=== PATIENT | female | born 1945 | race Two or more races ===

== ENCOUNTER 2017-06-09 14:55 | Emergency (ER) | payer MEDICAID ==
[~2017-06-09] VITALS: Ht 157.5 cm; Wt 56.7 kg
[~2017-06-09 14:55] MED LIST: ACETAMINOPHEN-1 EAC1 ORAL; GLUCOPHAGE1000 MG ORAL; GLUCOTROL XL5 MG PO; LIPITOR10 MG ORAL; METFORMIN HCL500 M1 ORAL; NKM; NORCO 5-325 TA1 EACH ORAL; THIAMINE HCL100 MG ORAL; [UNRECOGNIZED DRUG - REMARK]; metformin PO
[2017-06-09 15:14] VITALS: BP 124/95
[2017-06-09] MEDS ORDERED: NITROFURANTOIN100 M2 ORAL (15:22)
[2017-06-09 15:27] VITALS: BP 124/95
--- NOTE | 2017-06-09 15:43 | Emergency Room Report ---
History of Present Illness General Chief Complaint: General Complaint Source: Patient Present Illness HPI 72-year-old male brought in with daughter and granddaughter because adult daycare states patient has rash underneath his left breast, and foul-smelling vaginal discharge. Per family, sits in wet diaper for extended period of time History of uterine prolapse as per EMR and known urinary incontinence Patient herself denies polyuria, dysuria or discharge she denies abdominal pain, nausea or vomiting history of diabetes, compliant with medication Allergies: Coded Allergies: NO KNOWN DRUG ALLERGIES (Verified Allergy, Unknown, 06/09/17) Patient History Past Medical History: DM Past Surgical History: none Pertinent Family History: none Now: No Immunizations: UTD Reviewed Nursing Documentation: PMH: Agreed, PSxH: Agreed Nursing Documentation-PMH Hx Cardiac Problems: No Hx Hypertension: Yes Hx Diabetes: Yes Hx Gastrointestinal Problems: No Review of Systems All Other Systems: negative except mentioned in HPI Physical Exam Vital Signs Date Time Temp Pulse Resp B/P (MAP) Pulse Ox O2 Delivery O2 Flow Rate FiO2 06/09/17 15:04 74 20 124/95 99 Room Air Sp02 EP Interpretation: reviewed, normal General Appearance: normal inspection, well appearing, no apparent distress, alert, GCS 15, non-toxic Head: normocephalic, atraumatic Eyes: bilateral eye PERRL, bilateral eye EOMI ENT: normal ENT inspection, hearing grossly normal, normal pharynx, no angioedema, normal voice, TMs + canals normal, uvula midline, moist mucus membranes Neck: normal inspection, full range of motion, supple, thyroid normal, no meningismus, no bony tend Respiratory: normal inspection, lungs clear, normal breath sounds, no rhonchi, no respiratory distress, no retraction, no accessory muscle use, no wheezing, speaking full sentences Cardiovascular #1: regular rate, rhythm, no edema, no JVD, normal capillary refill Gastrointestinal: normal inspection, normal bowel sounds, non tender, soft, no mass, no peritonitis, non-distended, no guarding, no hernia, no pulsatile mass Genitourinary: no CVA tenderness Musculoskeletal: normal inspection, back normal, normal range of motion, no calf tenderness, pelvis stable, Pa's Sign negative Neurologic: normal inspection, alert, oriented x3, responsive, manager visual III-XII nml as tested, motor strength/tone normal, cerebellar normal, normal gait, speech normal Psychiatric: normal inspection, judgement/insight normal, mood/affect normal, no suicidal/homicidal ideation, no delusions Skin: other - done with MARYANNE Trevino present. There is moist skin breakdown underneath lateral aspects of both large/drooped breasts. No erythema, warmth or signs of infection Lymphatic: normal inspection, no adenopathy Medical Decision Making Diagnostic Impression: Primary Impression: Skin breakdown Additional Impression: Incontinence Qualified Codes: R32 - Unspecified urinary incontinence ER Course patient with stable vitals, afebrile Given the history of incontinence and uterine prolapse and reported discharge, will treat empirically for UTI There is skin breakdown under both breasts, recommended [id number] baby powder, no sign of infection or cellulitis currently Advise close primary care followup Patient refused to provide urinary sample for UA ER course: Patient has remained stable during ED stay. Disposition: Patient is to be discharged to home. Prescriptions given are macrobid Patient is instructed to follow up with their primary care doctor within 5 days. Strict return precautions discussed with patient such as fever, chills, worsening/severe pain, nausea, vomiting, which may indicate severe illness. Patient verbalizes understanding and agrees with plan. Please note that this Emergency Department Report was dictated using Comic Replyverification clerk technology software, occasionally this can lead to erroneous entry secondary to interpretation by the dictation equipment Last Vital Signs Date Time Temp Pulse Resp B/P (MAP) Pulse Ox O2 Delivery O2 Flow Rate FiO2 06/09/17 15:27 74 20 124/95 99 Room Air Status: improved Disposition: HOME, SELF-CARE Condition: Improved Scripts Nitrofurantoin Monohyd/M-Cryst* (MACROBID 100 MG*) 100 Mg Capsule 100 MG ORAL EVERY 12 HOURS for 7 Days, #14 CAP Prov: JARVIS HARRINGTON M.D. 06/09/17 Referrals: [facility],REFERR[facility] (PCP) Patient Instructions: Urinary Tract Infection, [id number] Additional Instructions: take all antibiotics until finished. Apply [id number] baby powder underneath both breasts daily after showering to reduce moisture in area. Follow up with primary care doctor for neurology or psychiatry referral to evaluate possibility of dementia JARVIS HARRINGTON M.D. Jun 09, 2017 15:43
== END 2017-06-09 16:12 | disposition home or self-care (01) ==
LOC: EMR 15:20
DX: L98.9 Disorder of the skin and subcutaneous tissue, unspecified (principal); R32 Unspecified urinary incontinence; I10 Essential (primary) hypertension; E11.9 Type 2 diabetes mellitus without complications
CPT/HCPCS: 99283

== ENCOUNTER 2018-07-28 22:31 | Inpatient (IN) | payer MEDICAID ==
[~2018-07-28] VITALS: Ht 152.4 cm; Wt 67.1 kg
[~2018-07-28 22:31] MED LIST changes: +NITROFURANTOIN100 M2 ORAL
[2018-07-28 23:05] VITALS: BP 160/103
--- NOTE | 2018-07-28 23:05 | NUR ---
ED Nurse Note: Pt arrived ED from Home. C/o vaginal bleeding today. Pt is A/O X4. Vital signs stable at this time. Waitng for orders.
--- NOTE | 2018-07-28 23:20 | NUR ---
ED Nurse Note: Blood sample collected and sent to Lab.
--- NOTE | 2018-07-28 23:31 | NUR ---
ED Nurse Note: Pt was sent down for CT of abdomen.
[2018-07-28 23:33] LABS: EOSINOPHILS % (AUTO) 5.4 % (0.0-3.0); HEMATOCRIT 25.3 % (37.0-47.0); HEMOGLOBIN 8.6 G/DL (12.0-16.0); LYMPHOCYTES % (AUTO) 15.3 % (20.0-45.0); MEAN CORPUSCULAR VOLUME 88 FL (80-99); MONOCYTES % (AUTO) 5.3 % (1.0-10.0); NEUTROPHILS % (AUTO) 72.9 % (45.0-75.0); PLATELET COUNT 284 K/UL (150-450); RED BLOOD COUNT 2.87 M/UL (4.20-5.40); RED CELL DISTRIBUTION WIDTH 12.4 % (11.6-14.8)
[2018-07-28 23:40] LABS: ANION GAP 7 mmol/L (5-15); BLOOD UREA NITROGEN 34 mg/dL (7-18); CALCIUM 8.5 MG/DL (8.5-10.1); CARBON DIOXIDE 25 MMOL/L (21-32); CHLORIDE 101 MMOL/L (98-107); CREATININE 1.6 MG/DL (0.55-1.30); POTASSIUM 5.3 MMOL/L (3.5-5.1); SODIUM 133 MMOL/L (136-145)
[2018-07-28 23:45] LABS: ALANINE AMINOTRANSFERASE 11 U/L (12-78); ALBUMIN/GLOBULIN RATIO 0.7 (1.0-2.7); ALKALINE PHOSPHATASE 92 U/L (46-116); ASPARTATE AMINO TRANSFERASE 9 U/L (15-37); BILIRUBIN,TOTAL 0.2 MG/DL (0.2-1.0)
[2018-07-29 00:10] LABS: APPEARANCE,URINE CLOUDY; BILIRUBIN, URINE NEGATIVE (NEGATIVE); GLUCOSE, URINE (UA) 2+ (NEGATIVE); KETONES,URINE NEGATIVE (NEGATIVE); LEUKOCYTE ESTERASE ,URINE 3+ (NEGATIVE); NITRITE,URINE NEGATIVE (NEGATIVE); PH,URINE 6 (4.5-8.0); PROTEIN,URINE 3+ (NEGATIVE); UROBILINOGEN,URINE NORMAL MG/DL (0.0-1.0)
[2018-07-29 00:19] LABS: COLOR,URINE RED
[2018-07-29] MEDS ORDERED: ASPIRIN81 MG ORAL (02:12)
[2018-07-29] MEDS ORDERED: FLUOCINONIDE-E15 G1 TP (02:12)
[2018-07-29] MEDS ORDERED: CARVEDILOL3.125 MG ORAL (02:12)
[2018-07-29] MEDS ORDERED: GABAPENTIN300 MG ORAL (02:12)
[2018-07-29] MEDS ORDERED: ZANTAC150 MG ORAL (02:12)
[2018-07-29] MEDS ORDERED: METFORMIN HCL500 M1 ORAL (02:12)
[2018-07-29] MEDS ORDERED: LISINOPRIL2.5 MG ORAL (02:12)
[2018-07-29] MEDS ORDERED: IBUPROFEN600 MG ORAL (02:12)
[2018-07-29] MEDS ORDERED: PLAVIX75 MG ORAL (02:12)
[2018-07-29] MEDS ORDERED: Tylenol #3 tab (300mg/30mg) ORAL ONE (02:15)
--- NOTE | 2018-07-29 02:20 | Emergency Room Report ---
History of Present Illness General Chief Complaint: Vaginal Source: Patient, Family Member Present Illness [facility] This a 73-year-old female who has history of diabetes and high blood pressure. She presents with chief complaint of vaginal bleeding. Onset today. Bleeding is heavy like a normal menstrual period. Patient is complaining of cramping pain. No nausea no vomiting. According to family for last couple months she's been getting paler. No trauma. Questional weight loss. No nausea no vomiting. Pain is 7 out of 10. No radiation. She has a history of uterine prolapse. Did not require surgery. Allergies: Coded Allergies: NO KNOWN DRUG ALLERGIES (Verified Allergy, Unknown, 06/09/17) Patient History Past Medical History: see triage record, old chart reviewed, DM, HTN Past Surgical History: other Pertinent Family History: none Social History: Denies: smoking Last Menstrual Period: 3 decades ago Now: No Immunizations: other Reviewed Nursing Documentation: PMH: Agreed; PSxH: Agreed Nursing Documentation-PMH Hx Cardiac Problems: No Hx Hypertension: Yes Hx Diabetes: Yes Hx Gastrointestinal Problems: No Review of Systems Eye: Denies: eye pain, blurred vision ENT: Denies: ear pain, nose congestion, throat swelling Respiratory: Denies: cough, shortness of breath Cardiovascular: Denies: chest pain, palpitations Gastrointestinal: Denies: abdominal pain, diarrhea, nausea, vomiting Genitourinary: Reports: vag bleed/dc Musculoskeletal: Denies: back pain, joint pain Skin: Denies: rash Neurological: Denies: headache, numbness Endocrine: Denies: increased thirst, increased urine Hematologic/Lymphatic: Denies: easy bruising All Other Systems: negative except mentioned in HPI Physical Exam Vital Signs Date Time Temp Pulse Resp B/P (MAP) Pulse Ox O2 Delivery O2 Flow Rate FiO2 07/28/18 22:41 98.1 70 16 89/50 96 Room Air vitals with hypotension. Repeat blood pressure Normal Sp02 EP Interpretation: reviewed, normal General Appearance: well appearing, no apparent distress, alert Head: normocephalic, atraumatic Eyes: bilateral eye PERRL, bilateral eye EOMI, bilateral eye conjunctivae pale ENT: hearing grossly normal, normal pharynx Neck: full range of motion, supple, no meningismus Respiratory: chest non-tender, lungs clear, normal breath sounds Cardiovascular #1: regular rate, rhythm, no murmur Gastrointestinal: normal bowel sounds, non tender, no mass, no organomegaly, no bruit, non-distended Genitourinary: other - Blood clots in the vagina. Musculoskeletal: back normal, gait/station normal, normal range of motion Neurologic: alert, oriented x3 Psychiatric: mood/affect normal Skin: warm/dry Medical Decision Making Diagnostic Impression: Primary Impression: Uterine malignancy Qualified Codes: C55 - Malignant neoplasm of uterus, part unspecified Additional Impressions: Abnormal vaginal bleeding Anemia Qualified Codes: D64.9 - Anemia, unspecified UTI (urinary tract infection) Qualified Codes: N30.00 - Acute cystitis without hematuria Hyperglycemia due to type 2 diabetes mellitus Qualified Codes: E11.65 - Type 2 diabetes mellitus with hyperglycemia ER Course Patient presents with postmenopausal she no bleeding. This is very concerning for neoplastic process. CT scan showed suspicion for endometrial carcinoma. Pelvic ultrasound limited because of patient's lack of cooperation. She still has bleeding and is anemic. Her last hemoglobin was September 2015 and it was 12.1. This is a big drop. Will admit for further workup and CLERICAL AIDE TEACHER consult. I discussed the case with Dr. Mckeon who accepted patient for admission. Lab Results Impression labs with anemia CT/MRI/US Diagnostic Results CT/MRI/US Diagnostic Results #1: Imaging Test Ordered: CT abdomen and pelvis Impression Read by radiologist. Market abnormality of the uterus. Fundus of uterus demonstrate significant endometrial thickening measured greater than 18 mm. There is gas within the endometrium. Findings suspicious for endometrial carcinoma. CT/MRI/US Diagnostic Results #2: Imaging Test Ordered: Pelvic ultrasound Impression Read by radiologist. Limited study because patient had a hard time tolerating the examination. Markedly enlarged and heterogeneous endometrium. Last Vital Signs Date Time Temp Pulse Resp B/P (MAP) Pulse Ox O2 Delivery O2 Flow Rate FiO2 07/28/18 23:05 98.1 71 16 160/103 96 Room Air Status: improved Disposition: ADMITTED INPATIENT Condition: Serious Referrals: [facility],REFERRING (PCP) Gabino Hennessy MD Jul 29, 2018 02:20
[2018-07-29 02:30] VITALS: BP 126/44
--- NOTE | 2018-07-29 02:35 | NUR ---
TRANSFER TO FLOOR: Patient transferred to /S [facility] as ordered . Report given to Rosemary/MARYANNE, Meagan/Alyssa. Belongings sent with Pt and rechecked with RN.
[2018-07-29 04:00] VITALS: BP 115/43
--- NOTE | 2018-07-29 04:00 | NUR ---
NURSE NOTES: Called Dr Mckeon and left a message for admission orders. Waiting for response. Will try again
--- NOTE | 2018-07-29 05:30 | NUR ---
NURSE NOTES: Called Dr Mckeon and left a message for admission orders. Waiting for response. Will try again
--- NOTE | 2018-07-29 06:14 | NUR ---
NURSE NOTES: 3rd call placed to Dr. Mckeon for admission orders. Awaiting call back.
[2018-07-29] MEDS ORDERED: Morphine Sulfate 2mg/ml Inj(IV/IM USE ONLY) IVP PRN (07:00)
--- NOTE | 2018-07-29 07:43 | NUR ---
HAND-OFF: Report given to Linda MADDEN.
[2018-07-29 08:00] VITALS: BP 110/44
--- NOTE | 2018-07-29 08:17 | NUR ---
NURSE NOTES: Patient is alert to name and place. Patient is near nurse's station. Bed alarm, side rails are up x2. Patient is on room air. No reports of discomfort at the moment. Will continue to monitor.
[2018-07-29] MEDS ORDERED: metFORMIN 500mg tab ORAL SCH (09:00)
--- NOTE | 2018-07-29 09:21 | NUR ---
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
--- NOTE | 2018-07-29 09:27 | Diagnostic Imaging Report ---
Indication: Abdominal pain for 3 days Technique: Spiral acquisitions obtained through the abdomen and pelvis. No oral contrast utilized, per emergency room physician request No IV contrast utilized, per emergency room physician request.. Multiplanar reconstructions were generated. Total dose length product 856.14 mGycm. CTDIvol(s) 18.84 mGy. Dose reduction achieved using automated exposure control Comparison: 08/28/[address] Findings: There is a pessary in place in the vaginal vault. Scanner in marked improvement of previously demonstrated pelvic floor prolapse. An unusual structure is seen anterior to the pessary in the vaginal vault. The more inferior aspect of this within the vagina is very well-circumscribed, ovoid and cylindrical, possibly representing an artificial obstruction. However, posterior to this it is more ill-defined and is contiguous with endometrial and cervical thickening and unusual gas bubbles. Within the uterus, the endometrium is thickened. A small amount of gas is seen within the endometrium in the upper uterine fundus. The appendix is normal. There is colonic diverticulosis. No evidence of diverticulitis. No free or loculated intraperitoneal gas or fluid is evident. There is a tiny fat-containing central ventral hernia. No small bowel distention. There is a small sliding-type hiatal hernia. The remainder of the stomach is unremarkable. The duodenum is unremarkable. Lack of IV contrast limits assessment of solid organs. Gallstones are evident, also described previously. The liver is grossly unremarkable. No biliary ductal dilatation. Pancreas, spleen, adrenals are unremarkable. There is interim marked atrophy of the left kidney. There is mild to moderate left hydronephrosis, but no evidence of hydroureter. No evidence of downstream obstructive ureteral lesion. The right kidney, ureters, and bladder are unremarkable. The included lung bases are clear. The bones demonstrate degenerative spondylosis changes. Impression: Interim correction of previously demonstrated pelvic floor prolapse. Pessary in place. Unusual gas and solid structure in the posterior vagina anterior to the pessary. Well circumscribed cylindrical appearance to this inferiorly suggests this could be related to prior surgery. However, this is less well-defined posteriorly, and it is contiguous with thickening of the endometrium and gas within the endometrium. This raises concern for endometrial pathology such as endometritis and/or and endometrial neoplasm. Gynecological consultation is recommended. Interim marked atrophy of the left kidney. Mild hydronephrosis raises possibility of this could be due to obstruction at the ureteropelvic junction. However, the possibility of unilateral renal artery stenosis or occlusion should also be considered as etiology. No acute abdominal pathology Diverticulosis. No evidence of diverticulitis Cholelithiasis, also previously described Other findings as noted, including tiny fat-containing ventral hernia, small sliding-type hiatal hernia, degenerative spondylosis This agrees with the preliminary interpretation provided overnight by [facility] teleradiology service. The CT scanner at [facility] is accredited by the [employer] and the scans are performed using protocols designed to limit radiation exposure to as low as reasonably achievable to attain images of sufficient resolution adequate for diagnostic evaluation.
--- NOTE | 2018-07-29 11:25 | NUR ---
*-* INSURANCE *-* ALL CLINICALS, REVIEWS HAVE BEEN FAXED TO: MARSHALL RIBERA P:[phone] F:[phone] F: [phone]
--- NOTE | 2018-07-29 11:57 | Diagnostic Imaging Report ---
Indication: Pelvic pain and bleeding, postmenopausal patient, abnormal CT scan Technique: Transabdominal images. Limited endovaginal images, patient has limited ability to tolerate. Comparison: Reference made to CT scan performed 2 hours earlier Findings: Uterus measures 6.3 cm length by 4 cm AP. Endometrium is thickened, measuring up to 14 mm thick. Echogenic foci may reflect gas seen within the endometrium on recent CT. The cervical and vaginal abnormality demonstrated on prior CT is not clearly evident. Neither ovary could be demonstrated. Impression: Limited exam, as described Endometrial thickening, concerning for infection or neoplasm given findings on recent CT scan This agrees with the preliminary interpretation provided overnight by [facility] service.
[2018-07-29 12:00] VITALS: BP 140/55
--- NOTE | 2018-07-29 12:48 | Consultation ---
History of Present Illness General Date patient seen: Jul 29, 2018 Chief Complaint: Vaginal Present Illness HPI 73-year-old female with hx of DM, HTN, presented to ER with chief complaint of heavy vaginal bleeding for one day. Patient is complaining of cramping pain as well. No nausea no vomiting. According to family for last couple months she 's been getting paler. she was found anemic and admitted for further management. Allergies: Coded Allergies: NO KNOWN DRUG ALLERGIES (Verified Allergy, Unknown, 06/09/17) Medication History Scheduled Aspirin* (Aspirin*), 81 MG ORAL DAILY, (Reported) Atorvastatin Calcium* (Lipitor*), 10 MG ORAL BEDTIME Carvedilol* (Carvedilol*), 3.125 MG ORAL EVERY 12 HOURS, (Reported) Clopidogrel Bisulfate* (Plavix*), 75 MG ORAL DAILY, (Reported) Gabapentin* (Gabapentin*), 300 MG ORAL BEDTIME, (Reported) Glipizide* (Glucotrol Xl*), 1 TAB PO BID, (Reported) Lisinopril* (Lisinopril*), 2.5 MG ORAL DAILY, (Reported) Metformin Hcl (Glucophage), 1,000 MG ORAL DAILY, (Reported) Metformin Hcl* (Metformin Hcl*), 500 MG ORAL TWICE A DAY, (Reported) Metformin Hcl* (Metformin Hcl*), 500 MG ORAL TWICE A DAY, (Reported) Nitrofurantoin Monohyd/M-Cryst* (Macrobid 100 Mg*), 100 MG ORAL EVERY 12 HOURS No Known Medications* (NKM - No Known Medications*), 0 ., (Reported) Ranitidine Hcl* (Zantac*), 150 MG ORAL DAILY, (Reported) Thiamine Hcl (Vitamin B1*), 100 MG ORAL DAILY [metformin], 1 TAB PO BID, (Reported) Scheduled PRN Acetaminophen With Codeine (T#3) (Tylenol #3 Tab*), 1 TAB ORAL Q6H PRN for For Pain Hydrocodone Bit/Acetaminophen 5-325* (Fellows 5-325*), 1 TAB ORAL Q6H PRN for For Pain Ibuprofen* (Motrin*), 400 MG ORAL Q6H PRN for For Pain, (Reported) Miscellaneous Medications Fluocinonide/Emollient (Fluocinonide-E 0.05% Cream), 15 GM TP, (Reported) [unk HTN pill], (Reported) Patient History Healthcare decision maker Resuscitation status Full Code Advanced Directive on File No Past Medical/Surgical History Past Medical/Surgical History: (1) Hypertension, uncontrolled (2) Diabetes mellitus (3) Alcohol dependence (4) Incontinence Review of Systems All Other Systems: negative except mentioned in HPI Physical Exam General Appearance: WD/WN, no apparent distress Lines, tubes and drains: peripheral HEENT: normocephalic, atraumatic Neck: non-tender, normal alignment Respiratory/Chest: chest wall non-tender, lungs clear Cardiovascular/Chest: normal peripheral pulses, normal rate Abdomen: normal bowel sounds, non tender Genitourinary/Rectal: normal genital exam Extremities: normal range of motion Last 24 Hour Vital Signs Date Time Temp Pulse Resp B/P (MAP) Pulse Ox O2 Delivery O2 Flow Rate FiO2 07/29/18 12:00 99.0 74 16 140/55 (83) 95 07/29/18 08:42 68 110/44 07/29/18 08:00 97.5 68 16 110/44 (66) 96 07/29/18 08:00 Room Air 07/29/18 04:00 97.3 63 18 115/43 (67) 97 07/29/18 02:55 98.1 07/29/18 02:35 98.1 72 16 125/87 97 Room Air 07/29/18 02:30 97.2 64 18 126/44 (71) 100 07/29/18 02:30 Room Air 07/28/18 23:05 98.1 71 16 160/103 96 Room Air 07/28/18 22:41 98.1 70 16 89/50 96 Room Air Intake and Output 07/28/18 07/29/18 19:00 07:00 Intake Total 1100 ml Balance 1100 ml Intake IV Total 1100 ml # Voids 1 Laboratory Tests Test 07/28/18 23:08 07/28/18 23:55 White Blood Count 15.0 K/UL (4.8-10.8) H Red Blood Count 2.87 M/UL (4.20-5.40) L Hemoglobin 8.6 G/DL (12.0-16.0) L Hematocrit 25.3 % (37.0-47.0) L Mean Corpuscular Volume 88 FL (80-99) Mean Corpuscular Hemoglobin 30.1 PG (27.0-31.0) Mean Corpuscular Hemoglobin Concent 34.1 G/DL (32.0-36.0) Red Cell Distribution Width 12.4 % (11.6-14.8) Platelet Count 284 K/UL (150-450) Mean Platelet Volume 6.6 FL (6.5-10.1) Neutrophils (%) (Auto) 72.9 % (45.0-75.0) Lymphocytes (%) (Auto) 15.3 % (20.0-45.0) L Monocytes (%) (Auto) 5.3 % (1.0-10.0) Eosinophils (%) (Auto) 5.4 % (0.0-3.0) H Basophils (%) (Auto) 1.0 % (0.0-2.0) Sodium Level 133 MMOL/L (136-145) L Potassium Level 5.3 MMOL/L (3.5-5.1) H Chloride Level 101 MMOL/L (98-107) Carbon Dioxide Level 25 MMOL/L (21-32) Anion Gap 7 mmol/L (5-15) Blood Urea Nitrogen 34 mg/dL (7-18) H Creatinine 1.6 MG/DL (0.55-1.30) H Estimat Glomerular Filtration Rate mL/min (>60) Glucose Level 320 MG/DL (74-106) H Calcium Level 8.5 MG/DL (8.5-10.1) Total Bilirubin 0.2 MG/DL (0.2-1.0) Aspartate Amino Transf (AST/SGOT) 9 U/L (15-37) L Alanine Aminotransferase (ALT/SGPT) 11 U/L (12-78) L Alkaline Phosphatase 92 U/L (46-116) Total Protein 7.4 G/DL (6.4-8.2) Albumin 3.0 G/DL (3.4-5.0) L Globulin 4.4 g/dL Albumin/Globulin Ratio 0.7 (1.0-2.7) L Lipase 296 U/L (73-393) Urine Color Red Urine Appearance Cloudy Urine pH 6 (4.5-8.0) Urine Specific [place] 1.010 (1.005-1.035) Urine Protein 3+ (NEGATIVE) H Urine Glucose (UA) 2+ (NEGATIVE) H Urine Ketones Negative (NEGATIVE) Urine Blood 5+ (NEGATIVE) H Urine Nitrite Negative (NEGATIVE) Urine Bilirubin Negative (NEGATIVE) Urine Urobilinogen Normal MG/DL (0.0-1.0) Urine Leukocyte Esterase 3+ (NEGATIVE) H Urine RBC Tntc /HPF (0 - 2) H Urine WBC 5-10 /HPF (0 - 2) H Urine Squamous Epithelial Cells Few /LPF (NONE/OCC) Urine Bacteria Few /HPF (NONE) Height (Feet): 5 Height (Inches): 0.00 Weight (Pounds): 148 Medications Current Medications Medications (Trade) Dose Ordered Sig/Kannan Route PRN Reason Start Time Stop Time Status Last Admin Dose Admin Acetaminophen (Tylenol) 650 mg Q6H PRN ORAL Mild Pain/Temp > 100.5 07/29/18 07:00 08/28/18 06:59 Acetaminophen/ Hydrocodone Bitart (Fellows 5/325) 1 tab Q6H PRN ORAL Moderate Pain (Pain Scale 4-6) 07/29/18 07:00 08/05/18 06:59 Carvedilol (Coreg) 3.125 mg EVERY 12 HOURS ORAL 07/29/18 09:00 08/28/18 08:59 Dextrose (Dextrose 50%) 25 ml Q30M PRN IV Hypoglycemia 07/29/18 07:00 08/28/18 06:59 Dextrose (Dextrose 50%) 50 ml Q30M PRN IV Hypoglycemia 07/29/18 07:00 08/28/18 06:59 Famotidine (Pepcid) 20 mg DAILY ORAL 07/29/18 09:00 08/28/18 08:59 07/29/18 08:42 Fluocinonide (Lidex) 1 applic DAILY TOPIC 07/29/18 10:00 08/28/18 09:59 Gabapentin (Neurontin) 300 mg BEDTIME ORAL 07/29/18 21:00 08/28/18 20:59 Insulin Aspart (NovoLOG) BEFORE MEALS AND HS SUBQ 07/29/18 11:30 08/28/18 11:29 Morphine Sulfate (Morphine Sulfate) 2 mg Q4H PRN IVP Severe Pain (Pain Scale 7-10) 07/29/18 07:00 08/05/18 06:59 Ondansetron HCl (Zofran) 4 mg Q4H PRN IVP Nausea & Vomiting 07/29/18 07:00 08/28/18 06:59 Sodium Chloride 1,000 ml @ 75 mls/hr [id number] IV 07/29/18 07:30 08/28/18 07:29 07/29/18 08:42 Assessment/Plan Problem List: (1) Uterine malignancy ICD Codes: C55 - Malignant neoplasm of uterus, part unspecified SNOMED: 722509808 Qualifiers: Qualified Codes: C55 - Malignant neoplasm of uterus, part unspecified (2) Anemia ICD Codes: D64.9 - Anemia, unspecified SNOMED: 678783670 Qualifiers: Qualified Codes: D64.9 - Anemia, unspecified (3) UTI (urinary tract infection) ICD Codes: N39.0 - Urinary tract infection, site not specified SNOMED: 33501176, 51076135 Qualifiers: Qualified Codes: N30.00 - Acute cystitis without hematuria (4) Abnormal vaginal bleeding ICD Codes: N93.9 - Abnormal uterine and vaginal bleeding, unspecified SNOMED: 738047222 (5) Diabetes mellitus ICD Codes: E11.9 - Type 2 diabetes mellitus without complications SNOMED: 98936107 (6) Incontinence ICD Codes: R32 - Unspecified urinary incontinence SNOMED: 44849907 Assessment/Plan tumor markers [facility] and oncology evaluation prn prbc sliding scale diabetic diet symptomatic treatment. Oscar Quezada MD Jul 29, 2018 12:48
[2018-07-29] MEDS: Fluocinonide 15gm Cream TOPIC SCH (13:03)
[2018-07-29] MEDS: NovoLOG Insulin Flexpen SUBQ SCH ×3 (13:43→21:50)
[2018-07-29 15:14] LABS: CREATINE KINASE 43 U/L (26-308)
--- NOTE | 2018-07-29 15:20 | NUR ---
NURSE NOTES: Responded to Bed Alarm and discovered that patient pulled out 2nd IV today, and was attempting to get dressed, putting her shoes on. Stated in Burkinan that she wanted to go home. Reoriented by Primary RN Maggie in Burkinan. Bed in low position, and I am remaining at bedside with patient, as she continues to try to get out of bed, and is unsteady on feet. New IV started in RFA and wrapped with gauze. Called daughter Manisha and she spoke to patient, explaining that she plans to come to the hospital in approximately 2 hours. Assisted to Bedside Commode and Urine specimen obtained and sent to lab per Md order
[2018-07-29] MEDS: Piperacillin/Tazobactam 3.375 GM in NS 110 ML IVPB SCH ×2 (15:27→23:10)
[2018-07-29 16:00] VITALS: BP 133/68
[2018-07-29] MEDS ORDERED: NovoLOG Insulin Flexpen SUBQ SCH (16:30)
[2018-07-29 16:34] LABS: APPEARANCE,URINE SLIGHTLY CLOUDY; BILIRUBIN, URINE NEGATIVE (NEGATIVE); GLUCOSE, URINE (UA) NEGATIVE (NEGATIVE); KETONES,URINE NEGATIVE (NEGATIVE); LEUKOCYTE ESTERASE ,URINE 3+ (NEGATIVE); NITRITE,URINE NEGATIVE (NEGATIVE); PH,URINE 7 (4.5-8.0); PROTEIN,URINE 3+ (NEGATIVE); UROBILINOGEN,URINE NORMAL MG/DL (0.0-1.0)
[2018-07-29 16:36] LABS: COLOR,URINE RED
[2018-07-29] MEDS: LORazepam Inj 2mg/ml 1ml IV PRN ×2 (17:30→22:50)
--- NOTE | 2018-07-29 19:25 | NUR ---
NURSE NOTES: Patient observed pulling out IV x4. Patient restless and attempting to get out of bed. Patient is unsteady. Patient is non-compliant. Bilateral soft wrist restraints applied. Will continue to monitor.
--- NOTE | 2018-07-29 19:26 | NUR ---
HAND-OFF: Report given to MARYANNE Allan.
--- NOTE | 2018-07-29 19:27 | History & Physical ---
History and Physical History & Physicial Dictated for Int Med-Dr Mckeon no. [id number] Rhys Yousif MD Jul 29, 2018 19:27
--- NOTE | 2018-07-29 22:02 | History and Physical Report ---
DATE OF ADMISSION: 07/29/2018 CHIEF COMPLAINT: The patient is a 73-year-old female, presents with a chief complaint of vaginal bleeding. HISTORY OF PRESENT ILLNESS: Began one day prior to admission. The patient began to experience vaginal bleeding. The patient states it was like her normal period; however, she has been postmenopausal for several years. The patient complains of cramping with the bleeding. The patient presented to [facility]. The patient is admitted with post menopausal vaginal bleeding to rule out acute uterine carcinoma. REVIEW OF SYSTEMS: CONSTITUTIONAL: The patient denies weight loss or weight gain. The patient denies fevers or chills. HEENT: The patient denies ear or throat pain. The patient denies headache. CARDIOVASCULAR: The patient denies palpitations or chest pain. CHEST: The patient denies wheeze or shortness of breath. ABDOMEN: The patient denies nausea, vomiting, diarrhea, or constipation. GENITOURINARY: The patient complains of vaginal bleeding as above. The patient denies dysuria or increased frequency of urination. NEUROMUSCULAR: The patient denies seizures or generalized weakness. PAST MEDICAL HISTORY: Significant for: 1. Type 2 diabetes. 2. Hypercholesterolemia. PAST SURGICAL HISTORY: The patient denies. CURRENT MEDICATIONS: 1. Aspirin 81 mg one tablet p.o. daily. 2. Lipitor 10 mg p.o. daily. 3. Carvedilol 3.125 mg p.o. twice daily. 4. Plavix 75 mg p.o. daily. 5. Gabapentin 300 mg p.o. at nightly. 6. Glipizide 5 mg p.o. twice daily. 7. Lisinopril 2.5 mg p.o. daily. 8. Metformin 1000 mg p.o. twice daily. 9. Zantac 150 mg p.o. daily. ALLERGIES: No known drug allergies. SOCIAL HISTORY: The patient is single and lives alone. The patient denies tobacco or alcohol use. PHYSICAL EXAMINATION: VITAL SIGNS: Temperature 97.3, respirations 18, pulse 63, and blood pressure 115/43. GENERAL: The patient is a well-developed and well-nourished female, in no apparent distress. HEENT: Eyes - pupils are equal and responsive to light and accommodation. Extraocular movements are intact. NECK: Supple without lymphadenopathy. CHEST: Lungs are clear to auscultation bilaterally without wheezes or rales. CARDIOVASCULAR: Regular rhythm and rate. S1 and S2 are normal without murmurs, rubs, or gallops. ABDOMEN: Soft, nontender, and nondistended. Positive bowel sounds. No evidence of hepatosplenomegaly. Currently, no rebound or guarding noted. EXTREMITIES: Negative for clubbing, cyanosis, or edema. RECTAL/GENITAL: Refused. NEUROLOGIC: Cranial nerves II through XII are grossly intact without focal deficits. Motor strength is 5/5 bilaterally. Deep tendon reflexes are 2+ plantar. LABORATORY STUDIES: WBC 15.0, hemoglobin 8.6, hematocrit 25.3, and platelets 284,000. Sodium 133, potassium 5.3, chloride 101, CO2 25, BUN 34, creatinine 1.6, and glucose 320. A CT scan of the abdomen and pelvis revealed thickening of the uterine endometrium. A transvaginal pelvic ultrasound revealed endometrial thickening. ASSESSMENT: This is a 73-year-old female. 1. Postmenopausal vaginal bleeding. 2. Probable endometrial cancer versus endometrial hyperplasia. 3. Pelvic pain. 4. Diabetes type 2. 5. Hypercholesterolemia. TREATMENT: 1. Postmenopausal vaginal bleeding/endometrial hyperplasia. A CUSTOMER SERVICE DRIVER consultation has been obtained with . We will follow recommendations of CUSTOMER SERVICE DRIVER. The patient will require an endometrial biopsy during this hospitalization. An Oncology consultation with Dr. Cruzito Willson. 2. Diabetes type 2. Regular insulin sliding scale has been instituted. 3. Hypercholesterolemia. Continue Lipitor as above. 4. Hypertension. Continue Coreg as above. Rhys Yousif M.D. DR: LIZZY JOB#: [id number] CC:
--- NOTE | 2018-07-29 23:59 | Consultation ---
History of Present Illness General Chief Complaint: Vaginal Present Illness Allergies: Coded Allergies: NO KNOWN DRUG ALLERGIES (Verified Allergy, Unknown, 06/09/17) Medication History Scheduled Aspirin* (Aspirin*), 81 MG ORAL DAILY, (Reported) Carvedilol* (Carvedilol*), 3.125 MG ORAL EVERY 12 HOURS, (Reported) Clopidogrel Bisulfate* (Plavix*), 75 MG ORAL DAILY, (Reported) Gabapentin* (Gabapentin*), 300 MG ORAL BEDTIME, (Reported) Lisinopril* (Lisinopril*), 2.5 MG ORAL DAILY, (Reported) Metformin Hcl* (Metformin Hcl*), 500 MG ORAL TWICE A DAY, (Reported) Ranitidine Hcl* (Zantac*), 150 MG ORAL DAILY, (Reported) Scheduled PRN Ibuprofen* (Motrin*), 400 MG ORAL Q6H PRN for For Pain, (Reported) Miscellaneous Medications Fluocinonide/Emollient (Fluocinonide-E 0.05% Cream), 15 GM TP, (Reported) Discontinued Medications Acetaminophen With Codeine (T#3) (Tylenol #3 Tab*), 1 TAB ORAL Q6H PRN for For Pain Discontinued Reason: Pt stopped taking med Atorvastatin Calcium* (Lipitor*), 10 MG ORAL BEDTIME Discontinued Reason: Pt stopped taking med Glipizide* (Glucotrol Xl*), 1 TAB PO BID, (Reported) Discontinued Reason: Pt stopped taking med Hydrocodone Bit/Acetaminophen 5-325* ([place] 5-325*), 1 TAB ORAL Q6H PRN for For Pain Discontinued Reason: Pt stopped taking med Metformin Hcl (Glucophage), 1,000 MG ORAL DAILY, (Reported) Discontinued Reason: Pt stopped taking med Nitrofurantoin Monohyd/M-Cryst* (Macrobid 100 Mg*), 100 MG ORAL EVERY 12 HOURS Discontinued Reason: Pt stopped taking med No Known Medications* (NKM - No Known Medications*), 0 ., (Reported) Discontinued Reason: Pt stopped taking med Thiamine Hcl (Vitamin B1*), 100 MG ORAL DAILY Discontinued Reason: Pt stopped taking med [metformin], 1 TAB PO BID, (Reported) Discontinued Reason: Pt stopped taking med [unk HTN pill], (Reported) Discontinued Reason: Pt stopped taking med Patient History Healthcare decision maker Resuscitation status Full Code Advanced Directive on File No Physical Exam Last 24 Hour Vital Signs Date Time Temp Pulse Resp B/P (MAP) Pulse Ox O2 Delivery O2 Flow Rate FiO2 07/29/18 21:45 83 124/52 07/29/18 16:00 98.3 81 16 133/68 (89) 96 07/29/18 12:00 99.0 74 16 140/55 (83) 95 07/29/18 08:42 68 110/44 07/29/18 08:00 97.5 68 16 110/44 (66) 96 07/29/18 08:00 Room Air 07/29/18 04:00 97.3 63 18 115/43 (67) 97 07/29/18 02:55 98.1 07/29/18 02:35 98.1 72 16 125/87 97 Room Air 07/29/18 02:30 97.2 64 18 126/44 (71) 100 07/29/18 02:30 Room Air Intake and Output 07/28/18 07/29/18 18:59 06:59 Intake Total 1100 ml Balance 1100 ml Intake IV Total 1100 ml # Voids 1 Laboratory Tests Test 07/28/18 23:55 07/29/18 14:40 07/29/18 15:35 Urine Color Red Red Urine Appearance Cloudy Slightly cloudy Urine pH 6 (4.5-8.0) 7 (4.5-8.0) Urine Specific [place] 1.010 (1.005-1.035) 1.005 (1.005-1.035) Urine Protein 3+ (NEGATIVE) H 3+ (NEGATIVE) H Urine Glucose (UA) 2+ (NEGATIVE) H Negative (NEGATIVE) Urine Ketones Negative (NEGATIVE) Negative (NEGATIVE) Urine Blood 5+ (NEGATIVE) H 5+ (NEGATIVE) H Urine Nitrite Negative (NEGATIVE) Negative (NEGATIVE) Urine Bilirubin Negative (NEGATIVE) Negative (NEGATIVE) Urine Urobilinogen Normal MG/DL (0.0-1.0) Normal MG/DL (0.0-1.0) Urine Leukocyte Esterase 3+ (NEGATIVE) H 3+ (NEGATIVE) H Urine RBC Tntc /HPF (0 - 2) H Tntc /HPF (0 - 2) H Urine WBC 5-10 /HPF (0 - 2) H Tntc /HPF (0 - 2) H Urine Squamous Epithelial Cells Few /LPF (NONE/OCC) Few /LPF (NONE/OCC) Urine Bacteria Few /HPF (NONE) Many /HPF (NONE) H Uric Acid 4.7 MG/DL (2.6-7.2) Total Creatine Kinase 43 U/L (26-308) Urine Eosinophils None seen (NONE SEEN) Urine Random Sodium 27 mmol/L (20-110) Urine Potassium Timed 32 mmol/L (12-62) Height (Feet): 5 Height (Inches): 0.00 Weight (Pounds): 148 Medications Current Medications Medications (Trade) Dose Ordered Sig/Kannan Route PRN Reason Start Time Stop Time Status Last Admin Dose Admin Acetaminophen (Tylenol) 650 mg Q6H PRN ORAL Mild Pain/Temp > 100.5 07/29/18 07:00 08/28/18 06:59 Acetaminophen/ Hydrocodone Bitart ([place] 5/325) 1 tab Q6H PRN ORAL Moderate Pain (Pain Scale 4-6) 07/29/18 07:00 08/05/18 06:59 Carvedilol (Coreg) 3.125 mg EVERY 12 HOURS ORAL 07/29/18 09:00 08/28/18 08:59 07/29/18 21:45 Dextrose (Dextrose 50%) 25 ml Q30M PRN IV Hypoglycemia 07/29/18 07:00 08/28/18 06:59 Dextrose (Dextrose 50%) 50 ml Q30M PRN IV Hypoglycemia 07/29/18 07:00 08/28/18 06:59 Famotidine (Pepcid) 20 mg DAILY ORAL 07/29/18 09:00 08/28/18 08:59 07/29/18 08:42 Fluocinonide (Lidex) 1 applic DAILY TOPIC 07/29/18 10:00 08/28/18 09:59 07/29/18 13:03 Gabapentin (Neurontin) 300 mg BEDTIME ORAL 07/29/18 21:00 08/28/18 20:59 07/29/18 21:45 Insulin Aspart (NovoLOG) BEFORE MEALS AND HS SUBQ 07/29/18 11:30 08/28/18 11:29 07/29/18 21:50 Lorazepam (Ativan 2mg/ml 1ml) 0.5 mg Q4H PRN IV For Anxiety 07/29/18 17:15 08/05/18 17:14 07/29/18 22:50 Morphine Sulfate (Morphine Sulfate) 2 mg Q4H PRN IVP Severe Pain (Pain Scale 7-10) 07/29/18 07:00 08/05/18 06:59 Ondansetron HCl (Zofran) 4 mg Q4H PRN IVP Nausea & Vomiting 07/29/18 07:00 08/28/18 06:59 Piperacillin Sod/ Tazobactam Sod 3.375 gm/Sodium Chloride 110 ml @ 27.5 mls/hr Q12HR IVPB 07/29/18 14:00 08/05/18 13:59 07/29/18 23:10 Sodium Chloride 1,000 ml @ 150 mls/hr Q6H40M IV 07/29/18 13:00 08/28/18 12:59 07/29/18 19:40 Assessment/Plan Assessment/Plan Hematology/Oncology Consultation Requesting MD: Ari Mckeon Date of Service: 07/29/18 Reason for consultation: Leukocytosis, Anemia and possible uterine carcinoma. HISTORY OF PRESENT ILLNESS: This is a 73 years old female. The patient began to experience vaginal bleeding. The patient states it was like her normal period; however, she has been postmenopausal for several years. The patient complains of cramping with the bleeding. The patient presented to [facility]. The patient is admitted with post menopausal vaginal bleeding to rule out acute uterine carcinoma. Hematology/Oncology was consulted for Leukocytosis, Anemia and possible uterine carcinoma. REVIEW OF SYSTEMS: CONSTITUTIONAL: The patient denies weight loss or weight gain. The patient denies fevers or chills. HEENT: The patient denies ear or throat pain. The patient denies headache. CARDIOVASCULAR: The patient denies palpitations or chest pain. CHEST: The patient denies wheeze or shortness of breath. ABDOMEN: The patient denies nausea, vomiting, diarrhea, or constipation. GENITOURINARY: The patient complains of vaginal bleeding as above. The patient denies dysuria or increased frequency of urination. NEUROMUSCULAR: The patient denies seizures or generalized weakness. PAST MEDICAL HISTORY: Type 2 diabetes, Hypercholesterolemia. PAST SURGICAL HISTORY: The patient denies. CURRENT MEDICATIONS: 1. Aspirin 81 mg one tablet p.o. daily. 2. Lipitor 10 mg p.o. daily. 3. Carvedilol 3.125 mg p.o. twice daily. 4. Plavix 75 mg p.o. daily. 5. Gabapentin 300 mg p.o. at nightly. 6. Glipizide 5 mg p.o. twice daily. 7. Lisinopril 2.5 mg p.o. daily. 8. Metformin 1000 mg p.o. twice daily. 9. Zantac 150 mg p.o. daily. ALLERGIES: No known drug allergies. SOCIAL HISTORY: The patient is single and lives alone. The patient denies tobacco or alcohol use. PHYSICAL EXAMINATION: VITAL SIGNS: Temperature 97.3, respirations 18, pulse 63, and blood pressure 115/43. GENERAL: The patient is a well-developed and well-nourished female, in no apparent distress. HEENT: Eyes - pupils are equal and responsive to light and accommodation. Extraocular movements are intact. NECK: Supple without lymphadenopathy. CHEST: Lungs are clear to auscultation bilaterally without wheezes or rales. CARDIOVASCULAR: Regular rhythm and rate. S1 and S2 are normal without murmurs , rubs, or gallops. ABDOMEN: Soft, nontender, and nondistended. Positive bowel sounds. No evidence of hepatosplenomegaly. Currently, no rebound or guarding noted. EXTREMITIES: Negative for clubbing, cyanosis, or edema. RECTAL/GENITAL: Refused. NEUROLOGIC: Cranial nerves II through XII are grossly intact without focal deficits. Motor strength is 5/5 bilaterally. Deep tendon reflexes are 2+ plantar. LABORATORY STUDIES: WBC 15.0, hemoglobin 8.6, hematocrit 25.3, and platelets 284,000 ASSESSMENT: # Endometrial thickening, concerning for infection or neoplasm given findings on recent CT scan, with Postmenopausal vaginal bleeding/endometrial hyperplasia, A SOLUTION PROFESSIONAL consultation has been obtained --> appreciate FIRE PROTECTION ENGINEER recs ==> need tissue pathology --> imaging has been reviewed # Anemia of chronic disease (or of iron deficiency) due to underlying chronic medical issues, multifactorial --> Anemia workup has been ordered --> No evidence of hemolysis is noted, peripheral smear has been reviewed. --> Hgb goal >7. Transfuse prn. --> Epogen or iron at this time is not particularly indicated --> Medications have been reviewed # Leukocytosis/Elevated white blood cell count, unspecified likely related to underlying stress reaction, smoking, or underlying infection (especially if bandemia is noted) --> have reviewed peripheral smear and bandemia/neutrophilia noted --> continue antibiotics if they have been started by ID team --> monitor for resolution # Pelvic pain. # Diabetes type 2, regular insulin sliding scale has been instituted. # Hypercholesterolemia, Continue Lipitor as above The timing of this note does not necessarily reflect the time of the patient was seen. Greatly appreciate consultation! Cruzito Willson MD Jul 29, 2018 23:59
[2018-07-30] VITALS: BP 109/54
--- NOTE | 2018-07-30 01:46 | Consultation ---
DATE OF CONSULTATION: 07/29/2018 CONSULTING PHYSICIAN: Adeline Rocha M.D. REASON FOR CONSULTATION: Skin check and also pressure ulcer prevention. HISTORY OF PRESENT ILLNESS: This is a 73-year-old woman with history of diabetes and high blood pressure who was admitted for vaginal bleeding. PAST MEDICAL HISTORY: Diabetes, hypertension. MEDICATIONS: Gabapentin, NovoLog, fluocinonide, Coreg, metformin, levofloxacin, Zofran, Tylenol, and Pepcid. REVIEW OF SYSTEMS: Obtained through EMR and also speaking with the patient.CONSTITUTIONAL: The patient denies any recent weight loss or weight gain. HEENT: The patient has no ear or throat pain, or headache. CARDIOVASCULAR: The patient denies any chest pain. CHEST: The patient denies any shortness of breath. ABDOMEN: The patient denies any abdominal pain. GENITOURINARY: The patient reports vaginal bleeding. PHYSICAL EXAMINATION: VITAL SIGNS: The patient is afebrile with stable vitals. GENERAL: She is alert, in no acute distress. EYES: Bilateral extraocular movements intact. MUSCULOSKELETAL: The patient has normal strength and normal range of motion. SKIN: The patient has very thin skin, also very dry skin. She has full sensation in her hands and her feet. For her nails, she has thickened toenails and thickened fingernails and her fingers were also extremely long. ASSESSMENT: This is a 73-year-old woman with diabetes who is admitted for vaginal bleeding. RECOMMENDATIONS: 1. When I saw the patient, her blood sugar levels were quite high. Recommend diabetic control. 2. The patient does have very thin skin. I recommend protective sleeves to prevent her from having any injuries or abrasions on her forearms especially since she is diabetic. If also she stays in the hospital for an extended period of time, consider Podiatry consult for foot care and also recommend weekly skin checks. Adeline Rocha M.D. DR: KAROL JOB#: [id number] CC: OLIVER
[2018-07-30 04:00] VITALS: BP 116/54
[2018-07-30] MEDS: NovoLOG Insulin Flexpen SUBQ SCH ×4 (06:05→20:32)
--- NOTE | 2018-07-30 06:07 | NUR ---
Nurse's notes: blood glucose levels noted; insulin coverage per SS given. Restraints discontinued as patient became more restless; is ambulatory; medicated for agitation as ordered; able to sleep thereafter; kept clean and dry.
[2018-07-30 06:44] LABS: HEMATOCRIT 21.4 % (37.0-47.0); HEMOGLOBIN 7.1 G/DL (12.0-16.0); MEAN CORPUSCULAR VOLUME 88 FL (80-99); PLATELET COUNT 230 K/UL (150-450); RED BLOOD COUNT 2.42 M/UL (4.20-5.40); RED CELL DISTRIBUTION WIDTH 13.2 % (11.6-14.8); WHITE BLOOD COUNT 6.7 K/UL (4.8-10.8)
[2018-07-30 06:47] LABS: ANION GAP 9 mmol/L (5-15); BLOOD UREA NITROGEN 25 mg/dL (7-18); CALCIUM 8.2 MG/DL (8.5-10.1); CARBON DIOXIDE 23 MMOL/L (21-32); CHLORIDE 107 MMOL/L (98-107); CREATININE 1.4 MG/DL (0.55-1.30); PHOSPHORUS 4.1 MG/DL (2.5-4.9); POTASSIUM 4.1 MMOL/L (3.5-5.1); SODIUM 139 MMOL/L (136-145)
[2018-07-30 07:26] LABS: LACTATE DEHYDROGENASE 150 U/L (81-234)
--- NOTE | 2018-07-30 07:44 | NUR ---
NURSE NOTES: Patient confused, restless; on room air, no sign of distress and shortness of breath; IV LFA fluid running; restrained removed by the PM nurseSanjana; patine refused SCD; Bed at lowest position, side rails up, breaks engaged, bed alarm on; will monitor blood sugar as scheduled; call light within reach, will keep monitoring.
[2018-07-30 07:51] LABS: % IRON SATURATION 15 % (15-50); IRON 39 ug/dL (50-175); TOTAL IRON BINDING CAPACITY 259 ug/dL (250-450)
[2018-07-30 08:00] VITALS: BP 118/52
[2018-07-30] MEDS: Fluocinonide 15gm Cream TOPIC SCH (09:42)
[2018-07-30] MEDS: Piperacillin/Tazobactam 3.375 GM in NS 110 ML IVPB SCH ×2 (09:58→20:33)
--- NOTE | 2018-07-30 10:17 | NUR ---
NURSE NOTES: Patient's Hgb 7.1, Hct 21.4. MD Mckeon notified. Waiting for order.
--- NOTE | 2018-07-30 10:20 | NUR ---
NURSE NOTES: Patient's Hgb 7.1, Hct 21.4. MD Miller notified. Waiting for order
[2018-07-30 12:00] VITALS: BP 107/59
[2018-07-30 16:00] VITALS: BP 131/69
--- NOTE | 2018-07-30 16:53 | NUR ---
CASE MANAGEMENT: REVIEW SI: ANEMIA . VAGINAL BLEEDING . UTERINE TUMOR . R/O ACUTE UTERINE CARCINOMA . T 98.8 HR 76 RR 18 BP 107/59 SAT 96% ROOM AIR H/H 7.1/21.4 BUN 25 CR 1.4 TUMOR MARKERS PENDING IS: ZOSYN IV Q12HR MORPHINE IV Q4HR PRN MED/SURG STATUS DCP: PATIENT IS FROM HOME PLAN: LUNG GUN OPERATOR AND ONCOLOGY EVALUATION
--- NOTE | 2018-07-30 17:45 | Internal Med Progress Note ---
Subjective Physician Name Rhys Yousif Attending Physician Ari Mckeon MD Current Medications Medications (Trade) Dose Ordered Sig/Kannan Route PRN Reason Start Time Stop Time Status Last Admin Dose Admin Acetaminophen (Tylenol) 650 mg Q6H PRN ORAL Mild Pain/Temp > 100.5 07/29/18 07:00 08/28/18 06:59 Acetaminophen/ Hydrocodone Bitart ([place] 5/325) 1 tab Q6H PRN ORAL Moderate Pain (Pain Scale 4-6) 07/29/18 07:00 08/05/18 06:59 Carvedilol (Coreg) 3.125 mg EVERY 12 HOURS ORAL 07/29/18 09:00 08/28/18 08:59 07/30/18 09:41 Dextrose (Dextrose 50%) 25 ml Q30M PRN IV Hypoglycemia 07/29/18 07:00 08/28/18 06:59 Dextrose (Dextrose 50%) 50 ml Q30M PRN IV Hypoglycemia 07/29/18 07:00 08/28/18 06:59 Famotidine (Pepcid) 20 mg DAILY ORAL 07/29/18 09:00 08/28/18 08:59 07/30/18 09:42 Fluocinonide (Lidex) 1 applic DAILY TOPIC 07/29/18 10:00 08/28/18 09:59 07/30/18 09:42 Gabapentin (Neurontin) 300 mg BEDTIME ORAL 07/29/18 21:00 08/28/18 20:59 07/29/18 21:45 Insulin Aspart (NovoLOG) BEFORE MEALS AND HS SUBQ 07/29/18 11:30 08/28/18 11:29 07/30/18 17:27 Lorazepam (Ativan 2mg/ml 1ml) 0.5 mg Q4H PRN IV For Anxiety 07/29/18 17:15 08/05/18 17:14 07/29/18 22:50 Morphine Sulfate (Morphine Sulfate) 2 mg Q4H PRN IVP Severe Pain (Pain Scale 7-10) 07/29/18 07:00 08/05/18 06:59 Ondansetron HCl (Zofran) 4 mg Q4H PRN IVP Nausea & Vomiting 07/29/18 07:00 08/28/18 06:59 Piperacillin Sod/ Tazobactam Sod 3.375 gm/Sodium Chloride 110 ml @ 27.5 mls/hr Q12HR IVPB 07/29/18 14:00 08/05/18 13:59 07/30/18 09:58 Sodium Chloride 1,000 ml @ 150 mls/hr Q6H40M IV 07/29/18 13:00 08/28/18 12:59 07/30/18 15:12 Allergies: Coded Allergies: NO KNOWN DRUG ALLERGIES (Verified Allergy, Unknown, 06/09/17) Objective Last Vital Signs Date Time Temp Pulse Resp B/P (MAP) Pulse Ox O2 Delivery O2 Flow Rate FiO2 07/30/18 16:00 98.8 76 18 131/69 (89) 96 07/30/18 09:00 Room Air Laboratory Tests Test 07/30/18 05:40 White Blood Count 6.7 K/UL (4.8-10.8) # Red Blood Count 2.42 M/UL (4.20-5.40) L Hemoglobin 7.1 G/DL (12.0-16.0) L Hematocrit 21.4 % (37.0-47.0) L Mean Corpuscular Volume 88 FL (80-99) Mean Corpuscular Hemoglobin 29.3 PG (27.0-31.0) Mean Corpuscular Hemoglobin Concent 33.1 G/DL (32.0-36.0) Red Cell Distribution Width 13.2 % (11.6-14.8) Platelet Count 230 K/UL (150-450) Mean Platelet Volume 7.1 FL (6.5-10.1) Neutrophils (%) (Auto) % (45.0-75.0) Lymphocytes (%) (Auto) % (20.0-45.0) Monocytes (%) (Auto) % (1.0-10.0) Eosinophils (%) (Auto) % (0.0-3.0) Basophils (%) (Auto) % (0.0-2.0) Differential Total Cells Counted 100 Neutrophils % (Manual) 59 % (45-75) Lymphocytes % (Manual) 35 % (20-45) Monocytes % (Manual) 3 % (1-10) Eosinophils % (Manual) 2 % (0-3) Basophils % (Manual) 1 % (0-2) Band Neutrophils 0 % (0-8) Platelet Estimate Adequate Platelet Morphology Normal Red Blood Cell Morphology Normal Erythrocyte Sedimentation Rate 68 MM/HR (0-30) H Reticulocyte Count 0.4 % (0.0-2.0) Prothrombin Time 10.7 SEC (9.30-11.50) Prothromb Time International Ratio 1.0 (0.9-1.1) Activated Partial Thromboplast Time 23 SEC (23-33) Sodium Level 139 MMOL/L (136-145) Potassium Level 4.1 MMOL/L (3.5-5.1) Chloride Level 107 MMOL/L (98-107) Carbon Dioxide Level 23 MMOL/L (21-32) Anion Gap 9 mmol/L (5-15) Blood Urea Nitrogen 25 mg/dL (7-18) H Creatinine 1.4 MG/DL (0.55-1.30) H Estimat Glomerular Filtration Rate mL/min (>60) Glucose Level 159 MG/DL (74-106) #H Calcium Level 8.2 MG/DL (8.5-10.1) L Phosphorus Level 4.1 MG/DL (2.5-4.9) Magnesium Level 2.1 MG/DL (1.8-2.4) Iron Level 39 ug/dL (50-175) L Total Iron Binding Capacity 259 ug/dL (250-450) Percent Iron Saturation 15 % (15-50) Unsaturated Iron Binding 220 ug/dL (112-346) Lactate Dehydrogenase 150 U/L (81-234) C-Reactive Protein, Quantitative 1.1 mg/dL (0.00-0.90) H Carcinoembryonic Antigen Pending Vitamin B12 Level 723 PG/ML (193-986) Folate 27.3 NG/ML (8.6-58.9) Microbiology Date/Time Source Procedure Growth Status 07/29/18 15:35 Urine,Clean Catch Urine Culture - Preliminary NO GROWTH Resulted Intake and Output 07/29/18 07/30/18 19:00 07:00 Intake Total 2050.0 ml Balance 2050.0 ml Intake Oral 240 ml IV Total 1810.0 ml # Voids 1 Objective PHYSICAL EXAMINATION: GENERAL: The patient is a well-developed and well-nourished female, in no apparent distress. HEENT: Eyes - pupils are equal and responsive to light and accommodation. Extraocular movements are intact. NECK: Supple without lymphadenopathy. CHEST: Lungs are clear to auscultation bilaterally without wheezes or rales. CARDIOVASCULAR: Regular rhythm and rate. S1 and S2 are normal without murmurs, rubs, or gallops. ABDOMEN: Soft, nontender, and nondistended. Positive bowel sounds. No evidence of hepatosplenomegaly. Currently, no rebound or guarding noted. EXTREMITIES: Negative for clubbing, cyanosis, or edema. RECTAL/GENITAL: Refused. NEUROLOGIC: Cranial nerves II through XII are grossly intact without focal deficits. Motor strength is 5/5 bilaterally. Deep tendon reflexes are 2+ Assessment/Plan Assessment/Plan ASSESSMENT: This is a 73-year-old female. 1. Postmenopausal vaginal bleeding. 2. Probable endometrial cancer versus endometrial hyperplasia. 3. Pelvic pain. 4. Diabetes type 2. 5. Hypercholesterolemia. TREATMENT: 1. Postmenopausal vaginal bleeding/endometrial hyperplasia. A JUMPBASTING FACING BASTER consultation has been obtained with Dr. Torrez. We will follow recommendations of JUMPBASTING FACING BASTER. The patient will require an endometrial biopsy during this hospitalization. An Oncology consultation with Dr. Cruzito Willson. 2. Diabetes type 2. Regular insulin sliding scale has been instituted. 3. Hypercholesterolemia. Continue Lipitor as above. 4. Hypertension. Continue Coreg as above. Rhys Yousif MD Jul 30, 2018 17:45
--- NOTE | 2018-07-30 19:40 | NUR ---
HAND-OFF: Report given to MARYANNE Acosta.
--- NOTE | 2018-07-30 19:56 | NUR ---
NURSE'S NOTES: good amount of bloody vaginal discharge noted during urination. will continue to monitor closely.
[2018-07-30 20:05] VITALS: BP 110/64
[2018-07-30] MEDS ORDERED: Tubing IV Secondary IV ONE (20:08)
[2018-07-30] MEDS: LORazepam Inj 2mg/ml 1ml IV PRN (23:09)
[2018-07-31] VITALS: BP 142/62
[2018-07-31 04:00] VITALS: BP 125/64
[2018-07-31] MEDS: NovoLOG Insulin Flexpen SUBQ SCH ×4 (06:31→21:51)
--- NOTE | 2018-07-31 06:39 | NUR ---
Nurse's notes: no significant changes noted as of this time except for 2 more episodes of bloody vaginal discharge during urination; remains alert and oriented with periods of confusion and forgetfulness; VSS
--- NOTE | 2018-07-31 07:30 | NUR ---
NURSE NOTES: Received patient in bed, resting and alert to name. Patient denies pain. No signs of respiratory distress, patient in room air. IV fluids running. IV patent. Bed in lowest position, bed alarm on and call light within reach. Will continue to monitor.
[2018-07-31 08:00] VITALS: BP 136/64
[2018-07-31] MEDS: Piperacillin/Tazobactam 3.375 GM in NS 110 ML IVPB SCH (08:28)
[2018-07-31] MEDS: Fluocinonide 15gm Cream TOPIC SCH (08:33)
[2018-07-31 10:29] LABS: ANION GAP 12 mmol/L (5-15); BLOOD UREA NITROGEN 24 mg/dL (7-18); CALCIUM 7.8 MG/DL (8.5-10.1); CARBON DIOXIDE 19 MMOL/L (21-32); CHLORIDE 108 MMOL/L (98-107); CREATININE 1.3 MG/DL (0.55-1.30); HEMATOCRIT 21.2 % (37.0-47.0); MEAN CORPUSCULAR VOLUME 90 FL (80-99); PLATELET COUNT 227 K/UL (150-450); POTASSIUM 4.1 MMOL/L (3.5-5.1); RED BLOOD COUNT 2.36 M/UL (4.20-5.40); RED CELL DISTRIBUTION WIDTH 13.2 % (11.6-14.8); SODIUM 139 MMOL/L (136-145); WHITE BLOOD COUNT 6.6 K/UL (4.8-10.8)
[2018-07-31 10:31] LABS: HEMOGLOBIN 6.8 G/DL (12.0-16.0)
[2018-07-31 12:00] VITALS: BP 122/65
[2018-07-31] MEDS: LORazepam Inj 2mg/ml 1ml IV PRN ×2 (13:21→23:01)
--- NOTE | 2018-07-31 15:29 | Internal Med Progress Note ---
Subjective Date of Service: Jul 31, 2018 Physician Name Rhys Yousif Attending Physician Ari Mckeon MD Current Medications Medications (Trade) Dose Ordered Sig/Kannan Route PRN Reason Start Time Stop Time Status Last Admin Dose Admin Acetaminophen (Tylenol) 650 mg Q6H PRN ORAL Mild Pain/Temp > 100.5 07/29/18 07:00 08/28/18 06:59 Acetaminophen/ Hydrocodone Bitart ([place] 5/325) 1 tab Q6H PRN ORAL Moderate Pain (Pain Scale 4-6) 07/29/18 07:00 08/05/18 06:59 Carvedilol (Coreg) 3.125 mg EVERY 12 HOURS ORAL 07/29/18 09:00 08/28/18 08:59 07/31/18 08:31 Dextrose (Dextrose 50%) 25 ml Q30M PRN IV Hypoglycemia 07/29/18 07:00 08/28/18 06:59 Dextrose (Dextrose 50%) 50 ml Q30M PRN IV Hypoglycemia 07/29/18 07:00 08/28/18 06:59 Famotidine (Pepcid) 20 mg DAILY ORAL 07/29/18 09:00 08/28/18 08:59 07/31/18 08:30 Fluocinonide (Lidex) 1 applic DAILY TOPIC 07/29/18 10:00 08/28/18 09:59 07/31/18 08:33 Gabapentin (Neurontin) 300 mg BEDTIME ORAL 07/29/18 21:00 08/28/18 20:59 07/30/18 20:34 Insulin Aspart (NovoLOG) BEFORE MEALS AND HS SUBQ 07/29/18 11:30 08/28/18 11:29 07/31/18 11:55 Lorazepam (Ativan 2mg/ml 1ml) 0.5 mg Q4H PRN IV For Anxiety 07/29/18 17:15 08/05/18 17:14 07/31/18 13:21 Morphine Sulfate (Morphine Sulfate) 2 mg Q4H PRN IVP Severe Pain (Pain Scale 7-10) 07/29/18 07:00 08/05/18 06:59 Ondansetron HCl (Zofran) 4 mg Q4H PRN IVP Nausea & Vomiting 07/29/18 07:00 08/28/18 06:59 Piperacillin Sod/ Tazobactam Sod 3.375 gm/Sodium Chloride 110 ml @ 27.5 mls/hr Q8H IVPB 07/31/18 17:00 08/07/18 16:59 Sodium Chloride 1,000 ml @ 150 mls/hr Q6H40M IV 07/29/18 13:00 08/28/18 12:59 07/31/18 11:55 Allergies: Coded Allergies: NO KNOWN DRUG ALLERGIES (Verified Allergy, Unknown, 06/09/17) ROS Limited/Unobtainable: No Constitutional: Reports: no symptoms HEENT: Reports: no symptoms Cardiovascular: Reports: no symptoms Respiratory: Reports: no symptoms Gastrointestinal/Abdominal: Reports: no symptoms Genitourinary: Reports: other - vaginal bleeding Neurologic/Psychiatric: Reports: no symptoms Subjective 73 YO F admitted with post menopausal vaginal bleeding. Now severe anemia. Cover for Int Med-Dr Mckeon. Await ROCK WOOL INSULATOR consult. Objective Last Vital Signs Date Time Temp Pulse Resp B/P (MAP) Pulse Ox O2 Delivery O2 Flow Rate FiO2 07/31/18 12:00 97.9 71 20 122/65 (84) 95 07/31/18 09:00 Room Air Laboratory Tests Test 07/31/18 07:45 White Blood Count 6.6 K/UL (4.8-10.8) Red Blood Count 2.36 M/UL (4.20-5.40) L Hemoglobin 6.8 G/DL (12.0-16.0) *L Hematocrit 21.2 % (37.0-47.0) L Mean Corpuscular Volume 90 FL (80-99) Mean Corpuscular Hemoglobin 29.0 PG (27.0-31.0) Mean Corpuscular Hemoglobin Concent 32.2 G/DL (32.0-36.0) Red Cell Distribution Width 13.2 % (11.6-14.8) Platelet Count 227 K/UL (150-450) Mean Platelet Volume 6.7 FL (6.5-10.1) Neutrophils (%) (Auto) % (45.0-75.0) Lymphocytes (%) (Auto) % (20.0-45.0) Monocytes (%) (Auto) % (1.0-10.0) Eosinophils (%) (Auto) % (0.0-3.0) Basophils (%) (Auto) % (0.0-2.0) Differential Total Cells Counted 100 Neutrophils % (Manual) 48 % (45-75) Lymphocytes % (Manual) 36 % (20-45) Monocytes % (Manual) 11 % (1-10) H Eosinophils % (Manual) 5 % (0-3) H Basophils % (Manual) 0 % (0-2) Band Neutrophils 0 % (0-8) Platelet Estimate Adequate Platelet Morphology Normal Hypochromasia 1+ Sodium Level 139 MMOL/L (136-145) Potassium Level 4.1 MMOL/L (3.5-5.1) Chloride Level 108 MMOL/L (98-107) H Carbon Dioxide Level 19 MMOL/L (21-32) L Anion Gap 12 mmol/L (5-15) Blood Urea Nitrogen 24 mg/dL (7-18) H Creatinine 1.3 MG/DL (0.55-1.30) Estimat Glomerular Filtration Rate mL/min (>60) Glucose Level 182 MG/DL (74-106) H Calcium Level 7.8 MG/DL (8.5-10.1) L Ferritin 13 NG/ML (8-388) Microbiology Date/Time Source Procedure Growth Status 07/29/18 15:35 Urine,Clean Catch Urine Culture - Preliminary Mixed Gram Positive Organism Resulted Intake and Output 07/30/18 07/31/18 19:00 07:00 Intake Total 1600 ml 2270.0 ml Balance 1600 ml 2270.0 ml Intake Oral 840 ml IV Total 1050 ml 1430.0 ml Other 550 ml # Voids 3 Objective PHYSICAL EXAMINATION: GENERAL: The patient is a well-developed and well-nourished female, in no apparent distress. HEENT: Eyes - pupils are equal and responsive to light and accommodation. Extraocular movements are intact. NECK: Supple without lymphadenopathy. CHEST: Lungs are clear to auscultation bilaterally without wheezes or rales. CARDIOVASCULAR: Regular rhythm and rate. S1 and S2 are normal without murmurs, rubs, or gallops. ABDOMEN: Soft, nontender, and nondistended. Positive bowel sounds. No evidence of hepatosplenomegaly. Currently, no rebound or guarding noted. EXTREMITIES: Negative for clubbing, cyanosis, or edema. RECTAL/GENITAL: Refused. NEUROLOGIC: Cranial nerves II through XII are grossly intact without focal deficits. Motor strength is 5/5 bilaterally. Deep tendon reflexes are 2+ Assessment/Plan Assessment/Plan ASSESSMENT: This is a 73-year-old female. 1. Postmenopausal vaginal bleeding. 2. Probable endometrial cancer versus endometrial hyperplasia. 3. Pelvic pain. 4. Diabetes type 2. 5. Hypercholesterolemia. 6. Severe anemia-blood loss 7. Agitation TREATMENT: 1. Postmenopausal vaginal bleeding/endometrial hyperplasia. A ROCK WOOL INSULATOR consultation has been obtained with Dr. Torrez. We will follow recommendations of ROCK WOOL INSULATOR. The patient will require an endometrial biopsy during this hospitalization. An Oncology consultation with Dr. Cruzito Willson. 2. Diabetes type 2. Regular insulin sliding scale has been instituted. 3. Hypercholesterolemia. Continue Lipitor as above. 4. Hypertension. Continue Coreg as above. 5. Transfuse 1 unit PRBC per heme/onc-Dr Willson 6. Ativan PRN; await psych consult Rhys Yousif MD Jul 31, 2018 15:29
--- NOTE | 2018-07-31 15:30 | NUR ---
NURSE NOTES: Noted small lice bug on patients arm, checked head and noted multiple active lice. Patient placed in precautions, called primary MD for orders. Patient refusing to take cap off, refusing to sit back in bed and sitting in chair. Patient confused, hard to redirect. Will continue to monitor.
[2018-07-31 16:00] VITALS: BP 140/70
[2018-07-31] MEDS ORDERED: Lice Treatment Shampoo 4oz Bottle TOPIC SCH (16:00)
--- NOTE | 2018-07-31 16:30 | NUR ---
NURSE NOTES: Received lice treatment shampoo from pharmacy; gathered supplies to wash hair but patient is refusing at this time, stating to do later. Family at bedside and asked if treatment can be put on later. Attempting to wash hair prior to beginning blood transfusion. Patient requesting blood transfusion to be done first. Prioritizing blood transfusion at this time. Will attempt to wash hair later or endorse procedure.
--- NOTE | 2018-07-31 16:46 | NUR ---
ASSEMBLER WIRE MESH GATEVERSE WRITER SI: ANEMIA . VAGINAL BLEEDING . UTERINE TUMOR . R/O ACUTE UTERINE CARCINOMA . VS: BP 140/70, P 57, T 97.0, RR 16, SpO2 97 RBC 2.36, Hgb 6.8, Hct 21.2 IS:ZYPREXA PIPERACILLIN GABAPENTIN LORAZEPAM NOVOLOG LIDEX COREG NORCO MED/SURG STATUS
[2018-07-31] MEDS: Zoysn 3.37gm in NS 100ML IVPB SCH (17:00)
--- NOTE | 2018-07-31 17:06 | NUR ---
NURSE NOTES: IV abx Zosyn held; blood transfusion began at 1700 and patient refusing new IV access for abx. Attempted to start line but patient refused. MD made aware. Patient received morning dose of Zosyn before being discontinued to change to q8hr.
--- NOTE | 2018-07-31 19:30 | NUR ---
HAND-OFF: Report given to MARYANNE Berrios. Endorsed lice treatment to be given at later time. Blood transfusion complete.
--- NOTE | 2018-07-31 20:00 | NUR ---
NURSE NOTES: Received patient awake sitting in chair, family at the bedside.
--- NOTE | 2018-07-31 22:00 | NUR ---
NURSE NOTES: Addendum: 07/31/18 at 2343 by Agustina Wagoner RN Patient combative, pacing back and forth in room and nurse's station, throwing belongings on the ground, pulled IV out. Called Dr Mckeon for restraint order, order given and carried out. IV reinserted, wrapped in kerlix. Will monitor closely.
[2018-07-31] MEDS: HYDROcodone/Acetamin 5/325 tab ORAL PRN (22:24)
--- NOTE | 2018-07-31 23:11 | General Progress Note ---
Assessment/Plan Assessment/Plan ASSESSMENT: # Endometrial thickening, concerning for infection or neoplasm given findings on recent CT scan, with Postmenopausal vaginal bleeding/endometrial hyperplasia, A ASSEMBLER BILLIARD TABLE consultation has been obtained --> appreciate LOCAL DRIVER recs --> need tissue pathology --> imaging has been reviewed # Anemia of iron deficiency --> Anemia workup has been reviewed, Ferritin 13 --> No evidence of hemolysis is noted, peripheral smear has been reviewed. --> Hgb goal >7. Transfuse prn. --> Medications have been reviewed --> HGB trend: 8--> 7->6.8--> # Leukocytosis/Elevated white blood cell count, unspecified likely related to underlying stress reaction, smoking, or underlying infection (especially if bandemia is noted) --> have reviewed peripheral smear and bandemia/neutrophilia noted --> continue antibiotics if they have been started by ID team --> monitor for resolution # Pelvic pain. # Diabetes type 2, regular insulin sliding scale has been instituted. # Hypercholesterolemia, Continue Lipitor as above The timing of this note does not necessarily reflect the time of the patient was seen. Greatly appreciate consultation! Subjective Constitutional: Denies: no symptoms, chills, diaphoresis, fever, malaise, weakness, other HEENT: Denies: no symptoms, eye pain, blurred vision, tearing, double vision, ear pain, ear discharge, nose pain, nose congestion, throat pain, throat swelling, mouth pain, mouth swelling, other Cardiovascular: Denies: no symptoms, chest pain, edema, irregular heart rate, lightheadedness, palpitations, syncope, other Respiratory: Denies: no symptoms, cough, orthopnea, shortness of breath, SOB with excertion, SOB at rest, sputum, stridor, wheezing, other Gastrointestinal/Abdominal: Denies: no symptoms, abdomen distended, abdominal pain, black stools, tarry stools, blood in stool, constipated, diarrhea, difficulty swallowing, nausea, poor appetite, poor fluid intake, rectal bleeding , vomiting, other Genitourinary: Denies: no symptoms, burning, discharge, frequency, flank pain, hematuria, incontinence, pain, urgency, other Neurologic/Psychiatric: Denies: no symptoms, anxiety, depressed, emotional problems, headache, numbness, paresthesia, pre-existing deficit, seizure, tingling, tremors, weakness, other Hematologic/Lymphatic: Denies: no symptoms, anemia, easy bleeding, easy bruising, other Allergies: Coded Allergies: NO KNOWN DRUG ALLERGIES (Verified Allergy, Unknown, 06/09/17) Subjective 07/31: Seen by bedside, hgb 6.8, will receive prbc, Awaiting ASSEMBLER BILLIARD TABLE consult. Objective Last 24 Hour Vital Signs Date Time Temp Pulse Resp B/P (MAP) Pulse Ox O2 Delivery O2 Flow Rate FiO2 07/31/18 21:18 70 140/70 07/31/18 16:00 97.7 70 18 140/70 (93) 94 07/31/18 12:00 97.9 71 20 122/65 (84) 95 07/31/18 09:00 Room Air 07/31/18 08:31 74 134/64 07/31/18 08:00 98.8 74 22 136/64 (88) 100 07/31/18 04:00 98.3 80 20 125/64 (84) 99 07/31/18 00:00 97.9 74 18 142/62 (88) 97 Intake and Output 07/30/18 07/31/18 19:00 07:00 Intake Total 1600 ml 2270.0 ml Balance 1600 ml 2270.0 ml Intake Oral 840 ml IV Total 1050 ml 1430.0 ml Other 550 ml # Voids 3 Laboratory Tests 07/31/18 07:45: White Blood Count 6.6, Red Blood Count 2.36L, Hemoglobin 6.8*L, Hematocrit 21.2L , Mean Corpuscular Volume 90, Mean Corpuscular Hemoglobin 29.0, Mean Corpuscular Hemoglobin Concent 32.2, Red Cell Distribution Width 13.2, Platelet Count 227, Mean Platelet Volume 6.7, Neutrophils (%) (Auto) , Lymphocytes (%) ( Auto) , Monocytes (%) (Auto) , Eosinophils (%) (Auto) , Basophils (%) (Auto) , Differential Total Cells Counted 100, Neutrophils % (Manual) 48, Lymphocytes % ( Manual) 36, Monocytes % (Manual) 11H, Eosinophils % (Manual) 5H, Basophils % ( Manual) 0, Band Neutrophils 0, Platelet Estimate Adequate, Platelet Morphology Normal, Hypochromasia 1+, Sodium Level 139, Potassium Level 4.1, Chloride Level 108H, Carbon Dioxide Level 19L, Anion Gap 12, Blood Urea Nitrogen 24H, Creatinine 1.3, Estimat Glomerular Filtration Rate , Glucose Level 182H, Calcium Level 7.8L, Ferritin 13 Height (Feet): 5 Height (Inches): 0.00 Weight (Pounds): 148 Objective PHYSICAL EXAMINATION: VITAL SIGNS: Reviewed GENERAL: The patient is a well-developed and well-nourished female, in no apparent distress. HEENT: Eyes - pupils are equal and responsive to light and accommodation. Extraocular movements are intact. NECK: Supple without lymphadenopathy. CHEST: Lungs are clear to auscultation bilaterally without wheezes or rales. CARDIOVASCULAR: Regular rhythm and rate. S1 and S2 are normal without murmurs , rubs, or gallops. ABDOMEN: Soft, nontender, and nondistended. Positive bowel sounds. No evidence of hepatosplenomegaly. Currently, no rebound or guarding noted. EXTREMITIES: Negative for clubbing, cyanosis, or edema. NEUROLOGIC: Cranial nerves II through XII are grossly intact without focal deficits. Motor strength is 5/5 bilaterally. Deep tendon reflexes are 2+ plantar. Cruzito Willson MD Jul 31, 2018 23:11
--- NOTE | 2018-07-31 23:49 | Consultation ---
History of Present Illness General Chief Complaint: Vaginal Present Illness HPI 73-year-old female, presents with a chief complaint of vaginal bleeding. the pt is very disheveled and is confused. the pt is agitated and unable to provide hx the pt is attempting to pull out the iv access the pt is yelling. Allergies: Coded Allergies: NO KNOWN DRUG ALLERGIES (Verified Allergy, Unknown, 06/09/17) Medication History Scheduled Aspirin* (Aspirin*), 81 MG ORAL DAILY, (Reported) Carvedilol* (Carvedilol*), 3.125 MG ORAL EVERY 12 HOURS, (Reported) Clopidogrel Bisulfate* (Plavix*), 75 MG ORAL DAILY, (Reported) Gabapentin* (Gabapentin*), 300 MG ORAL BEDTIME, (Reported) Lisinopril* (Lisinopril*), 2.5 MG ORAL DAILY, (Reported) Metformin Hcl* (Metformin Hcl*), 500 MG ORAL TWICE A DAY, (Reported) Ranitidine Hcl* (Zantac*), 150 MG ORAL DAILY, (Reported) Scheduled PRN Ibuprofen* (Motrin*), 400 MG ORAL Q6H PRN for For Pain, (Reported) Miscellaneous Medications Fluocinonide/Emollient (Fluocinonide-E 0.05% Cream), 15 GM TP, (Reported) Discontinued Medications Acetaminophen With Codeine (T#3) (Tylenol #3 Tab*), 1 TAB ORAL Q6H PRN for For Pain Discontinued Reason: Pt stopped taking med Atorvastatin Calcium* (Lipitor*), 10 MG ORAL BEDTIME Discontinued Reason: Pt stopped taking med Glipizide* (Glucotrol Xl*), 1 TAB PO BID, (Reported) Discontinued Reason: Pt stopped taking med Hydrocodone Bit/Acetaminophen 5-325* ([place] 5-325*), 1 TAB ORAL Q6H PRN for For Pain Discontinued Reason: Pt stopped taking med Metformin Hcl (Glucophage), 1,000 MG ORAL DAILY, (Reported) Discontinued Reason: Pt stopped taking med Nitrofurantoin Monohyd/M-Cryst* (Macrobid 100 Mg*), 100 MG ORAL EVERY 12 HOURS Discontinued Reason: Pt stopped taking med No Known Medications* (NKM - No Known Medications*), 0 ., (Reported) Discontinued Reason: Pt stopped taking med Thiamine Hcl (Vitamin B1*), 100 MG ORAL DAILY Discontinued Reason: Pt stopped taking med [metformin], 1 TAB PO BID, (Reported) Discontinued Reason: Pt stopped taking med [unk HTN pill], (Reported) Discontinued Reason: Pt stopped taking med Patient History Limited by: medical condition History Provided By: Patient, Medical Record, PMD Healthcare decision maker Resuscitation status Full Code Advanced Directive on File No Past Medical/Surgical History Past Medical/Surgical History: (1) Acute metabolic encephalopathy (2) Diabetes mellitus (3) Hypertension, uncontrolled (4) Hypercholesterolemia (5) Alcohol dependence (6) Incontinence (7) Abnormal vaginal bleeding (8) Hyperglycemia due to type 2 diabetes mellitus (9) UTI (urinary tract infection) (10) Anemia (11) Uterine malignancy Review of Systems Psychiatric: Reports: prior hx, anxiety, depressed feelings, emotional problems , hallucinations Physical Exam General Appearance: alert, confused, agitated Last 24 Hour Vital Signs Date Time Temp Pulse Resp B/P (MAP) Pulse Ox O2 Delivery O2 Flow Rate FiO2 07/31/18 21:18 70 140/70 07/31/18 21:00 Room Air 07/31/18 16:00 97.7 70 18 140/70 (93) 94 07/31/18 12:00 97.9 71 20 122/65 (84) 95 07/31/18 09:00 Room Air 07/31/18 08:31 74 134/64 07/31/18 08:00 98.8 74 22 136/64 (88) 100 07/31/18 04:00 98.3 80 20 125/64 (84) 99 07/31/18 00:00 97.9 74 18 142/62 (88) 97 Intake and Output 07/30/18 07/31/18 19:00 07:00 Intake Total 1600 ml 2270.0 ml Balance 1600 ml 2270.0 ml Intake Oral 840 ml IV Total 1050 ml 1430.0 ml Other 550 ml # Voids 3 Laboratory Tests Test 07/31/18 07:45 White Blood Count 6.6 K/UL (4.8-10.8) Red Blood Count 2.36 M/UL (4.20-5.40) L Hemoglobin 6.8 G/DL (12.0-16.0) *L Hematocrit 21.2 % (37.0-47.0) L Mean Corpuscular Volume 90 FL (80-99) Mean Corpuscular Hemoglobin 29.0 PG (27.0-31.0) Mean Corpuscular Hemoglobin Concent 32.2 G/DL (32.0-36.0) Red Cell Distribution Width 13.2 % (11.6-14.8) Platelet Count 227 K/UL (150-450) Mean Platelet Volume 6.7 FL (6.5-10.1) Neutrophils (%) (Auto) % (45.0-75.0) Lymphocytes (%) (Auto) % (20.0-45.0) Monocytes (%) (Auto) % (1.0-10.0) Eosinophils (%) (Auto) % (0.0-3.0) Basophils (%) (Auto) % (0.0-2.0) Differential Total Cells Counted 100 Neutrophils % (Manual) 48 % (45-75) Lymphocytes % (Manual) 36 % (20-45) Monocytes % (Manual) 11 % (1-10) H Eosinophils % (Manual) 5 % (0-3) H Basophils % (Manual) 0 % (0-2) Band Neutrophils 0 % (0-8) Platelet Estimate Adequate Platelet Morphology Normal Hypochromasia 1+ Sodium Level 139 MMOL/L (136-145) Potassium Level 4.1 MMOL/L (3.5-5.1) Chloride Level 108 MMOL/L (98-107) H Carbon Dioxide Level 19 MMOL/L (21-32) L Anion Gap 12 mmol/L (5-15) Blood Urea Nitrogen 24 mg/dL (7-18) H Creatinine 1.3 MG/DL (0.55-1.30) Estimat Glomerular Filtration Rate mL/min (>60) Glucose Level 182 MG/DL (74-106) H Calcium Level 7.8 MG/DL (8.5-10.1) L Ferritin 13 NG/ML (8-388) Height (Feet): 5 Height (Inches): 0.00 Weight (Pounds): 148 Medications Current Medications Medications (Trade) Dose Ordered Sig/Kannan Route PRN Reason Start Time Stop Time Status Last Admin Dose Admin Acetaminophen (Tylenol) 650 mg Q6H PRN ORAL Mild Pain/Temp > 100.5 07/29/18 07:00 08/28/18 06:59 Acetaminophen/ Hydrocodone Bitart ([place] 5/325) 1 tab Q6H PRN ORAL Moderate Pain (Pain Scale 4-6) 07/29/18 07:00 08/05/18 06:59 07/31/18 22:24 Carvedilol (Coreg) 3.125 mg EVERY 12 HOURS ORAL 07/29/18 09:00 08/28/18 08:59 07/31/18 21:18 Dextrose (Dextrose 50%) 25 ml Q30M PRN IV Hypoglycemia 07/29/18 07:00 08/28/18 06:59 Dextrose (Dextrose 50%) 50 ml Q30M PRN IV Hypoglycemia 07/29/18 07:00 08/28/18 06:59 Famotidine (Pepcid) 20 mg DAILY ORAL 07/29/18 09:00 08/28/18 08:59 07/31/18 08:30 Fluocinonide (Lidex) 1 applic DAILY TOPIC 07/29/18 10:00 08/28/18 09:59 07/31/18 08:33 Gabapentin (Neurontin) 300 mg BEDTIME ORAL 07/29/18 21:00 08/28/18 20:59 07/31/18 21:18 Insulin Aspart (NovoLOG) BEFORE MEALS AND HS SUBQ 07/29/18 11:30 08/28/18 11:29 07/31/18 21:51 Lorazepam (Ativan 2mg/ml 1ml) 0.5 mg Q4H PRN IV For Anxiety 07/29/18 17:15 08/05/18 17:14 07/31/18 23:01 Morphine Sulfate (Morphine Sulfate) 2 mg Q4H PRN IVP Severe Pain (Pain Scale 7-10) 07/29/18 07:00 08/05/18 06:59 Ondansetron HCl (Zofran) 4 mg Q4H PRN IVP Nausea & Vomiting 07/29/18 07:00 08/28/18 06:59 Piperacillin Sod/ Tazobactam Sod 3.375 gm/Sodium Chloride 110 ml @ 27.5 mls/hr Q8H IVPB 07/31/18 17:00 08/07/18 16:59 Sodium Chloride 1,000 ml @ 150 mls/hr Q6H40M IV 07/29/18 13:00 08/28/18 12:59 07/31/18 11:55 Tip Frazier MD Jul 31, 2018 23:49
[2018-08-01] VITALS: BP 127/76
[2018-08-01] MEDS: Zoysn 3.37gm in NS 100ML IVPB SCH ×3 (00:33→17:45)
[2018-08-01 04:00] VITALS: BP 127/76
[2018-08-01] MEDS: NovoLOG Insulin Flexpen SUBQ SCH ×4 (05:34→20:45)
--- NOTE | 2018-08-01 06:15 | NUR ---
DENITA COYLE SAID PATIENT HAS SOME KIND OF CATHETER TO DRAIN FLUID, ENDORSED TO NURSE WHO WILL PASS THIS ON TO ICU
--- NOTE | 2018-08-01 07:11 | NUR ---
HAND-OFF: Report given to MARYANNE Rucker. Addendum: 08/01/18 at 0714 by Agustina Wagoner RN Hand off given to MARYANNE Angelo (not [place]).
[2018-08-01 07:13] LABS: BASOPHILS % (AUTO) 0.6 % (0.0-2.0); EOSINOPHILS % (AUTO) 9.5 % (0.0-3.0); HEMATOCRIT 23.8 % (37.0-47.0); LYMPHOCYTES % (AUTO) 35.1 % (20.0-45.0); MEAN CORPUSCULAR VOLUME 87 FL (80-99); MONOCYTES % (AUTO) 8.1 % (1.0-10.0); NEUTROPHILS % (AUTO) 46.8 % (45.0-75.0); PLATELET COUNT 214 K/UL (150-450); RED BLOOD COUNT 2.72 M/UL (4.20-5.40); RED CELL DISTRIBUTION WIDTH 13.2 % (11.6-14.8); WHITE BLOOD COUNT 5.7 K/UL (4.8-10.8)
[2018-08-01 07:32] LABS: ANION GAP 8 mmol/L (5-15); BLOOD UREA NITROGEN 17 mg/dL (7-18); CALCIUM 8.2 MG/DL (8.5-10.1); CARBON DIOXIDE 23 MMOL/L (21-32); CHLORIDE 108 MMOL/L (98-107); CREATININE 1.2 MG/DL (0.55-1.30); SODIUM 139 MMOL/L (136-145)
[2018-08-01 08:00] VITALS: BP 133/78
[2018-08-01] MEDS: Fluocinonide 15gm Cream TOPIC SCH (11:03)
[2018-08-01 12:00] VITALS: BP 149/69
--- NOTE | 2018-08-01 12:12 | General Progress Note ---
Assessment/Plan Problem List: (1) Acute metabolic encephalopathy ICD Codes: G93.41 - Metabolic encephalopathy SNOMED: 71201111, 632206265 (2) Alcohol dependence ICD Codes: F10.20 - Alcohol dependence, uncomplicated SNOMED: 02496600, 944701105 Assessment/Plan Zyprexa 5mg po tid Ativan prn cont restraints Subjective Neurologic/Psychiatric: Reports: anxiety, depressed Allergies: Coded Allergies: NO KNOWN DRUG ALLERGIES (Verified Allergy, Unknown, 06/09/17) Objective Last 24 Hour Vital Signs Date Time Temp Pulse Resp B/P (MAP) Pulse Ox O2 Delivery O2 Flow Rate FiO2 08/01/18 11:03 57 127/76 08/01/18 09:00 Room Air 08/01/18 08:00 97.6 63 17 133/78 (96) 97 08/01/18 04:00 97.0 57 16 127/76 (93) 97 08/01/18 00:00 97.0 57 16 127/76 (93) 97 07/31/18 21:18 70 140/70 07/31/18 21:00 Room Air 07/31/18 16:00 97.7 70 18 140/70 (93) 94 Intake and Output 07/31/18 08/01/18 19:00 07:00 Intake Total 800 ml 250 ml Balance 800 ml 250 ml Intake Oral 500 ml 250 ml IV Total 300 ml # Voids 4 2 # Bowel Movements 1 Laboratory Tests 08/01/18 04:00: Stool Occult Blood Negative 08/01/18 04:50: White Blood Count 5.7, Red Blood Count 2.72L, Hemoglobin 8.0L, Hematocrit 23.8L , Mean Corpuscular Volume 87, Mean Corpuscular Hemoglobin 29.5, Mean Corpuscular Hemoglobin Concent 33.8, Red Cell Distribution Width 13.2, Platelet Count 214, Mean Platelet Volume 6.7, Neutrophils (%) (Auto) 46.8, Lymphocytes (% ) (Auto) 35.1, Monocytes (%) (Auto) 8.1, Eosinophils (%) (Auto) 9.5H, Basophils (%) (Auto) 0.6, Sodium Level 139, Potassium Level 4.0, Chloride Level 108H, Carbon Dioxide Level 23, Anion Gap 8, Blood Urea Nitrogen 17, Creatinine 1.2, Estimat Glomerular Filtration Rate , Glucose Level 97, Calcium Level 8.2L Height (Feet): 5 Height (Inches): 0.00 Weight (Pounds): 148 General Appearance: alert, confused, agitated Neurologic: disoriented Tip Frazier MD Aug 01, 2018 12:12
[2018-08-01] MEDS: OLANZapine 2.5mg tab ORAL SCH ×2 (12:45→17:23)
--- NOTE | 2018-08-01 14:46 | Consultation ---
Consult Note Consult Note GYNECOLOGY CONSULT NOTE CC: Postmenopausal bleeding HPI: Patient is a 73yo with multiple medical comorbidities who was admitted for anemia likely secondary to heavy vaginal bleeding. The patient and her family are poor historians. She reports that her bleeding began over a week ago. It has been heavy, however she has no bleeding today. She denies any pelvic pain. She states that she had a previous episode of vaginal bleeding 4y ago. She had a pessary placed at that time by her Client Associate in [facility]. She has not followed up with her ANALYSIS DIRECTOR doctor since. PMH: 1. DM 2. HTN 3. Hx of UT November 2016 PSH: 1. x 1 2. Cardiac catheterization at time of UT Meds: 1. Clopidogrel 75mg 2. Lisinopril 2.5mg 3. Gabapentin 300mg 4. Ranitidine 150mg 5. Metformin 500mg 6. ASA 81mg 7. Carvedilol 3.125mg Allergies: NKDA OBHx: - x 5, C/S x 1 GYNHx: LMP 10-15y ago, although had bleeding 3-4y ago. Last Pap unknown. Hx of pelvic organ prolapse, pessary in place per imaging SocHx: Lives with daughter. Smokes and drinks. FamHx: Denies hx of cancers or CVA. Vitals: Tlast 97.9, BP 149/69, P 65, RR 18, O2 98% RA Exam: GEN: NAD HEENT: Head lice noted on exam, OP clear, poor dentition Neck: No gross thyromegaly CV: Reg rate Pulm: No increased work of breathing but breathing is wheezy Abd: Soft, NTND Pelvic: Internal exam deferred. No blood at perineum Ext: No calf TTP Labs: Labs Test 07/29/18 15:35 07/30/18 05:40 07/31/18 07:45 08/01/18 04:00 Urine Color Red Urine Appearance Slightly cloudy Urine pH 7 (4.5-8.0) Urine Specific [place] 1.005 (1.005-1.035) Urine Protein 3+ (NEGATIVE) Urine Glucose (UA) Negative (NEGATIVE) Urine Ketones Negative (NEGATIVE) Urine Blood 5+ (NEGATIVE) Urine Nitrite Negative (NEGATIVE) Urine Bilirubin Negative (NEGATIVE) Urine Urobilinogen Normal MG/DL (0.0-1.0) Urine Leukocyte Esterase 3+ (NEGATIVE) Urine RBC Tntc /HPF (0 - 2) Urine WBC Tntc /HPF (0 - 2) Urine Squamous Epithelial Cells Few /LPF (NONE/OCC) Urine Bacteria Many /HPF (NONE) Urine Eosinophils None seen (NONE SEEN) Urine Random Sodium 27 mmol/L (20-110) Urine Potassium Timed 32 mmol/L (12-62) White Blood Count 6.7 K/UL (4.8-10.8) 6.6 K/UL (4.8-10.8) Red Blood Count 2.42 M/UL (4.20-5.40) 2.36 M/UL (4.20-5.40) Hemoglobin 7.1 G/DL (12.0-16.0) 6.8 G/DL (12.0-16.0) Hematocrit 21.4 % (37.0-47.0) 21.2 % (37.0-47.0) Mean Corpuscular Volume 88 FL (80-99) 90 FL (80-99) Mean Corpuscular Hemoglobin 29.3 PG (27.0-31.0) 29.0 PG (27.0-31.0) Mean Corpuscular Hemoglobin Concent 33.1 G/DL (32.0-36.0) 32.2 G/DL (32.0-36.0) Red Cell Distribution Width 13.2 % (11.6-14.8) 13.2 % (11.6-14.8) Platelet Count 230 K/UL (150-450) 227 K/UL (150-450) Mean Platelet Volume 7.1 FL (6.5-10.1) 6.7 FL (6.5-10.1) Neutrophils (%) (Auto) % (45.0-75.0) % (45.0-75.0) Lymphocytes (%) (Auto) % (20.0-45.0) % (20.0-45.0) Monocytes (%) (Auto) % (1.0-10.0) % (1.0-10.0) Eosinophils (%) (Auto) % (0.0-3.0) % (0.0-3.0) Basophils (%) (Auto) % (0.0-2.0) % (0.0-2.0) Differential Total Cells Counted 100 100 Neutrophils % (Manual) 59 % (45-75) 48 % (45-75) Lymphocytes % (Manual) 35 % (20-45) 36 % (20-45) Monocytes % (Manual) 3 % (1-10) 11 % (1-10) Eosinophils % (Manual) 2 % (0-3) 5 % (0-3) Basophils % (Manual) 1 % (0-2) 0 % (0-2) Band Neutrophils 0 % (0-8) 0 % (0-8) Other Cell Type Pathologist comment Platelet Estimate Adequate Adequate Platelet Morphology Normal Normal Red Blood Cell Morphology Normal Erythrocyte Sedimentation Rate 68 MM/HR (0-30) Reticulocyte Count 0.4 % (0.0-2.0) Prothrombin Time 10.7 SEC (9.30-11.50) Prothromb Time International Ratio 1.0 (0.9-1.1) Activated Partial Thromboplast Time 23 SEC (23-33) Sodium Level 139 MMOL/L (136-145) 139 MMOL/L (136-145) Potassium Level 4.1 MMOL/L (3.5-5.1) 4.1 MMOL/L (3.5-5.1) Chloride Level 107 MMOL/L (98-107) 108 MMOL/L (98-107) Carbon Dioxide Level 23 MMOL/L (21-32) 19 MMOL/L (21-32) Anion Gap 9 mmol/L (5-15) 12 mmol/L (5-15) Blood Urea Nitrogen 25 mg/dL (7-18) 24 mg/dL (7-18) Creatinine 1.4 MG/DL (0.55-1.30) 1.3 MG/DL (0.55-1.30) Estimat Glomerular Filtration Rate mL/min (>60) mL/min (>60) Glucose Level 159 MG/DL (74-106) 182 MG/DL (74-106) Calcium Level 8.2 MG/DL (8.5-10.1) 7.8 MG/DL (8.5-10.1) Phosphorus Level 4.1 MG/DL (2.5-4.9) Magnesium Level 2.1 MG/DL (1.8-2.4) Iron Level 39 ug/dL (50-175) Total Iron Binding Capacity 259 ug/dL (250-450) Percent Iron Saturation 15 % (15-50) Unsaturated Iron Binding 220 ug/dL (112-346) Lactate Dehydrogenase 150 U/L (81-234) C-Reactive Protein, Quantitative 1.1 mg/dL (0.00-0.90) Vitamin B12 Level 723 PG/ML (193-986) Folate 27.3 NG/ML (8.6-58.9) Hypochromasia 1+ Ferritin 13 NG/ML (8-388) Stool Occult Blood Negative (NEGATIVE) Test 08/01/18 04:50 White Blood Count 5.7 K/UL (4.8-10.8) Red Blood Count 2.72 M/UL (4.20-5.40) Hemoglobin 8.0 G/DL (12.0-16.0) Hematocrit 23.8 % (37.0-47.0) Mean Corpuscular Volume 87 FL (80-99) Mean Corpuscular Hemoglobin 29.5 PG (27.0-31.0) Mean Corpuscular Hemoglobin Concent 33.8 G/DL (32.0-36.0) Red Cell Distribution Width 13.2 % (11.6-14.8) Platelet Count 214 K/UL (150-450) Mean Platelet Volume 6.7 FL (6.5-10.1) Neutrophils (%) (Auto) 46.8 % (45.0-75.0) Lymphocytes (%) (Auto) 35.1 % (20.0-45.0) Monocytes (%) (Auto) 8.1 % (1.0-10.0) Eosinophils (%) (Auto) 9.5 % (0.0-3.0) Basophils (%) (Auto) 0.6 % (0.0-2.0) Sodium Level 139 MMOL/L (136-145) Potassium Level 4.0 MMOL/L (3.5-5.1) Chloride Level 108 MMOL/L (98-107) Carbon Dioxide Level 23 MMOL/L (21-32) Anion Gap 8 mmol/L (5-15) Blood Urea Nitrogen 17 mg/dL (7-18) Creatinine 1.2 MG/DL (0.55-1.30) Estimat Glomerular Filtration Rate mL/min (>60) Glucose Level 97 MG/DL (74-106) Calcium Level 8.2 MG/DL (8.5-10.1) Imaging: Pelvic US (07/29/18): Findings: Uterus measures 6.3 cm length by 4 cm AP. Endometrium is thickened, measuring up to 14 mm thick. Echogenic foci may reflect gas seen within the endometrium on recent CT. The cervical and vaginal abnormality demonstrated on prior CT is not clearly evident. Neither ovary could be demonstrated. Impression: Limited exam, as described - Endometrial thickening, concerning for infection or neoplasm given findings on recent CT scan - This agrees with the preliminary interpretation provided overnight by [facility] teleradiology service. CT A/P (07/29/18): Findings: There is a pessary in place in the vaginal vault. Scanner in marked improvement of previously demonstrated pelvic floor prolapse. An unusual structure is seen anterior to the pessary in the vaginal vault. The more inferior aspect of this within the vagina is very well-circumscribed, ovoid and cylindrical, possibly representing an artificial obstruction. However, posterior to this it is more ill-defined and is contiguous with endometrial and cervical thickening and unusual gas bubbles. Within the uterus, the endometrium is thickened. A small amount of gas is seen within the endometrium in the upper uterine fundus. The appendix is normal. There is colonic diverticulosis. No evidence of diverticulitis. No free or loculated intraperitoneal gas or fluid is evident. There is a tiny fat-containing central ventral hernia. No small bowel distention. There is a small sliding-type hiatal hernia. The remainder of the stomach is unremarkable. The duodenum is unremarkable. Lack of IV contrast limits assessment of solid organs. Gallstones are evident, also described previously. The liver is grossly unremarkable. No biliary ductal dilatation. Pancreas, spleen, adrenals are unremarkable. There is interim marked atrophy of the left kidney. There is mild to moderate left hydronephrosis , but no evidence of hydroureter. No evidence of downstream obstructive ureteral lesion. The right kidney, ureters, and bladder are unremarkable. The included lung bases are clear. The bones demonstrate degenerative spondylosis changes. Impression: Interim correction of previously demonstrated pelvic floor prolapse. Pessary in place. Unusual gas and solid structure in the posterior vagina anterior to the pessary. Well circumscribed cylindrical appearance to this inferiorly suggests this could be related to prior surgery. However, this is less well- defined posteriorly, and it is contiguous with thickening of the endometrium and gas within the endometrium. This raises concern for endometrial pathology such as endometritis and/or and endometrial neoplasm. Gynecological consultation is recommended. Interim marked atrophy of the left kidney. Mild hydronephrosis raises possibility of this could be due to obstruction at the ureteropelvic junction. However, the possibility of unilateral renal artery stenosis or occlusion should also be considered as etiology. No acute abdominal pathology Diverticulosis. No evidence of diverticulitis Cholelithiasis, also previously described Assessment/Plan 73yo with postmenopausal bleeding and multiple medical comorbidities - Patient will require endometrial sampling and pessary must be removed and cleaned - Consider additional transfusion given Hgb 8.0 and patient appears to still have some light bleeding with voids - Recommend hysteroscopy, dilation, and curettage under anesthesia given her age and the presence of a pessary for the last 4 years - Need to evaluate vaginal vault under anesthesia given possible erosion - Given her age, patient will likely need dilation (either mechanical or chemical) thus is not a good candidate for bedside EMB - Require medical and cardiology clearance and once cleared patient can be scheduled for surgery - If unable to obtain clearance during this admission, patient has been instructed to follow up with her ANALYSIS DIRECTOR in [facility] (the one who placed her pessary , or another who can accommodate her quickly) for urgent visit and endometrial sampling Thank you for this interesting consult. Signed: MD Pastor Sanchez Carla M.D. Aug 01, 2018 14:46
[2018-08-01 16:00] VITALS: BP 138/72
--- NOTE | 2018-08-01 16:05 | Pulmonology Progress Note ---
Assessment/Plan Problems: (1) Uterine malignancy (2) Anemia (3) UTI (urinary tract infection) (4) Abnormal vaginal bleeding (5) Diabetes mellitus (6) Incontinence Assessment/Plan all reviewed prbc again, Hem is 8 MASK INSPECTOR reviewed sliding scale echo and CXR ordered Cardiology consult requested Subjective ROS Limited/Unobtainable: No Constitutional: Reports: no symptoms HEENT: Repors: no symptoms Allergies: Coded Allergies: NO KNOWN DRUG ALLERGIES (Verified Allergy, Unknown, 06/09/17) Objective Last 24 Hour Vital Signs Date Time Temp Pulse Resp B/P (MAP) Pulse Ox O2 Delivery O2 Flow Rate FiO2 08/01/18 12:00 97.9 65 18 149/69 (95) 98 08/01/18 11:03 57 127/76 08/01/18 09:00 Room Air 08/01/18 08:00 97.6 63 17 133/78 (96) 97 08/01/18 04:00 97.0 57 16 127/76 (93) 97 08/01/18 00:00 97.0 57 16 127/76 (93) 97 07/31/18 21:18 70 140/70 07/31/18 21:00 Room Air Intake and Output 07/31/18 08/01/18 19:00 07:00 Intake Total 800 ml 250 ml Balance 800 ml 250 ml Intake Oral 500 ml 250 ml IV Total 300 ml # Voids 4 2 # Bowel Movements 1 Objective General Appearance: WD/WN HEENT: normocephalic, atraumatic Respiratory/Chest: chest wall non-tender, lungs clear Cardiovascular: normal peripheral pulses, normal rate Abdomen: normal bowel sounds, soft, non tender Extremities: no cyanosis Skin: no ulcers Laboratory Tests 08/01/18 04:00: Stool Occult Blood Negative 08/01/18 04:50: White Blood Count 5.7, Red Blood Count 2.72L, Hemoglobin 8.0L, Hematocrit 23.8L , Mean Corpuscular Volume 87, Mean Corpuscular Hemoglobin 29.5, Mean Corpuscular Hemoglobin Concent 33.8, Red Cell Distribution Width 13.2, Platelet Count 214, Mean Platelet Volume 6.7, Neutrophils (%) (Auto) 46.8, Lymphocytes (% ) (Auto) 35.1, Monocytes (%) (Auto) 8.1, Eosinophils (%) (Auto) 9.5H, Basophils (%) (Auto) 0.6, Sodium Level 139, Potassium Level 4.0, Chloride Level 108H, Carbon Dioxide Level 23, Anion Gap 8, Blood Urea Nitrogen 17, Creatinine 1.2, Estimat Glomerular Filtration Rate , Glucose Level 97, Calcium Level 8.2L Current Medications Medications (Trade) Dose Ordered Sig/Kannan Route PRN Reason Start Time Stop Time Status Last Admin Dose Admin Acetaminophen (Tylenol) 650 mg Q6H PRN ORAL Mild Pain/Temp > 100.5 07/29/18 07:00 08/28/18 06:59 Acetaminophen/ Hydrocodone Bitart (Gustine 5/325) 1 tab Q6H PRN ORAL Moderate Pain (Pain Scale 4-6) 07/29/18 07:00 08/05/18 06:59 07/31/18 22:24 Carvedilol (Coreg) 3.125 mg EVERY 12 HOURS ORAL 07/29/18 09:00 08/28/18 08:59 08/01/18 11:03 Dextrose (Dextrose 50%) 25 ml Q30M PRN IV Hypoglycemia 07/29/18 07:00 08/28/18 06:59 Dextrose (Dextrose 50%) 50 ml Q30M PRN IV Hypoglycemia 07/29/18 07:00 08/28/18 06:59 Famotidine (Pepcid) 20 mg DAILY ORAL 07/29/18 09:00 08/28/18 08:59 08/01/18 10:33 Fluocinonide (Lidex) 1 applic DAILY TOPIC 07/29/18 10:00 08/28/18 09:59 08/01/18 11:03 Gabapentin (Neurontin) 300 mg BEDTIME ORAL 07/29/18 21:00 08/28/18 20:59 07/31/18 21:18 Insulin Aspart (NovoLOG) BEFORE MEALS AND HS SUBQ 07/29/18 11:30 08/28/18 11:29 08/01/18 12:47 Lorazepam (Ativan) 2 mg Q6H PRN ORAL For Anxiety 08/01/18 12:15 08/08/18 12:14 Morphine Sulfate (Morphine Sulfate) 2 mg Q4H PRN IVP Severe Pain (Pain Scale 7-10) 07/29/18 07:00 08/05/18 06:59 Olanzapine (ZyPREXA) 2.5 mg TID ORAL 08/01/18 13:00 08/31/18 12:59 08/01/18 12:45 Ondansetron HCl (Zofran) 4 mg Q4H PRN IVP Nausea & Vomiting 07/29/18 07:00 08/28/18 06:59 Piperacillin Sod/ Tazobactam Sod 3.375 gm/Sodium Chloride 110 ml @ 27.5 mls/hr Q8H IVPB 07/31/18 17:00 08/07/18 16:59 08/01/18 10:33 Sodium Chloride 1,000 ml @ 150 mls/hr Q6H40M IV 07/29/18 13:00 08/28/18 12:59 07/31/18 11:55 Oscar Quezada MD Aug 01, 2018 16:05
--- NOTE | 2018-08-01 16:31 | NUR ---
*-* INSURANCE *-* UPDATED CLINICALS AND REVIEWS FAXED TO: MARSHALL RIBERA P:[phone] F:[phone] F: [phone]
--- NOTE | 2018-08-01 16:52 | NUR ---
LOFT WORKER HEADASSISTANT MANAGER QUALITY MANAGEMENT SI: ANEMIA . VAGINAL BLEEDING . UTERINE TUMOR . R/O ACUTE UTERINE CARCINOMA . VS: BP 149/69, P 57, T 97.0, RR 16, [id number] RBC 2.72, Hgb 8.0, Eos% 9.5, Chloride 108, Ca 8.2 STOOL OCCULT BLOOD NEGATIVE IS:PEPCID COREG LIDEX NOVOLOG NS IV x1L PYRETHRINS PIPERACILLIN ZYPREXA MED/SURG STATUS
[2018-08-01] MEDS: LORazepam 1mg tab ORAL PRN (17:23)
--- NOTE | 2018-08-01 17:55 | General Progress Note ---
Assessment/Plan Assessment/Plan ASSESSMENT: # Endometrial thickening, concerning for infection or neoplasm given findings on recent CT scan, with Postmenopausal vaginal bleeding/endometrial hyperplasia, A FIRMWARE TEST ENGINEER consultation has been obtained --> appreciate EMERGENCY ROOM SPECIALIST recs --> need tissue pathology --> imaging has been reviewed # Anemia of iron deficiency --> Anemia workup has been reviewed, Ferritin 13 --> No evidence of hemolysis is noted, peripheral smear has been reviewed. --> Hgb goal >7. Transfuse prn. --> Medications have been reviewed --> HGB trend: 8--> 7->6.8-->8 ==> started on iv iron 100mg iv daily x 5 days # Leukocytosis/Elevated white blood cell count, unspecified likely related to underlying stress reaction, smoking, or underlying infection (especially if bandemia is noted) --> have reviewed peripheral smear and bandemia/neutrophilia noted --> continue antibiotics if they have been started by ID team --> monitor for resolution # Pelvic pain. # Diabetes type 2, regular insulin sliding scale has been instituted. # Hypercholesterolemia, Continue Lipitor as above The timing of this note does not necessarily reflect the time of the patient was seen. Greatly appreciate consultation! Subjective Constitutional: Denies: no symptoms, chills, diaphoresis, fever, malaise, weakness, other HEENT: Denies: no symptoms, eye pain, blurred vision, tearing, double vision, ear pain, ear discharge, nose pain, nose congestion, throat pain, throat swelling, mouth pain, mouth swelling, other Cardiovascular: Denies: no symptoms, chest pain, edema, irregular heart rate, lightheadedness, palpitations, syncope, other Respiratory: Denies: no symptoms, cough, orthopnea, shortness of breath, SOB with excertion, SOB at rest, sputum, stridor, wheezing, other Gastrointestinal/Abdominal: Denies: no symptoms, abdomen distended, abdominal pain, black stools, tarry stools, blood in stool, constipated, diarrhea, difficulty swallowing, nausea, poor appetite, poor fluid intake, rectal bleeding , vomiting, other Genitourinary: Denies: no symptoms, burning, discharge, frequency, flank pain, hematuria, incontinence, pain, urgency, other Endocrine: Denies: no symptoms, excessive sweating, flushing, intolerance to cold, intolerance to heat, increased hunger, increased thirst, increased urine, unexplained weight gain, unexplained weight loss, other Hematologic/Lymphatic: Denies: no symptoms, anemia, easy bleeding, easy bruising, other Allergies: Coded Allergies: NO KNOWN DRUG ALLERGIES (Verified Allergy, Unknown, 06/09/17) Subjective 07/31: Seen by bedside, hgb 6.8, will receive prbc, Awaiting FIRMWARE TEST ENGINEER consult. 08/01: Pt is awake, comfortable, no events reported, hgb 8 Objective Last 24 Hour Vital Signs Date Time Temp Pulse Resp B/P (MAP) Pulse Ox O2 Delivery O2 Flow Rate FiO2 08/01/18 16:00 98.0 58 17 138/72 (94) 98 08/01/18 12:00 97.9 65 18 149/69 (95) 98 08/01/18 11:03 57 127/76 08/01/18 09:00 Room Air 08/01/18 08:00 97.6 63 17 133/78 (96) 97 08/01/18 04:00 97.0 57 16 127/76 (93) 97 08/01/18 00:00 97.0 57 16 127/76 (93) 97 07/31/18 21:18 70 140/70 07/31/18 21:00 Room Air Intake and Output 07/31/18 08/01/18 19:00 07:00 Intake Total 800 ml 250 ml Balance 800 ml 250 ml Intake Oral 500 ml 250 ml IV Total 300 ml # Voids 4 2 # Bowel Movements 1 Laboratory Tests 08/01/18 04:00: Stool Occult Blood Negative 08/01/18 04:50: White Blood Count 5.7, Red Blood Count 2.72L, Hemoglobin 8.0L, Hematocrit 23.8L , Mean Corpuscular Volume 87, Mean Corpuscular Hemoglobin 29.5, Mean Corpuscular Hemoglobin Concent 33.8, Red Cell Distribution Width 13.2, Platelet Count 214, Mean Platelet Volume 6.7, Neutrophils (%) (Auto) 46.8, Lymphocytes (% ) (Auto) 35.1, Monocytes (%) (Auto) 8.1, Eosinophils (%) (Auto) 9.5H, Basophils (%) (Auto) 0.6, Sodium Level 139, Potassium Level 4.0, Chloride Level 108H, Carbon Dioxide Level 23, Anion Gap 8, Blood Urea Nitrogen 17, Creatinine 1.2, Estimat Glomerular Filtration Rate , Glucose Level 97, Calcium Level 8.2L Height (Feet): 5 Height (Inches): 0.00 Weight (Pounds): 148 Objective PHYSICAL EXAMINATION: VITAL SIGNS: Reviewed GENERAL: The patient is a well-developed and well-nourished female, in no apparent distress. HEENT: Eyes - pupils are equal and responsive to light and accommodation. Extraocular movements are intact. NECK: Supple without lymphadenopathy. CHEST: Lungs are clear to auscultation bilaterally without wheezes or rales. CARDIOVASCULAR: Regular rhythm and rate. S1 and S2 are normal without murmurs , rubs, or gallops. ABDOMEN: Soft, nontender, and nondistended. Positive bowel sounds. No evidence of hepatosplenomegaly. Currently, no rebound or guarding noted. EXTREMITIES: Negative for clubbing, cyanosis, or edema. NEUROLOGIC: Cranial nerves II through XII are grossly intact without focal deficits. Motor strength is 5/5 bilaterally. Deep tendon reflexes are 2+ plantar. Cruzito Willson MD Aug 01, 2018 17:55
--- NOTE | 2018-08-01 19:27 | NUR ---
HAND-OFF: Report given to MARYANNE Rangel.
--- NOTE | 2018-08-01 19:27 | NUR ---
NURSE NOTES: Received patient on bed awake, restless, on bilateral soft wrist restraints due to pulling out IV line, no s/s of any distress, IV line patent and intact. Bed in low position and locked, Will continue to monitor.
--- NOTE | 2018-08-01 19:49 | Internal Med Progress Note ---
Subjective Date of Service: Aug 01, 2018 Physician Name Rhys Yousif Attending Physician Ari Mckeon MD Current Medications Medications (Trade) Dose Ordered Sig/Kannan Route PRN Reason Start Time Stop Time Status Last Admin Dose Admin Acetaminophen (Tylenol) 650 mg Q6H PRN ORAL Mild Pain/Temp > 100.5 07/29/18 07:00 08/28/18 06:59 Acetaminophen/ Hydrocodone Bitart ([place] 5/325) 1 tab Q6H PRN ORAL Moderate Pain (Pain Scale 4-6) 07/29/18 07:00 08/05/18 06:59 07/31/18 22:24 Carvedilol (Coreg) 3.125 mg EVERY 12 HOURS ORAL 07/29/18 09:00 08/28/18 08:59 08/01/18 11:03 Dextrose (Dextrose 50%) 25 ml Q30M PRN IV Hypoglycemia 07/29/18 07:00 08/28/18 06:59 Dextrose (Dextrose 50%) 50 ml Q30M PRN IV Hypoglycemia 07/29/18 07:00 08/28/18 06:59 Famotidine (Pepcid) 20 mg DAILY ORAL 07/29/18 09:00 08/28/18 08:59 08/01/18 10:33 Fluocinonide (Lidex) 1 applic DAILY TOPIC 07/29/18 10:00 08/28/18 09:59 08/01/18 11:03 Gabapentin (Neurontin) 300 mg BEDTIME ORAL 07/29/18 21:00 08/28/18 20:59 07/31/18 21:18 Insulin Aspart (NovoLOG) BEFORE MEALS AND HS SUBQ 07/29/18 11:30 08/28/18 11:29 08/01/18 17:46 Iron Sucrose 100 mg/Sodium Chloride 60 ml @ 240 mls/hr BEDTIME IV 08/01/18 21:00 08/05/18 21:14 Lorazepam (Ativan) 2 mg Q6H PRN ORAL For Anxiety 08/01/18 12:15 08/08/18 12:14 08/01/18 17:23 Morphine Sulfate (Morphine Sulfate) 2 mg Q4H PRN IVP Severe Pain (Pain Scale 7-10) 07/29/18 07:00 08/05/18 06:59 Olanzapine (ZyPREXA) 2.5 mg TID ORAL 08/01/18 13:00 08/31/18 12:59 08/01/18 17:23 Ondansetron HCl (Zofran) 4 mg Q4H PRN IVP Nausea & Vomiting 07/29/18 07:00 08/28/18 06:59 Piperacillin Sod/ Tazobactam Sod 3.375 gm/Sodium Chloride 110 ml @ 27.5 mls/hr Q8H IVPB 07/31/18 17:00 08/07/18 16:59 08/01/18 17:45 Sodium Chloride 1,000 ml @ 150 mls/hr Q6H40M IV 07/29/18 13:00 08/28/18 12:59 07/31/18 11:55 Allergies: Coded Allergies: NO KNOWN DRUG ALLERGIES (Verified Allergy, Unknown, 06/09/17) ROS Limited/Unobtainable: No Constitutional: Reports: no symptoms HEENT: Reports: no symptoms Cardiovascular: Reports: no symptoms Respiratory: Reports: no symptoms Gastrointestinal/Abdominal: Reports: no symptoms Genitourinary: Reports: no symptoms Neurologic/Psychiatric: Reports: no symptoms Subjective 73 YO F admitted with post menopausal vaginal bleeding. Now severe anemia. Cover for Int Med-Dr Mckeon. Await cardiology clearance for endometrial biopsy under anesthesia Objective Last Vital Signs Date Time Temp Pulse Resp B/P (MAP) Pulse Ox O2 Delivery O2 Flow Rate FiO2 08/01/18 16:00 98.0 58 17 138/72 (94) 98 08/01/18 09:00 Room Air Laboratory Tests Test 08/01/18 04:00 08/01/18 04:50 Stool Occult Blood Negative (NEGATIVE) White Blood Count 5.7 K/UL (4.8-10.8) Red Blood Count 2.72 M/UL (4.20-5.40) L Hemoglobin 8.0 G/DL (12.0-16.0) L Hematocrit 23.8 % (37.0-47.0) L Mean Corpuscular Volume 87 FL (80-99) Mean Corpuscular Hemoglobin 29.5 PG (27.0-31.0) Mean Corpuscular Hemoglobin Concent 33.8 G/DL (32.0-36.0) Red Cell Distribution Width 13.2 % (11.6-14.8) Platelet Count 214 K/UL (150-450) Mean Platelet Volume 6.7 FL (6.5-10.1) Neutrophils (%) (Auto) 46.8 % (45.0-75.0) Lymphocytes (%) (Auto) 35.1 % (20.0-45.0) Monocytes (%) (Auto) 8.1 % (1.0-10.0) Eosinophils (%) (Auto) 9.5 % (0.0-3.0) H Basophils (%) (Auto) 0.6 % (0.0-2.0) Sodium Level 139 MMOL/L (136-145) Potassium Level 4.0 MMOL/L (3.5-5.1) Chloride Level 108 MMOL/L (98-107) H Carbon Dioxide Level 23 MMOL/L (21-32) Anion Gap 8 mmol/L (5-15) Blood Urea Nitrogen 17 mg/dL (7-18) Creatinine 1.2 MG/DL (0.55-1.30) Estimat Glomerular Filtration Rate mL/min (>60) Glucose Level 97 MG/DL (74-106) Calcium Level 8.2 MG/DL (8.5-10.1) L Intake and Output 07/31/18 08/01/18 19:00 07:00 Intake Total 800 ml 250 ml Balance 800 ml 250 ml Intake Oral 500 ml 250 ml IV Total 300 ml # Voids 4 2 # Bowel Movements 1 Objective PHYSICAL EXAMINATION: GENERAL: The patient is a well-developed and well-nourished female, in no apparent distress. HEENT: Eyes - pupils are equal and responsive to light and accommodation. Extraocular movements are intact. NECK: Supple without lymphadenopathy. CHEST: Lungs are clear to auscultation bilaterally without wheezes or rales. CARDIOVASCULAR: Regular rhythm and rate. S1 and S2 are normal without murmurs, rubs, or gallops. ABDOMEN: Soft, nontender, and nondistended. Positive bowel sounds. No evidence of hepatosplenomegaly. Currently, no rebound or guarding noted. EXTREMITIES: Negative for clubbing, cyanosis, or edema. RECTAL/GENITAL: Refused. NEUROLOGIC: Cranial nerves II through XII are grossly intact without focal deficits. Motor strength is 5/5 bilaterally. Deep tendon reflexes are 2+ Assessment/Plan Assessment/Plan ASSESSMENT: This is a 73-year-old female. 1. Postmenopausal vaginal bleeding. 2. Probable endometrial cancer versus endometrial hyperplasia. 3. Pelvic pain. 4. Diabetes type 2. 5. Hypercholesterolemia. 6. Severe anemia-blood loss 7. Agitation TREATMENT: 1. Postmenopausal vaginal bleeding/endometrial hyperplasia. A LABORER TIN CAN consultation has been obtained with Dr. Torrez. We will follow recommendations of LABORER TIN CAN. The patient will require an endometrial biopsy under anesthesia during this hospitalization-see LABORER TIN CAN note. A cardiology cnsult has been obtained with Dr Shaw for clearance for surgery. An Oncology consultation with Dr. Cruzito Willson. 2. Diabetes type 2. Regular insulin sliding scale has been instituted. 3. Hypercholesterolemia. Continue Lipitor as above. 4. Hypertension. Continue Coreg as above. 5. Transfuse 1 unit PRBC per heme/onc-Dr Willson 6. Ativan PRN; await psych consult Rhys Yousif MD Aug 01, 2018 19:49
[2018-08-01 20:00] VITALS: BP 154/78
[2018-08-01] MEDS: Iron Sucrose 100 MG in NS 55 ML IV SCH (21:00)
--- NOTE | 2018-08-01 23:05 | NUR ---
NURSE NOTES: BT PRBC started, vs stable, no adverse reaction noted, will continue to monitor.
[2018-08-02] VITALS: BP 127/83
[2018-08-02] MEDS: LORazepam 1mg tab ORAL PRN ×2 (00:32→09:18)
[2018-08-02] MEDS: Zoysn 3.37gm in NS 100ML IVPB SCH ×3 (01:27→17:24)
--- NOTE | 2018-08-02 02:15 | NUR ---
NURSE NOTES: BT 1 prbc finished, no adverse reaction noted, vs stable, patient is sleeping, will continue to monitor.
[2018-08-02 04:00] VITALS: BP 150/80
[2018-08-02] MEDS: NovoLOG Insulin Flexpen SUBQ SCH ×4 (06:06→20:39)
[2018-08-02 07:19] LABS: ANION GAP 10 mmol/L (5-15); BASOPHILS % (AUTO) 0.7 % (0.0-2.0); BLOOD UREA NITROGEN 16 mg/dL (7-18); CALCIUM 8.5 MG/DL (8.5-10.1); CARBON DIOXIDE 23 MMOL/L (21-32); CHLORIDE 107 MMOL/L (98-107); CREATININE 1.1 MG/DL (0.55-1.30); EOSINOPHILS % (AUTO) 5.7 % (0.0-3.0); HEMATOCRIT 30.5 % (37.0-47.0); HEMOGLOBIN 10.1 G/DL (12.0-16.0); LYMPHOCYTES % (AUTO) 16.8 % (20.0-45.0); MEAN CORPUSCULAR VOLUME 89 FL (80-99); MONOCYTES % (AUTO) 7.5 % (1.0-10.0); NEUTROPHILS % (AUTO) 69.3 % (45.0-75.0); PLATELET COUNT 241 K/UL (150-450); POTASSIUM 3.8 MMOL/L (3.5-5.1); RED BLOOD COUNT 3.44 M/UL (4.20-5.40); RED CELL DISTRIBUTION WIDTH 13.3 % (11.6-14.8); SODIUM 140 MMOL/L (136-145); WHITE BLOOD COUNT 9.2 K/UL (4.8-10.8)
--- NOTE | 2018-08-02 07:26 | NUR ---
NURSE NOTES: Patient alert x1, Upper Sorbian speaking; on room air, no sign of shortness of breath, no distress; no sign of chest pain; restrain on both wrists; fall risk, bed alarm on, bed at lowest position, side rails up x2; Will check blood sugar as scheduled; call light within reach, will keep monitoring.
--- NOTE | 2018-08-02 07:27 | NUR ---
HAND-OFF: Report given to Tammie MADDEN.
[2018-08-02 08:00] VITALS: BP 134/85
[2018-08-02] MEDS: OLANZapine 2.5mg tab ORAL SCH ×3 (09:06→17:23)
[2018-08-02] MEDS: Fluocinonide 15gm Cream TOPIC SCH (09:07)
--- NOTE | 2018-08-02 10:18 | NUR ---
MARKET SPECIALISTOTM CONSULTANT SI:ANEMIA . VAGINAL BLEEDING . UTERINE TUMOR . R/O ACUTE UTERINE CARCINOMA VS: BP 150/80, P 67, T 97.9, RR 18, SpO2 98 RBC 3.44, Hgb 10.1, Hct 30.5, IS:COREG 3.125mg LIDEX NOVOLOG NS IV x1L PEPCID 20mg PIPERACILLIN 110ml ZYPREXA 2.5 mg GABAPENTIN 300mg MED/SURG STATUS
--- NOTE | 2018-08-02 10:44 | General Progress Note ---
Assessment/Plan Problem List: (1) Acute metabolic encephalopathy ICD Codes: G93.41 - Metabolic encephalopathy SNOMED: 59247268, [id number] (2) Alcohol dependence ICD Codes: F10.20 - Alcohol dependence, uncomplicated SNOMED: 02019709, [id number] Status: stable, progressing Assessment/Plan Zyprexa 5mg po tid Ativan prn cont restraints Subjective Neurologic/Psychiatric: Reports: anxiety, depressed, emotional problems Allergies: Coded Allergies: NO KNOWN DRUG ALLERGIES (Verified Allergy, Unknown, 06/09/17) Objective Last 24 Hour Vital Signs Date Time Temp Pulse Resp B/P (MAP) Pulse Ox O2 Delivery O2 Flow Rate FiO2 08/02/18 09:06 67 134/85 08/02/18 09:00 Room Air 08/02/18 08:00 97.9 67 18 134/85 (101) 99 08/02/18 04:00 97.7 82 18 150/80 (103) 98 08/02/18 00:00 97.8 89 18 127/83 (98) 96 08/01/18 21:00 Room Air 08/01/18 20:42 85 154/78 08/01/18 20:00 98.9 85 18 154/78 (103) 97 08/01/18 16:00 98.0 58 17 138/72 (94) 98 08/01/18 12:00 97.9 65 18 149/69 (95) 98 08/01/18 11:03 57 127/76 Intake and Output 08/01/18 08/02/18 18:59 06:59 Intake Total 620 ml 110.0 ml Balance 620 ml 110.0 ml Intake Oral 620 ml IV Total 110.0 ml # Voids 2 # Bowel Movements 1 1 Laboratory Tests 08/02/18 06:40: White Blood Count 9.2#, Red Blood Count 3.44L, Hemoglobin 10.1L, Hematocrit 30.5L, Mean Corpuscular Volume 89, Mean Corpuscular Hemoglobin 29.4, Mean Corpuscular Hemoglobin Concent 33.2, Red Cell Distribution Width 13.3, Platelet Count 241, Mean Platelet Volume 7.1, Neutrophils (%) (Auto) 69.3, Lymphocytes (% ) (Auto) 16.8L, Monocytes (%) (Auto) 7.5, Eosinophils (%) (Auto) 5.7H, Basophils (%) (Auto) 0.7, Sodium Level 140, Potassium Level 3.8, Chloride Level 107, Carbon Dioxide Level 23, Anion Gap 10, Blood Urea Nitrogen 16, Creatinine 1.1, Estimat Glomerular Filtration Rate , Glucose Level 103, Calcium Level 8.5 Height (Feet): 5 Height (Inches): 0.00 Weight (Pounds): 148 General Appearance: WD/WN, no apparent distress, alert Neurologic: oriented x 3, responsive, depressed affect Tip Frazier MD Aug 02, 2018 10:44
--- NOTE | 2018-08-02 11:06 | Cardiac Electrophysiology PN ---
Subjective Subjective [id number] Objective Last 24 Hour Vital Signs Date Time Temp Pulse Resp B/P (MAP) Pulse Ox O2 Delivery O2 Flow Rate FiO2 08/02/18 09:06 67 134/85 08/02/18 09:00 Room Air 08/02/18 08:00 97.9 67 18 134/85 (101) 99 08/02/18 04:00 97.7 82 18 150/80 (103) 98 08/02/18 00:00 97.8 89 18 127/83 (98) 96 08/01/18 21:00 Room Air 08/01/18 20:42 85 154/78 08/01/18 20:00 98.9 85 18 154/78 (103) 97 08/01/18 16:00 98.0 58 17 138/72 (94) 98 08/01/18 12:00 97.9 65 18 149/69 (95) 98 Intake and Output 08/01/18 08/02/18 18:59 06:59 Intake Total 620 ml 110.0 ml Balance 620 ml 110.0 ml Intake Oral 620 ml IV Total 110.0 ml # Voids 2 # Bowel Movements 1 1 Laboratory Tests Test 08/02/18 06:40 White Blood Count 9.2 K/UL (4.8-10.8) # Red Blood Count 3.44 M/UL (4.20-5.40) L Hemoglobin 10.1 G/DL (12.0-16.0) L Hematocrit 30.5 % (37.0-47.0) L Mean Corpuscular Volume 89 FL (80-99) Mean Corpuscular Hemoglobin 29.4 PG (27.0-31.0) Mean Corpuscular Hemoglobin Concent 33.2 G/DL (32.0-36.0) Red Cell Distribution Width 13.3 % (11.6-14.8) Platelet Count 241 K/UL (150-450) Mean Platelet Volume 7.1 FL (6.5-10.1) Neutrophils (%) (Auto) 69.3 % (45.0-75.0) Lymphocytes (%) (Auto) 16.8 % (20.0-45.0) L Monocytes (%) (Auto) 7.5 % (1.0-10.0) Eosinophils (%) (Auto) 5.7 % (0.0-3.0) H Basophils (%) (Auto) 0.7 % (0.0-2.0) Sodium Level 140 MMOL/L (136-145) Potassium Level 3.8 MMOL/L (3.5-5.1) Chloride Level 107 MMOL/L (98-107) Carbon Dioxide Level 23 MMOL/L (21-32) Anion Gap 10 mmol/L (5-15) Blood Urea Nitrogen 16 mg/dL (7-18) Creatinine 1.1 MG/DL (0.55-1.30) Estimat Glomerular Filtration Rate mL/min (>60) Glucose Level 103 MG/DL (74-106) Calcium Level 8.5 MG/DL (8.5-10.1) Abelardo Shaw MD Aug 02, 2018 11:06
--- NOTE | 2018-08-02 11:31 | Diagnostic Imaging Report ---
Indication: Cough Technique: One view of the chest Comparison: For 12/10/2012 Findings: There is mild central bronchial wall thickening, may indicate bronchitis changes. No definite acute infiltrates, effusions, or congestion. Normal heart size. Tortuous calcified aorta Impression: Possible mild bronchitis changes. No acute process otherwise
[2018-08-02 12:00] VITALS: BP 141/58
--- NOTE | 2018-08-02 14:28 | NUR ---
*-* INSURANCE *-* UPDATED REVIEWS FAXED TO: MARSHALL RIBERA P:[phone] F:[phone] F: [phone]
--- NOTE | 2018-08-02 15:40 | Pulmonology Progress Note ---
Assessment/Plan Problems: (1) Uterine malignancy (2) Anemia (3) UTI (urinary tract infection) (4) Abnormal vaginal bleeding (5) Diabetes mellitus (6) Incontinence Assessment/Plan all reviewed prbc again, Hem is 8 BEAM RACKER reviewed sliding scale echo and CXR ordered Cardiology consult requested Subjective ROS Limited/Unobtainable: No Allergies: Coded Allergies: NO KNOWN DRUG ALLERGIES (Verified Allergy, Unknown, 06/09/17) Objective Last 24 Hour Vital Signs Date Time Temp Pulse Resp B/P (MAP) Pulse Ox O2 Delivery O2 Flow Rate FiO2 08/02/18 12:00 97.5 73 18 141/58 (85) 99 08/02/18 09:06 67 134/85 08/02/18 09:00 Room Air 08/02/18 08:00 97.9 67 18 134/85 (101) 99 08/02/18 04:00 97.7 82 18 150/80 (103) 98 08/02/18 00:00 97.8 89 18 127/83 (98) 96 08/01/18 21:00 Room Air 08/01/18 20:42 85 154/78 08/01/18 20:00 98.9 85 18 154/78 (103) 97 08/01/18 16:00 98.0 58 17 138/72 (94) 98 Intake and Output 08/01/18 08/02/18 19:00 07:00 Intake Total 620 ml 260.0 ml Balance 620 ml 260.0 ml Intake Oral 620 ml IV Total 260.0 ml # Voids 2 # Bowel Movements 1 1 Objective General Appearance: WD/WN HEENT: normocephalic, atraumatic Respiratory/Chest: chest wall non-tender, lungs clear Cardiovascular: normal peripheral pulses, normal rate Abdomen: normal bowel sounds, soft, non tender Extremities: no cyanosis Skin: no ulcers Laboratory Tests 08/02/18 06:40: White Blood Count 9.2#, Red Blood Count 3.44L, Hemoglobin 10.1L, Hematocrit 30.5L, Mean Corpuscular Volume 89, Mean Corpuscular Hemoglobin 29.4, Mean Corpuscular Hemoglobin Concent 33.2, Red Cell Distribution Width 13.3, Platelet Count 241, Mean Platelet Volume 7.1, Neutrophils (%) (Auto) 69.3, Lymphocytes (% ) (Auto) 16.8L, Monocytes (%) (Auto) 7.5, Eosinophils (%) (Auto) 5.7H, Basophils (%) (Auto) 0.7, Sodium Level 140, Potassium Level 3.8, Chloride Level 107, Carbon Dioxide Level 23, Anion Gap 10, Blood Urea Nitrogen 16, Creatinine 1.1, Estimat Glomerular Filtration Rate , Glucose Level 103, Calcium Level 8.5 Current Medications Medications (Trade) Dose Ordered Sig/Kannan Route PRN Reason Start Time Stop Time Status Last Admin Dose Admin Acetaminophen (Tylenol) 650 mg Q6H PRN ORAL Mild Pain/Temp > 100.5 07/29/18 07:00 08/28/18 06:59 Acetaminophen/ Hydrocodone Bitart ([place] 5/325) 1 tab Q6H PRN ORAL Moderate Pain (Pain Scale 4-6) 07/29/18 07:00 08/05/18 06:59 07/31/18 22:24 Carvedilol (Coreg) 3.125 mg EVERY 12 HOURS ORAL 07/29/18 09:00 08/28/18 08:59 08/02/18 09:06 Dextrose (Dextrose 50%) 25 ml Q30M PRN IV Hypoglycemia 07/29/18 07:00 08/28/18 06:59 Dextrose (Dextrose 50%) 50 ml Q30M PRN IV Hypoglycemia 07/29/18 07:00 08/28/18 06:59 Famotidine (Pepcid) 20 mg DAILY ORAL 07/29/18 09:00 08/28/18 08:59 08/02/18 09:06 Fluocinonide (Lidex) 1 applic DAILY TOPIC 07/29/18 10:00 08/28/18 09:59 08/02/18 09:07 Gabapentin (Neurontin) 300 mg BEDTIME ORAL 07/29/18 21:00 08/28/18 20:59 08/01/18 20:42 Insulin Aspart (NovoLOG) BEFORE MEALS AND HS SUBQ 07/29/18 11:30 08/28/18 11:29 08/02/18 12:04 Iron Sucrose 100 mg/Sodium Chloride 60 ml @ 240 mls/hr BEDTIME IV 08/01/18 21:00 08/05/18 21:14 Lorazepam (Ativan) 2 mg Q6H PRN ORAL For Anxiety 08/01/18 12:15 08/08/18 12:14 08/02/18 09:18 Morphine Sulfate (Morphine Sulfate) 2 mg Q4H PRN IVP Severe Pain (Pain Scale 7-10) 07/29/18 07:00 08/05/18 06:59 Olanzapine (ZyPREXA) 2.5 mg TID ORAL 08/01/18 13:00 08/31/18 12:59 08/02/18 12:03 Ondansetron HCl (Zofran) 4 mg Q4H PRN IVP Nausea & Vomiting 07/29/18 07:00 08/28/18 06:59 Piperacillin Sod/ Tazobactam Sod 3.375 gm/Sodium Chloride 110 ml @ 27.5 mls/hr Q8H IVPB 07/31/18 17:00 08/07/18 16:59 08/02/18 09:07 Sodium Chloride 1,000 ml @ 150 mls/hr Q6H40M IV 07/29/18 13:00 08/28/18 12:59 08/02/18 09:11 Oscar Quezada MD Aug 02, 2018 15:40
[2018-08-02 16:00] VITALS: BP 129/80
--- NOTE | 2018-08-02 16:33 | Cardiology Report ---
APPROVED REPORT EXAM: Two-dimensional and M-mode echocardiogram with Doppler and color Doppler. INDICATION Pre-Op M-Mode DIMENSIONS IVSd0.9 (0.7-1.1cm)Left Atrium (MM)3.4 (1.6-4.0cm) LVDd4.2 (3.5-5.6cm)Aortic Root3.4 (2.0-3.7cm) PWd1.1 (0.7-1.1cm)Aortic Cusp Exc.1.9 (1.5-2.0cm) LVDs2.7 (2.5-4.0cm) PWs1.1 cm Technically difficult study due to pt's resistance. Normal left ventricular chamber size, systolic function and wall motion to extent visualized. Left ventricular ejection fraction estimated to be 65 %. Mild left ventricular hypertrophy by 2D. No evidence of pericardial effusion Mild right atrial enlargement. All other cardiac chamber sizes are within normal limits. Focal aortic valve sclerosis with adequate cusp excursion. Thickened mitral valve leaflets with normal excursion. Mitral annulus and aortic root calcification. Pulmonic valve not well visualized. Normal tricuspid valve structure. IVC measured at 2.0 cm with slight physiologic collapse A color flow and spectral Doppler study was performed and revealed: No aortic regurgitation. Mild mitral regurgitation. Mitral diastolic velocities suggest reduced left ventricular relaxation c/w mild LV diastolic dysfunction. Moderate tricuspid regurgitation. Tricuspid systolic velocities suggests peak right ventricular systolic pressure of 51 mmHg, consistent with moderate pulmonary hypertension.
--- NOTE | 2018-08-02 16:35 | Internal Med Progress Note ---
Subjective Date of Service: Aug 02, 2018 Physician Name Rhys Yousif Attending Physician Ari Mckeon MD Current Medications Medications (Trade) Dose Ordered Sig/Kannan Route PRN Reason Start Time Stop Time Status Last Admin Dose Admin Acetaminophen (Tylenol) 650 mg Q6H PRN ORAL Mild Pain/Temp > 100.5 07/29/18 07:00 08/28/18 06:59 Acetaminophen/ Hydrocodone Bitart ([place] 5/325) 1 tab Q6H PRN ORAL Moderate Pain (Pain Scale 4-6) 07/29/18 07:00 08/05/18 06:59 07/31/18 22:24 Carvedilol (Coreg) 3.125 mg EVERY 12 HOURS ORAL 07/29/18 09:00 08/28/18 08:59 08/02/18 09:06 Dextrose (Dextrose 50%) 25 ml Q30M PRN IV Hypoglycemia 07/29/18 07:00 08/28/18 06:59 Dextrose (Dextrose 50%) 50 ml Q30M PRN IV Hypoglycemia 07/29/18 07:00 08/28/18 06:59 Famotidine (Pepcid) 20 mg DAILY ORAL 07/29/18 09:00 08/28/18 08:59 08/02/18 09:06 Fluocinonide (Lidex) 1 applic DAILY TOPIC 07/29/18 10:00 08/28/18 09:59 08/02/18 09:07 Gabapentin (Neurontin) 300 mg BEDTIME ORAL 07/29/18 21:00 08/28/18 20:59 08/01/18 20:42 Insulin Aspart (NovoLOG) BEFORE MEALS AND HS SUBQ 07/29/18 11:30 08/28/18 11:29 08/02/18 12:04 Iron Sucrose 100 mg/Sodium Chloride 60 ml @ 240 mls/hr BEDTIME IV 08/01/18 21:00 08/05/18 21:14 Lorazepam (Ativan) 2 mg Q6H PRN ORAL For Anxiety 08/01/18 12:15 08/08/18 12:14 08/02/18 09:18 Morphine Sulfate (Morphine Sulfate) 2 mg Q4H PRN IVP Severe Pain (Pain Scale 7-10) 07/29/18 07:00 08/05/18 06:59 Olanzapine (ZyPREXA) 2.5 mg TID ORAL 08/01/18 13:00 08/31/18 12:59 08/02/18 12:03 Ondansetron HCl (Zofran) 4 mg Q4H PRN IVP Nausea & Vomiting 07/29/18 07:00 08/28/18 06:59 Piperacillin Sod/ Tazobactam Sod 3.375 gm/Sodium Chloride 110 ml @ 27.5 mls/hr Q8H IVPB 07/31/18 17:00 08/07/18 16:59 08/02/18 09:07 Sodium Chloride 1,000 ml @ 150 mls/hr Q6H40M IV 07/29/18 13:00 08/28/18 12:59 08/02/18 09:11 Allergies: Coded Allergies: NO KNOWN DRUG ALLERGIES (Verified Allergy, Unknown, 06/09/17) ROS Limited/Unobtainable: No Constitutional: Reports: no symptoms HEENT: Reports: no symptoms Cardiovascular: Reports: no symptoms Respiratory: Reports: no symptoms Gastrointestinal/Abdominal: Reports: no symptoms Genitourinary: Reports: other - vaginal bleeding Subjective 73 YO F admitted with post menopausal vaginal bleeding. Now severe anemia. Cover for Int Med-Dr Mckeon. Await cardiology clearance for endometrial biopsy under anesthesia Objective Last Vital Signs Date Time Temp Pulse Resp B/P (MAP) Pulse Ox O2 Delivery O2 Flow Rate FiO2 08/02/18 16:00 98.2 73 18 129/80 (96) 98 08/02/18 09:00 Room Air Laboratory Tests Test 08/02/18 06:40 White Blood Count 9.2 K/UL (4.8-10.8) # Red Blood Count 3.44 M/UL (4.20-5.40) L Hemoglobin 10.1 G/DL (12.0-16.0) L Hematocrit 30.5 % (37.0-47.0) L Mean Corpuscular Volume 89 FL (80-99) Mean Corpuscular Hemoglobin 29.4 PG (27.0-31.0) Mean Corpuscular Hemoglobin Concent 33.2 G/DL (32.0-36.0) Red Cell Distribution Width 13.3 % (11.6-14.8) Platelet Count 241 K/UL (150-450) Mean Platelet Volume 7.1 FL (6.5-10.1) Neutrophils (%) (Auto) 69.3 % (45.0-75.0) Lymphocytes (%) (Auto) 16.8 % (20.0-45.0) L Monocytes (%) (Auto) 7.5 % (1.0-10.0) Eosinophils (%) (Auto) 5.7 % (0.0-3.0) H Basophils (%) (Auto) 0.7 % (0.0-2.0) Sodium Level 140 MMOL/L (136-145) Potassium Level 3.8 MMOL/L (3.5-5.1) Chloride Level 107 MMOL/L (98-107) Carbon Dioxide Level 23 MMOL/L (21-32) Anion Gap 10 mmol/L (5-15) Blood Urea Nitrogen 16 mg/dL (7-18) Creatinine 1.1 MG/DL (0.55-1.30) Estimat Glomerular Filtration Rate mL/min (>60) Glucose Level 103 MG/DL (74-106) Calcium Level 8.5 MG/DL (8.5-10.1) Intake and Output 08/01/18 08/02/18 19:00 07:00 Intake Total 620 ml 260.0 ml Balance 620 ml 260.0 ml Intake Oral 620 ml IV Total 260.0 ml # Voids 2 # Bowel Movements 1 1 Objective PHYSICAL EXAMINATION: GENERAL: The patient is a well-developed and well-nourished female, in no apparent distress. HEENT: Eyes - pupils are equal and responsive to light and accommodation. Extraocular movements are intact. NECK: Supple without lymphadenopathy. CHEST: Lungs are clear to auscultation bilaterally without wheezes or rales. CARDIOVASCULAR: Regular rhythm and rate. S1 and S2 are normal without murmurs, rubs, or gallops. ABDOMEN: Soft, nontender, and nondistended. Positive bowel sounds. No evidence of hepatosplenomegaly. Currently, no rebound or guarding noted. EXTREMITIES: Negative for clubbing, cyanosis, or edema. RECTAL/GENITAL: Refused. NEUROLOGIC: Cranial nerves II through XII are grossly intact without focal deficits. Motor strength is 5/5 bilaterally. Deep tendon reflexes are 2+ Assessment/Plan Assessment/Plan ASSESSMENT: This is a 73-year-old female. 1. Postmenopausal vaginal bleeding. 2. Probable endometrial cancer versus endometrial hyperplasia. 3. Pelvic pain. 4. Diabetes type 2. 5. Hypercholesterolemia. 6. Severe anemia-blood loss 7. Agitation TREATMENT: 1. Postmenopausal vaginal bleeding/endometrial hyperplasia. A ANIMAL CARE WORKER consultation has been obtained with Dr. Torrez. We will follow recommendations of ANIMAL CARE WORKER. The patient will require an endometrial biopsy under anesthesia during this hospitalization-see ANIMAL CARE WORKER note. A cardiology consult has been obtained with Dr Shaw for clearance for surgery. An Oncology consultation with Dr. Cruzito Willson. 2. Diabetes type 2. Regular insulin sliding scale has been instituted. 3. Hypercholesterolemia. Continue Lipitor as above. 4. Hypertension. Continue Coreg as above. 5. Transfuse 1 unit PRBC per heme/onc-Dr Willson 6. Ativan PRN; see psych consult 7. await cardiology clearance for surgery Rhys Yousif MD Aug 02, 2018 16:35
--- NOTE | 2018-08-02 16:39 | General Progress Note ---
Assessment/Plan Assessment/Plan ASSESSMENT: # Endometrial thickening, concerning for infection or neoplasm given findings on recent CT scan, with Postmenopausal vaginal bleeding/endometrial hyperplasia, A MANAGER CONTRACTING consultation has been obtained --> appreciate CAREER COUNSELOR recs --> need tissue pathology --> imaging has been reviewed # Anemia of iron deficiency --> Anemia workup has been reviewed, Ferritin 13 --> No evidence of hemolysis is noted, peripheral smear has been reviewed. --> Hgb goal >7. Transfuse prn. --> Medications have been reviewed --> HGB trend: 8--> 7->6.8-->8-->10 ==> started on iv iron 100mg iv daily x 5 days # Leukocytosis/Elevated white blood cell count, unspecified likely related to underlying stress reaction, smoking, or underlying infection (especially if bandemia is noted) --> have reviewed peripheral smear and bandemia/neutrophilia noted --> continue antibiotics if they have been started by ID team --> monitor for resolution # Pelvic pain. # Diabetes type 2, regular insulin sliding scale has been instituted. # Hypercholesterolemia, Continue Lipitor as above The timing of this note does not necessarily reflect the time of the patient was seen. Greatly appreciate consultation! Subjective Constitutional: Denies: no symptoms, chills, diaphoresis, fever, malaise, weakness, other HEENT: Denies: no symptoms, eye pain, blurred vision, tearing, double vision, ear pain, ear discharge, nose pain, nose congestion, throat pain, throat swelling, mouth pain, mouth swelling, other Cardiovascular: Denies: no symptoms, chest pain, edema, irregular heart rate, lightheadedness, palpitations, syncope, other Respiratory: Denies: no symptoms, cough, orthopnea, shortness of breath, SOB with excertion, SOB at rest, sputum, stridor, wheezing, other Gastrointestinal/Abdominal: Denies: no symptoms, abdomen distended, abdominal pain, black stools, tarry stools, blood in stool, constipated, diarrhea, difficulty swallowing, nausea, poor appetite, poor fluid intake, rectal bleeding , vomiting, other Genitourinary: Denies: no symptoms, burning, discharge, frequency, flank pain, hematuria, incontinence, pain, urgency, other Neurologic/Psychiatric: Denies: no symptoms, anxiety, depressed, emotional problems, headache, numbness, paresthesia, pre-existing deficit, seizure, tingling, tremors, weakness, other Endocrine: Denies: no symptoms, excessive sweating, flushing, intolerance to cold, intolerance to heat, increased hunger, increased thirst, increased urine, unexplained weight gain, unexplained weight loss, other Hematologic/Lymphatic: Denies: no symptoms, anemia, easy bleeding, easy bruising, other Allergies: Coded Allergies: NO KNOWN DRUG ALLERGIES (Verified Allergy, Unknown, 06/09/17) Subjective 07/31: Seen by bedside, hgb 6.8, will receive prbc, Awaiting MANAGER CONTRACTING consult. 08/01: Pt is awake, comfortable, no events reported, hgb 8 08/02: awake, comfortable, no acute distress reported. Objective Last 24 Hour Vital Signs Date Time Temp Pulse Resp B/P (MAP) Pulse Ox O2 Delivery O2 Flow Rate FiO2 08/02/18 16:00 98.2 73 18 129/80 (96) 98 08/02/18 12:00 97.5 73 18 141/58 (85) 99 08/02/18 09:06 67 134/85 08/02/18 09:00 Room Air 08/02/18 08:00 97.9 67 18 134/85 (101) 99 08/02/18 04:00 97.7 82 18 150/80 (103) 98 08/02/18 00:00 97.8 89 18 127/83 (98) 96 08/01/18 21:00 Room Air 08/01/18 20:42 85 154/78 08/01/18 20:00 98.9 85 18 154/78 (103) 97 Intake and Output 08/01/18 08/02/18 19:00 07:00 Intake Total 620 ml 260.0 ml Balance 620 ml 260.0 ml Intake Oral 620 ml IV Total 260.0 ml # Voids 2 # Bowel Movements 1 1 Laboratory Tests 08/02/18 06:40: White Blood Count 9.2#, Red Blood Count 3.44L, Hemoglobin 10.1L, Hematocrit 30.5L, Mean Corpuscular Volume 89, Mean Corpuscular Hemoglobin 29.4, Mean Corpuscular Hemoglobin Concent 33.2, Red Cell Distribution Width 13.3, Platelet Count 241, Mean Platelet Volume 7.1, Neutrophils (%) (Auto) 69.3, Lymphocytes (% ) (Auto) 16.8L, Monocytes (%) (Auto) 7.5, Eosinophils (%) (Auto) 5.7H, Basophils (%) (Auto) 0.7, Sodium Level 140, Potassium Level 3.8, Chloride Level 107, Carbon Dioxide Level 23, Anion Gap 10, Blood Urea Nitrogen 16, Creatinine 1.1, Estimat Glomerular Filtration Rate , Glucose Level 103, Calcium Level 8.5 Height (Feet): 5 Height (Inches): 0.00 Weight (Pounds): 148 Objective PHYSICAL EXAMINATION: VITAL SIGNS: Reviewed GENERAL: The patient is a well-developed and well-nourished female, in no apparent distress. HEENT: Eyes - pupils are equal and responsive to light and accommodation. Extraocular movements are intact. NECK: Supple without lymphadenopathy. CHEST: Lungs are clear to auscultation bilaterally without wheezes or rales. CARDIOVASCULAR: Regular rhythm and rate. S1 and S2 are normal without murmurs , rubs, or gallops. ABDOMEN: Soft, nontender, and nondistended. Positive bowel sounds. No evidence of hepatosplenomegaly. Currently, no rebound or guarding noted. EXTREMITIES: Negative for clubbing, cyanosis, or edema. NEUROLOGIC: Cranial nerves II through XII are grossly intact without focal deficits. Motor strength is 5/5 bilaterally. Deep tendon reflexes are 2+ plantar. Cruzito Willson MD Aug 02, 2018 16:39
--- NOTE | 2018-08-02 18:10 | NUR ---
NURSE NOTES: Patient has heal lice, I communicated MD Yousif, order received.
--- NOTE | 2018-08-02 19:23 | NUR ---
NURSE NOTES: Received patient on bed sleeping, no s/s of any distress, on bilateral soft wrist restraints, no edema noted on the site. IV line intact, antibiotic running. Grand daughter at bedside. Bed in low position and locked, will continue to monitor.
--- NOTE | 2018-08-02 19:23 | NUR ---
HAND-OFF: Report given to MARYANNE Saenz.
[2018-08-02] MEDS ORDERED: Lice Treatment Shampoo 4oz Bottle TOPIC ONE (19:30)
[2018-08-02 20:00] VITALS: BP 164/81
[2018-08-02] MEDS: Iron Sucrose 100 MG in NS 55 ML IV SCH (21:00)
[2018-08-03] VITALS: BP 135/61
[2018-08-03] MEDS: Zoysn 3.37gm in NS 100ML IVPB SCH ×3 (00:37→17:07)
[2018-08-03 04:00] VITALS: BP 123/54
[2018-08-03] MEDS: NovoLOG Insulin Flexpen SUBQ SCH ×4 (06:23→21:32)
--- NOTE | 2018-08-03 07:16 | NUR ---
NURSE NOTES: Patient asleep, no sign of distress and shortness of breath; on room air; bed at lowest position, side rails up x2, breaks engaged; restrain on both wrists; patient received lice treatment, will keep monitoring; will check blood sugar as scheduled. Call light within reach; will keep monitoring.
--- NOTE | 2018-08-03 07:16 | NUR ---
HAND-OFF: Report given to Tammie MADDEN.
[2018-08-03 08:21] LABS: BASOPHILS % (AUTO) 0.7 % (0.0-2.0); EOSINOPHILS % (AUTO) 7.5 % (0.0-3.0); HEMATOCRIT 33.5 % (37.0-47.0); LYMPHOCYTES % (AUTO) 24.1 % (20.0-45.0); MEAN CORPUSCULAR VOLUME 89 FL (80-99); NEUTROPHILS % (AUTO) 58.7 % (45.0-75.0); PLATELET COUNT 269 K/UL (150-450); RED BLOOD COUNT 3.75 M/UL (4.20-5.40); RED CELL DISTRIBUTION WIDTH 13.5 % (11.6-14.8); WHITE BLOOD COUNT 6.4 K/UL (4.8-10.8)
[2018-08-03 08:22] VITALS: BP 129/53
[2018-08-03] MEDS: OLANZapine 2.5mg tab ORAL SCH ×3 (08:52→17:06)
[2018-08-03] MEDS: Fluocinonide 15gm Cream TOPIC SCH (08:53)
[2018-08-03 09:04] LABS: ALANINE AMINOTRANSFERASE 12 U/L (12-78); ALBUMIN 2.8 G/DL (3.4-5.0); ALBUMIN/GLOBULIN RATIO 0.6 (1.0-2.7); ALKALINE PHOSPHATASE 77 U/L (46-116); ANION GAP 11 mmol/L (5-15); ASPARTATE AMINO TRANSFERASE 19 U/L (15-37); BILIRUBIN,TOTAL 0.5 MG/DL (0.2-1.0); BLOOD UREA NITROGEN 10 mg/dL (7-18); CALCIUM 8.7 MG/DL (8.5-10.1); CARBON DIOXIDE 19 MMOL/L (21-32); CHLORIDE 109 MMOL/L (98-107); CREATININE 1.1 MG/DL (0.55-1.30); PHOSPHORUS 3.7 MG/DL (2.5-4.9); SODIUM 139 MMOL/L (136-145)
--- NOTE | 2018-08-03 11:00 | General Progress Note ---
Assessment/Plan Problem List: (1) Acute metabolic encephalopathy ICD Codes: G93.41 - Metabolic encephalopathy SNOMED: 15387951, 087746420 (2) Alcohol dependence ICD Codes: F10.20 - Alcohol dependence, uncomplicated SNOMED: 67184115, [id number] Status: stable Assessment/Plan Zyprexa 5mg po tid Ativan prn cont restraints Subjective Neurologic/Psychiatric: Reports: anxiety, depressed Allergies: Coded Allergies: NO KNOWN DRUG ALLERGIES (Verified Allergy, Unknown, 06/09/17) Subjective the pt cont to have episodes of agitation Objective Last 24 Hour Vital Signs Date Time Temp Pulse Resp B/P (MAP) Pulse Ox O2 Delivery O2 Flow Rate FiO2 08/03/18 09:00 Room Air 08/03/18 08:53 66 129/53 08/03/18 08:22 97.6 66 19 129/53 (78) 97 08/03/18 04:00 98.0 59 18 123/54 (77) 94 08/03/18 00:00 99.1 73 18 135/61 (85) 99 08/02/18 21:00 Room Air 08/02/18 20:46 83 164/86 08/02/18 20:00 98.5 85 18 164/81 (108) 98 08/02/18 16:00 98.2 73 18 129/80 (96) 98 08/02/18 12:00 97.5 73 18 141/58 (85) 99 Intake and Output 08/02/18 08/03/18 18:59 06:59 Intake Total 1870 ml 470.0 ml Balance 1870 ml 470.0 ml Intake Oral 820 ml IV Total 1050 ml 470.0 ml # Voids 10 10 # Bowel Movements 3 3 Laboratory Tests 08/03/18 05:44: White Blood Count 6.4, Red Blood Count 3.75L, Hemoglobin 11.0L, Hematocrit 33.5L , Mean Corpuscular Volume 89, Mean Corpuscular Hemoglobin 29.2, Mean Corpuscular Hemoglobin Concent 32.7, Red Cell Distribution Width 13.5, Platelet Count 269, Mean Platelet Volume 6.4L, Neutrophils (%) (Auto) 58.7, Lymphocytes ( %) (Auto) 24.1, Monocytes (%) (Auto) 9.0, Eosinophils (%) (Auto) 7.5H, Basophils (%) (Auto) 0.7, Prothrombin Time 10.7, Prothromb Time International Ratio 1.0, Activated Partial Thromboplast Time 29, Sodium Level 139, Potassium Level 4.0, Chloride Level 109H, Carbon Dioxide Level 19L, Anion Gap 11, Blood Urea Nitrogen 10, Creatinine 1.1, Estimat Glomerular Filtration Rate , Glucose Level 88, Calcium Level 8.7, Phosphorus Level 3.7, Magnesium Level 1.9, Total Bilirubin 0.5, Aspartate Amino Transf (AST/SGOT) 19, Alanine Aminotransferase ( ALT/SGPT) 12, Alkaline Phosphatase 77, Total Protein 7.3, Albumin 2.8L, Globulin 4.5, Albumin/Globulin Ratio 0.6L Height (Feet): 5 Height (Inches): 0.00 Weight (Pounds): 151 General Appearance: no apparent distress, alert Neurologic: disoriented, depressed affect Tip Frazier MD Aug 03, 2018 11:00
[2018-08-03 12:00] VITALS: BP 144/77
--- NOTE | 2018-08-03 12:25 | Internal Med Progress Note ---
Subjective Date of Service: Aug 03, 2018 Physician Name Rhys Yousif Attending Physician Ari Mckeon MD Current Medications Medications (Trade) Dose Ordered Sig/Kannan Route PRN Reason Start Time Stop Time Status Last Admin Dose Admin Acetaminophen (Tylenol) 650 mg Q6H PRN ORAL Mild Pain/Temp > 100.5 07/29/18 07:00 08/28/18 06:59 Acetaminophen/ Hydrocodone Bitart ([place] 5/325) 1 tab Q6H PRN ORAL Moderate Pain (Pain Scale 4-6) 07/29/18 07:00 08/05/18 06:59 07/31/18 22:24 Carvedilol (Coreg) 3.125 mg EVERY 12 HOURS ORAL 07/29/18 09:00 08/28/18 08:59 08/03/18 08:53 Dextrose (Dextrose 50%) 25 ml Q30M PRN IV Hypoglycemia 07/29/18 07:00 08/28/18 06:59 Dextrose (Dextrose 50%) 50 ml Q30M PRN IV Hypoglycemia 07/29/18 07:00 08/28/18 06:59 Famotidine (Pepcid) 20 mg DAILY ORAL 07/29/18 09:00 08/28/18 08:59 08/03/18 08:53 Fluocinonide (Lidex) 1 applic DAILY TOPIC 07/29/18 10:00 08/28/18 09:59 08/03/18 08:53 Gabapentin (Neurontin) 300 mg BEDTIME ORAL 07/29/18 21:00 08/28/18 20:59 08/02/18 20:38 Insulin Aspart (NovoLOG) BEFORE MEALS AND HS SUBQ 07/29/18 11:30 08/28/18 11:29 08/03/18 12:12 Iron Sucrose 100 mg/Sodium Chloride 60 ml @ 240 mls/hr BEDTIME IV 08/01/18 21:00 08/05/18 21:14 08/02/18 21:00 Lorazepam (Ativan) 2 mg Q6H PRN ORAL For Anxiety 08/01/18 12:15 08/08/18 12:14 08/02/18 09:18 Morphine Sulfate (Morphine Sulfate) 2 mg Q4H PRN IVP Severe Pain (Pain Scale 7-10) 07/29/18 07:00 08/05/18 06:59 Olanzapine (ZyPREXA) 2.5 mg TID ORAL 08/01/18 13:00 08/31/18 12:59 08/03/18 12:09 Ondansetron HCl (Zofran) 4 mg Q4H PRN IVP Nausea & Vomiting 07/29/18 07:00 08/28/18 06:59 Piperacillin Sod/ Tazobactam Sod 3.375 gm/Sodium Chloride 110 ml @ 27.5 mls/hr Q8H IVPB 07/31/18 17:00 08/07/18 16:59 08/03/18 08:53 Sodium Chloride 1,000 ml @ 150 mls/hr Q6H40M IV 07/29/18 13:00 08/28/18 12:59 08/03/18 12:09 Allergies: Coded Allergies: NO KNOWN DRUG ALLERGIES (Verified Allergy, Unknown, 06/09/17) ROS Limited/Unobtainable: No Constitutional: Reports: no symptoms HEENT: Reports: no symptoms Cardiovascular: Reports: no symptoms Respiratory: Reports: no symptoms Gastrointestinal/Abdominal: Reports: no symptoms Genitourinary: Reports: no symptoms Neurologic/Psychiatric: Reports: no symptoms Subjective 73 YO F admitted with post menopausal vaginal bleeding. Now severe anemia. Cover for Int Med-Dr Mckeon. Await cardiology clearance for endometrial biopsy under anesthesia Objective Last Vital Signs Date Time Temp Pulse Resp B/P (MAP) Pulse Ox O2 Delivery O2 Flow Rate FiO2 08/03/18 09:00 Room Air 08/03/18 08:53 66 129/53 08/03/18 08:22 97.6 19 97 Laboratory Tests Test 08/03/18 05:44 White Blood Count 6.4 K/UL (4.8-10.8) Red Blood Count 3.75 M/UL (4.20-5.40) L Hemoglobin 11.0 G/DL (12.0-16.0) L Hematocrit 33.5 % (37.0-47.0) L Mean Corpuscular Volume 89 FL (80-99) Mean Corpuscular Hemoglobin 29.2 PG (27.0-31.0) Mean Corpuscular Hemoglobin Concent 32.7 G/DL (32.0-36.0) Red Cell Distribution Width 13.5 % (11.6-14.8) Platelet Count 269 K/UL (150-450) Mean Platelet Volume 6.4 FL (6.5-10.1) L Neutrophils (%) (Auto) 58.7 % (45.0-75.0) Lymphocytes (%) (Auto) 24.1 % (20.0-45.0) Monocytes (%) (Auto) 9.0 % (1.0-10.0) Eosinophils (%) (Auto) 7.5 % (0.0-3.0) H Basophils (%) (Auto) 0.7 % (0.0-2.0) Prothrombin Time 10.7 SEC (9.30-11.50) Prothromb Time International Ratio 1.0 (0.9-1.1) Activated Partial Thromboplast Time 29 SEC (23-33) Sodium Level 139 MMOL/L (136-145) Potassium Level 4.0 MMOL/L (3.5-5.1) Chloride Level 109 MMOL/L (98-107) H Carbon Dioxide Level 19 MMOL/L (21-32) L Anion Gap 11 mmol/L (5-15) Blood Urea Nitrogen 10 mg/dL (7-18) Creatinine 1.1 MG/DL (0.55-1.30) Estimat Glomerular Filtration Rate mL/min (>60) Glucose Level 88 MG/DL (74-106) Calcium Level 8.7 MG/DL (8.5-10.1) Phosphorus Level 3.7 MG/DL (2.5-4.9) Magnesium Level 1.9 MG/DL (1.8-2.4) Total Bilirubin 0.5 MG/DL (0.2-1.0) Aspartate Amino Transf (AST/SGOT) 19 U/L (15-37) Alanine Aminotransferase (ALT/SGPT) 12 U/L (12-78) Alkaline Phosphatase 77 U/L (46-116) Total Protein 7.3 G/DL (6.4-8.2) Albumin 2.8 G/DL (3.4-5.0) L Globulin 4.5 g/dL Albumin/Globulin Ratio 0.6 (1.0-2.7) L Intake and Output 08/02/18 08/03/18 19:00 07:00 Intake Total 1720 ml 470.0 ml Balance 1720 ml 470.0 ml Intake Oral 820 ml IV Total 900 ml 470.0 ml # Voids 10 10 # Bowel Movements 3 3 Objective PHYSICAL EXAMINATION: GENERAL: The patient is a well-developed and well-nourished female, in no apparent distress. HEENT: Eyes - pupils are equal and responsive to light and accommodation. Extraocular movements are intact. NECK: Supple without lymphadenopathy. CHEST: Lungs are clear to auscultation bilaterally without wheezes or rales. CARDIOVASCULAR: Regular rhythm and rate. S1 and S2 are normal without murmurs, rubs, or gallops. ABDOMEN: Soft, nontender, and nondistended. Positive bowel sounds. No evidence of hepatosplenomegaly. Currently, no rebound or guarding noted. EXTREMITIES: Negative for clubbing, cyanosis, or edema. RECTAL/GENITAL: Refused. NEUROLOGIC: Cranial nerves II through XII are grossly intact without focal deficits. Motor strength is 5/5 bilaterally. Deep tendon reflexes are 2+ Assessment/Plan Assessment/Plan ASSESSMENT: This is a 73-year-old female. 1. Postmenopausal vaginal bleeding. 2. Probable endometrial cancer versus endometrial hyperplasia. 3. Pelvic pain. 4. Diabetes type 2. 5. Hypercholesterolemia. 6. Severe anemia-blood loss 7. Agitation TREATMENT: 1. Postmenopausal vaginal bleeding/endometrial hyperplasia. A CRTS consultation has been obtained with Dr. Torrez. We will follow recommendations of CRTS. The patient will require an endometrial biopsy under anesthesia during this hospitalization-see CRTS note. A cardiology consult has been obtained with Dr Shaw for clearance for surgery. An Oncology consultation with Dr. Cruzito Willson. 2. Diabetes type 2. Regular insulin sliding scale has been instituted. 3. Hypercholesterolemia. Continue Lipitor as above. 4. Hypertension. Continue Coreg as above. 5. S/P Transfusion 2 unit PRBC per heme/onc-Dr Willson 6. Ativan PRN; see psych consult 7. await cardiology clearance for surgery Rhys Yousif MD Aug 03, 2018 12:25
--- NOTE | 2018-08-03 12:54 | Pulmonology Progress Note ---
Assessment/Plan Problems: (1) Uterine malignancy (2) Anemia (3) UTI (urinary tract infection) (4) Abnormal vaginal bleeding (5) Diabetes mellitus (6) Incontinence Assessment/Plan all reviewed prbc again, Hem is 8 SILVER BUFFER reviewed sliding scale echo and CXR reviewed Cardiology consult requested Subjective ROS Limited/Unobtainable: No Constitutional: Reports: no symptoms HEENT: Repors: no symptoms Respiratory: Reports: no symptoms Allergies: Coded Allergies: NO KNOWN DRUG ALLERGIES (Verified Allergy, Unknown, 06/09/17) Objective Last 24 Hour Vital Signs Date Time Temp Pulse Resp B/P (MAP) Pulse Ox O2 Delivery O2 Flow Rate FiO2 08/03/18 12:00 97.3 71 20 144/77 (99) 98 08/03/18 09:00 Room Air 08/03/18 08:53 66 129/53 08/03/18 08:22 97.6 66 19 129/53 (78) 97 08/03/18 04:00 98.0 59 18 123/54 (77) 94 08/03/18 00:00 99.1 73 18 135/61 (85) 99 08/02/18 21:00 Room Air 08/02/18 20:46 83 164/86 08/02/18 20:00 98.5 85 18 164/81 (108) 98 08/02/18 16:00 98.2 73 18 129/80 (96) 98 Intake and Output 08/02/18 08/03/18 19:00 07:00 Intake Total 1720 ml 470.0 ml Balance 1720 ml 470.0 ml Intake Oral 820 ml IV Total 900 ml 470.0 ml # Voids 10 10 # Bowel Movements 3 3 Objective General Appearance: WD/WN HEENT: normocephalic, atraumatic Respiratory/Chest: chest wall non-tender, lungs clear Cardiovascular: normal peripheral pulses, normal rate Abdomen: normal bowel sounds, soft, non tender Extremities: no cyanosis Skin: no ulcers Laboratory Tests 08/03/18 05:44: White Blood Count 6.4, Red Blood Count 3.75L, Hemoglobin 11.0L, Hematocrit 33.5L , Mean Corpuscular Volume 89, Mean Corpuscular Hemoglobin 29.2, Mean Corpuscular Hemoglobin Concent 32.7, Red Cell Distribution Width 13.5, Platelet Count 269, Mean Platelet Volume 6.4L, Neutrophils (%) (Auto) 58.7, Lymphocytes ( %) (Auto) 24.1, Monocytes (%) (Auto) 9.0, Eosinophils (%) (Auto) 7.5H, Basophils (%) (Auto) 0.7, Prothrombin Time 10.7, Prothromb Time International Ratio 1.0, Activated Partial Thromboplast Time 29, Sodium Level 139, Potassium Level 4.0, Chloride Level 109H, Carbon Dioxide Level 19L, Anion Gap 11, Blood Urea Nitrogen 10, Creatinine 1.1, Estimat Glomerular Filtration Rate , Glucose Level 88, Calcium Level 8.7, Phosphorus Level 3.7, Magnesium Level 1.9, Total Bilirubin 0.5, Aspartate Amino Transf (AST/SGOT) 19, Alanine Aminotransferase ( ALT/SGPT) 12, Alkaline Phosphatase 77, Total Protein 7.3, Albumin 2.8L, Globulin 4.5, Albumin/Globulin Ratio 0.6L Current Medications Medications (Trade) Dose Ordered Sig/Kannan Route PRN Reason Start Time Stop Time Status Last Admin Dose Admin Acetaminophen (Tylenol) 650 mg Q6H PRN ORAL Mild Pain/Temp > 100.5 07/29/18 07:00 08/28/18 06:59 Acetaminophen/ Hydrocodone Bitart ([place] 5/325) 1 tab Q6H PRN ORAL Moderate Pain (Pain Scale 4-6) 07/29/18 07:00 08/05/18 06:59 07/31/18 22:24 Carvedilol (Coreg) 3.125 mg EVERY 12 HOURS ORAL 07/29/18 09:00 08/28/18 08:59 08/03/18 08:53 Dextrose (Dextrose 50%) 25 ml Q30M PRN IV Hypoglycemia 07/29/18 07:00 08/28/18 06:59 Dextrose (Dextrose 50%) 50 ml Q30M PRN IV Hypoglycemia 07/29/18 07:00 08/28/18 06:59 Famotidine (Pepcid) 20 mg DAILY ORAL 07/29/18 09:00 08/28/18 08:59 08/03/18 08:53 Fluocinonide (Lidex) 1 applic DAILY TOPIC 07/29/18 10:00 08/28/18 09:59 08/03/18 08:53 Gabapentin (Neurontin) 300 mg BEDTIME ORAL 07/29/18 21:00 08/28/18 20:59 08/02/18 20:38 Insulin Aspart (NovoLOG) BEFORE MEALS AND HS SUBQ 07/29/18 11:30 08/28/18 11:29 08/03/18 12:12 Iron Sucrose 100 mg/Sodium Chloride 60 ml @ 240 mls/hr BEDTIME IV 08/01/18 21:00 08/05/18 21:14 08/02/18 21:00 Lorazepam (Ativan) 2 mg Q6H PRN ORAL For Anxiety 08/01/18 12:15 08/08/18 12:14 08/02/18 09:18 Morphine Sulfate (Morphine Sulfate) 2 mg Q4H PRN IVP Severe Pain (Pain Scale 7-10) 07/29/18 07:00 08/05/18 06:59 Olanzapine (ZyPREXA) 2.5 mg TID ORAL 08/01/18 13:00 08/31/18 12:59 08/03/18 12:09 Ondansetron HCl (Zofran) 4 mg Q4H PRN IVP Nausea & Vomiting 07/29/18 07:00 08/28/18 06:59 Piperacillin Sod/ Tazobactam Sod 3.375 gm/Sodium Chloride 110 ml @ 27.5 mls/hr Q8H IVPB 07/31/18 17:00 08/07/18 16:59 08/03/18 08:53 Sodium Chloride 1,000 ml @ 150 mls/hr Q6H40M IV 07/29/18 13:00 08/28/18 12:59 08/03/18 12:09 Oscar Quezada MD Aug 03, 2018 12:54
[2018-08-03] MEDS: LORazepam 1mg tab ORAL PRN (13:30)
--- NOTE | 2018-08-03 14:35 | NUR ---
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 VAGINAL BLEEDING . UTERINE TUMOR . R/O ACUTE UTERINE CARCINOMA VS: BP 144/77, P 59, T 97.3, RR 18, SpO2 94 RBC 3.75, Hgb 11.0, Hct 33.5, CO2 19, Chloride 109, Albumin 2.8 IS: COREG 3.125mg LIDEX NOVOLOG NS IV x1L PEPCID 20mg PIPERACILLIN 110ml ZYPREXA 2.5 mg GABAPENTIN 300mg ATIVAN 2mg MED/SURG STATUS
[2018-08-03 16:00] VITALS: BP 139/80
--- NOTE | 2018-08-03 16:03 | General Progress Note ---
Assessment/Plan Assessment/Plan ASSESSMENT: # Endometrial thickening, concerning for infection or neoplasm given findings on recent CT scan, with Postmenopausal vaginal bleeding/endometrial hyperplasia, A WOODS SUPERINTENDENT consultation has been obtained --> appreciate AIRPLANE RIGGER recs --> need tissue pathology --> imaging has been reviewed # Anemia of iron deficiency --> Anemia workup has been reviewed, Ferritin 13 --> No evidence of hemolysis is noted, peripheral smear has been reviewed. --> Hgb goal >7. Transfuse prn. --> Medications have been reviewed --> HGB trend: 8--> 7->6.8-->8-->10->11 ==> started on iv iron 100mg iv daily x 5 days # Leukocytosis/Elevated white blood cell count, unspecified likely related to underlying stress reaction, smoking, or underlying infection (especially if bandemia is noted) --> have reviewed peripheral smear and bandemia/neutrophilia noted --> continue antibiotics if they have been started by ID team --> monitor for resolution # Pelvic pain. # Diabetes type 2, regular insulin sliding scale has been instituted. # Hypercholesterolemia, Continue Lipitor as above The timing of this note does not necessarily reflect the time of the patient was seen. Greatly appreciate consultation! Subjective Constitutional: Denies: no symptoms, chills, diaphoresis, fever, malaise, weakness, other HEENT: Denies: no symptoms, eye pain, blurred vision, tearing, double vision, ear pain, ear discharge, nose pain, nose congestion, throat pain, throat swelling, mouth pain, mouth swelling, other Cardiovascular: Denies: no symptoms, chest pain, edema, irregular heart rate, lightheadedness, palpitations, syncope, other Gastrointestinal/Abdominal: Denies: no symptoms, abdomen distended, abdominal pain, black stools, tarry stools, blood in stool, constipated, diarrhea, difficulty swallowing, nausea, poor appetite, poor fluid intake, rectal bleeding , vomiting, other Genitourinary: Denies: no symptoms, burning, discharge, frequency, flank pain, hematuria, incontinence, pain, urgency, other Neurologic/Psychiatric: Denies: no symptoms, anxiety, depressed, emotional problems, headache, numbness, paresthesia, pre-existing deficit, seizure, tingling, tremors, weakness, other Endocrine: Denies: no symptoms, excessive sweating, flushing, intolerance to cold, intolerance to heat, increased hunger, increased thirst, increased urine, unexplained weight gain, unexplained weight loss, other Allergies: Coded Allergies: NO KNOWN DRUG ALLERGIES (Verified Allergy, Unknown, 06/09/17) Subjective 07/31: Seen by bedside, hgb 6.8, will receive prbc, Awaiting WOODS SUPERINTENDENT consult. 08/01: Pt is awake, comfortable, no events reported, hgb 8 08/02: awake, comfortable, no acute distress reported. 08/03: seen resting in bed, echo and CXR reviewed, no events Objective Last 24 Hour Vital Signs Date Time Temp Pulse Resp B/P (MAP) Pulse Ox O2 Delivery O2 Flow Rate FiO2 08/03/18 12:00 97.3 71 20 144/77 (99) 98 08/03/18 09:00 Room Air 08/03/18 08:53 66 129/53 08/03/18 08:22 97.6 66 19 129/53 (78) 97 08/03/18 04:00 98.0 59 18 123/54 (77) 94 08/03/18 00:00 99.1 73 18 135/61 (85) 99 08/02/18 21:00 Room Air 08/02/18 20:46 83 164/86 08/02/18 20:00 98.5 85 18 164/81 (108) 98 Intake and Output 08/02/18 08/03/18 18:59 06:59 Intake Total 1870 ml 470.0 ml Balance 1870 ml 470.0 ml Intake Oral 820 ml IV Total 1050 ml 470.0 ml # Voids 10 10 # Bowel Movements 3 3 Laboratory Tests 08/03/18 05:44: White Blood Count 6.4, Red Blood Count 3.75L, Hemoglobin 11.0L, Hematocrit 33.5L , Mean Corpuscular Volume 89, Mean Corpuscular Hemoglobin 29.2, Mean Corpuscular Hemoglobin Concent 32.7, Red Cell Distribution Width 13.5, Platelet Count 269, Mean Platelet Volume 6.4L, Neutrophils (%) (Auto) 58.7, Lymphocytes ( %) (Auto) 24.1, Monocytes (%) (Auto) 9.0, Eosinophils (%) (Auto) 7.5H, Basophils (%) (Auto) 0.7, Prothrombin Time 10.7, Prothromb Time International Ratio 1.0, Activated Partial Thromboplast Time 29, Sodium Level 139, Potassium Level 4.0, Chloride Level 109H, Carbon Dioxide Level 19L, Anion Gap 11, Blood Urea Nitrogen 10, Creatinine 1.1, Estimat Glomerular Filtration Rate , Glucose Level 88, Calcium Level 8.7, Phosphorus Level 3.7, Magnesium Level 1.9, Total Bilirubin 0.5, Aspartate Amino Transf (AST/SGOT) 19, Alanine Aminotransferase ( ALT/SGPT) 12, Alkaline Phosphatase 77, Total Protein 7.3, Albumin 2.8L, Globulin 4.5, Albumin/Globulin Ratio 0.6L Height (Feet): 5 Height (Inches): 0.00 Weight (Pounds): 151 Objective PHYSICAL EXAMINATION: VITAL SIGNS: Reviewed GENERAL: The patient is a well-developed and well-nourished female, in no apparent distress. HEENT: Eyes - pupils are equal and responsive to light and accommodation. Extraocular movements are intact. NECK: Supple without lymphadenopathy. CHEST: Lungs are clear to auscultation bilaterally without wheezes or rales. CARDIOVASCULAR: Regular rhythm and rate. S1 and S2 are normal without murmurs , rubs, or gallops. ABDOMEN: Soft, nontender, and nondistended. Positive bowel sounds. No evidence of hepatosplenomegaly. Currently, no rebound or guarding noted. EXTREMITIES: Negative for clubbing, cyanosis, or edema. NEUROLOGIC: Cranial nerves II through XII are grossly intact without focal deficits. Motor strength is 5/5 bilaterally. Deep tendon reflexes are 2+ plantar. Cruzito Willson MD Aug 03, 2018 16:03
--- NOTE | 2018-08-03 16:06 | General Progress Note ---
Assessment/Plan Assessment/Plan ASSESSMENT: # Endometrial thickening, concerning for infection or neoplasm given findings on recent CT scan, with Postmenopausal vaginal bleeding/endometrial hyperplasia, A CDL TRUCK DRIVER consultation has been obtained --> appreciate PROFESSOR OF LITERATURE recs --> need tissue pathology --> imaging has been reviewed # Anemia of iron deficiency --> Anemia workup has been reviewed, Ferritin 13 --> No evidence of hemolysis is noted, peripheral smear has been reviewed. --> Hgb goal >7. Transfuse prn. --> Medications have been reviewed --> HGB trend: 8--> 7->6.8-->8-->10->11 ==> started on iv iron 100mg iv daily x 5 days # Leukocytosis/Elevated white blood cell count, unspecified likely related to underlying stress reaction, smoking, or underlying infection (especially if bandemia is noted) --> have reviewed peripheral smear and bandemia/neutrophilia noted --> continue antibiotics if they have been started by ID team --> monitor for resolution # Pelvic pain. # Diabetes type 2, regular insulin sliding scale has been instituted. # Hypercholesterolemia, Continue Lipitor as above The timing of this note does not necessarily reflect the time of the patient was seen. Greatly appreciate consultation! Subjective Allergies: Coded Allergies: NO KNOWN DRUG ALLERGIES (Verified Allergy, Unknown, 06/09/17) Subjective 07/31: Seen by bedside, hgb 6.8, will receive prbc, Awaiting CDL TRUCK DRIVER consult. 08/01: Pt is awake, comfortable, no events reported, hgb 8 08/02: awake, comfortable, no acute distress reported. 08/03: seen resting in bed, echo and CXR reviewed, no events, Await cardiology clearance for endometrial biopsy under anesthesia Objective Last 24 Hour Vital Signs Date Time Temp Pulse Resp B/P (MAP) Pulse Ox O2 Delivery O2 Flow Rate FiO2 08/03/18 12:00 97.3 71 20 144/77 (99) 98 08/03/18 09:00 Room Air 08/03/18 08:53 66 129/53 08/03/18 08:22 97.6 66 19 129/53 (78) 97 08/03/18 04:00 98.0 59 18 123/54 (77) 94 08/03/18 00:00 99.1 73 18 135/61 (85) 99 08/02/18 21:00 Room Air 08/02/18 20:46 83 164/86 08/02/18 20:00 98.5 85 18 164/81 (108) 98 Intake and Output 08/02/18 08/03/18 18:59 06:59 Intake Total 1870 ml 470.0 ml Balance 1870 ml 470.0 ml Intake Oral 820 ml IV Total 1050 ml 470.0 ml # Voids 10 10 # Bowel Movements 3 3 Laboratory Tests 08/03/18 05:44: White Blood Count 6.4, Red Blood Count 3.75L, Hemoglobin 11.0L, Hematocrit 33.5L , Mean Corpuscular Volume 89, Mean Corpuscular Hemoglobin 29.2, Mean Corpuscular Hemoglobin Concent 32.7, Red Cell Distribution Width 13.5, Platelet Count 269, Mean Platelet Volume 6.4L, Neutrophils (%) (Auto) 58.7, Lymphocytes ( %) (Auto) 24.1, Monocytes (%) (Auto) 9.0, Eosinophils (%) (Auto) 7.5H, Basophils (%) (Auto) 0.7, Prothrombin Time 10.7, Prothromb Time International Ratio 1.0, Activated Partial Thromboplast Time 29, Sodium Level 139, Potassium Level 4.0, Chloride Level 109H, Carbon Dioxide Level 19L, Anion Gap 11, Blood Urea Nitrogen 10, Creatinine 1.1, Estimat Glomerular Filtration Rate , Glucose Level 88, Calcium Level 8.7, Phosphorus Level 3.7, Magnesium Level 1.9, Total Bilirubin 0.5, Aspartate Amino Transf (AST/SGOT) 19, Alanine Aminotransferase ( ALT/SGPT) 12, Alkaline Phosphatase 77, Total Protein 7.3, Albumin 2.8L, Globulin 4.5, Albumin/Globulin Ratio 0.6L Height (Feet): 5 Height (Inches): 0.00 Weight (Pounds): 151 Objective PHYSICAL EXAMINATION: VITAL SIGNS: Reviewed GENERAL: The patient is a well-developed and well-nourished female, in no apparent distress. HEENT: Eyes - pupils are equal and responsive to light and accommodation. Extraocular movements are intact. NECK: Supple without lymphadenopathy. CHEST: Lungs are clear to auscultation bilaterally without wheezes or rales. CARDIOVASCULAR: Regular rhythm and rate. S1 and S2 are normal without murmurs , rubs, or gallops. ABDOMEN: Soft, nontender, and nondistended. Positive bowel sounds. No evidence of hepatosplenomegaly. Currently, no rebound or guarding noted. EXTREMITIES: Negative for clubbing, cyanosis, or edema. NEUROLOGIC: Cranial nerves II through XII are grossly intact without focal deficits. Motor strength is 5/5 bilaterally. Deep tendon reflexes are 2+ plantar. Cruzito Willson MD Aug 03, 2018 16:06
--- NOTE | 2018-08-03 16:56 | Cardiology Progress Note ---
Assessment/Plan Status: stable Assessment/Plan Echo reviewed, normal LV function, diastolic dysfunction and pulmonary hypertension Begin diuresis to lower filling pressures hypertension continue coreg Hyperlipidemia continue atorvastatin outpatient stress test given cardiac risk factors Subjective Cardiovascular: Reports: no symptoms Respiratory: Reports: no symptoms Gastrointestinal/Abdominal: Reports: no symptoms Genitourinary: Reports: no symptoms Subjective Coverage for [place] Objective Last 24 Hour Vital Signs Date Time Temp Pulse Resp B/P (MAP) Pulse Ox O2 Delivery O2 Flow Rate FiO2 08/03/18 16:00 97.8 76 19 139/80 (99) 98 08/03/18 12:00 97.3 71 20 144/77 (99) 98 08/03/18 09:00 Room Air 08/03/18 08:53 66 129/53 08/03/18 08:22 97.6 66 19 129/53 (78) 97 08/03/18 04:00 98.0 59 18 123/54 (77) 94 08/03/18 00:00 99.1 73 18 135/61 (85) 99 08/02/18 21:00 Room Air 08/02/18 20:46 83 164/86 08/02/18 20:00 98.5 85 18 164/81 (108) 98 General Appearance: no apparent distress, alert, mild distress EENT: PERRL/EOMI, normal ENT inspection, TMs normal Neck: non-tender, normal alignment, supple, normal inspection, no JVD Rhythm: NSR Cardiovascular: normal peripheral pulses, normal rate, regular rhythm Respiratory/Chest: chest wall non-tender, lungs clear, normal breath sounds Abdomen: normal bowel sounds, non tender, soft Extremities: normal range of motion, non-tender, normal inspection Neurologic: rodding anode worker II-XII grossly normal, no motor/sensory deficits Intake and Output 08/02/18 08/03/18 18:59 06:59 Intake Total 1870 ml 470.0 ml Balance 1870 ml 470.0 ml Intake Oral 820 ml IV Total 1050 ml 470.0 ml # Voids 10 10 # Bowel Movements 3 3 Laboratory Tests Test 08/03/18 05:44 White Blood Count 6.4 K/UL (4.8-10.8) Red Blood Count 3.75 M/UL (4.20-5.40) L Hemoglobin 11.0 G/DL (12.0-16.0) L Hematocrit 33.5 % (37.0-47.0) L Mean Corpuscular Volume 89 FL (80-99) Mean Corpuscular Hemoglobin 29.2 PG (27.0-31.0) Mean Corpuscular Hemoglobin Concent 32.7 G/DL (32.0-36.0) Red Cell Distribution Width 13.5 % (11.6-14.8) Platelet Count 269 K/UL (150-450) Mean Platelet Volume 6.4 FL (6.5-10.1) L Neutrophils (%) (Auto) 58.7 % (45.0-75.0) Lymphocytes (%) (Auto) 24.1 % (20.0-45.0) Monocytes (%) (Auto) 9.0 % (1.0-10.0) Eosinophils (%) (Auto) 7.5 % (0.0-3.0) H Basophils (%) (Auto) 0.7 % (0.0-2.0) Prothrombin Time 10.7 SEC (9.30-11.50) Prothromb Time International Ratio 1.0 (0.9-1.1) Activated Partial Thromboplast Time 29 SEC (23-33) Sodium Level 139 MMOL/L (136-145) Potassium Level 4.0 MMOL/L (3.5-5.1) Chloride Level 109 MMOL/L (98-107) H Carbon Dioxide Level 19 MMOL/L (21-32) L Anion Gap 11 mmol/L (5-15) Blood Urea Nitrogen 10 mg/dL (7-18) Creatinine 1.1 MG/DL (0.55-1.30) Estimat Glomerular Filtration Rate mL/min (>60) Glucose Level 88 MG/DL (74-106) Calcium Level 8.7 MG/DL (8.5-10.1) Phosphorus Level 3.7 MG/DL (2.5-4.9) Magnesium Level 1.9 MG/DL (1.8-2.4) Total Bilirubin 0.5 MG/DL (0.2-1.0) Aspartate Amino Transf (AST/SGOT) 19 U/L (15-37) Alanine Aminotransferase (ALT/SGPT) 12 U/L (12-78) Alkaline Phosphatase 77 U/L (46-116) Total Protein 7.3 G/DL (6.4-8.2) Albumin 2.8 G/DL (3.4-5.0) L Globulin 4.5 g/dL Albumin/Globulin Ratio 0.6 (1.0-2.7) L Ethan Snell MD Aug 03, 2018 16:56
--- NOTE | 2018-08-03 19:40 | NUR ---
NURSE NOTES: Received report from MARYANNE Guzman. Patient sleeping. Bilateral soft wrist restraints on. IV intact, patent, and infusing IV fluids. Bed in lowest position with call light in reach. Will continue with plan of care.
--- NOTE | 2018-08-03 19:43 | NUR ---
HAND-OFF: Report given to MARYANNE [place].
[2018-08-03 20:00] VITALS: BP 140/65
[2018-08-03] MEDS ORDERED: Lice Treatment Shampoo 4oz Bottle TOPIC ONE (21:00)
[2018-08-03] MEDS: Iron Sucrose 100 MG in NS 55 ML IV SCH (21:32)
--- NOTE | 2018-08-03 22:00 | NUR ---
NURSE NOTES: Patient still being impulsive and attempting to pull out IV and get out of bed. Restraints have been prolonged. 72 hour intervention has been done, charge nurse aware.
[2018-08-04] VITALS: BP 149/78
[2018-08-04] MEDS: Zoysn 3.37gm in NS 100ML IVPB SCH ×3 (01:00→17:15)
[2018-08-04] MEDS: HYDROcodone/Acetamin 5/325 tab ORAL PRN (01:18)
[2018-08-04 04:00] VITALS: BP 146/69
[2018-08-04] MEDS: NovoLOG Insulin Flexpen SUBQ SCH ×4 (06:23→21:43)
[2018-08-04 06:59] LABS: BASOPHILS % (AUTO) 0.6 % (0.0-2.0); EOSINOPHILS % (AUTO) 4.9 % (0.0-3.0); HEMATOCRIT 31.1 % (37.0-47.0); HEMOGLOBIN 10.4 G/DL (12.0-16.0); LYMPHOCYTES % (AUTO) 21.6 % (20.0-45.0); MEAN CORPUSCULAR VOLUME 88 FL (80-99); MONOCYTES % (AUTO) 8.9 % (1.0-10.0); PLATELET COUNT 277 K/UL (150-450); RED BLOOD COUNT 3.51 M/UL (4.20-5.40); RED CELL DISTRIBUTION WIDTH 13.1 % (11.6-14.8); WHITE BLOOD COUNT 8.2 K/UL (4.8-10.8)
[2018-08-04 07:20] LABS: ANION GAP 8 mmol/L (5-15); BLOOD UREA NITROGEN 9 mg/dL (7-18); CALCIUM 8.5 MG/DL (8.5-10.1); CARBON DIOXIDE 22 MMOL/L (21-32); CHLORIDE 110 MMOL/L (98-107); POTASSIUM 3.9 MMOL/L (3.5-5.1); SODIUM 140 MMOL/L (136-145)
--- NOTE | 2018-08-04 07:29 | NUR ---
HAND-OFF: Report given to MARYANNE March.
--- NOTE | 2018-08-04 07:45 | NUR ---
NURSE NOTES: received report from MARYANNE Kay. patient in bed. alert, verbally responsive. no respiratory distress noted. no c/o pain at this time. contact isolation d/t lice. bed in the lowest position. alarm on. soft restraint on both arm. will continue to monitor,.
[2018-08-04 08:00] VITALS: BP 116/83
[2018-08-04] MEDS: OLANZapine 2.5mg tab ORAL SCH ×3 (09:17→17:17)
[2018-08-04] MEDS: Fluocinonide 15gm Cream TOPIC SCH (09:19)
[2018-08-04] MEDS: LORazepam 1mg tab ORAL PRN (10:40)
[2018-08-04 12:00] VITALS: BP 119/79
--- NOTE | 2018-08-04 12:59 | Pulmonology Progress Note ---
Assessment/Plan Problems: (1) Uterine malignancy (2) Anemia (3) UTI (urinary tract infection) (4) Abnormal vaginal bleeding (5) Diabetes mellitus (6) Incontinence Assessment/Plan all reviewed prbc again, Hem is 8 METAL PICKLING EQUIPMENT OPERATOR reviewed sliding scale echo and CXR reviewed Cardiology consult requested,pending clearance for surgery Subjective ROS Limited/Unobtainable: No Constitutional: Reports: no symptoms HEENT: Repors: no symptoms Respiratory: Reports: no symptoms Allergies: Coded Allergies: NO KNOWN DRUG ALLERGIES (Verified Allergy, Unknown, 06/09/17) Objective Last 24 Hour Vital Signs Date Time Temp Pulse Resp B/P (MAP) Pulse Ox O2 Delivery O2 Flow Rate FiO2 08/04/18 09:17 81 116/83 08/04/18 09:00 Room Air 08/04/18 08:00 98.2 81 20 116/83 (94) 99 08/04/18 04:00 97.6 78 20 146/69 (94) 97 08/04/18 00:00 96.8 78 20 149/78 (101) 93 08/03/18 21:31 64 140/65 08/03/18 21:00 Room Air 08/03/18 20:00 98.4 64 24 140/65 (90) 95 08/03/18 16:00 97.8 76 19 139/80 (99) 98 Intake and Output 08/03/18 08/04/18 19:00 07:00 Intake Total 1857.5 ml 387.5 ml Balance 1857.5 ml 387.5 ml Intake Oral 820 ml IV Total 1037.5 ml 387.5 ml # Voids 6 2 # Bowel Movements 1 Objective General Appearance: WD/WN HEENT: normocephalic, atraumatic Respiratory/Chest: chest wall non-tender, lungs clear Cardiovascular: normal peripheral pulses, normal rate Abdomen: normal bowel sounds, soft, non tender Extremities: no cyanosis Skin: no ulcers Laboratory Tests 08/04/18 06:15: White Blood Count 8.2, Red Blood Count 3.51L, Hemoglobin 10.4L, Hematocrit 31.1L , Mean Corpuscular Volume 88, Mean Corpuscular Hemoglobin 29.5, Mean Corpuscular Hemoglobin Concent 33.3, Red Cell Distribution Width 13.1, Platelet Count 277, Mean Platelet Volume 6.5, Neutrophils (%) (Auto) 64.0, Lymphocytes (% ) (Auto) 21.6, Monocytes (%) (Auto) 8.9, Eosinophils (%) (Auto) 4.9H, Basophils (%) (Auto) 0.6, Sodium Level 140, Potassium Level 3.9, Chloride Level 110H, Carbon Dioxide Level 22, Anion Gap 8, Blood Urea Nitrogen 9, Creatinine 1.0, Estimat Glomerular Filtration Rate , Glucose Level 123H, Calcium Level 8.5 Current Medications Medications (Trade) Dose Ordered Sig/Kannan Route PRN Reason Start Time Stop Time Status Last Admin Dose Admin Acetaminophen (Tylenol) 650 mg Q6H PRN ORAL Mild Pain/Temp > 100.5 07/29/18 07:00 08/28/18 06:59 Acetaminophen/ Hydrocodone Bitart ([place] 5/325) 1 tab Q6H PRN ORAL Moderate Pain (Pain Scale 4-6) 07/29/18 07:00 08/05/18 06:59 08/04/18 01:18 Carvedilol (Coreg) 3.125 mg EVERY 12 HOURS ORAL 07/29/18 09:00 08/28/18 08:59 08/04/18 09:17 Dextrose (Dextrose 50%) 25 ml Q30M PRN IV Hypoglycemia 07/29/18 07:00 08/28/18 06:59 Dextrose (Dextrose 50%) 50 ml Q30M PRN IV Hypoglycemia 07/29/18 07:00 08/28/18 06:59 Famotidine (Pepcid) 20 mg DAILY ORAL 07/29/18 09:00 08/28/18 08:59 08/04/18 09:17 Fluocinonide (Lidex) 1 applic DAILY TOPIC 07/29/18 10:00 08/28/18 09:59 08/04/18 09:19 Gabapentin (Neurontin) 300 mg BEDTIME ORAL 07/29/18 21:00 08/28/18 20:59 08/03/18 21:32 Insulin Aspart (NovoLOG) BEFORE MEALS AND HS SUBQ 07/29/18 11:30 08/28/18 11:29 08/04/18 06:23 Iron Sucrose 100 mg/Sodium Chloride 60 ml @ 240 mls/hr BEDTIME IV 08/01/18 21:00 08/05/18 21:14 08/03/18 21:32 Lorazepam (Ativan) 2 mg Q6H PRN ORAL For Anxiety 08/01/18 12:15 08/08/18 12:14 08/04/18 10:40 Morphine Sulfate (Morphine Sulfate) 2 mg Q4H PRN IVP Severe Pain (Pain Scale 7-10) 07/29/18 07:00 08/05/18 06:59 Olanzapine (ZyPREXA) 2.5 mg TID ORAL 08/01/18 13:00 08/31/18 12:59 08/04/18 09:17 Ondansetron HCl (Zofran) 4 mg Q4H PRN IVP Nausea & Vomiting 07/29/18 07:00 08/28/18 06:59 Piperacillin Sod/ Tazobactam Sod 3.375 gm/Sodium Chloride 110 ml @ 27.5 mls/hr Q8H IVPB 07/31/18 17:00 08/07/18 16:59 08/04/18 09:17 Sodium Chloride 1,000 ml @ 150 mls/hr Q6H40M IV 07/29/18 13:00 08/28/18 12:59 08/04/18 09:17 Oscar Quezada MD Aug 04, 2018 12:59
--- NOTE | 2018-08-04 13:06 | NUR ---
*-* INSURANCE *-* UPDATED REVIEWS FAXED TO: MARSHALL RIBERA P:[phone] F:[phone] F: [phone]
--- NOTE | 2018-08-04 13:13 | Consultation ---
DATE OF CONSULTATION: 08/02/2018 CARDIOLOGY CONSULTATION CONSULTING PHYSICIAN: Abelardo Shaw M.D. REFERRING PHYSICIAN: Ari Mckeon M.D. REASON FOR CONSULTATION: Preoperative evaluation. HISTORY OF PRESENT ILLNESS: The patient is a 73-year-old lady with history of diabetes and hyperlipidemia, who was brought to the hospital for vaginal bleeding. The patient was evaluated by the Gynecology for postmenopausal vaginal bleeding to rule out acute uterine carcinoma. The patient is scheduled for her SHOP DIRECTOR procedure and a Cardiology consultation was obtained. The patient has myocardial infarction or coronary artery disease. REVIEW OF SYSTEMS: Review of systems was negative other than what was mentioned in the history of present illness. PAST MEDICAL HISTORY: 1. Hyperlipidemia. 2. Diabetes. MEDICATION: Include aspirin, Lipitor, Coreg, Plavix, glipizide, lisinopril, metformin, and gabapentin. ALLERGIES: No known drug allergies. SOCIAL HISTORY: She is single, lives alone. Does not smoke or drink alcohol. PHYSICAL EXAMINATION: VITAL SIGNS: Blood pressure is 134/85, pulse 67, respirations 18, and she is afebrile. HEAD AND NECK: No JVD. LUNGS: Clear. CARDIOVASCULAR: Regular S1 and S2 with no gallop or murmur. ABDOMEN: Soft. EXTREMITIES: No pitting edema. SKIN: The patient has history of scabies. LABORATORY AND DIAGNOSTIC DATA: Her labs show white count 9.2, her hemoglobin was 6.8 that improved to 10.1 after transfusion, and platelet count of 241,000. Sodium 140, potassium 3.8, BUN of 16, and creatinine 1.1. INR is 1. Urinalysis shows too numerous to count, 5+ blood. ASSESSMENT AND PLAN: 1. Hypertension. Blood pressure is stable, on Coreg 3.125 mg b.i.d. We will get an echocardiogram to evaluate for ejection fraction and wall motion abnormality. 2. Hyperlipidemia. The patient was prior to admission. We will hold up at this time. 3. Vaginal bleeding. SHOP DIRECTOR, and may need biopsy. Echocardiogram is pending as well as EKG for preoperative clearance. 4. Psychosis, on Zyprexa. Further evaluation by . 5. Alcohol dependence. 6. Lice infestation. Thank you very much, Dr. Mckeon, for allowing me to participate in the care of this patient. Please do not hesitate to contact me for any questions regarding my evaluation. Abelardo Shaw M.D. DR: MARIJA JOB#: [id number] CC:
--- NOTE | 2018-08-04 14:30 | NUR ---
NURSE NOTES: called Dr. Shaw regarding patient pre operative clearance for OBGY biopsy. said he will come to the hospital to see the patient and decide.
--- NOTE | 2018-08-04 15:29 | NUR ---
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 VAGINAL BLEEDING . UTERINE TUMOR . R/O ACUTE UTERINE CARCINOMA VS: BP 149/78, P 54, T 96.8, RR 20, SpO2 93 RBC 3.51, Hgb 10.4, Hct 31.1, Chloride 110, Glucose 123 IS:ZYPREXA 2.5mg PIPERACILLIN SOD. 110ml IVPB NS x1L IV LIDEX CARVEDILOL 3.125mg PEPCID 20mg NORCO 5/325 MED/SURG STATUS
[2018-08-04 16:00] VITALS: BP 118/70
--- NOTE | 2018-08-04 17:58 | Cardiac Electrophysiology PN ---
Assessment/Plan Assessment/Plan 1. Hypertension. Blood pressure is stable, on Coreg 3.125 mg b.i.d. Echocardiogram EF 65% 2. Hyperlipidemia. 3. Vaginal bleeding. may need biopsy. NSR. NL EF. No prior GA or CHF. OK to proceed with surgery at moderate risk 4. Psychosis, on Zyprexa. 5. Alcohol dependence. 6. Lice infestation. Subjective Subjective Comfortable in NAD. No CP or SOB Objective Last 24 Hour Vital Signs Date Time Temp Pulse Resp B/P (MAP) Pulse Ox O2 Delivery O2 Flow Rate FiO2 08/04/18 16:00 97.1 80 20 118/70 (86) 97 08/04/18 12:00 98.4 54 20 119/79 (92) 96 08/04/18 09:17 81 116/83 08/04/18 09:00 Room Air 08/04/18 08:00 98.2 81 20 116/83 (94) 99 08/04/18 04:00 97.6 78 20 146/69 (94) 97 08/04/18 00:00 96.8 78 20 149/78 (101) 93 08/03/18 21:31 64 140/65 08/03/18 21:00 Room Air 08/03/18 20:00 98.4 64 24 140/65 (90) 95 Intake and Output 08/03/18 08/04/18 18:59 06:59 Intake Total 1857.5 ml 387.5 ml Balance 1857.5 ml 387.5 ml Intake Oral 820 ml IV Total 1037.5 ml 387.5 ml # Voids 6 2 # Bowel Movements 1 Laboratory Tests Test 08/04/18 06:15 White Blood Count 8.2 K/UL (4.8-10.8) Red Blood Count 3.51 M/UL (4.20-5.40) L Hemoglobin 10.4 G/DL (12.0-16.0) L Hematocrit 31.1 % (37.0-47.0) L Mean Corpuscular Volume 88 FL (80-99) Mean Corpuscular Hemoglobin 29.5 PG (27.0-31.0) Mean Corpuscular Hemoglobin Concent 33.3 G/DL (32.0-36.0) Red Cell Distribution Width 13.1 % (11.6-14.8) Platelet Count 277 K/UL (150-450) Mean Platelet Volume 6.5 FL (6.5-10.1) Neutrophils (%) (Auto) 64.0 % (45.0-75.0) Lymphocytes (%) (Auto) 21.6 % (20.0-45.0) Monocytes (%) (Auto) 8.9 % (1.0-10.0) Eosinophils (%) (Auto) 4.9 % (0.0-3.0) H Basophils (%) (Auto) 0.6 % (0.0-2.0) Sodium Level 140 MMOL/L (136-145) Potassium Level 3.9 MMOL/L (3.5-5.1) Chloride Level 110 MMOL/L (98-107) H Carbon Dioxide Level 22 MMOL/L (21-32) Anion Gap 8 mmol/L (5-15) Blood Urea Nitrogen 9 mg/dL (7-18) Creatinine 1.0 MG/DL (0.55-1.30) Estimat Glomerular Filtration Rate mL/min (>60) Glucose Level 123 MG/DL (74-106) H Calcium Level 8.5 MG/DL (8.5-10.1) Objective HEAD AND NECK: No JVD. LUNGS: Clear. CARDIOVASCULAR: Regular S1 and S2 with no gallop or murmur. ABDOMEN: Soft. EXTREMITIES: No pitting edema. SKIN: The patient has history of scabies. Abelardo Shaw MD Aug 04, 2018 17:58
--- NOTE | 2018-08-04 18:13 | NUR ---
CHARGE NURSE NOTES: LEFT MESSAGE WITH DR. MARTI OFFICE RELAYING CLEARANCE FROM CARDIO Addendum: 08/04/18 at 1842 by ARMANDO GALAN RN DR. MARTI CALLED BACK, PER , WILL CHECK WITH OR FOR SCHEDULE EARLY IN AM
--- NOTE | 2018-08-04 18:56 | NUR ---
HAND-OFF: Report given to MARYANNE Kay.
--- NOTE | 2018-08-04 18:56 | Internal Med Progress Note ---
Subjective Date of Service: Aug 04, 2018 Physician Name Rhys Yousif Attending Physician Ari Mckeon MD Current Medications Medications (Trade) Dose Ordered Sig/Kannan Route PRN Reason Start Time Stop Time Status Last Admin Dose Admin Acetaminophen (Tylenol) 650 mg Q6H PRN ORAL Mild Pain/Temp > 100.5 07/29/18 07:00 08/28/18 06:59 Acetaminophen/ Hydrocodone Bitart ([place] 5/325) 1 tab Q6H PRN ORAL Moderate Pain (Pain Scale 4-6) 07/29/18 07:00 08/05/18 06:59 08/04/18 01:18 Carvedilol (Coreg) 3.125 mg EVERY 12 HOURS ORAL 07/29/18 09:00 08/28/18 08:59 08/04/18 09:17 Dextrose (Dextrose 50%) 25 ml Q30M PRN IV Hypoglycemia 07/29/18 07:00 08/28/18 06:59 Dextrose (Dextrose 50%) 50 ml Q30M PRN IV Hypoglycemia 07/29/18 07:00 08/28/18 06:59 Famotidine (Pepcid) 20 mg DAILY ORAL 07/29/18 09:00 08/28/18 08:59 08/04/18 09:17 Fluocinonide (Lidex) 1 applic DAILY TOPIC 07/29/18 10:00 08/28/18 09:59 08/04/18 09:19 Gabapentin (Neurontin) 300 mg BEDTIME ORAL 07/29/18 21:00 08/28/18 20:59 08/03/18 21:32 Insulin Aspart (NovoLOG) BEFORE MEALS AND HS SUBQ 07/29/18 11:30 08/28/18 11:29 08/04/18 17:14 Iron Sucrose 100 mg/Sodium Chloride 60 ml @ 240 mls/hr BEDTIME IV 08/01/18 21:00 08/05/18 21:14 08/03/18 21:32 Lorazepam (Ativan) 2 mg Q6H PRN ORAL For Anxiety 08/01/18 12:15 08/08/18 12:14 08/04/18 10:40 Morphine Sulfate (Morphine Sulfate) 2 mg Q4H PRN IVP Severe Pain (Pain Scale 7-10) 07/29/18 07:00 08/05/18 06:59 Olanzapine (ZyPREXA) 2.5 mg TID ORAL 08/01/18 13:00 08/31/18 12:59 08/04/18 17:17 Ondansetron HCl (Zofran) 4 mg Q4H PRN IVP Nausea & Vomiting 07/29/18 07:00 08/28/18 06:59 Piperacillin Sod/ Tazobactam Sod 3.375 gm/Sodium Chloride 110 ml @ 27.5 mls/hr Q8H IVPB 07/31/18 17:00 08/07/18 16:59 08/04/18 17:15 Sodium Chloride 1,000 ml @ 150 mls/hr Q6H40M IV 07/29/18 13:00 08/28/18 12:59 08/04/18 15:40 Allergies: Coded Allergies: NO KNOWN DRUG ALLERGIES (Verified Allergy, Unknown, 06/09/17) ROS Limited/Unobtainable: No Constitutional: Reports: no symptoms HEENT: Reports: no symptoms Cardiovascular: Reports: no symptoms Respiratory: Reports: no symptoms Gastrointestinal/Abdominal: Reports: no symptoms Genitourinary: Reports: no symptoms Neurologic/Psychiatric: Reports: no symptoms Subjective 73 YO F admitted with post menopausal vaginal bleeding. Now severe anemia. Cover for Int Med-Dr Mckeon. Await endometrial biopsy under anesthesia Objective Last Vital Signs Date Time Temp Pulse Resp B/P (MAP) Pulse Ox O2 Delivery O2 Flow Rate FiO2 08/04/18 16:00 97.1 80 20 118/70 (86) 97 08/04/18 09:00 Room Air Laboratory Tests Test 08/04/18 06:15 White Blood Count 8.2 K/UL (4.8-10.8) Red Blood Count 3.51 M/UL (4.20-5.40) L Hemoglobin 10.4 G/DL (12.0-16.0) L Hematocrit 31.1 % (37.0-47.0) L Mean Corpuscular Volume 88 FL (80-99) Mean Corpuscular Hemoglobin 29.5 PG (27.0-31.0) Mean Corpuscular Hemoglobin Concent 33.3 G/DL (32.0-36.0) Red Cell Distribution Width 13.1 % (11.6-14.8) Platelet Count 277 K/UL (150-450) Mean Platelet Volume 6.5 FL (6.5-10.1) Neutrophils (%) (Auto) 64.0 % (45.0-75.0) Lymphocytes (%) (Auto) 21.6 % (20.0-45.0) Monocytes (%) (Auto) 8.9 % (1.0-10.0) Eosinophils (%) (Auto) 4.9 % (0.0-3.0) H Basophils (%) (Auto) 0.6 % (0.0-2.0) Sodium Level 140 MMOL/L (136-145) Potassium Level 3.9 MMOL/L (3.5-5.1) Chloride Level 110 MMOL/L (98-107) H Carbon Dioxide Level 22 MMOL/L (21-32) Anion Gap 8 mmol/L (5-15) Blood Urea Nitrogen 9 mg/dL (7-18) Creatinine 1.0 MG/DL (0.55-1.30) Estimat Glomerular Filtration Rate mL/min (>60) Glucose Level 123 MG/DL (74-106) H Calcium Level 8.5 MG/DL (8.5-10.1) Intake and Output 08/03/18 08/04/18 18:59 06:59 Intake Total 1857.5 ml 387.5 ml Balance 1857.5 ml 387.5 ml Intake Oral 820 ml IV Total 1037.5 ml 387.5 ml # Voids 6 2 # Bowel Movements 1 Objective PHYSICAL EXAMINATION: GENERAL: The patient is a well-developed and well-nourished female, in no apparent distress. HEENT: Eyes - pupils are equal and responsive to light and accommodation. Extraocular movements are intact. NECK: Supple without lymphadenopathy. CHEST: Lungs are clear to auscultation bilaterally without wheezes or rales. CARDIOVASCULAR: Regular rhythm and rate. S1 and S2 are normal without murmurs, rubs, or gallops. ABDOMEN: Soft, nontender, and nondistended. Positive bowel sounds. No evidence of hepatosplenomegaly. Currently, no rebound or guarding noted. EXTREMITIES: Negative for clubbing, cyanosis, or edema. RECTAL/GENITAL: Refused. NEUROLOGIC: Cranial nerves II through XII are grossly intact without focal deficits. Motor strength is 5/5 bilaterally. Deep tendon reflexes are 2+ Assessment/Plan Assessment/Plan ASSESSMENT: This is a 73-year-old female. 1. Postmenopausal vaginal bleeding. 2. Probable endometrial cancer versus endometrial hyperplasia. 3. Pelvic pain. 4. Diabetes type 2. 5. Hypercholesterolemia. 6. Severe anemia-blood loss 7. Agitation TREATMENT: 1. Postmenopausal vaginal bleeding/endometrial hyperplasia. A VISION MIXER consultation has been obtained with Dr. Torrez. We will follow recommendations of VISION MIXER. The patient will require an endometrial biopsy under anesthesia during this hospitalization-see VISION MIXER note. A cardiology consult has been obtained with Dr Shaw for clearance for surgery. An Oncology consultation with Dr. Cruzito Willson. 2. Diabetes type 2. Regular insulin sliding scale has been instituted. 3. Hypercholesterolemia. Continue Lipitor as above. 4. Hypertension. Continue Coreg as above. 5. S/P Transfusion 2 unit PRBC per heme/onc-Dr Willson 6. Ativan PRN; see psych consult 7. See cardiology clearance for surgery-ok to proceed with endometrial biopsy under anesthesia Rhys Yousif MD Aug 04, 2018 18:56
--- NOTE | 2018-08-04 19:03 | NUR ---
NURSE NOTES: Received report form MARYANNE March. Patient on room air. no signs of distress or labored breathing. IV intact, patent, and infusing IV fluids. Soft wrist restraints on bilateral. bed in lowest position with call light in reach. Will continue to monitor.
[2018-08-04 20:00] VITALS: BP 170/92
--- NOTE | 2018-08-04 20:58 | General Progress Note ---
Assessment/Plan Assessment/Plan ASSESSMENT: # Endometrial thickening, concerning for infection or neoplasm given findings on recent CT scan, with Postmenopausal vaginal bleeding/endometrial hyperplasia, A FOUNDRY WORKER consultation has been obtained --> appreciate GLASS DECORATOR recs --> need tissue pathology --> imaging has been reviewed # Anemia of iron deficiency --> Anemia workup has been reviewed, Ferritin 13 --> No evidence of hemolysis is noted, peripheral smear has been reviewed. --> Hgb goal >7. Transfuse prn. --> Medications have been reviewed --> HGB trend: 8--> 7->6.8-->8-->10->11 ==> started on iv iron 100mg iv daily x 5 days # Leukocytosis/Elevated white blood cell count, unspecified likely related to underlying stress reaction, smoking, or underlying infection (especially if bandemia is noted) --> have reviewed peripheral smear and bandemia/neutrophilia noted --> continue antibiotics if they have been started by ID team --> monitor for resolution # Pelvic pain. # Diabetes type 2, regular insulin sliding scale has been instituted. # Hypercholesterolemia, Continue Lipitor as above The timing of this note does not necessarily reflect the time of the patient was seen. Greatly appreciate consultation! Subjective Constitutional: Denies: no symptoms, chills, diaphoresis, fever, malaise, weakness, other HEENT: Denies: no symptoms, eye pain, blurred vision, tearing, double vision, ear pain, ear discharge, nose pain, nose congestion, throat pain, throat swelling, mouth pain, mouth swelling, other Cardiovascular: Denies: no symptoms, chest pain, edema, irregular heart rate, lightheadedness, palpitations, syncope, other Respiratory: Denies: no symptoms, cough, orthopnea, shortness of breath, SOB with excertion, SOB at rest, sputum, stridor, wheezing, other Gastrointestinal/Abdominal: Denies: no symptoms, abdomen distended, abdominal pain, black stools, tarry stools, blood in stool, constipated, diarrhea, difficulty swallowing, nausea, poor appetite, poor fluid intake, rectal bleeding , vomiting, other Genitourinary: Denies: no symptoms, burning, discharge, frequency, flank pain, hematuria, incontinence, pain, urgency, other Endocrine: Denies: no symptoms, excessive sweating, flushing, intolerance to cold, intolerance to heat, increased hunger, increased thirst, increased urine, unexplained weight gain, unexplained weight loss, other Allergies: Coded Allergies: NO KNOWN DRUG ALLERGIES (Verified Allergy, Unknown, 06/09/17) Subjective 07/31: Seen by bedside, hgb 6.8, will receive prbc, Awaiting FOUNDRY WORKER consult. 08/01: Pt is awake, comfortable, no events reported, hgb 8 08/02: awake, comfortable, no acute distress reported. 08/03: seen resting in bed, echo and CXR reviewed, no events, Await cardiology clearance for endometrial biopsy under anesthesia 08/04: Pt is resting in bed, cardiology consult done today, pending biopsy, no events Objective Last 24 Hour Vital Signs Date Time Temp Pulse Resp B/P (MAP) Pulse Ox O2 Delivery O2 Flow Rate FiO2 08/04/18 16:00 97.1 80 20 118/70 (86) 97 08/04/18 12:00 98.4 54 20 119/79 (92) 96 08/04/18 09:17 81 116/83 08/04/18 09:00 Room Air 08/04/18 08:00 98.2 81 20 116/83 (94) 99 08/04/18 04:00 97.6 78 20 146/69 (94) 97 08/04/18 00:00 96.8 78 20 149/78 (101) 93 08/03/18 21:31 64 140/65 08/03/18 21:00 Room Air Intake and Output 08/03/18 08/04/18 18:59 06:59 Intake Total 1857.5 ml 387.5 ml Balance 1857.5 ml 387.5 ml Intake Oral 820 ml IV Total 1037.5 ml 387.5 ml # Voids 6 2 # Bowel Movements 1 Laboratory Tests 08/04/18 06:15: White Blood Count 8.2, Red Blood Count 3.51L, Hemoglobin 10.4L, Hematocrit 31.1L , Mean Corpuscular Volume 88, Mean Corpuscular Hemoglobin 29.5, Mean Corpuscular Hemoglobin Concent 33.3, Red Cell Distribution Width 13.1, Platelet Count 277, Mean Platelet Volume 6.5, Neutrophils (%) (Auto) 64.0, Lymphocytes (% ) (Auto) 21.6, Monocytes (%) (Auto) 8.9, Eosinophils (%) (Auto) 4.9H, Basophils (%) (Auto) 0.6, Sodium Level 140, Potassium Level 3.9, Chloride Level 110H, Carbon Dioxide Level 22, Anion Gap 8, Blood Urea Nitrogen 9, Creatinine 1.0, Estimat Glomerular Filtration Rate , Glucose Level 123H, Calcium Level 8.5 Height (Feet): 5 Height (Inches): 0.00 Weight (Pounds): 151 Objective PHYSICAL EXAMINATION: VITAL SIGNS: Reviewed GENERAL: The patient is a well-developed and well-nourished female, in no apparent distress. HEENT: Eyes - pupils are equal and responsive to light and accommodation. Extraocular movements are intact. NECK: Supple without lymphadenopathy. CHEST: Lungs are clear to auscultation bilaterally without wheezes or rales. CARDIOVASCULAR: Regular rhythm and rate. S1 and S2 are normal without murmurs , rubs, or gallops. ABDOMEN: Soft, nontender, and nondistended. Positive bowel sounds. No evidence of hepatosplenomegaly. Currently, no rebound or guarding noted. EXTREMITIES: Negative for clubbing, cyanosis, or edema. NEUROLOGIC: Cranial nerves II through XII are grossly intact without focal deficits. Motor strength is 5/5 bilaterally. Deep tendon reflexes are 2+ plantar. Cruzito Willson MD Aug 04, 2018 20:58
[2018-08-04] MEDS: Iron Sucrose 100 MG in NS 55 ML IV SCH (21:41)
[2018-08-05] VITALS: BP 174/88
[2018-08-05] MEDS: Zoysn 3.37gm in NS 100ML IVPB SCH ×3 (01:09→16:35)
[2018-08-05] MEDS: LORazepam 1mg tab ORAL PRN ×2 (01:17→08:49)
[2018-08-05 04:00] VITALS: BP 160/75
[2018-08-05] MEDS: NovoLOG Insulin Flexpen SUBQ SCH ×4 (05:33→22:18)
[2018-08-05 07:17] LABS: EOSINOPHILS % (AUTO) 3.4 % (0.0-3.0); HEMATOCRIT 28.5 % (37.0-47.0); HEMOGLOBIN 9.6 G/DL (12.0-16.0); LYMPHOCYTES % (AUTO) 17.2 % (20.0-45.0); MEAN CORPUSCULAR VOLUME 87 FL (80-99); MONOCYTES % (AUTO) 9.7 % (1.0-10.0); NEUTROPHILS % (AUTO) 68.7 % (45.0-75.0); PLATELET COUNT 264 K/UL (150-450); RED BLOOD COUNT 3.26 M/UL (4.20-5.40); RED CELL DISTRIBUTION WIDTH 13.3 % (11.6-14.8); WHITE BLOOD COUNT 9.5 K/UL (4.8-10.8)
[2018-08-05 07:22] LABS: ANION GAP 7 mmol/L (5-15); BLOOD UREA NITROGEN 9 mg/dL (7-18); CALCIUM 8.6 MG/DL (8.5-10.1); CARBON DIOXIDE 23 MMOL/L (21-32); CHLORIDE 109 MMOL/L (98-107); CREATININE 1.1 MG/DL (0.55-1.30); POTASSIUM 4.3 MMOL/L (3.5-5.1); SODIUM 139 MMOL/L (136-145)
[2018-08-05 08:00] VITALS: BP 172/94
--- NOTE | 2018-08-05 08:06 | NUR ---
NURSE NOTES: Patient received in stable condition, breathing unlabored on room air. No signs of respiratory distress or pain observed. IV site patent and intact on right hand. Fluids running at 150cc/hr. Bed locked in low position, call light placed within reach. Will continue to monitor.
[2018-08-05] MEDS: OLANZapine 2.5mg tab ORAL SCH ×3 (08:45→16:35)
[2018-08-05] MEDS: Fluocinonide 15gm Cream TOPIC SCH (08:49)
--- NOTE | 2018-08-05 10:16 | NUR ---
UNIT TRUST MANAGERGRAINER MACHINE SI:ANEMIA . VAGINAL BLEEDING . UTERINE TUMOR . R/O ACUTE UTERINE CARCINOMA VS: BP 170/92, P 102, T 98.0, RR 18, SpO2 95 Chloride 109, RBC 3.26, Hgb 9.6, Hct 28.5, Eos% 3.4 IS:NS IV x1L PEPCID 20mg COREG 3.125mg LIDEX PIPERACILLIN SOD/ TAZOBACTAM SOD. 110 ml IVPB ATIVAN 2mg ZYPREXA 2.5mg MED/SURG STATUS
[2018-08-05] MEDS ORDERED: Enalaprilat 2.5mg/2ml Inj IV PRN (10:45)
--- NOTE | 2018-08-05 11:03 | NUR ---
RD ASSESSMENT & RECOMMENDATIONS SEE CARE ACTIVITY FOR COMPLETE ASSESSMENT DAILY ESTIMATED NEEDS: Needs based on DM 51kg adj 25-30 kcals/kg 6354-3787 total kcals 1-1.5 g protein/kg 51-77 g total protein 25-30 mL/kg 1143-5660 total fluid mLs NUTRITION DIAGNOSIS: Altered nutrition related lab values r/t diabetes as evidenced by elev BG, elev POC, Uglu 2+ on adm. PO DIET RECOMMENDATIONS: CCHO LOW + Snacks in b/w meals ADDITIONAL RECOMMENDATIONS: 1) Obtain a calibrated bed scale wt as able 2) With h/o ETOH use, rec Thiamine/ folate/ MVI 3) Provide pt w/ Glucerna 1 tetra [place] daily w/ variable po intake
--- NOTE | 2018-08-05 11:21 | Cardiac Electrophysiology PN ---
Assessment/Plan Assessment/Plan 1. Hypertension. Blood pressure is stable, on Coreg 3.125 mg b.i.d. Echo EF 65% 2. Hyperlipidemia. 3. Vaginal bleeding. may need biopsy. NSR. NL EF. No prior CO or CHF. OK to proceed with surgery at moderate risk Scheduled for surgery on Wednesday 4. Psychosis, on Zyprexa. 5. Alcohol dependence. 6. Lice infestation. Subjective Subjective Comfortable in NAD. No CP or SOB. Confused in restraints. Objective Last 24 Hour Vital Signs Date Time Temp Pulse Resp B/P (MAP) Pulse Ox O2 Delivery O2 Flow Rate FiO2 08/05/18 09:00 Room Air 08/05/18 08:44 79 160/75 08/05/18 08:00 98.0 88 20 172/94 (120) 96 08/05/18 04:00 98.0 79 18 160/75 (103) 08/05/18 00:00 98.9 92 18 174/88 (116) 96 08/04/18 21:40 102 170/92 08/04/18 21:00 Room Air 08/04/18 20:00 98.9 102 18 170/92 (118) 95 08/04/18 16:00 97.1 80 20 118/70 (86) 97 08/04/18 12:00 98.4 54 20 119/79 (92) 96 Intake and Output 08/04/18 08/05/18 19:00 07:00 Intake Total 950.0 ml 210 ml Balance 950.0 ml 210 ml Intake Oral 240 ml IV Total 710.0 ml 210 ml # Voids 6 # Bowel Movements 3 Laboratory Tests Test 08/05/18 06:15 White Blood Count 9.5 K/UL (4.8-10.8) Red Blood Count 3.26 M/UL (4.20-5.40) L Hemoglobin 9.6 G/DL (12.0-16.0) L Hematocrit 28.5 % (37.0-47.0) L Mean Corpuscular Volume 87 FL (80-99) Mean Corpuscular Hemoglobin 29.4 PG (27.0-31.0) Mean Corpuscular Hemoglobin Concent 33.6 G/DL (32.0-36.0) Red Cell Distribution Width 13.3 % (11.6-14.8) Platelet Count 264 K/UL (150-450) Mean Platelet Volume 6.5 FL (6.5-10.1) Neutrophils (%) (Auto) 68.7 % (45.0-75.0) Lymphocytes (%) (Auto) 17.2 % (20.0-45.0) L Monocytes (%) (Auto) 9.7 % (1.0-10.0) Eosinophils (%) (Auto) 3.4 % (0.0-3.0) H Basophils (%) (Auto) 1.0 % (0.0-2.0) Sodium Level 139 MMOL/L (136-145) Potassium Level 4.3 MMOL/L (3.5-5.1) Chloride Level 109 MMOL/L (98-107) H Carbon Dioxide Level 23 MMOL/L (21-32) Anion Gap 7 mmol/L (5-15) Blood Urea Nitrogen 9 mg/dL (7-18) Creatinine 1.1 MG/DL (0.55-1.30) Estimat Glomerular Filtration Rate mL/min (>60) Glucose Level 89 MG/DL (74-106) Calcium Level 8.6 MG/DL (8.5-10.1) Objective HEAD AND NECK: No JVD. LUNGS: Clear. CARDIOVASCULAR: Regular S1 and S2 with no gallop or murmur. ABDOMEN: Soft. EXTREMITIES: No pitting edema. SKIN: The patient has history of scabies. Abelardo Shaw MD Aug 05, 2018 11:21
--- NOTE | 2018-08-05 11:32 | General Progress Note ---
Assessment/Plan Problem List: (1) Acute metabolic encephalopathy ICD Codes: G93.41 - Metabolic encephalopathy SNOMED: 43637986, 445788151 (2) Alcohol dependence ICD Codes: F10.20 - Alcohol dependence, uncomplicated SNOMED: 68527170, 460531898 Assessment/Plan Zyprexa 5mg po tid Ativan prn cont restraints Subjective Date patient seen: Aug 04, 2018 Neurologic/Psychiatric: Reports: anxiety, depressed, emotional problems Allergies: Coded Allergies: NO KNOWN DRUG ALLERGIES (Verified Allergy, Unknown, 06/09/17) Subjective the pt cont to have episodes of agitation Objective Last 24 Hour Vital Signs Date Time Temp Pulse Resp B/P (MAP) Pulse Ox O2 Delivery O2 Flow Rate FiO2 08/05/18 09:00 Room Air 08/05/18 08:44 79 160/75 08/05/18 08:00 98.0 88 20 172/94 (120) 96 08/05/18 04:00 98.0 79 18 160/75 (103) 08/05/18 00:00 98.9 92 18 174/88 (116) 96 08/04/18 21:40 102 170/92 08/04/18 21:00 Room Air 08/04/18 20:00 98.9 102 18 170/92 (118) 95 08/04/18 16:00 97.1 80 20 118/70 (86) 97 08/04/18 12:00 98.4 54 20 119/79 (92) 96 Intake and Output 08/04/18 08/05/18 19:00 07:00 Intake Total 950.0 ml 210 ml Balance 950.0 ml 210 ml Intake Oral 240 ml IV Total 710.0 ml 210 ml # Voids 6 # Bowel Movements 3 Laboratory Tests 08/05/18 06:15: White Blood Count 9.5, Red Blood Count 3.26L, Hemoglobin 9.6L, Hematocrit 28.5L , Mean Corpuscular Volume 87, Mean Corpuscular Hemoglobin 29.4, Mean Corpuscular Hemoglobin Concent 33.6, Red Cell Distribution Width 13.3, Platelet Count 264, Mean Platelet Volume 6.5, Neutrophils (%) (Auto) 68.7, Lymphocytes (% ) (Auto) 17.2L, Monocytes (%) (Auto) 9.7, Eosinophils (%) (Auto) 3.4H, Basophils (%) (Auto) 1.0, Sodium Level 139, Potassium Level 4.3, Chloride Level 109H, Carbon Dioxide Level 23, Anion Gap 7, Blood Urea Nitrogen 9, Creatinine 1.1, Estimat Glomerular Filtration Rate , Glucose Level 89, Calcium Level 8.6 Height (Feet): 5 Height (Inches): 0.00 Weight (Pounds): 151 Tip Frazier MD Aug 05, 2018 11:32
--- NOTE | 2018-08-05 11:34 | General Progress Note ---
Assessment/Plan Problem List: (1) Acute metabolic encephalopathy ICD Codes: G93.41 - Metabolic encephalopathy SNOMED: 76882525, 501704294 (2) Alcohol dependence ICD Codes: F10.20 - Alcohol dependence, uncomplicated SNOMED: 80610831, 365906848 Assessment/Plan Zyprexa 5mg po tid Ativan prn cont restraints Subjective Date patient seen: Aug 05, 2018 Neurologic/Psychiatric: Reports: anxiety, depressed, emotional problems Allergies: Coded Allergies: NO KNOWN DRUG ALLERGIES (Verified Allergy, Unknown, 06/09/17) Subjective the pt cont to have episodes of agitation confused and in restraints Objective Last 24 Hour Vital Signs Date Time Temp Pulse Resp B/P (MAP) Pulse Ox O2 Delivery O2 Flow Rate FiO2 08/05/18 09:00 Room Air 08/05/18 08:44 79 160/75 08/05/18 08:00 98.0 88 20 172/94 (120) 96 08/05/18 04:00 98.0 79 18 160/75 (103) 08/05/18 00:00 98.9 92 18 174/88 (116) 96 08/04/18 21:40 102 170/92 08/04/18 21:00 Room Air 08/04/18 20:00 98.9 102 18 170/92 (118) 95 08/04/18 16:00 97.1 80 20 118/70 (86) 97 08/04/18 12:00 98.4 54 20 119/79 (92) 96 Intake and Output 08/04/18 08/05/18 19:00 07:00 Intake Total 950.0 ml 210 ml Balance 950.0 ml 210 ml Intake Oral 240 ml IV Total 710.0 ml 210 ml # Voids 6 # Bowel Movements 3 Laboratory Tests 08/05/18 06:15: White Blood Count 9.5, Red Blood Count 3.26L, Hemoglobin 9.6L, Hematocrit 28.5L , Mean Corpuscular Volume 87, Mean Corpuscular Hemoglobin 29.4, Mean Corpuscular Hemoglobin Concent 33.6, Red Cell Distribution Width 13.3, Platelet Count 264, Mean Platelet Volume 6.5, Neutrophils (%) (Auto) 68.7, Lymphocytes (% ) (Auto) 17.2L, Monocytes (%) (Auto) 9.7, Eosinophils (%) (Auto) 3.4H, Basophils (%) (Auto) 1.0, Sodium Level 139, Potassium Level 4.3, Chloride Level 109H, Carbon Dioxide Level 23, Anion Gap 7, Blood Urea Nitrogen 9, Creatinine 1.1, Estimat Glomerular Filtration Rate , Glucose Level 89, Calcium Level 8.6 Height (Feet): 5 Height (Inches): 0.00 Weight (Pounds): 151 Tip Frazier MD Aug 05, 2018 11:33
[2018-08-05 12:00] VITALS: BP 166/81
--- NOTE | 2018-08-05 15:03 | Pulmonology Progress Note ---
Assessment/Plan Problems: (1) Uterine malignancy (2) Anemia (3) UTI (urinary tract infection) (4) Abnormal vaginal bleeding (5) Diabetes mellitus (6) Incontinence Assessment/Plan all reviewed prbc again, Hem is 8 [employer] AND [employer] CONSULTANT reviewed sliding scale echo and CXR reviewed Cardiology consult requested,pending clearance for surgery Subjective ROS Limited/Unobtainable: No Constitutional: Reports: no symptoms HEENT: Repors: no symptoms Allergies: Coded Allergies: NO KNOWN DRUG ALLERGIES (Verified Allergy, Unknown, 06/09/17) Objective Last 24 Hour Vital Signs Date Time Temp Pulse Resp B/P (MAP) Pulse Ox O2 Delivery O2 Flow Rate FiO2 08/05/18 12:00 98.4 77 20 166/81 (109) 95 08/05/18 09:00 Room Air 08/05/18 08:44 79 160/75 08/05/18 08:00 98.0 88 20 172/94 (120) 96 08/05/18 04:00 98.0 79 18 160/75 (103) 08/05/18 00:00 98.9 92 18 174/88 (116) 96 08/04/18 21:40 102 170/92 08/04/18 21:00 Room Air 08/04/18 20:00 98.9 102 18 170/92 (118) 95 08/04/18 16:00 97.1 80 20 118/70 (86) 97 Intake and Output 08/04/18 08/05/18 19:00 07:00 Intake Total 950.0 ml 210 ml Balance 950.0 ml 210 ml Intake Oral 240 ml IV Total 710.0 ml 210 ml # Voids 6 # Bowel Movements 3 Objective General Appearance: WD/WN HEENT: normocephalic, atraumatic Respiratory/Chest: chest wall non-tender, lungs clear Cardiovascular: normal peripheral pulses, normal rate Abdomen: normal bowel sounds, soft, non tender Extremities: no cyanosis Skin: no ulcers Laboratory Tests 08/05/18 06:15: White Blood Count 9.5, Red Blood Count 3.26L, Hemoglobin 9.6L, Hematocrit 28.5L , Mean Corpuscular Volume 87, Mean Corpuscular Hemoglobin 29.4, Mean Corpuscular Hemoglobin Concent 33.6, Red Cell Distribution Width 13.3, Platelet Count 264, Mean Platelet Volume 6.5, Neutrophils (%) (Auto) 68.7, Lymphocytes (% ) (Auto) 17.2L, Monocytes (%) (Auto) 9.7, Eosinophils (%) (Auto) 3.4H, Basophils (%) (Auto) 1.0, Sodium Level 139, Potassium Level 4.3, Chloride Level 109H, Carbon Dioxide Level 23, Anion Gap 7, Blood Urea Nitrogen 9, Creatinine 1.1, Estimat Glomerular Filtration Rate , Glucose Level 89, Calcium Level 8.6 Current Medications Medications (Trade) Dose Ordered Sig/Kannan Route PRN Reason Start Time Stop Time Status Last Admin Dose Admin Acetaminophen (Tylenol) 650 mg Q6H PRN ORAL Mild Pain/Temp > 100.5 07/29/18 07:00 08/28/18 06:59 Carvedilol (Coreg) 3.125 mg EVERY 12 HOURS ORAL 07/29/18 09:00 08/28/18 08:59 08/05/18 08:44 Clonidine HCl (Catapres Tab) 0.1 mg Q2HR PRN ORAL For High Blood Pressure >170 08/05/18 10:45 09/04/18 10:44 Dextrose (Dextrose 50%) 25 ml Q30M PRN IV Hypoglycemia 07/29/18 07:00 08/28/18 06:59 Dextrose (Dextrose 50%) 50 ml Q30M PRN IV Hypoglycemia 07/29/18 07:00 08/28/18 06:59 Enalaprilat (Vasotec) 1.25 mg Q3HR PRN IV For High Blood Pressure >170 08/05/18 10:45 09/04/18 10:44 Famotidine (Pepcid) 20 mg DAILY ORAL 07/29/18 09:00 08/28/18 08:59 08/05/18 08:44 Fluocinonide (Lidex) 1 applic DAILY TOPIC 07/29/18 10:00 08/28/18 09:59 08/05/18 08:49 Gabapentin (Neurontin) 300 mg BEDTIME ORAL 07/29/18 21:00 08/28/18 20:59 08/04/18 21:40 Insulin Aspart (NovoLOG) BEFORE MEALS AND HS SUBQ 07/29/18 11:30 08/28/18 11:29 08/04/18 21:43 Iron Sucrose 100 mg/Sodium Chloride 60 ml @ 240 mls/hr BEDTIME IV 08/01/18 21:00 08/05/18 21:14 08/04/18 21:41 Lorazepam (Ativan) 2 mg Q6H PRN ORAL For Anxiety 08/01/18 12:15 08/08/18 12:14 08/05/18 08:49 Olanzapine (ZyPREXA) 2.5 mg TID ORAL 08/01/18 13:00 08/31/18 12:59 08/05/18 08:45 Ondansetron HCl (Zofran) 4 mg Q4H PRN IVP Nausea & Vomiting 07/29/18 07:00 08/28/18 06:59 Piperacillin Sod/ Tazobactam Sod 3.375 gm/Sodium Chloride 110 ml @ 27.5 mls/hr Q8H IVPB 07/31/18 17:00 08/07/18 16:59 08/05/18 08:44 Sodium Chloride 1,000 ml @ 150 mls/hr Q6H40M IV 07/29/18 13:00 08/28/18 12:59 08/05/18 05:28 Oscar Quezada MD Aug 05, 2018 15:03
[2018-08-05 16:00] VITALS: BP 172/87
--- NOTE | 2018-08-05 16:57 | General Progress Note ---
Progress Note Progress Note GYNECOLOGY PROGRESS NOTE Patient in bed. No family currently at bedside. I called the patient's daughter to discuss the patient's care plan. Discussed at length the R/B/A of surgery. I discussed the procedure in detail. I discussed that her mom is a moderate risk patient and that surgery/anesthesia carries the risk of . I made sure she understood her options, including expectant management (given the patient's age and her quality of life), inpatient surgical management with hysteroscopy, dilation and curettage, and pessary removal and replacement, as well as her option for outpatient management with endometrial biopsy in-office. The patient' s daughter desires to move forward with surgery understanding the risks including . Vitals reviewed today, BPs elevated. Patient afebrile. Pulse wnl. O2 sats 95% Exam: deferred ASSESSMENT/PLAN: 73yo here for postmenopausal bleeding with thickened endometrial stripe on US and pessary in place - Scheduled for surgery at 9am on Wednesday - R/B/A discussed at length, the patient's family agrees with the surgical plan and will provide consent - Planned procedure: Hysteroscopy, dilation and curettage, removal and replacement of pessary - Patient has undergone testing and cardiology has cleared her with moderate risk - Consents in chart awaiting signature by daughter of patient Call me with any questions or concerns regarding the above. Signed: MD Pastor Sanchez Carla M.D. Aug 05, 2018 16:57
--- NOTE | 2018-08-05 18:29 | Internal Med Progress Note ---
Subjective Physician Name Ari Mckeon Attending Physician Ari Mckeon MD Current Medications Medications (Trade) Dose Ordered Sig/Kannan Route PRN Reason Start Time Stop Time Status Last Admin Dose Admin Acetaminophen (Tylenol) 650 mg Q6H PRN ORAL Mild Pain/Temp > 100.5 07/29/18 07:00 08/28/18 06:59 Carvedilol (Coreg) 3.125 mg EVERY 12 HOURS ORAL 07/29/18 09:00 08/28/18 08:59 08/05/18 08:44 Clonidine HCl (Catapres Tab) 0.1 mg Q2HR PRN ORAL For High Blood Pressure >170 08/05/18 10:45 09/04/18 10:44 08/05/18 16:35 Dextrose (Dextrose 50%) 25 ml Q30M PRN IV Hypoglycemia 07/29/18 07:00 08/28/18 06:59 Dextrose (Dextrose 50%) 50 ml Q30M PRN IV Hypoglycemia 07/29/18 07:00 08/28/18 06:59 Enalaprilat (Vasotec) 1.25 mg Q3HR PRN IV For High Blood Pressure >170 08/05/18 10:45 09/04/18 10:44 Famotidine (Pepcid) 20 mg DAILY ORAL 07/29/18 09:00 08/28/18 08:59 08/05/18 08:44 Fluocinonide (Lidex) 1 applic DAILY TOPIC 07/29/18 10:00 08/28/18 09:59 08/05/18 08:49 Gabapentin (Neurontin) 300 mg BEDTIME ORAL 07/29/18 21:00 08/28/18 20:59 08/04/18 21:40 Insulin Aspart (NovoLOG) BEFORE MEALS AND HS SUBQ 07/29/18 11:30 08/28/18 11:29 08/04/18 21:43 Iron Sucrose 100 mg/Sodium Chloride 60 ml @ 240 mls/hr BEDTIME IV 08/01/18 21:00 08/05/18 21:14 08/04/18 21:41 Lorazepam (Ativan) 2 mg Q6H PRN ORAL For Anxiety 08/01/18 12:15 08/08/18 12:14 08/05/18 08:49 Olanzapine (ZyPREXA) 2.5 mg TID ORAL 08/01/18 13:00 08/31/18 12:59 08/05/18 16:35 Ondansetron HCl (Zofran) 4 mg Q4H PRN IVP Nausea & Vomiting 07/29/18 07:00 08/28/18 06:59 Piperacillin Sod/ Tazobactam Sod 3.375 gm/Sodium Chloride 110 ml @ 27.5 mls/hr Q8H IVPB 07/31/18 17:00 08/07/18 16:59 08/05/18 16:35 Sodium Chloride 1,000 ml @ 150 mls/hr Q6H40M IV 07/29/18 13:00 08/28/18 12:59 08/05/18 05:28 Allergies: Coded Allergies: NO KNOWN DRUG ALLERGIES (Verified Allergy, Unknown, 06/09/17) Subjective awake, responsive, agitated, daughter at bedside. Objective Last Vital Signs Date Time Temp Pulse Resp B/P (MAP) Pulse Ox O2 Delivery O2 Flow Rate FiO2 08/05/18 16:35 172/87 08/05/18 16:00 98.3 82 18 95 08/05/18 09:00 Room Air Laboratory Tests Test 08/05/18 06:15 White Blood Count 9.5 K/UL (4.8-10.8) Red Blood Count 3.26 M/UL (4.20-5.40) L Hemoglobin 9.6 G/DL (12.0-16.0) L Hematocrit 28.5 % (37.0-47.0) L Mean Corpuscular Volume 87 FL (80-99) Mean Corpuscular Hemoglobin 29.4 PG (27.0-31.0) Mean Corpuscular Hemoglobin Concent 33.6 G/DL (32.0-36.0) Red Cell Distribution Width 13.3 % (11.6-14.8) Platelet Count 264 K/UL (150-450) Mean Platelet Volume 6.5 FL (6.5-10.1) Neutrophils (%) (Auto) 68.7 % (45.0-75.0) Lymphocytes (%) (Auto) 17.2 % (20.0-45.0) L Monocytes (%) (Auto) 9.7 % (1.0-10.0) Eosinophils (%) (Auto) 3.4 % (0.0-3.0) H Basophils (%) (Auto) 1.0 % (0.0-2.0) Sodium Level 139 MMOL/L (136-145) Potassium Level 4.3 MMOL/L (3.5-5.1) Chloride Level 109 MMOL/L (98-107) H Carbon Dioxide Level 23 MMOL/L (21-32) Anion Gap 7 mmol/L (5-15) Blood Urea Nitrogen 9 mg/dL (7-18) Creatinine 1.1 MG/DL (0.55-1.30) Estimat Glomerular Filtration Rate mL/min (>60) Glucose Level 89 MG/DL (74-106) Calcium Level 8.6 MG/DL (8.5-10.1) Intake and Output 08/04/18 08/05/18 18:59 06:59 Intake Total 950.0 ml 210 ml Balance 950.0 ml 210 ml Intake Oral 240 ml IV Total 710.0 ml 210 ml # Voids 6 # Bowel Movements 3 Objective General: No acute distress, awake and agitated HEENT: NCAT, sclera anicteric, PERRL, EOMI. Neck: Supple, no significant jugular venous distention, Lungs: Good inspiratory effort, decrease air at bases, no Wheeze or Rales. Heart: Regular rate and rhythm, normal S1/S2, no murmur. Abdomen: soft, nontender, nondistended. Normoactive bowel sounds. Extremities: No Cyanosis , clubbing or edema. Neuro: A&O x 3, Able to move all extremities Skin: warm, no rashes or lesions Psych: Normal mood and affect Assessment/Plan Assessment/Plan ASSESSMENT: This is a 73-year-old female. 1. Postmenopausal vaginal bleeding. 2. Probable endometrial cancer versus endometrial hyperplasia. 3. Pelvic pain. 4. Diabetes type 2. 5. Hypercholesterolemia. 6. Severe anemia-blood loss 7. Agitation TREATMENT: 1. Postmenopausal vaginal bleeding/endometrial hyperplasia. A MOTOR VEHICLES SUPERVISOR consultation has been obtained with Dr. Torrez. We will follow recommendations of MOTOR VEHICLES SUPERVISOR. The patient will require an endometrial biopsy under anesthesia during this hospitalization-see MOTOR VEHICLES SUPERVISOR note. A cardiology consult has been obtained with Dr Shaw for clearance for surgery. An Oncology consultation with Dr. Cruzito Willson. 2. Diabetes type 2. Regular insulin sliding scale has been instituted. 3. Hypercholesterolemia. Continue Lipitor. 4. Hypertension. Continue Coreg. 5. S/P Transfusion 2 unit PRBC per heme/onc-Dr Willson 6. Ativan PRN; see psych consult 7. See cardiology clearance for surgery-ok to proceed with endometrial biopsy under anesthesia Discuss with daughter at bedside Surgery schedule for Wednesday. Ari Mckeon MD Aug 05, 2018 18:29
[2018-08-05 20:00] VITALS: BP 148/69
--- NOTE | 2018-08-05 20:00 | NUR ---
NURSE NOTES: Patient in bed, asleep. Family (Her daughter) is at bedside. Patient noted with bilateral soft wrist restraints. Kept clean and comfortable. Bed in low position, locked. Provided safe environment. Call light is at bedside. Skin is intact, warm and dry to touch. IV site is noted, patent and asymptomatic. Will continue to monitor pt and her plan of care.
--- NOTE | 2018-08-05 20:03 | NUR ---
NURSE NOTES: Patient in bed, asleep. Family is at bedside. Patient noted with bilateral soft wrist restraints. Kept clean and comfortable. Bed in low and locked position. Provided safe environment. Call light is at bedside. Skin is intact, warm and dry to touch. IV site is noted, iv fluid is infusing as ordered. Will continue plan of care.
[2018-08-05] MEDS: Iron Sucrose 100 MG in NS 55 ML IV SCH (22:03)
--- NOTE | 2018-08-05 23:09 | General Progress Note ---
Assessment/Plan Assessment/Plan ASSESSMENT: # Endometrial thickening, concerning for infection or neoplasm given findings on recent CT scan, with Postmenopausal vaginal bleeding/endometrial hyperplasia, A ADVERTISING STATISTICAL CLERK consultation has been obtained --> appreciate WORKERS COMPENSATION CLAIMS ANALYST recs --> need tissue pathology --> imaging has been reviewed # Anemia of iron deficiency --> Anemia workup has been reviewed, Ferritin 13 --> No evidence of hemolysis is noted, peripheral smear has been reviewed. --> Hgb goal >7. Transfuse prn. --> Medications have been reviewed --> HGB trend: 8--> 7->6.8-->8-->10->11 ==> started on iv iron 100mg iv daily x 5 days # Leukocytosis/Elevated white blood cell count, unspecified likely related to underlying stress reaction, smoking, or underlying infection (especially if bandemia is noted) --> have reviewed peripheral smear and bandemia/neutrophilia noted --> continue antibiotics if they have been started by ID team --> monitor for resolution # Pelvic pain. # Diabetes type 2, regular insulin sliding scale has been instituted. # Hypercholesterolemia, Continue Lipitor as above The timing of this note does not necessarily reflect the time of the patient was seen. Greatly appreciate consultation! Subjective Allergies: Coded Allergies: NO KNOWN DRUG ALLERGIES (Verified Allergy, Unknown, 06/09/17) Subjective 07/31: Seen by bedside, hgb 6.8, will receive prbc, Awaiting ADVERTISING STATISTICAL CLERK consult. 08/01: Pt is awake, comfortable, no events reported, hgb 8 08/02: awake, comfortable, no acute distress reported. 08/03: seen resting in bed, echo and CXR reviewed, no events, Await cardiology clearance for endometrial biopsy under anesthesia 08/04: Pt is resting in bed, cardiology consult done today, pending biopsy, no events 08/05: comfortable, no events Objective Last 24 Hour Vital Signs Date Time Temp Pulse Resp B/P (MAP) Pulse Ox O2 Delivery O2 Flow Rate FiO2 08/05/18 22:04 81 148/69 08/05/18 21:00 Room Air 08/05/18 20:00 99.9 81 18 148/69 (95) 95 08/05/18 16:35 172/87 08/05/18 16:00 98.3 82 18 172/87 (115) 95 08/05/18 12:00 98.4 77 20 166/81 (109) 95 08/05/18 09:00 Room Air 08/05/18 08:44 79 160/75 08/05/18 08:00 98.0 88 20 172/94 (120) 96 08/05/18 04:00 98.0 79 18 160/75 (103) 08/05/18 00:00 98.9 92 18 174/88 (116) 96 Intake and Output 08/04/18 08/05/18 18:59 06:59 Intake Total 950.0 ml 210 ml Balance 950.0 ml 210 ml Intake Oral 240 ml IV Total 710.0 ml 210 ml # Voids 6 # Bowel Movements 3 Laboratory Tests 08/05/18 06:15: White Blood Count 9.5, Red Blood Count 3.26L, Hemoglobin 9.6L, Hematocrit 28.5L , Mean Corpuscular Volume 87, Mean Corpuscular Hemoglobin 29.4, Mean Corpuscular Hemoglobin Concent 33.6, Red Cell Distribution Width 13.3, Platelet Count 264, Mean Platelet Volume 6.5, Neutrophils (%) (Auto) 68.7, Lymphocytes (% ) (Auto) 17.2L, Monocytes (%) (Auto) 9.7, Eosinophils (%) (Auto) 3.4H, Basophils (%) (Auto) 1.0, Sodium Level 139, Potassium Level 4.3, Chloride Level 109H, Carbon Dioxide Level 23, Anion Gap 7, Blood Urea Nitrogen 9, Creatinine 1.1, Estimat Glomerular Filtration Rate , Glucose Level 89, Calcium Level 8.6 Height (Feet): 5 Height (Inches): 0.00 Weight (Pounds): 151 Objective PHYSICAL EXAMINATION: VITAL SIGNS: Reviewed GENERAL: The patient is a well-developed and well-nourished female, in no apparent distress. HEENT: Eyes - pupils are equal and responsive to light and accommodation. Extraocular movements are intact. NECK: Supple without lymphadenopathy. CHEST: Lungs are clear to auscultation bilaterally without wheezes or rales. CARDIOVASCULAR: Regular rhythm and rate. S1 and S2 are normal without murmurs , rubs, or gallops. ABDOMEN: Soft, nontender, and nondistended. Positive bowel sounds. No evidence of hepatosplenomegaly. Currently, no rebound or guarding noted. EXTREMITIES: Negative for clubbing, cyanosis, or edema. NEUROLOGIC: Cranial nerves II through XII are grossly intact without focal deficits. Motor strength is 5/5 bilaterally. Deep tendon reflexes are 2+ plantar. Cruzito Willson MD Aug 05, 2018 23:09
[2018-08-06] VITALS: BP 102/54
[2018-08-06] MEDS: Zoysn 3.37gm in NS 100ML IVPB SCH ×3 (00:48→19:08)
[2018-08-06 04:00] VITALS: BP 129/63
[2018-08-06] MEDS: NovoLOG Insulin Flexpen SUBQ SCH ×4 (05:41→21:17)
--- NOTE | 2018-08-06 07:21 | NUR ---
HAND-OFF: Report given to Marcy Rucker.
--- NOTE | 2018-08-06 07:41 | NUR ---
NURSE NOTES: received patient lying in bed, in room air, asleep, in NAD. Receives Right hand IV access, being infused IVF, no infiltration noted. Patient on bilateral soft wrist restraints, skin intact under restraints. Bed locked at the lowest position possible, bed alarm on, call light within easy reach, siderails upx3 for safety. Will continue to monitor patient and follow up with the plan of care.
[2018-08-06 08:00] VITALS: BP 132/53
[2018-08-06] MEDS: Fluocinonide 15gm Cream TOPIC SCH (09:04)
[2018-08-06] MEDS: OLANZapine 2.5mg tab ORAL SCH ×3 (09:05→17:12)
[2018-08-06 12:00] VITALS: BP 144/73
--- NOTE | 2018-08-06 15:51 | Internal Med Progress Note ---
Subjective Physician Name Ari Mckeon Attending Physician Ari Mckeon MD Current Medications Medications (Trade) Dose Ordered Sig/Kannan Route PRN Reason Start Time Stop Time Status Last Admin Dose Admin Acetaminophen (Tylenol) 650 mg Q6H PRN ORAL Mild Pain/Temp > 100.5 07/29/18 07:00 08/28/18 06:59 08/06/18 09:09 Carvedilol (Coreg) 3.125 mg EVERY 12 HOURS ORAL 07/29/18 09:00 08/28/18 08:59 08/06/18 09:04 Clonidine HCl (Catapres Tab) 0.1 mg Q2HR PRN ORAL For High Blood Pressure >170 08/05/18 10:45 09/04/18 10:44 08/05/18 16:35 Dextrose (Dextrose 50%) 25 ml Q30M PRN IV Hypoglycemia 07/29/18 07:00 08/28/18 06:59 Dextrose (Dextrose 50%) 50 ml Q30M PRN IV Hypoglycemia 07/29/18 07:00 08/28/18 06:59 Enalaprilat (Vasotec) 1.25 mg Q3HR PRN IV For High Blood Pressure >170 08/05/18 10:45 09/04/18 10:44 Famotidine (Pepcid) 20 mg DAILY ORAL 07/29/18 09:00 08/28/18 08:59 08/06/18 09:04 Fluocinonide (Lidex) 1 applic DAILY TOPIC 07/29/18 10:00 08/28/18 09:59 08/06/18 09:04 Gabapentin (Neurontin) 300 mg BEDTIME ORAL 07/29/18 21:00 08/28/18 20:59 08/05/18 22:04 Insulin Aspart (NovoLOG) BEFORE MEALS AND HS SUBQ 07/29/18 11:30 08/28/18 11:29 08/06/18 14:45 Lorazepam (Ativan) 2 mg Q6H PRN ORAL For Anxiety 08/01/18 12:15 08/08/18 12:14 08/05/18 08:49 Olanzapine (ZyPREXA) 2.5 mg TID ORAL 08/01/18 13:00 08/31/18 12:59 08/06/18 14:43 Ondansetron HCl (Zofran) 4 mg Q4H PRN IVP Nausea & Vomiting 07/29/18 07:00 08/28/18 06:59 Piperacillin Sod/ Tazobactam Sod 3.375 gm/Sodium Chloride 110 ml @ 27.5 mls/hr Q8H IVPB 07/31/18 17:00 08/07/18 16:59 08/06/18 09:03 Sodium Chloride 1,000 ml @ 150 mls/hr Q6H40M IV 07/29/18 13:00 08/28/18 12:59 08/06/18 14:43 Allergies: Coded Allergies: NO KNOWN DRUG ALLERGIES (Verified Allergy, Unknown, 06/09/17) Subjective awake, responsive, talking, less agitated. Objective Last Vital Signs Date Time Temp Pulse Resp B/P (MAP) Pulse Ox O2 Delivery O2 Flow Rate FiO2 08/06/18 12:00 97.2 75 18 144/73 (96) 95 08/06/18 09:00 Room Air Intake and Output 08/05/18 08/06/18 19:00 07:00 Intake Total 360 ml 600 ml Balance 360 ml 600 ml Intake Oral 360 ml IV Total 600 ml # Voids 3 2 Objective General: No acute distress, awake and less agitated HEENT: NCAT, sclera anicteric, PERRL, EOMI. Neck: Supple, no significant jugular venous distention, Lungs: Fair inspiratory effort, decrease air at bases, no Wheeze or Rales. Heart: Regular rate and rhythm, normal S1/S2, no murmur. Abdomen: soft, nontender, nondistended. Normoactive bowel sounds. Extremities: No Cyanosis , clubbing or edema. Neuro: A&O x 3, Able to move all extremities Skin: warm, no rashes or lesions Psych: Normal mood and affect Assessment/Plan Assessment/Plan ASSESSMENT: This is a 73-year-old female. 1. Postmenopausal vaginal bleeding. 2. Probable endometrial cancer versus endometrial hyperplasia. 3. Pelvic pain. 4. Diabetes type 2. 5. Hypercholesterolemia. 6. Severe anemia due to acute blood loss 7. Agitation TREATMENT: 1. Postmenopausal vaginal bleeding/endometrial hyperplasia. A BUSINESS CONTROLLER consultation has been obtained with Dr. Torrez. We will follow recommendations of BUSINESS CONTROLLER. The patient will require an endometrial biopsy under anesthesia during this hospitalization-see BUSINESS CONTROLLER note. A cardiology consult has been obtained with Dr Shaw for clearance for surgery. An Oncology consultation with Dr. Cruzito Willson. 2. Diabetes type 2. Regular insulin sliding scale has been instituted. 3. Hypercholesterolemia. Continue Lipitor. 4. Hypertension. Continue Coreg. 5. S/P Transfusion 2 unit PRBC 6. Ativan PRN; see psych consult 7. See cardiology clearance for surgery-ok to proceed with endometrial biopsy under anesthesia Surgery schedule for Wednesday. Ari Mckeon MD Aug 06, 2018 15:51
[2018-08-06] MEDS ORDERED: NS 275ml ONE (15:52)
[2018-08-06 16:00] VITALS: BP 147/78
--- NOTE | 2018-08-06 16:27 | Cardiac Electrophysiology PN ---
Assessment/Plan Assessment/Plan 1. Hypertension. On Coreg 3.125 mg b.i.d. Echo EF 65% 2. Hyperlipidemia. 3. Vaginal bleeding. NSR. NL EF. No prior CO or CHF. OK to proceed with surgery at moderate risk Ok to proceed with OPTICAL WORKER surgery on Wednesday 4. Psychosis, on Zyprexa. 5. Alcohol dependence. 6. Lice infestation. DW Dr Mckeon Subjective Subjective Comfortable in NAD. No CP or SOB. Sitter at bedside Objective Last 24 Hour Vital Signs Date Time Temp Pulse Resp B/P (MAP) Pulse Ox O2 Delivery O2 Flow Rate FiO2 08/06/18 12:00 97.2 75 18 144/73 (96) 95 08/06/18 09:39 98.4 08/06/18 09:04 85 132/53 08/06/18 09:00 Room Air 08/06/18 08:00 98.4 85 20 132/53 (79) 94 08/06/18 04:00 98.4 75 18 129/63 (85) 95 08/06/18 00:00 97.2 72 18 102/54 (70) 96 08/05/18 22:04 81 148/69 08/05/18 21:00 Room Air 08/05/18 20:00 99.9 81 18 148/69 (95) 95 08/05/18 16:35 172/87 Intake and Output 08/05/18 08/06/18 19:00 07:00 Intake Total 360 ml 600 ml Balance 360 ml 600 ml Intake Oral 360 ml IV Total 600 ml # Voids 3 2 Objective HEAD AND NECK: No JVD. LUNGS: Clear. CARDIOVASCULAR: Regular S1 and S2 with no gallop or murmur. ABDOMEN: Soft. EXTREMITIES: No pitting edema. SKIN: The patient has history of scabies. Abelardo Shaw MD Aug 06, 2018 16:27
--- NOTE | 2018-08-06 16:38 | Pulmonology Progress Note ---
Assessment/Plan Problems: (1) Uterine malignancy (2) Anemia (3) UTI (urinary tract infection) (4) Abnormal vaginal bleeding (5) Diabetes mellitus (6) Incontinence Assessment/Plan all reviewed prbc again, Hem is 8 SNATH HANDLE ASSEMBLER reviewed sliding scale echo and CXR reviewed Cardiology consult requested,pending clearance for surgery Subjective Constitutional: Reports: no symptoms HEENT: Repors: no symptoms Allergies: Coded Allergies: NO KNOWN DRUG ALLERGIES (Verified Allergy, Unknown, 06/09/17) Objective Last 24 Hour Vital Signs Date Time Temp Pulse Resp B/P (MAP) Pulse Ox O2 Delivery O2 Flow Rate FiO2 08/06/18 12:00 97.2 75 18 144/73 (96) 95 08/06/18 09:39 98.4 08/06/18 09:04 85 132/53 08/06/18 09:00 Room Air 08/06/18 08:00 98.4 85 20 132/53 (79) 94 08/06/18 04:00 98.4 75 18 129/63 (85) 95 08/06/18 00:00 97.2 72 18 102/54 (70) 96 08/05/18 22:04 81 148/69 08/05/18 21:00 Room Air 08/05/18 20:00 99.9 81 18 148/69 (95) 95 Intake and Output 08/05/18 08/06/18 19:00 07:00 Intake Total 360 ml 600 ml Balance 360 ml 600 ml Intake Oral 360 ml IV Total 600 ml # Voids 3 2 Objective General Appearance: WD/WN HEENT: normocephalic, atraumatic Respiratory/Chest: chest wall non-tender, lungs clear Cardiovascular: normal peripheral pulses, normal rate Abdomen: normal bowel sounds, soft, non tender Extremities: no cyanosis Skin: no ulcers Current Medications Medications (Trade) Dose Ordered Sig/Kannan Route PRN Reason Start Time Stop Time Status Last Admin Dose Admin Acetaminophen (Tylenol) 650 mg Q6H PRN ORAL Mild Pain/Temp > 100.5 07/29/18 07:00 08/28/18 06:59 08/06/18 09:09 Carvedilol (Coreg) 3.125 mg EVERY 12 HOURS ORAL 07/29/18 09:00 08/28/18 08:59 08/06/18 09:04 Clonidine HCl (Catapres Tab) 0.1 mg Q2HR PRN ORAL For High Blood Pressure >170 08/05/18 10:45 09/04/18 10:44 08/05/18 16:35 Dextrose (Dextrose 50%) 25 ml Q30M PRN IV Hypoglycemia 07/29/18 07:00 08/28/18 06:59 Dextrose (Dextrose 50%) 50 ml Q30M PRN IV Hypoglycemia 07/29/18 07:00 08/28/18 06:59 Enalaprilat (Vasotec) 1.25 mg Q3HR PRN IV For High Blood Pressure >170 08/05/18 10:45 09/04/18 10:44 Famotidine (Pepcid) 20 mg DAILY ORAL 07/29/18 09:00 08/28/18 08:59 08/06/18 09:04 Fluocinonide (Lidex) 1 applic DAILY TOPIC 07/29/18 10:00 08/28/18 09:59 08/06/18 09:04 Gabapentin (Neurontin) 300 mg BEDTIME ORAL 07/29/18 21:00 08/28/18 20:59 08/05/18 22:04 Insulin Aspart (NovoLOG) BEFORE MEALS AND HS SUBQ 07/29/18 11:30 08/28/18 11:29 08/06/18 14:45 Lorazepam (Ativan) 2 mg Q6H PRN ORAL For Anxiety 08/01/18 12:15 08/08/18 12:14 08/05/18 08:49 Olanzapine (ZyPREXA) 2.5 mg TID ORAL 08/01/18 13:00 08/31/18 12:59 08/06/18 14:43 Ondansetron HCl (Zofran) 4 mg Q4H PRN IVP Nausea & Vomiting 07/29/18 07:00 08/28/18 06:59 Piperacillin Sod/ Tazobactam Sod 3.375 gm/Sodium Chloride 110 ml @ 27.5 mls/hr Q8H IVPB 07/31/18 17:00 08/07/18 16:59 08/06/18 09:03 Sodium Chloride 1,000 ml @ 150 mls/hr Q6H40M IV 07/29/18 13:00 08/28/18 12:59 08/06/18 14:43 Oscar Quezada MD Aug 06, 2018 16:38
--- NOTE | 2018-08-06 16:39 | NUR ---
MACHINE ASSEMBLERLICENSED STAFF MFT SI:ANEMIA . VAGINAL BLEEDING . UTERINE TUMOR . R/O ACUTE UTERINE CARCINOMA VS: BP 166/84, P 85, T 97.2, RR 16, SpO2 95 IS: ZYPREXA 2.5mg ATIVAN 2mg PIPERACILLIN 110ml IVPB GABAPENTIN 300mg COREG 3.125mg FAMOTIDINE 20mg MED/SURG STATUS
[2018-08-06] MEDS: LORazepam 1mg tab ORAL PRN (17:14)
[2018-08-06 20:00] VITALS: BP 166/84
--- NOTE | 2018-08-06 20:01 | NUR ---
HAND-OFF: Report given to MARYANNE Yoo.
--- NOTE | 2018-08-06 20:10 | NUR ---
Received patient in bed. On RA, no SOB, no acute distress. On Pilo. soft restraints on B wrists. No circulation issue or pain noted. Pt still agitated, cont to try to get out of bed. IV on R hand occluded. Bed in lowest position, locked ,alarms on. Call light in reach. Will insert new IV soon.
[2018-08-07] VITALS (8 sets, daily range): BP systolic 119–187; BP diastolic 61–106
[2018-08-07] MEDS: Zoysn 3.37gm in NS 100ML IVPB SCH ×2 (00:03→09:48)
[2018-08-07] MEDS: LORazepam 1mg tab ORAL PRN ×2 (00:13→19:59)
[2018-08-07] MEDS: NovoLOG Insulin Flexpen SUBQ SCH ×4 (05:53→20:04)
--- NOTE | 2018-08-07 07:11 | NUR ---
HAND-OFF: Report given to Alka MADDEN.
--- NOTE | 2018-08-07 07:39 | NUR ---
NURSE NOTES: received patient lying on bed, awake, no agitation noted, in NAD. Receives IVF through RFA IV access, no sign of infiltration noted. Patient on bilateral soft wrist restraints, skin intact under restraints. Bed locked at the lowest position possible, bed alarm on, call light within easy reach, siderails upx3 for safety. Will continue to monitor patient and follow up with the plan of care.
[2018-08-07] MEDS: OLANZapine 2.5mg tab ORAL SCH ×3 (09:42→19:20)
[2018-08-07] MEDS: Fluocinonide 15gm Cream TOPIC SCH (09:44)
--- NOTE | 2018-08-07 14:52 | Internal Med Progress Note ---
Subjective Physician Name Ari Mckeon Attending Physician Ari Mckeon MD Current Medications Medications (Trade) Dose Ordered Sig/Kannan Route PRN Reason Start Time Stop Time Status Last Admin Dose Admin Acetaminophen (Tylenol) 650 mg Q6H PRN ORAL Mild Pain/Temp > 100.5 07/29/18 07:00 08/28/18 06:59 08/06/18 09:09 Carvedilol (Coreg) 3.125 mg EVERY 12 HOURS ORAL 07/29/18 09:00 08/28/18 08:59 08/07/18 09:42 Clonidine HCl (Catapres Tab) 0.1 mg Q2HR PRN ORAL For High Blood Pressure >170 08/05/18 10:45 09/04/18 10:44 08/07/18 00:03 Dextrose (Dextrose 50%) 25 ml Q30M PRN IV Hypoglycemia 07/29/18 07:00 08/28/18 06:59 Dextrose (Dextrose 50%) 50 ml Q30M PRN IV Hypoglycemia 07/29/18 07:00 08/28/18 06:59 Enalaprilat (Vasotec) 1.25 mg Q3HR PRN IV For High Blood Pressure >170 08/05/18 10:45 09/04/18 10:44 Famotidine (Pepcid) 20 mg DAILY ORAL 07/29/18 09:00 08/28/18 08:59 08/07/18 09:44 Fluocinonide (Lidex) 1 applic DAILY TOPIC 07/29/18 10:00 08/28/18 09:59 08/07/18 09:44 Gabapentin (Neurontin) 300 mg BEDTIME ORAL 07/29/18 21:00 08/28/18 20:59 08/06/18 21:25 Insulin Aspart (NovoLOG) BEFORE MEALS AND HS SUBQ 07/29/18 11:30 08/28/18 11:29 08/07/18 05:53 Lorazepam (Ativan) 2 mg Q6H PRN ORAL For Anxiety 08/01/18 12:15 08/08/18 12:14 08/07/18 00:13 Olanzapine (ZyPREXA) 2.5 mg TID ORAL 08/01/18 13:00 08/31/18 12:59 08/07/18 13:59 Ondansetron HCl (Zofran) 4 mg Q4H PRN IVP Nausea & Vomiting 07/29/18 07:00 08/28/18 06:59 Piperacillin Sod/ Tazobactam Sod 3.375 gm/Sodium Chloride 110 ml @ 27.5 mls/hr Q8H IVPB 07/31/18 17:00 08/07/18 16:59 08/07/18 09:48 Sodium Chloride 1,000 ml @ 150 mls/hr Q6H40M IV 07/29/18 13:00 08/28/18 12:59 08/06/18 22:00 Allergies: Coded Allergies: NO KNOWN DRUG ALLERGIES (Verified Allergy, Unknown, 06/09/17) Subjective awake, alert, responsive, talking, less agitated. Objective Last Vital Signs Date Time Temp Pulse Resp B/P (MAP) Pulse Ox O2 Delivery O2 Flow Rate FiO2 08/07/18 12:00 97.3 67 20 159/74 (102) 99 08/07/18 09:00 Room Air Intake and Output 08/06/18 08/07/18 19:00 07:00 Intake Total 875.0 ml 970.0 ml Balance 875.0 ml 970.0 ml Intake Oral 240 ml 260 ml IV Total 635.0 ml 710.0 ml # Voids 4 3 Objective General: No acute distress, awake and less agitated HEENT: NCAT, sclera anicteric, PERRL, EOMI. Neck: Supple, no significant jugular venous distention, Lungs: Fair inspiratory effort, decrease air at bases, no Wheeze or Rales. Heart: Regular rate and rhythm, normal S1/S2, no murmur. Abdomen: soft, nontender, nondistended. Normoactive bowel sounds. Extremities: No Cyanosis , clubbing or edema. Neuro: A&O x 3, Able to move all extremities Skin: warm, no rashes or lesions Psych: Normal mood and affect Assessment/Plan Assessment/Plan ASSESSMENT: This is a 73-year-old female. 1. Postmenopausal vaginal bleeding. 2. Probable endometrial cancer versus endometrial hyperplasia. 3. Pelvic pain. 4. Diabetes type 2. 5. Hypercholesterolemia. 6. Severe anemia due to acute blood loss 7. Agitation TREATMENT: 1. Postmenopausal vaginal bleeding/endometrial hyperplasia. A APPRAISER consultation has been obtained with Dr. Torrez. We will follow recommendations of APPRAISER. The patient will require an endometrial biopsy under anesthesia during this hospitalization-see APPRAISER note. A cardiology consult has been obtained with Dr Shaw for clearance for surgery. An Oncology consultation with Dr. Cruzito Willson. 2. Diabetes type 2. Regular insulin sliding scale has been instituted. 3. Hypercholesterolemia. Continue Lipitor. 4. Hypertension. Continue Coreg. 5. S/P Transfusion 2 unit PRBC 6. Ativan PRN; see psych consult 7. See cardiology clearance for surgery-ok to proceed with endometrial biopsy under anesthesia Surgery schedule for Wednesday. Ari Mckeon MD Aug 07, 2018 14:52
--- NOTE | 2018-08-07 16:55 | NUR ---
CRAY[employer] T[employer]ER [employer]ERRYBOAT IS:ANEMIA . VAGINAL BLEEDING . UTERINE TUMOR . R/O ACUTE UTERINE CARCINOMA VS: BP 151/92, P 90, T 97.7, RR 18, SpO2 93 IS: ZYPREXA 2.5mg ATIVAN 2mg PIPERACILLIN 110ml IVPB GABAPENTIN 300mg COREG 3.125mg FAMOTIDINE 20mg LORAZEPAM 2mg LIDEX MED/SURG STATUS
--- NOTE | 2018-08-07 17:00 | Pulmonology Progress Note ---
Assessment/Plan Problems: (1) Uterine malignancy (2) Anemia (3) UTI (urinary tract infection) (4) Abnormal vaginal bleeding (5) Diabetes mellitus (6) Incontinence Assessment/Plan curved plastic cap with smooth surface, endometrium is benign all reviewed prbc again, Hem is 8 LINING PARTS SEWER reviewed sliding scale echo and CXR reviewed Cardiology consult requested,pending clearance for surgery Subjective Constitutional: Reports: no symptoms HEENT: Repors: no symptoms Respiratory: Reports: no symptoms Allergies: Coded Allergies: NO KNOWN DRUG ALLERGIES (Verified Allergy, Unknown, 06/09/17) Objective Last 24 Hour Vital Signs Date Time Temp Pulse Resp B/P (MAP) Pulse Ox O2 Delivery O2 Flow Rate FiO2 08/07/18 16:00 97.0 84 20 119/77 (91) 97 08/07/18 12:00 97.3 67 20 159/74 (102) 99 08/07/18 09:42 67 138/72 08/07/18 09:00 Room Air 08/07/18 08:00 97.2 67 20 138/72 (94) 99 08/07/18 04:00 98.1 72 16 146/75 (98) 97 08/07/18 00:50 79 17 137/61 (86) 93 08/07/18 00:03 187/95 08/07/18 00:00 98.5 87 17 187/95 (125) 92 08/06/18 21:25 79 166/84 08/06/18 21:00 Room Air 08/06/18 20:00 98.0 79 16 166/84 (111) 95 Intake and Output 08/06/18 08/07/18 19:00 07:00 Intake Total 875.0 ml 1120.0 ml Balance 875.0 ml 1120.0 ml Intake Oral 240 ml 260 ml IV Total 635.0 ml 860.0 ml # Voids 4 3 Objective General Appearance: WD/WN HEENT: normocephalic, atraumatic Respiratory/Chest: chest wall non-tender, lungs clear Cardiovascular: normal peripheral pulses, normal rate Abdomen: normal bowel sounds, soft, non tender Extremities: no cyanosis Skin: no ulcers Current Medications Medications (Trade) Dose Ordered Sig/Kannan Route PRN Reason Start Time Stop Time Status Last Admin Dose Admin Acetaminophen (Tylenol) 650 mg Q6H PRN ORAL Mild Pain/Temp > 100.5 07/29/18 07:00 08/28/18 06:59 08/06/18 09:09 Carvedilol (Coreg) 3.125 mg EVERY 12 HOURS ORAL 07/29/18 09:00 08/28/18 08:59 08/07/18 09:42 Clonidine HCl (Catapres Tab) 0.1 mg Q2HR PRN ORAL For High Blood Pressure >170 08/05/18 10:45 09/04/18 10:44 08/07/18 00:03 Dextrose (Dextrose 50%) 25 ml Q30M PRN IV Hypoglycemia 07/29/18 07:00 08/28/18 06:59 Dextrose (Dextrose 50%) 50 ml Q30M PRN IV Hypoglycemia 07/29/18 07:00 08/28/18 06:59 Enalaprilat (Vasotec) 1.25 mg Q3HR PRN IV For High Blood Pressure >170 08/05/18 10:45 09/04/18 10:44 Famotidine (Pepcid) 20 mg DAILY ORAL 07/29/18 09:00 08/28/18 08:59 08/07/18 09:44 Fluocinonide (Lidex) 1 applic DAILY TOPIC 07/29/18 10:00 08/28/18 09:59 08/07/18 09:44 Gabapentin (Neurontin) 300 mg BEDTIME ORAL 07/29/18 21:00 08/28/18 20:59 08/06/18 21:25 Insulin Aspart (NovoLOG) BEFORE MEALS AND HS SUBQ 07/29/18 11:30 08/28/18 11:29 08/07/18 05:53 Lorazepam (Ativan) 2 mg Q6H PRN ORAL For Anxiety 08/01/18 12:15 08/08/18 12:14 08/07/18 00:13 Olanzapine (ZyPREXA) 2.5 mg TID ORAL 08/01/18 13:00 08/31/18 12:59 08/07/18 13:59 Ondansetron HCl (Zofran) 4 mg Q4H PRN IVP Nausea & Vomiting 07/29/18 07:00 08/28/18 06:59 Sodium Chloride 1,000 ml @ 150 mls/hr Q6H40M IV 3/8/19 13:00 08/28/18 12:59 08/07/18 16:40 Oscar Quezada MD Aug 07, 2018 17:00
--- NOTE | 2018-08-07 19:55 | NUR ---
HAND-OFF: Report given to MARYANNE Yoo.
--- NOTE | 2018-08-07 22:48 | General Progress Note ---
Assessment/Plan Problem List: (1) Acute metabolic encephalopathy ICD Codes: G93.41 - Metabolic encephalopathy SNOMED: 94220843, 862361312 (2) Alcohol dependence ICD Codes: F10.20 - Alcohol dependence, uncomplicated SNOMED: 23095816, 414754241 Status: stable Assessment/Plan Zyprexa 5mg po tid Ativan prn cont restraints Subjective Neurologic/Psychiatric: Reports: anxiety, depressed, emotional problems Allergies: Coded Allergies: NO KNOWN DRUG ALLERGIES (Verified Allergy, Unknown, 06/09/17) Subjective the pt cont to have episodes of agitation confused Objective Last 24 Hour Vital Signs Date Time Temp Pulse Resp B/P (MAP) Pulse Ox O2 Delivery O2 Flow Rate FiO2 08/07/18 21:00 Room Air 08/07/18 20:30 90 145/97 (113) 08/07/18 20:12 90 145/107 08/07/18 20:00 97.9 93 20 182/106 (131) 95 08/07/18 19:45 182/106 08/07/18 16:00 97.0 84 20 119/77 (91) 97 08/07/18 12:00 97.3 67 20 159/74 (102) 99 08/07/18 09:42 67 138/72 08/07/18 09:00 Room Air 08/07/18 08:00 97.2 67 20 138/72 (94) 99 08/07/18 04:00 98.1 72 16 146/75 (98) 97 08/07/18 00:50 79 17 137/61 (86) 93 08/07/18 00:03 187/95 08/07/18 00:00 98.5 87 17 187/95 (125) 92 Intake and Output 08/06/18 08/07/18 19:00 07:00 Intake Total 875.0 ml 1120.0 ml Balance 875.0 ml 1120.0 ml Intake Oral 240 ml 260 ml IV Total 635.0 ml 860.0 ml # Voids 4 3 Height (Feet): 5 Height (Inches): 0.00 Weight (Pounds): 151 General Appearance: alert, confused, agitated Tip Frazier MD Aug 07, 2018 22:48
--- NOTE | 2018-08-07 22:55 | General Progress Note ---
Assessment/Plan Assessment/Plan ASSESSMENT: # Endometrial thickening, concerning for infection or neoplasm given findings on recent CT scan, with Postmenopausal vaginal bleeding/endometrial hyperplasia, A CR[employer] RIGGER consultation has been obtained --> appreciate [employer] recs --> need tissue pathology --> imaging has been reviewed # Anemia of iron deficiency --> Anemia workup has been reviewed, Ferritin 13 --> No evidence of hemolysis is noted, peripheral smear has been reviewed. --> Hgb goal >7. Transfuse prn. --> Medications have been reviewed --> HGB trend: 8--> 7->6.8-->8-->10->11 ==> started on iv iron 100mg iv daily x 5 days # Leukocytosis/Elevated white blood cell count, unspecified likely related to underlying stress reaction, smoking, or underlying infection (especially if bandemia is noted) --> have reviewed peripheral smear and bandemia/neutrophilia noted --> continue antibiotics if they have been started by ID team --> monitor for resolution # Pelvic pain. # Diabetes type 2, regular insulin sliding scale has been instituted. # Hypercholesterolemia, Continue Lipitor as above The timing of this note does not necessarily reflect the time of the patient was seen. Greatly appreciate consultation! Subjective Allergies: Coded Allergies: NO KNOWN DRUG ALLERGIES (Verified Allergy, Unknown, 06/09/17) Subjective 07/31: Seen by bedside, hgb 6.8, will receive prbc, Awaiting CRANE RIGGER consult. 08/01: Pt is awake, comfortable, no events reported, hgb 8 08/02: awake, comfortable, no acute distress reported. 08/03: seen resting in bed, echo and CXR reviewed, no events, Await cardiology clearance for endometrial biopsy under anesthesia 08/04: Pt is resting in bed, cardiology consult done today, pending biopsy, no events 08/05: comfortable, no events 08/07: seen by bedside,confused no acute distress Objective Last 24 Hour Vital Signs Date Time Temp Pulse Resp B/P (MAP) Pulse Ox O2 Delivery O2 Flow Rate FiO2 08/07/18 21:00 Room Air 08/07/18 20:30 90 145/97 (113) 08/07/18 20:12 90 145/107 08/07/18 20:00 97.9 93 20 182/106 (131) 95 08/07/18 19:45 182/106 08/07/18 16:00 97.0 84 20 119/77 (91) 97 08/07/18 12:00 97.3 67 20 159/74 (102) 99 08/07/18 09:42 67 138/72 08/07/18 09:00 Room Air 08/07/18 08:00 97.2 67 20 138/72 (94) 99 08/07/18 04:00 98.1 72 16 146/75 (98) 97 08/07/18 00:50 79 17 137/61 (86) 93 08/07/18 00:03 187/95 08/07/18 00:00 98.5 87 17 187/95 (125) 92 Intake and Output 08/06/18 08/07/18 19:00 07:00 Intake Total 875.0 ml 1120.0 ml Balance 875.0 ml 1120.0 ml Intake Oral 240 ml 260 ml IV Total 635.0 ml 860.0 ml # Voids 4 3 Height (Feet): 5 Height (Inches): 0.00 Weight (Pounds): 151 Objective PHYSICAL EXAMINATION: VITAL SIGNS: Reviewed GENERAL: The patient is a well-developed and well-nourished female, in no apparent distress. HEENT: Eyes - pupils are equal and responsive to light and accommodation. Extraocular movements are intact. NECK: Supple without lymphadenopathy. CHEST: Lungs are clear to auscultation bilaterally without wheezes or rales. CARDIOVASCULAR: Regular rhythm and rate. S1 and S2 are normal without murmurs , rubs, or gallops. ABDOMEN: Soft, nontender, and nondistended. Positive bowel sounds. No evidence of hepatosplenomegaly. Currently, no rebound or guarding noted. EXTREMITIES: Negative for clubbing, cyanosis, or edema. NEUROLOGIC: Cranial nerves II through XII are grossly intact without focal deficits. Motor strength is 5/5 bilaterally. Deep tendon reflexes are 2+ plantar. Cruzito Willson MD Aug 07, 2018 22:55
[2018-08-08] VITALS (13 sets, daily range): BP systolic 126–159; BP diastolic 56–95
[2018-08-08] MEDS: LORazepam 1mg tab ORAL PRN (02:18)
[2018-08-08] MEDS: NovoLOG Insulin Flexpen SUBQ SCH ×4 (05:15→21:00)
--- NOTE | 2018-08-08 06:30 | NUR ---
NURSE NOTES: Patient noted with low O2sat at 89% RA, coughing. Called RT performed deep suctioning, small to mod secretion noted. Lung sound clear. 4L O2 given via N/C, 96% O2sat noted. Tapered down slowly to RA, current O2sat at 92% RA, in stable condition. Will cont monitoring.
[2018-08-08] MEDS ORDERED: NS Irrig 1000ml ONE (07:00)
[2018-08-08] MEDS ORDERED: D5NS 1000ml IV ONE (07:00)
[2018-08-08] MEDS ORDERED: Sterile Water Irrig 1000ml IRRIG ONE (07:00)
--- NOTE | 2018-08-08 07:21 | NUR ---
HAND-OFF: Report given to Alka MADDEN.
--- NOTE | 2018-08-08 07:32 | NUR ---
NURSE NOTES: received patient lying in bed, asleep, in NAD. Receives IVF through RFA IV access, no sign of infiltration noted. Patient on bilateral soft wrist restraints, skin intact under restraints. Patient is NPO since midnight for procedure. Bed locked at the lowest position possible, bed alarm on, call light within easy reach, siderails upx3 for safety. Will continue to monitor patient and follow up with the plan of care.
[2018-08-08] MEDS ORDERED: Lidocaine 1% MPF 10mg/ml 5ml ONE (08:33)
[2018-08-08] MEDS ORDERED: Midazolam 2mg/2ml Inj ONE (08:37)
[2018-08-08] MEDS ORDERED: cefOXitin 1gm Inj ONE (08:42)
--- NOTE | 2018-08-08 09:03 | Pre-Procedure Note/Attestation ---
Pre-Procedure Note/Attestation Complete Prior to Procedure Planned Procedure: not applicable Procedure Narrative: Hysteroscopy, dilation and curettage, removal and replacement of pessary Indications for Procedure Pre-Operative Diagnosis: Postmenopausal bleeding, anemia Attestation I attest that I discussed the nature of the procedure; its benefits; risks and complications; and alternatives (and the risks and benefits of such alternatives ), prior to the procedure, with the patient (or the patient's legal credit resolution representative). I attest that, if there was a reasonable possibility of needing a blood transfusion, the patient (or the patient's legal credit resolution representative) was given the [facility] standardized written summary, pursuant to the [place] Blood Safety Act ([place] Health and Safety Code # 1645, as amended). I attest that I re-evaluated the patient just prior to the surgery and that there has been no change in the patient's H&P, except as documented below: None Amie Baumann M.D. Aug 08, 2018 09:03
[2018-08-08] MEDS ORDERED: NS Irrig 1000ml IRRIG ONE (09:16)
[2018-08-08] MEDS ORDERED: Silver Nitrate Stick TOPIC ONE (09:48)
--- NOTE | 2018-08-08 09:50 | Anethesia Preoperative Eval ---
Anesthesia Pre-op PMH/ROS General Date of Evaluation: Aug 08, 2018 Time of Evaluation: 09:10 Anesthesiologist: Catrachita ASA Score: ASA 3 Mallampati Score Class I : Soft palate, uvula, fauces, pillars visible Class II: Soft palate, uvula, fauces visible Class III: Soft palate, base of uvula visible Class IV: Only hard plate visible Mallampati Classification: Class III Surgeon: Rachelle Diagnosis: Postmenopausal bleeding Surgical Procedure: D&C Hysteroscopy Anesthesia History: none Family History: no anesthesia problems Allergies: Coded Allergies: NO KNOWN DRUG ALLERGIES (Verified Allergy, Unknown, 06/09/17) Medications: see eMAR Patient NPO?: Yes NPO Date: Aug 08, 2018 NPO Time: 0000 Past Medical History Cardiovascular: Reports: HTN, CAD; Denies: MD, valve dz, arrhythmia, other Pulmonary: Denies: asthma, COPD, STEPAN, other Gastrointestinal/Genitourinary: Reports: GERD, CRI; Denies: ESRD, other Neurologic/Psychiatric: Reports: dementia; Denies: CVA, depression/anxiety, TIA, other Endocrine: Reports: DM; Denies: hypothyroidism, steroids, other HEENT: Denies: cataract (L), cataract (R), glaucoma, [place]EN (L), NEWHALEN (R), other Hematology/Immune: Reports: anemia; Denies: DVT, bleeding disorder, other Musculoskeletal/Integumentary: Reports: DJD; Denies: OA, RA, DDD, edema, other PMH Narrative: as above PSxH Narrative: See H&P Anesthesia Pre-op Phys. Exam Physician Exam Last Vital Signs Date Time Temp Pulse Resp B/P (MAP) Pulse Ox O2 Delivery O2 Flow Rate FiO2 08/08/18 08:06 80 126/77 08/08/18 08:00 98.1 18 96 08/07/18 21:00 Room Air Constitutional: NAD Neurologic: CN 2-12 intact Cardiovascular: RRR, no M/R/G Respiratory: CTA Gastrointestinal: S/NT/ND Airway Exam Mallampati Score: Class III MO: limited Neck: stiff ROM: limited Teeth: missing Dentures: no upper, no lower Anesthesia Pre-op A/P Labs see emily Studies Pre-op Studies: EKG - R, echo - EF 60% Risk Assessment & Plan Assessment: ASA 3 Plan: GA with LMA Status Change Before Surgery: No Pre-Antibiotics Drug: Cefoxitin 1gr Given Within 1 Hr of Incision: Yes Time Given: 09:42 Darren Domínguez MD Aug 08, 2018 09:50
[2018-08-08] MEDS ORDERED: Ferric Subsulfate (Monsel's Soln) 30ml TOPIC ONE (10:00)
[2018-08-08] MEDS ORDERED: fentaNYL 100 mcg/2 mL IV PRN (10:00)
--- NOTE | 2018-08-08 10:14 | Brief Operative Note ---
Immediate Post Operative Note Operative Note Chief Complaint: Postmeopausal bleeding, anemia Pre-op Diagnosis: Postmenopausal bleeding, anemia Procedure: Hysterosopy, dilation and curettage, removal of pessary, removal of foreign body Post-op Diagnosis: Retained foreign object Post-op Diagnosis: same as pre-op plus - Retained foreign body Surgeon: Amie Baumann MD Anesthesiologist: Dr. Olvera Anesthesia: general Specimen: yes - Endometrial curettings, Foreign body Complications: none Condition: stable Fluids: 200cc Estimated Blood Loss: minimal Implant(s) used?: No Amie Baumann M.D. Aug 08, 2018 10:14
--- NOTE | 2018-08-08 10:15 | Operative Note - PDOC ---
Operative Note Operative Note Date of Operation/Procedure: Aug 08, 2018 Chief Complaint: Postmeopausal bleeding, anemia Pre-op Diagnosis: Postmenopausal bleeding, anemia Procedure: Hysterosopy, dilation and curettage, removal of pessary, removal of foreign body Post-op Diagnosis: Retained foreign body, ulcerated and friable cervix Post-op Diagnosis: same as pre-op plus - Retained foreign body Surgeon: Amie Baumann MD Anesthesiologist: Dr. Olvera Anesthesia: general Specimen: yes - Endometrial curettings, Foreign body Complications: none Condition: stable Fluids: 200cc Estimated Blood Loss: minimal Implant(s) used?: No Description of Procedure The R/B/A of the procedure were discussed with the patient's family and informed consent was obtained. The patient was taken to the operating room with IV in place. The patient was placed in dorsal supine position with SCD stockings in place. General anesthesia was administered without difficulty. The patient was then placed in dorsal lithotomy position. The patient was prepped and draped in the usual sterile fashion. The bladder was drained with in/out catheterization. A time out was called to verify patient and procedure. Pelvic exam was performed and the patient's ring pessary with support was removed. Purulent bloody discharge was noted. The pessary was cleaned in a diluted betadine solution. A bivalve speculum was inserted and a dark red mass was noted in the vagina. The speculum was removed and manual exam was performed which revealed a foreign object. The cap of a deodorant was removed from the patient's vagina. Bloody discharge was noted. The speculum was reinserted and the cervix was notably friable. The anterior lip of the cervix was grasped with a single-toothed tenaculum. The cervical os was identified and dilated to accommodate the hysteroscope. Hysteroscope was introduced and the uterine cavity was visualized. No gross abnormalities were noted. Bilateral cornua were visualized. The hysteroscope was withdrawn and fractional curettage was performed. Curettings were sent to pathology. The tenaculum was removed and the cervix was assessed for hemostasis. Silver nitrate and pressure were used to obtain excellent hemostasis. All instruments were removed from the vagina. All sponge and instrument counts were correct x 3. The patient was awakened without complication and taken to the recovery area in stable condition. The patient's family was updated on her condition. The patient will be transferred back to her room for discharge planning. Amie Baumann M.D. Aug 08, 2018 10:15
--- NOTE | 2018-08-08 10:40 | Immediate Post-Op Evaluation ---
Immediate Post-Op Evalulation Immediate Post-Op Evalulation Procedure: D&C Hysteroscopy, Removal of pessary and vaginal foreing body Date of Evaluation: Aug 08, 2018 Time of Evaluation: 10:39 IV Fluids: 300 Blood Products: none Estimated Blood Loss: min Urinary Output: 120 Blood Pressure Systolic: 156 Blood Pressure Diastolic: 62 Pulse Rate: 68 Respiratory Rate: 20 O2 Sat by Pulse Oximetry: 99 Temperature (Fahrenheit): 97.6 Pain Score (1-10): 1 Nausea: No Vomiting: No Complications none Patient Status: reacts, patent, none Hydration Status: adequate Darren Domínguez MD Aug 08, 2018 10:40
--- NOTE | 2018-08-08 13:33 | Cardiac Electrophysiology PN ---
Assessment/Plan Assessment/Plan 1. Hypertension. On Coreg 3.125 mg b.i.d. Echo EF 65% 2. Hyperlipidemia. 3. Vaginal bleeding. NSR. NL EF. No prior IL or CHF. OK to proceed with surgery at moderate risk Had [employer] WORKER surgery today 4. Psychosis, on Zyprexa. 5. Alcohol dependence. 6. Lice infestation. DW Dr Mckeon Subjective Subjective Comfortable in NAD. No CP or SOB off tele.Had [employer] WORKER surgery today Objective Last 24 Hour Vital Signs Date Time Temp Pulse Resp B/P (MAP) Pulse Ox O2 Delivery O2 Flow Rate FiO2 08/08/18 11:16 97.4 65 19 142/59 100 Nasal Cannula 3 08/08/18 11:10 66 25 143/61 100 Nasal Cannula 3 08/08/18 11:00 66 22 142/56 100 Nasal Cannula 3 08/08/18 10:55 65 23 142/56 100 Simple Mask 6 08/08/18 10:40 65 16 159/66 100 Simple Mask 6 08/08/18 10:40 68 20 99 08/08/18 10:35 64 19 156/65 100 Simple Mask 6 08/08/18 10:30 66 18 133/66 100 Simple Mask 6 08/08/18 10:24 97.2 65 14 139/62 100 Simple Mask 6 08/08/18 09:00 Room Air 08/08/18 08:06 80 126/77 08/08/18 08:00 98.1 80 18 126/77 (93) 96 08/08/18 04:00 98.1 80 18 151/92 (111) 100 08/08/18 00:00 97.7 77 18 141/80 (100) 93 08/07/18 21:00 Room Air 08/07/18 20:30 90 145/97 (113) 08/07/18 20:12 90 145/107 08/07/18 20:00 97.9 93 20 182/106 (131) 95 08/07/18 19:45 182/106 08/07/18 16:00 97.0 84 20 119/77 (91) 97 Intake and Output 08/07/18 08/08/18 19:00 07:00 Intake Total 990.0 ml 1700 ml Balance 990.0 ml 1700 ml Intake Oral 480 ml 200 ml IV Total 510.0 ml 1500 ml # Voids 4 3 Objective HEAD AND NECK: No JVD. LUNGS: Clear. CARDIOVASCULAR: Regular S1 and S2 with no gallop or murmur. ABDOMEN: Soft. EXTREMITIES: No pitting edema. SKIN: The patient has history of scabies. Abelardo Shaw MD Aug 08, 2018 13:33
[2018-08-08] MEDS: Fluocinonide 15gm Cream TOPIC SCH (15:09)
--- NOTE | 2018-08-08 17:01 | NUR ---
MASONRY INSTALLERFAGOTER SI:ANEMIA . VAGINAL BLEEDING . UTERINE TUMOR . R/O ACUTE UTERINE CARCINOMA VS: BP 156/65, P 65, T 97.2, RR 14, SpO2 100 S.MASK IS: ZYPREXA 2.5mg ATIVAN 2mg PIPERACILLIN 110ml IVPB GABAPENTIN 300mg COREG 3.125mg FAMOTIDINE 20mg LIDEX 1 APPLICATION MED/SURG STATUS
--- NOTE | 2018-08-08 17:39 | Internal Med Progress Note ---
Subjective Physician Name Ari Mckeon Attending Physician Ari Mckeon MD Current Medications Medications (Trade) Dose Ordered Sig/Kannan Route PRN Reason Start Time Stop Time Status Last Admin Dose Admin Acetaminophen (Tylenol) 650 mg Q6H PRN ORAL Mild Pain/Temp > 100.5 07/29/18 07:00 08/28/18 06:59 08/06/18 09:09 Carvedilol (Coreg) 3.125 mg EVERY 12 HOURS ORAL 07/29/18 09:00 08/28/18 08:59 08/08/18 08:06 Clonidine HCl (Catapres Tab) 0.1 mg Q2HR PRN ORAL For High Blood Pressure >170 08/05/18 10:45 09/04/18 10:44 08/07/18 19:45 Dextrose (Dextrose 50%) 25 ml Q30M PRN IV Hypoglycemia 07/29/18 07:00 08/28/18 06:59 Dextrose (Dextrose 50%) 50 ml Q30M PRN IV Hypoglycemia 07/29/18 07:00 08/28/18 06:59 Enalaprilat (Vasotec) 1.25 mg Q3HR PRN IV For High Blood Pressure >170 08/05/18 10:45 09/04/18 10:44 Famotidine (Pepcid) 20 mg DAILY ORAL 07/29/18 09:00 08/28/18 08:59 08/07/18 09:44 Fluocinonide (Lidex) 1 applic DAILY TOPIC 07/29/18 10:00 08/28/18 09:59 08/08/18 15:09 Gabapentin (Neurontin) 300 mg BEDTIME ORAL 07/29/18 21:00 08/28/18 20:59 08/07/18 20:13 Insulin Aspart (NovoLOG) BEFORE MEALS AND HS SUBQ 07/29/18 11:30 08/28/18 11:29 08/07/18 19:21 Olanzapine (ZyPREXA) 2.5 mg BID ORAL 08/08/18 18:00 09/07/18 17:59 Ondansetron HCl (Zofran) 4 mg Q4H PRN IVP Nausea & Vomiting 07/29/18 07:00 08/28/18 06:59 Sodium Chloride 1,000 ml @ 150 mls/hr Q6H40M IV 07/29/18 13:00 4/7/19 12:59 08/08/18 15:10 Allergies: Coded Allergies: NO KNOWN DRUG ALLERGIES (Verified Allergy, Unknown, 06/09/17) Subjective awake, alert, responsive, talking, daughter at the bedside. S/P Hysterosopy, dilation and curettage, removal of pessary, removal of foreign body Post-op Diagnosis: Retained foreign body, ulcerated and friable cervix Objective Last Vital Signs Date Time Temp Pulse Resp B/P (MAP) Pulse Ox O2 Delivery O2 Flow Rate FiO2 08/08/18 15:51 97.9 73 18 150/70 (96) 98 08/08/18 11:16 Nasal Cannula 3 Intake and Output 08/07/18 08/08/18 19:00 07:00 Intake Total 990.0 ml 1700 ml Balance 990.0 ml 1700 ml Intake Oral 480 ml 200 ml IV Total 510.0 ml 1500 ml # Voids 4 3 Objective General: No acute distress, awake and less agitated HEENT: NCAT, sclera anicteric, PERRL, EOMI. Neck: Supple, no significant jugular venous distention, Lungs: Fair inspiratory effort, decrease air at bases, no Wheeze or Rales. Heart: Regular rate and rhythm, normal S1/S2, no murmur. Abdomen: soft, nontender, nondistended. Normoactive bowel sounds. Extremities: No Cyanosis , clubbing or edema. Neuro: A&O x 3, Able to move all extremities Skin: warm, no rashes or lesions Psych: Normal mood and affect Assessment/Plan Assessment/Plan ASSESSMENT: This is a 73-year-old female. # Postmenopausal vaginal bleeding S/P Hysteroscopy, dilation and curettage, removal of pessary, removal of foreign body (08/08/2018)--> Bleeding most likely due to retained foreign body, ulcerated and friable cervix. # Pelvic pain. # Diabetes type 2. # Hypercholesterolemia. # Severe anemia due to acute blood loss # Agitation TREATMENT: 1. Postmenopausal vaginal bleeding/endometrial hyperplasia. A SUPERINTENDENT REFUSE DISPOSAL consultation has been obtained with Dr. Torrez. 2. Diabetes type 2. Regular insulin sliding scale has been instituted. 3. Hypercholesterolemia. Continue Lipitor. 4. Hypertension. Continue Coreg. 5. S/P Transfusion 2 unit PRBC [place] planning home for Ari Carrasquillo MD Aug 08, 2018 17:39
--- NOTE | 2018-08-08 18:01 | General Progress Note ---
Assessment/Plan Assessment/Plan ASSESSMENT: # Endometrial thickening, concerning for infection or neoplasm given findings on recent CT scan, with Postmenopausal vaginal bleeding/endometrial hyperplasia, A HEEL GUMMER consultation has been obtained --> D&C Hysteroscopy, Removal of pessary and vaginal foreing body on 08/[address] jiménez --> imaging has been reviewed --> final report of above to follow # Anemia of iron deficiency --> Anemia workup has been reviewed, Ferritin 13 --> No evidence of hemolysis is noted, peripheral smear has been reviewed. --> Hgb goal >7. Transfuse prn. --> Medications have been reviewed --> HGB trend: 8--> 7->6.8-->8-->10-->11 ==> started on iv iron 100mg iv daily x 5 days # Leukocytosis/Elevated white blood cell count, unspecified likely related to underlying stress reaction, smoking, or underlying infection --> have reviewed peripheral smear and bandemia/neutrophilia noted --> continue antibiotics if they have been started by ID team --> monitor for resolution # Pelvic pain. # Diabetes type 2, regular insulin sliding scale has been instituted. # Hypercholesterolemia, Continue Lipitor as above The timing of this note does not necessarily reflect the time of the patient was seen. Greatly appreciate consultation! Subjective Constitutional: Denies: no symptoms, chills, diaphoresis, fever, malaise, weakness, other Respiratory: Denies: no symptoms, cough, orthopnea, shortness of breath, SOB with excertion, SOB at rest, sputum, stridor, wheezing, other Genitourinary: Denies: no symptoms, burning, discharge, frequency, flank pain, hematuria, incontinence, pain, urgency, other Neurologic/Psychiatric: Denies: no symptoms, anxiety, depressed, emotional problems, headache, numbness, paresthesia, pre-existing deficit, seizure, tingling, tremors, weakness, other Endocrine: Denies: no symptoms, excessive sweating, flushing, intolerance to cold, intolerance to heat, increased hunger, increased thirst, increased urine, unexplained weight gain, unexplained weight loss, other Hematologic/Lymphatic: Denies: no symptoms, anemia, easy bleeding, easy bruising, other Allergies: Coded Allergies: NO KNOWN DRUG ALLERGIES (Verified Allergy, Unknown, 06/09/17) Subjective 07/31: Seen by bedside, hgb 6.8, will receive prbc, Awaiting HEEL GUMMER consult. 08/01: Pt is awake, comfortable, no events reported, hgb 8 08/02: awake, comfortable, no acute distress reported. 08/03: seen resting in bed, echo and CXR reviewed, no events, Await cardiology clearance for endometrial biopsy under anesthesia 08/04: Pt is resting in bed, cardiology consult done today, pending biopsy, no events 08/05: comfortable, no events 08/07: seen by bedside,confused no acute distress 08/08: surgery today by Dr. Jiménez, D&C Hysteroscopy, Removal of pessary and vaginal foreing body Objective Last 24 Hour Vital Signs Date Time Temp Pulse Resp B/P (MAP) Pulse Ox O2 Delivery O2 Flow Rate FiO2 08/08/18 15:51 97.9 73 18 150/70 (96) 98 08/08/18 11:16 97.4 65 19 142/59 100 Nasal Cannula 3 08/08/18 11:10 66 25 143/61 100 Nasal Cannula 3 08/08/18 11:00 66 22 142/56 100 Nasal Cannula 3 08/08/18 10:55 65 23 142/56 100 Simple Mask 6 08/08/18 10:40 65 16 159/66 100 Simple Mask 6 08/08/18 10:40 68 20 99 08/08/18 10:35 64 19 156/65 100 Simple Mask 6 08/08/18 10:30 66 18 133/66 100 Simple Mask 6 08/08/18 10:24 97.2 65 14 139/62 100 Simple Mask 6 08/08/18 09:00 Room Air 08/08/18 08:06 80 126/77 08/08/18 08:00 98.1 80 18 126/77 (93) 96 08/08/18 04:00 98.1 80 18 151/92 (111) 100 08/08/18 00:00 97.7 77 18 141/80 (100) 93 08/07/18 21:00 Room Air 08/07/18 20:30 90 145/97 (113) 08/07/18 20:12 90 145/107 08/07/18 20:00 97.9 93 20 182/106 (131) 95 08/07/18 19:45 182/106 Intake and Output 08/07/18 08/08/18 19:00 07:00 Intake Total 990.0 ml 1700 ml Balance 990.0 ml 1700 ml Intake Oral 480 ml 200 ml IV Total 510.0 ml 1500 ml # Voids 4 3 Height (Feet): 5 Height (Inches): 0.00 Weight (Pounds): 148 Objective PHYSICAL EXAMINATION: VITAL SIGNS: Reviewed GENERAL: The patient is a well-developed and well-nourished female HEENT: Eyes - pupils are equal and responsive to light and accommodation NECK: Supple without lymphadenopathy. CHEST: Lungs are clear to auscultation bilaterally without wheezes or rales. CARDIOVASCULAR: Regular rhythm and rate. S1 and S2 are normal without murmurs , rubs, or gallops. ABDOMEN: Soft, nontender, and nondistended. Positive bowel sounds. No evidence of hepatosplenomegaly EXTREMITIES: Negative for clubbing, cyanosis, or edema. NEUROLOGIC: Cranial nerves II through XII are grossly intact without focal deficits.reflexes are 2+ plantar. Cruzito Willson MD Aug 08, 2018 18:01
[2018-08-08] MEDS: OLANZapine 2.5mg tab ORAL SCH (18:03)
--- NOTE | 2018-08-08 19:30 | NUR ---
HAND-OFF: Report given to MARYANNE Gomez.
--- NOTE | 2018-08-08 22:03 | General Progress Note ---
Assessment/Plan Problem List: (1) Acute metabolic encephalopathy ICD Codes: G93.41 - Metabolic encephalopathy SNOMED: 39282061, 181592884 (2) Alcohol dependence ICD Codes: F10.20 - Alcohol dependence, uncomplicated SNOMED: 25643753, 485608506 Status: stable Assessment/Plan Zyprexa 5mg po tid Ativan prn cont restraints Subjective Neurologic/Psychiatric: Reports: anxiety, depressed, emotional problems Allergies: Coded Allergies: NO KNOWN DRUG ALLERGIES (Verified Allergy, Unknown, 06/09/17) Subjective the pt cont to have episodes of agitation confused spoke with grand daughter Objective Last 24 Hour Vital Signs Date Time Temp Pulse Resp B/P (MAP) Pulse Ox O2 Delivery O2 Flow Rate FiO2 08/08/18 21:22 84 130/95 08/08/18 20:00 98.4 84 19 130/95 (107) 94 08/08/18 15:51 97.9 73 18 150/70 (96) 98 08/08/18 11:16 97.4 65 19 142/59 100 Nasal Cannula 3 08/08/18 11:10 66 25 143/61 100 Nasal Cannula 3 08/08/18 11:00 66 22 142/56 100 Nasal Cannula 3 08/08/18 10:55 65 23 142/56 100 Simple Mask 6 08/08/18 10:40 65 16 159/66 100 Simple Mask 6 08/08/18 10:40 68 20 99 08/08/18 10:35 64 19 156/65 100 Simple Mask 6 08/08/18 10:30 66 18 133/66 100 Simple Mask 6 08/08/18 10:24 97.2 65 14 139/62 100 Simple Mask 6 08/08/18 09:00 Room Air 08/08/18 08:06 80 126/77 08/08/18 08:00 98.1 80 18 126/77 (93) 96 08/08/18 04:00 98.1 80 18 151/92 (111) 100 08/08/18 00:00 97.7 77 18 141/80 (100) 93 Intake and Output 08/07/18 08/08/18 19:00 07:00 Intake Total 990.0 ml 1800 ml Balance 990.0 ml 1800 ml Intake Oral 480 ml 200 ml IV Total 510.0 ml 1600 ml # Voids 4 3 Height (Feet): 5 Height (Inches): 0.00 Weight (Pounds): 148 General Appearance: WD/WN, no apparent distress, alert, confused Tip Frazier MD Aug 08, 2018 22:03
--- NOTE | 2018-08-08 22:16 | NUR ---
NURSE NOTES: Patient in bed, awake, confused. Unable to make needs known. Kept clean and comfortable. Provided safe environment. Bed in low and locked position. Iv site is noted, iv fluid is infusing as ordered. Patient is on bilateral wrist restraints, patient confused and history of pulling devices. Skin is warm and dry to touch. Abdomen is soft and non distended. NO s/s of pain or discomfort noted. Respiration is even and unlabored. Call light is at bedside. Will continue plan of care.
[2018-08-09] VITALS: BP 134/90
[2018-08-09 04:00] VITALS: BP 144/88
[2018-08-09] MEDS: NovoLOG Insulin Flexpen SUBQ SCH ×3 (05:35→16:30)
[2018-08-09] MEDS ORDERED: Sterile Water Irrig 1000ml IRRIG ONE (07:08)
[2018-08-09] MEDS ORDERED: D5NS 1000ml IV ONE (07:08)
[2018-08-09] MEDS ORDERED: NS Irrig 1000ml ONE (07:08)
--- NOTE | 2018-08-09 07:15 | NUR ---
HAND-OFF: Report given to MARYANNE Bray.
--- NOTE | 2018-08-09 07:47 | NUR ---
NURSE NOTES: patient is alert to name,respirations unlabored,IV fluids infusing as ordered,breakfast at bed side will assist patient,call light within reach,bed alarm is on.
[2018-08-09 08:08] VITALS: BP 134/97
[2018-08-09] MEDS: OLANZapine 2.5mg tab ORAL SCH (08:44)
[2018-08-09] MEDS: Fluocinonide 15gm Cream TOPIC SCH (08:52)
--- NOTE | 2018-08-09 09:00 | NUR ---
NURSE NOTES: Patient incontinent of urine and stool,skin care given redness/rash to buttocks noted,cream applied,turned and position.
--- NOTE | 2018-08-09 10:44 | NUR ---
ENTRY LEVEL ADMINISTRATIVE ASSISTANTMANAGER GENERAL SI:ANEMIA . VAGINAL BLEEDING . UTERINE TUMOR . R/O ACUTE UTERINE CARCINOMA VS: BP 156/75, P 82, T 97.7, RR 24, SpO2 94 Room Air IS: ZYPREXA 2.5mg NOVOLOG SUBQ NS x1L IV GABAPENTIN 300mg COREG 3.125mg FAMOTIDINE 20mg LIDEX 1 APPLICATION MED/SURG STATUS
[2018-08-09] MEDS ORDERED: OLANZAPINE2.5 MG ORAL (11:57)
--- NOTE | 2018-08-09 12:04 | 48 Hour Post Anesthesia Eval ---
Post Anesthesia Evaluation Procedure: D&C Hysteroscopy, Removal of pessary and vaginal foreing body Date of Evaluation: Aug 09, 2018 Time of Evaluation: 12:02 Blood Pressure Systolic: 156 0: 75 Pulse Rate: 79 Respiratory Rate: 24 Temperature (Fahrenheit): 97.7 O2 Sat by Pulse Oximetry: 96 Airway: patent Nausea: No Vomiting: No Pain Intensity: 2 Hydration Status: adequate Cardiopulmonary Status: Stable Mental Status/LOC: patient returned to baseline Follow-up Care/Observations: 0 Post-Anesthesia Complications: 0 Follow-up care needed: N/A Nathanael Carbajal MD Aug 09, 2018 12:03
[2018-08-09 12:11] VITALS: BP 152/89
--- NOTE | 2018-08-09 15:03 | NUR ---
*-* INSURANCE *-* ALL CLINICALS AND REVIEWS [facility]ED [facility]: [facility] FX: [phone] FX: [phone]
--- NOTE | 2018-08-09 15:40 | NUR ---
NURSE NOTES: Patient family will pick patient up at 1600 today for discharge to home.
--- NOTE | 2018-08-09 15:54 | Cardiac Electrophysiology PN ---
Assessment/Plan Assessment/Plan 1. Hypertension. On Coreg 3.125 mg b.i.d. Echo EF 65% 2. Hyperlipidemia. 3. Vaginal bleeding. NSR. NL EF. No prior NC Had foreign body yesterday 4. Psychosis, on Zyprexa. 5. Alcohol dependence. 6. Lice infestation. DARRYL MADDEN DC today Subjective Subjective Comfortable in NAD. Confused. Objective Last 24 Hour Vital Signs Date Time Temp Pulse Resp B/P (MAP) Pulse Ox O2 Delivery O2 Flow Rate FiO2 08/09/18 12:11 97.7 78 18 152/89 (110) 08/09/18 12:03 79 24 96 08/09/18 08:43 79 156/75 08/09/18 08:08 97.7 82 24 134/97 (109) 96 08/09/18 04:00 98.4 82 19 144/88 (106) 95 08/09/18 00:00 98.2 80 18 134/90 (105) 94 08/08/18 21:22 84 130/95 08/08/18 20:00 98.4 84 19 130/95 (107) 94 Intake and Output 08/08/18 08/09/18 19:00 07:00 Intake Total 1090 ml 900 ml Output Total 50 ml Balance 1040 ml 900 ml Intake Oral 240 ml IV Total 850 ml 900 ml Output Estimated Blood Loss 50 ml # Voids 4 Objective HEAD AND NECK: No JVD. LUNGS: Clear. CARDIOVASCULAR: Regular S1 and S2 with no gallop or murmur. ABDOMEN: Soft. EXTREMITIES: No pitting edema. SKIN: The patient has history of scabies. Abelardo Shaw MD Aug 09, 2018 15:54
--- NOTE | 2018-08-09 15:56 | General Progress Note ---
Assessment/Plan Assessment/Plan ASSESSMENT: # Endometrial thickening, concerning for infection or neoplasm given findings on recent CT scan, with Postmenopausal vaginal bleeding/endometrial hyperplasia, A FAMILY SOCIOLOGIST consultation has been obtained --> D&C Hysteroscopy, Removal of pessary and vaginal foreing body on 08/[address] jiménez --> imaging has been reviewed --> final report of above to follow # Anemia of iron deficiency --> Anemia workup has been reviewed, Ferritin 13 --> No evidence of hemolysis is noted, peripheral smear has been reviewed. --> Hgb goal >7. Transfuse prn. --> Medications have been reviewed --> HGB trend: 8--> 7->6.8-->8-->10-->11 ==> started on iv iron 100mg iv daily x 5 days # Leukocytosis/Elevated white blood cell count, unspecified likely related to underlying stress reaction, smoking, or underlying infection --> have reviewed peripheral smear and bandemia/neutrophilia noted --> continue antibiotics if they have been started by ID team --> monitor for resolution # Pelvic pain. # Diabetes type 2, regular insulin sliding scale has been instituted. # Hypercholesterolemia, Continue Lipitor as above The timing of this note does not necessarily reflect the time of the patient was seen. Greatly appreciate consultation! Subjective Allergies: Coded Allergies: NO KNOWN DRUG ALLERGIES (Verified Allergy, Unknown, 06/09/17) Subjective 07/31: Seen by bedside, hgb 6.8, will receive prbc, Awaiting FAMILY SOCIOLOGIST consult. 08/01: Pt is awake, comfortable, no events reported, hgb 8 08/02: awake, comfortable, no acute distress reported. 08/03: seen resting in bed, echo and CXR reviewed, no events, Await cardiology clearance for endometrial biopsy under anesthesia 08/04: Pt is resting in bed, cardiology consult done today, pending biopsy, no events 08/05: comfortable, no events 08/07: seen by bedside,confused no acute distress 08/08: surgery today by Dr. Jiménez, D&C Hysteroscopy, Removal of pessary and vaginal foreing body 08/09: Pt is seen by bedside, confused, no events Objective Last 24 Hour Vital Signs Date Time Temp Pulse Resp B/P (MAP) Pulse Ox O2 Delivery O2 Flow Rate FiO2 08/09/18 12:11 97.7 78 18 152/89 (110) 08/09/18 12:03 79 24 96 08/09/18 08:43 79 156/75 08/09/18 08:08 97.7 82 24 134/97 (109) 96 08/09/18 04:00 98.4 82 19 144/88 (106) 95 08/09/18 00:00 98.2 80 18 134/90 (105) 94 08/08/18 21:22 84 130/95 08/08/18 20:00 98.4 84 19 130/95 (107) 94 Intake and Output 08/08/18 08/09/18 19:00 07:00 Intake Total 1090 ml 900 ml Output Total 50 ml Balance 1040 ml 900 ml Intake Oral 240 ml IV Total 850 ml 900 ml Output Estimated Blood Loss 50 ml # Voids 4 Height (Feet): 5 Height (Inches): 0.00 Weight (Pounds): 148 Objective PHYSICAL EXAMINATION: VITAL SIGNS: Reviewed GENERAL: The patient is a well-developed and well-nourished female HEENT: Eyes - pupils are equal and responsive to light and accommodation NECK: Supple without lymphadenopathy. CHEST: Lungs are clear to auscultation bilaterally without wheezes or rales. CARDIOVASCULAR: Regular rhythm and rate. S1 and S2 are normal without murmurs , rubs, or gallops. ABDOMEN: Soft, nontender, and nondistended. Positive bowel sounds. No evidence of hepatosplenomegaly EXTREMITIES: Negative for clubbing, cyanosis, or edema. NEUROLOGIC: Cranial nerves II through XII are grossly intact without focal deficits.reflexes are 2+ plantar. Cruzito Willson MD Aug 09, 2018 15:56
[2018-08-09 16:00] VITALS: BP 153/96
--- NOTE | 2018-08-09 16:02 | General Progress Note ---
Assessment/Plan Problem List: (1) Acute metabolic encephalopathy ICD Codes: G93.41 - Metabolic encephalopathy SNOMED: 97270290, 512731878 (2) Alcohol dependence ICD Codes: F10.20 - Alcohol dependence, uncomplicated SNOMED: 79242295, 050491692 Assessment/Plan Zyprexa 5mg po tid Ativan prn cont restraints script in the chart Subjective Neurologic/Psychiatric: Reports: anxiety, depressed, emotional problems Allergies: Coded Allergies: NO KNOWN DRUG ALLERGIES (Verified Allergy, Unknown, 06/09/17) Subjective the pt cont to have episodes of agitation confused spoke with grand daughter and would like to cont zyprexa at home the pt was admitted with lice and in poor condition Objective Last 24 Hour Vital Signs Date Time Temp Pulse Resp B/P (MAP) Pulse Ox O2 Delivery O2 Flow Rate FiO2 08/09/18 12:11 97.7 78 18 152/89 (110) 08/09/18 12:03 79 24 96 08/09/18 08:43 79 156/75 08/09/18 08:08 97.7 82 24 134/97 (109) 96 08/09/18 04:00 98.4 82 19 144/88 (106) 95 08/09/18 00:00 98.2 80 18 134/90 (105) 94 08/08/18 21:22 84 130/95 08/08/18 20:00 98.4 84 19 130/95 (107) 94 Intake and Output 08/08/18 08/09/18 19:00 07:00 Intake Total 1090 ml 900 ml Output Total 50 ml Balance 1040 ml 900 ml Intake Oral 240 ml IV Total 850 ml 900 ml Output Estimated Blood Loss 50 ml # Voids 4 Height (Feet): 5 Height (Inches): 0.00 Weight (Pounds): 148 General Appearance: alert, confused, agitated Tip Frazier MD Aug 09, 2018 16:02
--- NOTE | 2018-08-09 16:23 | NUR ---
CHARGE NURSE NOTES: SPOKE WITH [employer]AN[employer]. PER TIFF, WILL REPORT/CONTACT APS ABOUT LICE.
--- NOTE | 2018-08-09 16:44 | NUR ---
P.T NOTE: P.T EVALUATION COMPLETED. PATIENT IS ALREADY AT BASELINE FUNCTION THEREFORE NOT A CANDIDATE FOR SKILLED P.T SERVICES. THANK YOU FOR THIS REFERRAL. Addendum: 08/09/18 at 1647 by JACQUI PFEIFFER PT NOTE CORRECTION: PLEASE DISREGARD THE ABOVE P.T NOTE: WRONG ENTRY !
--- NOTE | 2018-08-09 16:51 | NUR ---
Social Service Note APS report filed [phone] file #[phone].
--- NOTE | 2018-08-09 17:38 | NUR ---
NURSE NOTES: Discharge with discharge instructions given to lashae,MS Hart,Skin care given patient cream applied to buttocks,no open wounds noted on buttocks.IV removed and ID hospital band removed,family has personal belongings.Patient accompany down to private vehicle. Addendum: 08/09/18 at 2033 by RUTHANN BLACKWELL RN RN patient discharge at 1829
--- NOTE | 2018-08-09 18:41 | NUR ---
NURSE NOTES: DR notified of patient rash/redness to buttocks,skin is blanchable ,no new orders given per MD.
--- NOTE | 2018-08-09 19:00 | NUR ---
NURSE NOTES: Patient incontinent of urine,no blood in urine or vaginal bleeding was noted.
--- NOTE | 2018-08-09 23:30 | Internal Med Progress Note ---
Subjective Physician Name Ari Mckeon Attending Physician Ari Mckeon MD Allergies: Coded Allergies: NO KNOWN DRUG ALLERGIES (Verified Allergy, Unknown, 06/09/17) Subjective awake, alert, responsive, talking. Objective Last Vital Signs Date Time Temp Pulse Resp B/P (MAP) Pulse Ox O2 Delivery O2 Flow Rate FiO2 08/09/18 16:00 98.2 82 22 153/96 (115) 95 08/08/18 11:16 Nasal Cannula 3 Intake and Output 08/08/18 08/09/18 19:00 07:00 Intake Total 1090 ml 900 ml Output Total 50 ml Balance 1040 ml 900 ml Intake Oral 240 ml IV Total 850 ml 900 ml Output Estimated Blood Loss 50 ml # Voids 4 Objective General: No acute distress, awake and less agitated HEENT: NCAT, sclera anicteric, PERRL, EOMI. Neck: Supple, no significant jugular venous distention, Lungs: Fair inspiratory effort, decrease air at bases, no Wheeze or Rales. Heart: Regular rate and rhythm, normal S1/S2, no murmur. Abdomen: soft, nontender, nondistended. Normoactive bowel sounds. Extremities: No Cyanosis , clubbing or edema. Neuro: A&O x 3, Able to move all extremities Skin: warm, no rashes or lesions Psych: Normal mood and affect Assessment/Plan Assessment/Plan ASSESSMENT: This is a 73-year-old female. # Postmenopausal vaginal bleeding S/P Hysteroscopy, dilation and curettage, removal of pessary, removal of foreign body (08/08/2018)--> Bleeding most likely due to retained foreign body, ulcerated and friable cervix. # Pelvic pain. # Diabetes type 2. # Hypercholesterolemia. # Severe anemia due to acute blood loss # Agitation TREATMENT: 1. Postmenopausal vaginal bleeding/endometrial hyperplasia. A MACHINE SETTER SHEET METAL consultation has been obtained with Dr. Torrez. 2. Diabetes type 2. Regular insulin sliding scale has been instituted. 3. Hypercholesterolemia. Continue Lipitor. 4. Hypertension. Continue Coreg. 5. S/P Transfusion 2 unit PRBC DC planning home today. Ari Mckeon MD Aug 09, 2018 23:30
--- NOTE | 2018-08-11 11:28 | Discharge Summary ---
Discharge Summary Discharge Summary _ DATE OF ADMISSION: 07/29/2018 DATE OF DISCHARGE: 08/09/2018 DISCHARGED BY: Dr. Mckeon REASON FOR ADMISSION: 73 years old female with past medical history of hypertension, diabetes mellitus , presented with a chief complaint of vaginal bleeding for 1 day. Bleeding was described as heavy . Patient was complaining of cramping abdominal pain. Pain reported 7 out of 10 on a scale 1-10 , without radiation. No associated nausea or vomiting. According to the family member for the last few months , patient was getting paler. No trauma. Questionable weight loss. Patient had a history of uterine prolapse and had pessary in [facility] for 4 years. Upon evaluation vital signs revealed low blood pressure 89/50. Laboratory workup revealed leukocytosis WBC 15, hemoglobin 8.6, hematocrit 25.3. Stable coagulation profile. Sodium 133, potassium 5.3. BUN 34, creatinine 1.6. Glucose 320. AST 9, ALT 11. Albumin 3.0. Urinalysis revealed +3 protein, hematuria ,+3 leukocyte esterase , few bacteria. CT of the abdomen and pelvis demonstrated interim correction of previously demonstrated pelvic floor prolapse. Pessary in place. Findings were with concern for endometrial pathology such as endometritis and / or endometrial neoplasm. Marked atrophy of the left kidney. Mild hydronephrosis. No acute abdominal pathology. Diverticulosis without evidence of diverticulitis. Cholelithiasis. Patient subsequently was admitted for further management. CONSULTANTS: electronic warfare technical Dr. Suarez pulmonary Dr. Quezada per diem rn/oncologist Dr. Willson psychiatrist FILM READER Dr. aBumann plastic surgeon Dr. Lloyd HOSPITAL COURSE: Patient admitted to medical surgical floor. Patient started on IV fluids. INTERACTIVE MEDIA DIRECTOR and oncology evaluation requested. Supportive care provided. Pain management was addressed. Patient initially started on empiric antibiotics for UTI, , but urine culture revealed mixed urogenital contaminants. Antibiotics stopped. GI prophylaxis provided. Transvaginal abdominal ultrasound revealed endometrial thickening, concerning for infection versus neoplasm, given recent CT scan findings. FILM READER seen and evaluated patient, and closely reviewed all images. FILM READER specialist recommended hysteroscopy, dilatation and curettage under anesthesia, given her age and presence of pessary for the last 4 years. Patient will require evaluation of vaginal vault under anesthesia, given possible erosion. Cardiology seen and evaluated patient. Blood pressure was managed with beta-radha and remained stable. Statin was continued. Echocardiogram revealed preserved ejection fraction 65% with mild left ventricular hypertrophy. No evidence of wall motion abnormality. No pericardial effusion. Right ventricular systolic pressure of 51, consistent with a moderate pulmonary hypertension. Recyclable Products Sorter cleared patient for surgery. Patient subsequently undergone on 08/08 hysteroscopy, dilatation and curettage , removal of pessary, removal of foreign body. During the surgery noted retained foreign body, which likely caused acute bleeding. Foreign body was removed and revealed curved plastic cap with smooth surface. Noted ulcerated and friable cervix. Pathology of endometrium revealed benign inactive endometrium with chronic and focal acute inflammation. Solar Sales Assessor/oncologist followed. Anemia workup revealed evidence of anemia of iron deficiency. Hemoglobin and hematocrit were closely monitored with goal to keep hemoglobin above 7. Patient was transfused with 2 units of packed red blood cells. Patient was provided with IV Venofer. Prior to discharge hemoglobin 9.6, hematocrit 28.5. Stool for occult blood was negative. CEA was within normal limits. Renal parameters and electrolytes were closely monitored. Nephrotoxins were avoided. Electrolytes corrected as needed. With IV fluids creatinine from 1.6 down to 1.1 , BUN from 24 down to 9. Patient was recommended to avoid nephrotoxic medications , specifically nonsteroidal anti-inflammatory drugs. Oral hydration encouraged. Blood sugar was managed with sliding scale of insulin. Patient undergone treatment for lice infestation. Plastic surgeon seen the patient for skin check and pressure ulcer prevention. Plastic surgery provided recommendation to prevent skin breakdown , which were implemented in plan of care. Psychiatrist seen and evaluated patient. Psychiatric medication regimen was optimized. Psychiatrist diagnosed patient with alcohol dependency and acute metabolic encephalopathy. Patient was consulted on abstinence from alcohol. Reality orientation and supportive therapy provided. Patient clinically stabilized and was ready for discharge home. FINAL DIAGNOSES: Abnormal vaginal bleeding/ Postmenopausal bleeding - likely secondary to retained foreign body Endometrial thickening Pessary in place Status post hysteroscopy, dilatation and curettage, removal of pessary, removal of foreign body. Severe anemia due to acute blood loss , requiring blood transfusion Anemia of iron deficiency Pelvic pain-resolved Acute kidney injury - resolved Diabetes mellitus type 2 Hypercholesterolemia Hypertension Alcohol dependence Acute metabolic encephalopathy Lice infestation DISCHARGE MEDICATIONS: See Medication Reconciliation list. DISCHARGE INSTRUCTIONS: Patient was discharged home . Follow up with primary care provider in one week. I have been assigned to dictate discharge summary for this account. I was not involved in the patient's management. Maddy Molina NP Aug 11, 2018 11:28
--- NOTE | 2018-08-12 09:42 | NUR ---
*-* INSURANCE *-* DISCHARGE SUMMARY [facility] BE[facility] FX: [phone] R[place] FX: [phone]
== END 2018-08-09 18:50 | disposition home or self-care (01) | DRG 517 ==
LOC: EMR 22:56 → 4E 07-29 01:33 → EDBEDREQ 07-29 01:57 → 4E 07-29 03:37
PROC: 0UP Female Reproductive System, Removal (ICD-10-PCS; principal; 2018-08-08 09:00)
PROC: 0UDB8ZX Extraction of Endometrium, Via Natural or Artificial Opening Endoscopic, Diagnostic (ICD-10-PCS; principal; 2018-08-08 09:00)
PROC: 0UCG7ZZ Extirpation of Matter from Vagina, Via Natural or Artificial Opening (ICD-10-PCS; principal; 2018-08-08 09:00)
DX: T19.2XXA Foreign body in vulva and vagina, initial encounter (principal); N17.9 Acute kidney failure, unspecified; E11.65 Type 2 diabetes mellitus with hyperglycemia; F03.91 Unspecified dementia, unspecified severity, with behavioral disturbance; G93.41 Metabolic encephalopathy; D62 Acute posthemorrhagic anemia; X58.XXXA Exposure to other specified factors, initial encounter; Y92.9 Unspecified place or not applicable; E78.00 Pure hypercholesterolemia, unspecified; N81.4 Uterovaginal prolapse, unspecified; N93.8 Other specified abnormal uterine and vaginal bleeding; R32 Unspecified urinary incontinence; N39.0 Urinary tract infection, site not specified; B85.2 Pediculosis, unspecified; F10.20 Alcohol dependence, uncomplicated
CPT/HCPCS: 36415; 71045; 74176; 76830; 76856; 80048; 80053; 81001; 81003; 82270; 82378; 82550; 82607; 82728; 82746; 82962; 83540; 83550; 83615; 83690; 83735; 84100; 84133; 84300; 84550; 85007; 85025; 85044; 85060; 85610; 85651; 85730; 86140; 86850; 86900; 86901; 86920; 87086; 89050; 93005; 93306; 94003; 94150; 96361; 96365; 99285; J1815; J2250

== ENCOUNTER 2018-11-12 17:08 | Inpatient (IN) | payer MEDICAID ==
[~2018-11-12] VITALS: Ht 162.6 cm; Wt 67.7 kg
[~2018-11-12 17:08] MED LIST changes: +ASPIRIN81 MG ORAL; +CARVEDILOL3.125 MG ORAL; +FLUOCINONIDE-E15 G1 TP; +GABAPENTIN300 MG ORAL; +IBUPROFEN600 MG ORAL; +LISINOPRIL2.5 MG ORAL; +OLANZAPINE2.5 MG ORAL; +PLAVIX75 MG ORAL; +ZANTAC150 MG ORAL
--- NOTE | 2018-11-12 17:15 | NUR ---
ED Nurse Note: Patient brought in to ER by ambulance from home due to general weakness. patient aao x4 and ambulatory with assist. skin clean and intact but rash and redness noted on sacral area. pt had large and soft BM and was cleaned by nurse. calm and cooperative. pt is in gown and on personnel monitor. no cardiac or pulmonary distress noted at this time.
--- NOTE | 2018-11-12 17:16 | Emergency Room Report ---
History of Present Illness General Chief Complaint: Generalized Weakness Source: Patient Present Illness HPI Patient is a 73-year-old female brought in by EMS after increased generalized weakness. Patient had been having generalized body aches. Patient states that she had been having some pain to her upper back. She reports having moderate pain to multiple locations. She states that she had not been vomiting or having any diarrhea. She denies any fever. Allergies: Coded Allergies: NO KNOWN DRUG ALLERGIES (Verified Allergy, Unknown, 06/09/17) Patient History Past Medical History: see triage record Now: No Reviewed Nursing Documentation: PMH: Agreed; PSxH: Agreed Nursing Documentation-PMH Past Medical History: No History, Except For Hx Cardiac Problems: Yes Hx Hypertension: Yes Hx Diabetes: Yes Hx Cancer: No Hx Gastrointestinal Problems: Yes Hx Neurological Problems: Yes Hx Memory Loss: Yes Hx Concentration Difficulty: Yes Hx Dizziness: Yes Hx Weakness: Yes Hx Fatigue: Yes Review of Systems All Other Systems: negative except mentioned in HPI Physical Exam Vital Signs Date Time Temp Pulse Resp B/P (MAP) Pulse Ox O2 Delivery O2 Flow Rate FiO2 11/12/18 16:59 98.6 114 20 147/85 (105) 97 Room Air Sp02 EP Interpretation: reviewed, normal General Appearance: normal inspection, well appearing, no apparent distress, alert, GCS 15 Head: atraumatic ENT: normal ENT inspection, hearing grossly normal, normal voice Neck: normal inspection, full range of motion, supple, no bony tend Respiratory: normal inspection, lungs clear, normal breath sounds, no respiratory distress, no retraction, no wheezing Cardiovascular #1: regular rate, rhythm, no edema Gastrointestinal: normal inspection, soft, no guarding, no pulsatile mass, hernia - ventral reducible Genitourinary: no CVA tenderness Musculoskeletal: normal inspection, back normal, normal range of motion Neurologic: normal inspection, alert, oriented x3, responsive, rda III-XII nml as tested, speech normal Psychiatric: normal inspection, judgement/insight normal, mood/affect normal Skin: normal inspection, normal color, no rash Medical Decision Making Diagnostic Impression: Primary Impression: Partial small bowel obstruction Additional Impressions: Umbilical hernia Hydronephrosis Urinary tract infection ER Course Patient presented for increased generalized weakness and Vomiting. Differential diagnosis include was not limited to sepsis, bowel obstruction, ischemic bowel, alcohol intoxication, urinary tract infection among others. Because of complexity of patient's case laboratory testing and imaging studies were ordered. Patient given IV fluids as well as IV Rocephin after urinalysis showed some evidence of urinary infection. CT imaging of the abdomen pelvis read by radiology showed moderate to severe left hydronephrosis demonstrating increased interval change in dilation since previous CT from 3 months ago. There is a small periumbilical hernia which contains a loop of small bowel with mild distention proximal to the hernia L1 compression fracture is unchanged. Mass lobulation of the lower uterine segment which may represent a uterine fibroid. Gallstones are also seen. Patient was discussed with Dr. Mckeon for inpatient management due to prior admission. Patient was additionally discussed with Dr. Bermudez for urology consult. Dr. Hare was contacted for surgical consult. Labs Test 11/12/18 17:35 11/12/18 18:00 White Blood Count 9.1 K/UL (4.8-10.8) Red Blood Count 3.35 M/UL (4.20-5.40) Hemoglobin 10.1 G/DL (12.0-16.0) Hematocrit 28.5 % (37.0-47.0) Mean Corpuscular Volume 85 FL (80-99) Mean Corpuscular Hemoglobin 30.0 PG (27.0-31.0) Mean Corpuscular Hemoglobin Concent 35.3 G/DL (32.0-36.0) Red Cell Distribution Width 12.1 % (11.6-14.8) Platelet Count 161 K/UL (150-450) Mean Platelet Volume 6.1 FL (6.5-10.1) Neutrophils (%) (Auto) % (45.0-75.0) Lymphocytes (%) (Auto) % (20.0-45.0) Monocytes (%) (Auto) % (1.0-10.0) Eosinophils (%) (Auto) % (0.0-3.0) Basophils (%) (Auto) % (0.0-2.0) Differential Total Cells Counted 100 Neutrophils % (Manual) 79 % (45-75) Lymphocytes % (Manual) 8 % (20-45) Monocytes % (Manual) 4 % (1-10) Eosinophils % (Manual) 0 % (0-3) Basophils % (Manual) 0 % (0-2) Band Neutrophils 9 % (0-8) Platelet Estimate Adequate Platelet Morphology Normal Red Blood Cell Morphology Normal Sodium Level 139 MMOL/L (136-145) Potassium Level 3.8 MMOL/L (3.5-5.1) Chloride Level 105 MMOL/L (98-107) Carbon Dioxide Level 21 MMOL/L (21-32) Anion Gap 13 mmol/L (5-15) Blood Urea Nitrogen 28 mg/dL (7-18) Creatinine 1.1 MG/DL (0.55-1.30) Estimat Glomerular Filtration Rate mL/min (>60) Glucose Level 198 MG/DL (74-106) Lactic Acid Level 1.90 mmol/L (0.4-2.0) Calcium Level 8.4 MG/DL (8.5-10.1) Phosphorus Level 2.5 MG/DL (2.5-4.9) Magnesium Level 1.7 MG/DL (1.8-2.4) Total Bilirubin 0.4 MG/DL (0.2-1.0) Aspartate Amino Transf (AST/SGOT) 17 U/L (15-37) Alanine Aminotransferase (ALT/SGPT) 14 U/L (12-78) Alkaline Phosphatase 122 U/L (46-116) Total Creatine Kinase 48 U/L (26-308) Creatine Kinase MB 1.0 NG/ML (0.0-3.6) Creatine Kinase MB Relative Index 2.0 Troponin I 0.002 ng/mL (0.000-0.056) Total Protein 7.1 G/DL (6.4-8.2) Albumin 3.2 G/DL (3.4-5.0) Globulin 3.9 g/dL Albumin/Globulin Ratio 0.8 (1.0-2.7) Serum Alcohol < 3 mg/dL Urine Color Yellow Urine Appearance Cloudy Urine pH 5 (4.5-8.0) Urine Specific [place] 1.010 (1.005-1.035) Urine Protein 3+ (NEGATIVE) Urine Glucose (UA) Negative (NEGATIVE) Urine Ketones Negative (NEGATIVE) Urine Blood 4+ (NEGATIVE) Urine Nitrite Negative (NEGATIVE) Urine Bilirubin Negative (NEGATIVE) Urine Urobilinogen 1 MG/DL (0.0-1.0) Urine Leukocyte Esterase 3+ (NEGATIVE) Urine RBC 5-10 /HPF (0 - 2) Urine WBC 5-10 /HPF (0 - 2) Urine Squamous Epithelial Cells Occasional /LPF Urine Bacteria Many /HPF (NONE) Last Vital Signs Date Time Temp Pulse Resp B/P (MAP) Pulse Ox O2 Delivery O2 Flow Rate FiO2 11/12/18 16:59 98.6 114 20 147/85 (105) 97 Room Air Status: improved Disposition: ADMITTED INPATIENT Condition: Serious Angel Rivers MD Nov 12, 2018 17:16
[2018-11-12 17:20] VITALS: BP 136/77
[2018-11-12 17:51] LABS: HEMATOCRIT 28.5 % (37.0-47.0); HEMOGLOBIN 10.1 G/DL (12.0-16.0); MEAN CORPUSCULAR VOLUME 85 FL (80-99); PLATELET COUNT 161 K/UL (150-450); RED BLOOD COUNT 3.35 M/UL (4.20-5.40); RED CELL DISTRIBUTION WIDTH 12.1 % (11.6-14.8); WHITE BLOOD COUNT 9.1 K/UL (4.8-10.8)
[2018-11-12 18:02] LABS: ANION GAP 13 mmol/L (5-15); BLOOD UREA NITROGEN 28 mg/dL (7-18); CALCIUM 8.4 MG/DL (8.5-10.1); CARBON DIOXIDE 21 MMOL/L (21-32); CHLORIDE 105 MMOL/L (98-107); CREATININE 1.1 MG/DL (0.55-1.30); POTASSIUM 3.8 MMOL/L (3.5-5.1); SODIUM 139 MMOL/L (136-145)
[2018-11-12 18:15] LABS: ALANINE AMINOTRANSFERASE 14 U/L (12-78); ALBUMIN 3.2 G/DL (3.4-5.0); ALBUMIN/GLOBULIN RATIO 0.8 (1.0-2.7); ALKALINE PHOSPHATASE 122 U/L (46-116); ASPARTATE AMINO TRANSFERASE 17 U/L (15-37); BILIRUBIN,TOTAL 0.4 MG/DL (0.2-1.0); CREATINE KINASE 48 U/L (26-308); PHOSPHORUS 2.5 MG/DL (2.5-4.9)
--- NOTE | 2018-11-12 18:17 | Diagnostic Imaging Report ---
EXAM: XR Chest, 1 View CLINICAL HISTORY: SOB TECHNIQUE: Frontal view of the chest. COMPARISON: Chest x-ray 08/01/2018 FINDINGS: Lungs: Lungs are clear Pleural space: No evidence of pleural effusion or pneumothorax. Heart: Heart size is within normal limits. Mediastinum: Mediastinal structures are unremarkable. Bones/joints: Imaged bony thorax is unremarkable. Vasculature: Thoracic aorta is mildly elongated, unchanged IMPRESSION: No evidence of acute cardiopulmonary disease.
[2018-11-12] MEDS ORDERED: NAPROXEN250 M1 PO (18:24)
[2018-11-12] MEDS ORDERED: LIPITOR80 MG ORAL (18:24)
[2018-11-12 19:00] LABS: APPEARANCE,URINE CLOUDY; BILIRUBIN, URINE NEGATIVE (NEGATIVE); GLUCOSE, URINE (UA) NEGATIVE (NEGATIVE); KETONES,URINE NEGATIVE (NEGATIVE); LEUKOCYTE ESTERASE ,URINE 3+ (NEGATIVE); NITRITE,URINE NEGATIVE (NEGATIVE); PH,URINE 5 (4.5-8.0); PROTEIN,URINE 3+ (NEGATIVE); UROBILINOGEN,URINE 1 MG/DL (0.0-1.0)
[2018-11-12] MEDS ORDERED: Isovue-300 100ml vial INJ PRN (19:00)
--- NOTE | 2018-11-12 19:00 | NUR ---
HAND-OFF: Report given to MARYANNE Mendiola. no orders to carry at this moment.
[2018-11-12 19:01] LABS: COLOR,URINE YELLOW
[2018-11-12 19:39] VITALS: BP 132/80
--- NOTE | 2018-11-12 20:19 | Diagnostic Imaging Report ---
EXAM: CT Abdomen and Pelvis With Intravenous Contrast CLINICAL HISTORY: PAIN TECHNIQUE: Axial computed tomography images of the abdomen and pelvis with intravenous contrast. CTDI is 16.3 mGy and DLP is 781 mGy-cm. One or more of the following dose reduction techniques were used: automated exposure control, adjustment of the mA and/or kV according to patient size, use of iterative reconstruction technique. COMPARISON: CT abdomen-pelvis 07/28/2018 FINDINGS: Lung bases: Imaged lung bases are clear. Mediastinum: Small hiatal hernia. ABDOMEN: Liver: Liver is unremarkable. Gallbladder and bile ducts: Cholelithiasis with small gallstones as Magdalena described. No evidence of biliary dilatation. Pancreas: Pancreas is unremarkable. Spleen: Spleen is unremarkable. Adrenals: No adrenal masses. Kidneys and ureters: Right kidney is unremarkable. Atrophic left kidney with mildly decreased left nephrogram. Moderate to severe left hydronephrosis demonstrating interval increase in degree of dilatation since 07/28/2018. No obstructing calculus identified. Left ureter is not dilated. Stomach and bowel: Small periumbilical hernia which now contains a loop of small bowel. Mild distention of small bowel proximal to hernia suggesting early or partial small bowel obstruction. No evidence of pneumoperitoneum. PELVIS: Appendix: No findings to suggest acute appendicitis. Bladder: Urinary bladder is unremarkable. No bladder calculi. Reproductive: Lobulation along posterior aspect of the lower uterine segment raising possibility of uterine fibroid, although this extends to region of cervix and cervical mass/neoplasm cannot be excluded. ABDOMEN and PELVIS: Intraperitoneal space: No evidence of pneumoperitoneum. Bones/joints: Moderate L1 vertebral compression fracture which is chronic and unchanged. Advanced degenerative changes throughout the lumbar spine. Soft tissues: See above. Vasculature: No abdominal aortic aneurysm. Moderate calcific atherosclerotic disease. Lymph nodes: No evidence of lymphadenopathy. IMPRESSION: Small periumbilical hernia which now contains loop of small bowel with findings suggesting early or partial small bowel obstruction. Atrophic left kidney with mildly diminished nephrogram. Moderate to severe left hydronephrosis demonstrating interval progression since 07/28/2018. Findings suggest obstruction at level of ureteropelvic junction. No obstructing calculus identified. Masslike lobulation along lower uterine segment which may reflect uterine fibroid, but cannot exclude possibility of cervical mass/neoplasm. Clinical correlation with gynecologic examination is suggested. Follow- up pelvic ultrasound may be considered. Cholelithiasis. <MYCVCSECTION> [employer] 11/12/18 20:30 Verify Receipt Verified receipt with Dr. Rivers on 11/12 20:29 (-07:00)
[2018-11-12] MEDS ORDERED: cefTRIAXone 1 GM in NS 55 ML IVPB ONE (20:30)
--- NOTE | 2018-11-12 21:00 | NUR ---
ED Nurse Note: Pt resting in bed, eating a sandwhich, with daughter at bedside, rocephin running per order. Will continue to monitor
--- NOTE | 2018-11-12 21:30 | NUR ---
TRANSFER TO FLOOR: Patient transferred to as ordered, per Dr. Mckeon. Report given to MARYANNE Pérez. Belongings and medications given to . Family and or S/O informed of transfer.
[2018-11-12 22:00] VITALS: BP 109/54
--- NOTE | 2018-11-12 22:00 | NUR ---
NURSE NOTES: Pt brought up on earl from ER. Got report from Marlena MADDEN. Pt in stable condition. Denies any pain. No s/s of distress or discomfort noted. Pt states that she is here because she felt weak all of a sudden. The pts daughter says that it is not her mother's normal to be like this and she was walking around the house fine yesterday. VSS BP:109/54 HR:80 T:97.5 R18 O2:97% on room air. Pt resting in bed comfortably. Rash/redness noted on sacral area; pictures taken in ER. Pt resting in bed comfortably. Bed in low and locked position, call light within reach, bedside table within reach. Continue to monitor. Orders placed by Dr. Quezada
[2018-11-12] MEDS ORDERED: Albuterol/Ipratropium 3ml neb HHN PRN (22:30)
[2018-11-12] MEDS ORDERED: Morphine Sulfate 2mg/ml Inj(IV/IM USE ONLY) IVP PRN (22:30)
[2018-11-12] MEDS ORDERED: Miralax 17gm pkt ORAL PRN (22:30)
[2018-11-12] MEDS ORDERED: Nitroglycerin Subl 0.4mg tab SL PRN (22:30)
[2018-11-12] MEDS ORDERED: Vancomycin 1 GM in D5W 275 ML IVPB SCH (23:00)
[2018-11-13] VITALS (7 sets, daily range): BP systolic 110–135; BP diastolic 52–86
[2018-11-13] MEDS: NovoLOG Insulin Flexpen SUBQ SCH ×4 (06:30→21:00)
--- NOTE | 2018-11-13 07:00 | NUR ---
HAND-OFF: Report given to Anna RN. Endorsed plan of care.
[2018-11-13 07:25] LABS: BASOPHILS % (AUTO) 0.6 % (0.0-2.0); EOSINOPHILS % (AUTO) 0.9 % (0.0-3.0); HEMATOCRIT 28.7 % (37.0-47.0); HEMOGLOBIN 9.9 G/DL (12.0-16.0); LYMPHOCYTES % (AUTO) 22.4 % (20.0-45.0); MEAN CORPUSCULAR VOLUME 88 FL (80-99); MONOCYTES % (AUTO) 11.6 % (1.0-10.0); NEUTROPHILS % (AUTO) 64.5 % (45.0-75.0); PLATELET COUNT 189 K/UL (150-450); RED BLOOD COUNT 3.25 M/UL (4.20-5.40); RED CELL DISTRIBUTION WIDTH 12.4 % (11.6-14.8); WHITE BLOOD COUNT 9.4 K/UL (4.8-10.8)
[2018-11-13 07:38] LABS: ALANINE AMINOTRANSFERASE 19 U/L (12-78); ALBUMIN/GLOBULIN RATIO 0.8 (1.0-2.7); ALKALINE PHOSPHATASE 110 U/L (46-116); ANION GAP 10 mmol/L (5-15); ASPARTATE AMINO TRANSFERASE 18 U/L (15-37); BILIRUBIN,TOTAL 0.2 MG/DL (0.2-1.0); BLOOD UREA NITROGEN 24 mg/dL (7-18); CALCIUM 8.4 MG/DL (8.5-10.1); CARBON DIOXIDE 24 MMOL/L (21-32); CHLORIDE 107 MMOL/L (98-107); POTASSIUM 3.9 MMOL/L (3.5-5.1); SODIUM 140 MMOL/L (136-145)
--- NOTE | 2018-11-13 07:54 | NUR ---
NURSE NOTES: Received report from Kendall/RN. Patient is awake, eating breakfast. No signs of acute distress/SOB noted; denies pain at this time. Checked IV site; patent, No bleeding or infiltration noted. Belonging easily assessable. Bed in lowest position and locked. Call light within reach. Will continue plan of care.
--- NOTE | 2018-11-13 08:57 | Consultation ---
History of Present Illness General Date patient seen: Nov 13, 2018 Chief Complaint: Generalized Weakness Reason for Consultation: UTI Present Illness HPI Ms. Arias is a 73 yo female with PMHx of HTN and DM who presented to the ED on 11/12/18 with one day of weakness. She reports generalized body aches as well. In the ED she was afebrile and had no leukocytosis. UA was positive and she is now growing GNR in her urine. She denies dysuria and hematuria and syas that she feel stonger. A CT scan of the abd showed early or partal SBO along with periumbilical hernia. The patient how ever has been tolerating PO diet. ID was consulted for UTI PMHx/PSHx HTN DM SocHx No current E/T/D FamHx Not Contributory Allergies: Coded Allergies: NO KNOWN DRUG ALLERGIES (Verified Allergy, Unknown, 06/09/17) Medication History Scheduled Aspirin* (Aspirin*), 81 MG ORAL DAILY, (Reported) Atorvastatin (Lipitor), 80 MG ORAL BEDTIME, (Reported) Carvedilol* (Carvedilol*), 3.125 MG ORAL EVERY 12 HOURS, (Reported) Clopidogrel Bisulfate* (Plavix*), 75 MG ORAL DAILY, (Reported) Gabapentin* (Gabapentin*), 300 MG ORAL BEDTIME, (Reported) Lisinopril* (Lisinopril*), 2.5 MG ORAL DAILY, (Reported) Metformin Hcl* (Metformin Hcl*), 500 MG ORAL TWICE A DAY, (Reported) Naproxen (Naproxen), 500 MG PO TWICE A DAY, (Reported) Olanzapine (Olanzapine), 2.5 MG ORAL BID Ranitidine Hcl* (Zantac*), 150 MG ORAL TWICE A DAY, (Reported) Scheduled PRN Ibuprofen* (Motrin*), 400 MG ORAL Q6H PRN for For Pain, (Reported) Miscellaneous Medications Fluocinonide/Emollient (Fluocinonide-E 0.05% Cream), 15 GM TP, (Reported) Patient History Healthcare decision maker N Resuscitation status Advanced Directive on File Review of Systems ROS Narrative 12 point ROS negative except as noted in the HPI Physical Exam Last 24 Hour Vital Signs Date Time Temp Pulse Resp B/P (MAP) Pulse Ox O2 Delivery O2 Flow Rate FiO2 11/13/18 08:00 98.2 66 18 127/63 (84) 99 11/13/18 04:05 62 11/13/18 03:54 98.3 66 18 119/71 (87) 98 11/13/18 00:18 Room Air 11/13/18 00:07 69 11/13/18 00:05 97.5 71 18 123/58 (79) 97 11/12/18 23:00 80 109/54 11/12/18 22:30 Room Air 11/12/18 22:00 97.5 81 18 109/54 (72) 97 11/12/18 22:00 86 11/12/18 21:50 97.8 68 18 142/82 96 Room Air 11/12/18 19:39 98.4 82 16 132/80 97 Room Air 11/12/18 17:20 98.6 85 20 136/77 96 Room Air 11/12/18 17:20 85 17 Room Air 11/12/18 16:59 98.6 114 20 147/85 (105) 97 Room Air Intake and Output 11/12/18 11/13/18 19:00 07:00 Intake Total 0 ml Balance 0 ml Intake Oral 0 ml # Voids 2 # Bowel Movements 2 Laboratory Tests Test 11/12/18 17:35 11/12/18 18:00 11/13/18 06:05 White Blood Count 9.1 K/UL (4.8-10.8) 9.4 K/UL (4.8-10.8) Red Blood Count 3.35 M/UL (4.20-5.40) L 3.25 M/UL (4.20-5.40) L Hemoglobin 10.1 G/DL (12.0-16.0) L 9.9 G/DL (12.0-16.0) L Hematocrit 28.5 % (37.0-47.0) L 28.7 % (37.0-47.0) L Mean Corpuscular Volume 85 FL (80-99) 88 FL (80-99) Mean Corpuscular Hemoglobin 30.0 PG (27.0-31.0) 30.5 PG (27.0-31.0) Mean Corpuscular Hemoglobin Concent 35.3 G/DL (32.0-36.0) 34.5 G/DL (32.0-36.0) Red Cell Distribution Width 12.1 % (11.6-14.8) 12.4 % (11.6-14.8) Platelet Count 161 K/UL (150-450) 189 K/UL (150-450) Mean Platelet Volume 6.1 FL (6.5-10.1) L 7.5 FL (6.5-10.1) Neutrophils (%) (Auto) % (45.0-75.0) 64.5 % (45.0-75.0) Lymphocytes (%) (Auto) % (20.0-45.0) 22.4 % (20.0-45.0) Monocytes (%) (Auto) % (1.0-10.0) 11.6 % (1.0-10.0) H Eosinophils (%) (Auto) % (0.0-3.0) 0.9 % (0.0-3.0) Basophils (%) (Auto) % (0.0-2.0) 0.6 % (0.0-2.0) Differential Total Cells Counted 100 Neutrophils % (Manual) 79 % (45-75) H Lymphocytes % (Manual) 8 % (20-45) L Monocytes % (Manual) 4 % (1-10) Eosinophils % (Manual) 0 % (0-3) Basophils % (Manual) 0 % (0-2) Band Neutrophils 9 % (0-8) H Platelet Estimate Adequate Platelet Morphology Normal Red Blood Cell Morphology Normal Sodium Level 139 MMOL/L (136-145) 140 MMOL/L (136-145) Potassium Level 3.8 MMOL/L (3.5-5.1) 3.9 MMOL/L (3.5-5.1) Chloride Level 105 MMOL/L (98-107) 107 MMOL/L (98-107) Carbon Dioxide Level 21 MMOL/L (21-32) 24 MMOL/L (21-32) Anion Gap 13 mmol/L (5-15) 10 mmol/L (5-15) Blood Urea Nitrogen 28 mg/dL (7-18) H 24 mg/dL (7-18) H Creatinine 1.1 MG/DL (0.55-1.30) 1.0 MG/DL (0.55-1.30) Estimat Glomerular Filtration Rate mL/min (>60) mL/min (>60) Glucose Level 198 MG/DL (74-106) H 125 MG/DL (74-106) H Lactic Acid Level 1.90 mmol/L (0.4-2.0) Calcium Level 8.4 MG/DL (8.5-10.1) L 8.4 MG/DL (8.5-10.1) L Phosphorus Level 2.5 MG/DL (2.5-4.9) Magnesium Level 1.7 MG/DL (1.8-2.4) L Total Bilirubin 0.4 MG/DL (0.2-1.0) 0.2 MG/DL (0.2-1.0) Aspartate Amino Transf (AST/SGOT) 17 U/L (15-37) 18 U/L (15-37) Alanine Aminotransferase (ALT/SGPT) 14 U/L (12-78) 19 U/L (12-78) Alkaline Phosphatase 122 U/L (46-116) H 110 U/L (46-116) Total Creatine Kinase 48 U/L (26-308) Creatine Kinase MB 1.0 NG/ML (0.0-3.6) Creatine Kinase MB Relative Index 2.0 Troponin I 0.002 ng/mL (0.000-0.056) Total Protein 7.1 G/DL (6.4-8.2) 6.8 G/DL (6.4-8.2) Albumin 3.2 G/DL (3.4-5.0) L 3.0 G/DL (3.4-5.0) L Globulin 3.9 g/dL 3.8 g/dL Albumin/Globulin Ratio 0.8 (1.0-2.7) L 0.8 (1.0-2.7) L Serum Alcohol < 3 mg/dL Urine Color Yellow Urine Appearance Cloudy Urine pH 5 (4.5-8.0) Urine Specific [place] 1.010 (1.005-1.035) Urine Protein 3+ (NEGATIVE) H Urine Glucose (UA) Negative (NEGATIVE) Urine Ketones Negative (NEGATIVE) Urine Blood 4+ (NEGATIVE) H Urine Nitrite Negative (NEGATIVE) Urine Bilirubin Negative (NEGATIVE) Urine Urobilinogen 1 MG/DL (0.0-1.0) H Urine Leukocyte Esterase 3+ (NEGATIVE) H Urine RBC 5-10 /HPF (0 - 2) H Urine WBC 5-10 /HPF (0 - 2) H Urine Squamous Epithelial Cells Occasional /LPF Urine Bacteria Many /HPF (NONE) H Microbiology Date/Time Source Procedure Growth Status 11/12/18 18:00 Urine,Clean Catch Urine Culture - Preliminary Gram Negative Vik Resulted Height (Feet): 5 Height (Inches): 4.00 Weight (Pounds): 160 Medications Current Medications Medications (Trade) Dose Ordered Sig/Kannan Route PRN Reason Start Time Stop Time Status Last Admin Dose Admin Acetaminophen (Tylenol) 650 mg Q4H PRN ORAL fever 11/12/18 22:30 12/12/18 22:29 Albuterol/ Ipratropium (Albuterol/ Ipratropium) 3 ml EVERY 4 HOURS PRN HHN Shortness of Breath 11/12/18 22:30 11/17/18 22:29 Carvedilol (Coreg) 3.125 mg EVERY 12 HOURS ORAL 11/12/18 23:00 12/12/18 22:59 Cefepime HCl 2 gm/ Dextrose 110 ml @ 220 mls/hr Q24H IV 11/13/18 09:00 11/20/18 08:59 Clopidogrel Bisulfate (Plavix) 75 mg DAILY ORAL 11/13/18 09:00 12/13/18 08:59 Dextrose (Dextrose 50%) STAT PRN IV Hypoglycemia 11/12/18 22:30 12/12/18 22:29 Gabapentin (Neurontin) 300 mg BEDTIME ORAL 11/12/18 23:00 12/12/18 22:59 Heparin Sodium (Porcine) (Heparin 5000 units/ml) 5,000 units EVERY 12 HOURS SUBQ 11/13/18 09:00 12/13/18 08:59 Insulin Aspart (NovoLOG) BEFORE MEALS AND HS SUBQ 11/13/18 06:30 12/13/18 06:29 Iopamidol (Isovue-300 100ml) 100 ml NOW PRN INJ Radiology Procedure 11/12/18 19:00 Morphine Sulfate (Morphine Sulfate) 2 mg Q4H PRN IVP Moderate Pain (Pain Scale 4-6) 11/12/18 22:30 11/19/18 22:29 Nitroglycerin (Ntg) 0.4 mg Q5M PRN SL Prn Chest Pain 11/12/18 22:30 12/12/18 22:29 Olanzapine (ZyPREXA) 2.5 mg BID ORAL 11/13/18 09:00 12/13/18 08:59 Ondansetron HCl (Zofran) 4 mg Q6H PRN IVP Nausea & Vomiting 11/12/18 22:30 12/12/18 22:29 Polyethylene Glycol (Miralax) 17 gm DAILYPRN PRN ORAL Constipation 11/12/18 22:30 12/12/18 22:29 Temazepam (Restoril) 15 mg HSPRN PRN ORAL Insomnia 11/12/18 22:30 11/19/18 22:29 Vancomycin HCl (Vanco rx to dose) 1 ea DAILY PRN MISC PER RX PROTOCOL 11/13/18 07:30 12/13/18 07:29 Vancomycin HCl 1 gm/Dextrose 275 ml @ 183.3 mls/ hr Q24H IVPB 11/12/18 23:00 11/17/18 22:59 Objective Narrative Gen: NAD HEENT: NCAT, MMM, EOMI, PERRL, No Oral lesion, no scleral icterus NECK: full range of motion, supple, no meningismus, No LAD, No JVD LUNGS: CTAB, No W/C, No Accessory muscle use CARDS: RRR, S1, S2, No M/R/G, ABD: Soft, NT, ND, No R/G, + BS, No HSM, No Masses : Deferred Ext: C/C/E, Pulses 2+ B/L (DP, Rad): NEURO: A/O x 4, Strength and Sensation Grossly intact PSYCH: Normal mood and affect SKIN: Warm/dry, No rashes Assessment/Plan Assessment/Plan: 73 yo female with PMHx of HTN and DM who presented ot the ED on 11/12/18 with one day of weakness. UTI UCx 11/12/18- Pend No Fever No leukcoytosis Periumbilical hernia A CT scan (11/12/18) of the abd showed early or partal SBO along with periumbilical hernia. The patient how ever has been tolerating PO diet. HTN DM PLAN: - Contiue Cefepime #1 - 11/13/18 SP Flagyl #1 - f/u urine Cx - Monitor CBC and Temps Thank you for this consult. We will continue to follow the patient during this hospitalization. Ethan Bell MD Nov 13, 2018 08:57
[2018-11-13] MEDS ORDERED: Heparin 5000 units/ml inj SUBQ SCH (09:00)
[2018-11-13] MEDS ORDERED: Vancomycin 1 GM in D5W 275 ML IVPB SCH (09:00)
[2018-11-13] MEDS ORDERED: OLANZapine 2.5mg tab ORAL SCH (09:00)
[2018-11-13] MEDS ORDERED: Cefepime HCl 2 GM in D5W 110 ML IV SCH (09:00)
--- NOTE | 2018-11-13 12:26 | NUR ---
CASE MANAGEMENT: INITIAL REVIEW 73 YO F KYLE FROM HOME CC: GEN WEAKNESS PMHx: HTN. DM. SI:GEN WEAKNESS. POSSIBLE SEPSIS. T 98.6 HR 114 RR 20 B/P 147/85 SATS 97% ON RA BUN 28 GLU 198 MG 1.7 ALP 122 IS:NS BOLUS X1 PATIENT ADMITTED TO TELE 11/12/2018 @ 2002 DCP: PATIENT TO BE DISCHARGED TO HOME ONCE MEDICALLY CLEARED. PLAN OF CARE: IV ANTIBX (FLAGYL AND CEFEPIME) Addendum: 11/13/18 at 1234 by Mirtha Johnson 11/13/2018 SI:GEN WEAKNESS. POSSIBLE SEPSIS. T 98.2 HR 66 RR 18 B/P 127/63 SATS 99% ON RA BUN 24 GLU 125 CA 8.4 IS:COREG PO Q12H GABAPENTIN PO QHS ZYPREXA PO BID PLAVIX PO QD INSULIN ASPART SUBQ AC/HS CEFEPIME IV Q24H VANCO IV Q24H TELE STATUS DCP: PATIENT TO BE DISCHARGED TO HOME ONCE MEDICALLY CLEARED. PLAN OF CARE: IV ANTIBX (FLAGYL AND CEFEPIME) Addendum: 11/13/18 at 1856 by Mirtha Johnson CM INTERJUMA HANSEN
--- NOTE | 2018-11-13 13:12 | Consultation ---
History of Present Illness General Date patient seen: Nov 13, 2018 Reason for Hospitalization: Generalized Weakness Present Illness HPI This is a very pleasant 73-year-old female with history of diabetes and hypertension who presented to the emergency department at [facility] complaining of generalized body aches weakness. Patient was feeling unwell but denied any pain. No nausea vomiting fever chills. Was admitted for further evaluation, work-up, care and management. Labs without leukocytosis, patient afebrile, UTI identified. CT abdomen pelvis performed in the emergency department to evaluate patient's overall generalized discomfort and weakness and identified a periumbilical ventral hernia with bowel contents and question of potential bowel obstruction. Surgery called to evaluate. Patient seen, patient evaluated, chart reviewed. Patient currently denies any nausea vomiting. States that she is able to eat without difficulty. Denies any abdominal pain. Cannot recall her last flatus but states last bowel movement was yesterday. Has not had a bowel movement today. Allergies: Coded Allergies: NO KNOWN DRUG ALLERGIES (Verified Allergy, Unknown, 06/09/17) Medication History Scheduled Aspirin* (Aspirin*), 81 MG ORAL DAILY, (Reported) Atorvastatin (Lipitor), 80 MG ORAL BEDTIME, (Reported) Carvedilol* (Carvedilol*), 3.125 MG ORAL EVERY 12 HOURS, (Reported) Clopidogrel Bisulfate* (Plavix*), 75 MG ORAL DAILY, (Reported) Gabapentin* (Gabapentin*), 300 MG ORAL BEDTIME, (Reported) Lisinopril* (Lisinopril*), 2.5 MG ORAL DAILY, (Reported) Metformin Hcl* (Metformin Hcl*), 500 MG ORAL TWICE A DAY, (Reported) Naproxen (Naproxen), 500 MG PO TWICE A DAY, (Reported) Olanzapine (Olanzapine), 2.5 MG ORAL BID Ranitidine Hcl* (Zantac*), 150 MG ORAL TWICE A DAY, (Reported) Scheduled PRN Ibuprofen* (Motrin*), 400 MG ORAL Q6H PRN for For Pain, (Reported) Miscellaneous Medications Fluocinonide/Emollient (Fluocinonide-E 0.05% Cream), 15 GM TP, (Reported) Patient History History Provided By: Patient, Medical Record, PMD Healthcare decision maker N Resuscitation status Advanced Directive on File Past Medical/Surgical History Past Medical/Surgical History: (1) Acute metabolic encephalopathy (2) Urinary tract infection (3) Hydronephrosis (4) Umbilical hernia (5) Partial small bowel obstruction (6) Generalized weakness (7) Diabetes mellitus (8) Hypertension, uncontrolled (9) Hypercholesterolemia (10) Alcohol dependence (11) Incontinence Review of Systems Review of Symptoms General ROS: no weight loss or fever Psychological ROS: no depression or mood changes, no memory loss Ophthalmic ROS: no visual changes or eye irritation ENT ROS: no nasal congestion, hearing loss, dizziness Allergy and Immunology ROS: no allergic symptoms or urticaria Hematological and Lymphatic ROS: no swollen glands, unusual bleeding or bruising Endocrine ROS: no polyuria, polydipsia, weight changes, temperature intolerance Respiratory ROS: no cough, shortness of breath, or wheezing Cardiovascular ROS: no chest pain or dyspnea on exertion Gastrointestinal ROS: denies abdominal pain, no bright red blood in stool. Musculoskeletal ROS: no myalgias or arthralgias Neurological ROS: no TIA or stroke symptoms Dermatological ROS: no new or changing skin lesions, rashes or pruritis Physical Exam Physical Exam General appearance: alert, cooperative, no distress, appears stated age Head: Normocephalic, without obvious abnormality, atraumatic Eyes: conjunctivae/corneas clear. PERRL, EOM's intact. Fundi benign Throat: Lips, mucosa, and tongue normal. Teeth and gums normal Neck: supple, symmetrical, trachea midline, no adenopathy, thyroid: not enlarged, symmetric, no tenderness/mass/nodules, no carotid bruit and no JVD Lungs: clear to auscultation bilaterally Heart: regular rate and rhythm, S1, S2 normal, no murmur, click, rub or gallop Abdomen: soft, non-tender. Bowel sounds normal. No masses, no organomegaly. hernia not palpable as possibly already reduced? defect not palpable given adipose tissue Extremities: extremities normal, atraumatic, no cyanosis or edema Pulses: 2+ and symmetric Skin: Skin color, texture, turgor normal. No rashes or lesions Neurologic: Grossly normal Last 24 Hour Vital Signs Date Time Temp Pulse Resp B/P (MAP) Pulse Ox O2 Delivery O2 Flow Rate FiO2 11/13/18 12:00 64 11/13/18 12:00 98.0 65 18 128/52 (77) 98 11/13/18 09:33 66 127/63 11/13/18 08:00 65 6/23/19 08:00 98.2 66 18 127/63 (84) 99 11/13/18 04:05 62 11/13/18 03:54 98.3 66 18 119/71 (87) 98 11/13/18 00:18 Room Air 11/13/18 00:07 69 11/13/18 00:05 97.5 71 18 123/58 (79) 97 11/12/18 23:00 80 109/54 11/12/18 22:30 Room Air 11/12/18 22:00 97.5 81 18 109/54 (72) 97 11/12/18 22:00 86 11/12/18 21:50 97.8 68 18 142/82 96 Room Air 11/12/18 19:39 98.4 82 16 132/80 97 Room Air 11/12/18 17:20 98.6 85 20 136/77 96 Room Air 11/12/18 17:20 85 17 Room Air 11/12/18 16:59 98.6 114 20 147/85 (105) 97 Room Air Intake and Output 11/12/18 11/13/18 19:00 07:00 Intake Total 0 ml Balance 0 ml Intake Oral 0 ml # Voids 2 # Bowel Movements 2 Laboratory Tests Test 11/12/18 17:35 11/12/18 18:00 11/13/18 06:05 White Blood Count 9.1 K/UL (4.8-10.8) 9.4 K/UL (4.8-10.8) Red Blood Count 3.35 M/UL (4.20-5.40) L 3.25 M/UL (4.20-5.40) L Hemoglobin 10.1 G/DL (12.0-16.0) L 9.9 G/DL (12.0-16.0) L Hematocrit 28.5 % (37.0-47.0) L 28.7 % (37.0-47.0) L Mean Corpuscular Volume 85 FL (80-99) 88 FL (80-99) Mean Corpuscular Hemoglobin 30.0 PG (27.0-31.0) 30.5 PG (27.0-31.0) Mean Corpuscular Hemoglobin Concent 35.3 G/DL (32.0-36.0) 34.5 G/DL (32.0-36.0) Red Cell Distribution Width 12.1 % (11.6-14.8) 12.4 % (11.6-14.8) Platelet Count 161 K/UL (150-450) 189 K/UL (150-450) Mean Platelet Volume 6.1 FL (6.5-10.1) L 7.5 FL (6.5-10.1) Neutrophils (%) (Auto) % (45.0-75.0) 64.5 % (45.0-75.0) Lymphocytes (%) (Auto) % (20.0-45.0) 22.4 % (20.0-45.0) Monocytes (%) (Auto) % (1.0-10.0) 11.6 % (1.0-10.0) H Eosinophils (%) (Auto) % (0.0-3.0) 0.9 % (0.0-3.0) Basophils (%) (Auto) % (0.0-2.0) 0.6 % (0.0-2.0) Differential Total Cells Counted 100 Neutrophils % (Manual) 79 % (45-75) H Lymphocytes % (Manual) 8 % (20-45) L Monocytes % (Manual) 4 % (1-10) Eosinophils % (Manual) 0 % (0-3) Basophils % (Manual) 0 % (0-2) Band Neutrophils 9 % (0-8) H Platelet Estimate Adequate Platelet Morphology Normal Red Blood Cell Morphology Normal Sodium Level 139 MMOL/L (136-145) 140 MMOL/L (136-145) Potassium Level 3.8 MMOL/L (3.5-5.1) 3.9 MMOL/L (3.5-5.1) Chloride Level 105 MMOL/L (98-107) 107 MMOL/L (98-107) Carbon Dioxide Level 21 MMOL/L (21-32) 24 MMOL/L (21-32) Anion Gap 13 mmol/L (5-15) 10 mmol/L (5-15) Blood Urea Nitrogen 28 mg/dL (7-18) H 24 mg/dL (7-18) H Creatinine 1.1 MG/DL (0.55-1.30) 1.0 MG/DL (0.55-1.30) Estimat Glomerular Filtration Rate mL/min (>60) mL/min (>60) Glucose Level 198 MG/DL (74-106) H 125 MG/DL (74-106) H Lactic Acid Level 1.90 mmol/L (0.4-2.0) Calcium Level 8.4 MG/DL (8.5-10.1) L 8.4 MG/DL (8.5-10.1) L Phosphorus Level 2.5 MG/DL (2.5-4.9) Magnesium Level 1.7 MG/DL (1.8-2.4) L Total Bilirubin 0.4 MG/DL (0.2-1.0) 0.2 MG/DL (0.2-1.0) Aspartate Amino Transf (AST/SGOT) 17 U/L (15-37) 18 U/L (15-37) Alanine Aminotransferase (ALT/SGPT) 14 U/L (12-78) 19 U/L (12-78) Alkaline Phosphatase 122 U/L (46-116) H 110 U/L (46-116) Total Creatine Kinase 48 U/L (26-308) Creatine Kinase MB 1.0 NG/ML (0.0-3.6) Creatine Kinase MB Relative Index 2.0 Troponin I 0.002 ng/mL (0.000-0.056) Total Protein 7.1 G/DL (6.4-8.2) 6.8 G/DL (6.4-8.2) Albumin 3.2 G/DL (3.4-5.0) L 3.0 G/DL (3.4-5.0) L Globulin 3.9 g/dL 3.8 g/dL Albumin/Globulin Ratio 0.8 (1.0-2.7) L 0.8 (1.0-2.7) L Serum Alcohol < 3 mg/dL Urine Color Yellow Urine Appearance Cloudy Urine pH 5 (4.5-8.0) Urine Specific [place] 1.010 (1.005-1.035) Urine Protein 3+ (NEGATIVE) H Urine Glucose (UA) Negative (NEGATIVE) Urine Ketones Negative (NEGATIVE) Urine Blood 4+ (NEGATIVE) H Urine Nitrite Negative (NEGATIVE) Urine Bilirubin Negative (NEGATIVE) Urine Urobilinogen 1 MG/DL (0.0-1.0) H Urine Leukocyte Esterase 3+ (NEGATIVE) H Urine RBC 5-10 /HPF (0 - 2) H Urine WBC 5-10 /HPF (0 - 2) H Urine Squamous Epithelial Cells Occasional /LPF Urine Bacteria Many /HPF (NONE) H Microbiology Date/Time Source Procedure Growth Status 11/12/18 18:00 Urine,Clean Catch Urine Culture - Preliminary Gram Negative Vik Resulted Height (Feet): 5 Height (Inches): 4.00 Weight (Pounds): 160 Medications Current Medications Medications (Trade) Dose Ordered Sig/Kannan Route PRN Reason Start Time Stop Time Status Last Admin Dose Admin Acetaminophen (Tylenol) 650 mg Q4H PRN ORAL fever 11/12/18 22:30 12/12/18 22:29 Albuterol/ Ipratropium (Albuterol/ Ipratropium) 3 ml EVERY 4 HOURS PRN HHN Shortness of Breath 11/12/18 22:30 11/17/18 22:29 Carvedilol (Coreg) 3.125 mg EVERY 12 HOURS ORAL 11/12/18 23:00 12/12/18 22:59 11/13/18 09:33 Cefepime HCl 2 gm/ Dextrose 110 ml @ 220 mls/hr Q24H IV 11/13/18 09:00 11/20/18 08:59 11/13/18 09:32 Clopidogrel Bisulfate (Plavix) 75 mg DAILY ORAL 11/13/18 09:00 12/13/18 08:59 11/13/18 09:33 Dextrose (Dextrose 50%) STAT PRN IV Hypoglycemia 11/12/18 22:30 12/12/18 22:29 Gabapentin (Neurontin) 300 mg BEDTIME ORAL 11/12/18 23:00 12/12/18 22:59 Heparin Sodium (Porcine) (Heparin 5000 units/ml) 5,000 units EVERY 12 HOURS SUBQ 11/13/18 09:00 12/13/18 08:59 11/13/18 09:39 Insulin Aspart (NovoLOG) BEFORE MEALS AND HS SUBQ 11/13/18 06:30 12/13/18 06:29 11/13/18 12:01 Iopamidol (Isovue-300 100ml) 100 ml NOW PRN INJ Radiology Procedure 11/12/18 19:00 Morphine Sulfate (Morphine Sulfate) 2 mg Q4H PRN IVP Moderate Pain (Pain Scale 4-6) 11/12/18 22:30 11/19/18 22:29 Nitroglycerin (Ntg) 0.4 mg Q5M PRN SL Prn Chest Pain 11/12/18 22:30 12/12/18 22:29 Olanzapine (ZyPREXA) 2.5 mg BID ORAL 11/13/18 09:00 12/13/18 08:59 11/13/18 09:33 Ondansetron HCl (Zofran) 4 mg Q6H PRN IVP Nausea & Vomiting 11/12/18 22:30 12/12/18 22:29 Polyethylene Glycol (Miralax) 17 gm DAILYPRN PRN ORAL Constipation 11/12/18 22:30 12/12/18 22:29 Temazepam (Restoril) 15 mg HSPRN PRN ORAL Insomnia 11/12/18 22:30 11/19/18 22:29 Vancomycin HCl (Vanco rx to dose) 1 ea DAILY PRN MISC PER RX PROTOCOL 11/13/18 07:30 12/13/18 07:29 Vancomycin HCl 1 gm/Dextrose 275 ml @ 183.3 mls/ hr Q24H IVPB 11/13/18 09:00 11/18/18 08:59 11/13/18 09:33 Assessment/Plan Problem List: (1) Urinary tract infection ICD Codes: N39.0 - Urinary tract infection, site not specified SNOMED: 19635324 (2) Hydronephrosis ICD Codes: N13.30 - Unspecified hydronephrosis SNOMED: 84128185 (3) Umbilical hernia ICD Codes: K42.9 - Umbilical hernia without obstruction or gangrene SNOMED: 909880352 (4) Partial small bowel obstruction Assessment & Plan: 83-year-old female who presented with generalized weakness and feeling unwell. On further work-up was identified to have a ventral hernia with bowel contents. Patient without obstructive symptoms. No nausea vomiting fever or chills. Labs okay. Examination benign with soft abdomen that is nontender nondistended and positive bowel sounds. Hernia cannot be palpated and potentially reduced already but cannot identify fascial defect given the amount of adipose tissue. Patient states that last bowel movement was yesterday and has not had one today. States she is able to tolerate oral diet. No acute surgical intervention planned. Okay for trial oral diet. Ambulate and out of bed. Rx as written. We will follow with serial abdominal exams. Joni THOMAS. Thank you for this consultation we will follow with recommendations ICD Codes: K56.600 - Partial intestinal obstruction, unspecified as to cause SNOMED: 991780718 (5) Generalized weakness ICD Codes: R53.1 - Weakness SNOMED: 73338570 (6) Acute metabolic encephalopathy ICD Codes: G93.41 - Metabolic encephalopathy SNOMED: 76145086, 301839428 (7) Diabetes mellitus ICD Codes: E11.9 - Type 2 diabetes mellitus without complications SNOMED: 28735983 (8) Hypertension, uncontrolled ICD Codes: I10 - Essential (primary) hypertension SNOMED: 54819951 (9) Hypercholesterolemia ICD Codes: E78.0 - Pure hypercholesterolemia SNOMED: 25545228 (10) Alcohol dependence ICD Codes: F10.20 - Alcohol dependence, uncomplicated SNOMED: 42011680, 826079426 (11) Incontinence ICD Codes: R32 - Unspecified urinary incontinence SNOMED: 56760662 Joseph Hare Nov 13, 2018 13:12
--- NOTE | 2018-11-13 13:30 | NUR ---
NURSE NOTES: Patient pulled out IV, New 22 gauge IV inserted on left wrist. Site is Patent, no bleeding or infiltration noted.
--- NOTE | 2018-11-13 13:42 | History & Physical ---
History and Physical History & Physicial Dictated for Int Med-Dr Mckeon no. [id number]. Rhys Yousif MD Nov 13, 2018 13:42
--- NOTE | 2018-11-13 14:02 | Consultation ---
History of Present Illness General Date patient seen: Nov 13, 2018 Chief Complaint: Generalized Weakness Reason for Consultation: UTI Present Illness HPI Patient is a 73-year-old female with hx of CAD, HTN, DM brought in by EMS with CC of generalized weakness, body aches. Patient states that she had been having some pain to her upper back. She reports having moderate pain to multiple locations. She was found to have UTI and also possibly SBO. Allergies: Coded Allergies: NO KNOWN DRUG ALLERGIES (Verified Allergy, Unknown, 06/09/17) Medication History Scheduled Aspirin* (Aspirin*), 81 MG ORAL DAILY, (Reported) Atorvastatin (Lipitor), 80 MG ORAL BEDTIME, (Reported) Carvedilol* (Carvedilol*), 3.125 MG ORAL EVERY 12 HOURS, (Reported) Clopidogrel Bisulfate* (Plavix*), 75 MG ORAL DAILY, (Reported) Gabapentin* (Gabapentin*), 300 MG ORAL BEDTIME, (Reported) Lisinopril* (Lisinopril*), 2.5 MG ORAL DAILY, (Reported) Metformin Hcl* (Metformin Hcl*), 500 MG ORAL TWICE A DAY, (Reported) Naproxen (Naproxen), 500 MG PO TWICE A DAY, (Reported) Olanzapine (Olanzapine), 2.5 MG ORAL BID Ranitidine Hcl* (Zantac*), 150 MG ORAL TWICE A DAY, (Reported) Scheduled PRN Ibuprofen* (Motrin*), 400 MG ORAL Q6H PRN for For Pain, (Reported) Miscellaneous Medications Fluocinonide/Emollient (Fluocinonide-E 0.05% Cream), 15 GM TP, (Reported) Patient History Healthcare decision maker N Resuscitation status Advanced Directive on File Past Medical/Surgical History Past Medical/Surgical History: (1) Diabetes mellitus (2) Umbilical hernia (3) Hypertension, uncontrolled Review of Systems All Other Systems: negative except mentioned in HPI Physical Exam General Appearance: WD/WN Lines, tubes and drains: peripheral HEENT: normocephalic, atraumatic Neck: non-tender, normal alignment Respiratory/Chest: chest wall non-tender, lungs clear Breasts: no masses Cardiovascular/Chest: normal peripheral pulses Abdomen: normal bowel sounds, non tender Genitourinary/Rectal: normal genital exam, normal rectal exam Extremities: normal range of motion, non-tender Neurologic: cork mixer II-XII grossly normal Last 24 Hour Vital Signs Date Time Temp Pulse Resp B/P (MAP) Pulse Ox O2 Delivery O2 Flow Rate FiO2 11/13/18 12:00 64 11/13/18 12:00 98.0 65 18 128/52 (77) 98 11/13/18 09:33 66 127/63 11/13/18 08:00 65 11/13/18 08:00 98.2 66 18 127/63 (84) 99 11/13/18 04:05 62 11/13/18 03:54 98.3 66 18 119/71 (87) 98 11/13/18 00:18 Room Air 11/13/18 00:07 69 11/13/18 00:05 97.5 71 18 123/58 (79) 97 11/12/18 23:00 80 109/54 11/12/18 22:30 Room Air 11/12/18 22:00 97.5 81 18 109/54 (72) 97 11/12/18 22:00 86 11/12/18 21:50 97.8 68 18 142/82 96 Room Air 11/12/18 19:39 98.4 82 16 132/80 97 Room Air 11/12/18 17:20 98.6 85 20 136/77 96 Room Air 11/12/18 17:20 85 17 Room Air 11/12/18 16:59 98.6 114 20 147/85 (105) 97 Room Air Intake and Output 11/12/18 11/13/18 19:00 07:00 Intake Total 0 ml Balance 0 ml Intake Oral 0 ml # Voids 2 # Bowel Movements 2 Laboratory Tests Test 11/12/18 17:35 11/12/18 18:00 11/13/18 06:05 White Blood Count 9.1 K/UL (4.8-10.8) 9.4 K/UL (4.8-10.8) Red Blood Count 3.35 M/UL (4.20-5.40) L 3.25 M/UL (4.20-5.40) L Hemoglobin 10.1 G/DL (12.0-16.0) L 9.9 G/DL (12.0-16.0) L Hematocrit 28.5 % (37.0-47.0) L 28.7 % (37.0-47.0) L Mean Corpuscular Volume 85 FL (80-99) 88 FL (80-99) Mean Corpuscular Hemoglobin 30.0 PG (27.0-31.0) 30.5 PG (27.0-31.0) Mean Corpuscular Hemoglobin Concent 35.3 G/DL (32.0-36.0) 34.5 G/DL (32.0-36.0) Red Cell Distribution Width 12.1 % (11.6-14.8) 12.4 % (11.6-14.8) Platelet Count 161 K/UL (150-450) 189 K/UL (150-450) Mean Platelet Volume 6.1 FL (6.5-10.1) L 7.5 FL (6.5-10.1) Neutrophils (%) (Auto) % (45.0-75.0) 64.5 % (45.0-75.0) Lymphocytes (%) (Auto) % (20.0-45.0) 22.4 % (20.0-45.0) Monocytes (%) (Auto) % (1.0-10.0) 11.6 % (1.0-10.0) H Eosinophils (%) (Auto) % (0.0-3.0) 0.9 % (0.0-3.0) Basophils (%) (Auto) % (0.0-2.0) 0.6 % (0.0-2.0) Differential Total Cells Counted 100 Neutrophils % (Manual) 79 % (45-75) H Lymphocytes % (Manual) 8 % (20-45) L Monocytes % (Manual) 4 % (1-10) Eosinophils % (Manual) 0 % (0-3) Basophils % (Manual) 0 % (0-2) Band Neutrophils 9 % (0-8) H Platelet Estimate Adequate Platelet Morphology Normal Red Blood Cell Morphology Normal Sodium Level 139 MMOL/L (136-145) 140 MMOL/L (136-145) Potassium Level 3.8 MMOL/L (3.5-5.1) 3.9 MMOL/L (3.5-5.1) Chloride Level 105 MMOL/L (98-107) 107 MMOL/L (98-107) Carbon Dioxide Level 21 MMOL/L (21-32) 24 MMOL/L (21-32) Anion Gap 13 mmol/L (5-15) 10 mmol/L (5-15) Blood Urea Nitrogen 28 mg/dL (7-18) H 24 mg/dL (7-18) H Creatinine 1.1 MG/DL (0.55-1.30) 1.0 MG/DL (0.55-1.30) Estimat Glomerular Filtration Rate mL/min (>60) mL/min (>60) Glucose Level 198 MG/DL (74-106) H 125 MG/DL (74-106) H Lactic Acid Level 1.90 mmol/L (0.4-2.0) Calcium Level 8.4 MG/DL (8.5-10.1) L 8.4 MG/DL (8.5-10.1) L Phosphorus Level 2.5 MG/DL (2.5-4.9) Magnesium Level 1.7 MG/DL (1.8-2.4) L Total Bilirubin 0.4 MG/DL (0.2-1.0) 0.2 MG/DL (0.2-1.0) Aspartate Amino Transf (AST/SGOT) 17 U/L (15-37) 18 U/L (15-37) Alanine Aminotransferase (ALT/SGPT) 14 U/L (12-78) 19 U/L (12-78) Alkaline Phosphatase 122 U/L (46-116) H 110 U/L (46-116) Total Creatine Kinase 48 U/L (26-308) Creatine Kinase MB 1.0 NG/ML (0.0-3.6) Creatine Kinase MB Relative Index 2.0 Troponin I 0.002 ng/mL (0.000-0.056) Total Protein 7.1 G/DL (6.4-8.2) 6.8 G/DL (6.4-8.2) Albumin 3.2 G/DL (3.4-5.0) L 3.0 G/DL (3.4-5.0) L Globulin 3.9 g/dL 3.8 g/dL Albumin/Globulin Ratio 0.8 (1.0-2.7) L 0.8 (1.0-2.7) L Serum Alcohol < 3 mg/dL Urine Color Yellow Urine Appearance Cloudy Urine pH 5 (4.5-8.0) Urine Specific [place] 1.010 (1.005-1.035) Urine Protein 3+ (NEGATIVE) H Urine Glucose (UA) Negative (NEGATIVE) Urine Ketones Negative (NEGATIVE) Urine Blood 4+ (NEGATIVE) H Urine Nitrite Negative (NEGATIVE) Urine Bilirubin Negative (NEGATIVE) Urine Urobilinogen 1 MG/DL (0.0-1.0) H Urine Leukocyte Esterase 3+ (NEGATIVE) H Urine RBC 5-10 /HPF (0 - 2) H Urine WBC 5-10 /HPF (0 - 2) H Urine Squamous Epithelial Cells Occasional /LPF Urine Bacteria Many /HPF (NONE) H Microbiology Date/Time Source Procedure Growth Status 11/12/18 18:00 Urine,Clean Catch Urine Culture - Preliminary Gram Negative Vik Resulted Height (Feet): 5 Height (Inches): 4.00 Weight (Pounds): 160 Medications Current Medications Medications (Trade) Dose Ordered Sig/Kannan Route PRN Reason Start Time Stop Time Status Last Admin Dose Admin Acetaminophen (Tylenol) 650 mg Q4H PRN ORAL fever 11/12/18 22:30 12/12/18 22:29 Albuterol/ Ipratropium (Albuterol/ Ipratropium) 3 ml EVERY 4 HOURS PRN HHN Shortness of Breath 11/12/18 22:30 11/17/18 22:29 Carvedilol (Coreg) 3.125 mg EVERY 12 HOURS ORAL 11/12/18 23:00 12/12/18 22:59 11/13/18 09:33 Cefepime HCl 2 gm/ Dextrose 110 ml @ 220 mls/hr Q24H IV 11/13/18 09:00 11/20/18 08:59 11/13/18 09:32 Clopidogrel Bisulfate (Plavix) 75 mg DAILY ORAL 11/13/18 09:00 12/13/18 08:59 11/13/18 09:33 Dextrose (Dextrose 50%) STAT PRN IV Hypoglycemia 11/12/18 22:30 12/12/18 22:29 Gabapentin (Neurontin) 300 mg BEDTIME ORAL 11/12/18 23:00 12/12/18 22:59 Heparin Sodium (Porcine) (Heparin 5000 units/ml) 5,000 units EVERY 12 HOURS SUBQ 11/13/18 09:00 12/13/18 08:59 11/13/18 09:39 Insulin Aspart (NovoLOG) BEFORE MEALS AND HS SUBQ 11/13/18 06:30 12/13/18 06:29 11/13/18 12:01 Iopamidol (Isovue-300 100ml) 100 ml NOW PRN INJ Radiology Procedure 11/12/18 19:00 Morphine Sulfate (Morphine Sulfate) 2 mg Q4H PRN IVP Moderate Pain (Pain Scale 4-6) 11/12/18 22:30 11/19/18 22:29 Nitroglycerin (Ntg) 0.4 mg Q5M PRN SL Prn Chest Pain 11/12/18 22:30 12/12/18 22:29 Olanzapine (ZyPREXA) 2.5 mg BID ORAL 11/13/18 09:00 12/13/18 08:59 11/13/18 09:33 Ondansetron HCl (Zofran) 4 mg Q6H PRN IVP Nausea & Vomiting 11/12/18 22:30 12/12/18 22:29 Polyethylene Glycol (Miralax) 17 gm DAILYPRN PRN ORAL Constipation 11/12/18 22:30 12/12/18 22:29 Temazepam (Restoril) 15 mg HSPRN PRN ORAL Insomnia 11/12/18 22:30 11/19/18 22:29 Vancomycin HCl (Vanco rx to dose) 1 ea DAILY PRN MISC PER RX PROTOCOL 11/13/18 07:30 12/13/18 07:29 Vancomycin HCl 1 gm/Dextrose 275 ml @ 183.3 mls/ hr Q24H IVPB 11/13/18 09:00 11/18/18 08:59 11/13/18 09:33 Assessment/Plan Problem List: (1) Acute metabolic encephalopathy ICD Codes: G93.41 - Metabolic encephalopathy SNOMED: 62438511, 714492638 (2) Urinary tract infection ICD Codes: N39.0 - Urinary tract infection, site not specified SNOMED: 31562683 (3) Hydronephrosis ICD Codes: N13.30 - Unspecified hydronephrosis SNOMED: 20247320 (4) Umbilical hernia ICD Codes: K42.9 - Umbilical hernia without obstruction or gangrene SNOMED: 695765448 (5) Diabetes mellitus ICD Codes: E11.9 - Type 2 diabetes mellitus without complications SNOMED: 20605053 Assessment/Plan: NPO GI/surgery evaluation wells cultures iv abx iv fluids check electrolytes sliding scale pt/ot Oscar Quezada MD Nov 13, 2018 14:02
--- NOTE | 2018-11-13 15:45 | History and Physical Report ---
DATE OF ADMISSION: 11/13/2018 CHIEF COMPLAINT: The patient is a 73-year-old female, who presents with a chief complaint of generalized weakness and dizziness. HISTORY OF PRESENT ILLNESS: The patient was admitted to [facility] in July of 2018. The patient was admitted for vaginal bleeding and severe anemia. The patient underwent removal of the pessary and foreign object from her vagina at that time. The patient received blood during that hospitalization. The patient states she began to experience generalized weakness and dizziness a few days ago. This is increased over the last two days. The patient presented to [facility] emergency room. The patient was admitted with generalized weakness to rule out anemia. PAST MEDICAL HISTORY: Significant for: 1. Diabetes type 2. 2. Hypertension 3. Hypercholesterolemia. 4. Severe anemia as above. 5. History of alcohol dependence. PAST SURGICAL HISTORY: Significant for removal of pessary and foreign object as above. CURRENT MEDICATIONS: 1. Aspirin 81 mg one tablet p.o. daily. 2. Atorvastatin 80 mg p.o. daily. 3. Carvedilol 3.125 mg p.o. twice daily. 4. Plavix 75 mg p.o. daily. 5. Gabapentin 300 mg p.o. at bedtime. 6. Ibuprofen 600 mg p.o. q.6 hours p.r.n. 7. Lisinopril 2.5 mg p.o. daily. 8. Metformin 500 mg p.o. twice daily. 9. Naproxen 250 mg 2 tablets p.o. twice daily. 10. Zyprexa 2.5 mg p.o. twice daily. 11. Zantac 150 mg p.o. twice daily. ALLERGIES: No known drug allergies. SOCIAL HISTORY: The patient lives with her adult daughters. The patient denies tobacco use having quit during the July 2018 as stated above. The patient denies alcohol use. REVIEW OF SYSTEMS: CONSTITUTIONAL: The patient denies weight loss or weight gain. The patient denies fevers or chills. HEENT: The patient denies ear or throat pain. The patient denies headache. CARDIOVASCULAR: The patient denies palpitations or chest pain. CHEST: The patient denies wheeze or shortness of breath. ABDOMINAL: The patient denies nausea, vomiting, diarrhea, or constipation. GENITOURINARY: The patient denies dysuria or increased frequency of urination. NEUROMUSCULAR: The patient denies seizures. The patient does complain of generalized weakness as above. The patient complains of vertigo as above. PHYSICAL EXAMINATION: VITAL SIGNS: Temperature 98.6, respirations 20, pulse 114, and blood pressure 147/85. GENERAL: The patient is a well-developed and well-nourished female, in no apparent distress. HEENT: Eyes, pupils are equal and responsive to light and accommodation. Extraocular movements are intact. NECK: Supple without lymphadenopathy. CHEST: Lungs are clear to auscultation bilaterally without wheezes or rales. CARDIOVASCULAR: Tachycardic, regular rhythm. S1 and S2 are normal without murmurs, rubs, or gallops. ABDOMEN: Soft, nontender, and nondistended. Positive bowel sounds. No evidence of hepatosplenomegaly. Currently, no rebound or guarding noted. EXTREMITIES: Negative for clubbing, cyanosis, or edema. RECTAL/GENITAL: Refused. NEUROLOGIC: Cranial nerves II through XII are grossly intact without focal deficits. Motor strength is 5/5 bilaterally. Deep tendon reflexes are 2+ plantar. LABORATORY STUDIES: WBC 9.1, hemoglobin 10.1, hematocrit 28.5, and platelets 161,000. Sodium 139, potassium 3.8, chloride 105, CO2 21, BUN 28, creatinine 1.1, and glucose 198. Troponin 0.002. A CT scan of the abdomen revealed umbilical hernia with loops of small bowel within the hernia consistent with small bowel obstruction. A chest x-ray is reported as no acute disease. ASSESSMENT: This is a 73-year-old female. 1. Small bowel obstruction. 2. Generalized weakness. 3. Vertigo. 4. Diabetes type 2. 5. Hypertension. 6. Hypercholesterolemia. 7. Anemia. 8. History of alcohol dependence. TREATMENT: 1. Small bowel obstruction. A Surgery consultation has been obtained with Dr. Hare. We will follow recommendations of Surgery. 2. Generalized weakness/vertigo. This may be secondary to diabetes versus acute stroke. A CT scan of the brain is pending. 3. Diabetes type 2. A NovoLog sliding scale has been instituted. 4. Hypertension. Continue lisinopril as above. 5. Hypercholesterolemia. Continue atorvastatin as above. 6. Alcohol dependence/withdrawal. 7. Severe anemia. This was secondary to pessary versus foreign object in the vagina. The patient's current hemoglobin and hematocrit are stable. Rhys Yousif M.D. DR: JEANNETTE JOB#: [id number] CC:
--- NOTE | 2018-11-13 15:55 | NUR ---
NURSE NOTES: Patient transferred to [facility] [id number] and report given to Megan/RN, Patient is in stable condition, no sign of distress/SOB noted. IV intact, No bleeding or infiltration. Heart Monitor removed, Patient denies any pain at this time. Endorsed plan of care.
[2018-11-13] MEDS ORDERED: Nitroglycerin Subl 0.4mg tab SL PRN (16:15)
--- NOTE | 2018-11-13 16:15 | NUR ---
NURSE NOTES: Patient transferred from [facility], arrived the floor by bed and accompanied by RN, Anna and nursing technician. Vitals taken upon arrival to the unit. Patient awake and alert x3, Macedonian speaking. IV Left-Wrist flushes well; patient had skin rashes on both buttocks; belonging list signed by transferring and receiving nurse; patient doesn't have any belongings. I received anti-biotics bags and insulin pen. side rails up x2, breaks engaged, bed at lowest position, bed alarm on. call light within reach; will keep monitoring.
[2018-11-13] MEDS ORDERED: Miralax 17gm pkt ORAL PRN (16:30)
[2018-11-13] MEDS ORDERED: Albuterol/Ipratropium 3ml neb HHN PRN (17:00)
[2018-11-13] MEDS: OLANZapine 2.5mg tab ORAL SCH (17:11)
[2018-11-13] MEDS ORDERED: Isovue-300 100ml vial INJ PRN (19:00)
--- NOTE | 2018-11-13 19:38 | NUR ---
HAND-OFF: Report given to MARYANNE Mahoney.
[2018-11-13] MEDS: Heparin 5000 units/ml inj SUBQ SCH (21:09)
[2018-11-14] VITALS: BP 116/72
--- NOTE | 2018-11-14 00:44 | NUR ---
AWAKE,ALERT,VIETNAMESE SPEAKING.DUE MEDS.GIVEN,COMPLIANT.WANTS TO SIT AT EDGE OF BED,BED ALARM ON.REMAINED ASLEEP BUT WAKES UP AT TIMES.REORIENTATION DONE.
[2018-11-14 04:00] VITALS: BP 134/65
[2018-11-14] MEDS: NovoLOG Insulin Flexpen SUBQ SCH ×4 (06:30→20:38)
--- NOTE | 2018-11-14 07:33 | NUR ---
HAND-OFF: Report given to MARYANNE MELGAR.
--- NOTE | 2018-11-14 07:59 | NUR ---
NURSE NOTES: HANDOFF RECEIVED FROM MARYANNE HIDALGO. PATIENT OBSERVED SLEEPING, BED IN LOCKED LOWEST POSITION AND CALL LIGHT WITHIN REACH.
[2018-11-14 08:00] VITALS: BP 142/67
[2018-11-14 08:27] LABS: HEMATOCRIT 26.7 % (37.0-47.0); MEAN CORPUSCULAR VOLUME 89 FL (80-99); PLATELET COUNT 180 K/UL (150-450); RED BLOOD COUNT 2.99 M/UL (4.20-5.40); RED CELL DISTRIBUTION WIDTH 12.7 % (11.6-14.8); WHITE BLOOD COUNT 5.3 K/UL (4.8-10.8)
[2018-11-14 08:41] LABS: LACTATE DEHYDROGENASE 146 U/L (81-234)
[2018-11-14 08:42] LABS: ANION GAP 9 mmol/L (5-15); BLOOD UREA NITROGEN 35 mg/dL (7-18); CALCIUM 8.4 MG/DL (8.5-10.1); CARBON DIOXIDE 24 MMOL/L (21-32); CHLORIDE 109 MMOL/L (98-107); CREATININE 1.3 MG/DL (0.55-1.30); POTASSIUM 3.8 MMOL/L (3.5-5.1); SODIUM 142 MMOL/L (136-145)
[2018-11-14] MEDS ORDERED: Cefepime HCl 2 GM in D5W 110 ML IV SCH (09:00)
[2018-11-14] MEDS: OLANZapine 2.5mg tab ORAL SCH ×2 (09:11→17:53)
[2018-11-14] MEDS: Heparin 5000 units/ml inj SUBQ SCH ×2 (09:14→20:39)
[2018-11-14 09:21] LABS: % IRON SATURATION 14 % (15-50); IRON 33 ug/dL (50-175); TOTAL IRON BINDING CAPACITY 242 ug/dL (250-450)
--- NOTE | 2018-11-14 09:39 | NUR ---
CERAMIC MOLD DESIGNERRENEWABLE ENERGY CONSULTANT SI:ACUTE METABOLIC ENCEPHALOPATHY . UTI VS: BP 142/67, P 93, T 97.4, RR 18, SpO2 98 RBC 2.99, H&H 9.0/26.7, BUN 35 IS:CEFEPIME 110ml IV HEPARIN SUBQ COREG 3.125mg ZYPREXA 2.5mg NOVOLOG SUBQ GABAPENTIN 300mg MED/SURG STATUS
--- NOTE | 2018-11-14 11:09 | NUR ---
Concerning MRI..pt can not stay still for exam, too restless inside scanner. MARYANNE Mckeon has been informed. [email or web address] 11:00
[2018-11-14] MEDS: Vancomycin 1 GM in D5W 275 ML IVPB SCH (11:43)
[2018-11-14 12:00] VITALS: BP 148/69
--- NOTE | 2018-11-14 13:01 | Pulmonology Progress Note ---
Assessment/Plan Problems: (1) Acute metabolic encephalopathy (2) Urinary tract infection (3) Hydronephrosis (4) Umbilical hernia (5) Diabetes mellitus Assessment/Plan GI/surgery evaluation appreciated wells cultures, still pending iv abx iv fluids check electrolytes sliding scale pt/ot Subjective ROS Limited/Unobtainable: No Interval Events: eating well Constitutional: Reports: no symptoms Allergies: Coded Allergies: NO KNOWN DRUG ALLERGIES (Verified Allergy, Unknown, 06/09/17) Objective Last 24 Hour Vital Signs Date Time Temp Pulse Resp B/P (MAP) Pulse Ox O2 Delivery O2 Flow Rate FiO2 11/14/18 12:29 Room Air 11/14/18 12:00 97.7 69 18 148/69 (95) 96 11/14/18 09:11 73 142/67 11/14/18 09:00 Room Air 11/14/18 08:00 97.8 18 142/67 (92) 100 11/14/18 07:00 97 Room Air 21 11/14/18 04:00 97.4 73 18 134/65 (88) 98 11/14/18 00:00 97.4 93 18 116/72 (87) 98 11/13/18 21:04 69 130/86 11/13/18 21:00 Room Air 11/13/18 20:00 98.1 69 18 130/86 (101) 97 11/13/18 19:53 98 Room Air 21 11/13/18 16:30 98.6 68 19 135/57 (83) 98 11/13/18 16:00 97.6 69 18 110/79 (89) 99 Intake and Output 11/13/18 11/14/18 19:00 07:00 Intake Total 840 ml Balance 840 ml Intake Oral 840 ml # Voids 3 # Bowel Movements 1 1 General Appearance: WD/WN HEENT: normocephalic, atraumatic Respiratory/Chest: chest wall non-tender, lungs clear Breasts: no masses Cardiovascular: normal peripheral pulses, regular rhythm Abdomen: normal bowel sounds, no organomegaly Extremities: no cyanosis Skin: no lesions Microbiology Date/Time Source Procedure Growth Status 11/12/18 17:30 Nasal Nares Right MRSA Culture - Final NO METHICILLIN RESISTANT STAPH AUREUS... Complete 11/12/18 18:00 Urine,Clean Catch Urine Culture - Final Escherichia Coli - Esbl Complete 11/12/18 17:30 Rectum VRE Culture - Final NO VANCOMYCIN RESISTANT ENTEROCOCCUS ... Resulted 11/12/18 17:30 Rectum Pending Resulted Laboratory Tests 11/14/18 07:01: White Blood Count 5.3, Red Blood Count 2.99L, Hemoglobin 9.0L, Hematocrit 26.7L , Mean Corpuscular Volume 89, Mean Corpuscular Hemoglobin 30.1, Mean Corpuscular Hemoglobin Concent 33.7, Red Cell Distribution Width 12.7, Platelet Count 180, Mean Platelet Volume 7.3, Neutrophils (%) (Auto) , Lymphocytes (%) ( Auto) , Monocytes (%) (Auto) , Eosinophils (%) (Auto) , Basophils (%) (Auto) , Differential Total Cells Counted 100, Neutrophils % (Manual) 44L, Lymphocytes % (Manual) 35, Monocytes % (Manual) 15H, Eosinophils % (Manual) 6H, Basophils % ( Manual) 0, Band Neutrophils 0, Platelet Estimate Adequate, Platelet Morphology Normal, Anisocytosis 1+, Erythrocyte Sedimentation Rate 71H, Reticulocyte Count 1.2, Prothrombin Time 10.2, Prothromb Time International Ratio 1.0, Activated Partial Thromboplast Time 25, Sodium Level 142, Potassium Level 3.8, Chloride Level 109H, Carbon Dioxide Level 24, Anion Gap 9, Blood Urea Nitrogen 35H, Creatinine 1.3, Estimat Glomerular Filtration Rate , Glucose Level 125H, Calcium Level 8.4L, Iron Level 33L, Total Iron Binding Capacity 242L, Percent Iron Saturation 14L, Unsaturated Iron Binding 209, Lactate Dehydrogenase 146, Carcinoembryonic Antigen [Pending], Vitamin B12 Level 656, Folate 30.6 Current Medications Medications (Trade) Dose Ordered Sig/Kannan Route PRN Reason Start Time Stop Time Status Last Admin Dose Admin Acetaminophen (Tylenol) 650 mg Q4H PRN ORAL fever 11/13/18 16:30 12/12/18 16:29 Albuterol/ Ipratropium (Albuterol/ Ipratropium) 3 ml Q4H PRN HHN Shortness of Breath 11/13/18 17:00 11/18/18 16:59 Carvedilol (Coreg) 3.125 mg EVERY 12 HOURS ORAL 11/13/18 21:00 12/12/18 22:59 11/14/18 09:11 Clopidogrel Bisulfate (Plavix) 75 mg DAILY ORAL 11/14/18 09:00 12/13/18 08:59 11/14/18 09:11 Dextrose (Dextrose 50%) 25 ml Q30M PRN IV Hypoglycemia 11/13/18 16:30 12/13/18 16:29 Dextrose (Dextrose 50%) 50 ml Q30M PRN IV Hypoglycemia 11/13/18 16:30 12/13/18 16:29 Gabapentin (Neurontin) 300 mg BEDTIME ORAL 11/13/18 21:00 12/12/18 22:59 11/13/18 21:05 Heparin Sodium (Porcine) (Heparin 5000 units/ml) 5,000 units EVERY 12 HOURS SUBQ 11/13/18 21:00 12/13/18 08:59 11/14/18 09:14 Insulin Aspart (NovoLOG) BEFORE MEALS AND HS SUBQ 11/13/18 16:30 12/13/18 06:29 11/14/18 06:30 Morphine Sulfate (Morphine Sulfate) 2 mg Q4H PRN IVP Moderate Pain (Pain Scale 4-6) 11/13/18 16:30 11/19/18 16:29 Nitroglycerin (Ntg) 0.4 mg Q5M PRN SL Prn Chest Pain 11/13/18 16:15 12/12/18 22:29 Olanzapine (ZyPREXA) 2.5 mg BID ORAL 11/13/18 18:00 12/13/18 08:59 11/14/18 09:11 Ondansetron HCl (Zofran) 4 mg Q6H PRN IVP Nausea & Vomiting 11/13/18 16:30 12/12/18 22:29 Piperacillin Sod/ Tazobactam Sod 3.375 gm/Sodium Chloride 110 ml @ 27.5 mls/hr EVERY 8 HOURS IVPB 11/14/18 12:00 11/19/18 11:59 Polyethylene Glycol (Miralax) 17 gm DAILYPRN PRN ORAL Constipation 11/13/18 16:30 12/12/18 16:29 Temazepam (Restoril) 15 mg HSPRN PRN ORAL Insomnia 11/13/18 21:00 11/19/18 20:59 Vancomycin HCl (Vanco rx to dose) 1 ea DAILY PRN MISC PER RX PROTOCOL 11/14/18 09:00 12/13/18 07:29 Vancomycin HCl 1 gm/Dextrose 275 ml @ 183.3 mls/ hr Q24H IVPB 11/14/18 09:00 11/18/18 08:59 11/14/18 11:43 Oscar Quezada MD Nov 14, 2018 13:01
--- NOTE | 2018-11-14 13:33 | Infectious Diseases Prog Note ---
Assessment/Plan Assessment/Plan Assessment/Plan: 73 yo female with PMHx of HTN and DM who presented ot the ED on 11/12/18 with one day of weakness. UTI UCx 11/12/18- esbl e.COLI (s zOSYN, tigecycline, ertap) No Fever No leukcoytosis Periumbilical hernia, probable early/ partial SBO A CT scan (11/12/18) of the abd showed early or partal SBO along with periumbilical hernia. The patient how ever has been tolerating PO diet. Afebrile no leukocytosis HTN DM PLAN: - Contiue Zosyn #/ for eSBL UTI (sensitive to it) -D/c empiric IV vancomycin #1 -11/14 SP Cefepime #2 - 11/13/18 SP Flagyl #1 - f/u urine Cx - Monitor CBC and Temps Thank you for this consult. We will continue to follow the patient during this hospitalization. Subjective Allergies: Coded Allergies: NO KNOWN DRUG ALLERGIES (Verified Allergy, Unknown, 06/09/17) Subjective afebrile no leukocytosis Objective Vital Signs Last 24 Hour Vital Signs Date Time Temp Pulse Resp B/P (MAP) Pulse Ox O2 Delivery O2 Flow Rate FiO2 11/14/18 12:29 Room Air 11/14/18 12:00 97.7 69 18 148/69 (95) 96 11/14/18 09:11 73 142/67 11/14/18 09:00 Room Air 11/14/18 08:00 97.8 18 142/67 (92) 100 11/14/18 07:00 97 Room Air 11/14/18 04:00 97.4 73 18 134/65 (88) 98 11/14/18 00:00 97.4 93 18 116/72 (87) 98 11/13/18 21:04 69 130/86 11/13/18 21:00 Room Air 11/13/18 20:00 98.1 69 18 130/86 (101) 97 11/13/18 19:53 98 Room Air 21 11/13/18 16:30 98.6 68 19 135/57 (83) 98 11/13/18 16:00 97.6 69 18 110/79 (89) 99 Height (Feet): 5 Height (Inches): 4.00 Weight (Pounds): 160 Objective Gen: NAD HEENT: NCAT, MMM, EOMI, PERRL, No Oral lesion, no scleral icterus NECK: full range of motion, supple, no meningismus, No LAD, No JVD LUNGS: CTAB, No W/C, No Accessory muscle use CARDS: RRR, S1, S2, No M/R/G, ABD: Soft, NT, ND, No R/G, + BS, No HSM, No Masses : Deferred Ext: C/C/E, Pulses 2+ B/L (DP, Rad): NEURO: A/O x 4, Strength and Sensation Grossly intact PSYCH: Normal mood and affect SKIN: Warm/dry, No rashes Microbiology Date/Time Source Procedure Growth Status 11/12/18 17:30 Nasal Nares Right MRSA Culture - Final NO METHICILLIN RESISTANT STAPH AUREUS... Complete 11/12/18 18:00 Urine,Clean Catch Urine Culture - Final Escherichia Coli - Esbl Complete 11/12/18 17:30 Rectum VRE Culture - Final NO VANCOMYCIN RESISTANT ENTEROCOCCUS ... Resulted 11/12/18 17:30 Rectum Pending Resulted Laboratory Tests Test 11/14/18 07:01 White Blood Count 5.3 K/UL (4.8-10.8) Red Blood Count 2.99 M/UL (4.20-5.40) L Hemoglobin 9.0 G/DL (12.0-16.0) L Hematocrit 26.7 % (37.0-47.0) L Mean Corpuscular Volume 89 FL (80-99) Mean Corpuscular Hemoglobin 30.1 PG (27.0-31.0) Mean Corpuscular Hemoglobin Concent 33.7 G/DL (32.0-36.0) Red Cell Distribution Width 12.7 % (11.6-14.8) Platelet Count 180 K/UL (150-450) Mean Platelet Volume 7.3 FL (6.5-10.1) Neutrophils (%) (Auto) % (45.0-75.0) Lymphocytes (%) (Auto) % (20.0-45.0) Monocytes (%) (Auto) % (1.0-10.0) Eosinophils (%) (Auto) % (0.0-3.0) Basophils (%) (Auto) % (0.0-2.0) Differential Total Cells Counted 100 Neutrophils % (Manual) 44 % (45-75) L Lymphocytes % (Manual) 35 % (20-45) Monocytes % (Manual) 15 % (1-10) H Eosinophils % (Manual) 6 % (0-3) H Basophils % (Manual) 0 % (0-2) Band Neutrophils 0 % (0-8) Platelet Estimate Adequate Platelet Morphology Normal Anisocytosis 1+ Erythrocyte Sedimentation Rate 71 MM/HR (0-30) H Reticulocyte Count 1.2 % (0.5-2.0) Prothrombin Time 10.2 SEC (9.30-11.50) Prothromb Time International Ratio 1.0 (0.9-1.1) Activated Partial Thromboplast Time 25 SEC (23-33) Sodium Level 142 MMOL/L (136-145) Potassium Level 3.8 MMOL/L (3.5-5.1) Chloride Level 109 MMOL/L (98-107) H Carbon Dioxide Level 24 MMOL/L (21-32) Anion Gap 9 mmol/L (5-15) Blood Urea Nitrogen 35 mg/dL (7-18) H Creatinine 1.3 MG/DL (0.55-1.30) Estimat Glomerular Filtration Rate mL/min (>60) Glucose Level 125 MG/DL (74-106) H Calcium Level 8.4 MG/DL (8.5-10.1) L Iron Level 33 ug/dL (50-175) L Total Iron Binding Capacity 242 ug/dL (250-450) L Percent Iron Saturation 14 % (15-50) L Unsaturated Iron Binding 209 ug/dL (112-346) Lactate Dehydrogenase 146 U/L (81-234) Carcinoembryonic Antigen Pending Vitamin B12 Level 656 PG/ML (193-986) Folate 30.6 NG/ML (8.6-58.9) Current Medications Medications (Trade) Dose Ordered Sig/Kannan Route PRN Reason Start Time Stop Time Status Last Admin Dose Admin Acetaminophen (Tylenol) 650 mg Q4H PRN ORAL fever 11/13/18 16:30 12/12/18 16:29 Albuterol/ Ipratropium (Albuterol/ Ipratropium) 3 ml Q4H PRN HHN Shortness of Breath 11/13/18 17:00 11/18/18 16:59 Carvedilol (Coreg) 3.125 mg EVERY 12 HOURS ORAL 11/13/18 21:00 12/12/18 22:59 11/14/18 09:11 Clopidogrel Bisulfate (Plavix) 75 mg DAILY ORAL 11/14/18 09:00 12/13/18 08:59 11/14/18 09:11 Dextrose (Dextrose 50%) 25 ml Q30M PRN IV Hypoglycemia 11/13/18 16:30 12/13/18 16:29 Dextrose (Dextrose 50%) 50 ml Q30M PRN IV Hypoglycemia 11/13/18 16:30 12/13/18 16:29 Gabapentin (Neurontin) 300 mg BEDTIME ORAL 11/13/18 21:00 12/12/18 22:59 11/13/18 21:05 Heparin Sodium (Porcine) (Heparin 5000 units/ml) 5,000 units EVERY 12 HOURS SUBQ 11/13/18 21:00 12/13/18 08:59 11/14/18 09:14 Insulin Aspart (NovoLOG) BEFORE MEALS AND HS SUBQ 11/13/18 16:30 12/13/18 06:29 11/14/18 06:30 Morphine Sulfate (Morphine Sulfate) 2 mg Q4H PRN IVP Moderate Pain (Pain Scale 4-6) 11/13/18 16:30 11/19/18 16:29 Nitroglycerin (Ntg) 0.4 mg Q5M PRN SL Prn Chest Pain 11/13/18 16:15 12/12/18 22:29 Olanzapine (ZyPREXA) 2.5 mg BID ORAL 11/13/18 18:00 12/13/18 08:59 11/14/18 09:11 Ondansetron HCl (Zofran) 4 mg Q6H PRN IVP Nausea & Vomiting 11/13/18 16:30 12/12/18 22:29 Piperacillin Sod/ Tazobactam Sod 3.375 gm/Sodium Chloride 110 ml @ 27.5 mls/hr EVERY 8 HOURS IVPB 11/14/18 12:00 11/19/18 11:59 Polyethylene Glycol (Miralax) 17 gm DAILYPRN PRN ORAL Constipation 11/13/18 16:30 12/12/18 16:29 Temazepam (Restoril) 15 mg HSPRN PRN ORAL Insomnia 11/13/18 21:00 11/19/18 20:59 Vancomycin HCl (Vanco rx to dose) 1 ea DAILY PRN MISC PER RX PROTOCOL 11/14/18 09:00 12/13/18 07:29 Vancomycin HCl 1 gm/Dextrose 275 ml @ 183.3 mls/ hr Q24H IVPB 11/14/18 09:00 11/18/18 08:59 11/14/18 11:43 Myriam Mcgill M.D. Nov 14, 2018 13:32
--- NOTE | 2018-11-14 14:03 | Diagnostic Imaging Report ---
Indication: Abdominal pain Comparison: None Single view of the abdomen obtained Findings: Bowel gas pattern is nonspecific. No mass, ectopic calcifications, or abnormal gas collections are identified. The bones are unremarkable. Impression: No acute findings
--- NOTE | 2018-11-14 14:47 | NUR ---
RADIOLOGY DEPT., ABDOMEN X-RAY DONE.-P.DYE
[2018-11-14 16:00] VITALS: BP 117/69
[2018-11-14] MEDS: Zosyn 3.375gm q8h **Extended infusion IVPB SCH ×4 (16:03→23:17)
--- NOTE | 2018-11-14 16:48 | Surgery Progress Note ---
Surgery Progress Note Subjective Additional Comments afebrile,HD stable, tolerating diet. no pain. no complaints. exam stable. kub okay Objective Last 24 Hour Vital Signs Date Time Temp Pulse Resp B/P (MAP) Pulse Ox O2 Delivery O2 Flow Rate FiO2 11/14/18 12:29 Room Air 11/14/18 12:00 97.7 69 18 148/69 (95) 96 11/14/18 09:11 73 142/67 11/14/18 09:00 Room Air 11/14/18 08:00 97.8 18 142/67 (92) 100 11/14/18 07:00 97 Room Air 21 11/14/18 04:00 97.4 73 18 134/65 (88) 98 11/14/18 00:00 97.4 93 18 116/72 (87) 98 11/13/18 21:04 69 130/86 11/13/18 21:00 Room Air 11/13/18 20:00 98.1 69 18 130/86 (101) 97 11/13/18 19:53 98 Room Air 21 I&O Intake and Output 11/13/18 11/14/18 19:00 07:00 Intake Total 840 ml 120 ml Balance 840 ml 120 ml Intake Oral 840 ml 120 ml # Voids 3 # Bowel Movements 1 1 Cardiovascular: RSR Respiratory: clear Abdomen: soft, flat, non-tender, present bowel sounds, non-distended Extremities: no cyanosis Laboratory Tests Test 11/14/18 07:01 White Blood Count 5.3 K/UL (4.8-10.8) Red Blood Count 2.99 M/UL (4.20-5.40) L Hemoglobin 9.0 G/DL (12.0-16.0) L Hematocrit 26.7 % (37.0-47.0) L Mean Corpuscular Volume 89 FL (80-99) Mean Corpuscular Hemoglobin 30.1 PG (27.0-31.0) Mean Corpuscular Hemoglobin Concent 33.7 G/DL (32.0-36.0) Red Cell Distribution Width 12.7 % (11.6-14.8) Platelet Count 180 K/UL (150-450) Mean Platelet Volume 7.3 FL (6.5-10.1) Neutrophils (%) (Auto) % (45.0-75.0) Lymphocytes (%) (Auto) % (20.0-45.0) Monocytes (%) (Auto) % (1.0-10.0) Eosinophils (%) (Auto) % (0.0-3.0) Basophils (%) (Auto) % (0.0-2.0) Differential Total Cells Counted 100 Neutrophils % (Manual) 44 % (45-75) L Lymphocytes % (Manual) 35 % (20-45) Monocytes % (Manual) 15 % (1-10) H Eosinophils % (Manual) 6 % (0-3) H Basophils % (Manual) 0 % (0-2) Band Neutrophils 0 % (0-8) Platelet Estimate Adequate Platelet Morphology Normal Anisocytosis 1+ Erythrocyte Sedimentation Rate 71 MM/HR (0-30) H Reticulocyte Count 1.2 % (0.5-2.0) Prothrombin Time 10.2 SEC (9.30-11.50) Prothromb Time International Ratio 1.0 (0.9-1.1) Activated Partial Thromboplast Time 25 SEC (23-33) Sodium Level 142 MMOL/L (136-145) Potassium Level 3.8 MMOL/L (3.5-5.1) Chloride Level 109 MMOL/L (98-107) H Carbon Dioxide Level 24 MMOL/L (21-32) Anion Gap 9 mmol/L (5-15) Blood Urea Nitrogen 35 mg/dL (7-18) H Creatinine 1.3 MG/DL (0.55-1.30) Estimat Glomerular Filtration Rate mL/min (>60) Glucose Level 125 MG/DL (74-106) H Calcium Level 8.4 MG/DL (8.5-10.1) L Iron Level 33 ug/dL (50-175) L Total Iron Binding Capacity 242 ug/dL (250-450) L Percent Iron Saturation 14 % (15-50) L Unsaturated Iron Binding 209 ug/dL (112-346) Lactate Dehydrogenase 146 U/L (81-234) Carcinoembryonic Antigen Pending Vitamin B12 Level 656 PG/ML (193-986) Folate 30.6 NG/ML (8.6-58.9) Plan Problems: (1) Urinary tract infection (2) Hydronephrosis (3) Umbilical hernia (4) Partial small bowel obstruction Assessment & Plan: 83-year-old female who presented with generalized weakness and feeling unwell. On further work-up was identified to have a ventral hernia with bowel contents. Patient without obstructive symptoms. No nausea vomiting fever or chills. Labs okay. Examination benign with soft abdomen that is nontender nondistended and positive bowel sounds. Hernia cannot be palpated and potentially reduced already but cannot identify fascial defect given the amount of adipose tissue. Patient states that last bowel movement was yesterday and has not had one today. States she is able to tolerate oral diet. kub okay exam stable No acute surgical intervention planned. Okay for diet as tolerated . Ambulate and out of bed. Rx as written. ventral hernia repair elective outpatient Thank you for this consultation we will follow with recommendations (5) Generalized weakness (6) Acute metabolic encephalopathy (7) Diabetes mellitus (8) Hypertension, uncontrolled (9) Hypercholesterolemia (10) Alcohol dependence (11) Incontinence Joseph Hare Nov 14, 2018 16:48
--- NOTE | 2018-11-14 16:53 | NUR ---
NURSE NOTES: Lab called to report patient has ESBL urine. ID notified. No new orders received.
--- NOTE | 2018-11-14 16:54 | NUR ---
NURSE NOTES: Patient noted with large localized scattered rash that spreads from bilateral buttocks to lower back, scratch starkey also noted. ID notified. New order received.
--- NOTE | 2018-11-14 19:12 | Internal Med Progress Note ---
Subjective Date of Service: Nov 14, 2018 Physician Name Rhys Yousif Attending Physician Ari Mckeon MD Current Medications Medications (Trade) Dose Ordered Sig/Kannan Route PRN Reason Start Time Stop Time Status Last Admin Dose Admin Acetaminophen (Tylenol) 650 mg Q4H PRN ORAL fever 11/13/18 16:30 12/12/18 16:29 Albuterol/ Ipratropium (Albuterol/ Ipratropium) 3 ml Q4H PRN HHN Shortness of Breath 11/13/18 17:00 11/18/18 16:59 Carvedilol (Coreg) 3.125 mg EVERY 12 HOURS ORAL 11/13/18 21:00 12/12/18 22:59 11/14/18 09:11 Clopidogrel Bisulfate (Plavix) 75 mg DAILY ORAL 11/14/18 09:00 12/13/18 08:59 11/14/18 09:11 Dextrose (Dextrose 50%) 25 ml Q30M PRN IV Hypoglycemia 11/13/18 16:30 12/13/18 16:29 Dextrose (Dextrose 50%) 50 ml Q30M PRN IV Hypoglycemia 11/13/18 16:30 12/13/18 16:29 Gabapentin (Neurontin) 300 mg BEDTIME ORAL 11/13/18 21:00 12/12/18 22:59 11/13/18 21:05 Heparin Sodium (Porcine) (Heparin 5000 units/ml) 5,000 units EVERY 12 HOURS SUBQ 11/13/18 21:00 12/13/18 08:59 11/14/18 09:14 Insulin Aspart (NovoLOG) BEFORE MEALS AND HS SUBQ 11/13/18 16:30 12/13/18 06:29 11/14/18 16:56 Morphine Sulfate (Morphine Sulfate) 2 mg Q4H PRN IVP Moderate Pain (Pain Scale 4-6) 11/13/18 16:30 11/19/18 16:29 Nitroglycerin (Ntg) 0.4 mg Q5M PRN SL Prn Chest Pain 11/13/18 16:15 12/12/18 22:29 Olanzapine (ZyPREXA) 2.5 mg BID ORAL 11/13/18 18:00 12/13/18 08:59 11/14/18 17:53 Ondansetron HCl (Zofran) 4 mg Q6H PRN IVP Nausea & Vomiting 11/13/18 16:30 12/12/18 22:29 Piperacillin Sod/ Tazobactam Sod 3.375 gm/Sodium Chloride 110 ml @ 27.5 mls/hr EVERY 8 HOURS IVPB 11/14/18 12:00 11/19/18 11:59 11/14/18 16:03 Polyethylene Glycol (Miralax) 17 gm DAILYPRN PRN ORAL Constipation 11/13/18 16:30 12/12/18 16:29 Temazepam (Restoril) 15 mg HSPRN PRN ORAL Insomnia 11/13/18 21:00 11/19/18 20:59 Vancomycin HCl (Vanco rx to dose) 1 ea DAILY PRN MISC PER RX PROTOCOL 11/14/18 09:00 12/13/18 07:29 Vancomycin HCl 1 gm/Dextrose 275 ml @ 183.3 mls/ hr Q24H IVPB 11/14/18 09:00 11/18/18 08:59 11/14/18 11:43 Allergies: Coded Allergies: NO KNOWN DRUG ALLERGIES (Verified Allergy, Unknown, 06/09/17) ROS Limited/Unobtainable: No Constitutional: Reports: weakness HEENT: Reports: no symptoms Cardiovascular: Reports: no symptoms Respiratory: Reports: no symptoms Gastrointestinal/Abdominal: Reports: no symptoms Genitourinary: Reports: no symptoms Neurologic/Psychiatric: Reports: no symptoms Subjective 73 YO F admitted with generalized weakness and vertigo. Cover for Int Med-DR Mckeon. Await MRI brain Objective Last Vital Signs Date Time Temp Pulse Resp B/P (MAP) Pulse Ox O2 Delivery O2 Flow Rate FiO2 11/14/18 16:00 98.0 69 18 117/69 (85) 98 11/14/18 12:29 Room Air 11/14/18 07:00 21 Laboratory Tests Test 11/14/18 07:01 White Blood Count 5.3 K/UL (4.8-10.8) Red Blood Count 2.99 M/UL (4.20-5.40) L Hemoglobin 9.0 G/DL (12.0-16.0) L Hematocrit 26.7 % (37.0-47.0) L Mean Corpuscular Volume 89 FL (80-99) Mean Corpuscular Hemoglobin 30.1 PG (27.0-31.0) Mean Corpuscular Hemoglobin Concent 33.7 G/DL (32.0-36.0) Red Cell Distribution Width 12.7 % (11.6-14.8) Platelet Count 180 K/UL (150-450) Mean Platelet Volume 7.3 FL (6.5-10.1) Neutrophils (%) (Auto) % (45.0-75.0) Lymphocytes (%) (Auto) % (20.0-45.0) Monocytes (%) (Auto) % (1.0-10.0) Eosinophils (%) (Auto) % (0.0-3.0) Basophils (%) (Auto) % (0.0-2.0) Differential Total Cells Counted 100 Neutrophils % (Manual) 44 % (45-75) L Lymphocytes % (Manual) 35 % (20-45) Monocytes % (Manual) 15 % (1-10) H Eosinophils % (Manual) 6 % (0-3) H Basophils % (Manual) 0 % (0-2) Band Neutrophils 0 % (0-8) Platelet Estimate Adequate Platelet Morphology Normal Anisocytosis 1+ Erythrocyte Sedimentation Rate 71 MM/HR (0-30) H Reticulocyte Count 1.2 % (0.5-2.0) Prothrombin Time 10.2 SEC (9.30-11.50) Prothromb Time International Ratio 1.0 (0.9-1.1) Activated Partial Thromboplast Time 25 SEC (23-33) Sodium Level 142 MMOL/L (136-145) Potassium Level 3.8 MMOL/L (3.5-5.1) Chloride Level 109 MMOL/L (98-107) H Carbon Dioxide Level 24 MMOL/L (21-32) Anion Gap 9 mmol/L (5-15) Blood Urea Nitrogen 35 mg/dL (7-18) H Creatinine 1.3 MG/DL (0.55-1.30) Estimat Glomerular Filtration Rate mL/min (>60) Glucose Level 125 MG/DL (74-106) H Calcium Level 8.4 MG/DL (8.5-10.1) L Iron Level 33 ug/dL (50-175) L Total Iron Binding Capacity 242 ug/dL (250-450) L Percent Iron Saturation 14 % (15-50) L Unsaturated Iron Binding 209 ug/dL (112-346) Lactate Dehydrogenase 146 U/L (81-234) Carcinoembryonic Antigen Pending Vitamin B12 Level 656 PG/ML (193-986) Folate 30.6 NG/ML (8.6-58.9) Microbiology Date/Time Source Procedure Growth Status 11/12/18 17:30 Nasal Nares Right MRSA Culture - Final NO METHICILLIN RESISTANT STAPH AUREUS... Complete 11/12/18 18:00 Urine,Clean Catch Urine Culture - Final Escherichia Coli - Esbl Complete 11/12/18 17:30 Rectum VRE Culture - Final NO VANCOMYCIN RESISTANT ENTEROCOCCUS ... Resulted 11/12/18 17:30 Rectum Pending Resulted Intake and Output 11/13/18 11/14/18 19:00 07:00 Intake Total 840 ml 120 ml Balance 840 ml 120 ml Intake Oral 840 ml 120 ml # Voids 3 # Bowel Movements 1 1 Objective PHYSICAL EXAMINATION: GENERAL: The patient is a well-developed and well-nourished female, in no apparent distress. HEENT: Eyes, pupils are equal and responsive to light and accommodation. Extraocular movements are intact. NECK: Supple without lymphadenopathy. CHEST: Lungs are clear to auscultation bilaterally without wheezes or rales. CARDIOVASCULAR: Tachycardic, regular rhythm. S1 and S2 are normal without murmurs, rubs, or gallops. ABDOMEN: Soft, nontender, and nondistended. Positive bowel sounds. No evidence of hepatosplenomegaly. Currently, no rebound or guarding noted. EXTREMITIES: Negative for clubbing, cyanosis, or edema. RECTAL/GENITAL: Refused. NEUROLOGIC: Cranial nerves II through XII are grossly intact without focal deficits. Motor strength is 5/5 bilaterally. Deep tendon reflexes are 2+ plantar. Assessment/Plan Assessment/Plan ASSESSMENT: This is a 73-year-old female. 1. Small bowel obstruction. 2. Generalized weakness. 3. Vertigo. 4. Diabetes type 2. 5. Hypertension. 6. Hypercholesterolemia. 7. Anemia. 8. History of alcohol dependence. TREATMENT: 1. Small bowel obstruction. A Surgery consultation has been obtained with Dr. Hare. We will follow recommendations of Surgery. 2. Generalized weakness/vertigo. This may be secondary to diabetes versus acute stroke. An MRI scan of the brain is pending. 3. Diabetes type 2. A NovoLog sliding scale has been instituted. 4. Hypertension. Continue lisinopril as above. 5. Hypercholesterolemia. Continue atorvastatin as above. 6. Alcohol dependence/withdrawal. 7. Severe anemia. This was secondary to pessary versus foreign object in the vagina. The patient's current hemoglobin and hematocrit are stable. Rhys Yousif MD Nov 14, 2018 19:12
--- NOTE | 2018-11-14 19:28 | NUR ---
HAND-OFF: Report given to Jennifer MADDEN.
--- NOTE | 2018-11-14 19:45 | NUR ---
NURSE NOTES: Received report from MARYANNE Serrano and MARYANNE Shaikh. Patient in bed, awake, and alert x 3. No signs of respiratory distress. Right wrist IV is intact. Bed is in the lowest position with 3 bed rails up. Alarm on and call light within reach. Will continue to monitor.
[2018-11-14 20:00] VITALS: BP 127/73
[2018-11-15] VITALS: BP 132/65
[2018-11-15] MEDS: Zosyn 3.375gm q8h **Extended infusion IVPB SCH ×2 (06:21)
[2018-11-15 06:30] LABS: ANION GAP 11 mmol/L (5-15); BLOOD UREA NITROGEN 36 mg/dL (7-18); CALCIUM 8.4 MG/DL (8.5-10.1); CARBON DIOXIDE 21 MMOL/L (21-32); CHLORIDE 111 MMOL/L (98-107); CREATININE 1.4 MG/DL (0.55-1.30); POTASSIUM 4.2 MMOL/L (3.5-5.1); SODIUM 143 MMOL/L (136-145)
[2018-11-15 06:37] LABS: BASOPHILS % (AUTO) 0.8 % (0.0-2.0); EOSINOPHILS % (AUTO) 5.3 % (0.0-3.0); HEMATOCRIT 27.3 % (37.0-47.0); HEMOGLOBIN 9.3 G/DL (12.0-16.0); LYMPHOCYTES % (AUTO) 28.9 % (20.0-45.0); MEAN CORPUSCULAR VOLUME 89 FL (80-99); MONOCYTES % (AUTO) 10.2 % (1.0-10.0); NEUTROPHILS % (AUTO) 54.8 % (45.0-75.0); PLATELET COUNT 198 K/UL (150-450); RED BLOOD COUNT 3.09 M/UL (4.20-5.40); RED CELL DISTRIBUTION WIDTH 12.9 % (11.6-14.8); WHITE BLOOD COUNT 5.5 K/UL (4.8-10.8)
[2018-11-15] MEDS: NovoLOG Insulin Flexpen SUBQ SCH ×4 (06:44→21:22)
--- NOTE | 2018-11-15 07:18 | NUR ---
HAND-OFF: Report given to MARYANNE Mckeon.
--- NOTE | 2018-11-15 07:30 | NUR ---
NURSE NOTES: REPORT RECEIVED FROM MARYANNE GURROLA. PATIENT SLEEPING, IV SITE IS CLEAN DRY AND INTACT. BED LOCKED AND IN LOWEST POSITION.
[2018-11-15 08:00] VITALS: BP 147/68
[2018-11-15] MEDS: OLANZapine 2.5mg tab ORAL SCH ×2 (08:26→17:58)
[2018-11-15] MEDS: Vancomycin 1 GM in D5W 275 ML IVPB SCH (08:27)
[2018-11-15] MEDS: Heparin 5000 units/ml inj SUBQ SCH ×2 (08:33→21:22)
[2018-11-15] MEDS: Morphine Sulfate 2mg/ml Inj(IV/IM USE ONLY) IVP PRN (09:20)
[2018-11-15] MEDS ORDERED: LORazepam Inj 2mg/ml 1ml IV PRN (09:45)
--- NOTE | 2018-11-15 11:42 | NUR ---
*-* INSURANCE *-* ALL CLINICALS AND REVIEWS HAVE BEEN FAXED TO: [employer] PRE CERT PALS NURSE: CHEMA FAX: [phone] (SEND CLINICALS)
--- NOTE | 2018-11-15 11:58 | NUR ---
NURSE NOTES: Lab called to report blood culture results of gram positive cocci in clusters x1 bottle. Dr. Mcgill ID notified. New order received.
[2018-11-15 12:00] VITALS: BP 119/66
--- NOTE | 2018-11-15 12:36 | NUR ---
11/15.. Concerning MRI, again, even w/iv sedation pt does not stay asleep and still. MARYANNE Mckeon will call when pt becomes deeply asleep. silke 12:37
--- NOTE | 2018-11-15 13:13 | Surgery Progress Note ---
Surgery Progress Note Subjective Symptoms: improved, pain absent, tolerating diet, BM Objective Last 24 Hour Vital Signs Date Time Temp Pulse Resp B/P (MAP) Pulse Ox O2 Delivery O2 Flow Rate FiO2 11/15/18 12:00 97.9 65 18 119/66 (83) 96 11/15/18 11:15 68 18 94 Room Air 21 11/15/18 09:00 Room Air 11/15/18 08:26 64 147/68 11/15/18 08:00 97.7 64 20 147/68 (94) 94 11/15/18 00:00 98.0 64 18 132/65 (87) 99 11/14/18 21:00 Room Air 11/14/18 20:38 73 127/74 11/14/18 20:00 99.2 73 20 127/73 (91) 97 11/14/18 20:00 70 18 95 Room Air 21 11/14/18 16:00 98.0 69 18 117/69 (85) 98 I&O Intake and Output 11/14/18 11/15/18 19:00 07:00 Intake Total 260 ml 610.0 ml Balance 260 ml 610.0 ml Intake Oral 260 ml 500 ml IV Total 110.0 ml # Voids 3 2 Drains: none Cardiovascular: RSR Respiratory: clear Abdomen: soft, flat, non-tender, present bowel sounds, non-distended Extremities: no tenderness, no cyanosis Laboratory Tests Test 11/15/18 05:30 White Blood Count 5.5 K/UL (4.8-10.8) Red Blood Count 3.09 M/UL (4.20-5.40) L Hemoglobin 9.3 G/DL (12.0-16.0) L Hematocrit 27.3 % (37.0-47.0) L Mean Corpuscular Volume 89 FL (80-99) Mean Corpuscular Hemoglobin 30.3 PG (27.0-31.0) Mean Corpuscular Hemoglobin Concent 34.2 G/DL (32.0-36.0) Red Cell Distribution Width 12.9 % (11.6-14.8) Platelet Count 198 K/UL (150-450) Mean Platelet Volume 6.9 FL (6.5-10.1) Neutrophils (%) (Auto) 54.8 % (45.0-75.0) Lymphocytes (%) (Auto) 28.9 % (20.0-45.0) Monocytes (%) (Auto) 10.2 % (1.0-10.0) H Eosinophils (%) (Auto) 5.3 % (0.0-3.0) H Basophils (%) (Auto) 0.8 % (0.0-2.0) Sodium Level 143 MMOL/L (136-145) Potassium Level 4.2 MMOL/L (3.5-5.1) Chloride Level 111 MMOL/L (98-107) H Carbon Dioxide Level 21 MMOL/L (21-32) Anion Gap 11 mmol/L (5-15) Blood Urea Nitrogen 36 mg/dL (7-18) H Creatinine 1.4 MG/DL (0.55-1.30) H Estimat Glomerular Filtration Rate mL/min (>60) Glucose Level 131 MG/DL (74-106) H Calcium Level 8.4 MG/DL (8.5-10.1) L Plan Problems: (1) Urinary tract infection (2) Hydronephrosis (3) Umbilical hernia (4) Partial small bowel obstruction Assessment & Plan: 83-year-old female who presented with generalized weakness and feeling unwell. On further work-up was identified to have a ventral hernia with bowel contents. Patient without obstructive symptoms. No nausea vomiting fever or chills. Labs okay. Examination benign with soft abdomen that is nontender nondistended and positive bowel sounds. Hernia cannot be palpated and potentially reduced already but cannot identify fascial defect given the amount of adipose tissue. Patient states that last bowel movement was yesterday and has not had one today. States she is able to tolerate oral diet. kub okay exam stable No acute surgical intervention planned. Okay for diet as tolerated . Ambulate and out of bed. Rx as written. ventral hernia repair elective outpatient Thank you for this consultation we will follow with recommendations (5) Generalized weakness (6) Acute metabolic encephalopathy (7) Diabetes mellitus (8) Hypertension, uncontrolled (9) Hypercholesterolemia (10) Alcohol dependence (11) Incontinence Joseph Hare Nov 15, 2018 13:13
--- NOTE | 2018-11-15 13:15 | NUR ---
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 UTI VS: BP 157/66, P 61, T 97.9, RR 18, SpO2 96 RBC 3.09, H&H 9.3/27.3, BUN 36, CR 1.4, GLUCOSE 131 IS: ZOSYN 110ml IVPB MORPHINE 2mg IVP LORAZEPAM 1mg IRON SUCROSE 120ml IV DAPTOMYCIN 55ml ERTAPENEM 55ml IVPB HEPARIN SUBQ COREG 3.125mg ZYPREXA 2.5mg PLAVIX 75mg NOVOLOG SUBQ GABAPENTIN 300mg MED/SURG STATUS
--- NOTE | 2018-11-15 13:19 | Pulmonology Progress Note ---
Assessment/Plan Problems: (1) MDRO (multiple drug resistant organisms) resistance (2) ATN (acute tubular necrosis) (3) Urinary tract infection (4) Acute metabolic encephalopathy (5) Hydronephrosis (6) Umbilical hernia (7) Diabetes mellitus Assessment/Plan GI/surgery evaluation appreciated wells cultures, still pending iv abx iv fluids check electrolytes sliding scale pt/ot Subjective ROS Limited/Unobtainable: No Constitutional: Reports: no symptoms HEENT: Repors: no symptoms Respiratory: Reports: no symptoms Allergies: Coded Allergies: NO KNOWN DRUG ALLERGIES (Verified Allergy, Unknown, 06/09/17) Objective Last 24 Hour Vital Signs Date Time Temp Pulse Resp B/P (MAP) Pulse Ox O2 Delivery O2 Flow Rate FiO2 11/15/18 12:00 97.9 65 18 119/66 (83) 96 11/15/18 11:15 68 18 94 Room Air 21 11/15/18 09:00 Room Air 11/15/18 08:26 64 147/68 11/15/18 08:00 97.7 64 20 147/68 (94) 94 11/15/18 00:00 98.0 64 18 132/65 (87) 99 11/14/18 21:00 Room Air 11/14/18 20:38 73 127/74 11/14/18 20:00 99.2 73 20 127/73 (91) 97 11/14/18 20:00 70 18 95 Room Air 21 11/14/18 16:00 98.0 69 18 117/69 (85) 98 Intake and Output 11/14/18 11/15/18 19:00 07:00 Intake Total 260 ml 610.0 ml Balance 260 ml 610.0 ml Intake Oral 260 ml 500 ml IV Total 110.0 ml # Voids 3 2 General Appearance: cachetic HEENT: normocephalic, atraumatic Respiratory/Chest: chest wall non-tender, lungs clear Breasts: no masses Cardiovascular: normal rate Abdomen: soft, non tender, non distended, no scars Extremities: no cyanosis Skin: no rash Microbiology Date/Time Source Procedure Growth Status 11/12/18 17:35 Blood Blood Culture - Preliminary NO GROWTH AFTER 48 HOURS Resulted 11/12/18 17:20 Blood Blood Culture - Preliminary Resulted 11/12/18 17:30 Nasal Nares Right MRSA Culture - Final NO METHICILLIN RESISTANT STAPH AUREUS... Complete 11/12/18 18:00 Urine,Clean Catch Urine Culture - Final Escherichia Coli - Esbl Complete 11/12/18 17:30 Rectum VRE Culture - Final NO VANCOMYCIN RESISTANT ENTEROCOCCUS ... Complete 11/12/18 17:30 Rectum - Final NO CARBAPENEM-RESISTANT ENTEROBACTERI... Complete Laboratory Tests 11/15/18 05:30: White Blood Count 5.5, Red Blood Count 3.09L, Hemoglobin 9.3L, Hematocrit 27.3L , Mean Corpuscular Volume 89, Mean Corpuscular Hemoglobin 30.3, Mean Corpuscular Hemoglobin Concent 34.2, Red Cell Distribution Width 12.9, Platelet Count 198, Mean Platelet Volume 6.9, Neutrophils (%) (Auto) 54.8, Lymphocytes (% ) (Auto) 28.9, Monocytes (%) (Auto) 10.2H, Eosinophils (%) (Auto) 5.3H, Basophils (%) (Auto) 0.8, Sodium Level 143, Potassium Level 4.2, Chloride Level 111H, Carbon Dioxide Level 21, Anion Gap 11, Blood Urea Nitrogen 36H, Creatinine 1.4H, Estimat Glomerular Filtration Rate , Glucose Level 131H, Calcium Level 8.4L Current Medications Medications (Trade) Dose Ordered Sig/Kannan Route PRN Reason Start Time Stop Time Status Last Admin Dose Admin Acetaminophen (Tylenol) 650 mg Q4H PRN ORAL fever 11/13/18 16:30 12/12/18 16:29 Albuterol/ Ipratropium (Albuterol/ Ipratropium) 3 ml Q4H PRN HHN Shortness of Breath 11/13/18 17:00 11/18/18 16:59 Carvedilol (Coreg) 3.125 mg EVERY 12 HOURS ORAL 11/13/18 21:00 12/12/18 22:59 11/15/18 08:26 Clopidogrel Bisulfate (Plavix) 75 mg DAILY ORAL 11/14/18 09:00 12/13/18 08:59 11/15/18 08:26 Dextrose (Dextrose 50%) 25 ml Q30M PRN IV Hypoglycemia 11/13/18 16:30 12/13/18 16:29 Dextrose (Dextrose 50%) 50 ml Q30M PRN IV Hypoglycemia 11/13/18 16:30 12/13/18 16:29 Gabapentin (Neurontin) 300 mg BEDTIME ORAL 11/13/18 21:00 12/12/18 22:59 11/14/18 20:38 Heparin Sodium (Porcine) (Heparin 5000 units/ml) 5,000 units EVERY 12 HOURS SUBQ 11/13/18 21:00 12/13/18 08:59 11/15/18 08:33 Insulin Aspart (NovoLOG) BEFORE MEALS AND HS SUBQ 11/13/18 16:30 12/13/18 06:29 11/15/18 12:01 Iron Sucrose 200 mg/Sodium Chloride 120 ml @ 240 mls/hr ONCE ONCE IVPB 11/15/18 13:15 11/15/18 13:44 UNV Lorazepam (Ativan 2mg/ml 1ml) 1 mg ONCE PRN IV prior to brain MRI 11/15/18 09:45 11/16/18 23:59 11/15/18 10:31 Morphine Sulfate (Morphine Sulfate) 2 mg Q4H PRN IVP Moderate Pain (Pain Scale 4-6) 11/13/18 16:30 11/19/18 16:29 11/15/18 09:20 Nitroglycerin (Ntg) 0.4 mg Q5M PRN SL Prn Chest Pain 11/13/18 16:15 12/12/18 22:29 Olanzapine (ZyPREXA) 2.5 mg BID ORAL 11/13/18 18:00 12/13/18 08:59 11/15/18 08:26 Ondansetron HCl (Zofran) 4 mg Q6H PRN IVP Nausea & Vomiting 11/13/18 16:30 12/12/18 22:29 Piperacillin Sod/ Tazobactam Sod 3.375 gm/Sodium Chloride 110 ml @ 27.5 mls/hr EVERY 8 HOURS IVPB 11/14/18 12:00 11/19/18 11:59 11/15/18 06:21 Polyethylene Glycol (Miralax) 17 gm DAILYPRN PRN ORAL Constipation 11/13/18 16:30 12/12/18 16:29 Temazepam (Restoril) 15 mg HSPRN PRN ORAL Insomnia 11/13/18 21:00 11/19/18 20:59 Vancomycin HCl (Vanco rx to dose) 1 ea DAILY PRN MISC PER RX PROTOCOL 11/14/18 09:00 12/13/18 07:29 Oscar Quezada MD Nov 15, 2018 13:19
--- NOTE | 2018-11-15 14:41 | NUR ---
RD ASSESSMENT & RECOMMENDATIONS SEE CARE ACTIVITY FOR COMPLETE ASSESSMENT DAILY ESTIMATED NEEDS: Needs based on DM 51kg adj 25-30 kcals/kg 8082-9166 total kcals 1-1.5 g protein/kg 51-77 g total protein 25-30 mL/kg 3201-5736 total fluid mLs NUTRITION DIAGNOSIS: Altered nutrition related lab values r/t diabetes as evidenced by elev BG, elev POC (134-156). CURRENT DIET: CCHO MED PO DIET RECOMMENDATIONS: CCHO LOW, SOFT ADDITIONAL RECOMMENDATIONS: 1) Obtain a calibrated bed scale wt as able 2) Monitor PO tolerance and intake- partial bowel obstruction per MD .
--- NOTE | 2018-11-15 14:46 | Infectious Diseases Prog Note ---
Assessment/Plan Assessment/Plan Assessment/Plan: 73 yo female with PMHx of HTN and DM who presented ot the ED on 11/12/18 with one day of weakness. UTI UCx 11/12/18- esbl e.COLI (s zOSYN, tigecycline, ertap) No Fever No leukcoytosis Gram positive bacteremia- real vs contaminant -11/12 Bcx 1/4 GPC clusters AMOS Periumbilical hernia, probable early/ partial SBO A CT scan (11/12/18) of the abd showed early or partal SBO along with periumbilical hernia. The patient how ever has been tolerating PO diet. Afebrile no leukocytosis HTN DM PLAN: - Switch Zosyn #2/5-7 to Ertapenem for eSBL UTI given AMOS -Add Daptomycin for gram positive bacteremia -11/14 SP IV vancomycin #1 -11/14 SP Cefepime #2 - 11/13/18 SP Flagyl #1 - f/u urine Cx - Monitor CBC and Temps -Bcx x2 -CK am Thank you for this consult. We will continue to follow the patient during this hospitalization. Subjective Allergies: Coded Allergies: NO KNOWN DRUG ALLERGIES (Verified Allergy, Unknown, 06/09/17) Subjective afebrile no leukocytosis Objective Vital Signs Last 24 Hour Vital Signs Date Time Temp Pulse Resp B/P (MAP) Pulse Ox O2 Delivery O2 Flow Rate FiO2 11/15/18 12:00 97.9 65 18 119/66 (83) 96 11/15/18 11:15 68 18 94 Room Air 21 11/15/18 09:00 Room Air 11/15/18 08:26 64 147/68 11/15/18 08:00 97.7 64 20 147/68 (94) 94 11/15/18 00:00 98.0 64 18 132/65 (87) 99 11/14/18 21:00 Room Air 11/14/18 20:38 73 127/74 11/14/18 20:00 99.2 73 20 127/73 (91) 97 11/14/18 20:00 70 18 95 Room Air 21 11/14/18 16:00 98.0 69 18 117/69 (85) 98 Height (Feet): 5 Height (Inches): 4.00 Weight (Pounds): 160 Objective Gen: NAD HEENT: NCAT, MMM, EOMI, PERRL, No Oral lesion, no scleral icterus NECK: full range of motion, supple, no meningismus, No LAD, No JVD LUNGS: CTAB, No W/C, No Accessory muscle use CARDS: RRR, S1, S2, No M/R/G, ABD: Soft, NT, ND, No R/G, + BS, No HSM, No Masses : Deferred Ext: C/C/E, Pulses 2+ B/L (DP, Rad): NEURO: A/O x 4, Strength and Sensation Grossly intact PSYCH: Normal mood and affect SKIN: Warm/dry, No rashes Microbiology Date/Time Source Procedure Growth Status 11/12/18 17:35 Blood Blood Culture - Preliminary NO GROWTH AFTER 48 HOURS Resulted 11/12/18 17:20 Blood Blood Culture - Preliminary Resulted 11/12/18 17:30 Nasal Nares Right MRSA Culture - Final NO METHICILLIN RESISTANT STAPH AUREUS... Complete 11/12/18 18:00 Urine,Clean Catch Urine Culture - Final Escherichia Coli - Esbl Complete 11/12/18 17:30 Rectum VRE Culture - Final NO VANCOMYCIN RESISTANT ENTEROCOCCUS ... Complete 11/12/18 17:30 Rectum - Final NO CARBAPENEM-RESISTANT ENTEROBACTERI... Complete Laboratory Tests Test 11/15/18 05:30 White Blood Count 5.5 K/UL (4.8-10.8) Red Blood Count 3.09 M/UL (4.20-5.40) L Hemoglobin 9.3 G/DL (12.0-16.0) L Hematocrit 27.3 % (37.0-47.0) L Mean Corpuscular Volume 89 FL (80-99) Mean Corpuscular Hemoglobin 30.3 PG (27.0-31.0) Mean Corpuscular Hemoglobin Concent 34.2 G/DL (32.0-36.0) Red Cell Distribution Width 12.9 % (11.6-14.8) Platelet Count 198 K/UL (150-450) Mean Platelet Volume 6.9 FL (6.5-10.1) Neutrophils (%) (Auto) 54.8 % (45.0-75.0) Lymphocytes (%) (Auto) 28.9 % (20.0-45.0) Monocytes (%) (Auto) 10.2 % (1.0-10.0) H Eosinophils (%) (Auto) 5.3 % (0.0-3.0) H Basophils (%) (Auto) 0.8 % (0.0-2.0) Sodium Level 143 MMOL/L (136-145) Potassium Level 4.2 MMOL/L (3.5-5.1) Chloride Level 111 MMOL/L (98-107) H Carbon Dioxide Level 21 MMOL/L (21-32) Anion Gap 11 mmol/L (5-15) Blood Urea Nitrogen 36 mg/dL (7-18) H Creatinine 1.4 MG/DL (0.55-1.30) H Estimat Glomerular Filtration Rate mL/min (>60) Glucose Level 131 MG/DL (74-106) H Calcium Level 8.4 MG/DL (8.5-10.1) L Current Medications Medications (Trade) Dose Ordered Sig/Kannan Route PRN Reason Start Time Stop Time Status Last Admin Dose Admin Acetaminophen (Tylenol) 650 mg Q4H PRN ORAL fever 11/13/18 16:30 12/12/18 16:29 Albuterol/ Ipratropium (Albuterol/ Ipratropium) 3 ml Q4H PRN HHN Shortness of Breath 11/13/18 17:00 11/18/18 16:59 Carvedilol (Coreg) 3.125 mg EVERY 12 HOURS ORAL 11/13/18 21:00 12/12/18 22:59 11/15/18 08:26 Clopidogrel Bisulfate (Plavix) 75 mg DAILY ORAL 11/14/18 09:00 12/13/18 08:59 11/15/18 08:26 Dextrose (Dextrose 50%) 25 ml Q30M PRN IV Hypoglycemia 11/13/18 16:30 12/13/18 16:29 Dextrose (Dextrose 50%) 50 ml Q30M PRN IV Hypoglycemia 11/13/18 16:30 12/13/18 16:29 Gabapentin (Neurontin) 300 mg BEDTIME ORAL 11/13/18 21:00 12/12/18 22:59 11/14/18 20:38 Heparin Sodium (Porcine) (Heparin 5000 units/ml) 5,000 units EVERY 12 HOURS SUBQ 11/13/18 21:00 12/13/18 08:59 11/15/18 08:33 Insulin Aspart (NovoLOG) BEFORE MEALS AND HS SUBQ 11/13/18 16:30 12/13/18 06:29 11/15/18 12:01 Iron Sucrose 200 mg/Sodium Chloride 120 ml @ 240 mls/hr ONCE ONCE IV 11/15/18 15:00 11/15/18 15:29 Lorazepam (Ativan 2mg/ml 1ml) 1 mg ONCE PRN IV prior to brain MRI 11/15/18 09:45 11/16/18 23:59 11/15/18 10:31 Morphine Sulfate (Morphine Sulfate) 2 mg Q4H PRN IVP Moderate Pain (Pain Scale 4-6) 11/13/18 16:30 11/19/18 16:29 11/15/18 09:20 Nitroglycerin (Ntg) 0.4 mg Q5M PRN SL Prn Chest Pain 11/13/18 16:15 12/12/18 22:29 Olanzapine (ZyPREXA) 2.5 mg BID ORAL 11/13/18 18:00 12/13/18 08:59 11/15/18 08:26 Ondansetron HCl (Zofran) 4 mg Q6H PRN IVP Nausea & Vomiting 11/13/18 16:30 12/12/18 22:29 Piperacillin Sod/ Tazobactam Sod 3.375 gm/Sodium Chloride 110 ml @ 27.5 mls/hr EVERY 8 HOURS IVPB 11/14/18 12:00 11/19/18 11:59 11/15/18 06:21 Polyethylene Glycol (Miralax) 17 gm DAILYPRN PRN ORAL Constipation 11/13/18 16:30 12/12/18 16:29 Temazepam (Restoril) 15 mg HSPRN PRN ORAL Insomnia 11/13/18 21:00 11/19/18 20:59 Myriam Mcgill M.D. Nov 15, 2018 14:46
[2018-11-15] MEDS ORDERED: Iron Sucrose 200 MG in NS 110 ML IV ONE (15:00)
[2018-11-15 16:00] VITALS: BP 157/66
[2018-11-15] MEDS: Ertapenem 0.5 GM in NS 55 ML IVPB SCH (16:08)
[2018-11-15] MEDS ORDERED: DAPTOmycin 450 MG in NS 55 ML IV SCH (16:30)
--- NOTE | 2018-11-15 17:04 | Internal Med Progress Note ---
Subjective Date of Service: Nov 15, 2018 Physician Name Rhys Yousif Attending Physician Ari Mckeon MD Current Medications Medications (Trade) Dose Ordered Sig/Kannan Route PRN Reason Start Time Stop Time Status Last Admin Dose Admin Acetaminophen (Tylenol) 650 mg Q4H PRN ORAL fever 11/13/18 16:30 12/12/18 16:29 Albuterol/ Ipratropium (Albuterol/ Ipratropium) 3 ml Q4H PRN HHN Shortness of Breath 11/13/18 17:00 11/18/18 16:59 Carvedilol (Coreg) 3.125 mg EVERY 12 HOURS ORAL 11/13/18 21:00 12/12/18 22:59 11/15/18 08:26 Clopidogrel Bisulfate (Plavix) 75 mg DAILY ORAL 11/14/18 09:00 12/13/18 08:59 11/15/18 08:26 Daptomycin 450 mg/ Sodium Chloride 55 ml @ 100 mls/hr Q48H IV 11/15/18 16:30 11/22/18 16:29 Dextrose (Dextrose 50%) 25 ml Q30M PRN IV Hypoglycemia 11/13/18 16:30 12/13/18 16:29 Dextrose (Dextrose 50%) 50 ml Q30M PRN IV Hypoglycemia 11/13/18 16:30 12/13/18 16:29 Ertapenem 0.5 gm/ Sodium Chloride 55 ml @ 110 mls/hr Q24H IVPB 11/15/18 16:00 11/20/18 15:59 11/15/18 16:08 Gabapentin (Neurontin) 300 mg BEDTIME ORAL 11/13/18 21:00 12/12/18 22:59 11/14/18 20:38 Heparin Sodium (Porcine) (Heparin 5000 units/ml) 5,000 units EVERY 12 HOURS SUBQ 11/13/18 21:00 12/13/18 08:59 11/15/18 08:33 Insulin Aspart (NovoLOG) BEFORE MEALS AND HS SUBQ 11/13/18 16:30 12/13/18 06:29 11/15/18 12:01 Lorazepam (Ativan 2mg/ml 1ml) 1 mg ONCE PRN IV prior to brain MRI 11/15/18 09:45 11/16/18 23:59 11/15/18 10:31 Morphine Sulfate (Morphine Sulfate) 2 mg Q4H PRN IVP Moderate Pain (Pain Scale 4-6) 11/13/18 16:30 11/19/18 16:29 11/15/18 09:20 Nitroglycerin (Ntg) 0.4 mg Q5M PRN SL Prn Chest Pain 11/13/18 16:15 12/12/18 22:29 Olanzapine (ZyPREXA) 2.5 mg BID ORAL 11/13/18 18:00 12/13/18 08:59 11/15/18 08:26 Ondansetron HCl (Zofran) 4 mg Q6H PRN IVP Nausea & Vomiting 11/13/18 16:30 12/12/18 22:29 Polyethylene Glycol (Miralax) 17 gm DAILYPRN PRN ORAL Constipation 11/13/18 16:30 12/12/18 16:29 Temazepam (Restoril) 15 mg HSPRN PRN ORAL Insomnia 11/13/18 21:00 11/19/18 20:59 Allergies: Coded Allergies: NO KNOWN DRUG ALLERGIES (Verified Allergy, Unknown, 06/09/17) ROS Limited/Unobtainable: No Constitutional: Reports: weakness HEENT: Reports: no symptoms Cardiovascular: Reports: no symptoms Respiratory: Reports: no symptoms Gastrointestinal/Abdominal: Reports: no symptoms Genitourinary: Reports: no symptoms Neurologic/Psychiatric: Reports: no symptoms Subjective 73 YO F admitted with generalized weakness and vertigo. Cover for Int Douglas-DR Mckeon. Await MRI brain Objective Last Vital Signs Date Time Temp Pulse Resp B/P (MAP) Pulse Ox O2 Delivery O2 Flow Rate FiO2 11/15/18 12:00 97.9 65 18 119/66 (83) 96 11/15/18 11:15 Room Air 21 Laboratory Tests Test 11/15/18 05:30 White Blood Count 5.5 K/UL (4.8-10.8) Red Blood Count 3.09 M/UL (4.20-5.40) L Hemoglobin 9.3 G/DL (12.0-16.0) L Hematocrit 27.3 % (37.0-47.0) L Mean Corpuscular Volume 89 FL (80-99) Mean Corpuscular Hemoglobin 30.3 PG (27.0-31.0) Mean Corpuscular Hemoglobin Concent 34.2 G/DL (32.0-36.0) Red Cell Distribution Width 12.9 % (11.6-14.8) Platelet Count 198 K/UL (150-450) Mean Platelet Volume 6.9 FL (6.5-10.1) Neutrophils (%) (Auto) 54.8 % (45.0-75.0) Lymphocytes (%) (Auto) 28.9 % (20.0-45.0) Monocytes (%) (Auto) 10.2 % (1.0-10.0) H Eosinophils (%) (Auto) 5.3 % (0.0-3.0) H Basophils (%) (Auto) 0.8 % (0.0-2.0) Sodium Level 143 MMOL/L (136-145) Potassium Level 4.2 MMOL/L (3.5-5.1) Chloride Level 111 MMOL/L (98-107) H Carbon Dioxide Level 21 MMOL/L (21-32) Anion Gap 11 mmol/L (5-15) Blood Urea Nitrogen 36 mg/dL (7-18) H Creatinine 1.4 MG/DL (0.55-1.30) H Estimat Glomerular Filtration Rate mL/min (>60) Glucose Level 131 MG/DL (74-106) H Calcium Level 8.4 MG/DL (8.5-10.1) L Microbiology Date/Time Source Procedure Growth Status 11/12/18 17:35 Blood Blood Culture - Preliminary NO GROWTH AFTER 48 HOURS Resulted 11/12/18 17:20 Blood Blood Culture - Preliminary Resulted 11/12/18 17:30 Nasal Nares Right MRSA Culture - Final NO METHICILLIN RESISTANT STAPH AUREUS... Complete 11/12/18 18:00 Urine,Clean Catch Urine Culture - Final Escherichia Coli - Esbl Complete 11/12/18 17:30 Rectum VRE Culture - Final NO VANCOMYCIN RESISTANT ENTEROCOCCUS ... Complete 11/12/18 17:30 Rectum - Final NO CARBAPENEM-RESISTANT ENTEROBACTERI... Complete Intake and Output 11/14/18 11/15/18 19:00 07:00 Intake Total 260 ml 610.0 ml Balance 260 ml 610.0 ml Intake Oral 260 ml 500 ml IV Total 110.0 ml # Voids 3 2 Objective PHYSICAL EXAMINATION: GENERAL: The patient is a well-developed and well-nourished female, in no apparent distress. HEENT: Eyes, pupils are equal and responsive to light and accommodation. Extraocular movements are intact. NECK: Supple without lymphadenopathy. CHEST: Lungs are clear to auscultation bilaterally without wheezes or rales. CARDIOVASCULAR: Tachycardic, regular rhythm. S1 and S2 are normal without murmurs, rubs, or gallops. ABDOMEN: Soft, nontender, and nondistended. Positive bowel sounds. No evidence of hepatosplenomegaly. Currently, no rebound or guarding noted. EXTREMITIES: Negative for clubbing, cyanosis, or edema. RECTAL/GENITAL: Refused. NEUROLOGIC: Cranial nerves II through XII are grossly intact without focal deficits. Motor strength is 5/5 bilaterally. Deep tendon reflexes are 2+ plantar. Assessment/Plan Assessment/Plan ASSESSMENT: This is a 73-year-old female. 1. Small bowel obstruction. 2. Generalized weakness. 3. Vertigo. 4. Diabetes type 2. 5. Hypertension. 6. Hypercholesterolemia. 7. Anemia. 8. History of alcohol dependence. TREATMENT: 1. Small bowel obstruction. A Surgery consultation has been obtained with Dr. Hare. We will follow recommendations of Surgery. 2. Generalized weakness/vertigo. This may be secondary to diabetes versus acute stroke. An MRI scan of the brain is pending. 3. Diabetes type 2. A NovoLog sliding scale has been instituted. 4. Hypertension. Continue lisinopril as above. 5. Hypercholesterolemia. Continue atorvastatin as above. 6. Alcohol dependence/withdrawal. 7. Severe anemia. This was secondary to pessary versus foreign object in the vagina. The patient's current hemoglobin and hematocrit are stable. Rhys Yousif MD Nov 15, 2018 17:04
--- NOTE | 2018-11-15 19:27 | NUR ---
HAND-OFF: Report given to Marcy Art.
--- NOTE | 2018-11-15 19:32 | NUR ---
NURSE NOTES: Patient not following commands. Patient high risk for fall. Patient has unsteady gait. Patient agitated and restless. Dr. Yousif contacted. New order received for bilateral soft wrist restraints.
--- NOTE | 2018-11-15 19:40 | NUR ---
NURSE NOTES: Received pt from MARYANNE Shaikh. Pt awake, alert, and talkative. Bed in lowest position. Call light within reach. Restraints on bilateral upper extremities. Will continue to monitor.
[2018-11-15 20:00] VITALS: BP 140/90
--- NOTE | 2018-11-15 23:45 | Consultation ---
DATE OF CONSULTATION: 11/15/2018 UROLOGY CONSULTATION CONSULTING PHYSICIAN: Butch Issa M.D. ATTENDING/REFERRING PHYSICIAN: Oscar Quezada M.D. CHIEF COMPLAINT/HISTORY OF PRESENT ILLNESS: I was asked by Dr. Quezada to evaluate this unfortunate 73-year-old female regarding a history of left hydronephrosis with renal atrophy on the same side. This was noted on imaging. Briefly, the patient was admitted with a history of weakness and dizziness. Apparently, she was also here in July of this year for vaginal bleeding and anemia. At that time, she had a pessary and a foreign object removed from her vagina and was transfused. The patient was admitted to the hospital and a CT scan revealed chronic left hydronephrosis without hydroureter. Given the above, I was asked to evaluate the patient. The patient is elderly and confused and is unable to answer many questions. Most of the information is gathered from the chart. PAST MEDICAL HISTORY: 1. Diabetes mellitus. 2. Hypertension. 3. Hypercholesterolemia. 4. Anemia. 5. Alcohol dependence. 6. Cystocele with pessary placement. MEDICATIONS: Please see the chart for current medications administration details. ALLERGIES: No known drug allergies. SOCIAL HISTORY: Unremarkable for current tobacco use, but the patient apparently used to smoke. The patient has a history of alcohol use. FAMILY HISTORY: Unavailable/noncontributory. REVIEW OF SYSTEMS: A 14-system review of systems was somewhat limited as the patient has difficulty cooperating with questioning, but appeared to be notable for weakness and some dizziness. PHYSICAL EXAMINATION: GENERAL: The patient is an elderly female, awake and alert. Appears oriented. No obvious distress. HEENT: NC/AT. EOMI. Oropharynx clear. NECK: Supple. Full range of motion. CHEST: Within normal limits. ABDOMEN: Soft, nontender, nondistended. EXTREMITIES: Warm, well perfused. No cyanosis, clubbing, or edema. BACK: No CVA tenderness to percussion. NEUROLOGIC: Grossly nonfocal. LABORATORY DATA: Sodium 143, potassium 4.2, chloride 111, bicarb 21, BUN 36, creatinine 1.4, glucose 131, calcium 8.4. LFTs within normal limits. CEA 2. White blood cell count 5.5, hematocrit 27.3, platelets 198. PT, PTT, INR within normal limits. Urinalysis, specific gravity 1.010, pH 5.0. Dip test notable for 3+ protein, 4+ occult blood, 3+ leukocyte esterase. Microanalysis with 5 to 10 white and red blood cells per high-power field and many bacteria seen. Urine culture with ESBL E. coli. Blood cultures negative. DIAGNOSTIC IMAGING: CT scan of the abdomen and pelvis reveals atrophic left kidney with minimally diminished nephrogram. There is [id number] left hydronephrosis demonstrating interval progression since July of 2018. Findings suggest obstruction at the level of the ureteropelvic junction. There is no obstructing calculus or hydroureter noted. Other findings as noted. ASSESSMENT AND PLAN: In summary, the patient is a 73-year-old female with a history of weakness and dizziness and anemia. She is admitted to the hospital for management of these issues. Workup with a CT scan revealed left hydronephrosis with an atrophic kidney. This was also noted on a previous CT scan 3 months ago, but appears to be slightly increased versus prior. Physical exam is unremarkable. Laboratory data is notable for borderline creatinine of 1.4 and urinary tract infection. The patient has received ertapenem and Zosyn for antibiotic coverage. I reviewed the patient's previous imaging at this hospital as well. Apparently, the left-sided hydronephrosis was present 3 years ago on an MRI and was noted in the report. It is uncertain as to whether this patient has had any instrumentation of the ureter on that side and has developed a scar or stricture or whether this represents some congenital UPJ obstruction, but either way, it appears that there is some atrophy of the kidney that has occurred from the chronic outlet obstruction. Given that her renal function is still relatively normal and that her other kidney does not display any evidence of obstruction, hydronephrosis, or loss of function, I would defer any intervention for this obstruction at this time. The patient can follow up as an outpatient with the urologist to monitor the same and determine whether or not stenting or pyloroplasty would be appropriate given her clinical situation and scenario. Thank you for allowing to participate in the care of this unfortunate lady. Please do not hesitate to contact me for any questions that you may further have regarding her care. I will see her with you as needed. Butch Issa M.D. DR: CIRO JOB#: [id number] CC:
[2018-11-16] VITALS: BP 154/72
--- NOTE | 2018-11-16 03:36 | NUR ---
NURSE NOTES: Received report from MARYANNE Art. Patient stable. In bilateral soft wrist restraints. On room air. No signs of distress or labored breathing. IV intact, patent, and saline locked. Bed in lowest position with call light in reach. Will continue with plan of care.
--- NOTE | 2018-11-16 03:37 | NUR ---
HAND-OFF: Report given to MARYANNE Vaughn. Pt stable.
[2018-11-16 04:00] VITALS: BP 151/72
[2018-11-16] MEDS: NovoLOG Insulin Flexpen SUBQ SCH ×4 (06:18→21:21)
[2018-11-16 06:54] LABS: CREATINE KINASE 212 U/L (26-308)
--- NOTE | 2018-11-16 07:42 | NUR ---
HAND-OFF: Report given to Aliza Aguilera RN.
--- NOTE | 2018-11-16 07:47 | NUR ---
NURSE NOTES: Received report from MARYANNE Kay. Patient in bed resting no active s/s cardiac, respiratory distress noticed at this time. Patient on room air, AOx2. Endorsed need of OB stool collection. Patient on bilateral soft wrist restraints, cap refill <3 sec, able to move. IV on right FA 22G, asymptomatic, patent, intact. Bed in lowest position, side rails upx3, call light within reach. Will continue to monitor.
[2018-11-16 08:00] VITALS: BP 140/98
[2018-11-16] MEDS: OLANZapine 2.5mg tab ORAL SCH ×2 (08:49→17:30)
[2018-11-16] MEDS: Heparin 5000 units/ml inj SUBQ SCH ×2 (08:51→21:22)
--- NOTE | 2018-11-16 09:25 | NUR ---
NURSE NOTES: Left message on Dr. Yousif regarding MRI department unable to do MRI brain twice even with sedation. Awaiting for callback. Will continue to monitor.
--- NOTE | 2018-11-16 10:33 | Pulmonology Progress Note ---
Assessment/Plan Problems: (1) MDRO (multiple drug resistant organisms) resistance (2) ATN (acute tubular necrosis) (3) Urinary tract infection (4) Acute metabolic encephalopathy (5) Hydronephrosis (6) Umbilical hernia (7) Diabetes mellitus Assessment/Plan GI/surgery evaluation appreciated urine has MDR ecoli repeat Urine analysis and c/s iv abx iv fluids check electrolytes sliding scale pt/ot Subjective ROS Limited/Unobtainable: No Constitutional: Reports: no symptoms HEENT: Repors: no symptoms Allergies: Coded Allergies: NO KNOWN DRUG ALLERGIES (Verified Allergy, Unknown, 06/09/17) Objective Last 24 Hour Vital Signs Date Time Temp Pulse Resp B/P (MAP) Pulse Ox O2 Delivery O2 Flow Rate FiO2 11/16/18 09:00 Room Air 11/16/18 08:49 71 140/98 11/16/18 08:00 98.0 71 18 140/98 (112) 98 11/16/18 04:00 97.4 65 18 151/72 (98) 95 11/16/18 00:00 98.2 66 18 154/72 (99) 96 11/15/18 21:13 67 140/90 11/15/18 21:00 Room Air 11/15/18 20:00 98.3 67 18 140/90 (107) 97 11/15/18 16:00 98.2 61 18 157/66 (96) 97 11/15/18 12:00 97.9 65 18 119/66 (83) 96 11/15/18 11:15 68 18 94 Room Air 21 Intake and Output 11/15/18 11/16/18 18:59 06:59 Intake Total 720 ml Balance 720 ml Intake Oral 720 ml # Voids 3 3 General Appearance: WD/WN HEENT: normocephalic, atraumatic Respiratory/Chest: chest wall non-tender, lungs clear Cardiovascular: normal peripheral pulses, normal rate Abdomen: normal bowel sounds, soft, non tender Genitourinary: normal external genitalia Extremities: no clubbing Skin: no rash Laboratory Tests 11/16/18 06:00: Total Creatine Kinase 212 Current Medications Medications (Trade) Dose Ordered Sig/Kannan Route PRN Reason Start Time Stop Time Status Last Admin Dose Admin Acetaminophen (Tylenol) 650 mg Q4H PRN ORAL fever 11/13/18 16:30 12/12/18 16:29 Albuterol/ Ipratropium (Albuterol/ Ipratropium) 3 ml Q4H PRN HHN Shortness of Breath 11/13/18 17:00 11/18/18 16:59 Carvedilol (Coreg) 3.125 mg EVERY 12 HOURS ORAL 11/13/18 21:00 12/12/18 22:59 11/16/18 08:49 Clopidogrel Bisulfate (Plavix) 75 mg DAILY ORAL 11/14/18 09:00 12/13/18 08:59 11/16/18 08:49 Daptomycin 450 mg/ Sodium Chloride 55 ml @ 100 mls/hr Q48H IV 11/15/18 16:30 11/22/18 16:29 11/15/18 17:57 Dextrose (Dextrose 50%) 25 ml Q30M PRN IV Hypoglycemia 11/13/18 16:30 12/13/18 16:29 Dextrose (Dextrose 50%) 50 ml Q30M PRN IV Hypoglycemia 11/13/18 16:30 12/13/18 16:29 Ertapenem 0.5 gm/ Sodium Chloride 55 ml @ 110 mls/hr Q24H IVPB 11/15/18 16:00 11/20/18 15:59 11/15/18 16:08 Gabapentin (Neurontin) 300 mg BEDTIME ORAL 11/13/18 21:00 12/12/18 22:59 11/15/18 21:13 Heparin Sodium (Porcine) (Heparin 5000 units/ml) 5,000 units EVERY 12 HOURS SUBQ 11/13/18 21:00 12/13/18 08:59 11/16/18 08:51 Insulin Aspart (NovoLOG) BEFORE MEALS AND HS SUBQ 11/13/18 16:30 12/13/18 06:29 11/16/18 06:18 Lorazepam (Ativan 2mg/ml 1ml) 1 mg ONCE PRN IV prior to brain MRI 11/15/18 09:45 11/16/18 23:59 11/15/18 10:31 Morphine Sulfate (Morphine Sulfate) 2 mg Q4H PRN IVP Moderate Pain (Pain Scale 4-6) 11/13/18 16:30 11/19/18 16:29 11/15/18 09:20 Nitroglycerin (Ntg) 0.4 mg Q5M PRN SL Prn Chest Pain 11/13/18 16:15 12/12/18 22:29 Olanzapine (ZyPREXA) 2.5 mg BID ORAL 11/13/18 18:00 12/13/18 08:59 11/16/18 08:49 Ondansetron HCl (Zofran) 4 mg Q6H PRN IVP Nausea & Vomiting 11/13/18 16:30 12/12/18 22:29 Polyethylene Glycol (Miralax) 17 gm DAILYPRN PRN ORAL Constipation 11/13/18 16:30 12/12/18 16:29 Temazepam (Restoril) 15 mg HSPRN PRN ORAL Insomnia 11/13/18 21:00 11/19/18 20:59 Oscar Quezada MD Nov 16, 2018 10:33
--- NOTE | 2018-11-16 10:39 | NUR ---
*-* INSURANCE *-* UPDATED CLINICALS HAVE BEEN FAXED TO: [employer] [facility]: [place] FAX: [phone] (SEND CLINICALS)
[2018-11-16 12:00] VITALS: BP 138/62
--- NOTE | 2018-11-16 12:30 | Internal Med Progress Note ---
Subjective Date of Service: Nov 16, 2018 Physician Name Rhys Yousif Attending Physician Ari Mckeon MD Current Medications Medications (Trade) Dose Ordered Sig/Kannan Route PRN Reason Start Time Stop Time Status Last Admin Dose Admin Acetaminophen (Tylenol) 650 mg Q4H PRN ORAL fever 11/13/18 16:30 12/12/18 16:29 Albuterol/ Ipratropium (Albuterol/ Ipratropium) 3 ml Q4H PRN HHN Shortness of Breath 11/13/18 17:00 11/18/18 16:59 Carvedilol (Coreg) 3.125 mg EVERY 12 HOURS ORAL 11/13/18 21:00 12/12/18 22:59 11/16/18 08:49 Clopidogrel Bisulfate (Plavix) 75 mg DAILY ORAL 11/14/18 09:00 12/13/18 08:59 11/16/18 08:49 Daptomycin 450 mg/ Sodium Chloride 55 ml @ 100 mls/hr Q48H IV 11/15/18 16:30 11/22/18 16:29 11/15/18 17:57 Dextrose (Dextrose 50%) 25 ml Q30M PRN IV Hypoglycemia 11/13/18 16:30 12/13/18 16:29 Dextrose (Dextrose 50%) 50 ml Q30M PRN IV Hypoglycemia 11/13/18 16:30 12/13/18 16:29 Ertapenem 0.5 gm/ Sodium Chloride 55 ml @ 110 mls/hr Q24H IVPB 11/15/18 16:00 11/20/18 15:59 11/15/18 16:08 Gabapentin (Neurontin) 300 mg BEDTIME ORAL 11/13/18 21:00 12/12/18 22:59 11/15/18 21:13 Heparin Sodium (Porcine) (Heparin 5000 units/ml) 5,000 units EVERY 12 HOURS SUBQ 11/13/18 21:00 12/13/18 08:59 11/16/18 08:51 Insulin Aspart (NovoLOG) BEFORE MEALS AND HS SUBQ 11/13/18 16:30 12/13/18 06:29 11/16/18 06:18 Lorazepam (Ativan 2mg/ml 1ml) 1 mg ONCE PRN IV prior to brain MRI 11/15/18 09:45 11/16/18 23:59 11/15/18 10:31 Morphine Sulfate (Morphine Sulfate) 2 mg Q4H PRN IVP Moderate Pain (Pain Scale 4-6) 11/13/18 16:30 11/19/18 16:29 11/15/18 09:20 Nitroglycerin (Ntg) 0.4 mg Q5M PRN SL Prn Chest Pain 11/13/18 16:15 12/12/18 22:29 Olanzapine (ZyPREXA) 2.5 mg BID ORAL 11/13/18 18:00 12/13/18 08:59 11/16/18 08:49 Ondansetron HCl (Zofran) 4 mg Q6H PRN IVP Nausea & Vomiting 11/13/18 16:30 12/12/18 22:29 Polyethylene Glycol (Miralax) 17 gm DAILYPRN PRN ORAL Constipation 11/13/18 16:30 12/12/18 16:29 Temazepam (Restoril) 15 mg HSPRN PRN ORAL Insomnia 11/13/18 21:00 11/19/18 20:59 Allergies: Coded Allergies: NO KNOWN DRUG ALLERGIES (Verified Allergy, Unknown, 06/09/17) ROS Limited/Unobtainable: No Constitutional: Reports: no symptoms HEENT: Reports: no symptoms Cardiovascular: Reports: no symptoms Respiratory: Reports: no symptoms Gastrointestinal/Abdominal: Reports: no symptoms Genitourinary: Reports: no symptoms Neurologic/Psychiatric: Reports: no symptoms Subjective 73 YO F admitted with generalized weakness and vertigo. Cover for Int Douglas-DR Mckeon. Unable to tolerate MRI of the brain, despite sedation Objective Last Vital Signs Date Time Temp Pulse Resp B/P (MAP) Pulse Ox O2 Delivery O2 Flow Rate FiO2 11/16/18 12:00 97.8 62 18 138/62 (87) 100 11/16/18 09:00 Room Air 11/15/18 11:15 21 Laboratory Tests Test 11/16/18 06:00 Total Creatine Kinase 212 U/L (26-308) Intake and Output 11/15/18 11/16/18 19:00 07:00 Intake Total 720 ml Balance 720 ml Intake Oral 720 ml # Voids 3 3 Objective PHYSICAL EXAMINATION: GENERAL: The patient is a well-developed and well-nourished female, in no apparent distress. HEENT: Eyes, pupils are equal and responsive to light and accommodation. Extraocular movements are intact. NECK: Supple without lymphadenopathy. CHEST: Lungs are clear to auscultation bilaterally without wheezes or rales. CARDIOVASCULAR: Tachycardic, regular rhythm. S1 and S2 are normal without murmurs, rubs, or gallops. ABDOMEN: Soft, nontender, and nondistended. Positive bowel sounds. No evidence of hepatosplenomegaly. Currently, no rebound or guarding noted. EXTREMITIES: Negative for clubbing, cyanosis, or edema. RECTAL/GENITAL: Refused. NEUROLOGIC: Cranial nerves II through XII are grossly intact without focal deficits. Motor strength is 5/5 bilaterally. Deep tendon reflexes are 2+ plantar. Assessment/Plan Assessment/Plan ASSESSMENT: This is a 73-year-old female. 1. Small bowel obstruction. 2. Generalized weakness. 3. Vertigo. 4. Diabetes type 2. 5. Hypertension. 6. Hypercholesterolemia. 7. Anemia. 8. History of alcohol dependence. TREATMENT: 1. Small bowel obstruction. A Surgery consultation has been obtained with Dr. Hare. No surgical procedures planned per recommendations of Surgery. 2. Generalized weakness/vertigo. This may be secondary to diabetes versus acute stroke. UNABLE TO TOLERATE MRI of the brain. 3. Diabetes type 2. A NovoLog sliding scale has been instituted. 4. Hypertension. Continue lisinopril as above. 5. Hypercholesterolemia. Continue atorvastatin as above. 6. Alcohol dependence/withdrawal. 7. Severe anemia. This was secondary to pessary versus foreign object in the vagina. The patient's current hemoglobin and hematocrit are stable. Rhys Yousif MD Nov 16, 2018 12:30
--- NOTE | 2018-11-16 13:39 | NUR ---
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
--- NOTE | 2018-11-16 13:48 | Surgery Progress Note ---
Surgery Progress Note Subjective Symptoms: improved, pain absent, tolerating diet, passing flatus, BM Objective Last 24 Hour Vital Signs Date Time Temp Pulse Resp B/P (MAP) Pulse Ox O2 Delivery O2 Flow Rate FiO2 11/16/18 12:00 97.8 62 18 138/62 (87) 100 11/16/18 09:00 Room Air 11/16/18 08:49 71 140/98 11/16/18 08:00 98.0 71 18 140/98 (112) 98 11/16/18 06:55 60 16 96 Room Air 21 11/16/18 04:00 97.4 65 18 151/72 (98) 95 11/16/18 00:00 98.2 66 18 154/72 (99) 96 11/15/18 21:13 67 140/90 11/15/18 21:00 Room Air 11/15/18 20:00 98.3 67 18 140/90 (107) 97 11/15/18 16:00 98.2 61 18 157/66 (96) 97 I&O Intake and Output 11/15/18 11/16/18 19:00 07:00 Intake Total 720 ml Balance 720 ml Intake Oral 720 ml # Voids 3 3 Cardiovascular: RSR Respiratory: clear Abdomen: soft, flat, non-tender, present bowel sounds Extremities: no edema, no tenderness, no cyanosis Laboratory Tests Test 11/16/18 06:00 Total Creatine Kinase 212 U/L (26-308) Plan Problems: (1) Urinary tract infection (2) Hydronephrosis (3) Umbilical hernia (4) Partial small bowel obstruction Assessment & Plan: 83-year-old female who presented with generalized weakness and feeling unwell. On further work-up was identified to have a ventral hernia with bowel contents. Patient without obstructive symptoms. No nausea vomiting fever or chills. Labs okay. Examination benign with soft abdomen that is nontender nondistended and positive bowel sounds. Hernia cannot be palpated and potentially reduced already but cannot identify fascial defect given the amount of adipose tissue. Patient states that last bowel movement was yesterday and has not had one today. States she is able to tolerate oral diet. kub okay exam stable No acute surgical intervention planned. Okay for diet as tolerated . Ambulate and out of bed. Rx as written. ventral hernia repair elective outpatient Thank you for this consultation we will follow with recommendations (5) Generalized weakness (6) Acute metabolic encephalopathy (7) Diabetes mellitus (8) Hypertension, uncontrolled (9) Hypercholesterolemia (10) Alcohol dependence (11) Incontinence Joseph Hare Nov 16, 2018 13:48
--- NOTE | 2018-11-16 15:19 | NUR ---
NURSE NOTES: Patient observed on the floor, out of bilateral soft wrist restraints. Floor was wet with patient's urine. Patient able to walk, and talk, AOx2, confuse as baseline, denies pain at this time, no visible injury noticed at this time.
--- NOTE | 2018-11-16 15:20 | NUR ---
NURSE NOTES: Paged Dr. Yousif regarding patient fell. Awaiting for callback. Will continue to follow up.
--- NOTE | 2018-11-16 15:22 | NUR ---
NURSE NOTES: Dr. Quezada made aware patient fell, per Dr. Quezada, CT head. Order noted, entered, carried out. Will continue to monitor.
--- NOTE | 2018-11-16 15:50 | NUR ---
NURSE NOTES: Received phone call from Dr. Yousif made aware patient observed on floor, no injury noticed. Per Dr. Yousif, CT head. Order noted, entered, carried out.
[2018-11-16 16:00] VITALS: BP 120/82
--- NOTE | 2018-11-16 16:22 | Infectious Diseases Prog Note ---
Assessment/Plan Assessment/Plan Assessment/Plan: 73 yo female with PMHx of HTN and DM who presented ot the ED on 11/12/18 with one day of weakness. UTI UCx 11/12/18- esbl e.COLI (s zOSYN, tigecycline, ertap) No Fever No leukcoytosis Gram positive bacteremia- likely contaminant -11/12 Bcx 1/4 CONS; 11/15 Bcx p AMOS Periumbilical hernia, probable early/ partial SBO A CT scan (11/12/18) of the abd showed early or partal SBO along with periumbilical hernia. The patient how ever has been tolerating PO diet. Afebrile no leukocytosis HTN DM PLAN: - Cont Ertapenem #2 (abx d #3/5-7)for eSBL UTI given AMOS -Continue Daptomycin #2 for gram positive bacteremia pending rpeat Bcx -11/15 SP Zosyn #2, Vancomycin #2 -11/14 SP Cefepime #2 - 11/13/18 SP Flagyl #1 - f/u urine Cx - Monitor CBC and Temps -f/u repeat Bcx x2 Thank you for this consult. We will continue to follow the patient during this hospitalization. Subjective Allergies: Coded Allergies: NO KNOWN DRUG ALLERGIES (Verified Allergy, Unknown, 06/09/17) Subjective afebrile no leukocytosis repaet Bcx p Objective Vital Signs Last 24 Hour Vital Signs Date Time Temp Pulse Resp B/P (MAP) Pulse Ox O2 Delivery O2 Flow Rate FiO2 11/16/18 16:00 98.1 70 18 120/82 (95) 98 11/16/18 12:00 97.8 62 18 138/62 (87) 100 11/16/18 09:00 Room Air 11/16/18 08:49 71 140/98 11/16/18 08:00 98.0 71 18 140/98 (112) 98 11/16/18 06:55 60 16 96 Room Air 21 11/16/18 04:00 97.4 65 18 151/72 (98) 95 11/16/18 00:00 98.2 66 18 154/72 (99) 96 11/15/18 21:13 67 140/90 11/15/18 21:00 Room Air 11/15/18 20:00 98.3 67 18 140/90 (107) 97 Height (Feet): 5 Height (Inches): 4.00 Weight (Pounds): 149 Objective Gen: NAD HEENT: NCAT, MMM, EOMI, PERRL, No Oral lesion, no scleral icterus NECK: full range of motion, supple, no meningismus, No LAD, No JVD LUNGS: CTAB, No W/C, No Accessory muscle use CARDS: RRR, S1, S2, No M/R/G, ABD: Soft, NT, ND, No R/G, + BS, No HSM, No Masses : Deferred Ext: C/C/E, Pulses 2+ B/L (DP, Rad): NEURO: A/O x 4, Strength and Sensation Grossly intact PSYCH: Normal mood and affect SKIN: Warm/dry, No rashes Laboratory Tests Test 11/16/18 06:00 Total Creatine Kinase 212 U/L (26-308) Current Medications Medications (Trade) Dose Ordered Sig/Kannan Route PRN Reason Start Time Stop Time Status Last Admin Dose Admin Acetaminophen (Tylenol) 650 mg Q4H PRN ORAL fever 11/13/18 16:30 12/12/18 16:29 Albuterol/ Ipratropium (Albuterol/ Ipratropium) 3 ml Q4H PRN HHN Shortness of Breath 11/13/18 17:00 11/18/18 16:59 Carvedilol (Coreg) 3.125 mg EVERY 12 HOURS ORAL 11/13/18 21:00 12/12/18 22:59 11/16/18 08:49 Clopidogrel Bisulfate (Plavix) 75 mg DAILY ORAL 11/14/18 09:00 12/13/18 08:59 11/16/18 08:49 Daptomycin 450 mg/ Sodium Chloride 55 ml @ 100 mls/hr Q48H IV 11/15/18 16:30 11/22/18 16:29 11/15/18 17:57 Dextrose (Dextrose 50%) 25 ml Q30M PRN IV Hypoglycemia 11/13/18 16:30 12/13/18 16:29 Dextrose (Dextrose 50%) 50 ml Q30M PRN IV Hypoglycemia 11/13/18 16:30 12/13/18 16:29 Ertapenem 0.5 gm/ Sodium Chloride 55 ml @ 110 mls/hr Q24H IVPB 11/15/18 16:00 11/20/18 15:59 11/15/18 16:08 Gabapentin (Neurontin) 300 mg BEDTIME ORAL 11/13/18 21:00 12/12/18 22:59 11/15/18 21:13 Heparin Sodium (Porcine) (Heparin 5000 units/ml) 5,000 units EVERY 12 HOURS SUBQ 11/13/18 21:00 12/13/18 08:59 11/16/18 08:51 Insulin Aspart (NovoLOG) BEFORE MEALS AND HS SUBQ 11/13/18 16:30 12/13/18 06:29 11/16/18 06:18 Lorazepam (Ativan 2mg/ml 1ml) 1 mg ONCE PRN IV prior to brain MRI 11/15/18 09:45 11/16/18 23:59 11/15/18 10:31 Morphine Sulfate (Morphine Sulfate) 2 mg Q4H PRN IVP Moderate Pain (Pain Scale 4-6) 11/13/18 16:30 11/19/18 16:29 11/15/18 09:20 Nitroglycerin (Ntg) 0.4 mg Q5M PRN SL Prn Chest Pain 11/13/18 16:15 12/12/18 22:29 Olanzapine (ZyPREXA) 2.5 mg BID ORAL 11/13/18 18:00 12/13/18 08:59 11/16/18 08:49 Ondansetron HCl (Zofran) 4 mg Q6H PRN IVP Nausea & Vomiting 11/13/18 16:30 12/12/18 22:29 Polyethylene Glycol (Miralax) 17 gm DAILYPRN PRN ORAL Constipation 11/13/18 16:30 12/12/18 16:29 Temazepam (Restoril) 15 mg HSPRN PRN ORAL Insomnia 11/13/18 21:00 11/19/18 20:59 Myriam Mcgill M.D. Nov 16, 2018 16:22
[2018-11-16] MEDS: Ertapenem 0.5 GM in NS 55 ML IVPB SCH (16:44)
--- NOTE | 2018-11-16 16:57 | Diagnostic Imaging Report ---
Indication: Head trauma headache Technique: Contiguous 5 mm thick transaxial imaging of the head obtained in a Siemens Sensation [address] scanner. Soft tissue and bone windows generated. Automatic Exposure Control was utilized. Total Dose length Product (DLP): 1439.[address] Dose Index Volume (CTDIvol): 70.38 mGy Comparison: none Findings: There is mild prominence of the ventricles, basal cisterns, and cerebral sulci consistent with atrophy. Mild, nonspecific, white matter hypoattenuation is noted throughout the brain consistent with chronic small vessel disease. There is no midline shift, edema, acute hemorrhage, mass effect, or abnormal extra-axial fluid collections. Bones are unremarkable. Impression: No acute intracranial bleed, mass effect or edema. Mild atrophy of the brain. Nonspecific white matter hypoattenuation probably due to chronic small vessel disease. The CT scanner at [facility] is accredited by the [employer] and the scans are performed using dose optimization techniques as appropriate to a performed exam including Automatic Exposure control.
--- NOTE | 2018-11-16 17:00 | NUR ---
NURSE NOTES: 1520 Patient VS checked, HR 70, BP 128/82, O2 sat 98% on room air. AOx2, confused as baseline, no acute injury notified, denies pain at this time. Patient able to talk, follow command. 1600 Patient VS checked, HR 75, BP 140/81, O2 sat 96% on room air. AOx2, confused as baseline. Patient able to talk, follow command. 1700 Patient VS checked, HR 74, BP 145/81, O2 sat 95%, on room air. AOx2, confuse as baseline. Patient able to follow command.
[2018-11-16 17:19] LABS: APPEARANCE,URINE SLIGHTLY CLOUDY; BILIRUBIN, URINE NEGATIVE (NEGATIVE); COLOR,URINE PALE YELLOW; GLUCOSE, URINE (UA) NEGATIVE (NEGATIVE); KETONES,URINE NEGATIVE (NEGATIVE); LEUKOCYTE ESTERASE ,URINE NEGATIVE (NEGATIVE); NITRITE,URINE NEGATIVE (NEGATIVE); PH,URINE 6 (4.5-8.0); PROTEIN,URINE 1+ (NEGATIVE); UROBILINOGEN,URINE NORMAL MG/DL (0.0-1.0)
--- NOTE | 2018-11-16 18:00 | NUR ---
NURSE NOTES: When entered patient's room, patient got out of restraints, pulled out IV.
--- NOTE | 2018-11-16 19:20 | NUR ---
HAND-OFF: Report given to MARYANNE Kay.
--- NOTE | 2018-11-16 19:30 | NUR ---
NURSE NOTES: Received report from Aliza Aguilera RN. Patient Armenian speaking. Patient confused. On room air. IV intact, patent, and saline locked. Patient in bilateral soft wrist restraints. Bed in lowest position with side rails up x3. Call light in reach. Will continue with plan of care.
[2018-11-16 20:00] VITALS: BP 145/72
[2018-11-17] VITALS (7 sets, daily range): BP systolic 107–158; BP diastolic 54–76
[2018-11-17] MEDS: Morphine Sulfate 2mg/ml Inj(IV/IM USE ONLY) IVP PRN ×2 (00:11→16:38)
[2018-11-17] MEDS: NovoLOG Insulin Flexpen SUBQ SCH ×4 (06:53→20:40)
--- NOTE | 2018-11-17 07:47 | NUR ---
HAND-OFF: Report given to MARYANNE Gloria.
--- NOTE | 2018-11-17 08:00 | NUR ---
NURSE NOTES: Pt awake alert, no sob. no c/o pain. no distress. call light within reach. bed in lowest position, locked. will monitor.
[2018-11-17] MEDS: OLANZapine 2.5mg tab ORAL SCH ×2 (08:11→17:03)
[2018-11-17] MEDS: Heparin 5000 units/ml inj SUBQ SCH ×2 (08:12→20:31)
[2018-11-17 08:35] LABS: BASOPHILS % (AUTO) 1.1 % (0.0-2.0); EOSINOPHILS % (AUTO) 1.4 % (0.0-3.0); HEMATOCRIT 32.4 % (37.0-47.0); MEAN CORPUSCULAR VOLUME 88 FL (80-99); MONOCYTES % (AUTO) 5.4 % (1.0-10.0); NEUTROPHILS % (AUTO) 69.1 % (45.0-75.0); PLATELET COUNT 267 K/UL (150-450); RED BLOOD COUNT 3.66 M/UL (4.20-5.40); RED CELL DISTRIBUTION WIDTH 12.6 % (11.6-14.8); WHITE BLOOD COUNT 6.8 K/UL (4.8-10.8)
[2018-11-17 09:06] LABS: ALANINE AMINOTRANSFERASE 29 U/L (12-78); ALBUMIN 3.3 G/DL (3.4-5.0); ALBUMIN/GLOBULIN RATIO 0.8 (1.0-2.7); ALKALINE PHOSPHATASE 109 U/L (46-116); ANION GAP 10 mmol/L (5-15); ASPARTATE AMINO TRANSFERASE 28 U/L (15-37); BILIRUBIN,TOTAL 0.3 MG/DL (0.2-1.0); BLOOD UREA NITROGEN 33 mg/dL (7-18); CALCIUM 8.8 MG/DL (8.5-10.1); CARBON DIOXIDE 23 MMOL/L (21-32); CHLORIDE 106 MMOL/L (98-107); CREATININE 1.1 MG/DL (0.55-1.30); PHOSPHORUS 3.9 MG/DL (2.5-4.9); POTASSIUM 4.5 MMOL/L (3.5-5.1); SODIUM 139 MMOL/L (136-145)
--- NOTE | 2018-11-17 11:35 | Infectious Diseases Prog Note ---
Assessment/Plan Assessment/Plan Assessment/Plan: 73 yo female with PMHx of HTN and DM who presented ot the ED on 11/12/18 with one day of weakness. UTI UCx 11/12/18- esbl e.COLI (s zOSYN, tigecycline, ertap) No Fever No leukocytosis Gram positive bacteremia- likely contaminant -11/12 Bcx 1/4 CONS; 11/15 Bcx NTD s/p Fall in hospital -CT head: No acute intracranial bleed, mass effect or edema. Mild atrophy of the brain. Nonspecific white matter hypoattenuation probably due to chronic small vessel disease. AMOS Periumbilical hernia, probable early/ partial SBO A CT scan (11/12/18) of the abd showed early or partal SBO along with periumbilical hernia. The patient how ever has been tolerating PO diet. Afebrile no leukocytosis HTN DM PLAN: - Cont Ertapenem #3 (abx d #4/5-7)for ESBL UTI given AMOS -D/c Daptomycin #3 -11/15 SP Zosyn #2, Vancomycin #2 -11/14 SP Cefepime #2 - 11/13/18 SP Flagyl #1 - f/u urine Cx - Monitor CBC and Temps -f/u repeat Bcx x2 Thank you for this consult. We will continue to follow the patient during this hospitalization. Subjective Allergies: Coded Allergies: NO KNOWN DRUG ALLERGIES (Verified Allergy, Unknown, 06/09/17) Subjective afebrile no leukocytosis repaet Bcx NTD Objective Vital Signs Last 24 Hour Vital Signs Date Time Temp Pulse Resp B/P (MAP) Pulse Ox O2 Delivery O2 Flow Rate FiO2 11/17/18 08:29 Room Air 11/17/18 08:24 67 16 97 Room Air 21 11/17/18 08:11 80 140/70 11/17/18 07:58 97.6 80 18 140/70 (93) 98 11/17/18 04:00 97.6 68 18 157/67 (97) 98 11/17/18 00:00 98.0 76 18 158/76 (103) 96 11/16/18 21:19 78 145/72 11/16/18 21:00 Room Air 11/16/18 20:00 98.2 78 18 145/72 (96) 96 11/16/18 19:45 69 16 97 Room Air 21 11/16/18 16:00 98.1 70 18 120/82 (95) 98 11/16/18 12:00 97.8 62 18 138/62 (87) 100 Height (Feet): 5 Height (Inches): 4.00 Weight (Pounds): 149 Objective Gen: NAD HEENT: NCAT, MMM, EOMI, PERRL, No Oral lesion, no scleral icterus NECK: full range of motion, supple, no meningismus, No LAD, No JVD LUNGS: CTAB, No W/C, No Accessory muscle use CARDS: RRR, S1, S2, No M/R/G, ABD: Soft, NT, ND, No R/G, + BS, No HSM, No Masses : Deferred Ext: C/C/E, Pulses 2+ B/L (DP, Rad): NEURO: A/O x 4, Strength and Sensation Grossly intact PSYCH: Normal mood and affect SKIN: Warm/dry, No rashes Microbiology Date/Time Source Procedure Growth Status 11/15/18 12:35 Blood Blood Culture - Preliminary NO GROWTH AFTER 24 HOURS Resulted 11/15/18 12:20 Blood Blood Culture - Preliminary NO GROWTH AFTER 24 HOURS Resulted 11/16/18 16:40 Urine,Clean Catch Urine Culture - Preliminary NO GROWTH Resulted Laboratory Tests Test 11/16/18 16:40 11/17/18 08:13 Urine Color Pale yellow Urine Appearance Slightly cloudy Urine pH 6 (4.5-8.0) Urine Specific [place] 1.010 (1.005-1.035) Urine Protein 1+ (NEGATIVE) H Urine Glucose (UA) Negative (NEGATIVE) Urine Ketones Negative (NEGATIVE) Urine Blood Negative (NEGATIVE) Urine Nitrite Negative (NEGATIVE) Urine Bilirubin Negative (NEGATIVE) Urine Urobilinogen Normal MG/DL (0.0-1.0) Urine Leukocyte Esterase Negative (NEGATIVE) Urine RBC 0 /HPF (0 - 2) Urine WBC 0-2 /HPF (0 - 2) Urine Squamous Epithelial Cells Moderate /LPF (NONE/OCC) H Urine Bacteria Occasional /HPF (NONE) Urine Mucus Few /LPF (NONE/OCC) H White Blood Count 6.8 K/UL (4.8-10.8) Red Blood Count 3.66 M/UL (4.20-5.40) L Hemoglobin 11.0 G/DL (12.0-16.0) L Hematocrit 32.4 % (37.0-47.0) L Mean Corpuscular Volume 88 FL (80-99) Mean Corpuscular Hemoglobin 30.0 PG (27.0-31.0) Mean Corpuscular Hemoglobin Concent 33.9 G/DL (32.0-36.0) Red Cell Distribution Width 12.6 % (11.6-14.8) Platelet Count 267 K/UL (150-450) Mean Platelet Volume 6.6 FL (6.5-10.1) Neutrophils (%) (Auto) 69.1 % (45.0-75.0) Lymphocytes (%) (Auto) 23.0 % (20.0-45.0) Monocytes (%) (Auto) 5.4 % (1.0-10.0) Eosinophils (%) (Auto) 1.4 % (0.0-3.0) Basophils (%) (Auto) 1.1 % (0.0-2.0) Erythrocyte Sedimentation Rate 75 MM/HR (0-30) H Sodium Level 139 MMOL/L (136-145) Potassium Level 4.5 MMOL/L (3.5-5.1) Chloride Level 106 MMOL/L (98-107) Carbon Dioxide Level 23 MMOL/L (21-32) Anion Gap 10 mmol/L (5-15) Blood Urea Nitrogen 33 mg/dL (7-18) H Creatinine 1.1 MG/DL (0.55-1.30) Estimat Glomerular Filtration Rate mL/min (>60) Glucose Level 165 MG/DL (74-106) H Calcium Level 8.8 MG/DL (8.5-10.1) Phosphorus Level 3.9 MG/DL (2.5-4.9) Magnesium Level 2.2 MG/DL (1.8-2.4) Total Bilirubin 0.3 MG/DL (0.2-1.0) Aspartate Amino Transf (AST/SGOT) 28 U/L (15-37) Alanine Aminotransferase (ALT/SGPT) 29 U/L (12-78) Alkaline Phosphatase 109 U/L (46-116) C-Reactive Protein, Quantitative 1.7 mg/dL (0.00-0.90) H Total Protein 7.4 G/DL (6.4-8.2) Albumin 3.3 G/DL (3.4-5.0) L Globulin 4.1 g/dL Albumin/Globulin Ratio 0.8 (1.0-2.7) L Current Medications Medications (Trade) Dose Ordered Sig/Kannan Route PRN Reason Start Time Stop Time Status Last Admin Dose Admin Acetaminophen (Tylenol) 650 mg Q4H PRN ORAL fever 11/13/18 16:30 12/12/18 16:29 Albuterol/ Ipratropium (Albuterol/ Ipratropium) 3 ml Q4H PRN HHN Shortness of Breath 11/13/18 17:00 11/18/18 16:59 Carvedilol (Coreg) 3.125 mg EVERY 12 HOURS ORAL 11/13/18 21:00 12/12/18 22:59 11/17/18 08:11 Clopidogrel Bisulfate (Plavix) 75 mg DAILY ORAL 11/14/18 09:00 12/13/18 08:59 11/17/18 08:11 Daptomycin 450 mg/ Sodium Chloride 55 ml @ 100 mls/hr Q48H IV 11/15/18 16:30 11/22/18 16:29 11/15/18 17:57 Dextrose (Dextrose 50%) 25 ml Q30M PRN IV Hypoglycemia 11/13/18 16:30 12/13/18 16:29 Dextrose (Dextrose 50%) 50 ml Q30M PRN IV Hypoglycemia 11/13/18 16:30 12/13/18 16:29 Ertapenem 0.5 gm/ Sodium Chloride 55 ml @ 110 mls/hr Q24H IVPB 11/15/18 16:00 11/20/18 15:59 11/16/18 16:44 Gabapentin (Neurontin) 300 mg BEDTIME ORAL 11/13/18 21:00 12/12/18 22:59 11/16/18 21:19 Heparin Sodium (Porcine) (Heparin 5000 units/ml) 5,000 units EVERY 12 HOURS SUBQ 11/13/18 21:00 12/13/18 08:59 11/17/18 08:12 Insulin Aspart (NovoLOG) BEFORE MEALS AND HS SUBQ 11/13/18 16:30 12/13/18 06:29 11/17/18 06:53 Morphine Sulfate (Morphine Sulfate) 2 mg Q4H PRN IVP Moderate Pain (Pain Scale 4-6) 11/13/18 16:30 11/19/18 16:29 11/17/18 00:11 Nitroglycerin (Ntg) 0.4 mg Q5M PRN SL Prn Chest Pain 11/13/18 16:15 12/12/18 22:29 Olanzapine (ZyPREXA) 2.5 mg BID ORAL 11/13/18 18:00 12/13/18 08:59 11/17/18 08:11 Ondansetron HCl (Zofran) 4 mg Q6H PRN IVP Nausea & Vomiting 11/13/18 16:30 12/12/18 22:29 Polyethylene Glycol (Miralax) 17 gm DAILYPRN PRN ORAL Constipation 11/13/18 16:30 12/12/18 16:29 Temazepam (Restoril) 15 mg HSPRN PRN ORAL Insomnia 11/13/18 21:00 11/19/18 20:59 Myriam Mcgill M.D. Nov 17, 2018 11:35
--- NOTE | 2018-11-17 11:56 | NUR ---
*-* INSURANCE *-* UPDATED CLINICALS AND REVIEWS HAVE BEEN FAXED TO: [employer] PRE CERT WAYS OPERATOR: CEHMA FAX: [phone] (SEND CLINICALS)
--- NOTE | 2018-11-17 12:39 | Diagnostic Imaging Report ---
APPROVED REPORT CPT Code: 18171 Vascular Symptoms Dizziness and Vertigo Doppler Spectral Velocity Analysis RightLeft artery. The Doppler spectral flow analysis indicates the degree of stenosis is mild (40%) in the common carotid artery, moderate (50-60%) in the internal carotid artery, and mild (30%) in the external carotid artery. VERTEBRAL- The vertebral artery is patent, without evidence of stenosis or steal. artery. The Doppler spectral flow analysis indicates the degree of stenosis is mild (40%) in the common carotid artery, moderate (50-60%) in the internal carotid artery, and mild (30%) in the external carotid artery. VERTEBRAL- The vertebral artery is patent, without evidence of stenosis or steal. SUBCLAVIANS/VERTEBRALS - Imaging reveals both subclavians and vertebral arteries to be patent, without evidence of stenosis or steal.
--- NOTE | 2018-11-17 13:08 | Pulmonology Progress Note ---
Assessment/Plan Problems: (1) MDRO (multiple drug resistant organisms) resistance (2) ATN (acute tubular necrosis) (3) Urinary tract infection (4) Acute metabolic encephalopathy (5) Hydronephrosis (6) Umbilical hernia (7) Diabetes mellitus Assessment/Plan GI/surgery evaluation appreciated urine has MDR ecoli repeat Urine analysis reviewed, just a few of bacteria are present now in urine iv abx iv fluids by ID check electrolytes social service consult ordered. Last admission, a APS report was filed. sliding scale pt/ot Subjective ROS Limited/Unobtainable: No Constitutional: Reports: no symptoms HEENT: Repors: no symptoms Respiratory: Reports: no symptoms Allergies: Coded Allergies: NO KNOWN DRUG ALLERGIES (Verified Allergy, Unknown, 06/09/17) Objective Last 24 Hour Vital Signs Date Time Temp Pulse Resp B/P (MAP) Pulse Ox O2 Delivery O2 Flow Rate FiO2 11/17/18 12:00 97.6 66 18 107/54 (71) 98 11/17/18 08:29 Room Air 11/17/18 08:24 67 16 97 Room Air 21 11/17/18 08:11 80 140/70 11/17/18 07:58 97.6 80 18 140/70 (93) 98 11/17/18 04:00 97.6 68 18 157/67 (97) 98 11/17/18 00:00 98.0 76 18 158/76 (103) 96 11/16/18 21:19 78 145/72 11/16/18 21:00 Room Air 11/16/18 20:00 98.2 78 18 145/72 (96) 96 11/16/18 19:45 69 16 97 Room Air 21 11/16/18 16:00 98.1 70 18 120/82 (95) 98 Intake and Output 11/16/18 11/17/18 18:59 06:59 Intake Total 1000 ml Balance 1000 ml Intake Oral 1000 ml # Voids 9 3 General Appearance: WD/WN HEENT: normocephalic, atraumatic Respiratory/Chest: chest wall non-tender, lungs clear, normal breath sounds Cardiovascular: normal peripheral pulses, normal rate Abdomen: normal bowel sounds, soft, non tender Genitourinary: normal external genitalia Extremities: no cyanosis Skin: no ulcers Neurologic/Psychiatric: no motor/sensory deficits Lymphatic: no neck adenopathy Musculoskeletal: no effusion Microbiology Date/Time Source Procedure Growth Status 11/15/18 12:35 Blood Blood Culture - Preliminary NO GROWTH AFTER 24 HOURS Resulted 11/15/18 12:20 Blood Blood Culture - Preliminary NO GROWTH AFTER 24 HOURS Resulted 11/16/18 16:40 Urine,Clean Catch Urine Culture - Preliminary NO GROWTH Resulted Laboratory Tests 11/16/18 16:40: Urine Color Pale yellow, Urine Appearance Slightly cloudy, Urine pH 6, Urine Specific [place] 1.010, Urine Protein 1+H, Urine Glucose (UA) Negative, Urine Ketones Negative, Urine Blood Negative, Urine Nitrite Negative, Urine Bilirubin Negative, Urine Urobilinogen Normal, Urine Leukocyte Esterase Negative, Urine RBC 0, Urine WBC 0-2, Urine Squamous Epithelial Cells ModerateH, Urine Bacteria Occasional, Urine Mucus FewH 11/17/18 08:13: White Blood Count 6.8, Red Blood Count 3.66L, Hemoglobin 11.0L, Hematocrit 32.4L , Mean Corpuscular Volume 88, Mean Corpuscular Hemoglobin 30.0, Mean Corpuscular Hemoglobin Concent 33.9, Red Cell Distribution Width 12.6, Platelet Count 267, Mean Platelet Volume 6.6, Neutrophils (%) (Auto) 69.1, Lymphocytes (% ) (Auto) 23.0, Monocytes (%) (Auto) 5.4, Eosinophils (%) (Auto) 1.4, Basophils ( %) (Auto) 1.1, Erythrocyte Sedimentation Rate 75H, Sodium Level 139, Potassium Level 4.5, Chloride Level 106, Carbon Dioxide Level 23, Anion Gap 10, Blood Urea Nitrogen 33H, Creatinine 1.1, Estimat Glomerular Filtration Rate , Glucose Level 165H, Calcium Level 8.8, Phosphorus Level 3.9, Magnesium Level 2.2, Total Bilirubin 0.3, Aspartate Amino Transf (AST/SGOT) 28, Alanine Aminotransferase ( ALT/SGPT) 29, Alkaline Phosphatase 109, C-Reactive Protein, Quantitative 1.7H, Total Protein 7.4, Albumin 3.3L, Globulin 4.1, Albumin/Globulin Ratio 0.8L Current Medications Medications (Trade) Dose Ordered Sig/Kannan Route PRN Reason Start Time Stop Time Status Last Admin Dose Admin Acetaminophen (Tylenol) 650 mg Q4H PRN ORAL fever 11/13/18 16:30 12/12/18 16:29 Albuterol/ Ipratropium (Albuterol/ Ipratropium) 3 ml Q4H PRN HHN Shortness of Breath 11/13/18 17:00 11/18/18 16:59 Carvedilol (Coreg) 3.125 mg EVERY 12 HOURS ORAL 11/13/18 21:00 12/12/18 22:59 11/17/18 08:11 Clopidogrel Bisulfate (Plavix) 75 mg DAILY ORAL 11/14/18 09:00 12/13/18 08:59 11/17/18 08:11 Dextrose (Dextrose 50%) 25 ml Q30M PRN IV Hypoglycemia 11/13/18 16:30 12/13/18 16:29 Dextrose (Dextrose 50%) 50 ml Q30M PRN IV Hypoglycemia 11/13/18 16:30 12/13/18 16:29 Ertapenem 1 gm/ Sodium Chloride 55 ml @ 110 mls/hr Q24H IVPB 11/17/18 16:00 11/22/18 15:59 Gabapentin (Neurontin) 300 mg BEDTIME ORAL 11/13/18 21:00 12/12/18 22:59 11/16/18 21:19 Heparin Sodium (Porcine) (Heparin 5000 units/ml) 5,000 units EVERY 12 HOURS SUBQ 11/13/18 21:00 12/13/18 08:59 11/17/18 08:12 Insulin Aspart (NovoLOG) BEFORE MEALS AND HS SUBQ 11/13/18 16:30 12/13/18 06:29 11/17/18 11:41 Morphine Sulfate (Morphine Sulfate) 2 mg Q4H PRN IVP Moderate Pain (Pain Scale 4-6) 11/13/18 16:30 11/19/18 16:29 11/17/18 00:11 Nitroglycerin (Ntg) 0.4 mg Q5M PRN SL Prn Chest Pain 11/13/18 16:15 12/12/18 22:29 Olanzapine (ZyPREXA) 2.5 mg BID ORAL 11/13/18 18:00 12/13/18 08:59 11/17/18 08:11 Ondansetron HCl (Zofran) 4 mg Q6H PRN IVP Nausea & Vomiting 11/13/18 16:30 12/12/18 22:29 Polyethylene Glycol (Miralax) 17 gm DAILYPRN PRN ORAL Constipation 11/13/18 16:30 12/12/18 16:29 Temazepam (Restoril) 15 mg HSPRN PRN ORAL Insomnia 11/13/18 21:00 11/19/18 20:59 Oscar Quezada MD Nov 17, 2018 13:08
--- NOTE | 2018-11-17 14:06 | NUR ---
Social Service Note HUMBLE spoke with patient's rhonda Dyer [phone] to complete home safety eval. Patient lives at home with dgt Vinita and granddft Manisha. M-F from 8am-2pm patient attends adult day care. Patient's dgt has hired a caregiver from [phone] to provide oversight until family returns from work. Family has seen an increase in confusion with patient. Patient's mother had Alzheimer. Patient has also shown unsteady gait. Patient doesn't receive income due to not being a [place] citizen and not working in the [place]. [facility] at [facility]. Family is requesting SNF placement upon discharge. HUMBLE addressed possible barriers. [facility] is aware if insurance is unable to authorize placement family will need to take patient home. Home Health to be arranged at that time. HUMBLE recommends PT eval and treatment. HUMBLE discussed with Dr. Quezada and CM. Will monitor and follow up a needed.
--- NOTE | 2018-11-17 14:49 | Surgery Progress Note ---
Surgery Progress Note Subjective Additional Comments no acute events. stable. comfortable. Objective Last 24 Hour Vital Signs Date Time Temp Pulse Resp B/P (MAP) Pulse Ox O2 Delivery O2 Flow Rate FiO2 11/17/18 12:00 97.6 66 18 107/54 (71) 98 11/17/18 08:29 Room Air 11/17/18 08:24 67 16 97 Room Air 21 11/17/18 08:11 80 140/70 11/17/18 07:58 97.6 80 18 140/70 (93) 98 11/17/18 04:00 97.6 68 18 157/67 (97) 98 11/17/18 00:00 98.0 76 18 158/76 (103) 96 11/16/18 21:19 78 145/72 11/16/18 21:00 Room Air 11/16/18 20:00 98.2 78 18 145/72 (96) 96 11/16/18 19:45 69 16 97 Room Air 21 11/16/18 16:00 98.1 70 18 120/82 (95) 98 I&O Intake and Output 11/16/18 11/17/18 19:00 07:00 Intake Total 1000 ml Balance 1000 ml Intake Oral 1000 ml # Voids 9 3 Cardiovascular: RSR Respiratory: clear Abdomen: soft, non-tender, present bowel sounds, non-distended Extremities: no tenderness, no cyanosis Laboratory Tests Test 11/16/18 16:40 11/17/18 08:13 Urine Color Pale yellow Urine Appearance Slightly cloudy Urine pH 6 (4.5-8.0) Urine Specific [place] 1.010 (1.005-1.035) Urine Protein 1+ (NEGATIVE) H Urine Glucose (UA) Negative (NEGATIVE) Urine Ketones Negative (NEGATIVE) Urine Blood Negative (NEGATIVE) Urine Nitrite Negative (NEGATIVE) Urine Bilirubin Negative (NEGATIVE) Urine Urobilinogen Normal MG/DL (0.0-1.0) Urine Leukocyte Esterase Negative (NEGATIVE) Urine RBC 0 /HPF (0 - 2) Urine WBC 0-2 /HPF (0 - 2) Urine Squamous Epithelial Cells Moderate /LPF (NONE/OCC) H Urine Bacteria Occasional /HPF (NONE) Urine Mucus Few /LPF (NONE/OCC) H White Blood Count 6.8 K/UL (4.8-10.8) Red Blood Count 3.66 M/UL (4.20-5.40) L Hemoglobin 11.0 G/DL (12.0-16.0) L Hematocrit 32.4 % (37.0-47.0) L Mean Corpuscular Volume 88 FL (80-99) Mean Corpuscular Hemoglobin 30.0 PG (27.0-31.0) Mean Corpuscular Hemoglobin Concent 33.9 G/DL (32.0-36.0) Red Cell Distribution Width 12.6 % (11.6-14.8) Platelet Count 267 K/UL (150-450) Mean Platelet Volume 6.6 FL (6.5-10.1) Neutrophils (%) (Auto) 69.1 % (45.0-75.0) Lymphocytes (%) (Auto) 23.0 % (20.0-45.0) Monocytes (%) (Auto) 5.4 % (1.0-10.0) Eosinophils (%) (Auto) 1.4 % (0.0-3.0) Basophils (%) (Auto) 1.1 % (0.0-2.0) Erythrocyte Sedimentation Rate 75 MM/HR (0-30) H Sodium Level 139 MMOL/L (136-145) Potassium Level 4.5 MMOL/L (3.5-5.1) Chloride Level 106 MMOL/L (98-107) Carbon Dioxide Level 23 MMOL/L (21-32) Anion Gap 10 mmol/L (5-15) Blood Urea Nitrogen 33 mg/dL (7-18) H Creatinine 1.1 MG/DL (0.55-1.30) Estimat Glomerular Filtration Rate mL/min (>60) Glucose Level 165 MG/DL (74-106) H Calcium Level 8.8 MG/DL (8.5-10.1) Phosphorus Level 3.9 MG/DL (2.5-4.9) Magnesium Level 2.2 MG/DL (1.8-2.4) Total Bilirubin 0.3 MG/DL (0.2-1.0) Aspartate Amino Transf (AST/SGOT) 28 U/L (15-37) Alanine Aminotransferase (ALT/SGPT) 29 U/L (12-78) Alkaline Phosphatase 109 U/L (46-116) C-Reactive Protein, Quantitative 1.7 mg/dL (0.00-0.90) H Total Protein 7.4 G/DL (6.4-8.2) Albumin 3.3 G/DL (3.4-5.0) L Globulin 4.1 g/dL Albumin/Globulin Ratio 0.8 (1.0-2.7) L Plan Problems: (1) Urinary tract infection (2) Hydronephrosis (3) Umbilical hernia (4) Partial small bowel obstruction Assessment & Plan: 83-year-old female who presented with generalized weakness and feeling unwell. On further work-up was identified to have a ventral hernia with bowel contents. Patient without obstructive symptoms. No nausea vomiting fever or chills. Labs okay. Examination benign with soft abdomen that is nontender nondistended and positive bowel sounds. Hernia cannot be palpated and potentially reduced already but cannot identify fascial defect given the amount of adipose tissue. Patient states that last bowel movement was yesterday and has not had one today. States she is able to tolerate oral diet. kub okay exam stable No acute surgical intervention planned. Okay for diet as tolerated . Ambulate and out of bed. Rx as written. ventral hernia repair elective outpatient Thank you for this consultation we will follow with recommendations (5) Generalized weakness (6) Acute metabolic encephalopathy (7) Diabetes mellitus (8) Hypertension, uncontrolled (9) Hypercholesterolemia (10) Alcohol dependence (11) Incontinence Joseph Hare Nov 17, 2018 14:49
--- NOTE | 2018-11-17 14:58 | NUR ---
*-* INSURANCE *-* ALL CLINICALS HAVE BEEN RE-FAXED TO: [facility] NCM: MANINDER F:[phone] Addendum: 11/18/18 at 1135 by MATTHEW FLORES CM p:[phone]
--- NOTE | 2018-11-17 15:53 | NUR ---
HAND-OFF: Report given to GUERA MADDEN.
--- NOTE | 2018-11-17 16:00 | NUR ---
NURSE NOTES: PT IN BED RESTING COMFORTABLY, CALM, NO RESTLESSNESS, ABLE TO MAKE NEEDS KNOWN, CALL LIGHT WITHIN REACH.
--- NOTE | 2018-11-17 16:00 | NUR ---
NURSE NOTES: Received pt from MARYANNE villa at 1600. pt is confused x3. pt is in RA, no SOB or acute respiratory distress noted. pt has intact iv access BARRETT 24G SL. Pt is in PAIN 6/10. All back and abd is rash. Dr NASH notified. all needs attended, bed is locked and is in the lowest position. call light within easy reach. will continue to monitor.
--- NOTE | 2018-11-17 16:20 | NUR ---
INSTITUTION DIRECTOREXHAUST AND MUFFLER FITTER SI:VENTRAL HERNIA WITH BOWEL CONTENTS VS: BP 157/67, P 66, T 97.6, RR 18, SpO2 97 RBC 3.66, H&H 11.0/32.4, BUN 33 IS:NOVOLOG SUBQ HEPARIN SUBQ COREG 3.125mg PLAVIX 75mg ZYPREXA 2.5mg MORPHINE 2mg IVP MED/SURG STATUS
[2018-11-17] MEDS: Ertapenem 1gm in NS 55ml IVPB SCH (16:39)
--- NOTE | 2018-11-17 16:53 | Internal Med Progress Note ---
Subjective Date of Service: Nov 17, 2018 Physician Name Rhys Yousif Attending Physician Ari Mckeon MD Current Medications Medications (Trade) Dose Ordered Sig/Kannan Route PRN Reason Start Time Stop Time Status Last Admin Dose Admin Acetaminophen (Tylenol) 650 mg Q4H PRN ORAL fever 11/13/18 16:30 12/12/18 16:29 Albuterol/ Ipratropium (Albuterol/ Ipratropium) 3 ml Q4H PRN HHN Shortness of Breath 11/13/18 17:00 11/18/18 16:59 Carvedilol (Coreg) 3.125 mg EVERY 12 HOURS ORAL 11/13/18 21:00 12/12/18 22:59 11/17/18 08:11 Clopidogrel Bisulfate (Plavix) 75 mg DAILY ORAL 11/14/18 09:00 12/13/18 08:59 11/17/18 08:11 Dextrose (Dextrose 50%) 25 ml Q30M PRN IV Hypoglycemia 11/13/18 16:30 12/13/18 16:29 Dextrose (Dextrose 50%) 50 ml Q30M PRN IV Hypoglycemia 11/13/18 16:30 12/13/18 16:29 Ertapenem 1 gm/ Sodium Chloride 55 ml @ 110 mls/hr Q24H IVPB 11/17/18 16:00 11/22/18 15:59 11/17/18 16:39 Gabapentin (Neurontin) 300 mg BEDTIME ORAL 11/13/18 21:00 12/12/18 22:59 11/16/18 21:19 Heparin Sodium (Porcine) (Heparin 5000 units/ml) 5,000 units EVERY 12 HOURS SUBQ 11/13/18 21:00 12/13/18 08:59 11/17/18 08:12 Insulin Aspart (NovoLOG) BEFORE MEALS AND HS SUBQ 11/13/18 16:30 12/13/18 06:29 11/17/18 11:41 Morphine Sulfate (Morphine Sulfate) 2 mg Q4H PRN IVP Moderate Pain (Pain Scale 4-6) 11/13/18 16:30 11/19/18 16:29 11/17/18 16:38 Nitroglycerin (Ntg) 0.4 mg Q5M PRN SL Prn Chest Pain 11/13/18 16:15 7/22/19 22:29 Olanzapine (ZyPREXA) 2.5 mg BID ORAL 11/13/18 18:00 12/13/18 08:59 11/17/18 08:11 Ondansetron HCl (Zofran) 4 mg Q6H PRN IVP Nausea & Vomiting 11/13/18 16:30 12/12/18 22:29 Polyethylene Glycol (Miralax) 17 gm DAILYPRN PRN ORAL Constipation 11/13/18 16:30 12/12/18 16:29 Temazepam (Restoril) 15 mg HSPRN PRN ORAL Insomnia 11/13/18 21:00 11/19/18 20:59 Allergies: Coded Allergies: NO KNOWN DRUG ALLERGIES (Verified Allergy, Unknown, 06/09/17) ROS Limited/Unobtainable: No Constitutional: Reports: no symptoms HEENT: Reports: no symptoms Cardiovascular: Reports: no symptoms Respiratory: Reports: no symptoms Gastrointestinal/Abdominal: Reports: no symptoms Genitourinary: Reports: no symptoms Neurologic/Psychiatric: Reports: no symptoms Subjective 73 YO F admitted with generalized weakness and vertigo. Cover for [facility]-DR Mckeon. Patient fell yesterday, despite restraints Objective Last Vital Signs Date Time Temp Pulse Resp B/P (MAP) Pulse Ox O2 Delivery O2 Flow Rate FiO2 11/17/18 12:00 97.6 66 18 107/54 (71) 98 11/17/18 08:29 Room Air 11/17/18 08:24 21 Laboratory Tests Test 11/17/18 08:13 White Blood Count 6.8 K/UL (4.8-10.8) Red Blood Count 3.66 M/UL (4.20-5.40) L Hemoglobin 11.0 G/DL (12.0-16.0) L Hematocrit 32.4 % (37.0-47.0) L Mean Corpuscular Volume 88 FL (80-99) Mean Corpuscular Hemoglobin 30.0 PG (27.0-31.0) Mean Corpuscular Hemoglobin Concent 33.9 G/DL (32.0-36.0) Red Cell Distribution Width 12.6 % (11.6-14.8) Platelet Count 267 K/UL (150-450) Mean Platelet Volume 6.6 FL (6.5-10.1) Neutrophils (%) (Auto) 69.1 % (45.0-75.0) Lymphocytes (%) (Auto) 23.0 % (20.0-45.0) Monocytes (%) (Auto) 5.4 % (1.0-10.0) Eosinophils (%) (Auto) 1.4 % (0.0-3.0) Basophils (%) (Auto) 1.1 % (0.0-2.0) Erythrocyte Sedimentation Rate 75 MM/HR (0-30) H Sodium Level 139 MMOL/L (136-145) Potassium Level 4.5 MMOL/L (3.5-5.1) Chloride Level 106 MMOL/L (98-107) Carbon Dioxide Level 23 MMOL/L (21-32) Anion Gap 10 mmol/L (5-15) Blood Urea Nitrogen 33 mg/dL (7-18) H Creatinine 1.1 MG/DL (0.55-1.30) Estimat Glomerular Filtration Rate mL/min (>60) Glucose Level 165 MG/DL (74-106) H Calcium Level 8.8 MG/DL (8.5-10.1) Phosphorus Level 3.9 MG/DL (2.5-4.9) Magnesium Level 2.2 MG/DL (1.8-2.4) Total Bilirubin 0.3 MG/DL (0.2-1.0) Aspartate Amino Transf (AST/SGOT) 28 U/L (15-37) Alanine Aminotransferase (ALT/SGPT) 29 U/L (12-78) Alkaline Phosphatase 109 U/L (46-116) C-Reactive Protein, Quantitative 1.7 mg/dL (0.00-0.90) H Total Protein 7.4 G/DL (6.4-8.2) Albumin 3.3 G/DL (3.4-5.0) L Globulin 4.1 g/dL Albumin/Globulin Ratio 0.8 (1.0-2.7) L Microbiology Date/Time Source Procedure Growth Status 11/15/18 12:35 Blood Blood Culture - Preliminary NO GROWTH AFTER 24 HOURS Resulted 11/15/18 12:20 Blood Blood Culture - Preliminary NO GROWTH AFTER 24 HOURS Resulted 11/16/18 16:40 Urine,Clean Catch Urine Culture - Preliminary NO GROWTH Resulted Intake and Output 11/16/18 11/17/18 19:00 07:00 Intake Total 1000 ml Balance 1000 ml Intake Oral 1000 ml # Voids 9 3 Objective PHYSICAL EXAMINATION: GENERAL: The patient is a well-developed and well-nourished female, in no apparent distress. HEENT: Eyes, pupils are equal and responsive to light and accommodation. Extraocular movements are intact. NECK: Supple without lymphadenopathy. CHEST: Lungs are clear to auscultation bilaterally without wheezes or rales. CARDIOVASCULAR: Tachycardic, regular rhythm. S1 and S2 are normal without murmurs, rubs, or gallops. ABDOMEN: Soft, nontender, and nondistended. Positive bowel sounds. No evidence of hepatosplenomegaly. Currently, no rebound or guarding noted. EXTREMITIES: Negative for clubbing, cyanosis, or edema. RECTAL/GENITAL: Refused. NEUROLOGIC: Cranial nerves II through XII are grossly intact without focal deficits. Motor strength is 5/5 bilaterally. Deep tendon reflexes are 2+ plantar. Assessment/Plan Assessment/Plan ASSESSMENT: This is a 73-year-old female. 1. Small bowel obstruction. 2. Generalized weakness. 3. Vertigo. 4. Diabetes type 2. 5. Hypertension. 6. Hypercholesterolemia. 7. Anemia. 8. History of alcohol dependence. TREATMENT: 1. Small bowel obstruction. A Surgery consultation has been obtained with Dr. Hare. No surgical procedures planned per recommendations of Surgery. 2. Generalized weakness/vertigo. This may be secondary to diabetes versus acute stroke. UNABLE TO TOLERATE MRI of the brain. 3. Diabetes type 2. A NovoLog sliding scale has been instituted. 4. Hypertension. Continue lisinopril as above. 5. Hypercholesterolemia. Continue atorvastatin as above. 6. Alcohol dependence/withdrawal. 7. Severe anemia. This was secondary to pessary versus foreign object in the vagina. The patient's current hemoglobin and hematocrit are stable. 8. Discharge planning: [facility] facility due to fall risk Rhys Yousif MD Nov 17, 2018 16:53
--- NOTE | 2018-11-17 18:22 | NUR ---
NURSE NOTES: Dr NASH visited pt and is notified about sacral rash, he will F/U. Will continue to monitor.
[2018-11-17] MEDS: Lotrisone Cream 15gm TOPIC SCH (18:46)
--- NOTE | 2018-11-17 19:26 | NUR ---
NURSE NOTES: Received patient in bed, asleep, no acute distress noted, VSS, afebrile, patient speaks Faroese, patient gets confused and disoriented, on room air. Call light is within reach, bed is in low position, locked and alarm is on, will continue to monitor for comfort and safety.
--- NOTE | 2018-11-17 19:30 | NUR ---
HAND-OFF: Report given to MARYANNE YING. Endorsed to F/U FOR ob. pt didn't have BM during my shift.
[2018-11-18 03:45] VITALS: BP 118/62
[2018-11-18] MEDS: NovoLOG Insulin Flexpen SUBQ SCH ×3 (06:28→17:03)
[2018-11-18 06:42] LABS: BASOPHILS % (AUTO) 0.9 % (0.0-2.0); EOSINOPHILS % (AUTO) 4.5 % (0.0-3.0); HEMATOCRIT 30.3 % (37.0-47.0); HEMOGLOBIN 10.2 G/DL (12.0-16.0); MEAN CORPUSCULAR VOLUME 90 FL (80-99); MONOCYTES % (AUTO) 9.7 % (1.0-10.0); NEUTROPHILS % (AUTO) 49.9 % (45.0-75.0); PLATELET COUNT 270 K/UL (150-450); RED BLOOD COUNT 3.38 M/UL (4.20-5.40); RED CELL DISTRIBUTION WIDTH 12.6 % (11.6-14.8); WHITE BLOOD COUNT 6.6 K/UL (4.8-10.8)
[2018-11-18 07:02] LABS: ANION GAP 11 mmol/L (5-15); BLOOD UREA NITROGEN 47 mg/dL (7-18); CALCIUM 8.9 MG/DL (8.5-10.1); CARBON DIOXIDE 22 MMOL/L (21-32); CHLORIDE 111 MMOL/L (98-107); CREATININE 1.4 MG/DL (0.55-1.30); POTASSIUM 4.5 MMOL/L (3.5-5.1); SODIUM 144 MMOL/L (136-145)
--- NOTE | 2018-11-18 07:08 | NUR ---
HAND-OFF: Report given to Ray MADDEN.
--- NOTE | 2018-11-18 07:10 | NUR ---
NURSE NOTES: Received pt from MARYANNE YING. pt is confused x3. pt is in RA, no SOB or acute respiratory distress noted. pt has intact iv access BARRETT 24G SL. all needs attended, bed is locked and is in the lowest position. call light within easy reach. will continue to monitor.
[2018-11-18 08:00] VITALS: BP 127/61
[2018-11-18] MEDS: Lotrisone Cream 15gm TOPIC SCH ×2 (08:33→17:04)
[2018-11-18] MEDS: OLANZapine 2.5mg tab ORAL SCH ×2 (08:33→17:03)
[2018-11-18] MEDS: Morphine Sulfate 2mg/ml Inj(IV/IM USE ONLY) IVP PRN (08:33)
[2018-11-18] MEDS: Heparin 5000 units/ml inj SUBQ SCH (08:34)
--- NOTE | 2018-11-18 09:16 | NUR ---
NURSE NOTES: With help WILLIAM GARCIA given complete bath to pt and washed all ELIMITE creme from body. pt tolerate well continue to monitor.
[2018-11-18] MEDS ORDERED: Lice Treatment Shampoo 4oz Bottle TOPIC SCH (11:00)
--- NOTE | 2018-11-18 11:09 | NUR ---
NURSE NOTES: wound nurse KURT and Dr YUEN visited pt fond LICE on the head of the pt and ordered PYRETHRINS SHAMPOO. noted and carried out. Dr NASH notified and asked to call Dr RUFF. Dr RUFF notified and stated she will come to visit pt. will continue to monitor.
--- NOTE | 2018-11-18 11:13 | Infectious Diseases Prog Note ---
Assessment/Plan Assessment/Plan Assessment/Plan: 73 yo female with PMHx of HTN and DM who presented ot the ED on 11/12/18 with one day of weakness. UTI UCx 11/12/18- esbl e.COLI (s zOSYN, tigecycline, ertap) No Fever No leukocytosis Gram positive bacteremia- likely contaminant -11/12 Bcx 1/4 CONS; 11/15 Bcx NTD s/p Fall in hospital -CT head: No acute intracranial bleed, mass effect or edema. Mild atrophy of the brain. Nonspecific white matter hypoattenuation probably due to chronic small vessel disease. AMOS Periumbilical hernia, probable early/ partial SBO A CT scan (11/12/18) of the abd showed early or partal SBO along with periumbilical hernia. The patient how ever has been tolerating PO diet. Afebrile no leukocytosis HTN DM PLAN: - Cont Ertapenem #4 (abx d #5/5)for ESBL UTI given AMOS -11/17 SP Daptomycin #3 -11/15 SP Zosyn #2, Vancomycin #2 -11/14 SP Cefepime #2 - 11/13/18 SP Flagyl #1 - f/u urine Cx - Monitor CBC and Temps -f/u repeat Bcx x2 Thank you for this consult. We will continue to follow the patient during this hospitalization. Subjective Allergies: Coded Allergies: NO KNOWN DRUG ALLERGIES (Verified Allergy, Unknown, 06/09/17) Subjective afebrile no leukocytosis repaet Bcx NTD Objective Vital Signs Last 24 Hour Vital Signs Date Time Temp Pulse Resp B/P (MAP) Pulse Ox O2 Delivery O2 Flow Rate FiO2 11/18/18 09:03 97.5 11/18/18 09:00 Room Air 11/18/18 08:33 63 127/61 11/18/18 08:33 74 18 97 Room Air 21 11/18/18 08:00 97.5 63 16 127/61 (83) 98 11/18/18 03:45 97.5 65 18 118/62 (80) 96 11/17/18 23:41 98.2 72 20 131/61 (84) 96 11/17/18 21:00 Room Air 11/17/18 20:30 91 127/59 11/17/18 20:08 98.4 70 20 117/71 (86) 95 11/17/18 19:54 70 18 97 Room Air 21 11/17/18 16:00 98.4 72 18 125/54 (77) 94 11/17/18 12:00 97.6 66 18 107/54 (71) 98 Height (Feet): 5 Height (Inches): 4.00 Weight (Pounds): 149 Objective Gen: NAD HEENT: NCAT, MMM, EOMI, PERRL, No Oral lesion, no scleral icterus NECK: full range of motion, supple, no meningismus, No LAD, No JVD LUNGS: CTAB, No W/C, No Accessory muscle use CARDS: RRR, S1, S2, No M/R/G, ABD: Soft, NT, ND, No R/G, + BS, No HSM, No Masses : Deferred Ext: C/C/E, Pulses 2+ B/L (DP, Rad): NEURO: A/O x 4, Strength and Sensation Grossly intact PSYCH: Normal mood and affect SKIN: Warm/dry, No rashes Microbiology Date/Time Source Procedure Growth Status 11/15/18 12:35 Blood Blood Culture - Preliminary NO GROWTH AFTER 48 HOURS Resulted 11/15/18 12:20 Blood Blood Culture - Preliminary NO GROWTH AFTER 48 HOURS Resulted 11/16/18 16:40 Urine,Clean Catch Urine Culture - Final NO GROWTH AFTER 48 HOURS Complete Laboratory Tests Test 11/18/18 04:45 White Blood Count 6.6 K/UL (4.8-10.8) Red Blood Count 3.38 M/UL (4.20-5.40) L Hemoglobin 10.2 G/DL (12.0-16.0) L Hematocrit 30.3 % (37.0-47.0) L Mean Corpuscular Volume 90 FL (80-99) Mean Corpuscular Hemoglobin 30.0 PG (27.0-31.0) Mean Corpuscular Hemoglobin Concent 33.5 G/DL (32.0-36.0) Red Cell Distribution Width 12.6 % (11.6-14.8) Platelet Count 270 K/UL (150-450) Mean Platelet Volume 6.6 FL (6.5-10.1) Neutrophils (%) (Auto) 49.9 % (45.0-75.0) Lymphocytes (%) (Auto) 35.0 % (20.0-45.0) Monocytes (%) (Auto) 9.7 % (1.0-10.0) Eosinophils (%) (Auto) 4.5 % (0.0-3.0) H Basophils (%) (Auto) 0.9 % (0.0-2.0) Sodium Level 144 MMOL/L (136-145) Potassium Level 4.5 MMOL/L (3.5-5.1) Chloride Level 111 MMOL/L (98-107) H Carbon Dioxide Level 22 MMOL/L (21-32) Anion Gap 11 mmol/L (5-15) Blood Urea Nitrogen 47 mg/dL (7-18) H Creatinine 1.4 MG/DL (0.55-1.30) H Estimat Glomerular Filtration Rate mL/min (>60) Glucose Level 115 MG/DL (74-106) H Calcium Level 8.9 MG/DL (8.5-10.1) Current Medications Medications (Trade) Dose Ordered Sig/Kannan Route PRN Reason Start Time Stop Time Status Last Admin Dose Admin Acetaminophen (Tylenol) 650 mg Q4H PRN ORAL fever 11/13/18 16:30 12/12/18 16:29 Albuterol/ Ipratropium (Albuterol/ Ipratropium) 3 ml Q4H PRN HHN Shortness of Breath 11/13/18 17:00 11/18/18 16:59 Betamethasone/ Clotrimazole (Lotrisone) 1 applic TWICE A DAY TOPIC 11/17/18 18:15 12/17/18 18:14 11/18/18 08:33 Carvedilol (Coreg) 3.125 mg EVERY 12 HOURS ORAL 11/13/18 21:00 12/12/18 22:59 11/18/18 08:33 Clopidogrel Bisulfate (Plavix) 75 mg DAILY ORAL 11/14/18 09:00 12/13/18 08:59 11/18/18 08:33 Dextrose (Dextrose 50%) 25 ml Q30M PRN IV Hypoglycemia 11/13/18 16:30 12/13/18 16:29 Dextrose (Dextrose 50%) 50 ml Q30M PRN IV Hypoglycemia 11/13/18 16:30 12/13/18 16:29 Ertapenem 1 gm/ Sodium Chloride 55 ml @ 110 mls/hr Q24H IVPB 11/17/18 16:00 11/22/18 15:59 11/17/18 16:39 Gabapentin (Neurontin) 300 mg BEDTIME ORAL 11/13/18 21:00 12/12/18 22:59 11/17/18 20:29 Heparin Sodium (Porcine) (Heparin 5000 units/ml) 5,000 units EVERY 12 HOURS SUBQ 11/13/18 21:00 12/13/18 08:59 11/18/18 08:34 Insulin Aspart (NovoLOG) BEFORE MEALS AND HS SUBQ 11/13/18 16:30 12/13/18 06:29 11/18/18 06:28 Morphine Sulfate (Morphine Sulfate) 2 mg Q4H PRN IVP Moderate Pain (Pain Scale 4-6) 11/13/18 16:30 11/19/18 16:29 11/18/18 08:33 Nitroglycerin (Ntg) 0.4 mg Q5M PRN SL Prn Chest Pain 11/13/18 16:15 12/12/18 22:29 Olanzapine (ZyPREXA) 2.5 mg BID ORAL 11/13/18 18:00 12/13/18 08:59 11/18/18 08:33 Ondansetron HCl (Zofran) 4 mg Q6H PRN IVP Nausea & Vomiting 11/13/18 16:30 12/12/18 22:29 Polyethylene Glycol (Miralax) 17 gm DAILYPRN PRN ORAL Constipation 11/13/18 16:30 12/12/18 16:29 Pyrethrins/ Piperonyl Butoxide (Lice Treatment Soln) 1 applic ONCE TOPIC 11/18/18 11:00 11/18/18 15:00 Temazepam (Restoril) 15 mg HSPRN PRN ORAL Insomnia 11/13/18 21:00 11/19/18 20:59 Myriam Mcgill M.D. Nov 18, 2018 11:13
--- NOTE | 2018-11-18 11:53 | Surgery Progress Note ---
Surgery Progress Note Subjective Additional Comments noted to have head lice. placed on precautions. Rx ordered Objective Last 24 Hour Vital Signs Date Time Temp Pulse Resp B/P (MAP) Pulse Ox O2 Delivery O2 Flow Rate FiO2 11/18/18 09:03 97.5 11/18/18 09:00 Room Air 11/18/18 08:33 63 127/61 11/18/18 08:33 74 18 97 Room Air 21 11/18/18 08:00 97.5 63 16 127/61 (83) 98 11/18/18 03:45 97.5 65 18 118/62 (80) 96 11/17/18 23:41 98.2 72 20 131/61 (84) 96 11/17/18 21:00 Room Air 11/17/18 20:30 91 127/59 11/17/18 20:08 98.4 70 20 117/71 (86) 95 11/17/18 19:54 70 18 97 Room Air 21 11/17/18 16:00 98.4 72 18 125/54 (77) 94 11/17/18 12:00 97.6 66 18 107/54 (71) 98 I&O Intake and Output 11/17/18 11/18/18 18:59 06:59 Intake Total 415 ml Balance 415 ml Intake Oral 360 ml IV Total 55 ml # Voids 3 Dressing: other Wound: other Drains: other Cardiovascular: RSR Respiratory: decreased breath sounds Abdomen: soft, present bowel sounds, non-distended Extremities: no cyanosis Laboratory Tests Test 11/18/18 04:45 White Blood Count 6.6 K/UL (4.8-10.8) Red Blood Count 3.38 M/UL (4.20-5.40) L Hemoglobin 10.2 G/DL (12.0-16.0) L Hematocrit 30.3 % (37.0-47.0) L Mean Corpuscular Volume 90 FL (80-99) Mean Corpuscular Hemoglobin 30.0 PG (27.0-31.0) Mean Corpuscular Hemoglobin Concent 33.5 G/DL (32.0-36.0) Red Cell Distribution Width 12.6 % (11.6-14.8) Platelet Count 270 K/UL (150-450) Mean Platelet Volume 6.6 FL (6.5-10.1) Neutrophils (%) (Auto) 49.9 % (45.0-75.0) Lymphocytes (%) (Auto) 35.0 % (20.0-45.0) Monocytes (%) (Auto) 9.7 % (1.0-10.0) Eosinophils (%) (Auto) 4.5 % (0.0-3.0) H Basophils (%) (Auto) 0.9 % (0.0-2.0) Sodium Level 144 MMOL/L (136-145) Potassium Level 4.5 MMOL/L (3.5-5.1) Chloride Level 111 MMOL/L (98-107) H Carbon Dioxide Level 22 MMOL/L (21-32) Anion Gap 11 mmol/L (5-15) Blood Urea Nitrogen 47 mg/dL (7-18) H Creatinine 1.4 MG/DL (0.55-1.30) H Estimat Glomerular Filtration Rate mL/min (>60) Glucose Level 115 MG/DL (74-106) H Calcium Level 8.9 MG/DL (8.5-10.1) Plan Problems: (1) Urinary tract infection (2) Hydronephrosis (3) Umbilical hernia (4) Partial small bowel obstruction Assessment & Plan: 83-year-old female who presented with generalized weakness and feeling unwell. On further work-up was identified to have a ventral hernia with bowel contents. Patient without obstructive symptoms. No nausea vomiting fever or chills. Labs okay. Examination benign with soft abdomen that is nontender nondistended and positive bowel sounds. Hernia cannot be palpated and potentially reduced already but cannot identify fascial defect given the amount of adipose tissue. Patient states that last bowel movement was yesterday and has not had one today. States she is able to tolerate oral diet. kub okay exam stable No acute surgical intervention planned. Okay for diet as tolerated . Ambulate and out of bed. Rx as written. ventral hernia repair elective outpatient Thank you for this consultation we will follow with recommendations (5) Generalized weakness (6) Acute metabolic encephalopathy (7) Diabetes mellitus (8) Hypertension, uncontrolled (9) Hypercholesterolemia (10) Alcohol dependence (11) Incontinence Joseph Hare Nov 18, 2018 11:52
[2018-11-18 12:00] VITALS: BP 128/64
--- NOTE | 2018-11-18 12:08 | NUR ---
NURSE NOTES:WOUND CARE NOTES:Pt presents with erythematous rash with moisture intertrigo bilat breast folds. Incontinence associated dermatitis lumbar area and buttocks.Erythematous rash with denuded skin noted. While assesseing pt pt noted to be scratching her head and when asked pt stated head and neck were itchy. When assessed pt noted to have head lice. Reported to primary nurse and nurse in charge of unit. Both heels are blanchable. No other skin cncerns noted. Tx.Plan:Head lice Tx as per hospital formulary. Apply Remedy Antifungal cream to both breast and buttocks Twice Daily. Encourage and assist as needed to reposition at least every 2hours or as tolerated.
--- NOTE | 2018-11-18 12:34 | Pulmonology Progress Note ---
Assessment/Plan Problems: (1) MDRO (multiple drug resistant organisms) resistance (2) ATN (acute tubular necrosis) (3) Urinary tract infection (4) Acute metabolic encephalopathy (5) Hydronephrosis (6) Umbilical hernia (7) Diabetes mellitus Assessment/Plan GI/surgery evaluation appreciated urine has MDR ecoli repeat Urine analysis reviewed, just a few of bacteria are present now in urine iv abx iv fluids by ID check electrolytes social service consult ordered. Last admission, a APS report was filed. sliding scale pt/ot Subjective ROS Limited/Unobtainable: No Constitutional: Reports: no symptoms HEENT: Repors: no symptoms Respiratory: Reports: no symptoms Allergies: Coded Allergies: NO KNOWN DRUG ALLERGIES (Verified Allergy, Unknown, 06/09/17) Objective Last 24 Hour Vital Signs Date Time Temp Pulse Resp B/P (MAP) Pulse Ox O2 Delivery O2 Flow Rate FiO2 11/18/18 12:00 98.2 70 17 128/64 (85) 99 11/18/18 09:03 97.5 11/18/18 09:00 Room Air 11/18/18 08:33 63 127/61 11/18/18 08:33 74 18 97 Room Air 21 11/18/18 08:00 97.5 63 16 127/61 (83) 98 11/18/18 03:45 97.5 65 18 118/62 (80) 96 11/17/18 23:41 98.2 72 20 131/61 (84) 96 11/17/18 21:00 Room Air 11/17/18 20:30 91 127/59 11/17/18 20:08 98.4 70 20 117/71 (86) 95 11/17/18 19:54 70 18 97 Room Air 21 11/17/18 16:00 98.4 72 18 125/54 (77) 94 Intake and Output 11/17/18 11/18/18 19:00 07:00 Intake Total 415 ml Balance 415 ml Intake Oral 360 ml IV Total 55 ml # Voids 3 General Appearance: cachetic HEENT: normocephalic, atraumatic Respiratory/Chest: chest wall non-tender, lungs clear Breasts: no masses Cardiovascular: normal peripheral pulses, normal rate Abdomen: normal bowel sounds, soft, non tender Genitourinary: normal external genitalia Extremities: no cyanosis, no clubbing Microbiology Date/Time Source Procedure Growth Status 11/15/18 12:35 Blood Blood Culture - Preliminary NO GROWTH AFTER 48 HOURS Resulted 11/16/18 16:40 Urine,Clean Catch Urine Culture - Final NO GROWTH AFTER 48 HOURS Complete Laboratory Tests 11/18/18 04:45: White Blood Count 6.6, Red Blood Count 3.38L, Hemoglobin 10.2L, Hematocrit 30.3L , Mean Corpuscular Volume 90, Mean Corpuscular Hemoglobin 30.0, Mean Corpuscular Hemoglobin Concent 33.5, Red Cell Distribution Width 12.6, Platelet Count 270, Mean Platelet Volume 6.6, Neutrophils (%) (Auto) 49.9, Lymphocytes (% ) (Auto) 35.0, Monocytes (%) (Auto) 9.7, Eosinophils (%) (Auto) 4.5H, Basophils (%) (Auto) 0.9, Sodium Level 144, Potassium Level 4.5, Chloride Level 111H, Carbon Dioxide Level 22, Anion Gap 11, Blood Urea Nitrogen 47H, Creatinine 1.4H , Estimat Glomerular Filtration Rate , Glucose Level 115H, Calcium Level 8.9 Current Medications Medications (Trade) Dose Ordered Sig/Kannan Route PRN Reason Start Time Stop Time Status Last Admin Dose Admin Acetaminophen (Tylenol) 650 mg Q4H PRN ORAL fever 11/13/18 16:30 12/12/18 16:29 Albuterol/ Ipratropium (Albuterol/ Ipratropium) 3 ml Q4H PRN HHN Shortness of Breath 11/13/18 17:00 11/18/18 16:59 Betamethasone/ Clotrimazole (Lotrisone) 1 applic TWICE A DAY TOPIC 11/17/18 18:15 12/17/18 18:14 11/18/18 08:33 Carvedilol (Coreg) 3.125 mg EVERY 12 HOURS ORAL 11/13/18 21:00 12/12/18 22:59 11/18/18 08:33 Clopidogrel Bisulfate (Plavix) 75 mg DAILY ORAL 11/14/18 09:00 12/13/18 08:59 11/18/18 08:33 Dextrose (Dextrose 50%) 25 ml Q30M PRN IV Hypoglycemia 11/13/18 16:30 12/13/18 16:29 Dextrose (Dextrose 50%) 50 ml Q30M PRN IV Hypoglycemia 11/13/18 16:30 12/13/18 16:29 Ertapenem 1 gm/ Sodium Chloride 55 ml @ 110 mls/hr Q24H IVPB 11/17/18 16:00 11/22/18 15:59 11/17/18 16:39 Gabapentin (Neurontin) 300 mg BEDTIME ORAL 11/13/18 21:00 12/12/18 22:59 11/17/18 20:29 Heparin Sodium (Porcine) (Heparin 5000 units/ml) 5,000 units EVERY 12 HOURS SUBQ 11/13/18 21:00 12/13/18 08:59 11/18/18 08:34 Insulin Aspart (NovoLOG) BEFORE MEALS AND HS SUBQ 11/13/18 16:30 12/13/18 06:29 11/18/18 11:53 Morphine Sulfate (Morphine Sulfate) 2 mg Q4H PRN IVP Moderate Pain (Pain Scale 4-6) 11/13/18 16:30 11/19/18 16:29 11/18/18 08:33 Nitroglycerin (Ntg) 0.4 mg Q5M PRN SL Prn Chest Pain 11/13/18 16:15 12/12/18 22:29 Olanzapine (ZyPREXA) 2.5 mg BID ORAL 11/13/18 18:00 12/13/18 08:59 11/18/18 08:33 Ondansetron HCl (Zofran) 4 mg Q6H PRN IVP Nausea & Vomiting 11/13/18 16:30 12/12/18 22:29 Polyethylene Glycol (Miralax) 17 gm DAILYPRN PRN ORAL Constipation 11/13/18 16:30 12/12/18 16:29 Pyrethrins/ Piperonyl Butoxide (Lice Treatment Soln) 1 applic ONCE TOPIC 11/18/18 11:00 11/18/18 15:00 11/18/18 11:52 Temazepam (Restoril) 15 mg HSPRN PRN ORAL Insomnia 11/13/18 21:00 11/19/18 20:59 Oscar Quezada MD Nov 18, 2018 12:34
--- NOTE | 2018-11-18 12:37 | NUR ---
NURSE NOTES: Dr RUFF visited pt and checked all body, no new order to RN. Will continue to monitor.
--- NOTE | 2018-11-18 12:56 | NUR ---
*-* INSURANCE *-* UPDATED CLINICALS HAVE BEEN FAXED TO: [facility] NCM: MANINDER F:[phone] p:[phone]
--- NOTE | 2018-11-18 14:58 | NUR ---
NURSE NOTES: pt has discharge order. PT SHAYY stated pt is un steady and isn't safe to D/C pt to home. Dr VERNON notified but he stated it's ok to D/C pt to home. SHAMEKA BLACK is notified. charge nurse FANNY spoke with also about the condition of pt and she is fall risk. but Dr vernon again ordered to D/C pt. all discharge assessments and instructions done. ana rosa CORRIGAN is aware. waiting to come to scrap picker pt. will continue to monitor.
[2018-11-18] MEDS: Ertapenem 1gm in NS 55ml IVPB SCH (15:04)
--- NOTE | 2018-11-18 15:12 | NUR ---
P.T NOTE:LATE ENTRY 1400 P.T EVALUATION COMPLETED AND TREATMENT INITIATED. PLEASE REFER TO P.T EVALUATION FOR CURRENT FUNCTIONAL STATUS. PATIENT IS ALERT , O X 2 , PLEASANTLY AND PERIODICALLY CONFUSED HOWEVER APPROPRIATELY CARRIES CONVERSATION. PATIENT HAND NO C/O BUT GENERALLY WEAK AND UNSTEADY. PATIENT IS AT HIGH FALL RISK AND REQUIRED MOD A X 1 AND CONSTANT REDIRECTION WITH BED MOBILITY , TRANSFERS AND GAIT/AMBULATION WITH FWW. SKILLED P.T SERVICE IS WARRANTED TO IMPROVE STRENGTH , BALANCE AND ENDURANCE TO IMPROVE MOBILITY INDEPENDENCE AND SAFETY. RECOMMEND SNF FOR SHORT TERM REHAB VS HOME WITH P.T.
[2018-11-18 16:00] VITALS: BP 135/58
--- NOTE | 2018-11-18 16:18 | Cardiology Report ---
APPROVED REPORT EKG Measurement Heart [id number] Normal sinus rhythm Normal ECG
[2018-11-18] MEDS ORDERED: NS 275ml ONE (17:56)
--- NOTE | 2018-11-18 18:03 | NUR ---
NURSE NOTES: pt's daughter MEENU is aware about D/C and she stated pt's grand daughter NAOMI will come to pickle pumper pt. NAOMI is aware about discharge instructions, she is aware to apply cream BID. wound nurse KURT recommend to keep shampoo for LICE till donna orrow morning and it's washed tomorrow morning. RN explained all to NAOMI and she asked me to leave shampoo on the head till tomorrow morning. pt has no belongings. NAOMI is aware pt is very fall risk and must use walker with assist. NAOMI verbally confirmed to understand all discharge instructions. iv access D/C. pt is stable. V/S stable. Pt left hospital with accompany of NAOMI.
--- NOTE | 2018-11-21 08:00 | Discharge Summary ---
Discharge Summary Discharge Summary _ DATE OF ADMISSION: 11/12/2018 DATE OF DISCHARGE: 11/18/2018 DISCHARGED BYDr. Mckeon: REASON FOR ADMISSION: [] 73 years old female with past medical history of hypertension, diabetes mellitus, hypercholesterolemia, history of severe anemia, history of alcohol dependency presented to emergency department with generalized body aches, generalized weakness and dizziness.. She denied fever and chills. No vomiting or diarrhea. Upon evaluation vital signs were stable. Laboratory work-up revealed no leukocytosis hemoglobin 10.1 hematocrit 20.5. Electrolytes are stable BUN 28 creatinine 1.1. Stable LFT urinalysis revealed evidence of urinary tract infection. Chest x-ray revealed no evidence of acute cardiopulmonary disease. CT of the abdomen and pelvis demonstrated no findings to suggest acute appendicitis. No bladder calculi. Moderate L1 vertebral compression fracture chronic. Advanced degenerative changes throughout her lumbar spine. No evidence of lymphadenopathy. Small periumbilical hernia containing loop of small bowel loops findings suggesting of early or partial small bowel obstruction. Cholelithiasis. Patient subsequently admitted for further management. CONSULTANTS: automobile drivers neurologist pulmonary Dr. Quezada ID specialist Dr. Mai GI specialist cover seamer americanization teacher/oncologist surgery Dr. Hare psychiatrist Urologist Dr. Issa [facility] COURSE: [] Patient admitted started on IV hydration. Patient initially was kept n.p.o. And started on empiric antibiotic for UTI surgery consult was requested. For partial small bowel obstruction. Follow-up KUB revealed no acute findings. Clinical exam was benign. Patient exhibited positive bowel sinus sounds. Hernia could not be palpated and potentially already reduced patient had bowel movement patient slowly started on a diet. Acute surgical intervention was necessary at this time patient was able to tolerate diet. Infectious disease specialist closely follow. Initial blood culture revealed Staphylococcus coagulase-negative 1 out of 2. Repeated blood culture on 622 and 625 were negative. Per ID specialist blood cultures initial blood culture with Staphylococcus coagulase-negative with likely contaminant. Urine culture revealed E. coli ESBL. Antibiotic regimen was optimized as per ID specialist recommendation. No fever no leukocytosis. repeated urine culture revealed no growth. Urologist seen and evaluated the patient regarding left-sided hydronephrosis noted on imaging. Patient recently had pessary removed and probably developed scar or stricture causing obstruction. Causing outlet obstruction. Given that her renal function was relatively normal and her as her kidney did not display any evidence of obstruction, hydronephrosis or loss of function urologist recommended 2D failure any intervention for this obstruction at this time. Patient can follow-up with a urologist as outpatient for monitor monitoring and deciding whether or not stenting or pyeloplasty would be appropriate given her clinical situation and scenario. Renal parameters electrolytes were closely monitored. Electrolytes corrected as needed nephrotoxins were avoided prior to discharge creatinine 1.4.. Hemoglobin and hematocrit were closely monitor his goal to keep hemoglobin above 7. Anemia work-up revealed evidence of anemia of chronic disease .to discharge hemoglobin 10.2 hematocrit 30.3. CEA within normal range. Stable B12 and folate levels. Blood sugar was managed with sliding scale of insulin. And remained stable Blood pressure initially was not controlled. Antihypertensive medication regimen was optimized. Patient was treated with a beta-radha and patient also had and also had antihypertensive medication as needed. Blood pressure stabilized. Anti-platelet therapy with Plavix continued. DVT prophylaxis provided. Supplemental oxygen was on board as needed to keep pulse oximetry above 92%. Pulse oximetry remained stable on room air. Patient noted to have lice. Lice treatment provided. And repeat in 3 days Supportive care provided. Bowel regimen instituted. Patient clinically stabilized and was ready for discharge home. FINAL DIAGNOSES : 1. [] Partial small bowel obstruction Periumbilical hernia Urinary tract infection with E. coli ESBL Acute metabolic encephalopathy Hydronephrosis Diabetes mellitus Hypertension uncontrolled Vertigo Anemia Hypercholesterolemia DISCHARGE MEDICATIONS: See Medication Reconciliation list. DISCHARGE INSTRUCTIONS: [] I have been assigned to dictate discharge summary for this account. I was not involved in the patient's management. Maddy Molina NP Nov 21, 2018 08:00
--- NOTE | 2018-11-21 08:49 | Cardiology Report ---
APPROVED REPORT EXAM: Two-dimensional and M-mode echocardiogram with Doppler and color Doppler. INDICATION Dizziness M-Mode DIMENSIONS IVSd1.2 (0.7-1.1cm)Left Atrium (MM)4.4 (1.6-4.0cm) LVDd3.6 (3.5-5.6cm)Aortic Root2.7 (2.0-3.7cm) PWd1.2 (0.7-1.1cm)Aortic Cusp Exc.1.5 (1.5-2.0cm) LVDs1.8 (2.5-4.0cm) PWs1.4 cm Normal left ventricular chamber size, systolic function and wall motion. Left ventricular ejection fraction estimated to be 60 %. Mild left ventricular hypertrophy. No evidence of pericardial effusion. Mild left atrial enlargement. Right cardiac chamber sizes are within normal limits. Focal aortic valve sclerosis with adequate cusp excursion. Thickened mitral valve leaflets with normal excursion. Mitral annulus and aortic root calcification. Pulmonic valve not well visualized. Normal tricuspid valve structure. IVC is normal in size with physiological collapse. A color flow and spectral Doppler study was performed and revealed: No aortic regurgitation. Mild mitral regurgitation. Normal left ventricular diastolic function. Mild tricuspid regurgitation. Tricuspid systolic velocities suggests peak right ventricular systolic pressure of 46 mmHg, consistent with moderate pulmonary hypertension. Trace pulmonic regurgitation present.
== END 2018-11-18 17:57 | disposition home health service (06) | DRG 463 ==
LOC: EDBD 17:08 → EMR 17:24 → EDBEDREQ 19:00 → 2E 20:03 → EDBEDREQ 20:22 → 2E 11-13 15:51 → 4E 11-13 16:15
DX: N39.0 Urinary tract infection, site not specified (principal); G93.41 Metabolic encephalopathy; N13.30 Unspecified hydronephrosis; B96.89 Other specified bacterial agents as the cause of diseases classified elsewhere; K42.0 Umbilical hernia with obstruction, without gangrene; E11.9 Type 2 diabetes mellitus without complications; B96.20 Unspecified Escherichia coli [E. coli] as the cause of diseases classified elsewhere; D64.9 Anemia, unspecified; E78.00 Pure hypercholesterolemia, unspecified; F10.20 Alcohol dependence, uncomplicated; R53.1 Weakness; I10 Essential (primary) hypertension; Z79.84 Long term (current) use of oral hypoglycemic drugs; Z79.02 Long term (current) use of antithrombotics/antiplatelets; Z79.82 Long term (current) use of aspirin; Z87.891 Personal history of nicotine dependence; F10.21 Alcohol dependence, in remission; Z16.12 Extended spectrum beta lactamase (ESBL) resistance; R42 Dizziness and giddiness; R32 Unspecified urinary incontinence; N81.10 Cystocele, unspecified; K80.20 Calculus of gallbladder without cholecystitis without obstruction
CPT/HCPCS: 36415; 70450; 71045; 74018; 74177; 80048; 80053; 80329; 81001; 81003; 82378; 82550; 82553; 82607; 82746; 82962; 83540; 83550; 83605; 83615; 83735; 84100; 84484; 85007; 85025; 85044; 85060; 85610; 85651; 85730; 86140; 87040; 87081; 87086; 87181; 93005; 93306; 93880; 94664; 96361; 96365; 99285; J1815

== ENCOUNTER 2019-02-10 18:01 | Emergency (ER) | payer MEDICAID ==
[~2019-02-10] VITALS: Ht 154.9 cm; Wt 68.0 kg
[~2019-02-10 18:01] MED LIST changes: +LIPITOR80 MG ORAL; +NAPROXEN250 M1 PO
[2019-02-10 18:24] VITALS: BP 122/61
--- NOTE | 2019-02-10 18:35 | Emergency Room Report ---
History of Present Illness General Chief Complaint: General Complaint Source: Patient, Family Member Present Illness HPI 73-year-old female history of hypertension, diabetes presents with ecchymosis of the right breast, patient is demented cannot member what happened she denies any pain, unknown aggravating or alleviating factors severity is mild, patient states there was discoloration of her right breast not sure when it happened, she was brought in by family patient has no complaints at this time, no dyspnea on exertion no chest pain no shortness of breath no abdominal pain.. Allergies: Coded Allergies: NO KNOWN DRUG ALLERGIES (Verified Allergy, Unknown, 06/09/17) Patient History Past Medical History: see triage record Reviewed Nursing Documentation: PMH: Agreed; PSxH: Agreed Nursing Documentation-PMH Past Medical History: No History, Except For Hx Cardiac Problems: Yes Hx Hypertension: Yes Hx Diabetes: Yes Hx Cancer: No Hx Gastrointestinal Problems: Yes Hx Neurological Problems: Yes Hx Memory Loss: Yes Hx Concentration Difficulty: Yes Hx Dizziness: Yes Hx Weakness: Yes Hx Fatigue: Yes Review of Systems All Other Systems: negative except mentioned in HPI Physical Exam Vital Signs Date Time Temp Pulse Resp B/P (MAP) Pulse Ox O2 Delivery O2 Flow Rate FiO2 02/10/19 18:11 97.9 74 18 122/61 (81) 96 Room Air Sp02 EP Interpretation: reviewed, normal General Appearance: well appearing, no apparent distress, alert Head: normocephalic, atraumatic Eyes: bilateral eye PERRL, bilateral eye EOMI ENT: uvula midline, moist mucus membranes Neck: supple, thyroid normal, supple/symm/no masses Respiratory: lungs clear, no respiratory distress, no retraction, no accessory muscle use Cardiovascular #1: normal peripheral pulses, regular rate, rhythm, no edema, no gallop, no murmur Gastrointestinal: non tender, soft, no guarding, no rebound Musculoskeletal: normal inspection Neurologic: alert, oriented x3 Psychiatric: mood/affect normal Skin: no rash, warm/dry, Ecchymosis/Bruising - Covering entire right breast Anton flower RN Medical Decision Making Diagnostic Impression: Primary Impression: Contusion of breast, right Qualified Codes: S20.01XA - Contusion of right breast, initial encounter Additional Impression: Anemia Qualified Codes: D64.9 - Anemia, unspecified ER Course 73-year-old female presents with ecchymosis of the right breast, patient is not sure if she excellently had blunt trauma after a possible fall, wounds are old, differential diagnosis includes peau d'orange, chest contusion, ecchymosis Patient is currently taking Plavix she is susceptible easy bruising no evidence of elderly abuse, family member state patient refuses to use a walker or have assistance Patient with anemia, no evidence of bloody stools, joint decision-making was made with family to pursue outpatient care, patient is without symptoms of anemia, counseled family they will follow-up with GI and PCP will start iron supplementation now Chest x-ray negative, lab work negative EKG negative Strict return precautions discussed, counseled patient to follow-up and obtain a mammogram in future Laboratory Tests Test 02/10/19 18:40 White Blood Count 8.7 K/UL (4.8-10.8) Red Blood Count 2.44 M/UL (4.20-5.40) L Hemoglobin 7.8 G/DL (12.0-16.0) L Hematocrit 22.4 % (37.0-47.0) L Mean Corpuscular Volume 92 FL (80-99) Mean Corpuscular Hemoglobin 32.1 PG (27.0-31.0) H Mean Corpuscular Hemoglobin Concent 35.0 G/DL (32.0-36.0) Red Cell Distribution Width 12.1 % (11.6-14.8) Platelet Count 233 K/UL (150-450) Mean Platelet Volume 7.1 FL (6.5-10.1) Neutrophils (%) (Auto) 66.2 % (45.0-75.0) Lymphocytes (%) (Auto) 23.4 % (20.0-45.0) Monocytes (%) (Auto) 6.9 % (1.0-10.0) Eosinophils (%) (Auto) 2.6 % (0.0-3.0) Basophils (%) (Auto) 0.9 % (0.0-2.0) Prothrombin Time 10.4 SEC (9.30-11.50) Prothrombin Time INR 1.0 (0.9-1.1) PTT 26 SEC (23-33) Sodium Level 134 MMOL/L (136-145) L Potassium Level 4.9 MMOL/L (3.5-5.1) Chloride Level 103 MMOL/L (98-107) Carbon Dioxide Level 21 MMOL/L (21-32) Anion Gap 10 mmol/L (5-15) Blood Urea Nitrogen 33 mg/dL (7-18) H Creatinine 1.2 MG/DL (0.55-1.30) Estimate Glomerular Filtration Rate mL/min (>60) Glucose Level 196 MG/DL (74-106) H Calcium Level 8.3 MG/DL (8.5-10.1) L Total Bilirubin 0.8 MG/DL (0.2-1.0) Aspartate Amino Transferase (AST) 17 U/L (15-37) Alanine Aminotransferase (ALT) 16 U/L (12-78) Alkaline Phosphatase 119 U/L (46-116) H Total Creatine Kinase 239 U/L (26-308) Creatine Kinase MB 1.0 NG/ML (0.0-3.6) Creatine Kinase MB Relative Index 0.4 Troponin I 0.000 ng/mL (0.000-0.056) Total Protein 7.1 G/DL (6.4-8.2) Albumin 3.4 G/DL (3.4-5.0) Globulin 3.7 g/dL Albumin/Globulin Ratio 0.9 (1.0-2.7) L Lipase 210 U/L (73-393) EKG Diagnostic Results EKG Time: 18:31 EP Interpretation: NSR, rate 75, QTc 419, no acute ST elevations, normal axis Rhythm Strip Diag. Results Rhythm Strip Time: 18:39 EP Interpretation: yes Rate: 67 Rhythm: NSR, no PVC's, no ectopy Chest X-Ray Diagnostic Results Chest X-Ray Diagnostic Results : Chest X-Ray Ordered: Yes # of Views/Limited/Complete: 1 View Indication: Chest Pain EP Interpretation: Yes Interpretation: no consolidation, no effusion, no pneumothorax, no acute cardiopulmonary disease Impression: No acute disease Electronically Signed by: Alexei Armstrong MD Last Vital Signs Date Time Temp Pulse Resp B/P (MAP) Pulse Ox O2 Delivery O2 Flow Rate FiO2 02/10/19 18:24 97.9 18 122/61 96 Room Air 02/10/19 18:11 74 Disposition: HOME, SELF-CARE Condition: Stable Scripts Ferrous Sulfate (FERROUS SULFATE) 325 Mg Tablet.dr 325 MG ORAL BID, #60 TAB 0 Refills Prov: Alexei Armstrong MD 02/10/19 Referrals: [facility] Mikey Lopez. [facility] Patient Instructions: Chest Contusion, [id number], Hand Contusion, Easy-to- Read, Iron Deficiency Anemia, Adult, [id number] Additional Instructions: The patient was provided with discharge instructions, notified to follow-up with a primary care doctor and or specialist in the next 24-48 hours, and to return to the ED if they have worsening of their symptoms. Please note that this report is being documented using [employer] technology. This can lead to erroneous entry secondary to incorrect interpretation by the dictating instrument. PLEASE OBTAIN MAMMOGRAM AN OUTPATIENT PLEASE FOLLOW-UP WITH GI AND PCP FOR ANEMIA WORK-UP WILL NEED REPEAT CBC 2018 Alexei Armstrong MD Feb 10, 2019 18:35
[2019-02-10 18:52] VITALS: BP 118/93
--- NOTE | 2019-02-10 18:53 | NUR ---
ED Nurse Note: pt walked in with family . pt and family stated that there is bruising to left breast . Pt denies any pain neglect or abuse when asked in [place]. SAHIL frank done pt on monitor vss. Blood sent to lab will monitor.
--- NOTE | 2019-02-10 18:59 | NUR ---
HAND-OFF: Report given to Pura MADDEN.
--- NOTE | 2019-02-10 19:00 | NUR ---
ED Nurse Note: report received from Carmencita Villanueva RN. Pt in bed awake, no acute distress is noted. VSS. family members by bedside.
[2019-02-10 19:11] LABS: HEMATOCRIT 22.4 % (37.0-47.0); HEMOGLOBIN 7.8 G/DL (12.0-16.0); MEAN CORPUSCULAR VOLUME 92 FL (80-99); PLATELET COUNT 233 K/UL (150-450); RED BLOOD COUNT 2.44 M/UL (4.20-5.40); RED CELL DISTRIBUTION WIDTH 12.1 % (11.6-14.8); WHITE BLOOD COUNT 8.7 K/UL (4.8-10.8)
[2019-02-10 19:12] LABS: BASOPHILS % (AUTO) 0.9 % (0.0-2.0); EOSINOPHILS % (AUTO) 2.6 % (0.0-3.0); LYMPHOCYTES % (AUTO) 23.4 % (20.0-45.0); MONOCYTES % (AUTO) 6.9 % (1.0-10.0); NEUTROPHILS % (AUTO) 66.2 % (45.0-75.0)
[2019-02-10 19:17] LABS: ANION GAP 10 mmol/L (5-15); BLOOD UREA NITROGEN 33 mg/dL (7-18); CALCIUM 8.3 MG/DL (8.5-10.1); CARBON DIOXIDE 21 MMOL/L (21-32); CHLORIDE 103 MMOL/L (98-107); CREATININE 1.2 MG/DL (0.55-1.30); POTASSIUM 4.9 MMOL/L (3.5-5.1); SODIUM 134 MMOL/L (136-145)
--- NOTE | 2019-02-10 19:20 | Diagnostic Imaging Report ---
History: CP Exam: XR CXR 1 VIEW Comparison: 11 12 2018 FINDINGS: The lungs are clear. The pulmonary vascularity appears within limits. The cardiac and mediastinal contours appear within limits. The visualized osseous structures appear within limits. IMPRESSION: No evidence of acute disease.
[2019-02-10] MEDS ORDERED: FERROUS SULFAT325 M2 ORAL (19:26)
[2019-02-10 19:30] LABS: ALANINE AMINOTRANSFERASE 16 U/L (12-78); ALBUMIN 3.4 G/DL (3.4-5.0); ALBUMIN/GLOBULIN RATIO 0.9 (1.0-2.7); ALKALINE PHOSPHATASE 119 U/L (46-116); ASPARTATE AMINO TRANSFERASE 17 U/L (15-37); BILIRUBIN,TOTAL 0.8 MG/DL (0.2-1.0); CREATINE KINASE 239 U/L (26-308)
[2019-02-10 19:40] VITALS: BP 139/84
--- NOTE | 2019-02-10 19:40 | NUR ---
ER DISCHARGE NOTE: Patient is cleared to be discharged per ERMD, pt is aox4, on room air, with stable vital signs. pt was given dc and prescription instructions, pt was able to verbalize understanding, pt id band and iv site removed without complications. pt is able to ambulate with steady gait. pt took all belongings.
--- NOTE | 2019-02-12 17:26 | Cardiology Report ---
APPROVED REPORT EKG Measurement Heart [id number] Normal sinus rhythm with sinus arrhythmia Nonspecific ST abnormality Abnormal ECG
== END 2019-02-10 19:40 | disposition home or self-care (01) ==
LOC: EMR 18:33
DX: S20.01XA Contusion of right breast, initial encounter (principal); I10 Essential (primary) hypertension; E11.9 Type 2 diabetes mellitus without complications; D64.9 Anemia, unspecified; R07.9 Chest pain, unspecified; X58.XXXA Exposure to other specified factors, initial encounter; Y92.9 Unspecified place or not applicable
CPT/HCPCS: 36415; 71045; 80053; 82550; 82553; 83690; 84484; 85025; 85610; 85730; 93005; Z7502; 99284

== ENCOUNTER 2020-02-16 10:29 | Inpatient (IN) | payer MEDICAID ==
[2020-02-16] VITALS (7 sets, daily range): BP systolic 102–134; BP diastolic 50–72
[~2020-02-16] VITALS: Ht 165.1 cm; Wt 49.3 kg
[~2020-02-16 10:29] MED LIST changes: +CEPHALEXIN500 MG ORAL; +FERROUS SULFAT325 M2 ORAL; +SEROQUEL25 MG ORAL
[2020-02-16] MEDS ORDERED: Vancomycin 1 GM in NS 275 ML IV ONE (11:00)
[2020-02-16] MEDS ORDERED: Azithromycin 500 MG in NS 275 ML IV ONE (11:00)
[2020-02-16] MEDS ORDERED: Cefepime HCl 2 GM in NS 110 ML IV ONE (11:00)
--- NOTE | 2020-02-16 11:08 | Emergency Room Report ---
History of Present Illness General Chief Complaint: Generalized Weakness Source: Medical Record Present Illness HPI 74-year-old female history of hypertension hyperlipidemia diabetes, history of alcohol use in the past presents with altered mental status, hypoxia presenting from retirement, history is limited due to patient's altered mental status, patient is confused patient required supplemental O2 patient presents for evaluation and treatment Allergies: Coded Allergies: NO KNOWN DRUG ALLERGIES (Verified Allergy, Unknown, 06/09/17) COVID-19 Screening Contact w/high risk pt: Yes Experienced COVID-19 symptoms?: Yes COVID-19 Testing performed [facility]: Yes - 01/04/2020 (-) COVID-19 Screening: Negative COVID-19 COVID-19 Testing Source: Nasopharyngeal Patient History Limited by: medical condition - Altered mental status Past Medical History: see triage record, old chart reviewed Reviewed Nursing Documentation: PMH: Agreed; PSxH: Agreed Nursing Documentation-PMH Hx Cardiac Problems: Yes Hx Hypertension: Yes Hx Diabetes: Yes Hx Cancer: No Hx Gastrointestinal Problems: Yes Hx Neurological Problems: Yes Hx Memory Loss: Yes Hx Concentration Difficulty: Yes Hx Dizziness: Yes Hx Weakness: Yes Hx Fatigue: Yes Review of Systems All Other Systems: limited - Altered mental status Physical Exam Vital Signs Date Time Temp Pulse Resp B/P (MAP) Pulse Ox O2 Delivery O2 Flow Rate FiO2 02/16/20 10:40 98.2 85 22 124/65 (84) 94 Simple Mask 5.0 Sp02 EP Interpretation: reviewed, abnormal - Hypoxic General Appearance: mild distress, cachetic Head: normocephalic, atraumatic Eyes: bilateral eye PERRL, bilateral eye EOMI ENT: uvula midline, dry mucus membranes Neck: supple, thyroid normal, supple/symm/no masses Respiratory: lungs clear, accessory muscle use Cardiovascular #1: normal peripheral pulses, regular rate, rhythm, no edema, no gallop, no murmur Gastrointestinal: non tender, soft, no guarding, no rebound Musculoskeletal: normal inspection Neurologic: alert, other - Altered Psychiatric: anxious Skin: no rash, warm/dry Procedures Critical Care Time Critical Care Time Given the critical condition in which the patient arrived, the patient was immediately assessed by myself and the nurse, and cardiac monitoring initiated due to the potential for rapid decompensation of the patient's clinical condition. During the course of the patient's stay, I spent a considerable amount of time at the bedside performing serial re-evaluations of the patient's hemodynamic and clinical status because of the recognized potential threat to life or limb in this condition. I then had a chance to review not only all of the available current laboratory and radiographic studies obtained today, but I also reviewed old records available to me at the time. Additionally, any ancillary information available including food manager records were reviewed. Sequential vital signs were obtained. Critical Care time of 31 minutes was performed exclusive of billable procedures. Medical Decision Making Diagnostic Impression: Primary Impression: Altered mental status Qualified Codes: R41.82 - Altered mental status, unspecified Additional Impressions: Sepsis Qualified Codes: A41.9 - Sepsis, unspecified organism Pneumonia Qualified Codes: J18.9 - Pneumonia, unspecified organism ER Course 74-year-old female presents with altered mental status differential diagnosis includes sepsis, pneumonia, UTI, electrolyte imbalance Patient found to be hypoxic with a left lower lobe consolidation and effusion patient will be started on broad-spectrum antibiotics cefepime, Vanco, azithromycin Patient given fluids Patient admitted to Dr. Mckeon Laboratory Tests Test 02/16/20 11:06 White Blood Count 11.7 K/UL (4.8-10.8) H Red Blood Count 2.98 M/UL (4.20-5.40) L Hemoglobin 9.5 G/DL (12.0-16.0) L Hematocrit 28.8 % (37.0-47.0) L Mean Corpuscular Volume 97 FL (80-99) Mean Corpuscular Hemoglobin 31.9 PG (27.0-31.0) H Mean Corpuscular Hemoglobin Concent 32.9 G/DL (32.0-36.0) Red Cell Distribution Width 12.7 % (11.6-14.8) Platelet Count 315 K/UL (150-450) Mean Platelet Volume 6.4 FL (6.5-10.1) L Neutrophils (%) (Auto) 82.4 % (45.0-75.0) H Lymphocytes (%) (Auto) 11.0 % (20.0-45.0) L Monocytes (%) (Auto) 6.2 % (1.0-10.0) Eosinophils (%) (Auto) 0.0 % (0.0-3.0) Basophils (%) (Auto) 0.4 % (0.0-2.0) Prothrombin Time 11.1 SEC (9.30-11.50) Prothrombin Time INR 1.0 (0.9-1.1) Activated Partial Thromboplast Time 29 SEC (23-33) Urine Color Yellow Urine Appearance Clear Urine pH 5 (4.5-8.0) Urine Specific [place] 1.015 (1.005-1.035) Urine Protein 2+ (NEGATIVE) H Urine Glucose (UA) Negative (NEGATIVE) Urine Ketones Negative (NEGATIVE) Urine Blood Negative (NEGATIVE) Urine Nitrite Negative (NEGATIVE) Urine Bilirubin Negative (NEGATIVE) Urine Urobilinogen 1 MG/DL (0.0-1.0) H Urine Leukocyte Esterase 1+ (NEGATIVE) H Urine RBC 0-2 /HPF (0 - 2) Urine WBC 2-4 /HPF (0 - 2) Urine Squamous Epithelial Cells Moderate /LPF (NONE/OCC) H Urine Bacteria Few /HPF (NONE) Urine Granular Casts 0-2 /LPF (NONE) H Sodium Level 150 MMOL/L (136-145) H Potassium Level 4.5 MMOL/L (3.5-5.1) Chloride Level 115 MMOL/L (98-107) H Carbon Dioxide Level 27 MMOL/L (21-32) Anion Gap 8 mmol/L (5-15) Blood Urea Nitrogen 48 mg/dL (7-18) H Creatinine 1.8 MG/DL (0.55-1.30) H Estimated Glomerular Filtration Rate 27.4 mL/min (>60) Glucose Level 173 MG/DL (74-106) H Lactic Acid Level 1.20 mmol/L (0.4-2.0) Calcium Level 8.8 MG/DL (8.5-10.1) Phosphorus Level 3.3 MG/DL (2.5-4.9) Magnesium Level 2.1 MG/DL (1.8-2.4) Total Bilirubin 0.4 MG/DL (0.2-1.0) Aspartate Amino Transferase (AST) 8 U/L (15-37) L Alanine Aminotransferase (ALT) 9 U/L (12-78) L Alkaline Phosphatase 121 U/L (46-116) H Troponin I 0.000 ng/mL (0.000-0.056) Pro-B-Type Natriuretic Peptide 9663 pg/mL (0-125) H Total Protein 7.2 G/DL (6.4-8.2) Albumin 2.1 G/DL (3.4-5.0) L Globulin 5.1 g/dL Albumin/Globulin Ratio 0.4 (1.0-2.7) L Lipase 60 U/L (73-393) L Microbiology Date/Time Source Procedure Growth Status 02/16/20 11:06 Nasopharynx SARS-CoV-2 RdRp Gene Assay - Final Complete EKG Diagnostic Results EKG Time: 11:13 EP Interpretation: Sinus tachycardia, rate 103, QTc 442, no acute ST elevations, normal axis Rhythm Strip Diag. Results Rhythm Strip Time: 11:07 EP Interpretation: yes Rate: 81 Rhythm: NSR, no PVC's, no ectopy Chest X-Ray Diagnostic Results Chest X-Ray Diagnostic Results : Chest X-Ray Ordered: Yes # of Views/Limited/Complete: 1 View Indication: Shortness of Breath EP Interpretation: Yes Interpretation: other - Left pleural effusion, left consolidation Impression: Other - Pneumonia Electronically Signed by: Alexei Armstrong MD Last Vital Signs Date Time Temp Pulse Resp B/P (MAP) Pulse Ox O2 Delivery O2 Flow Rate FiO2 02/16/20 10:40 98.2 85 22 124/65 (84) 94 Simple Mask 5.0 Disposition: ADMITTED INPATIENT Condition: Stable Referrals: NOT CHOSEN IPA/,REFERRING (PCP) Evaluation Problems: (1) Sepsis ICD Codes: A41.9 - Sepsis, unspecified organism Qualifiers: Qualified Codes: A41.9 - Sepsis, unspecified organism SNOMED: 03385690 (2) Acute metabolic encephalopathy ICD Codes: G93.41 - Metabolic encephalopathy SNOMED: 83061360, 322685983 (3) ATN (acute tubular necrosis) ICD Codes: N17.0 - Acute kidney failure with tubular necrosis SNOMED: 04610660 (4) Generalized weakness ICD Codes: R53.1 - Weakness SNOMED: 92294440 (5) Pneumonia ICD Codes: J18.9 - Pneumonia, unspecified organism Qualifiers: Qualified Codes: J18.9 - Pneumonia, unspecified organism SNOMED: 290473102 (6) Diabetes mellitus ICD Codes: E11.9 - Type 2 diabetes mellitus without complications SNOMED: 79998698 Focused Exam Allergies: Coded Allergies: NO KNOWN DRUG ALLERGIES (Verified Allergy, Unknown, 1/17/18) Date Exam Occurred: Feb 16, 2020 Time Exam Occurred: 12:36 Laboratory Studies Laboratory Tests Test 02/16/20 11:06 White Blood Count 11.7 K/UL (4.8-10.8) H Red Blood Count 2.98 M/UL (4.20-5.40) L Hemoglobin 9.5 G/DL (12.0-16.0) L Hematocrit 28.8 % (37.0-47.0) L Mean Corpuscular Volume 97 FL (80-99) Mean Corpuscular Hemoglobin 31.9 PG (27.0-31.0) H Mean Corpuscular Hemoglobin Concent 32.9 G/DL (32.0-36.0) Red Cell Distribution Width 12.7 % (11.6-14.8) Platelet Count 315 K/UL (150-450) Mean Platelet Volume 6.4 FL (6.5-10.1) L Neutrophils (%) (Auto) 82.4 % (45.0-75.0) H Lymphocytes (%) (Auto) 11.0 % (20.0-45.0) L Monocytes (%) (Auto) 6.2 % (1.0-10.0) Eosinophils (%) (Auto) 0.0 % (0.0-3.0) Basophils (%) (Auto) 0.4 % (0.0-2.0) Prothrombin Time 11.1 SEC (9.30-11.50) Prothromb Time International Ratio 1.0 (0.9-1.1) Activated Partial Thromboplast Time 29 SEC (23-33) Urine Color Yellow Urine Appearance Clear Urine pH 5 (4.5-8.0) Urine Specific [place] 1.015 (1.005-1.035) Urine Protein 2+ (NEGATIVE) H Urine Glucose (UA) Negative (NEGATIVE) Urine Ketones Negative (NEGATIVE) Urine Blood Negative (NEGATIVE) Urine Nitrite Negative (NEGATIVE) Urine Bilirubin Negative (NEGATIVE) Urine Urobilinogen 1 MG/DL (0.0-1.0) H Urine Leukocyte Esterase 1+ (NEGATIVE) H Urine RBC 0-2 /HPF (0 - 2) Urine WBC 2-4 /HPF (0 - 2) Urine Squamous Epithelial Cells Moderate /LPF (NONE/OCC) H Urine Bacteria Few /HPF (NONE) Urine Granular Casts 0-2 /LPF (NONE) H Sodium Level 150 MMOL/L (136-145) H Potassium Level 4.5 MMOL/L (3.5-5.1) Chloride Level 115 MMOL/L (98-107) H Carbon Dioxide Level 27 MMOL/L (21-32) Anion Gap 8 mmol/L (5-15) Blood Urea Nitrogen 48 mg/dL (7-18) H Creatinine 1.8 MG/DL (0.55-1.30) H Estimat Glomerular Filtration Rate 27.4 mL/min (>60) Glucose Level 173 MG/DL (74-106) H Lactic Acid Level 1.20 mmol/L (0.4-2.0) Calcium Level 8.8 MG/DL (8.5-10.1) Phosphorus Level 3.3 MG/DL (2.5-4.9) Magnesium Level 2.1 MG/DL (1.8-2.4) Total Bilirubin 0.4 MG/DL (0.2-1.0) Aspartate Amino Transf (AST/SGOT) 8 U/L (15-37) L Alanine Aminotransferase (ALT/SGPT) 9 U/L (12-78) L Alkaline Phosphatase 121 U/L (46-116) H Troponin I 0.000 ng/mL (0.000-0.056) Pro-B-Type Natriuretic Peptide 9663 pg/mL (0-125) H Total Protein 7.2 G/DL (6.4-8.2) Albumin 2.1 G/DL (3.4-5.0) L Globulin 5.1 g/dL Albumin/Globulin Ratio 0.4 (1.0-2.7) L Lipase 60 U/L (73-393) L Vital Signs Last 24 Hour Vital Signs Date Time Temp Pulse Resp B/P (MAP) Pulse Ox O2 Delivery O2 Flow Rate FiO2 02/16/20 11:00 85 22 Simple Mask 3.0 02/16/20 10:40 98.2 85 22 124/65 (84) 94 Simple Mask 5.0 Respiratory Exam: Decreased Breath Sounds Cardiovascular Exam: S1, S2 Capillary Refill: Less Than 2 Seconds Peripheral Pulse: Strong Pulse Location: Radial Skin Exam: Normal Alexei Fraser MD Feb 16, 2020 11:07
[2020-02-16] MEDS ORDERED: ATIVAN0.5 MG ORAL (11:26)
[2020-02-16 11:28] LABS: BASOPHILS % (AUTO) 0.4 % (0.0-2.0); HEMATOCRIT 28.8 % (37.0-47.0); HEMOGLOBIN 9.5 G/DL (12.0-16.0); MEAN CORPUSCULAR VOLUME 97 FL (80-99); MONOCYTES % (AUTO) 6.2 % (1.0-10.0); NEUTROPHILS % (AUTO) 82.4 % (45.0-75.0); PLATELET COUNT 315 K/UL (150-450); RED BLOOD COUNT 2.98 M/UL (4.20-5.40); RED CELL DISTRIBUTION WIDTH 12.7 % (11.6-14.8); WHITE BLOOD COUNT 11.7 K/UL (4.8-10.8)
[2020-02-16 11:34] LABS: APPEARANCE,URINE CLEAR; BILIRUBIN, URINE NEGATIVE (NEGATIVE); GLUCOSE, URINE (UA) NEGATIVE (NEGATIVE); KETONES,URINE NEGATIVE (NEGATIVE); LEUKOCYTE ESTERASE ,URINE 1+ (NEGATIVE); NITRITE,URINE NEGATIVE (NEGATIVE); PH,URINE 5 (4.5-8.0); PROTEIN,URINE 2+ (NEGATIVE); UROBILINOGEN,URINE 1 MG/DL (0.0-1.0)
[2020-02-16 11:36] LABS: COLOR,URINE YELLOW
[2020-02-16 11:38] LABS: CALCIUM 8.8 MG/DL (8.5-10.1); CREATININE 1.8 MG/DL (0.55-1.30); POTASSIUM 4.5 MMOL/L (3.5-5.1)
[2020-02-16] MEDS ORDERED: ATORVASTATIN CA80 MG ORAL (11:48)
[2020-02-16] MEDS ORDERED: CARVEDILOL3.125 MG ORAL (11:48)
[2020-02-16 11:49] LABS: ALBUMIN 2.1 G/DL (3.4-5.0); ALBUMIN/GLOBULIN RATIO 0.4 (1.0-2.7); BILIRUBIN,TOTAL 0.4 MG/DL (0.2-1.0); PHOSPHORUS 3.3 MG/DL (2.5-4.9)
[2020-02-16] MEDS ORDERED: Miralax 17gm pkt ORAL PRN (12:15)
[2020-02-16] MEDS ORDERED: Nitroglycerin Subl 0.4mg tab SL PRN (12:15)
[2020-02-16] MEDS ORDERED: Albuterol/Ipratropium 3ml neb HHN PRN (12:15)
[2020-02-16] MEDS ORDERED: Promethazine/Codeine 5ml UD ORAL PRN (12:15)
--- NOTE | 2020-02-16 12:17 | Consultation ---
History of Present Illness General Date patient seen: Feb 16, 2020 Chief Complaint: Generalized Weakness Present Illness HPI 74-year-old female with past medical history of diabetes and hypercholesterolemia, ETOH abuse, group home resident presented to emergency room with cc of increasing weakness. The patient is a poor historian and cannot give any detailed history. she was found to have LLL pneumonia, ATN, hypernatremia and is admitted for further management. Allergies: Coded Allergies: NO KNOWN DRUG ALLERGIES (Verified Allergy, Unknown, 06/09/17) Medication History Scheduled Aspirin* (Aspirin*), 81 MG ORAL DAILY, (Reported) Atorvastatin (Lipitor), 80 MG ORAL BEDTIME, (Reported) Atorvastatin Calcium* (Lipitor*), 80 MG ORAL BEDTIME, (Reported) Carvedilol* (Carvedilol*), 3.125 MG ORAL EVERY 12 HOURS, (Reported) Carvedilol* (Carvedilol*), 3.125 MG ORAL EVERY 12 HOURS, (Reported) Cephalexin* (Keflex*), 500 MG ORAL EVERY 12 HOURS Clopidogrel Bisulfate* (Plavix*), 75 MG ORAL DAILY, (Reported) Ferrous Sulfate (Ferrous Sulfate), 325 MG ORAL BID Gabapentin* (Gabapentin*), 600 MG ORAL TID, (Reported) Lisinopril* (Lisinopril*), 2.5 MG ORAL DAILY, (Reported) Lorazepam* (Ativan*), 0.5 MG ORAL TWICE A DAY, (Reported) Metformin Hcl* (Metformin Hcl*), 500 MG ORAL TWICE A DAY, (Reported) Naproxen (Naproxen), 500 MG PO TWICE A DAY, (Reported) Olanzapine (Olanzapine), 2.5 MG ORAL BID Quetiapine Fumarate* (Seroquel*), 25 MG ORAL BID, (Reported) Ranitidine Hcl* (Zantac*), 150 MG ORAL TWICE A DAY, (Reported) Scheduled PRN Ibuprofen (Motrin), 400 MG ORAL Q6H PRN for For Pain, (Reported) Miscellaneous Medications Fluocinonide/Emollient (Fluocinonide-E 0.05% Cream), 15 GM TP, (Reported) Patient History Healthcare decision maker Resuscitation status Advanced Directive on File Past Medical/Surgical History Past Medical/Surgical History: (1) Diabetes mellitus (2) Alcohol dependence (3) Hypertension, uncontrolled Review of Systems All Other Systems: negative except mentioned in HPI Physical Exam General Appearance: WD/WN, no apparent distress, alert Lines, tubes and drains: peripheral Neck: non-tender, normal alignment, supple Respiratory/Chest: chest wall non-tender, lungs clear, normal breath sounds Breasts: no masses Cardiovascular/Chest: normal peripheral pulses, normal rate Abdomen: normal bowel sounds, non tender, hyperactive bowel sounds Extremities: normal range of motion Last 24 Hour Vital Signs Date Time Temp Pulse Resp B/P (MAP) Pulse Ox O2 Delivery O2 Flow Rate FiO2 02/16/20 10:40 98.2 85 22 124/65 (84) 94 Simple Mask 5.0 Laboratory Tests Test 02/16/20 11:06 White Blood Count 11.7 K/UL (4.8-10.8) H Red Blood Count 2.98 M/UL (4.20-5.40) L Hemoglobin 9.5 G/DL (12.0-16.0) L Hematocrit 28.8 % (37.0-47.0) L Mean Corpuscular Volume 97 FL (80-99) Mean Corpuscular Hemoglobin 31.9 PG (27.0-31.0) H Mean Corpuscular Hemoglobin Concent 32.9 G/DL (32.0-36.0) Red Cell Distribution Width 12.7 % (11.6-14.8) Platelet Count 315 K/UL (150-450) Mean Platelet Volume 6.4 FL (6.5-10.1) L Neutrophils (%) (Auto) 82.4 % (45.0-75.0) H Lymphocytes (%) (Auto) 11.0 % (20.0-45.0) L Monocytes (%) (Auto) 6.2 % (1.0-10.0) Eosinophils (%) (Auto) 0.0 % (0.0-3.0) Basophils (%) (Auto) 0.4 % (0.0-2.0) Prothrombin Time 11.1 SEC (9.30-11.50) Prothromb Time International Ratio 1.0 (0.9-1.1) Activated Partial Thromboplast Time 29 SEC (23-33) Urine Color Yellow Urine Appearance Clear Urine pH 5 (4.5-8.0) Urine Specific [place] 1.015 (1.005-1.035) Urine Protein 2+ (NEGATIVE) H Urine Glucose (UA) Negative (NEGATIVE) Urine Ketones Negative (NEGATIVE) Urine Blood Negative (NEGATIVE) Urine Nitrite Negative (NEGATIVE) Urine Bilirubin Negative (NEGATIVE) Urine Urobilinogen 1 MG/DL (0.0-1.0) H Urine Leukocyte Esterase 1+ (NEGATIVE) H Urine RBC 0-2 /HPF (0 - 2) Urine WBC 2-4 /HPF (0 - 2) Urine Squamous Epithelial Cells Moderate /LPF (NONE/OCC) H Urine Bacteria Few /HPF (NONE) Urine Granular Casts 0-2 /LPF (NONE) H Sodium Level 150 MMOL/L (136-145) H Potassium Level 4.5 MMOL/L (3.5-5.1) Chloride Level 115 MMOL/L (98-107) H Carbon Dioxide Level 27 MMOL/L (21-32) Anion Gap 8 mmol/L (5-15) Blood Urea Nitrogen 48 mg/dL (7-18) H Creatinine 1.8 MG/DL (0.55-1.30) H Estimat Glomerular Filtration Rate 27.4 mL/min (>60) Glucose Level 173 MG/DL (74-106) H Lactic Acid Level 1.20 mmol/L (0.4-2.0) Calcium Level 8.8 MG/DL (8.5-10.1) Phosphorus Level 3.3 MG/DL (2.5-4.9) Magnesium Level 2.1 MG/DL (1.8-2.4) Total Bilirubin 0.4 MG/DL (0.2-1.0) Aspartate Amino Transf (AST/SGOT) 8 U/L (15-37) L Alanine Aminotransferase (ALT/SGPT) 9 U/L (12-78) L Alkaline Phosphatase 121 U/L (46-116) H Troponin I 0.000 ng/mL (0.000-0.056) Pro-B-Type Natriuretic Peptide 9663 pg/mL (0-125) H Total Protein 7.2 G/DL (6.4-8.2) Albumin 2.1 G/DL (3.4-5.0) L Globulin 5.1 g/dL Albumin/Globulin Ratio 0.4 (1.0-2.7) L Lipase 60 U/L (73-393) L Microbiology Date/Time Source Procedure Growth Status 02/16/20 11:06 Nasopharynx SARS-CoV-2 RdRp Gene Assay - Final Complete Height (Feet): 5 Height (Inches): 6.00 Weight (Pounds): 125 Medications Current Medications Medications (Trade) Dose Ordered Sig/Kannan Route PRN Reason Start Time Stop Time Status Last Admin Dose Admin Acetaminophen (Tylenol) 650 mg Q4H PRN ORAL fever 02/16/20 12:15 03/17/20 12:14 Albuterol/ Ipratropium (Albuterol/ Ipratropium) 3 ml Q4H PRN HHN Shortness of Breath 02/16/20 12:15 02/21/20 12:14 Cefepime HCl 1 gm/ Dextrose 55 ml @ 110 mls/hr Q24H IVPB 02/17/20 09:00 02/24/20 08:59 Dextrose 1,000 ml @ 100 mls/hr Q10H IV 02/16/20 12:15 03/17/20 12:14 UNV Dextrose (Dextrose 50%) 25 ml Q30M PRN IV Hypoglycemia 02/16/20 12:15 05/16/20 12:14 Dextrose (Dextrose 50%) 50 ml Q30M PRN IV Hypoglycemia 02/16/20 12:15 05/16/20 12:14 Heparin Sodium (Porcine) (Heparin 5000 units/ml) 5,000 units EVERY 12 HOURS SUBQ 02/16/20 21:00 04/01/20 20:59 Insulin Aspart (NovoLOG) BEFORE MEALS AND HS SUBQ 02/16/20 16:30 05/16/20 16:29 UNV Nitroglycerin (Ntg) 0.4 mg Q5M PRN SL Prn Chest Pain 02/16/20 12:15 03/17/20 12:14 Ondansetron HCl (Zofran) 4 mg Q6H PRN IVP Nausea & Vomiting 02/16/20 12:15 03/17/20 12:14 Polyethylene Glycol (Miralax) 17 gm DAILYPRN PRN ORAL Constipation 02/16/20 12:15 03/17/20 12:14 Promethazine HCl/ Codeine (Phenergan with Codeine) 5 ml Q4H PRN ORAL For Cough 02/16/20 12:15 03/17/20 12:14 Temazepam (Restoril) 15 mg HSPRN PRN ORAL Insomnia 02/16/20 12:15 02/23/20 12:14 Vancomycin HCl (Vanco pharmacy to dose) 1 ea DAILY PRN MISC Per rx protocol 02/16/20 12:15 03/17/20 12:14 UNV Vancomycin HCl 1 gm/Sodium Chloride 275 ml @ 183.3 mls/ hr ONCE ONCE IV 02/16/20 11:00 02/16/20 12:30 Assessment/Plan Problem List: (1) Sepsis ICD Codes: A41.9 - Sepsis, unspecified organism SNOMED: 09922749 Qualifiers: Qualified Codes: A41.9 - Sepsis, unspecified organism (2) Acute metabolic encephalopathy ICD Codes: G93.41 - Metabolic encephalopathy SNOMED: 83323488, 757410779 (3) ATN (acute tubular necrosis) ICD Codes: N17.0 - Acute kidney failure with tubular necrosis SNOMED: 35098561 (4) Generalized weakness ICD Codes: R53.1 - Weakness SNOMED: 42732722 (5) Pneumonia ICD Codes: J18.9 - Pneumonia, unspecified organism SNOMED: 394911810 Qualifiers: Qualified Codes: J18.9 - Pneumonia, unspecified organism (6) Diabetes mellitus ICD Codes: E11.9 - Type 2 diabetes mellitus without complications SNOMED: 92402776 Assessment/Plan: wells culture iv abx iv fluids to correct the hypernatremia slidng scale swallow study when better Oscar Quezada MD Feb 16, 2020 12:17
[2020-02-16] MEDS ORDERED: Varibar Pudding 230ml MC PRN (12:30)
[2020-02-16] MEDS ORDERED: Varibar Honey 250ml MC PRN (12:30)
[2020-02-16] MEDS ORDERED: Varibar Nectar 240ml MC PRN (12:30)
[2020-02-16] MEDS ORDERED: Varibar Thin Liquid powder 148gm MC PRN (12:30)
[2020-02-16] MEDS ORDERED: FAMOTIDINE20 MG ORAL (12:42)
[2020-02-16] MEDS ORDERED: LEVSIN0.125 MG SL (12:42)
[2020-02-16] MEDS ORDERED: ZOFRAN ODT8 MG ORAL (12:48)
[2020-02-16] MEDS ORDERED: METHADONE HCL5 MG ORAL (12:48)
[2020-02-16] MEDS ORDERED: TEMAZEPAM15 MG ORAL (12:48)
--- NOTE | 2020-02-16 15:19 | History & Physical ---
History and Physical History & Physicial -1842 Ari Mckeon MD Feb 16, 2020 15:19
[2020-02-16 15:38] LABS: CREATINE KINASE 20 U/L (26-308)
--- NOTE | 2020-02-16 15:58 | Diagnostic Imaging Report ---
Indication: Cough Technique: One view of the chest Comparison: 02/10/2019 Findings: Interim development of a left pleural effusion. Hazy opacity throughout the left hemithorax is likely related to such, although could also indicate some infiltrate. Right lung and pleural space remain clear. The heart size is normal Impression: Left pleural effusion. Hazy generalized opacity probably related to such but could also indicate infiltrate
[2020-02-16] MEDS: NovoLOG Insulin Flexpen SUBQ SCH ×2 (16:30→20:51)
[2020-02-16] MEDS: Heparin 5000 units/ml inj SUBQ SCH (20:50)
[2020-02-17] VITALS: BP 105/44
[2020-02-17 04:00] VITALS: BP 127/49
[2020-02-17] MEDS: NovoLOG Insulin Flexpen SUBQ SCH ×4 (05:41→21:00)
[2020-02-17 08:00] VITALS: BP 141/32
--- NOTE | 2020-02-17 08:08 | Consultation ---
History of Present Illness General Date patient seen: Feb 17, 2020 Time patient seen: 11:00 Chief Complaint: Generalized Weakness Referring physician: PCP Reason for Consultation: Pneumonia Present Illness HPI 74-year-old female history of hypertension hyperlipidemia diabetes, history of alcohol use in the past presents with altered mental status, hypoxia presenting from alf, history is limited due to patient's altered mental status, patient is confused patient required supplemental O2 patient presents for evaluation and treatment, found to have pna among other issues. ID c/s given inf ection. History obtained from daughter at bedside, reports pt isn't making sense and wasn't eating at SNF, so was brought in. She isn't aware of any fevers or other issues. Pt denies pain. No allergies to abx. Allergies: Coded Allergies: NO KNOWN DRUG ALLERGIES (Verified Allergy, Unknown, 06/09/17) Medication History Scheduled Aspirin* (Aspirin*), 81 MG ORAL DAILY, (Reported) Atorvastatin (Lipitor), 80 MG ORAL BEDTIME, (Reported) Carvedilol* (Carvedilol*), 3.125 MG ORAL EVERY 12 HOURS, (Reported) Cephalexin* (Keflex*), 500 MG ORAL EVERY 12 HOURS Clopidogrel Bisulfate* (Plavix*), 75 MG ORAL DAILY, (Reported) Famotidine* (Pepcid 20mg tablet*), 40 MG ORAL DAILY, (Reported) Ferrous Sulfate (Ferrous Sulfate), 325 MG ORAL BID Gabapentin* (Gabapentin*), 600 MG ORAL TID, (Reported) Lisinopril* (Lisinopril*), 2.5 MG ORAL DAILY, (Reported) Lorazepam* (Ativan*), 0.5 MG ORAL TWICE A DAY, (Reported) Metformin Hcl* (Metformin Hcl*), 500 MG ORAL TWICE A DAY, (Reported) Methadone Hcl* (Methadone*), 5 MG ORAL DAILY, (Reported) Naproxen (Naproxen), 500 MG PO TWICE A DAY, (Reported) Olanzapine (Olanzapine), 2.5 MG ORAL BID Quetiapine Fumarate* (Seroquel*), 25 MG ORAL BID, (Reported) Ranitidine Hcl* (Zantac*), 150 MG ORAL TWICE A DAY, (Reported) Temazepam (Temazepam*), 15 MG ORAL BEDTIME, (Reported) Scheduled PRN Ibuprofen (Motrin), 400 MG ORAL Q6H PRN for For Pain, (Reported) Ondansetron Odt* (Zofran Odt*), 4 MG ORAL Q6H PRN for Nausea & Vomiting, (Reported) Miscellaneous Medications Fluocinonide/Emollient (Fluocinonide-E 0.05% Cream), 15 GM TP, (Reported) Hyoscyamine Sulfate (Levsin), 0.125 MG ORAL, (Reported) Patient History Healthcare decision maker Resuscitation status Advanced Directive on File Review of Systems ROS Narrative Unable to obtain 2/2 pt condition Physical Exam Physical Exam Narrative Gen: NAD in bed HEENT: NCAT, EOMI, PERRL Pulm: BL chest rise Abd: Soft, NTND Ext: No c/c/e Neuro: Awake Last 24 Hour Vital Signs Date Time Temp Pulse Resp B/P (MAP) Pulse Ox O2 Delivery O2 Flow Rate FiO2 02/17/20 04:00 61 02/17/20 04:00 97.3 62 20 127/49 (75) 93 02/17/20 00:00 59 02/17/20 00:00 96.6 57 18 105/44 (64) 93 02/16/20 21:00 Nasal Cannula 2.0 02/16/20 20:00 96.6 77 20 111/72 (85) 98 02/16/20 20:00 74 02/16/20 18:25 98.9 80 16 126/65 (85) 98 02/16/20 17:18 Nasal Cannula 2.0 02/16/20 16:00 98.9 80 16 126/65 (85) 98 02/16/20 16:00 84 02/16/20 15:20 77 13 116/51 99 Nasal Cannula 3.0 02/16/20 14:42 77 13 116/65 99 Nasal Cannula 3.0 02/16/20 12:30 81 17 102/63 99 Nasal Cannula 3.0 02/16/20 11:00 100.4 02/16/20 11:00 85 22 Simple Mask 3.0 02/16/20 11:00 82 18 118/50 99 Nasal Cannula 3.0 02/16/20 10:40 98.2 85 22 124/65 (84) 94 Simple Mask 5.0 02/16/20 10:30 79 17 134/55 99 Nasal Cannula 3.0 Intake and Output 02/16/20 02/17/20 19:00 07:00 Intake Total 2100 ml Output Total 250 ml 400 ml Balance 1850 ml -400 ml Intake Oral 0 ml IV Total 2100 ml Output Urine Total 250 ml 400 ml Laboratory Tests Test 02/16/20 11:06 White Blood Count 11.7 K/UL (4.8-10.8) H Red Blood Count 2.98 M/UL (4.20-5.40) L Hemoglobin 9.5 G/DL (12.0-16.0) L Hematocrit 28.8 % (37.0-47.0) L Mean Corpuscular Volume 97 FL (80-99) Mean Corpuscular Hemoglobin 31.9 PG (27.0-31.0) H Mean Corpuscular Hemoglobin Concent 32.9 G/DL (32.0-36.0) Red Cell Distribution Width 12.7 % (11.6-14.8) Platelet Count 315 K/UL (150-450) Mean Platelet Volume 6.4 FL (6.5-10.1) L Neutrophils (%) (Auto) 82.4 % (45.0-75.0) H Lymphocytes (%) (Auto) 11.0 % (20.0-45.0) L Monocytes (%) (Auto) 6.2 % (1.0-10.0) Eosinophils (%) (Auto) 0.0 % (0.0-3.0) Basophils (%) (Auto) 0.4 % (0.0-2.0) Prothrombin Time 11.1 SEC (9.30-11.50) Prothromb Time International Ratio 1.0 (0.9-1.1) Activated Partial Thromboplast Time 29 SEC (23-33) Urine Color Yellow Urine Appearance Clear Urine pH 5 (4.5-8.0) Urine Specific [place] 1.015 (1.005-1.035) Urine Protein 2+ (NEGATIVE) H Urine Glucose (UA) Negative (NEGATIVE) Urine Ketones Negative (NEGATIVE) Urine Blood Negative (NEGATIVE) Urine Nitrite Negative (NEGATIVE) Urine Bilirubin Negative (NEGATIVE) Urine Urobilinogen 1 MG/DL (0.0-1.0) H Urine Leukocyte Esterase 1+ (NEGATIVE) H Urine RBC 0-2 /HPF (0 - 2) Urine WBC 2-4 /HPF (0 - 2) Urine Squamous Epithelial Cells Moderate /LPF (NONE/OCC) H Urine Bacteria Few /HPF (NONE) Urine Granular Casts 0-2 /LPF (NONE) H Sodium Level 150 MMOL/L (136-145) H Potassium Level 4.5 MMOL/L (3.5-5.1) Chloride Level 115 MMOL/L (98-107) H Carbon Dioxide Level 27 MMOL/L (21-32) Anion Gap 8 mmol/L (5-15) Blood Urea Nitrogen 48 mg/dL (7-18) H Creatinine 1.8 MG/DL (0.55-1.30) H Estimat Glomerular Filtration Rate 27.4 mL/min (>60) Glucose Level 173 MG/DL (74-106) H Lactic Acid Level 1.20 mmol/L (0.4-2.0) Uric Acid 6.7 MG/DL (2.6-7.2) Calcium Level 8.8 MG/DL (8.5-10.1) Phosphorus Level 3.3 MG/DL (2.5-4.9) Magnesium Level 2.1 MG/DL (1.8-2.4) Total Bilirubin 0.4 MG/DL (0.2-1.0) Aspartate Amino Transf (AST/SGOT) 8 U/L (15-37) L Alanine Aminotransferase (ALT/SGPT) 9 U/L (12-78) L Alkaline Phosphatase 121 U/L (46-116) H Total Creatine Kinase 20 U/L (26-308) L Troponin I 0.000 ng/mL (0.000-0.056) Pro-B-Type Natriuretic Peptide 9663 pg/mL (0-125) H Total Protein 7.2 G/DL (6.4-8.2) Albumin 2.1 G/DL (3.4-5.0) L Globulin 5.1 g/dL Albumin/Globulin Ratio 0.4 (1.0-2.7) L Lipase 60 U/L (73-393) L Microbiology Date/Time Source Procedure Growth Status 02/16/20 11:06 Nasopharynx SARS-CoV-2 RdRp Gene Assay - Final Complete Height (Feet): 5 Height (Inches): 6.00 Weight (Pounds): 103 Medications Current Medications Medications (Trade) Dose Ordered Sig/Kannan Route PRN Reason Start Time Stop Time Status Last Admin Dose Admin Acetaminophen (Tylenol) 650 mg Q4H PRN ORAL fever 02/16/20 12:15 03/17/20 12:14 Albuterol/ Ipratropium (Albuterol/ Ipratropium) 3 ml Q4H PRN HHN Shortness of Breath 02/16/20 12:15 02/21/20 12:14 Barium Sulfate (Varibar Honey) 250 ml NOW PRN MC RAD 02/16/20 12:30 02/19/20 12:28 Barium Sulfate (Varibar [place]) 240 ml NOW PRN MC RAD 02/16/20 12:30 02/19/20 12:28 Barium Sulfate (Varibar Pudding) 230 ml NOW PRN MC RAD 02/16/20 12:30 02/19/20 12:28 Barium Sulfate (Varibar Thin Liquid powder) 148 gm NOW PRN MC RAD 02/16/20 12:30 02/19/20 12:28 Cefepime HCl 1 gm/ Dextrose 55 ml @ 110 mls/hr Q24H IVPB 02/17/20 09:00 02/24/20 08:59 Dextrose 1,000 ml @ 100 mls/hr Q10H IV 02/16/20 14:26 03/17/20 14:25 02/17/20 00:22 Dextrose (Dextrose 50%) 25 ml Q30M PRN IV Hypoglycemia 02/16/20 12:15 05/16/20 12:14 Dextrose (Dextrose 50%) 50 ml Q30M PRN IV Hypoglycemia 02/16/20 12:15 05/16/20 12:14 Heparin Sodium (Porcine) (Heparin 5000 units/ml) 5,000 units EVERY 12 HOURS SUBQ 02/16/20 21:00 04/01/20 20:59 02/16/20 20:50 Insulin Aspart (NovoLOG) BEFORE MEALS AND HS SUBQ 02/16/20 16:30 05/16/20 16:29 Nitroglycerin (Ntg) 0.4 mg Q5M PRN SL Prn Chest Pain 02/16/20 12:15 03/17/20 12:14 Ondansetron HCl (Zofran) 4 mg Q6H PRN IVP Nausea & Vomiting 02/16/20 12:15 03/17/20 12:14 Polyethylene Glycol (Miralax) 17 gm DAILYPRN PRN ORAL Constipation 02/16/20 12:15 03/17/20 12:14 Promethazine HCl/ Codeine (Phenergan with Codeine) 5 ml Q4H PRN ORAL For Cough 02/16/20 12:15 03/17/20 12:14 Temazepam (Restoril) 15 mg HSPRN PRN ORAL Insomnia 02/16/20 12:15 02/23/20 12:14 Vancomycin HCl (Vanco pharmacy to dose) 1 ea DAILY PRN MISC Per rx protocol 02/16/20 12:15 03/17/20 12:14 Assessment/Plan Assessment/Plan: 74yo F with: Febrile to 100.4 Leukocytosis to 11 AMS AMOS, Cr 1.8 02/15 BCx p UA 2-4 WBC COVID screen neg MRSA nares p Resp cx p CXR: Left pleural effusion. Hazy generalized opacity probably related to s uch but could also indicate infiltrate Dementia SNF resident Plan: Cont cefepime & vanco IV #1 F/u BCx, resp cx Trend WBC Trend resp status Monitor CBC/CMP Monitor resp status Monitor temp curve and hemodynamics D/w RN and pt's daughter at bedside. Thank you for this consult. [facility] will continue to follow. Rose Mary Carter M.D. Feb 17, 2020 08:08
[2020-02-17] MEDS: Cefepime HCl 1 GM in D5W 55 ML IVPB SCH (08:58)
[2020-02-17] MEDS: Heparin 5000 units/ml inj SUBQ SCH ×2 (09:02→21:46)
[2020-02-17 09:16] LABS: ALBUMIN 2.1 G/DL (3.4-5.0); ANION GAP 9 mmol/L (5-15); BLOOD UREA NITROGEN 41 mg/dL (7-18); CALCIUM 9.2 MG/DL (8.5-10.1); CARBON DIOXIDE 23 MMOL/L (21-32); CHLORIDE 109 MMOL/L (98-107); CREATININE 1.3 MG/DL (0.55-1.30); POTASSIUM 3.8 MMOL/L (3.5-5.1); SODIUM 141 MMOL/L (136-145)
[2020-02-17 09:22] LABS: % IRON SATURATION 20 % (15-50); IRON 26 ug/dL (50-175); LACTATE DEHYDROGENASE 178 U/L (81-234); TOTAL IRON BINDING CAPACITY 127 ug/dL (250-450)
[2020-02-17 10:12] LABS: BASOPHILS % (AUTO) 0.4 % (0.0-2.0); EOSINOPHILS % (AUTO) 0.8 % (0.0-3.0); HEMATOCRIT 26.3 % (37.0-47.0); HEMOGLOBIN 8.8 G/DL (12.0-16.0); MEAN CORPUSCULAR VOLUME 97 FL (80-99); MONOCYTES % (AUTO) 5.2 % (1.0-10.0); NEUTROPHILS % (AUTO) 82.6 % (45.0-75.0); PLATELET COUNT 314 K/UL (150-450); RED BLOOD COUNT 2.72 M/UL (4.20-5.40); RED CELL DISTRIBUTION WIDTH 12.5 % (11.6-14.8); WHITE BLOOD COUNT 9.4 K/UL (4.8-10.8)
[2020-02-17] MEDS ORDERED: Vancomycin 1gm/D5W 275ml IVPB ONE ×2 (11:00)
--- NOTE | 2020-02-17 11:15 | History and Physical Report ---
DATE OF ADMISSION: 02/16/2020 CHIEF COMPLAINT: Generalized weakness. HISTORY OF PRESENT ILLNESS: This is a 74-year-old female with past medical history significant for diabetes type 2, hypertension, dyslipidemia, history of alcohol abuse residing at the [facility], who presented to the emergency department due to the increased weakness. The patient is a poor historian and cannot give history completely. Shortly after initial evaluation in the emergency department, the patient was noted to have the left lower lobe pneumonia with acute kidney injury with hypernatremia and subsequently the patient was admitted to the hospital for antibiotic therapy and physical therapy. PAST MEDICAL HISTORY AND PAST SURGICAL HISTORY: As above. History of hypertension, dyslipidemia, diabetes type 2, alcohol abuse. MEDICATIONS: At the nursing facility, significant for aspirin, atorvastatin, carvedilol, Keflex, Plavix, ferrous sulfate, gabapentin, lisinopril, Ativan, metformin, naproxen, olanzapine, Seroquel, and loratadine. ALLERGIES: No known drug allergies. SOCIAL HISTORY: No smoking, alcohol, or drugs at this time. However, previously had a history of alcohol abuse. FAMILY HISTORY: Noncontributory. REVIEW OF SYSTEMS: Mostly as above. Denies any dysuria, frequency or hematuria. Denies any hemoptysis or hematochezia. Denies any bright red blood per rectum. Complained about productive cough. Denies any loss of consciousness. Denies any fall or head trauma. PHYSICAL EXAMINATION: VITAL SIGNS: On admission, temperature 98.2, pulse of 85, respirations 22, blood pressure 124/65. GENERAL: The patient awake, responsive, and in no acute distress, however, looking chronically ill-appearing patient. HEAD AND NECK: Pupils are equal and reactive to light. Extraocular movements are intact. Neck was supple. No JVD. LUNGS: Good air entry. No wheezing or rales. Poor inspiratory effort. HEART: S1, S2. Regular rhythm. No murmur or gallops. ABDOMEN: Soft, nondistended, and nontender. Positive bowel sounds. EXTREMITIES: No cyanosis, clubbing or edema. NEUROLOGIC: Cranial nerves II through XII grossly intact. The patient is moving all the extremities spontaneously. RECTAL: Refused and deferred. GENITOURINARY: Refused and deferred. PSYCHIATRIC: Mood and affect is intact. LABORATORY AND DIAGNOSTIC DATA: Laboratory on admission, WBC of 11.7, hemoglobin 9.5, hematocrit 28, platelet is 315. Sodium 150, potassium 4.5, chloride 115, bicarb 27, BUN 48, creatinine 1.8, . Lactic acid is 1.2, alkaline phosphate is 121. Troponin 0.0. Total CK is 20. ProBNP of 9663. Lipase is 60. PT of 11, INR 1.0, PTT of 29. UA has +2 protein, +1 leukocyte esterase, moderate squamous epithelial cells, few bacteria. Chest x-ray, left pleural effusion with a hazy generalized opacity probably related to , but cannot rule out any infiltrates. ASSESSMENT: 1. Generalized weakness, most likely secondary to dehydration and pneumonia. 2. Acute kidney injury with ATN. 3. Hypernatremia. 4. Dehydration and hypovolemia. 5. Anemia, most likely anemia of chronic disease. 6. Hypertension. 7. Dyslipidemia. 8. Diabetes type 2. 9. Acute metabolic encephalopathy, most likely secondary to infection as well as dehydration. PLAN: Admit the patient to monitored unit. We will start the patient on IV hydration, broad-spectrum antibiotics with vancomycin and cefepime and follow up with the laboratory in the morning. Monitor blood glucose level closely. Code status is Full Code. DVT prophylaxis heparin subcutaneous. Follow up with Dr. Quezada for Pulmonary Critical Care consultation. Ari Mckeon M.D. DR: TESSA JOB#: [id number] CC:
[2020-02-17 12:00] VITALS: BP 123/63
--- NOTE | 2020-02-17 12:09 | Internal Med Progress Note ---
Subjective Date of Service: Feb 17, 2020 Physician Name Rhys Yousif Attending Physician Ari Mckeon MD Current Medications Medications (Trade) Dose Ordered Sig/Kannan Route PRN Reason Start Time Stop Time Status Last Admin Dose Admin Acetaminophen (Tylenol) 650 mg Q4H PRN ORAL fever 02/16/20 12:15 03/17/20 12:14 Albuterol/ Ipratropium (Albuterol/ Ipratropium) 3 ml Q4H PRN HHN Shortness of Breath 02/16/20 12:15 02/21/20 12:14 Barium Sulfate (Varibar Honey) 250 ml NOW PRN MC RAD 02/16/20 12:30 02/19/20 12:28 Barium Sulfate (Varibar U[place]) 240 ml NOW PRN MC RAD 02/16/20 12:30 02/19/20 12:28 Barium Sulfate (Varibar Pudding) 230 ml NOW PRN MC RAD 02/16/20 12:30 02/19/20 12:28 Barium Sulfate (Varibar Thin Liquid powder) 148 gm NOW PRN MC RAD 02/16/20 12:30 02/19/20 12:28 Cefepime HCl 1 gm/ Dextrose 55 ml @ 110 mls/hr Q24H IVPB 02/17/20 09:00 02/24/20 08:59 02/17/20 08:58 Dextrose 1,000 ml @ 100 mls/hr Q10H IV 02/16/20 14:26 03/17/20 14:25 02/17/20 09:02 Dextrose (Dextrose 50%) 25 ml Q30M PRN IV Hypoglycemia 02/16/20 12:15 05/16/20 12:14 Dextrose (Dextrose 50%) 50 ml Q30M PRN IV Hypoglycemia 02/16/20 12:15 05/16/20 12:14 Heparin Sodium (Porcine) (Heparin 5000 units/ml) 5,000 units EVERY 12 HOURS SUBQ 02/16/20 21:00 04/01/20 20:59 02/17/20 09:02 Insulin Aspart (NovoLOG) BEFORE MEALS AND HS SUBQ 02/16/20 16:30 05/16/20 16:29 Nitroglycerin (Ntg) 0.4 mg Q5M PRN SL Prn Chest Pain 02/16/20 12:15 03/17/20 12:14 Ondansetron HCl (Zofran) 4 mg Q6H PRN IVP Nausea & Vomiting 02/16/20 12:15 03/17/20 12:14 Polyethylene Glycol (Miralax) 17 gm DAILYPRN PRN ORAL Constipation 02/16/20 12:15 03/17/20 12:14 Promethazine HCl/ Codeine (Phenergan with Codeine) 5 ml Q4H PRN ORAL For Cough 02/16/20 12:15 03/17/20 12:14 Temazepam (Restoril) 15 mg HSPRN PRN ORAL Insomnia 02/16/20 12:15 02/23/20 12:14 Vancomycin HCl (Vanco pharmacy to dose) 1 ea DAILY PRN MISC Per rx protocol 02/16/20 12:15 03/17/20 12:14 Vancomycin HCl 1 gm/Dextrose 275 ml @ 183.708 mls/hr ONCE ONCE IVPB 02/17/20 11:00 02/17/20 12:29 02/17/20 11:17 Allergies: Coded Allergies: NO KNOWN DRUG ALLERGIES (Verified Allergy, Unknown, 06/09/17) ROS Limited/Unobtainable: Yes Subjective 74 YO F admitted with gen weakness. Now LLL pneumonia/pleural effusion. Cover for Int Med-Dr Mckeon Objective Last Vital Signs Date Time Temp Pulse Resp B/P (MAP) Pulse Ox O2 Delivery O2 Flow Rate FiO2 02/17/20 11:22 Nasal Cannula 2.0 02/17/20 08:00 97.9 62 18 141/32 (68) 100 Laboratory Tests Test 02/17/20 07:20 White Blood Count 9.4 K/UL (4.8-10.8) Red Blood Count 2.72 M/UL (4.20-5.40) L Hemoglobin 8.8 G/DL (12.0-16.0) L Hematocrit 26.3 % (37.0-47.0) L Mean Corpuscular Volume 97 FL (80-99) Mean Corpuscular Hemoglobin 32.2 PG (27.0-31.0) H Mean Corpuscular Hemoglobin Concent 33.3 G/DL (32.0-36.0) Red Cell Distribution Width 12.5 % (11.6-14.8) Platelet Count 314 K/UL (150-450) Mean Platelet Volume 6.7 FL (6.5-10.1) Neutrophils (%) (Auto) 82.6 % (45.0-75.0) H Lymphocytes (%) (Auto) 11.0 % (20.0-45.0) L Monocytes (%) (Auto) 5.2 % (1.0-10.0) Eosinophils (%) (Auto) 0.8 % (0.0-3.0) Basophils (%) (Auto) 0.4 % (0.0-2.0) Erythrocyte Sedimentation Rate 122 MM/HR (0-30) H Reticulocyte Count 0.4 % (0.5-2.0) L Prothrombin Time 10.8 SEC (9.30-11.50) Prothromb Time International Ratio 1.0 (0.9-1.1) Activated Partial Thromboplast Time 33 SEC (23-33) Sodium Level 141 MMOL/L (136-145) Potassium Level 3.8 MMOL/L (3.5-5.1) Chloride Level 109 MMOL/L (98-107) H Carbon Dioxide Level 23 MMOL/L (21-32) Anion Gap 9 mmol/L (5-15) Blood Urea Nitrogen 41 mg/dL (7-18) H Creatinine 1.3 MG/DL (0.55-1.30) Estimat Glomerular Filtration Rate 39.8 mL/min (>60) Glucose Level 146 MG/DL (74-106) H Calcium Level 9.2 MG/DL (8.5-10.1) Phosphorus Level 3.0 MG/DL (2.5-4.9) Magnesium Level 2.0 MG/DL (1.8-2.4) Iron Level 26 ug/dL (50-175) L Total Iron Binding Capacity 127 ug/dL (250-450) L Percent Iron Saturation 20 % (15-50) Unsaturated Iron Binding 101 ug/dL (112-346) L Lactate Dehydrogenase 178 U/L (81-234) C-Reactive Protein, Quantitative 30.6 mg/dL (0.00-0.90) H Albumin 2.1 G/DL (3.4-5.0) L Carcinoembryonic Antigen Pending Vitamin B12 Level 1048 PG/ML (193-986) H Folate 4.5 NG/ML (8.6-58.9) L Random Vancomycin Level 9.4 ug/mL Microbiology Date/Time Source Procedure Growth Status 02/16/20 11:06 Nasopharynx SARS-CoV-2 RdRp Gene Assay - Final Complete Intake and Output 02/16/20 02/17/20 19:00 07:00 Intake Total 2100 ml Output Total 250 ml 400 ml Balance 1850 ml -400 ml Intake Oral 0 ml IV Total 2100 ml Output Urine Total 250 ml 400 ml Objective PHYSICAL EXAMINATION: GENERAL: The patient awake, responsive, and in no acute distress, however, looking chronically ill-appearing patient. HEAD AND NECK: Pupils are equal and reactive to light. Extraocular movements are intact. Neck was supple. No JVD. LUNGS: Good air entry. No wheezing or rales. Poor inspiratory effort. HEART: S1, S2. Regular rhythm. No murmur or gallops. ABDOMEN: Soft, nondistended, and nontender. Positive bowel sounds. EXTREMITIES: No cyanosis, clubbing or edema. NEUROLOGIC: Cranial nerves II through XII grossly intact. The patient is moving all the extremities spontaneously. RECTAL: Refused and deferred. GENITOURINARY: Refused and deferred. PSYCHIATRIC: Mood and affect is intact. Assessment/Plan Assessment/Plan ASSESSMENT: 1. Generalized weakness 2. Acute kidney injury with ATN. 3. Hypernatremia. 4. Dehydration and hypovolemia. 5. Anemia, most likely anemia of chronic disease. 6. Hypertension. 7. Dyslipidemia. 8. Diabetes type 2. 9. Acute metabolic encephalopathy, most likely secondary to infection as well as dehydration. 10. LLL pneumonia 11. Left pleural effusion PLAN: 1. Admit the patient to monitored unit. 2. antibiotics = vancomycin and cefepime 3. Code status is Full Code. 4. DVT prophylaxis heparin subcutaneous. 5. Dr. Quezada = Pulmonary/Critical Care Rhys Yousif MD Feb 17, 2020 12:09
--- NOTE | 2020-02-17 15:20 | Consultation ---
Consult Note Consult Note I am asked to evaluate the patient at the request of Dr. Mckeon. Patient has abnormal renal parameters and renal failure. 74-year-old female history of hypertension hyperlipidemia diabetes, history of alcohol use in the past presents with altered mental status, hypoxia presenting from long term, history is limited due to patient's altered mental status, patient is confused patient required supplemental O2 patient presents for evaluation and treatment Allergies: NO KNOWN DRUG ALLERGIES (Verified Allergy, Unknown, 06/09/17) COVID-19 Screening Contact w/high risk pt: Yes Experienced COVID-19 symptoms?: Yes COVID-19 Testing performed [employer]: Yes - 01/04/2020 (-) COVID-19 Screening: Negative COVID-19 COVID-19 Testing Source: Nasopharyngeal Hx Cardiac Problems: Yes Hx Hypertension: Yes Hx Diabetes: Yes Hx Gastrointestinal Problems: Yes Hx Neurological Problems: Yes Hx Memory Loss: Yes Hx Concentration Difficulty: Yes Hx Dizziness: Yes Hx Weakness: Yes Hx Fatigue: Yes PHYSICAL EXAMINATION: VITAL SIGNS: On admission, temperature 98.2, pulse of 85, respirations 22, blood pressure 124/65. GENERAL: The patient awake, responsive, and in no acute distress, however, looking chronically ill-appearing patient. HEAD AND NECK: Pupils are equal and reactive to light. Extraocular movements are intact. Neck was supple. No JVD. LUNGS: Good air entry. No wheezing or rales. Poor inspiratory effort. HEART: S1, S2. Regular rhythm. No murmur or gallops. ABDOMEN: Soft, nondistended, and nontender. Positive bowel sounds. EXTREMITIES: No cyanosis, clubbing or edema. NEUROLOGIC: Cranial nerves II through XII grossly intact. The patient is moving all the extremities spontaneously. RECTAL: Refused and deferred. GENITOURINARY: Refused and deferred. PSYCHIATRIC: Mood and affect is intact. LABORATORY AND DIAGNOSTIC DATA: Laboratory on admission, WBC of 11.7, hemoglobin 9.5, hematocrit 28, platelet is 315. Sodium 150, potassium 4.5, chloride 115, bicarb 27, BUN 48, creatinine 1.8. Lactic acid is 1.2, alkaline phosphate is 121. Troponin 0.0. Total CK is 20. ProBNP of 9663. Lipase is 60. PT of 11, INR 1.0, PTT of 29. UA has +2 protein, +1 leukocyte esterase, moderate squamous epithelial cells, few bacteria. Chest x-ray, left pleural effusion with a hazy generalized opacity , but cannot rule out any infiltrates. . Assessment/Plan Acute on chronic renal failure, dehydration Mild hypernatremia, free water deficit Anemia Hyperglycemia History of hypertension History of diabetes type 2, diabetic nephropathy Toxic metabolic encephalopathy Suggestion: Hydrate Monitor renal parameters and electrolytes Keep the blood pressure and blood sugar in check Avoid nephrotoxic's Folic acid supplement p.o. Humberto Knight MD Feb 17, 2020 15:20
[2020-02-17 16:00] VITALS: BP 126/51
[2020-02-17 20:00] VITALS: BP 129/54
[2020-02-18] VITALS: BP 121/60
[2020-02-18 04:00] VITALS: BP 138/63
[2020-02-18] MEDS: NovoLOG Insulin Flexpen SUBQ SCH ×4 (06:30→21:00)
[2020-02-18 08:00] VITALS: BP 137/65
[2020-02-18 08:42] LABS: HEMATOCRIT 26.4 % (37.0-47.0); HEMOGLOBIN 8.9 G/DL (12.0-16.0); MEAN CORPUSCULAR VOLUME 94 FL (80-99); PLATELET COUNT 305 K/UL (150-450); RED BLOOD COUNT 2.82 M/UL (4.20-5.40); RED CELL DISTRIBUTION WIDTH 11.5 % (11.6-14.8); WHITE BLOOD COUNT 9.8 K/UL (4.8-10.8)
[2020-02-18] MEDS: Heparin 5000 units/ml inj SUBQ SCH ×2 (09:23→21:21)
[2020-02-18] MEDS: Cefepime HCl 1 GM in D5W 55 ML IVPB SCH (09:24)
[2020-02-18 09:39] LABS: ALBUMIN/GLOBULIN RATIO 0.5 (1.0-2.7); BILIRUBIN,TOTAL 0.5 MG/DL (0.2-1.0); CALCIUM 8.9 MG/DL (8.5-10.1); CREATININE 1.1 MG/DL (0.55-1.30); POTASSIUM 3.8 MMOL/L (3.5-5.1)
[2020-02-18 09:51] LABS: PHOSPHORUS 2.9 MG/DL (2.5-4.9)
[2020-02-18] MEDS: Vancomycin 1gm/D5W 275ml IVPB SCH ×2 (11:22)
[2020-02-18 12:00] VITALS: BP 143/66
--- NOTE | 2020-02-18 12:32 | Nephrology Progress Note ---
Assessment/Plan Problem List: (1) ATN (acute tubular necrosis) (2) Diabetes mellitus (3) Hypertension, uncontrolled (4) Anemia (5) Dehydration (6) Electrolyte imbalance Assessment Acute on chronic renal failure, dehydration Mild hypernatremia, free water deficit Anemia Hyperglycemia History of hypertension History of diabetes type 2, diabetic nephropathy Toxic metabolic encephalopathy Plan Hydrate, slow, as needed Monitor renal parameters and electrolytes Keep the blood pressure and blood sugar in check Avoid nephrotoxic's Folic acid supplement p.o. Subjective ROS Limited/Unobtainable: No Constitutional: Reports: malaise Objective Objective Last 24 Hour Vital Signs Date Time Temp Pulse Resp B/P (MAP) Pulse Ox O2 Delivery O2 Flow Rate FiO2 02/18/20 09:00 Nasal Cannula 2.0 02/18/20 08:00 65 02/18/20 08:00 96.3 68 18 137/65 (89) 98 02/18/20 04:00 68 02/18/20 04:00 97.9 71 17 138/63 (88) 95 02/18/20 00:00 67 02/18/20 00:00 97.9 68 17 121/60 (80) 95 02/17/20 21:00 Nasal Cannula 2.0 02/17/20 20:00 98.4 71 17 129/54 (79) 94 02/17/20 20:00 78 02/17/20 16:00 97.7 78 18 126/51 (76) 99 02/17/20 16:00 65 Intake and Output 02/17/20 02/18/20 19:00 07:00 Output Total 200 ml 400 ml Balance -200 ml -400 ml Output Urine Total 200 ml 400 ml Laboratory Tests 02/17/20 21:39: POC Whole Blood Glucose 100 02/18/20 06:05: POC Whole Blood Glucose 105 02/18/20 08:15: White Blood Count 9.8, Red Blood Count 2.82L, Hemoglobin 8.9L, Hematocrit 26.4L, Mean Corpuscular Volume 94, Mean Corpuscular Hemoglobin 31.6H, Mean Corpuscular Hemoglobin Concent 33.8, Red Cell Distribution Width 11.5L, Platelet Count 305, Mean Platelet Volume 6.6, Neutrophils (%) (Auto) , Lymphocytes (%) (Auto) , Monocytes (%) (Auto) , Eosinophils (%) (Auto) , Basophils (%) (Auto) , Differential Total Cells Counted 100, Neutrophils % (Manual) 82H, Lymphocytes % (Manual) 12L, Monocytes % (Manual) 6, Eosinophils % (Manual) 0, Basophils % (Manual) 0, Band Neutrophils 0, Platelet Estimate Adequate, Platelet Morphology Normal, Hypochromasia 2+, Anisocytosis 1+, Sodium Level 138, Potassium Level 3.8, Chloride Level 105, Carbon Dioxide Level 24, Anion Gap 9, Blood Urea Nitrogen 25H, Creatinine 1.1, Estimat Glomerular Filtration Rate 48.3, Glucose Level 112H, Hemoglobin A1c 4.9, Uric Acid 4.5, Calcium Level 8.9, Phosphorus Level 2.9, Magnesium Level 1.8, Ferritin 640H, Total Bilirubin 0.5, Gamma Glutamyl Transpeptidase 10, Aspartate Amino Transf (AST/SGOT) 21, Alanine Aminotransferase (ALT/SGPT) 10L, Alkaline Phosphatase 115, C-Reactive Protein, Quantitative 17.7H, Pro-B-Type Natriuretic Peptide [id number], Total Protein 6.1L, Albumin 2.0L, Globulin 4.1, Albumin/Globulin Ratio 0.5L, Thyroid Stimulating Hormone (TSH) 1.562, Random Vancomycin Level 17.6 02/18/20 11:25: POC Whole Blood Glucose [Pending] Height (Feet): 5 Height (Inches): 6.00 Weight (Pounds): 103 General Appearance: no apparent distress Cardiovascular: normal rate Respiratory/Chest: decreased breath sounds Abdomen: soft Humberto Knight MD Feb 18, 2020 12:32
--- NOTE | 2020-02-18 12:57 | Internal Med Progress Note ---
Subjective Date of Service: Feb 18, 2020 Physician Name Rhys Yousif Attending Physician Ari Mckeon MD Current Medications Medications (Trade) Dose Ordered Sig/Kannan Route PRN Reason Start Time Stop Time Status Last Admin Dose Admin Acetaminophen (Tylenol) 650 mg Q4H PRN ORAL fever 02/16/20 12:15 03/17/20 12:14 Albuterol/ Ipratropium (Albuterol/ Ipratropium) 3 ml Q4H PRN HHN Shortness of Breath 02/16/20 12:15 02/21/20 12:14 Barium Sulfate (Varibar Honey) 250 ml NOW PRN MC RAD 02/16/20 12:30 02/19/20 12:28 Barium Sulfate (Varibar [place]) 240 ml NOW PRN MC RAD 02/16/20 12:30 02/19/20 12:28 Barium Sulfate (Varibar Pudding) 230 ml NOW PRN MC RAD 02/16/20 12:30 02/19/20 12:28 Barium Sulfate (Varibar Thin Liquid powder) 148 gm NOW PRN MC RAD 02/16/20 12:30 02/19/20 12:28 Cefepime HCl 1 gm/ Dextrose 55 ml @ 110 mls/hr Q24H IVPB 02/17/20 09:00 02/24/20 08:59 02/18/20 09:24 Dextrose (Dextrose 50%) 25 ml Q30M PRN IV Hypoglycemia 02/16/20 12:15 05/16/20 12:14 Dextrose (Dextrose 50%) 50 ml Q30M PRN IV Hypoglycemia 02/16/20 12:15 05/16/20 12:14 Folic Acid (Folate) 2 mg DAILY ORAL 02/17/20 15:45 03/18/20 15:44 02/18/20 09:23 Heparin Sodium (Porcine) (Heparin 5000 units/ml) 5,000 units EVERY 12 HOURS SUBQ 02/16/20 21:00 04/01/20 20:59 02/18/20 09:23 Insulin Aspart (NovoLOG) BEFORE MEALS AND HS SUBQ 02/16/20 16:30 05/16/20 16:29 Nitroglycerin (Ntg) 0.4 mg Q5M PRN SL Prn Chest Pain 02/16/20 12:15 03/17/20 12:14 Ondansetron HCl (Zofran) 4 mg Q6H PRN IVP Nausea & Vomiting 02/16/20 12:15 03/17/20 12:14 Polyethylene Glycol (Miralax) 17 gm DAILYPRN PRN ORAL Constipation 02/16/20 12:15 03/17/20 12:14 Promethazine HCl/ Codeine (Phenergan with Codeine) 5 ml Q4H PRN ORAL For Cough 02/16/20 12:15 03/17/20 12:14 Temazepam (Restoril) 15 mg HSPRN PRN ORAL Insomnia 02/16/20 12:15 02/23/20 12:14 Vancomycin HCl (Vanco pharmacy to dose) 1 ea DAILY PRN MISC Per rx protocol 02/16/20 12:15 03/17/20 12:14 Vancomycin HCl 1 gm/Dextrose 275 ml @ 183.708 mls/hr Q24H IVPB 02/18/20 11:00 02/23/20 10:59 02/18/20 11:22 Allergies: Coded Allergies: NO KNOWN DRUG ALLERGIES (Verified Allergy, Unknown, 06/09/17) ROS Limited/Unobtainable: Yes Subjective 74 YO F admitted with gen weakness. Now LLL pneumonia/pleural effusion. Cover for Int [facility]-Dr Mckeon Objective Last Vital Signs Date Time Temp Pulse Resp B/P (MAP) Pulse Ox O2 Delivery O2 Flow Rate FiO2 02/18/20 12:00 62 02/18/20 12:00 96.7 18 143/66 (91) 96 02/18/20 09:00 Nasal Cannula 2.0 Laboratory Tests Test 02/17/20 21:39 02/18/20 06:05 02/18/20 08:15 02/18/20 11:25 POC Whole Blood Glucose 100 MG/DL (74-106) 105 MG/DL (74-106) Pending White Blood Count 9.8 K/UL (4.8-10.8) Red Blood Count 2.82 M/UL (4.20-5.40) L Hemoglobin 8.9 G/DL (12.0-16.0) L Hematocrit 26.4 % (37.0-47.0) L Mean Corpuscular Volume 94 FL (80-99) Mean Corpuscular Hemoglobin 31.6 PG (27.0-31.0) H Mean Corpuscular Hemoglobin Concent 33.8 G/DL (32.0-36.0) Red Cell Distribution Width 11.5 % (11.6-14.8) L Platelet Count 305 K/UL (150-450) Mean Platelet Volume 6.6 FL (6.5-10.1) Neutrophils (%) (Auto) % (45.0-75.0) Lymphocytes (%) (Auto) % (20.0-45.0) Monocytes (%) (Auto) % (1.0-10.0) Eosinophils (%) (Auto) % (0.0-3.0) Basophils (%) (Auto) % (0.0-2.0) Differential Total Cells Counted 100 Neutrophils % (Manual) 82 % (45-75) H Lymphocytes % (Manual) 12 % (20-45) L Monocytes % (Manual) 6 % (1-10) Eosinophils % (Manual) 0 % (0-3) Basophils % (Manual) 0 % (0-2) Band Neutrophils 0 % (0-8) Platelet Estimate Adequate Platelet Morphology Normal Hypochromasia 2+ Anisocytosis 1+ Sodium Level 138 MMOL/L (136-145) Potassium Level 3.8 MMOL/L (3.5-5.1) Chloride Level 105 MMOL/L (98-107) Carbon Dioxide Level 24 MMOL/L (21-32) Anion Gap 9 mmol/L (5-15) Blood Urea Nitrogen 25 mg/dL (7-18) H Creatinine 1.1 MG/DL (0.55-1.30) Estimat Glomerular Filtration Rate 48.3 mL/min (>60) Glucose Level 112 MG/DL (74-106) H Hemoglobin A1c 4.9 % (4.3-6.0) Uric Acid 4.5 MG/DL (2.6-7.2) Calcium Level 8.9 MG/DL (8.5-10.1) Phosphorus Level 2.9 MG/DL (2.5-4.9) Magnesium Level 1.8 MG/DL (1.8-2.4) Ferritin 640 NG/ML (8-388) H Total Bilirubin 0.5 MG/DL (0.2-1.0) Gamma Glutamyl Transpeptidase 10 U/L (5-85) Aspartate Amino Transf (AST/SGOT) 21 U/L (15-37) Alanine Aminotransferase (ALT/SGPT) 10 U/L (12-78) L Alkaline Phosphatase 115 U/L (46-116) C-Reactive Protein, Quantitative 17.7 mg/dL (0.00-0.90) H Pro-B-Type Natriuretic Peptide 97029 pg/mL (0-125) H Total Protein 6.1 G/DL (6.4-8.2) L Albumin 2.0 G/DL (3.4-5.0) L Globulin 4.1 g/dL Albumin/Globulin Ratio 0.5 (1.0-2.7) L Thyroid Stimulating Hormone (TSH) 1.562 uiU/mL (0.358-3.740) Random Vancomycin Level 17.6 ug/mL Microbiology Date/Time Source Procedure Growth Status 02/16/20 11:06 Nasopharynx SARS-CoV-2 RdRp Gene Assay - Final Complete 02/16/20 11:06 Blood Blood Culture - Preliminary NO GROWTH AFTER 24 HOURS Resulted 02/16/20 11:06 Blood Blood Culture - Preliminary NO GROWTH AFTER 24 HOURS Resulted Intake and Output 02/17/20 02/18/20 18:59 06:59 Output Total 200 ml 400 ml Balance -200 ml -400 ml Output Urine Total 200 ml 400 ml Objective PHYSICAL EXAMINATION: GENERAL: The patient awake, responsive, and in no acute distress, however, looking chronically ill-appearing patient. HEAD AND NECK: Pupils are equal and reactive to light. Extraocular movements are intact. Neck was supple. No JVD. LUNGS: Good air entry. No wheezing or rales. Poor inspiratory effort. HEART: S1, S2. Regular rhythm. No murmur or gallops. ABDOMEN: Soft, nondistended, and nontender. Positive bowel sounds. EXTREMITIES: No cyanosis, clubbing or edema. NEUROLOGIC: Cranial nerves II through XII grossly intact. The patient is moving all the extremities spontaneously. RECTAL: Refused and deferred. GENITOURINARY: Refused and deferred. PSYCHIATRIC: Mood and affect is intact. Assessment/Plan Assessment/Plan ASSESSMENT: 1. Generalized weakness 2. Acute kidney injury with ATN. 3. Hypernatremia. 4. Dehydration and hypovolemia. 5. Anemia, most likely anemia of chronic disease. 6. Hypertension. 7. Dyslipidemia. 8. Diabetes type 2. 9. Acute metabolic encephalopathy, most likely secondary to infection as well as dehydration. 10. LLL pneumonia 11. Left pleural effusion PLAN: 1. Admit the patient to monitored unit. 2. antibiotics = vancomycin and cefepime 3. Code status is Full Code. 4. DVT prophylaxis heparin subcutaneous. 5. Dr. Quezada = Pulmonary/Critical Care Rhys Yousif MD Feb 18, 2020 12:57
[2020-02-18] MEDS ORDERED: FAMOTIDINE40 MG ORAL (14:11)
[2020-02-18] MEDS ORDERED: GABAPENTIN800 MG ORAL (14:17)
[2020-02-18] MEDS ORDERED: ONDANSETRON ODT4 MG SL (14:17)
[2020-02-18] MEDS ORDERED: FERROUS SULFAT325 MG ORAL (14:17)
[2020-02-18] MEDS ORDERED: MULTIVITAMINS1 EAC8 ORAL (14:27)
[2020-02-18] MEDS ORDERED: MORPHINE S100 MG/5 M SL (14:27)
[2020-02-18] MEDS ORDERED: IPRATROPIU0.2 MG/1 M HHN (14:27)
[2020-02-18] MEDS ORDERED: CRANBERRY500 M4 ORAL (14:27)
[2020-02-18] MEDS ORDERED: ACETAMINOPHEN120 MG RECTAL (14:27)
[2020-02-18] MEDS ORDERED: BISACODYL10 M1 RC (14:27)
[2020-02-18] MEDS ORDERED: ARTIFICIAL TEAR15 ML BOTH EYES (14:27)
--- NOTE | 2020-02-18 14:55 | Cardiology Report ---
APPROVED REPORT EKG Measurement Heart [id number] <Conclusion> Sinus tachycardia with premature supraventricular complexes Low voltage QRS Borderline ECG
[2020-02-18 16:00] VITALS: BP 140/69
[2020-02-18 20:00] VITALS: BP 140/64
[2020-02-19] VITALS (8 sets, daily range): BP systolic 137–184; BP diastolic 50–89
[2020-02-19] MEDS: NovoLOG Insulin Flexpen SUBQ SCH ×4 (06:11→21:00)
[2020-02-19 07:15] LABS: HEMATOCRIT 29.5 % (37.0-47.0); HEMOGLOBIN 10.3 G/DL (12.0-16.0); MEAN CORPUSCULAR VOLUME 92 FL (80-99); PLATELET COUNT 370 K/UL (150-450); RED BLOOD COUNT 3.21 M/UL (4.20-5.40); RED CELL DISTRIBUTION WIDTH 11.5 % (11.6-14.8); WHITE BLOOD COUNT 12.1 K/UL (4.8-10.8)
[2020-02-19 07:30] LABS: CALCIUM 8.8 MG/DL (8.5-10.1); CREATININE 1.1 MG/DL (0.55-1.30); POTASSIUM 3.8 MMOL/L (3.5-5.1)
[2020-02-19 07:46] LABS: ALANINE AMINOTRANSFERASE 13 U/L (12-78); ALBUMIN 2.1 G/DL (3.4-5.0); ALKALINE PHOSPHATASE 113 U/L (46-116); ASPARTATE AMINO TRANSFERASE 14 U/L (15-37); BILIRUBIN,DIRECT 0.2 MG/DL (0.0-0.3); BILIRUBIN,TOTAL 0.5 MG/DL (0.2-1.0); PHOSPHORUS 3.9 MG/DL (2.5-4.9)
[2020-02-19] MEDS: Cefepime HCl 1 GM in D5W 55 ML IVPB SCH (09:16)
[2020-02-19] MEDS: Heparin 5000 units/ml inj SUBQ SCH ×2 (09:18→21:33)
--- NOTE | 2020-02-19 10:21 | Infectious Diseases Prog Note ---
Assessment/Plan 74yo F with: Febrile to 100.4 Leukocytosis to 11 AMS AMOS, Cr 1.8 02/15 BCx p UA 2-4 WBC COVID screen neg MRSA nares p Resp cx p CXR: Left pleural effusion. Hazy generalized opacity probably related to such but could also indicate infiltrate Dementia SNF resident Plan: Cont cefepime & vanco IV #3/5-7 F/u BCx, resp cx Trend WBC Trend resp status Monitor CBC/CMP Monitor resp status Monitor temp curve and hemodynamics Thank you for this consult. [facility] will continue to follow. Subjective Allergies: Coded Allergies: NO KNOWN DRUG ALLERGIES (Verified Allergy, Unknown, 06/09/17) Afebrile Mild Leukocytosis Cultures negative Objective Last 24 Hour Vital Signs Date Time Temp Pulse Resp B/P (MAP) Pulse Ox O2 Delivery O2 Flow Rate FiO2 02/19/20 04:00 76 02/19/20 04:00 98.6 70 19 150/79 (102) 95 02/19/20 00:00 98.2 66 17 147/65 (92) 98 02/19/20 00:00 63 02/18/20 21:00 Nasal Cannula 2.0 02/18/20 20:00 97.9 64 17 140/64 (89) 98 02/18/20 20:00 57 02/18/20 16:00 96.9 68 18 140/69 (92) 98 02/18/20 16:00 66 02/18/20 12:00 62 02/18/20 12:00 96.7 68 18 143/66 (91) 96 Height (Feet): 5 Height (Inches): 6.00 Weight (Pounds): 103 Gen: NAD in bed HEENT: NCAT, EOMI Pulm: BL chest rise Abd: Soft, ND Microbiology Date/Time Source Procedure Growth Status 02/16/20 11:06 Nasopharynx SARS-CoV-2 RdRp Gene Assay - Final Complete 02/16/20 11:06 Blood Blood Culture - Preliminary NO GROWTH AFTER 48 HOURS Resulted 02/16/20 11:06 Blood Blood Culture - Preliminary NO GROWTH AFTER 48 HOURS Resulted Laboratory Tests Test 02/18/20 11:25 02/18/20 17:37 02/18/20 20:37 02/19/20 05:40 POC Whole Blood Glucose Pending 125 MG/DL (74-106) H 142 MG/DL (74-106) H White Blood Count 12.1 K/UL (4.8-10.8) H Red Blood Count 3.21 M/UL (4.20-5.40) L Hemoglobin 10.3 G/DL (12.0-16.0) L Hematocrit 29.5 % (37.0-47.0) L Mean Corpuscular Volume 92 FL (80-99) Mean Corpuscular Hemoglobin 32.0 PG (27.0-31.0) H Mean Corpuscular Hemoglobin Concent 34.8 G/DL (32.0-36.0) Red Cell Distribution Width 11.5 % (11.6-14.8) L Platelet Count 370 K/UL (150-450) Mean Platelet Volume 6.2 FL (6.5-10.1) L Neutrophils (%) (Auto) % (45.0-75.0) Lymphocytes (%) (Auto) % (20.0-45.0) Monocytes (%) (Auto) % (1.0-10.0) Eosinophils (%) (Auto) % (0.0-3.0) Basophils (%) (Auto) % (0.0-2.0) Differential Total Cells Counted 100 Neutrophils % (Manual) 84 % (45-75) H Lymphocytes % (Manual) 13 % (20-45) L Monocytes % (Manual) 3 % (1-10) Eosinophils % (Manual) 0 % (0-3) Basophils % (Manual) 0 % (0-2) Band Neutrophils 0 % (0-8) Platelet Estimate Adequate Platelet Morphology Normal Red Blood Cell Morphology Normal Sodium Level 138 MMOL/L (136-145) Potassium Level 3.8 MMOL/L (3.5-5.1) Chloride Level 103 MMOL/L (98-107) Carbon Dioxide Level 24 MMOL/L (21-32) Anion Gap 11 mmol/L (5-15) Blood Urea Nitrogen 23 mg/dL (7-18) H Creatinine 1.1 MG/DL (0.55-1.30) Estimat Glomerular Filtration Rate 48.3 mL/min (>60) Glucose Level 111 MG/DL (74-106) H Uric Acid 4.2 MG/DL (2.6-7.2) Calcium Level 8.8 MG/DL (8.5-10.1) Phosphorus Level 3.9 MG/DL (2.5-4.9) Magnesium Level 1.9 MG/DL (1.8-2.4) Total Bilirubin 0.5 MG/DL (0.2-1.0) Direct Bilirubin 0.2 MG/DL (0.0-0.3) Aspartate Amino Transf (AST/SGOT) 14 U/L (15-37) L Alanine Aminotransferase (ALT/SGPT) 13 U/L (12-78) Alkaline Phosphatase 113 U/L (46-116) Total Protein 6.0 G/DL (6.4-8.2) L Albumin 2.1 G/DL (3.4-5.0) L Test 02/19/20 05:56 POC Whole Blood Glucose 115 MG/DL (74-106) H Current Medications Medications (Trade) Dose Ordered Sig/Kannan Route PRN Reason Start Time Stop Time Status Last Admin Dose Admin Acetaminophen (Tylenol) 650 mg Q4H PRN ORAL fever 02/16/20 12:15 03/17/20 12:14 Albuterol/ Ipratropium (Albuterol/ Ipratropium) 3 ml Q4H PRN HHN Shortness of Breath 02/16/20 12:15 02/21/20 12:14 Barium Sulfate (Varibar [place]) 250 ml NOW PRN MC RAD 02/16/20 12:30 02/19/20 12:28 Barium Sulfate (Varibar [place]) 240 ml NOW PRN MC RAD 02/16/20 12:30 02/19/20 12:28 Barium Sulfate (Varibar Pudding) 230 ml NOW PRN MC RAD 02/16/20 12:30 02/19/20 12:28 Barium Sulfate (Varibar Thin Liquid powder) 148 gm NOW PRN MC RAD 02/16/20 12:30 02/19/20 12:28 Cefepime HCl 1 gm/ Dextrose 55 ml @ 110 mls/hr Q24H IVPB 02/17/20 09:00 02/24/20 08:59 02/19/20 09:16 Dextrose (Dextrose 50%) 25 ml Q30M PRN IV Hypoglycemia 02/16/20 12:15 05/16/20 12:14 Dextrose (Dextrose 50%) 50 ml Q30M PRN IV Hypoglycemia 02/16/20 12:15 05/16/20 12:14 Folic Acid (Folate) 2 mg DAILY ORAL 02/17/20 15:45 03/18/20 15:44 02/19/20 09:16 Heparin Sodium (Porcine) (Heparin 5000 units/ml) 5,000 units EVERY 12 HOURS SUBQ 02/16/20 21:00 04/01/20 20:59 02/19/20 09:18 Insulin Aspart (NovoLOG) BEFORE MEALS AND HS SUBQ 02/16/20 16:30 05/16/20 16:29 Nitroglycerin (Ntg) 0.4 mg Q5M PRN SL Prn Chest Pain 02/16/20 12:15 03/17/20 12:14 Ondansetron HCl (Zofran) 4 mg Q6H PRN IVP Nausea & Vomiting 02/16/20 12:15 03/17/20 12:14 Polyethylene Glycol (Miralax) 17 gm DAILYPRN PRN ORAL Constipation 02/16/20 12:15 03/17/20 12:14 Promethazine HCl/ Codeine (Phenergan with Codeine) 5 ml Q4H PRN ORAL For Cough 02/16/20 12:15 03/17/20 12:14 Temazepam (Restoril) 15 mg HSPRN PRN ORAL Insomnia 02/16/20 12:15 02/23/20 12:14 Vancomycin HCl (Vanco pharmacy to dose) 1 ea DAILY PRN MISC Per rx protocol 02/16/20 12:15 03/17/20 12:14 Vancomycin HCl 1 gm/Dextrose 275 ml @ 183.708 mls/hr Q24H IVPB 02/18/20 11:00 02/23/20 10:59 02/18/20 11:22 Ethan Bell MD Feb 19, 2020 10:21
--- NOTE | 2020-02-19 11:39 | Pulmonology Progress Note ---
Subjective ROS Limited/Unobtainable: Yes Allergies: Coded Allergies: NO KNOWN DRUG ALLERGIES (Verified Allergy, Unknown, 06/09/17) Objective Last 24 Hour Vital Signs Date Time Temp Pulse Resp B/P (MAP) Pulse Ox O2 Delivery O2 Flow Rate FiO2 02/19/20 09:00 Nasal Cannula 2.0 02/19/20 08:00 96.8 71 18 171/89 (116) 95 02/19/20 07:30 73 02/19/20 04:00 76 02/19/20 04:00 98.6 70 19 150/79 (102) 95 02/19/20 00:00 98.2 66 17 147/65 (92) 98 02/19/20 00:00 63 02/18/20 21:00 Nasal Cannula 2.0 02/18/20 20:00 97.9 64 17 140/64 (89) 98 02/18/20 20:00 57 02/18/20 16:00 96.9 68 18 140/69 (92) 98 02/18/20 16:00 66 02/18/20 12:00 62 02/18/20 12:00 96.7 68 18 143/66 (91) 96 Intake and Output 02/18/20 02/19/20 19:00 07:00 Output Total 550 ml Balance -550 ml Output Urine Total 550 ml General Appearance: WD/WN HEENT: normocephalic, atraumatic Respiratory: chest wall non-tender, lungs clear Breasts: no masses Cardiovascular: normal peripheral pulses, normal rate, no JVD Abdomen: normal bowel sounds, soft, non tender Genitourinary: normal external genitalia Extremities: no cyanosis Skin: no rash, no lesions 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 Laboratory Tests 02/18/20 17:37: POC Whole Blood Glucose 125H 02/18/20 20:37: POC Whole Blood Glucose 142H 02/19/20 05:40: White Blood Count 12.1H, Red Blood Count 3.21L, Hemoglobin 10.3L, Hematocrit 29.5L, Mean Corpuscular Volume 92, Mean Corpuscular Hemoglobin 32.0H, Mean Corpuscular Hemoglobin Concent 34.8, Red Cell Distribution Width 11.5L, Platelet Count 370, Mean Platelet Volume 6.2L, Neutrophils (%) (Auto) , Lymphocytes (%) (Auto) , Monocytes (%) (Auto) , Eosinophils (%) (Auto) , Basophils (%) (Auto) , Differential Total Cells Counted 100, Neutrophils % (Manual) 84H, Lymphocytes % (Manual) 13L, Monocytes % (Manual) 3, Eosinophils % (Manual) 0, Basophils % (Manual) 0, Band Neutrophils 0, Platelet Estimate Adequate, Platelet Morphology Normal, Red Blood Cell Morphology Normal, Sodium Level 138, Potassium Level 3.8, Chloride Level 103, Carbon Dioxide Level 24, Anion Gap 11, Blood Urea Nitrogen 23H, Creatinine 1.1, Estimat Glomerular Filtration Rate 48.3, Glucose Level 111H , Uric Acid 4.2, Calcium Level 8.8, Phosphorus Level 3.9, Magnesium Level 1.9, Total Bilirubin 0.5, Direct Bilirubin 0.2, Aspartate Amino Transf (AST/SGOT) 14L , Alanine Aminotransferase (ALT/SGPT) 13, Alkaline Phosphatase 113, Total Protein 6.0L, Albumin 2.1L 02/19/20 05:56: POC Whole Blood Glucose 115H Current Medications Medications (Trade) Dose Ordered Sig/Kannan Route PRN Reason Start Time Stop Time Status Last Admin Dose Admin Acetaminophen (Tylenol) 650 mg Q4H PRN ORAL fever 02/16/20 12:15 03/17/20 12:14 Albuterol/ Ipratropium (Albuterol/ Ipratropium) 3 ml Q4H PRN HHN Shortness of Breath 02/16/20 12:15 02/21/20 12:14 Barium Sulfate (Varibar Honey) 250 ml NOW PRN MC RAD 02/16/20 12:30 02/19/20 12:28 Barium Sulfate (Varibar [place]) 240 ml NOW PRN MC RAD 02/16/20 12:30 02/19/20 12:28 Barium Sulfate (Varibar [place]ud[place]) 230 ml NOW PRN MC RAD 02/16/20 12:30 02/19/20 12:28 Barium Sulfate (Varibar Thin Liquid powder) 148 gm NOW PRN MC RAD 02/16/20 12:30 02/19/20 12:28 Cefepime HCl 1 gm/ Dextrose 55 ml @ 110 mls/hr Q24H IVPB 02/17/20 09:00 02/24/20 08:59 02/19/20 09:16 Clonidine HCl (Catapres Tab) 0.1 mg Q6H PRN ORAL For SBP >160 02/19/20 10:45 05/19/20 10:44 Dextrose (Dextrose 50%) 25 ml Q30M PRN IV Hypoglycemia 02/16/20 12:15 05/16/20 12:14 Dextrose (Dextrose 50%) 50 ml Q30M PRN IV Hypoglycemia 02/16/20 12:15 05/16/20 12:14 Folic Acid (Folate) 2 mg DAILY ORAL 02/17/20 15:45 03/18/20 15:44 02/18/20 09:23 Heparin Sodium (Porcine) (Heparin 5000 units/ml) 5,000 units EVERY 12 HOURS SUBQ 02/16/20 21:00 04/01/20 20:59 02/19/20 09:18 Insulin Aspart (NovoLOG) BEFORE MEALS AND HS SUBQ 02/16/20 16:30 05/16/20 16:29 Nitroglycerin (Ntg) 0.4 mg Q5M PRN SL Prn Chest Pain 02/16/20 12:15 03/17/20 12:14 Ondansetron HCl (Zofran) 4 mg Q6H PRN IVP Nausea & Vomiting 02/16/20 12:15 03/17/20 12:14 Polyethylene Glycol (Miralax) 17 gm DAILYPRN PRN ORAL Constipation 02/16/20 12:15 03/17/20 12:14 Promethazine HCl/ Codeine (Phenergan with Codeine) 5 ml Q4H PRN ORAL For Cough 02/16/20 12:15 03/17/20 12:14 Temazepam (Restoril) 15 mg HSPRN PRN ORAL Insomnia 02/16/20 12:15 02/23/20 12:14 Vancomycin HCl (Vanco pharmacy to dose) 1 ea DAILY PRN MISC Per rx protocol 02/16/20 12:15 03/17/20 12:14 Vancomycin HCl 1 gm/Dextrose 275 ml @ 183.708 mls/hr Q24H IVPB 02/18/20 11:00 02/23/20 10:59 02/18/20 11:22 Assessment/Plan Problems: (1) Sepsis (2) Acute metabolic encephalopathy (3) ATN (acute tubular necrosis) (4) Generalized weakness (5) Pneumonia (6) Diabetes mellitus Assessment/Plan has episodes of projectile vomiting zofran prn Labetotol iv for BPpan culture iv abx iv fluids to correct the hypernatremia slidng scale swallow study when better Oscar Quezada MD Feb 19, 2020 11:39
[2020-02-19] MEDS ORDERED: Omnipaque-300 100ml vial INJ PRN (11:45)
[2020-02-19] MEDS: Vancomycin 1gm/D5W 275ml IVPB SCH ×2 (11:46)
--- NOTE | 2020-02-19 12:47 | Nephrology Progress Note ---
Assessment/Plan Problem List: (1) ATN (acute tubular necrosis) (2) Diabetes mellitus (3) Hypertension, uncontrolled (4) Anemia (5) Dehydration (6) Electrolyte imbalance Assessment Acute on chronic renal failure, dehydration Mild hypernatremia, free water deficit Anemia Hyperglycemia History of hypertension History of diabetes type 2, diabetic nephropathy Toxic metabolic encephalopathy Plan February 18: Blood pressure somewhat elevated, Norvasc for high blood pressure given. Labs reviewed. Renal parameters stable. Continue per consultants. Previously: Hydrate, slow, as needed Monitor renal parameters and electrolytes Keep the blood pressure and blood sugar in check Avoid nephrotoxic's Folic acid supplement p.o. Subjective ROS Limited/Unobtainable: No Constitutional: Reports: malaise Objective Objective Last 24 Hour Vital Signs Date Time Temp Pulse Resp B/P (MAP) Pulse Ox O2 Delivery O2 Flow Rate FiO2 02/19/20 12:39 63 163/77 (105) 02/19/20 12:00 97.7 77 20 184/84 (117) 96 02/19/20 09:00 Nasal Cannula 2.0 02/19/20 08:00 96.8 71 18 171/89 (116) 95 02/19/20 07:30 73 02/19/20 04:00 76 02/19/20 04:00 98.6 70 19 150/79 (102) 95 02/19/20 00:00 98.2 66 17 147/65 (92) 98 02/19/20 00:00 63 02/18/20 21:00 Nasal Cannula 2.0 02/18/20 20:00 97.9 64 17 140/64 (89) 98 02/18/20 20:00 57 02/18/20 16:00 96.9 68 18 140/69 (92) 98 02/18/20 16:00 66 Intake and Output 02/18/20 02/19/20 19:00 07:00 Output Total 550 ml Balance -550 ml Output Urine Total 550 ml Laboratory Tests 02/18/20 17:37: POC Whole Blood Glucose 125H 02/18/20 20:37: POC Whole Blood Glucose 142H 02/19/20 05:40: White Blood Count 12.1H, Red Blood Count 3.21L, Hemoglobin 10.3L, Hematocrit 29.5L, Mean Corpuscular Volume 92, Mean Corpuscular Hemoglobin 32.0H, Mean Corpuscular Hemoglobin Concent 34.8, Red Cell Distribution Width 11.5L, Platelet Count 370, Mean Platelet Volume 6.2L, Neutrophils (%) (Auto) , Lymphocytes (%) (Auto) , Monocytes (%) (Auto) , Eosinophils (%) (Auto) , Basophils (%) (Auto) , Differential Total Cells Counted 100, Neutrophils % (Manual) 84H, Lymphocytes % (Manual) 13L, Monocytes % (Manual) 3, Eosinophils % (Manual) 0, Basophils % (Manual) 0, Band Neutrophils 0, Platelet Estimate Adequate, Platelet Morphology Normal, Red Blood Cell Morphology Normal, Sodium Level 138, Potassium Level 3.8, Chloride Level 103, Carbon Dioxide Level 24, Anion Gap 11, Blood Urea Nitrogen 23H, Creatinine 1.1, Estimat Glomerular Filtration Rate 48.3, Glucose Level 111H , Uric Acid 4.2, Calcium Level 8.8, Phosphorus Level 3.9, Magnesium Level 1.9, Total Bilirubin 0.5, Direct Bilirubin 0.2, Aspartate Amino Transf (AST/SGOT) 14L , Alanine Aminotransferase (ALT/SGPT) 13, Alkaline Phosphatase 113, Total Protein 6.0L, Albumin 2.1L 02/19/20 05:56: POC Whole Blood Glucose 115H 02/19/20 11:48: POC Whole Blood Glucose 149H Height (Feet): 5 Height (Inches): 6.00 Weight (Pounds): 103 General Appearance: no apparent distress Cardiovascular: normal rate Respiratory/Chest: decreased breath sounds Abdomen: soft Objective No change Humberto Knight MD Feb 19, 2020 12:47
[2020-02-19] MEDS ORDERED: Labetalol 5mg/ml 20ml vial IV PRN (13:00)
[2020-02-19] MEDS ORDERED: Enalaprilat 2.5mg/2ml Inj IV PRN (15:00)
--- NOTE | 2020-02-19 18:59 | Internal Med Progress Note ---
Subjective Date of Service: Feb 19, 2020 Physician Name NicaRhys Attending Physician Ari Mckeon MD Current Medications Medications (Trade) Dose Ordered Sig/Kannan Route PRN Reason Start Time Stop Time Status Last Admin Dose Admin Acetaminophen (Tylenol) 650 mg Q4H PRN ORAL fever 02/16/20 12:15 03/17/20 12:14 Albuterol/ Ipratropium (Albuterol/ Ipratropium) 3 ml Q4H PRN HHN Shortness of Breath 02/16/20 12:15 02/21/20 12:14 Amlodipine Besylate (Norvasc) 10 mg DAILY ORAL 02/19/20 13:00 03/20/20 12:59 02/19/20 13:36 Barium Sulfate (Readi-Cat 2) 450 ml NOW PRN ORAL Radiology Procedure 02/19/20 11:45 02/21/20 11:44 Cefepime HCl 1 gm/ Dextrose 55 ml @ 110 mls/hr Q24H IVPB 02/17/20 09:00 02/24/20 08:59 02/19/20 09:16 Clonidine HCl (Catapres Tab) 0.1 mg Q6H PRN ORAL For SBP >160 02/19/20 10:45 05/19/20 10:44 02/19/20 12:53 Dextrose (Dextrose 50%) 25 ml Q30M PRN IV Hypoglycemia 02/16/20 12:15 05/16/20 12:14 Dextrose (Dextrose 50%) 50 ml Q30M PRN IV Hypoglycemia 02/16/20 12:15 05/16/20 12:14 Enalaprilat (Vasotec) 2.5 mg Q6H PRN IV SBP>160 02/19/20 15:00 03/20/20 14:59 Folic Acid (Folate) 2 mg DAILY ORAL 02/17/20 15:45 03/18/20 15:44 02/18/20 09:23 Heparin Sodium (Porcine) (Heparin 5000 units/ml) 5,000 units EVERY 12 HOURS SUBQ 02/16/20 21:00 04/01/20 20:59 02/19/20 09:18 Insulin Aspart (NovoLOG) BEFORE MEALS AND HS SUBQ 02/16/20 16:30 05/16/20 16:29 Iohexol (OMNIPAQUE-300 100ml) 100 ml NOW PRN INJ Radiology Procedure 02/19/20 11:45 02/21/20 11:44 Nitroglycerin (Ntg) 0.4 mg Q5M PRN SL Prn Chest Pain 02/16/20 12:15 03/17/20 12:14 Ondansetron HCl (Zofran) 4 mg Q6H PRN IVP Nausea & Vomiting 02/16/20 12:15 03/17/20 12:14 02/19/20 11:46 Polyethylene Glycol (Miralax) 17 gm DAILYPRN PRN ORAL Constipation 02/16/20 12:15 03/17/20 12:14 Promethazine HCl/ Codeine (Phenergan with Codeine) 5 ml Q4H PRN ORAL For Cough 02/16/20 12:15 03/17/20 12:14 Temazepam (Restoril) 15 mg HSPRN PRN ORAL Insomnia 02/16/20 12:15 02/23/20 12:14 Vancomycin HCl (Vanco pharmacy to dose) 1 ea DAILY PRN MISC Per rx protocol 02/16/20 12:15 03/17/20 12:14 Vancomycin HCl 1 gm/Dextrose 275 ml @ 183.708 mls/hr Q24H IVPB 02/18/20 11:00 02/23/20 10:59 02/19/20 11:46 Allergies: Coded Allergies: NO KNOWN DRUG ALLERGIES (Verified Allergy, Unknown, 06/09/17) ROS Limited/Unobtainable: Yes Subjective 74 YO F admitted with gen weakness. Now LLL pneumonia/pleural effusion. Cover for Int [facility]-Dr Mckeon Objective Last Vital Signs Date Time Temp Pulse Resp B/P (MAP) Pulse Ox O2 Delivery O2 Flow Rate FiO2 02/19/20 16:00 97.5 65 18 143/53 (83) 95 02/19/20 09:00 Nasal Cannula 2.0 Laboratory Tests Test 02/18/20 20:37 02/19/20 05:40 02/19/20 05:56 02/19/20 11:48 POC Whole Blood Glucose 142 MG/DL (74-106) H 115 MG/DL (74-106) H 149 MG/DL (74-106) H White Blood Count 12.1 K/UL (4.8-10.8) H Red Blood Count 3.21 M/UL (4.20-5.40) L Hemoglobin 10.3 G/DL (12.0-16.0) L Hematocrit 29.5 % (37.0-47.0) L Mean Corpuscular Volume 92 FL (80-99) Mean Corpuscular Hemoglobin 32.0 PG (27.0-31.0) H Mean Corpuscular Hemoglobin Concent 34.8 G/DL (32.0-36.0) Red Cell Distribution Width 11.5 % (11.6-14.8) L Platelet Count 370 K/UL (150-450) Mean Platelet Volume 6.2 FL (6.5-10.1) L Neutrophils (%) (Auto) % (45.0-75.0) Lymphocytes (%) (Auto) % (20.0-45.0) Monocytes (%) (Auto) % (1.0-10.0) Eosinophils (%) (Auto) % (0.0-3.0) Basophils (%) (Auto) % (0.0-2.0) Differential Total Cells Counted 100 Neutrophils % (Manual) 84 % (45-75) H Lymphocytes % (Manual) 13 % (20-45) L Monocytes % (Manual) 3 % (1-10) Eosinophils % (Manual) 0 % (0-3) Basophils % (Manual) 0 % (0-2) Band Neutrophils 0 % (0-8) Platelet Estimate Adequate Platelet Morphology Normal Red Blood Cell Morphology Normal Sodium Level 138 MMOL/L (136-145) Potassium Level 3.8 MMOL/L (3.5-5.1) Chloride Level 103 MMOL/L (98-107) Carbon Dioxide Level 24 MMOL/L (21-32) Anion Gap 11 mmol/L (5-15) Blood Urea Nitrogen 23 mg/dL (7-18) H Creatinine 1.1 MG/DL (0.55-1.30) Estimat Glomerular Filtration Rate 48.3 mL/min (>60) Glucose Level 111 MG/DL (74-106) H Uric Acid 4.2 MG/DL (2.6-7.2) Calcium Level 8.8 MG/DL (8.5-10.1) Phosphorus Level 3.9 MG/DL (2.5-4.9) Magnesium Level 1.9 MG/DL (1.8-2.4) Total Bilirubin 0.5 MG/DL (0.2-1.0) Direct Bilirubin 0.2 MG/DL (0.0-0.3) Aspartate Amino Transf (AST/SGOT) 14 U/L (15-37) L Alanine Aminotransferase (ALT/SGPT) 13 U/L (12-78) Alkaline Phosphatase 113 U/L (46-116) Total Protein 6.0 G/DL (6.4-8.2) L Albumin 2.1 G/DL (3.4-5.0) L Test 02/19/20 16:29 POC Whole Blood Glucose 145 MG/DL (74-106) H Intake and Output 02/18/20 02/19/20 19:00 07:00 Output Total 550 ml Balance -550 ml Output Urine Total 550 ml Objective PHYSICAL EXAMINATION: GENERAL: The patient awake, responsive, and in no acute distress, however, looking chronically ill-appearing patient. HEAD AND NECK: Pupils are equal and reactive to light. Extraocular movements are intact. Neck was supple. No JVD. LUNGS: Good air entry. No wheezing or rales. Poor inspiratory effort. HEART: S1, S2. Regular rhythm. No murmur or gallops. ABDOMEN: Soft, nondistended, and nontender. Positive bowel sounds. EXTREMITIES: No cyanosis, clubbing or edema. NEUROLOGIC: Cranial nerves II through XII grossly intact. The patient is moving all the extremities spontaneously. RECTAL: Refused and deferred. GENITOURINARY: Refused and deferred. PSYCHIATRIC: Mood and affect is intact. Assessment/Plan Assessment/Plan ASSESSMENT: 1. Generalized weakness 2. Acute kidney injury with ATN. 3. Hypernatremia. 4. Dehydration and hypovolemia. 5. Anemia, most likely anemia of chronic disease. 6. Hypertension. 7. Dyslipidemia. 8. Diabetes type 2. 9. Acute metabolic encephalopathy, most likely secondary to infection as well as dehydration. 10. LLL pneumonia 11. Left pleural effusion PLAN: 1. Admit the patient to monitored unit. 2. antibiotics = vancomycin and cefepime 3. Code status is Full Code. 4. DVT prophylaxis heparin subcutaneous. 5. Dr. Quezada = Pulmonary/Critical Care Rhys Yousif MD Feb 19, 2020 18:59
--- NOTE | 2020-02-19 21:31 | CDS Physician Query ---
Clarification is required for compliance, coding accuracy, and to reflect severity of illness for this patient Dear Dr. Ari Mckeon M.D. Date 02/19/2020 CDI/CDS; Clifton Jackson Exercise your independent professional judgment when responding to query. Questions asked do not imply particular answer is desired or expected. We greatly appreciate your clarification on this issue. Clinical Documentation States: 74-year-old female with past medical history significant for diabetes type 2, hypertension, dyslipidemia, history of alcohol abuse residing at the [facility], who presented to the emergency department due to the increased weakness. [H&P Ari Mckeon M.D. Feb 17, 2020 ] ASSESSMENT: Generalized weakness, most likely secondary to dehydration and pneumonia. Acute kidney injury with ATN, Hypernatremia, Dehydration and hypovolemia. Anemia, most likely anemia of chronic disease, Hypertension, Dyslipidemia. Diabetes type 2, Acute metabolic encephalopathy, most likely secondary to infection as well as dehydration. Clinical Finding Show: Vitals (02/15): T100.4F, Pulse 85, RR 22. LAB (02/15) : Hemat; WBC 11.7, Neut% 82.4 Chem: Sodium 150, Gluc 173. Urines(02/15): Ur.Bacteria "Few", Ur. Leuk Xiao 1+ Medication: Vancomycin IV, Azithromycin 500 IV, Cefepime IV According to the clinical indications above, please indicate below the condition PHYSICIAN RESPONSE: [ ] Sepsis [X] SIRS [ ] SIRS with organ dysfunction [ ] Septic Shock [ ] Not applicable [ ] Other: Present on Admission: [ ] Yes [ ] No [ ] Clinically Undetermined Physician signature Date Please also document in your Progress Notes and/or Discharge Summary and indicate if the condition was present on admission. KAILASHD
--- NOTE | 2020-02-19 21:41 | CDS Physician Query ---
Clarification is required for compliance, coding accuracy, and to reflect severity of illness for this patient Dear Dr. Ari Mckeon M.D. Date 02/19/2020 CDI/CDS; Clifton Jackson Exercise your independent professional judgment when responding to query. Questions asked do not imply particular answer is desired or expected. We greatly appreciate your clarification on this issue. Clinical Documentation States: 74 YO F admitted with gen weakness. Now LLL pneumonia/pleural effusion. ASSESSMENT: Generalized weakness, most likely secondary to dehydration and pneumonia. Acute kidney injury with ATN, Hypernatremia, Dehydration and hypovolemia. Anemia, most likely anemia of chronic disease, Hypertension, Dyslipidemia. Diabetes type 2, Acute metabolic encephalopathy, most likely secondary to infection as well as dehydration. NUTRITION DIAGNOSIS: Increased kcal/prot needs R/T suspected progressive wt loss and wound healing as evidenced by suspected wt loss of 45lbs/ 1.5 year, w/ sacral and BL heels wounds. [Nutrition Notes: Clari Guillen, RD Date: 02/19/20 12:31] Clinical Finding Show: BMI: 17.0kg/m2 LAB (01/15) : Chem: Albumin 2.1 [3.4-5.0] Medication: Dextrose 100ml IV Please select the most appropriate option: [X] Protein/Calorie Malnutrition [] Mild [] Moderate [X] Severe [] Other [] Unable to determine [] Not Applicable Present on Admission: [X] Yes [] No [] Clinically Undetermined Physician signature Date Please also document in your Progress Notes and/or Discharge Summary and indicate if the condition was present on admission. MTDD
[2020-02-20] VITALS: BP 130/87
[2020-02-20 04:00] VITALS: BP 148/89
[2020-02-20] MEDS: NovoLOG Insulin Flexpen SUBQ SCH ×4 (06:30→21:00)
[2020-02-20 06:42] LABS: BASOPHILS % (AUTO) 0.4 % (0.0-2.0); EOSINOPHILS % (AUTO) 0.2 % (0.0-3.0); HEMATOCRIT 24.3 % (37.0-47.0); HEMOGLOBIN 8.4 G/DL (12.0-16.0); LYMPHOCYTES % (AUTO) 8.6 % (20.0-45.0); MEAN CORPUSCULAR VOLUME 92 FL (80-99); MONOCYTES % (AUTO) 6.1 % (1.0-10.0); NEUTROPHILS % (AUTO) 84.6 % (45.0-75.0); PLATELET COUNT 373 K/UL (150-450); RED BLOOD COUNT 2.64 M/UL (4.20-5.40); RED CELL DISTRIBUTION WIDTH 11.7 % (11.6-14.8); WHITE BLOOD COUNT 11.8 K/UL (4.8-10.8)
[2020-02-20 07:15] LABS: ALBUMIN 1.9 G/DL (3.4-5.0); ALBUMIN/GLOBULIN RATIO 0.5 (1.0-2.7); BILIRUBIN,TOTAL 0.4 MG/DL (0.2-1.0); CALCIUM 8.3 MG/DL (8.5-10.1); CREATININE 1.1 MG/DL (0.55-1.30); PHOSPHORUS 2.7 MG/DL (2.5-4.9); POTASSIUM 3.2 MMOL/L (3.5-5.1)
[2020-02-20 08:00] VITALS: BP 145/66
[2020-02-20] MEDS: Cefepime HCl 1 GM in D5W 55 ML IVPB SCH (08:43)
[2020-02-20] MEDS: Heparin 5000 units/ml inj SUBQ SCH ×2 (08:44→20:52)
[2020-02-20] MEDS: D5 1/2NS 1,000 ML IV SCH (08:53)
--- NOTE | 2020-02-20 10:21 | Nephrology Progress Note ---
Assessment/Plan Problem List: (1) ATN (acute tubular necrosis) (2) Diabetes mellitus (3) Hypertension, uncontrolled (4) Anemia (5) Dehydration (6) Electrolyte imbalance Assessment Acute on chronic renal failure, dehydration Mild hypernatremia, free water deficit Anemia Hyperglycemia History of hypertension History of diabetes type 2, diabetic nephropathy Toxic metabolic encephalopathy Plan February 19: Patient n.p.o. for CAT scan of the abdomen. Blood pressure better controlled. Low potassium addressed with IV supplements. Continue per consultants. February 18: Blood pressure somewhat elevated, Norvasc for high blood pressure given. Labs reviewed. Renal parameters stable. Continue per consultants. Previously: Hydrate, slow, as needed Monitor renal parameters and electrolytes Keep the blood pressure and blood sugar in check Avoid nephrotoxic's Folic acid supplement p.o. Subjective ROS Limited/Unobtainable: No Constitutional: Reports: malaise, weakness Objective Objective Last 24 Hour Vital Signs Date Time Temp Pulse Resp B/P (MAP) Pulse Ox O2 Delivery O2 Flow Rate FiO2 02/20/20 08:44 64 145/66 02/20/20 04:00 98.6 81 16 148/89 (108) 94 02/20/20 00:00 98.1 84 17 130/87 (101) 95 02/19/20 21:00 Nasal Cannula 2.0 02/19/20 20:39 97.7 62 18 137/50 (79) 97 02/19/20 20:00 66 02/19/20 16:00 97.5 65 18 143/53 (83) 95 02/19/20 15:17 63 02/19/20 13:36 62 154/63 02/19/20 13:29 62 154/63 (93) 02/19/20 12:53 163/77 02/19/20 12:39 63 163/77 (105) 02/19/20 12:00 97.7 77 20 184/84 (117) 96 02/19/20 11:35 71 Intake and Output 02/19/20 02/20/20 18:59 06:59 Output Total 700 ml 380 ml Balance -700 ml -380 ml Output Urine Total 500 ml 380 ml Emesis 200 ml # Voids 1 Laboratory Tests 02/19/20 11:48: POC Whole Blood Glucose 149H 02/19/20 16:29: POC Whole Blood Glucose 145H 02/19/20 21:28: POC Whole Blood Glucose 110H 02/20/20 05:39: White Blood Count 11.8H, Red Blood Count 2.64L, Hemoglobin 8.4L, Hematocrit 24.3L, Mean Corpuscular Volume 92, Mean Corpuscular Hemoglobin 31.7H, Mean Corpuscular Hemoglobin Concent 34.6, Red Cell Distribution Width 11.7, Platelet Count 373, Mean Platelet Volume 6.1L, Neutrophils (%) (Auto) 84.6H, Lymphocytes (%) (Auto) 8.6L, Monocytes (%) (Auto) 6.1, Eosinophils (%) (Auto) 0.2, Basophils (%) (Auto) 0.4, Erythrocyte Sedimentation Rate 125H, Sodium Level 140, Potassium Level 3.2L, Chloride Level 105, Carbon Dioxide Level 24, Anion Gap 11, Blood Urea Nitrogen 23H, Creatinine 1.1, Estimat Glomerular Filtration Rate 48.3, Glucose Level 108H, Calcium Level 8.3L, Phosphorus Level 2.7, Magnesium Level 1.9, Total Bilirubin 0.4, Aspartate Amino Transf (AST/SGOT) 17, Alanine Aminotransferase (ALT/SGPT) 14, Alkaline Phosphatase 91, C-Reactive Protein, Quantitative 8.2H, Total Protein 5.8L, Albumin 1.9L, Globulin 3.9, Albumin/Globulin Ratio 0.5L, Amylase Level 45, Lipase 147 Height (Feet): 5 Height (Inches): 6.00 Weight (Pounds): 103 General Appearance: no apparent distress Abdomen: distended Objective No change Humberto Knight MD Feb 20, 2020 10:21
--- NOTE | 2020-02-20 11:20 | Infectious Diseases Prog Note ---
Assessment/Plan 74yo F with: Febrile to 100.4 Leukocytosis to 11 AMS MAOS, Cr 1.8 02/15 BCx p UA 2-4 WBC COVID screen neg MRSA nares p Resp cx p CXR: Left pleural effusion. Hazy generalized opacity probably related to such but could also indicate infiltrate Dementia SNF resident Plan: Cont cefepime & vanco IV #4/5-7 F/u BCx, resp cx Trend WBC Trend resp status Monitor CBC/CMP Monitor resp status Monitor temp curve and hemodynamics Thank you for this consult. [facility] will continue to follow. Subjective Allergies: Coded Allergies: NO KNOWN DRUG ALLERGIES (Verified Allergy, Unknown, 06/09/17) Afebrile Mild Leukocytosis Cultures negative DARI Objective Last 24 Hour Vital Signs Date Time Temp Pulse Resp B/P (MAP) Pulse Ox O2 Delivery O2 Flow Rate FiO2 02/20/20 09:00 Nasal Cannula 2.0 02/20/20 08:44 64 145/66 02/20/20 08:00 96.4 64 18 145/66 (92) 95 02/20/20 04:00 98.6 81 16 148/89 (108) 94 02/20/20 00:00 98.1 84 17 130/87 (101) 95 02/19/20 21:00 Nasal Cannula 2.0 02/19/20 20:39 97.7 62 18 137/50 (79) 97 02/19/20 20:00 66 02/19/20 16:00 97.5 65 18 143/53 (83) 95 02/19/20 15:17 63 02/19/20 13:36 62 154/63 02/19/20 13:29 62 154/63 (93) 02/19/20 12:53 163/77 02/19/20 12:39 63 163/77 (105) 02/19/20 12:00 97.7 77 20 184/84 (117) 96 02/19/20 11:35 71 Height (Feet): 5 Height (Inches): 6.00 Weight (Pounds): 103 Gen: NAD HEENT: NCAT, EOMI Pulm: BL chest rise Abd: Soft, ND Laboratory Tests Test 02/19/20 11:48 02/19/20 16:29 02/19/20 21:28 02/20/20 05:39 POC Whole Blood Glucose 149 MG/DL (74-106) H 145 MG/DL (74-106) H 110 MG/DL (74-106) H White Blood Count 11.8 K/UL (4.8-10.8) H Red Blood Count 2.64 M/UL (4.20-5.40) L Hemoglobin 8.4 G/DL (12.0-16.0) L Hematocrit 24.3 % (37.0-47.0) L Mean Corpuscular Volume 92 FL (80-99) Mean Corpuscular Hemoglobin 31.7 PG (27.0-31.0) H Mean Corpuscular Hemoglobin Concent 34.6 G/DL (32.0-36.0) Red Cell Distribution Width 11.7 % (11.6-14.8) Platelet Count 373 K/UL (150-450) Mean Platelet Volume 6.1 FL (6.5-10.1) L Neutrophils (%) (Auto) 84.6 % (45.0-75.0) H Lymphocytes (%) (Auto) 8.6 % (20.0-45.0) L Monocytes (%) (Auto) 6.1 % (1.0-10.0) Eosinophils (%) (Auto) 0.2 % (0.0-3.0) Basophils (%) (Auto) 0.4 % (0.0-2.0) Erythrocyte Sedimentation Rate 125 MM/HR (0-30) H Sodium Level 140 MMOL/L (136-145) Potassium Level 3.2 MMOL/L (3.5-5.1) L Chloride Level 105 MMOL/L (98-107) Carbon Dioxide Level 24 MMOL/L (21-32) Anion Gap 11 mmol/L (5-15) Blood Urea Nitrogen 23 mg/dL (7-18) H Creatinine 1.1 MG/DL (0.55-1.30) Estimat Glomerular Filtration Rate 48.3 mL/min (>60) Glucose Level 108 MG/DL (74-106) H Calcium Level 8.3 MG/DL (8.5-10.1) L Phosphorus Level 2.7 MG/DL (2.5-4.9) Magnesium Level 1.9 MG/DL (1.8-2.4) Total Bilirubin 0.4 MG/DL (0.2-1.0) Aspartate Amino Transf (AST/SGOT) 17 U/L (15-37) Alanine Aminotransferase (ALT/SGPT) 14 U/L (12-78) Alkaline Phosphatase 91 U/L (46-116) C-Reactive Protein, Quantitative 8.2 mg/dL (0.00-0.90) H Total Protein 5.8 G/DL (6.4-8.2) L Albumin 1.9 G/DL (3.4-5.0) L Globulin 3.9 g/dL Albumin/Globulin Ratio 0.5 (1.0-2.7) L Amylase Level 45 U/L (25-115) Lipase 147 U/L (73-393) Current Medications Medications (Trade) Dose Ordered Sig/Kannan Route PRN Reason Start Time Stop Time Status Last Admin Dose Admin Acetaminophen (Tylenol) 650 mg Q4H PRN ORAL fever 02/16/20 12:15 03/17/20 12:14 Albuterol/ Ipratropium (Albuterol/ Ipratropium) 3 ml Q4H PRN HHN Shortness of Breath 02/16/20 12:15 02/21/20 12:14 Amlodipine Besylate (Norvasc) 10 mg DAILY ORAL 02/19/20 13:00 03/20/20 12:59 02/20/20 08:44 Barium Sulfate (Readi-Cat 2) 450 ml NOW PRN ORAL Radiology Procedure 02/19/20 11:45 02/21/20 11:44 Cefepime HCl 1 gm/ Dextrose 55 ml @ 110 mls/hr Q24H IVPB 02/17/20 09:00 02/24/20 08:59 02/20/20 08:43 Clonidine HCl (Catapres Tab) 0.1 mg Q6H PRN ORAL For SBP >160 02/19/20 10:45 05/19/20 10:44 02/19/20 12:53 Dextrose (Dextrose 50%) 25 ml Q30M PRN IV Hypoglycemia 02/16/20 12:15 05/16/20 12:14 Dextrose (Dextrose 50%) 50 ml Q30M PRN IV Hypoglycemia 02/16/20 12:15 05/16/20 12:14 Dextrose/Sodium Chloride 1,000 ml @ 50 mls/hr Q20H IV 02/20/20 08:45 03/21/20 08:44 02/20/20 08:53 Enalaprilat (Vasotec) 2.5 mg Q6H PRN IV SBP>160 02/19/20 15:00 03/20/20 14:59 Folic Acid (Folate) 2 mg DAILY ORAL 02/17/20 15:45 03/18/20 15:44 02/20/20 08:43 Heparin Sodium (Porcine) (Heparin 5000 units/ml) 5,000 units EVERY 12 HOURS SUBQ 02/16/20 21:00 04/01/20 20:59 02/20/20 08:44 Insulin Aspart (NovoLOG) BEFORE MEALS AND HS SUBQ 02/16/20 16:30 05/16/20 16:29 Iohexol (OMNIPAQUE-300 100ml) 100 ml NOW PRN INJ Radiology Procedure 02/19/20 11:45 02/21/20 11:44 Nitroglycerin (Ntg) 0.4 mg Q5M PRN SL Prn Chest Pain 02/16/20 12:15 03/17/20 12:14 Ondansetron HCl (Zofran) 4 mg Q6H PRN IVP Nausea & Vomiting 02/16/20 12:15 03/17/20 12:14 02/19/20 11:46 Polyethylene Glycol (Miralax) 17 gm DAILYPRN PRN ORAL Constipation 02/16/20 12:15 03/17/20 12:14 Potassium Chloride 100 ml @ 100 mls/hr Q1H IVPB 02/20/20 11:00 02/20/20 12:59 Promethazine HCl/ Codeine (Phenergan with Codeine) 5 ml Q4H PRN ORAL For Cough 02/16/20 12:15 03/17/20 12:14 Temazepam (Restoril) 15 mg HSPRN PRN ORAL Insomnia 02/16/20 12:15 02/23/20 12:14 Vancomycin HCl (Vanco pharmacy to dose) 1 ea DAILY PRN MISC Per rx protocol 02/16/20 12:15 03/17/20 12:14 Vancomycin HCl 1 gm/Dextrose 275 ml @ 183.708 mls/hr Q24H IVPB 02/18/20 11:00 02/23/20 10:59 02/19/20 11:46 Ethan Bell MD Feb 20, 2020 11:20
[2020-02-20 12:00] VITALS: BP 142/70
[2020-02-20] MEDS: Vancomycin 1gm/D5W 275ml IVPB SCH ×2 (12:02)
--- NOTE | 2020-02-20 12:17 | General Progress Note ---
Subjective ROS Limited/Unobtainable: No Allergies: Coded Allergies: NO KNOWN DRUG ALLERGIES (Verified Allergy, Unknown, 06/09/17) Objective Last 24 Hour Vital Signs Date Time Temp Pulse Resp B/P (MAP) Pulse Ox O2 Delivery O2 Flow Rate FiO2 02/20/20 09:00 Nasal Cannula 2.0 02/20/20 08:44 64 145/66 02/20/20 08:00 96.4 64 18 145/66 (92) 95 02/20/20 04:00 98.6 81 16 148/89 (108) 94 02/20/20 00:00 98.1 84 17 130/87 (101) 95 02/19/20 21:00 Nasal Cannula 2.0 02/19/20 20:39 97.7 62 18 137/50 (79) 97 02/19/20 20:00 66 02/19/20 16:00 97.5 65 18 143/53 (83) 95 02/19/20 15:17 63 02/19/20 13:36 62 154/63 02/19/20 13:29 62 154/63 (93) 02/19/20 12:53 163/77 02/19/20 12:39 63 163/77 (105) Intake and Output 02/19/20 02/20/20 19:00 07:00 Output Total 700 ml 380 ml Balance -700 ml -380 ml Output Urine Total 500 ml 380 ml Emesis 200 ml # Voids 1 Laboratory Tests 02/19/20 16:29: POC Whole Blood Glucose 145H 02/19/20 21:28: POC Whole Blood Glucose 110H 02/20/20 05:39: White Blood Count 11.8H, Red Blood Count 2.64L, Hemoglobin 8.4L, Hematocrit 24.3L, Mean Corpuscular Volume 92, Mean Corpuscular Hemoglobin 31.7H, Mean Corpuscular Hemoglobin Concent 34.6, Red Cell Distribution Width 11.7, Platelet Count 373, Mean Platelet Volume 6.1L, Neutrophils (%) (Auto) 84.6H, Lymphocytes (%) (Auto) 8.6L, Monocytes (%) (Auto) 6.1, Eosinophils (%) (Auto) 0.2, Basophils (%) (Auto) 0.4, Erythrocyte Sedimentation Rate 125H, Sodium Level 140, Potassium Level 3.2L, Chloride Level 105, Carbon Dioxide Level 24, Anion Gap 11, Blood Urea Nitrogen 23H, Creatinine 1.1, Estimat Glomerular Filtration Rate 48.3, Glucose Level 108H, Calcium Level 8.3L, Phosphorus Level 2.7, Magnesium Level 1.9, Total Bilirubin 0.4, Aspartate Amino Transf (AST/SGOT) 17, Alanine Aminotransferase (ALT/SGPT) 14, Alkaline Phosphatase 91, C-Reactive Protein, Quantitative 8.2H, Total Protein 5.8L, Albumin 1.9L, Globulin 3.9, Albumin/Globulin Ratio 0.5L, Amylase Level 45, Lipase 147 Height (Feet): 5 Height (Inches): 6.00 Weight (Pounds): 103 General Appearance: no apparent distress EENT: normal ENT inspection Neck: supple Cardiovascular: normal rate Respiratory/Chest: decreased breath sounds Abdomen: normal bowel sounds, non tender, soft Extremities: non-tender Assessment/Plan Problem List: (1) Altered mental status ICD Codes: R41.82 - Altered mental status, unspecified SNOMED: 519359123 Qualifiers: Qualified Codes: R41.82 - Altered mental status, unspecified (2) Anemia ICD Codes: D64.9 - Anemia, unspecified SNOMED: 983025228 (3) Dehydration ICD Codes: E86.0 - Dehydration SNOMED: 29329173 (4) Pneumonia ICD Codes: J18.9 - Pneumonia, unspecified organism SNOMED: 621482386 Qualifiers: Qualified Codes: J18.9 - Pneumonia, unspecified organism Assessment/Plan: anemia work up stool ob fu H&H and transfuse to keep HGB above 7 given active PNA will hold GI procedures for now Ang Snowden MD Feb 20, 2020 12:17
--- NOTE | 2020-02-20 12:42 | Diagnostic Imaging Report ---
CT ABDOMEN AND PELVIS WITH CONTRAST INDICATION: Vomiting TECHNIQUE: Continuous helical transaxial imaging of the abdomen and pelvis was obtained from the lung bases to the pubic symphysis during intravenous contrast administration. Coronal 2-D reformats were also obtained. Study obtained in a Siemens sensation [address] Automatic Exposure Control was utilized. Total Dose length Product (DLP): 177.[address] Dose Index Volume (CTDIvol): 3.6 mGy COMPARISON: CT abdomen pelvis dated 11/12/2018 FINDINGS: Examination is limited due to motion artifact. Lower chest:: Trace right pleural effusion. Small left pleural effusion with dense left lower lobe consolidation. Small hiatal hernia with concentric wall thickening of the distal esophagus. Hepatobiliary:: Redemonstration cholelithiasis without evidence of acute cholecystitis. Genitourinary:: Atrophic left kidney is again noted. Unchanged appearance of left parapelvic cysts.There is a large amount of gas in the urinary bladder, which contains Connolly catheter. Adrenals:: Unremarkable. Pancreas:: Unremarkable. Gastrointestinal:: There is diverticulosis without evidence of diverticulitis. Stomach is mildly distended with fluid. There is mild Moderate colonic stool burden. There is concentric wall thickening of the descending and proximal transverse colon, with some mucosal edema. Spleen: : Unremarkable. Peritoneum:: No free air or free fluid. Vasculature:: Moderate to severe aortoiliac atherosclerotic calcification. Bones and soft tissues:: Mild anasarca. There are multilevel discogenic degenerative changes of the visualized spine. Unchanged grade 1 retrolisthesis of L1 on L2. Stable appearance of compression deformity of L1. IMPRESSION: Limited examination due to significant motion artifact. Within the limitations: 1. Wall thickening and submucosal edema of the ascending and proximal transverse colon, which could represent colitis in the appropriate clinical context. 2. Concentric thickening of the distal esophagus, which can be seen with reflux esophagitis. 3. Large amount of gas in urinary bladder, with Connolly catheter in place. Clinical correlation is recommended. 4. Small left and trace right pleural effusions. Dense left lower lobe consolidation may represent compressive atelectasis versus pneumonia. 5. Atrophic left kidney. The CT scanner at [facility] is accredited by the [employer] and the scans are performed using protocols designed to limit radiation exposure to as low as reasonably achievable to attain images of sufficient resolution adequate for diagnostic evaluation.
--- NOTE | 2020-02-20 14:03 | Pulmonology Progress Note ---
Subjective ROS Limited/Unobtainable: No Constitutional: Reports: no symptoms HEENT: Repors: no symptoms Allergies: Coded Allergies: NO KNOWN DRUG ALLERGIES (Verified Allergy, Unknown, 06/09/17) Objective Last 24 Hour Vital Signs Date Time Temp Pulse Resp B/P (MAP) Pulse Ox O2 Delivery O2 Flow Rate FiO2 02/20/20 12:00 97.5 71 18 142/70 (94) 97 02/20/20 09:00 Nasal Cannula 2.0 02/20/20 08:44 64 145/66 02/20/20 08:00 96.4 64 18 145/66 (92) 95 02/20/20 04:00 98.6 81 16 148/89 (108) 94 02/20/20 00:00 98.1 84 17 130/87 (101) 95 02/19/20 21:00 Nasal Cannula 2.0 02/19/20 20:39 97.7 62 18 137/50 (79) 97 02/19/20 20:00 66 02/19/20 16:00 97.5 65 18 143/53 (83) 95 02/19/20 15:17 63 Intake and Output 02/19/20 02/20/20 19:00 07:00 Output Total 700 ml 380 ml Balance -700 ml -380 ml Output Urine Total 500 ml 380 ml Emesis 200 ml # Voids 1 General Appearance: WD/WN HEENT: normocephalic, atraumatic Respiratory: chest wall non-tender, lungs clear Breasts: no masses Cardiovascular: normal peripheral pulses, normal rate, no JVD Abdomen: normal bowel sounds, soft, non tender Genitourinary: normal external genitalia Extremities: no cyanosis Skin: no rash, no lesions 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 Lymphatic: no neck adenopathy Laboratory Tests 02/19/20 16:29: POC Whole Blood Glucose 145H 02/19/20 21:28: POC Whole Blood Glucose 110H 02/20/20 05:39: White Blood Count 11.8H, Red Blood Count 2.64L, Hemoglobin 8.4L, Hematocrit 24.3L, Mean Corpuscular Volume 92, Mean Corpuscular Hemoglobin 31.7H, Mean Corpuscular Hemoglobin Concent 34.6, Red Cell Distribution Width 11.7, Platelet Count 373, Mean Platelet Volume 6.1L, Neutrophils (%) (Auto) 84.6H, Lymphocytes (%) (Auto) 8.6L, Monocytes (%) (Auto) 6.1, Eosinophils (%) (Auto) 0.2, Basophils (%) (Auto) 0.4, Erythrocyte Sedimentation Rate 125H, Sodium Level 140, Potassium Level 3.2L, Chloride Level 105, Carbon Dioxide Level 24, Anion Gap 11, Blood Urea Nitrogen 23H, Creatinine 1.1, Estimat Glomerular Filtration Rate 48.3, Glucose Level 108H, Calcium Level 8.3L, Phosphorus Level 2.7, Magnesium Level 1.9, Total Bilirubin 0.4, Aspartate Amino Transf (AST/SGOT) 17, Alanine Aminotransferase (ALT/SGPT) 14, Alkaline Phosphatase 91, C-Reactive Protein, Quantitative 8.2H, Total Protein 5.8L, Albumin 1.9L, Globulin 3.9, Albumin/Globulin Ratio 0.5L, Amylase Level 45, Lipase 147 Current Medications Medications (Trade) Dose Ordered Sig/Knanan Route PRN Reason Start Time Stop Time Status Last Admin Dose Admin Acetaminophen (Tylenol) 650 mg Q4H PRN ORAL fever 02/16/20 12:15 03/17/20 12:14 Albuterol/ Ipratropium (Albuterol/ Ipratropium) 3 ml Q4H PRN HHN Shortness of Breath 02/16/20 12:15 02/21/20 12:14 Amlodipine Besylate (Norvasc) 10 mg DAILY ORAL 02/19/20 13:00 03/20/20 12:59 02/20/20 08:44 Barium Sulfate (Readi-Cat 2) 450 ml NOW PRN ORAL Radiology Procedure 02/19/20 11:45 02/21/20 11:44 Cefepime HCl 1 gm/ Dextrose 55 ml @ 110 mls/hr Q24H IVPB 02/17/20 09:00 02/24/20 08:59 02/20/20 08:43 Clonidine HCl (Catapres Tab) 0.1 mg Q6H PRN ORAL For SBP >160 02/19/20 10:45 05/19/20 10:44 02/19/20 12:53 Dextrose (Dextrose 50%) 25 ml Q30M PRN IV Hypoglycemia 02/16/20 12:15 05/16/20 12:14 Dextrose (Dextrose 50%) 50 ml Q30M PRN IV Hypoglycemia 02/16/20 12:15 05/16/20 12:14 Dextrose/Sodium Chloride 1,000 ml @ 50 mls/hr Q20H IV 02/20/20 08:45 03/21/20 08:44 02/20/20 08:53 Docusate Sodium (Colace) 100 mg TWICE A DAY ORAL 02/20/20 18:00 03/21/20 17:59 Enalaprilat (Vasotec) 2.5 mg Q6H PRN IV SBP>160 02/19/20 15:00 03/20/20 14:59 Folic Acid (Folate) 2 mg DAILY ORAL 02/17/20 15:45 03/18/20 15:44 02/20/20 08:43 Heparin Sodium (Porcine) (Heparin 5000 units/ml) 5,000 units EVERY 12 HOURS SUBQ 02/16/20 21:00 04/01/20 20:59 02/20/20 08:44 Insulin Aspart (NovoLOG) BEFORE MEALS AND HS SUBQ 02/16/20 16:30 05/16/20 16:29 Iohexol (OMNIPAQUE-300 100ml) 100 ml NOW PRN INJ Radiology Procedure 02/19/20 11:45 02/21/20 11:44 Nitroglycerin (Ntg) 0.4 mg Q5M PRN SL Prn Chest Pain 02/16/20 12:15 03/17/20 12:14 Ondansetron HCl (Zofran) 4 mg Q6H PRN IVP Nausea & Vomiting 02/16/20 12:15 03/17/20 12:14 02/19/20 11:46 Polyethylene Glycol (Miralax) 17 gm DAILYPRN PRN ORAL Constipation 02/16/20 12:15 03/17/20 12:14 Potassium Chloride 100 ml @ 100 mls/hr Q1H IVPB 02/20/20 13:00 02/20/20 14:59 Promethazine HCl/ Codeine (Phenergan with Codeine) 5 ml Q4H PRN ORAL For Cough 02/16/20 12:15 03/17/20 12:14 Temazepam (Restoril) 15 mg HSPRN PRN ORAL Insomnia 02/16/20 12:15 02/23/20 12:14 Vancomycin HCl (Vanco pharmacy to dose) 1 ea DAILY PRN MISC Per rx protocol 02/16/20 12:15 03/17/20 12:14 Vancomycin HCl 1 gm/Dextrose 275 ml @ 183.708 mls/hr Q24H IVPB 02/18/20 11:00 02/23/20 10:59 02/20/20 12:02 Assessment/Plan Problems: (1) Sepsis (2) Acute metabolic encephalopathy (3) ATN (acute tubular necrosis) (4) Generalized weakness (5) Pneumonia (6) Diabetes mellitus Assessment/Plan has episodes of projectile vomiting zofran prn Labetotol iv for BPpan culture iv abx iv fluids to correct the hypernatremia slidng scale swallow study when better Oscar Quezada MD Feb 20, 2020 14:03
[2020-02-20 16:00] VITALS: BP 140/70
[2020-02-20] MEDS: Docusate 100mg cap ORAL SCH (17:11)
--- NOTE | 2020-02-20 17:23 | Internal Med Progress Note ---
Subjective Date of Service: Feb 20, 2020 Physician Name NicaRhys Attending Physician Ari Mckeon MD Current Medications Medications (Trade) Dose Ordered Sig/Kannan Route PRN Reason Start Time Stop Time Status Last Admin Dose Admin Acetaminophen (Tylenol) 650 mg Q4H PRN ORAL fever 02/16/20 12:15 03/17/20 12:14 Albuterol/ Ipratropium (Albuterol/ Ipratropium) 3 ml Q4H PRN HHN Shortness of Breath 02/16/20 12:15 02/21/20 12:14 Amlodipine Besylate (Norvasc) 10 mg DAILY ORAL 02/19/20 13:00 03/20/20 12:59 02/20/20 08:44 Barium Sulfate (Readi-Cat 2) 450 ml NOW PRN ORAL Radiology Procedure 02/19/20 11:45 02/21/20 11:44 Cefepime HCl 1 gm/ Dextrose 55 ml @ 110 mls/hr Q24H IVPB 02/17/20 09:00 02/24/20 08:59 02/20/20 08:43 Clonidine HCl (Catapres Tab) 0.1 mg Q6H PRN ORAL For SBP >160 02/19/20 10:45 05/19/20 10:44 02/20/20 15:13 Dextrose (Dextrose 50%) 25 ml Q30M PRN IV Hypoglycemia 02/16/20 12:15 05/16/20 12:14 Dextrose (Dextrose 50%) 50 ml Q30M PRN IV Hypoglycemia 02/16/20 12:15 05/16/20 12:14 Dextrose/Sodium Chloride 1,000 ml @ 50 mls/hr Q20H IV 02/20/20 08:45 03/21/20 08:44 02/20/20 08:53 Docusate Sodium (Colace) 100 mg TWICE A DAY ORAL 02/20/20 18:00 03/21/20 17:59 02/20/20 17:11 Enalaprilat (Vasotec) 2.5 mg Q6H PRN IV SBP>160 02/19/20 15:00 03/20/20 14:59 Folic Acid (Folate) 2 mg DAILY ORAL 02/17/20 15:45 03/18/20 15:44 02/20/20 08:43 Heparin Sodium (Porcine) (Heparin 5000 units/ml) 5,000 units EVERY 12 HOURS SUBQ 02/16/20 21:00 04/01/20 20:59 02/20/20 08:44 Insulin Aspart (NovoLOG) BEFORE MEALS AND HS SUBQ 02/16/20 16:30 05/16/20 16:29 Iohexol (OMNIPAQUE-300 100ml) 100 ml NOW PRN INJ Radiology Procedure 02/19/20 11:45 02/21/20 11:44 Nitroglycerin (Ntg) 0.4 mg Q5M PRN SL Prn Chest Pain 02/16/20 12:15 03/17/20 12:14 Ondansetron HCl (Zofran) 4 mg Q6H PRN IVP Nausea & Vomiting 02/16/20 12:15 03/17/20 12:14 02/19/20 11:46 Polyethylene Glycol (Miralax) 17 gm DAILYPRN PRN ORAL Constipation 02/16/20 12:15 03/17/20 12:14 Promethazine HCl/ Codeine (Phenergan with Codeine) 5 ml Q4H PRN ORAL For Cough 02/16/20 12:15 03/17/20 12:14 Temazepam (Restoril) 15 mg HSPRN PRN ORAL Insomnia 02/16/20 12:15 02/23/20 12:14 Vancomycin HCl ([facility] pharmacy to dose) 1 ea DAILY PRN MISC Per rx protocol 02/16/20 12:15 03/17/20 12:14 Vancomycin HCl 1 gm/Dextrose 275 ml @ 183.708 mls/hr Q24H IVPB 02/18/20 11:00 02/23/20 10:59 02/20/20 12:02 Allergies: Coded Allergies: NO KNOWN DRUG ALLERGIES (Verified Allergy, Unknown, 06/09/17) ROS Limited/Unobtainable: Yes Subjective 74 YO F admitted with gen weakness. Now LLL pneumonia/pleural effusion. Cover for Zaida Cole-Dr Mckeon Objective Last Vital Signs Date Time Temp Pulse Resp B/P (MAP) Pulse Ox O2 Delivery O2 Flow Rate FiO2 02/20/20 16:00 97.0 62 18 140/70 (93) 97 02/20/20 09:00 Nasal Cannula 2.0 Laboratory Tests Test 02/19/20 21:28 02/20/20 05:39 POC Whole Blood Glucose 110 MG/DL (74-106) H White Blood Count 11.8 K/UL (4.8-10.8) H Red Blood Count 2.64 M/UL (4.20-5.40) L Hemoglobin 8.4 G/DL (12.0-16.0) L Hematocrit 24.3 % (37.0-47.0) L Mean Corpuscular Volume 92 FL (80-99) Mean Corpuscular Hemoglobin 31.7 PG (27.0-31.0) H Mean Corpuscular Hemoglobin Concent 34.6 G/DL (32.0-36.0) Red Cell Distribution Width 11.7 % (11.6-14.8) Platelet Count 373 K/UL (150-450) Mean Platelet Volume 6.1 FL (6.5-10.1) L Neutrophils (%) (Auto) 84.6 % (45.0-75.0) H Lymphocytes (%) (Auto) 8.6 % (20.0-45.0) L Monocytes (%) (Auto) 6.1 % (1.0-10.0) Eosinophils (%) (Auto) 0.2 % (0.0-3.0) Basophils (%) (Auto) 0.4 % (0.0-2.0) Erythrocyte Sedimentation Rate 125 MM/HR (0-30) H Sodium Level 140 MMOL/L (136-145) Potassium Level 3.2 MMOL/L (3.5-5.1) L Chloride Level 105 MMOL/L (98-107) Carbon Dioxide Level 24 MMOL/L (21-32) Anion Gap 11 mmol/L (5-15) Blood Urea Nitrogen 23 mg/dL (7-18) H Creatinine 1.1 MG/DL (0.55-1.30) Estimat Glomerular Filtration Rate 48.3 mL/min (>60) Glucose Level 108 MG/DL (74-106) H Calcium Level 8.3 MG/DL (8.5-10.1) L Phosphorus Level 2.7 MG/DL (2.5-4.9) Magnesium Level 1.9 MG/DL (1.8-2.4) Total Bilirubin 0.4 MG/DL (0.2-1.0) Aspartate Amino Transf (AST/SGOT) 17 U/L (15-37) Alanine Aminotransferase (ALT/SGPT) 14 U/L (12-78) Alkaline Phosphatase 91 U/L (46-116) C-Reactive Protein, Quantitative 8.2 mg/dL (0.00-0.90) H Total Protein 5.8 G/DL (6.4-8.2) L Albumin 1.9 G/DL (3.4-5.0) L Globulin 3.9 g/dL Albumin/Globulin Ratio 0.5 (1.0-2.7) L Amylase Level 45 U/L (25-115) Lipase 147 U/L (73-393) Intake and Output 02/19/20 02/20/20 18:59 06:59 Output Total 700 ml 380 ml Balance -700 ml -380 ml Output Urine Total 500 ml 380 ml Emesis 200 ml # Voids 1 Objective PHYSICAL EXAMINATION: GENERAL: The patient awake, responsive, and in no acute distress, however, looking chronically ill-appearing patient. HEAD AND NECK: Pupils are equal and reactive to light. Extraocular movements are intact. Neck was supple. No JVD. LUNGS: Good air entry. No wheezing or rales. Poor inspiratory effort. HEART: S1, S2. Regular rhythm. No murmur or gallops. ABDOMEN: Soft, nondistended, and nontender. Positive bowel sounds. EXTREMITIES: No cyanosis, clubbing or edema. NEUROLOGIC: Cranial nerves II through XII grossly intact. The patient is moving all the extremities spontaneously. RECTAL: Refused and deferred. GENITOURINARY: Refused and deferred. PSYCHIATRIC: Mood and affect is intact. Assessment/Plan Assessment/Plan ASSESSMENT: 1. Generalized weakness 2. Acute kidney injury with ATN. 3. Hypernatremia. 4. Dehydration and hypovolemia. 5. Anemia, most likely anemia of chronic disease. 6. Hypertension. 7. Dyslipidemia. 8. Diabetes type 2. 9. Acute metabolic encephalopathy, most likely secondary to infection as well as dehydration. 10. LLL pneumonia 11. Left pleural effusion PLAN: 1. Admit the patient to monitored unit. 2. antibiotics = vancomycin and cefepime 3. Code status is Full Code. 4. DVT prophylaxis heparin subcutaneous. 5. Dr. Quezada = Pulmonary/Critical Care Rhys Yousif MD Feb 20, 2020 17:23
[2020-02-20 20:00] VITALS: BP 136/79
[2020-02-21] VITALS: BP 131/68
[2020-02-21 04:00] VITALS: BP 159/65
[2020-02-21] MEDS: D5 1/2NS 1,000 ML IV SCH (04:10)
[2020-02-21] MEDS: NovoLOG Insulin Flexpen SUBQ SCH ×4 (06:14→20:09)
[2020-02-21 06:15] LABS: BASOPHILS % (AUTO) 0.6 % (0.0-2.0); EOSINOPHILS % (AUTO) 0.3 % (0.0-3.0); HEMATOCRIT 24.5 % (37.0-47.0); HEMOGLOBIN 8.6 G/DL (12.0-16.0); LYMPHOCYTES % (AUTO) 11.2 % (20.0-45.0); MEAN CORPUSCULAR VOLUME 91 FL (80-99); MONOCYTES % (AUTO) 7.8 % (1.0-10.0); NEUTROPHILS % (AUTO) 80.1 % (45.0-75.0); PLATELET COUNT 388 K/UL (150-450); RED BLOOD COUNT 2.68 M/UL (4.20-5.40); RED CELL DISTRIBUTION WIDTH 11.4 % (11.6-14.8); WHITE BLOOD COUNT 10.1 K/UL (4.8-10.8)
[2020-02-21 06:36] LABS: % IRON SATURATION 20 % (15-50); IRON 28 ug/dL (50-175); TOTAL IRON BINDING CAPACITY 137 ug/dL (250-450)
[2020-02-21 06:38] LABS: ANION GAP 7 mmol/L (5-15); BLOOD UREA NITROGEN 16 mg/dL (7-18); CALCIUM 8.4 MG/DL (8.5-10.1); CARBON DIOXIDE 25 MMOL/L (21-32); CHLORIDE 105 MMOL/L (98-107); CREATININE 0.9 MG/DL (0.55-1.30); POTASSIUM 3.3 MMOL/L (3.5-5.1); SODIUM 137 MMOL/L (136-145)
[2020-02-21 08:00] VITALS: BP 141/77
--- NOTE | 2020-02-21 08:28 | General Progress Note ---
Subjective ROS Limited/Unobtainable: Yes Allergies: Coded Allergies: NO KNOWN DRUG ALLERGIES (Verified Allergy, Unknown, 06/09/17) Objective Last 24 Hour Vital Signs Date Time Temp Pulse Resp B/P (MAP) Pulse Ox O2 Delivery O2 Flow Rate FiO2 02/21/20 04:00 97.3 58 18 159/65 (96) 97 02/21/20 00:00 97.2 62 18 131/68 (89) 97 02/20/20 21:00 Room Air 02/20/20 20:00 98.4 64 18 136/79 (98) 97 02/20/20 16:00 97.0 62 18 140/70 (93) 97 02/20/20 15:13 167/72 02/20/20 12:00 97.5 71 18 142/70 (94) 97 02/20/20 09:00 Nasal Cannula 2.0 02/20/20 08:44 64 145/66 Intake and Output 02/20/20 02/21/20 18:59 06:59 Intake Total 600 ml Output Total 900 ml 300 ml Balance -900 ml 300 ml IV Total 600 ml Output Urine Total 900 ml 300 ml Laboratory Tests 02/21/20 05:55: White Blood Count 10.1, Red Blood Count 2.68L, Hemoglobin 8.6L, Hematocrit 24.5L , Mean Corpuscular Volume 91, Mean Corpuscular Hemoglobin 32.0H, Mean Corpuscular Hemoglobin Concent 35.0, Red Cell Distribution Width 11.4L, Platelet Count 388, Mean Platelet Volume 6.2L, Neutrophils (%) (Auto) 80.1H, Lymphocytes (%) (Auto) 11.2L, Monocytes (%) (Auto) 7.8, Eosinophils (%) (Auto) 0.3, Basophils (%) (Auto) 0.6, Sodium Level 137, Potassium Level 3.3L, Chloride Level 105, Carbon Dioxide Level 25, Anion Gap 7, Blood Urea Nitrogen 16, Creatinine 0.9, Estimat Glomerular Filtration Rate > 60, Glucose Level 141H, Calcium Level 8.4L, Iron Level 28L, Total Iron Binding Capacity 137L, Percent Iron Saturation 20, Unsaturated Iron Binding 109L Height (Feet): 5 Height (Inches): 6.00 Weight (Pounds): 103 General Appearance: alert EENT: normal ENT inspection Neck: supple Cardiovascular: normal rate Respiratory/Chest: decreased breath sounds Abdomen: hypoactive bowel sounds Extremities: non-tender Assessment/Plan Problem List: (1) Altered mental status ICD Codes: R41.82 - Altered mental status, unspecified SNOMED: 512304116 Qualifiers: Qualified Codes: R41.82 - Altered mental status, unspecified (2) Anemia ICD Codes: D64.9 - Anemia, unspecified SNOMED: 599003331 (3) Dehydration ICD Codes: E86.0 - Dehydration SNOMED: 29752057 (4) Pneumonia ICD Codes: J18.9 - Pneumonia, unspecified organism SNOMED: 999531571 Qualifiers: Qualified Codes: J18.9 - Pneumonia, unspecified organism Assessment/Plan: anemia work up stool ob fu H&H and transfuse to keep HGB above 7 CT reviewed>>>? colitis and esophagitis ppi EGD in am bowel regimen Ang Snowden MD Feb 21, 2020 08:28
[2020-02-21] MEDS: Docusate 100mg cap ORAL SCH ×2 (08:51→17:58)
[2020-02-21] MEDS: Pantoprazole Inj IVP SCH (08:51)
[2020-02-21] MEDS: Lactulose 20gm/30ml UDC ORAL SCH ×2 (08:52→17:58)
[2020-02-21] MEDS: Heparin 5000 units/ml inj SUBQ SCH ×2 (08:53→20:13)
--- NOTE | 2020-02-21 09:46 | Pulmonology Progress Note ---
Subjective ROS Limited/Unobtainable: Yes Constitutional: Reports: no symptoms HEENT: Repors: no symptoms Allergies: Coded Allergies: NO KNOWN DRUG ALLERGIES (Verified Allergy, Unknown, 06/09/17) Objective Last 24 Hour Vital Signs Date Time Temp Pulse Resp B/P (MAP) Pulse Ox O2 Delivery O2 Flow Rate FiO2 02/21/20 09:00 Room Air 02/21/20 08:51 67 141/77 02/21/20 08:00 96.8 67 19 141/77 (98) 97 02/21/20 04:00 97.3 58 18 159/65 (96) 97 02/21/20 00:00 97.2 62 18 131/68 (89) 97 02/20/20 21:00 Room Air 02/20/20 20:00 98.4 64 18 136/79 (98) 97 02/20/20 16:00 97.0 62 18 140/70 (93) 97 02/20/20 15:13 167/72 02/20/20 12:00 97.5 71 18 142/70 (94) 97 Intake and Output 02/20/20 02/21/20 19:00 07:00 Intake Total 50 ml 550 ml Output Total 900 ml 300 ml Balance -850 ml 250 ml IV Total 50 ml 550 ml Output Urine Total 900 ml 300 ml General Appearance: WD/WN HEENT: normocephalic, atraumatic Respiratory: chest wall non-tender, lungs clear Breasts: no masses Cardiovascular: normal peripheral pulses, normal rate, no JVD Abdomen: normal bowel sounds, soft, non tender Genitourinary: normal external genitalia Extremities: no cyanosis Skin: no rash, no lesions 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 Lymphatic: no neck adenopathy Laboratory Tests 02/21/20 05:55: White Blood Count 10.1, Red Blood Count 2.68L, Hemoglobin 8.6L, Hematocrit 24.5L , Mean Corpuscular Volume 91, Mean Corpuscular Hemoglobin 32.0H, Mean Corpuscular Hemoglobin Concent 35.0, Red Cell Distribution Width 11.4L, Platelet Count 388, Mean Platelet Volume 6.2L, Neutrophils (%) (Auto) 80.1H, Lymphocytes (%) (Auto) 11.2L, Monocytes (%) (Auto) 7.8, Eosinophils (%) (Auto) 0.3, Basophils (%) (Auto) 0.6, Sodium Level 137, Potassium Level 3.3L, Chloride Level 105, Carbon Dioxide Level 25, Anion Gap 7, Blood Urea Nitrogen 16, Creatinine 0.9, Estimat Glomerular Filtration Rate > 60, Glucose Level 141H, Calcium Level 8.4L, Iron Level 28L, Total Iron Binding Capacity 137L, Percent Iron Saturation 20, Unsaturated Iron Binding 109L Current Medications Medications (Trade) Dose Ordered Sig/Kannan Route PRN Reason Start Time Stop Time Status Last Admin Dose Admin Acetaminophen (Tylenol) 650 mg Q4H PRN ORAL fever 02/16/20 12:15 03/17/20 12:14 Albuterol/ Ipratropium (Albuterol/ Ipratropium) 3 ml Q4H PRN HHN Shortness of Breath 02/16/20 12:15 02/21/20 12:14 Amlodipine Besylate (Norvasc) 10 mg DAILY ORAL 02/19/20 13:00 03/20/20 12:59 02/21/20 08:51 Barium Sulfate (Readi-Cat 2) 450 ml NOW PRN ORAL Radiology Procedure 02/19/20 11:45 02/21/20 11:44 Cefepime HCl 1 gm/ Dextrose 55 ml @ 110 mls/hr Q24H IVPB 02/17/20 09:00 02/24/20 08:59 02/20/20 08:43 Clonidine HCl (Catapres Tab) 0.1 mg Q6H PRN ORAL For SBP >160 02/19/20 10:45 05/19/20 10:44 02/20/20 15:13 Dextrose (Dextrose 50%) 25 ml Q30M PRN IV Hypoglycemia 02/16/20 12:15 05/16/20 12:14 Dextrose (Dextrose 50%) 50 ml Q30M PRN IV Hypoglycemia 02/16/20 12:15 05/16/20 12:14 Dextrose/Sodium Chloride 1,000 ml @ 50 mls/hr Q20H IV 02/20/20 08:45 03/21/20 08:44 02/21/20 04:10 Docusate Sodium (Colace) 100 mg TWICE A DAY ORAL 02/20/20 18:00 03/21/20 17:59 02/21/20 08:51 Enalaprilat (Vasotec) 2.5 mg Q6H PRN IV SBP>160 02/19/20 15:00 03/20/20 14:59 Folic Acid (Folate) 2 mg DAILY ORAL 02/17/20 15:45 03/18/20 15:44 02/21/20 08:52 Heparin Sodium (Porcine) (Heparin 5000 units/ml) 5,000 units EVERY 12 HOURS SUBQ 02/16/20 21:00 04/01/20 20:59 02/21/20 08:53 Insulin Aspart (NovoLOG) BEFORE MEALS AND HS SUBQ 02/16/20 16:30 05/16/20 16:29 Iohexol (OMNIPAQUE-300 100ml) 100 ml NOW PRN INJ Radiology Procedure 02/19/20 11:45 02/21/20 11:44 Lactulose (Cephulac) 20 gm BID ORAL 02/21/20 09:00 03/22/20 08:59 02/21/20 08:52 Nitroglycerin (Ntg) 0.4 mg Q5M PRN SL Prn Chest Pain 02/16/20 12:15 03/17/20 12:14 Ondansetron HCl (Zofran) 4 mg Q6H PRN IVP Nausea & Vomiting 02/16/20 12:15 03/17/20 12:14 02/19/20 11:46 Pantoprazole (Protonix) 40 mg DAILY IVP 02/21/20 09:00 03/22/20 08:59 02/21/20 08:51 Polyethylene Glycol (Miralax) 17 gm DAILYPRN PRN ORAL Constipation 02/16/20 12:15 03/17/20 12:14 Potassium Chloride 100 ml @ 100 mls/hr Q1H IVPB 02/21/20 08:30 02/21/20 10:29 02/21/20 08:51 Promethazine HCl/ Codeine (Phenergan with Codeine) 5 ml Q4H PRN ORAL For Cough 02/16/20 12:15 03/17/20 12:14 Temazepam (Restoril) 15 mg HSPRN PRN ORAL Insomnia 02/16/20 12:15 02/23/20 12:14 Vancomycin HCl (Vanco pharmacy to dose) 1 ea DAILY PRN MISC Per rx protocol 02/16/20 12:15 03/17/20 12:14 Vancomycin HCl 1 gm/Dextrose 275 ml @ 183.708 mls/hr Q24H IVPB 02/18/20 11:00 02/23/20 10:59 02/20/20 12:02 Assessment/Plan Problems: (1) Sepsis (2) Acute metabolic encephalopathy (3) ATN (acute tubular necrosis) (4) Generalized weakness (5) Pneumonia (6) Diabetes mellitus Assessment/Plan wbc decreasing no more vomiting zofran prn Labetotol iv for BPpan culture iv abx iv fluids to correct the hypernatremia slidng scale swallow study when better Oscar Quezada MD Feb 21, 2020 09:46
[2020-02-21] MEDS: Cefepime HCl 1 GM in D5W 55 ML IVPB SCH (09:50)
--- NOTE | 2020-02-21 10:35 | Nephrology Progress Note ---
Assessment/Plan Problem List: (1) ATN (acute tubular necrosis) (2) Diabetes mellitus (3) Hypertension, uncontrolled (4) Anemia (5) Dehydration (6) Electrolyte imbalance Assessment Acute on chronic renal failure, dehydration Mild hypernatremia, free water deficit Anemia Hyperglycemia History of hypertension History of diabetes type 2, diabetic nephropathy Toxic metabolic encephalopathy Plan February 20: Patient lethargic. Low potassium replaced. Stable from renal standpoint of view. Continue per consultants. February 19: Patient n.p.o. for CAT scan of the abdomen. Blood pressure better controlled. Low potassium addressed with IV supplements. Continue per consultants. February 18: Blood pressure somewhat elevated, Norvasc for high blood pressure given. Labs reviewed. Renal parameters stable. Continue per consultants. Previously: Hydrate, slow, as needed Monitor renal parameters and electrolytes Keep the blood pressure and blood sugar in check Avoid nephrotoxic's Folic acid supplement p.o. Subjective ROS Limited/Unobtainable: Yes Objective Objective Last 24 Hour Vital Signs Date Time Temp Pulse Resp B/P (MAP) Pulse Ox O2 Delivery O2 Flow Rate FiO2 02/21/20 09:00 Room Air 02/21/20 08:51 67 141/77 02/21/20 08:00 96.8 67 19 141/77 (98) 97 02/21/20 04:00 97.3 58 18 159/65 (96) 97 02/21/20 00:00 97.2 62 18 131/68 (89) 97 02/20/20 21:00 Room Air 02/20/20 20:00 98.4 64 18 136/79 (98) 97 02/20/20 16:00 97.0 62 18 140/70 (93) 97 02/20/20 15:13 167/72 02/20/20 12:00 97.5 71 18 142/70 (94) 97 Intake and Output 02/20/20 02/21/20 19:00 07:00 Intake Total 50 ml 550 ml Output Total 900 ml 300 ml Balance -850 ml 250 ml IV Total 50 ml 550 ml Output Urine Total 900 ml 300 ml Laboratory Tests 02/21/20 05:55: White Blood Count 10.1, Red Blood Count 2.68L, Hemoglobin 8.6L, Hematocrit 24.5L , Mean Corpuscular Volume 91, Mean Corpuscular Hemoglobin 32.0H, Mean Corpuscular Hemoglobin Concent 35.0, Red Cell Distribution Width 11.4L, Platelet Count 388, Mean Platelet Volume 6.2L, Neutrophils (%) (Auto) 80.1H, Lymphocytes (%) (Auto) 11.2L, Monocytes (%) (Auto) 7.8, Eosinophils (%) (Auto) 0.3, Basophils (%) (Auto) 0.6, Sodium Level 137, Potassium Level 3.3L, Chloride Level 105, Carbon Dioxide Level 25, Anion Gap 7, Blood Urea Nitrogen 16, Creatinine 0.9, Estimat Glomerular Filtration Rate > 60, Glucose Level 141H, Calcium Level 8.4L, Iron Level 28L, Total Iron Binding Capacity 137L, Percent Iron Saturation 20, Unsaturated Iron Binding 109L Height (Feet): 5 Height (Inches): 6.00 Weight (Pounds): 103 General Appearance: no apparent distress, lethargic Cardiovascular: normal rate Respiratory/Chest: decreased breath sounds Abdomen: soft Objective No change Humberto Knight MD Feb 21, 2020 10:35
--- NOTE | 2020-02-21 11:28 | Infectious Diseases Prog Note ---
Assessment/Plan 74yo F with: Febrile to 100.4 Leukocytosis to 11 AMS AMOS, Cr 1.8 02/15 BCx p UA 2-4 WBC COVID screen neg MRSA nares p Resp cx p CXR: Left pleural effusion. Hazy generalized opacity probably related to such but could also indicate infiltrate Dementia SNF resident Plan: Cont cefepime & vanco IV #5/5-7 Will likely D/C abx tomorrow F/u BCx, resp cx Trend WBC Trend resp status Monitor CBC/CMP Monitor resp status Monitor temp curve and hemodynamics Thank you for this consult. [facility] will continue to follow. Subjective Allergies: Coded Allergies: NO KNOWN DRUG ALLERGIES (Verified Allergy, Unknown, 06/09/17) Afebrile Mild Leukocytosis resolved DARI Objective Last 24 Hour Vital Signs Date Time Temp Pulse Resp B/P (MAP) Pulse Ox O2 Delivery O2 Flow Rate FiO2 02/21/20 09:00 Room Air 02/21/20 08:51 67 141/77 02/21/20 08:00 96.8 67 19 141/77 (98) 97 02/21/20 04:00 97.3 58 18 159/65 (96) 97 02/21/20 00:00 97.2 62 18 131/68 (89) 97 02/20/20 21:00 Room Air 02/20/20 20:00 98.4 64 18 136/79 (98) 97 02/20/20 16:00 97.0 62 18 140/70 (93) 97 02/20/20 15:13 167/72 02/20/20 12:00 97.5 71 18 142/70 (94) 97 Height (Feet): 5 Height (Inches): 6.00 Weight (Pounds): 103 Gen: NAD on RA HEENT: NCAT, EOMI Pulm: BL chest rise Abd: Soft, ND Laboratory Tests Test 02/21/20 05:55 White Blood Count 10.1 K/UL (4.8-10.8) Red Blood Count 2.68 M/UL (4.20-5.40) L Hemoglobin 8.6 G/DL (12.0-16.0) L Hematocrit 24.5 % (37.0-47.0) L Mean Corpuscular Volume 91 FL (80-99) Mean Corpuscular Hemoglobin 32.0 PG (27.0-31.0) H Mean Corpuscular Hemoglobin Concent 35.0 G/DL (32.0-36.0) Red Cell Distribution Width 11.4 % (11.6-14.8) L Platelet Count 388 K/UL (150-450) Mean Platelet Volume 6.2 FL (6.5-10.1) L Neutrophils (%) (Auto) 80.1 % (45.0-75.0) H Lymphocytes (%) (Auto) 11.2 % (20.0-45.0) L Monocytes (%) (Auto) 7.8 % (1.0-10.0) Eosinophils (%) (Auto) 0.3 % (0.0-3.0) Basophils (%) (Auto) 0.6 % (0.0-2.0) Sodium Level 137 MMOL/L (136-145) Potassium Level 3.3 MMOL/L (3.5-5.1) L Chloride Level 105 MMOL/L (98-107) Carbon Dioxide Level 25 MMOL/L (21-32) Anion Gap 7 mmol/L (5-15) Blood Urea Nitrogen 16 mg/dL (7-18) Creatinine 0.9 MG/DL (0.55-1.30) Estimat Glomerular Filtration Rate > 60 mL/min (>60) Glucose Level 141 MG/DL (74-106) H Calcium Level 8.4 MG/DL (8.5-10.1) L Iron Level 28 ug/dL (50-175) L Total Iron Binding Capacity 137 ug/dL (250-450) L Percent Iron Saturation 20 % (15-50) Unsaturated Iron Binding 109 ug/dL (112-346) L Current Medications Medications (Trade) Dose Ordered Sig/Kannan Route PRN Reason Start Time Stop Time Status Last Admin Dose Admin Acetaminophen (Tylenol) 650 mg Q4H PRN ORAL fever 02/16/20 12:15 03/17/20 12:14 Albuterol/ Ipratropium (Albuterol/ Ipratropium) 3 ml Q4H PRN HHN Shortness of Breath 02/16/20 12:15 02/21/20 12:14 Amlodipine Besylate (Norvasc) 10 mg DAILY ORAL 02/19/20 13:00 03/20/20 12:59 02/21/20 08:51 Barium Sulfate (Readi-Cat 2) 450 ml NOW PRN ORAL Radiology Procedure 02/19/20 11:45 02/21/20 11:44 Cefepime HCl 1 gm/ Dextrose 55 ml @ 110 mls/hr Q24H IVPB 02/17/20 09:00 02/24/20 08:59 02/21/20 09:50 Clonidine HCl (Catapres Tab) 0.1 mg Q6H PRN ORAL For SBP >160 02/19/20 10:45 05/19/20 10:44 02/20/20 15:13 Dextrose (Dextrose 50%) 25 ml Q30M PRN IV Hypoglycemia 02/16/20 12:15 05/16/20 12:14 Dextrose (Dextrose 50%) 50 ml Q30M PRN IV Hypoglycemia 02/16/20 12:15 05/16/20 12:14 Dextrose/Sodium Chloride 1,000 ml @ 50 mls/hr Q20H IV 02/20/20 08:45 03/21/20 08:44 02/21/20 04:10 Docusate Sodium (Colace) 100 mg TWICE A DAY ORAL 02/20/20 18:00 03/21/20 17:59 02/21/20 08:51 Enalaprilat (Vasotec) 2.5 mg Q6H PRN IV SBP>160 02/19/20 15:00 03/20/20 14:59 Folic Acid (Folate) 2 mg DAILY ORAL 02/17/20 15:45 03/18/20 15:44 02/21/20 08:52 Heparin Sodium (Porcine) (Heparin 5000 units/ml) 5,000 units EVERY 12 HOURS SUBQ 02/16/20 21:00 04/01/20 20:59 02/21/20 08:53 Insulin Aspart (NovoLOG) BEFORE MEALS AND HS SUBQ 02/16/20 16:30 05/16/20 16:29 Iohexol (OMNIPAQUE-300 100ml) 100 ml NOW PRN INJ Radiology Procedure 02/19/20 11:45 02/21/20 11:44 Lactulose (Cephulac) 20 gm BID ORAL 02/21/20 09:00 03/22/20 08:59 02/21/20 08:52 Nitroglycerin (Ntg) 0.4 mg Q5M PRN SL Prn Chest Pain 02/16/20 12:15 03/17/20 12:14 Ondansetron HCl (Zofran) 4 mg Q6H PRN IVP Nausea & Vomiting 02/16/20 12:15 03/17/20 12:14 02/19/20 11:46 Pantoprazole (Protonix) 40 mg DAILY IVP 02/21/20 09:00 03/22/20 08:59 02/21/20 08:51 Polyethylene Glycol (Miralax) 17 gm DAILYPRN PRN ORAL Constipation 02/16/20 12:15 03/17/20 12:14 Promethazine HCl/ Codeine (Phenergan with Codeine) 5 ml Q4H PRN ORAL For Cough 02/16/20 12:15 03/17/20 12:14 Temazepam (Restoril) 15 mg HSPRN PRN ORAL Insomnia 02/16/20 12:15 02/23/20 12:14 Vancomycin HCl (Vanco pharmacy to dose) 1 ea DAILY PRN MISC Per rx protocol 02/16/20 12:15 03/17/20 12:14 Vancomycin HCl 1 gm/Dextrose 275 ml @ 183.708 mls/hr Q24H IVPB 02/18/20 11:00 02/23/20 10:59 02/20/20 12:02 Ethan Bell MD Feb 21, 2020 11:28
[2020-02-21] MEDS: Vancomycin 1gm/D5W 275ml IVPB SCH ×2 (11:35)
[2020-02-21 12:00] VITALS: BP 131/66
--- NOTE | 2020-02-21 13:00 | Internal Med Progress Note ---
Subjective Date of Service: Feb 21, 2020 Physician Name NicaRhys Attending Physician Ari Mckeon MD Current Medications Medications (Trade) Dose Ordered Sig/Kannan Route PRN Reason Start Time Stop Time Status Last Admin Dose Admin Acetaminophen (Tylenol) 650 mg Q4H PRN ORAL fever 02/16/20 12:15 03/17/20 12:14 Amlodipine Besylate (Norvasc) 10 mg DAILY ORAL 02/19/20 13:00 03/20/20 12:59 02/21/20 08:51 Cefepime HCl 1 gm/ Dextrose 55 ml @ 110 mls/hr Q24H IVPB 02/17/20 09:00 02/24/20 08:59 02/21/20 09:50 Clonidine HCl (Catapres Tab) 0.1 mg Q6H PRN ORAL For SBP >160 02/19/20 10:45 05/19/20 10:44 02/20/20 15:13 Dextrose (Dextrose 50%) 25 ml Q30M PRN IV Hypoglycemia 02/16/20 12:15 05/16/20 12:14 Dextrose (Dextrose 50%) 50 ml Q30M PRN IV Hypoglycemia 02/16/20 12:15 05/16/20 12:14 Dextrose/Sodium Chloride 1,000 ml @ 50 mls/hr Q20H IV 02/20/20 08:45 03/21/20 08:44 02/21/20 04:10 Docusate Sodium (Colace) 100 mg TWICE A DAY ORAL 02/20/20 18:00 03/21/20 17:59 02/21/20 08:51 Enalaprilat (Vasotec) 2.5 mg Q6H PRN IV SBP>160 02/19/20 15:00 03/20/20 14:59 Folic Acid (Folate) 2 mg DAILY ORAL 02/17/20 15:45 03/18/20 15:44 02/21/20 08:52 Heparin Sodium (Porcine) (Heparin 5000 units/ml) 5,000 units EVERY 12 HOURS SUBQ 02/16/20 21:00 04/01/20 20:59 02/21/20 08:53 Insulin Aspart (NovoLOG) BEFORE MEALS AND HS SUBQ 02/16/20 16:30 05/16/20 16:29 Lactulose (Cephulac) 20 gm BID ORAL 02/21/20 09:00 03/22/20 08:59 02/21/20 08:52 Nitroglycerin (Ntg) 0.4 mg Q5M PRN SL Prn Chest Pain 02/16/20 12:15 03/17/20 12:14 Ondansetron HCl (Zofran) 4 mg Q6H PRN IVP Nausea & Vomiting 02/16/20 12:15 03/17/20 12:14 02/19/20 11:46 Pantoprazole (Protonix) 40 mg DAILY IVP 02/21/20 09:00 03/22/20 08:59 02/21/20 08:51 Polyethylene Glycol (Miralax) 17 gm DAILYPRN PRN ORAL Constipation 02/16/20 12:15 03/17/20 12:14 Promethazine HCl/ Codeine (Phenergan with Codeine) 5 ml Q4H PRN ORAL For Cough 02/16/20 12:15 03/17/20 12:14 Temazepam (Restoril) 15 mg HSPRN PRN ORAL Insomnia 02/16/20 12:15 02/23/20 12:14 Vancomycin HCl ([facility] pharmacy to dose) 1 ea DAILY PRN MISC Per rx protocol 02/16/20 12:15 03/17/20 12:14 Vancomycin HCl 1 gm/Dextrose 275 ml @ 183.708 mls/hr Q24H IVPB 02/18/20 11:00 02/23/20 10:59 02/21/20 11:35 Allergies: Coded Allergies: NO KNOWN DRUG ALLERGIES (Verified Allergy, Unknown, 06/09/17) ROS Limited/Unobtainable: Yes Subjective 74 YO F admitted with gen weakness. Now LLL pneumonia/pleural effusion. Cover for Int [facility]-Dr Mckeon Objective Last Vital Signs Date Time Temp Pulse Resp B/P (MAP) Pulse Ox O2 Delivery O2 Flow Rate FiO2 02/21/20 12:00 98.7 72 19 131/66 (87) 97 02/21/20 09:00 Room Air 02/20/20 09:00 2.0 Laboratory Tests Test 02/21/20 05:55 White Blood Count 10.1 K/UL (4.8-10.8) Red Blood Count 2.68 M/UL (4.20-5.40) L Hemoglobin 8.6 G/DL (12.0-16.0) L Hematocrit 24.5 % (37.0-47.0) L Mean Corpuscular Volume 91 FL (80-99) Mean Corpuscular Hemoglobin 32.0 PG (27.0-31.0) H Mean Corpuscular Hemoglobin Concent 35.0 G/DL (32.0-36.0) Red Cell Distribution Width 11.4 % (11.6-14.8) L Platelet Count 388 K/UL (150-450) Mean Platelet Volume 6.2 FL (6.5-10.1) L Neutrophils (%) (Auto) 80.1 % (45.0-75.0) H Lymphocytes (%) (Auto) 11.2 % (20.0-45.0) L Monocytes (%) (Auto) 7.8 % (1.0-10.0) Eosinophils (%) (Auto) 0.3 % (0.0-3.0) Basophils (%) (Auto) 0.6 % (0.0-2.0) Sodium Level 137 MMOL/L (136-145) Potassium Level 3.3 MMOL/L (3.5-5.1) L Chloride Level 105 MMOL/L (98-107) Carbon Dioxide Level 25 MMOL/L (21-32) Anion Gap 7 mmol/L (5-15) Blood Urea Nitrogen 16 mg/dL (7-18) Creatinine 0.9 MG/DL (0.55-1.30) Estimat Glomerular Filtration Rate > 60 mL/min (>60) Glucose Level 141 MG/DL (74-106) H Calcium Level 8.4 MG/DL (8.5-10.1) L Iron Level 28 ug/dL (50-175) L Total Iron Binding Capacity 137 ug/dL (250-450) L Percent Iron Saturation 20 % (15-50) Unsaturated Iron Binding 109 ug/dL (112-346) L Intake and Output 02/20/20 02/21/20 18:59 06:59 Intake Total 600 ml Output Total 900 ml 300 ml Balance -900 ml 300 ml IV Total 600 ml Output Urine Total 900 ml 300 ml Objective PHYSICAL EXAMINATION: GENERAL: The patient awake, responsive, and in no acute distress, however, looking chronically ill-appearing patient. HEAD AND NECK: Pupils are equal and reactive to light. Extraocular movements are intact. Neck was supple. No JVD. LUNGS: Good air entry. No wheezing or rales. Poor inspiratory effort. HEART: S1, S2. Regular rhythm. No murmur or gallops. ABDOMEN: Soft, nondistended, and nontender. Positive bowel sounds. EXTREMITIES: No cyanosis, clubbing or edema. NEUROLOGIC: Cranial nerves II through XII grossly intact. The patient is moving all the extremities spontaneously. RECTAL: Refused and deferred. GENITOURINARY: Refused and deferred. PSYCHIATRIC: Mood and affect is intact. Assessment/Plan Assessment/Plan ASSESSMENT: 1. Generalized weakness 2. Acute kidney injury with ATN. 3. Hypernatremia. 4. Dehydration and hypovolemia. 5. Anemia, most likely anemia of chronic disease. 6. Hypertension. 7. Dyslipidemia. 8. Diabetes type 2. 9. Acute metabolic encephalopathy, most likely secondary to infection as well as dehydration. 10. LLL pneumonia 11. Left pleural effusion PLAN: 1. Med/surg 2. antibiotics = vancomycin and cefepime 3. Code status is Full Code. 4. DVT prophylaxis heparin subcutaneous. 5. Dr. Quezada = Pulmonary/Critical Care Rhys Yousif MD Feb 21, 2020 13:00
[2020-02-21 16:00] VITALS: BP 121/74
[2020-02-21 20:00] VITALS: BP 147/58
[2020-02-22] VITALS (13 sets, daily range): BP systolic 119–152; BP diastolic 51–78
[2020-02-22] MEDS: D5 1/2NS 1,000 ML IV SCH ×2 (00:38→20:15)
[2020-02-22] MEDS: NovoLOG Insulin Flexpen SUBQ SCH ×4 (05:34→20:21)
[2020-02-22 07:02] LABS: BASOPHILS % (AUTO) 0.3 % (0.0-2.0); EOSINOPHILS % (AUTO) 0.8 % (0.0-3.0); HEMATOCRIT 26.3 % (37.0-47.0); HEMOGLOBIN 9.1 G/DL (12.0-16.0); LYMPHOCYTES % (AUTO) 13.8 % (20.0-45.0); MEAN CORPUSCULAR VOLUME 92 FL (80-99); MONOCYTES % (AUTO) 5.9 % (1.0-10.0); NEUTROPHILS % (AUTO) 79.2 % (45.0-75.0); PLATELET COUNT 435 K/UL (150-450); RED BLOOD COUNT 2.87 M/UL (4.20-5.40); RED CELL DISTRIBUTION WIDTH 11.6 % (11.6-14.8); WHITE BLOOD COUNT 9.5 K/UL (4.8-10.8)
[2020-02-22 07:06] LABS: PHOSPHORUS 2.2 MG/DL (2.5-4.9)
[2020-02-22 07:28] LABS: ALBUMIN 1.8 G/DL (3.4-5.0); ALBUMIN/GLOBULIN RATIO 0.5 (1.0-2.7); BILIRUBIN,TOTAL 0.3 MG/DL (0.2-1.0); CALCIUM 8.1 MG/DL (8.5-10.1); POTASSIUM 3.3 MMOL/L (3.5-5.1)
[2020-02-22] MEDS: Docusate 100mg cap ORAL SCH ×2 (08:42→17:39)
[2020-02-22] MEDS: Pantoprazole Inj IVP SCH (08:42)
[2020-02-22] MEDS: Lactulose 20gm/30ml UDC ORAL SCH ×2 (08:42→17:39)
[2020-02-22] MEDS: Cefepime HCl 1 GM in D5W 55 ML IVPB SCH (08:42)
[2020-02-22] MEDS: Heparin 5000 units/ml inj SUBQ SCH ×3 (08:43→21:00)
--- NOTE | 2020-02-22 09:53 | Nephrology Progress Note ---
Assessment/Plan Problem List: (1) ATN (acute tubular necrosis) (2) Diabetes mellitus (3) Hypertension, uncontrolled (4) Anemia (5) Dehydration (6) Electrolyte imbalance Assessment Acute on chronic renal failure, dehydration Mild hypernatremia, free water deficit Anemia Hyperglycemia History of hypertension History of diabetes type 2, diabetic nephropathy Toxic metabolic encephalopathy Plan February 21: Labs reviewed. Abnormal electrolyte addressed. Continue per consultants. February 20: Patient lethargic. Low potassium replaced. Stable from renal standpoint of view. Continue per consultants. February 19: Patient n.p.o. for CAT scan of the abdomen. Blood pressure better controlled. Low potassium addressed with IV supplements. Continue per consultants. February 18: Blood pressure somewhat elevated, Norvasc for high blood pressure given. Labs reviewed. Renal parameters stable. Continue per consultants. Previously: Hydrate, slow, as needed Monitor renal parameters and electrolytes Keep the blood pressure and blood sugar in check Avoid nephrotoxic's Folic acid supplement p.o. Subjective ROS Limited/Unobtainable: No Constitutional: Reports: malaise Objective Objective Last 24 Hour Vital Signs Date Time Temp Pulse Resp B/P (MAP) Pulse Ox O2 Delivery O2 Flow Rate FiO2 02/22/20 08:43 58 127/78 02/22/20 08:18 Room Air 02/22/20 07:59 98.1 58 20 127/78 (94) 100 02/22/20 04:00 97.6 58 18 133/55 (81) 97 02/22/20 00:00 97.8 55 18 135/51 (79) 97 02/21/20 20:45 Room Air 02/21/20 20:00 98.9 60 18 147/58 (87) 97 02/21/20 16:00 96.7 71 19 121/74 (90) 97 02/21/20 12:00 98.7 72 19 131/66 (87) 97 Intake and Output 02/21/20 02/22/20 19:00 07:00 Intake Total 50 ml 500 ml Output Total 300 ml 600 ml Balance -250 ml -100 ml IV Total 50 ml 500 ml Output Urine Total 300 ml 600 ml Laboratory Tests 02/21/20 11:37: POC Whole Blood Glucose 127H 02/21/20 16:12: POC Whole Blood Glucose 112H 02/21/20 20:08: POC Whole Blood Glucose 104 02/22/20 05:32: White Blood Count 9.5, Red Blood Count 2.87L, Hemoglobin 9.1L, Hematocrit 26.3L, Mean Corpuscular Volume 92, Mean Corpuscular Hemoglobin 31.6H, Mean Corpuscular Hemoglobin Concent 34.5, Red Cell Distribution Width 11.6, Platelet Count 435, Mean Platelet Volume 6.1L, Neutrophils (%) (Auto) 79.2H, Lymphocytes (%) (Auto) 13.8L, Monocytes (%) (Auto) 5.9, Eosinophils (%) (Auto) 0.8, Basophils (%) (Auto) 0.3, Sodium Level 134L, Potassium Level 3.3L, Chloride Level 103, Carbon Dioxide Level 25, Anion Gap 6, Blood Urea Nitrogen 12, Creatinine 1.0, Estimat Glomerular Filtration Rate 53.9, Glucose Level 119H, Calcium Level 8.1L, Phosphorus Level 2.2L, Magnesium Level 1.7L, Total Bilirubin 0.3, Aspartate Amino Transf (AST/SGOT) 17, Alanine Aminotransferase (ALT/SGPT) 10L, Alkaline Phosphatase 85, C-Reactive Protein, Quantitative 5.1H, Total Protein 5.6L, Albumin 1.8L, Globulin 3.8, Albumin/Globulin Ratio 0.5L 02/22/20 05:33: POC Whole Blood Glucose 117H Height (Feet): 5 Height (Inches): 5.00 Weight (Pounds): 109 General Appearance: no apparent distress, lethargic Cardiovascular: bradycardia Respiratory/Chest: decreased breath sounds Objective No change Humberto Knight MD Feb 22, 2020 09:53
--- NOTE | 2020-02-22 10:28 | Infectious Diseases Prog Note ---
Assessment/Plan 74yo F with: Febrile to 100.4 Leukocytosis to 11 AMS AMOS, Cr 1.8 02/15 BCx p UA 2-4 WBC COVID screen neg MRSA nares p Resp cx p CXR: Left pleural effusion. Hazy generalized opacity probably related to such but could also indicate infiltrate Dementia SNF resident Plan: Monitor off antibiotics - 02/22/20 SP cefepime & vanco IV #6 F/u BCx, resp cx Trend WBC Trend resp status Monitor CBC/CMP Monitor resp status Monitor temp curve and hemodynamics Thank you for this consult. [facility] will continue to follow. Subjective Allergies: Coded Allergies: NO KNOWN DRUG ALLERGIES (Verified Allergy, Unknown, 06/09/17) Afebrile No Leukocytosis Satting well Objective Last 24 Hour Vital Signs Date Time Temp Pulse Resp B/P (MAP) Pulse Ox O2 Delivery O2 Flow Rate FiO2 02/22/20 08:43 58 127/78 02/22/20 08:18 Room Air 02/22/20 07:59 98.1 58 20 127/78 (94) 100 02/22/20 04:00 97.6 58 18 133/55 (81) 97 02/22/20 00:00 97.8 55 18 135/51 (79) 97 02/21/20 20:45 Room Air 02/21/20 20:00 98.9 60 18 147/58 (87) 97 02/21/20 16:00 96.7 71 19 121/74 (90) 97 02/21/20 12:00 98.7 72 19 131/66 (87) 97 Height (Feet): 5 Height (Inches): 5.00 Weight (Pounds): 109 Gen: NAD HEENT: NCAT, EOMI Pulm: BL chest rise Abd: Soft, ND Laboratory Tests Test 02/21/20 11:37 02/21/20 16:12 02/21/20 20:08 02/22/20 05:32 POC Whole Blood Glucose 127 MG/DL (74-106) H 112 MG/DL (74-106) H 104 MG/DL (74-106) White Blood Count 9.5 K/UL (4.8-10.8) Red Blood Count 2.87 M/UL (4.20-5.40) L Hemoglobin 9.1 G/DL (12.0-16.0) L Hematocrit 26.3 % (37.0-47.0) L Mean Corpuscular Volume 92 FL (80-99) Mean Corpuscular Hemoglobin 31.6 PG (27.0-31.0) H Mean Corpuscular Hemoglobin Concent 34.5 G/DL (32.0-36.0) Red Cell Distribution Width 11.6 % (11.6-14.8) Platelet Count 435 K/UL (150-450) Mean Platelet Volume 6.1 FL (6.5-10.1) L Neutrophils (%) (Auto) 79.2 % (45.0-75.0) H Lymphocytes (%) (Auto) 13.8 % (20.0-45.0) L Monocytes (%) (Auto) 5.9 % (1.0-10.0) Eosinophils (%) (Auto) 0.8 % (0.0-3.0) Basophils (%) (Auto) 0.3 % (0.0-2.0) Sodium Level 134 MMOL/L (136-145) L Potassium Level 3.3 MMOL/L (3.5-5.1) L Chloride Level 103 MMOL/L (98-107) Carbon Dioxide Level 25 MMOL/L (21-32) Anion Gap 6 mmol/L (5-15) Blood Urea Nitrogen 12 mg/dL (7-18) Creatinine 1.0 MG/DL (0.55-1.30) Estimat Glomerular Filtration Rate 53.9 mL/min (>60) Glucose Level 119 MG/DL (74-106) H Calcium Level 8.1 MG/DL (8.5-10.1) L Phosphorus Level 2.2 MG/DL (2.5-4.9) L Magnesium Level 1.7 MG/DL (1.8-2.4) L Total Bilirubin 0.3 MG/DL (0.2-1.0) Aspartate Amino Transf (AST/SGOT) 17 U/L (15-37) Alanine Aminotransferase (ALT/SGPT) 10 U/L (12-78) L Alkaline Phosphatase 85 U/L (46-116) C-Reactive Protein, Quantitative 5.1 mg/dL (0.00-0.90) H Total Protein 5.6 G/DL (6.4-8.2) L Albumin 1.8 G/DL (3.4-5.0) L Globulin 3.8 g/dL Albumin/Globulin Ratio 0.5 (1.0-2.7) L Test 02/22/20 05:33 POC Whole Blood Glucose 117 MG/DL (74-106) H Current Medications Medications (Trade) Dose Ordered Sig/Kannan Route PRN Reason Start Time Stop Time Status Last Admin Dose Admin Acetaminophen (Tylenol) 650 mg Q4H PRN ORAL fever 02/16/20 12:15 03/17/20 12:14 Amlodipine Besylate (Norvasc) 10 mg DAILY ORAL 02/19/20 13:00 03/20/20 12:59 02/21/20 08:51 Cefepime HCl 1 gm/ Dextrose 55 ml @ 110 mls/hr Q24H IVPB 02/17/20 09:00 02/24/20 08:59 02/22/20 08:42 Clonidine HCl (Catapres Tab) 0.1 mg Q6H PRN ORAL For SBP >160 02/19/20 10:45 05/19/20 10:44 02/20/20 15:13 Dextrose (Dextrose 50%) 25 ml Q30M PRN IV Hypoglycemia 02/16/20 12:15 05/16/20 12:14 Dextrose (Dextrose 50%) 50 ml Q30M PRN IV Hypoglycemia 02/16/20 12:15 05/16/20 12:14 Dextrose/Sodium Chloride 1,000 ml @ 50 mls/hr Q20H IV 02/20/20 08:45 03/21/20 08:44 02/22/20 00:38 Docusate Sodium (Colace) 100 mg TWICE A DAY ORAL 02/20/20 18:00 03/21/20 17:59 02/21/20 17:58 Enalaprilat (Vasotec) 2.5 mg Q6H PRN IV SBP>160 02/19/20 15:00 03/20/20 14:59 Folic Acid (Folate) 2 mg DAILY ORAL 02/17/20 15:45 03/18/20 15:44 02/21/20 08:52 Heparin Sodium (Porcine) (Heparin 5000 units/ml) 5,000 units EVERY 12 HOURS SUBQ 02/16/20 21:00 04/01/20 20:59 02/21/20 20:13 Insulin Aspart (NovoLOG) BEFORE MEALS AND HS SUBQ 02/16/20 16:30 05/16/20 16:29 Lactulose (Cephulac) 20 gm BID ORAL 02/21/20 09:00 03/22/20 08:59 02/21/20 17:58 Magnesium Sulfate 100 ml @ 100 mls/hr Q1H IVPB 02/22/20 10:00 02/22/20 11:59 Nitroglycerin (Ntg) 0.4 mg Q5M PRN SL Prn Chest Pain 02/16/20 12:15 03/17/20 12:14 Ondansetron HCl (Zofran) 4 mg Q6H PRN IVP Nausea & Vomiting 02/16/20 12:15 03/17/20 12:14 02/19/20 11:46 Pantoprazole (Protonix) 40 mg DAILY IVP 02/21/20 09:00 03/22/20 08:59 02/22/20 08:42 Polyethylene Glycol (Miralax) 17 gm DAILYPRN PRN ORAL Constipation 02/16/20 12:15 03/17/20 12:14 Potassium Phosphate 250 ml @ 62.5 mls/hr Q4H IVPB 02/22/20 11:00 02/22/20 18:59 Promethazine HCl/ Codeine (Phenergan with Codeine) 5 ml Q4H PRN ORAL For Cough 02/16/20 12:15 03/17/20 12:14 Temazepam (Restoril) 15 mg HSPRN PRN ORAL Insomnia 02/16/20 12:15 02/23/20 12:14 [facility]a DA[facility] PRN MISC Per rx protocol 02/16/20 12:15 03/17/20 12:14 Vancomycin HCl 1 gm/Dextrose 275 ml @ 183.708 mls/hr Q24H IVPB 02/18/20 11:00 02/23/20 10:59 02/21/20 11:35 Ethan Bell MD Feb 22, 2020 10:28
[2020-02-22] MEDS ORDERED: NS 500ML IVPB ONE (11:00)
--- NOTE | 2020-02-22 11:19 | Pre-Procedure Note/Attestation ---
Pre-Procedure Note/Attestation Complete Prior to Procedure Planned Procedure: not applicable Procedure Narrative: egd Indications for Procedure Pre-Operative Diagnosis: esophagtiis Attestation I attest that I discussed the nature of the procedure; its benefits; risks and complications; and alternatives (and the risks and benefits of such alternatives), prior to the procedure, with the patient (or the patient's legal support representative). I attest that, if there was a reasonable possibility of needing a blood transfusion, the patient (or the patient's legal support representative) was given the [facility] standardized written summary, pursuant to the [place] Blood Safety Act ([place] Health and Safety Code # 1645, as amended). I attest that I re-evaluated the patient just prior to the surgery and that there has been no change in the patient's H&P, except as documented below: Ang Snowden MD Feb 22, 2020 11:19
[2020-02-22] MEDS ORDERED: Lidocaine 1% MPF 10mg/ml 5ml ONE (11:30)
[2020-02-22] MEDS ORDERED: LR 1000ml ONE (11:30)
--- NOTE | 2020-02-22 11:32 | Endoscopy Procedure Note ---
Endoscopy Procedure Note General Indication for Procedure: anemia Procedures Performed: EGD Operative Findings/Diagnosis: esophagitis Specimen: yes Pt Tolerated Procedure Well: Yes Estimated Blood Loss: none Anesthesia Anesthesiologist: eladio Anesthesia: MAC Inserted Devices Implant(s) used?: No GI Core Measures 50 yrs or older w/o bx or poly: Not Applicable 10yrs. F/U recommended: Not Applicable Ang Snowden MD Feb 22, 2020 11:32
--- NOTE | 2020-02-22 11:42 | Immediate Post-Op Evaluation ---
Immediate Post-Op Evalulation Immediate Post-Op Evalulation Procedure: EGD Date of Evaluation: Feb 22, 2020 Time of Evaluation: 11:41 IV Fluids: 100 Blood Pressure Systolic: 125 Blood Pressure Diastolic: 70 Pulse Rate: 94 Respiratory Rate: 14 O2 Sat by Pulse Oximetry: 99 Temperature (Fahrenheit): 97.7 Nausea: No Vomiting: No Patient Status: awake, reacts, patent Hydration Status: adequate Drug: none TrevriClotilde calderon CRNA Feb 22, 2020 11:42
--- NOTE | 2020-02-22 11:43 | Anethesia Preoperative Eval ---
Anesthesia Pre-op PMH/ROS General Date of Evaluation: Feb 22, 2020 Time of Evaluation: 11:20 Anesthesiologist: hi ASA Score: ASA 3 Mallampati Score Class I : Soft palate, uvula, fauces, pillars visible Class II: Soft palate, uvula, fauces visible Class III: Soft palate, base of uvula visible Class IV: Only hard plate visible Mallampati Classification: Class III Surgeon: Sp Diagnosis: anemia Surgical Procedure: EGD Social History: alcohol use Family History: no anesthesia problems Allergies: Coded Allergies: NO KNOWN DRUG ALLERGIES (Verified Allergy, Unknown, 06/09/17) Medications: see eMAR Patient NPO?: Yes NPO Date: Feb 22, 2020 NPO Time: 00:01 Past Medical History Cardiovascular: Reports: HTN Pulmonary: Denies: asthma, COPD, STEPAN, other Gastrointestinal/Genitourinary: Reports: GERD; Denies: CRI, ESRD, other Neurologic/Psychiatric: Reports: dementia; Denies: CVA, depression/anxiety, TIA, other Endocrine: Reports: DM HEENT: Denies: cataract (L), cataract (R), glaucoma, [place] (L), [place] (R), other Hematology/Immune: Reports: anemia; Denies: DVT, bleeding disorder, other Musculoskeletal/Integumentary: Denies: OA, RA, DJD, DDD, edema, other PSxH Narrative: unknown Anesthesia Pre-op Phys. Exam Physician Exam Last Vital Signs Date Time Temp Pulse Resp B/P (MAP) Pulse Ox O2 Delivery O2 Flow Rate FiO2 02/22/20 08:43 58 127/78 02/22/20 08:18 Room Air 02/22/20 07:59 98.1 20 100 02/20/20 09:00 2.0 Constitutional: NAD Neurologic: other - confused Cardiovascular: RRR Respiratory: CTA Gastrointestinal: S/NT/ND Airway Exam Mallampati Classification 2 Mallampati Score: Class III MO: limited ROM: limited Dentures: no upper, no lower Anesthesia Pre-op A/P Labs Hematology Test 02/22/20 05:32 White Blood Count 9.5 K/UL (4.8-10.8) Red Blood Count 2.87 M/UL (4.20-5.40) L Hemoglobin 9.1 G/DL (12.0-16.0) L Hematocrit 26.3 % (37.0-47.0) L Mean Corpuscular Volume 92 FL (80-99) Mean Corpuscular Hemoglobin 31.6 PG (27.0-31.0) H Mean Corpuscular Hemoglobin Concent 34.5 G/DL (32.0-36.0) Red Cell Distribution Width 11.6 % (11.6-14.8) Platelet Count 435 K/UL (150-450) Mean Platelet Volume 6.1 FL (6.5-10.1) L Neutrophils (%) (Auto) 79.2 % (45.0-75.0) H Lymphocytes (%) (Auto) 13.8 % (20.0-45.0) L Monocytes (%) (Auto) 5.9 % (1.0-10.0) Eosinophils (%) (Auto) 0.8 % (0.0-3.0) Basophils (%) (Auto) 0.3 % (0.0-2.0) Chemistry Test 02/21/20 16:12 02/21/20 20:08 02/22/20 05:32 02/22/20 05:33 POC Whole Blood Glucose 112 MG/DL (74-106) H 104 MG/DL (74-106) 117 MG/DL (74-106) H Sodium Level 134 MMOL/L (136-145) L Potassium Level 3.3 MMOL/L (3.5-5.1) L Chloride Level 103 MMOL/L (98-107) Carbon Dioxide Level 25 MMOL/L (21-32) Anion Gap 6 mmol/L (5-15) Blood Urea Nitrogen 12 mg/dL (7-18) Creatinine 1.0 MG/DL (0.55-1.30) Estimat Glomerular Filtration Rate 53.9 mL/min (>60) Glucose Level 119 MG/DL (74-106) H Calcium Level 8.1 MG/DL (8.5-10.1) L Phosphorus Level 2.2 MG/DL (2.5-4.9) L Magnesium Level 1.7 MG/DL (1.8-2.4) L Total Bilirubin 0.3 MG/DL (0.2-1.0) Aspartate Amino Transf (AST/SGOT) 17 U/L (15-37) Alanine Aminotransferase (ALT/SGPT) 10 U/L (12-78) L Alkaline Phosphatase 85 U/L (46-116) C-Reactive Protein, Quantitative 5.1 mg/dL (0.00-0.90) H Total Protein 5.6 G/DL (6.4-8.2) L Albumin 1.8 G/DL (3.4-5.0) L Globulin 3.8 g/dL Albumin/Globulin Ratio 0.5 (1.0-2.7) L Studies Pre-op Studies: EKG - SR Risk Assessment & Plan Assessment: covid neg Plan: mac Status Change Before Surgery: No Pre-Antibiotics Drug: none Clotilde Hair CRNA Feb 22, 2020 11:43
--- NOTE | 2020-02-22 12:39 | 48 Hour Post Anesthesia Eval ---
Post Anesthesia Evaluation Procedure: EGD Date of Evaluation: Feb 22, 2020 Time of Evaluation: 12:38 Blood Pressure Systolic: 145 0: 55 Pulse Rate: 50 Respiratory Rate: 14 O2 Sat by Pulse Oximetry: 98 Airway: patent Nausea: No Vomiting: No Hydration Status: adequate Mental Status/LOC: patient returned to baseline Follow-up Care/Observations: na Post-Anesthesia Complications: none Follow-up care needed: N/A Clotilde Hair CRNA Feb 22, 2020 12:39
[2020-02-22] MEDS: Potassium Phosphate 15mm/250ml 250 ML IVPB SCH ×2 (13:05→16:32)
[2020-02-22] MEDS: Sucralfate 1gm tab ORAL SCH ×4 (13:13→21:00)
--- NOTE | 2020-02-22 14:30 | Procedure Note ---
DATE OF PROCEDURE: 02/22/2020 SURGEON: Ang Snowden MD. PROCEDURE: Upper endoscopy with biopsy. ANESTHESIA: Per WHEEL AND AXLE INSPECTOR, Clotilde Tarrillion. INSTRUMENT: Olympus adult flexible upper endoscope. INDICATION: Anemia. REASON FOR PROCEDURE: The procedure, risks, benefits, and possible consequences, including hemorrhage, aspiration, perforation and infection, and alternative treatments, were explained to the patient/legal guardian by Dr. Ang Snowden and the patient/legal guardian understood and accepted these risks. DESCRIPTION OF PROCEDURE: After informed consent was obtained and the patient was adequately sedated, Olympus upper endoscope was advanced from mouth into the second portion of the duodenum and retroflexion was performed in the stomach. The patient had evidence of severe erosive distal esophagitis, most probably the source of anemia and bleeding. the passing of the scope caused irritation and bleeding. The patient also had evidence of atrophic gastritis. Random biopsy from antrum was obtained to rule out H. pylori infection. The rest of the upper endoscopic examination grossly within normal limits. At this time, the upper endoscope was removed. SUMMARY OF FINDINGS: 1. Severe erosive distal esophagitis. 2. Atrophic gastritis. 3. Hiatal hernia. RECOMMENDATIONS: Reflux measures. Continue on Protonix. Add Carafate. Monitor hemoglobin and hematocrit. Transfuse as needed. Follow up biopsy results. Ang Snowden M.D. DR: RODNEY JOB#: [id number] CC:
--- NOTE | 2020-02-22 17:31 | Cardiology Report ---
APPROVED REPORT EKG Measurement Heart [id number] [id number] <Conclusion> Sinus bradycardia Otherwise normal ECG
--- NOTE | 2020-02-22 17:37 | Internal Med Progress Note ---
Subjective Date of Service: Feb 22, 2020 Physician Name Rhys Yousif Attending Physician Ari Mckeon MD Current Medications Medications (Trade) Dose Ordered Sig/Kannan Route PRN Reason Start Time Stop Time Status Last Admin Dose Admin Acetaminophen (Tylenol) 650 mg Q4H PRN ORAL fever 02/16/20 12:15 03/17/20 12:14 Amlodipine Besylate (Norvasc) 10 mg DAILY ORAL 02/19/20 13:00 03/20/20 12:59 02/21/20 08:51 Clonidine HCl (Catapres Tab) 0.1 mg Q6H PRN ORAL For SBP >160 02/19/20 10:45 05/19/20 10:44 02/20/20 15:13 Dextrose (Dextrose 50%) 25 ml Q30M PRN IV Hypoglycemia 02/16/20 12:15 05/16/20 12:14 Dextrose (Dextrose 50%) 50 ml Q30M PRN IV Hypoglycemia 02/16/20 12:15 05/16/20 12:14 Dextrose/Sodium Chloride 1,000 ml @ 50 mls/hr Q20H IV 02/20/20 08:45 03/21/20 08:44 02/22/20 00:38 Docusate Sodium (Colace) 100 mg TWICE A DAY ORAL 02/20/20 18:00 03/21/20 17:59 02/21/20 17:58 Enalaprilat (Vasotec) 2.5 mg Q6H PRN IV SBP>160 02/19/20 15:00 03/20/20 14:59 Folic Acid (Folate) 2 mg DAILY ORAL 02/17/20 15:45 03/18/20 15:44 02/21/20 08:52 Heparin Sodium (Porcine) (Heparin 5000 units/ml) 5,000 units EVERY 12 HOURS SUBQ 02/16/20 21:00 04/01/20 20:59 02/21/20 20:13 Insulin Aspart (NovoLOG) BEFORE MEALS AND HS SUBQ 02/16/20 16:30 05/16/20 16:29 Lactulose (Cephulac) 20 gm BID ORAL 02/21/20 09:00 03/22/20 08:59 02/21/20 17:58 Magnesium Sulfate 100 ml @ 100 mls/hr Q1H IVPB 02/22/20 18:00 02/22/20 19:59 Nitroglycerin (Ntg) 0.4 mg Q5M PRN SL Prn Chest Pain 02/16/20 12:15 03/17/20 12:14 Ondansetron HCl (Zofran) 4 mg Q6H PRN IVP Nausea & Vomiting 02/16/20 12:15 03/17/20 12:14 02/19/20 11:46 Pantoprazole (Protonix) 40 mg DAILY IVP 02/21/20 09:00 03/22/20 08:59 02/22/20 08:42 Polyethylene Glycol (Miralax) 17 gm DAILYPRN PRN ORAL Constipation 02/16/20 12:15 03/17/20 12:14 Potassium Phosphate 250 ml @ 62.5 mls/hr Q4H IVPB 02/22/20 11:00 02/22/20 18:59 02/22/20 16:32 Promethazine HCl/ Codeine (Phenergan with Codeine) 5 ml Q4H PRN ORAL For Cough 02/16/20 12:15 03/17/20 12:14 Sucralfate (Carafate) 1 gm FOUR TIMES A DAY ORAL 02/22/20 13:00 05/22/20 12:59 02/22/20 13:13 Temazepam (Restoril) 15 mg HSPRN PRN ORAL Insomnia 02/16/20 12:15 02/23/20 12:14 Allergies: Coded Allergies: NO KNOWN DRUG ALLERGIES (Verified Allergy, Unknown, 06/09/17) ROS Limited/Unobtainable: Yes Subjective 74 YO F admitted with gen weakness. Now LLL pneumonia/pleural effusion. Cover for Int Med-Dr Mckeon. S/P endoscopy 02/22/20 Objective Last Vital Signs Date Time Temp Pulse Resp B/P (MAP) Pulse Ox O2 Delivery O2 Flow Rate FiO2 02/22/20 16:00 97.7 59 19 119/72 (88) 95 02/22/20 12:25 Room Air 02/22/20 11:50 3 Laboratory Tests Test 02/21/20 20:08 02/22/20 05:32 02/22/20 05:33 02/22/20 12:56 POC Whole Blood Glucose 104 MG/DL (74-106) 117 MG/DL (74-106) H 98 MG/DL (74-106) White Blood Count 9.5 K/UL (4.8-10.8) Red Blood Count 2.87 M/UL (4.20-5.40) L Hemoglobin 9.1 G/DL (12.0-16.0) L Hematocrit 26.3 % (37.0-47.0) L Mean Corpuscular Volume 92 FL (80-99) Mean Corpuscular Hemoglobin 31.6 PG (27.0-31.0) H Mean Corpuscular Hemoglobin Concent 34.5 G/DL (32.0-36.0) Red Cell Distribution Width 11.6 % (11.6-14.8) Platelet Count 435 K/UL (150-450) Mean Platelet Volume 6.1 FL (6.5-10.1) L Neutrophils (%) (Auto) 79.2 % (45.0-75.0) H Lymphocytes (%) (Auto) 13.8 % (20.0-45.0) L Monocytes (%) (Auto) 5.9 % (1.0-10.0) Eosinophils (%) (Auto) 0.8 % (0.0-3.0) Basophils (%) (Auto) 0.3 % (0.0-2.0) Sodium Level 134 MMOL/L (136-145) L Potassium Level 3.3 MMOL/L (3.5-5.1) L Chloride Level 103 MMOL/L (98-107) Carbon Dioxide Level 25 MMOL/L (21-32) Anion Gap 6 mmol/L (5-15) Blood Urea Nitrogen 12 mg/dL (7-18) Creatinine 1.0 MG/DL (0.55-1.30) Estimat Glomerular Filtration Rate 53.9 mL/min (>60) Glucose Level 119 MG/DL (74-106) H Calcium Level 8.1 MG/DL (8.5-10.1) L Phosphorus Level 2.2 MG/DL (2.5-4.9) L Magnesium Level 1.7 MG/DL (1.8-2.4) L Total Bilirubin 0.3 MG/DL (0.2-1.0) Aspartate Amino Transf (AST/SGOT) 17 U/L (15-37) Alanine Aminotransferase (ALT/SGPT) 10 U/L (12-78) L Alkaline Phosphatase 85 U/L (46-116) C-Reactive Protein, Quantitative 5.1 mg/dL (0.00-0.90) H Total Protein 5.6 G/DL (6.4-8.2) L Albumin 1.8 G/DL (3.4-5.0) L Globulin 3.8 g/dL Albumin/Globulin Ratio 0.5 (1.0-2.7) L Test 02/22/20 16:36 POC Whole Blood Glucose 91 MG/DL (74-106) Intake and Output 02/21/20 02/22/20 19:00 07:00 Intake Total 50 ml 500 ml Output Total 300 ml 600 ml Balance -250 ml -100 ml IV Total 50 ml 500 ml Output Urine Total 300 ml 600 ml Objective PHYSICAL EXAMINATION: GENERAL: The patient awake, responsive, and in no acute distress, however, looking chronically ill-appearing patient. HEAD AND NECK: Pupils are equal and reactive to light. Extraocular movements are intact. Neck was supple. No JVD. LUNGS: Good air entry. No wheezing or rales. Poor inspiratory effort. HEART: S1, S2. Regular rhythm. No murmur or gallops. ABDOMEN: Soft, nondistended, and nontender. Positive bowel sounds. EXTREMITIES: No cyanosis, clubbing or edema. NEUROLOGIC: Cranial nerves II through XII grossly intact. The patient is moving all the extremities spontaneously. RECTAL: Refused and deferred. GENITOURINARY: Refused and deferred. PSYCHIATRIC: Mood and affect is intact. Assessment/Plan Assessment/Plan ASSESSMENT: 1. Generalized weakness 2. Acute kidney injury with ATN. 3. Hypernatremia. 4. Dehydration and hypovolemia. 5. Anemia, most likely anemia of chronic disease. 6. Hypertension. 7. Dyslipidemia. 8. Diabetes type 2. 9. Acute metabolic encephalopathy, most likely secondary to infection as well as dehydration. 10. LLL pneumonia 11. Left pleural effusion 12. Esophagitis 13. colitis PLAN: 1. Med/surg 2. antibiotics = S/P vancomycin and cefepime 3. Code status is Full Code. 4. DVT prophylaxis heparin subcutaneous. 5. Dr. Quezada = Pulmonary/Critical Care 6. GI=Dr Snowden. EGD 02/22/20=esophagitis Rhys Yousif MD Feb 22, 2020 17:37
[2020-02-23] VITALS: BP 135/65
[2020-02-23 04:00] VITALS: BP 144/72
[2020-02-23 05:19] LABS: BASOPHILS % (AUTO) 0.4 % (0.0-2.0); EOSINOPHILS % (AUTO) 0.6 % (0.0-3.0); HEMATOCRIT 24.9 % (37.0-47.0); HEMOGLOBIN 8.7 G/DL (12.0-16.0); LYMPHOCYTES % (AUTO) 15.5 % (20.0-45.0); MEAN CORPUSCULAR VOLUME 91 FL (80-99); MONOCYTES % (AUTO) 5.9 % (1.0-10.0); NEUTROPHILS % (AUTO) 77.6 % (45.0-75.0); PLATELET COUNT 478 K/UL (150-450); RED BLOOD COUNT 2.74 M/UL (4.20-5.40); RED CELL DISTRIBUTION WIDTH 11.6 % (11.6-14.8); WHITE BLOOD COUNT 9.2 K/UL (4.8-10.8)
[2020-02-23 05:32] LABS: CARBON DIOXIDE 23 MMOL/L (21-32)
[2020-02-23 06:00] LABS: CHLORIDE 105 MMOL/L (98-107); POTASSIUM 3.5 MMOL/L (3.5-5.1); SODIUM 137 MMOL/L (136-145)
[2020-02-23 06:08] LABS: BLOOD UREA NITROGEN 10 mg/dL (7-18)
[2020-02-23] MEDS: NovoLOG Insulin Flexpen SUBQ SCH ×2 (06:16→11:30)
[2020-02-23 08:00] VITALS: BP 174/76
[2020-02-23 09:30] VITALS: BP 157/67
[2020-02-23] MEDS: Lactulose 20gm/30ml UDC ORAL SCH (09:32)
[2020-02-23] MEDS: Heparin 5000 units/ml inj SUBQ SCH (09:32)
[2020-02-23] MEDS: Docusate 100mg cap ORAL SCH (09:33)
[2020-02-23] MEDS: Sucralfate 1gm tab ORAL SCH ×2 (09:33→12:45)
[2020-02-23] MEDS: Pantoprazole Inj IVP SCH (09:34)
--- NOTE | 2020-02-23 10:00 | General Progress Note ---
Subjective ROS Limited/Unobtainable: No Allergies: Coded Allergies: NO KNOWN DRUG ALLERGIES (Verified Allergy, Unknown, 06/09/17) Objective Last 24 Hour Vital Signs Date Time Temp Pulse Resp B/P (MAP) Pulse Ox O2 Delivery O2 Flow Rate FiO2 02/23/20 09:33 61 174/76 02/23/20 09:33 174/76 02/23/20 04:00 98.8 67 18 144/72 (96) 93 02/23/20 00:00 98.5 65 18 135/65 (88) 94 02/22/20 21:00 Room Air 02/22/20 20:00 98.7 65 18 120/69 (86) 94 02/22/20 16:00 97.7 59 19 119/72 (88) 95 02/22/20 13:00 97.7 55 19 132/75 (94) 100 02/22/20 12:39 50 14 98 02/22/20 12:25 97.3 53 19 152/57 98 Room Air 02/22/20 12:15 54 21 148/56 98 Room Air 02/22/20 12:00 54 16 145/55 98 Room Air 02/22/20 11:50 53 17 145/60 100 Nasal Cannula 3 02/22/20 11:42 94 14 99 02/22/20 11:40 56 16 144/59 100 Nasal Cannula 3 02/22/20 11:35 55 24 135/61 100 Nasal Cannula 3 02/22/20 11:30 97.7 57 23 127/55 100 Nasal Cannula 3 Intake and Output 02/22/20 02/23/20 19:00 07:00 Intake Total 667.5 ml 362.5 ml Output Total 1900 ml 500 ml Balance -1232.5 ml -137.5 ml IV Total 667.5 ml 362.5 ml Output Urine Total 1900 ml 500 ml # Voids 1 Laboratory Tests 02/22/20 12:56: POC Whole Blood Glucose 98 02/22/20 16:36: POC Whole Blood Glucose 91 02/22/20 20:19: POC Whole Blood Glucose 89 02/23/20 04:51: White Blood Count 9.2, Red Blood Count 2.74L, Hemoglobin 8.7L, Hematocrit 24.9L, Mean Corpuscular Volume 91, Mean Corpuscular Hemoglobin 31.6H, Mean Corpuscular Hemoglobin Concent 34.8, Red Cell Distribution Width 11.6, Platelet Count 478H, Mean Platelet Volume 5.9L, Neutrophils (%) (Auto) 77.6H, Lymphocytes (%) (Auto) 15.5L, Monocytes (%) (Auto) 5.9, Eosinophils (%) (Auto) 0.6, Basophils (%) (Auto) 0.4, Sodium Level 137, Potassium Level 3.5, Chloride Level 105, Carbon Dioxide Level 23, Blood Urea Nitrogen 10, Creatinine 1.0, Estimat Glomerular Filtration Rate 53.9, Glucose Level 107H, Calcium Level 8.0L 02/23/20 05:57: POC Whole Blood Glucose 109H Height (Feet): 5 Height (Inches): 5.00 Weight (Pounds): 109 General Appearance: alert EENT: normal ENT inspection Neck: supple Cardiovascular: normal rate Respiratory/Chest: decreased breath sounds Abdomen: normal bowel sounds, non tender, soft Extremities: non-tender Assessment/Plan Problem List: (1) Altered mental status ICD Codes: R41.82 - Altered mental status, unspecified SNOMED: 254649823 Qualifiers: Qualified Codes: R41.82 - Altered mental status, unspecified (2) Anemia ICD Codes: D64.9 - Anemia, unspecified SNOMED: 203072760 (3) Dehydration ICD Codes: E86.0 - Dehydration SNOMED: 53324949 (4) Pneumonia ICD Codes: J18.9 - Pneumonia, unspecified organism SNOMED: 220529007 Qualifiers: Qualified Codes: J18.9 - Pneumonia, unspecified organism Assessment/Plan: fu H&H and transfuse to keep HGB above 7 CT reviewed>>>? colitis and esophagitis ppi bowel regimen s/p EGD: SUMMARY OF FINDINGS: 1. Severe erosive distal esophagitis. 2. Atrophic gastritis. 3. Hiatal hernia. RECOMMENDATIONS: Reflux measures. Continue on Protonix. Add Carafate. Monitor hemoglobin and hematocrit. Transfuse as needed. Follow up biopsy results needs out patient colonoscopy Ang Snowden MD Feb 23, 2020 10:00
--- NOTE | 2020-02-23 11:17 | Infectious Diseases Prog Note ---
Assessment/Plan 74yo F with: Febrile to 100.4 Leukocytosis to 11 AMS AMOS, Cr 1.8 02/15 BCx p UA 2-4 WBC COVID screen neg MRSA nares p Resp cx p CXR: Left pleural effusion. Hazy generalized opacity probably related to such but could also indicate infiltrate Dementia SNF resident Plan: Monitor off abx - 02/22/20 SP cefepime & vanco IV #6 F/u BCx, resp cx Trend WBC Trend resp status Monitor CBC/CMP Monitor resp status Monitor temp curve and hemodynamics Thank you for this consult. [facility] will continue to follow. Subjective Allergies: Coded Allergies: NO KNOWN DRUG ALLERGIES (Verified Allergy, Unknown, 06/09/17) Afebrile No Leukocytosis DARI Objective Last 24 Hour Vital Signs Date Time Temp Pulse Resp B/P (MAP) Pulse Ox O2 Delivery O2 Flow Rate FiO2 02/23/20 09:33 61 174/76 02/23/20 09:33 174/76 02/23/20 09:30 157/67 (97) 02/23/20 09:00 Room Air 02/23/20 08:00 97.3 61 20 174/76 (108) 97 02/23/20 04:00 98.8 67 18 144/72 (96) 93 02/23/20 00:00 98.5 65 18 135/65 (88) 94 02/22/20 21:00 Room Air 02/22/20 20:00 98.7 65 18 120/69 (86) 94 02/22/20 16:00 97.7 59 19 119/72 (88) 95 02/22/20 13:00 97.7 55 19 132/75 (94) 100 02/22/20 12:39 50 14 98 02/22/20 12:25 97.3 53 19 152/57 98 Room Air 02/22/20 12:15 54 21 148/56 98 Room Air 02/22/20 12:00 54 16 145/55 98 Room Air 02/22/20 11:50 53 17 145/60 100 Nasal Cannula 3 02/22/20 11:42 94 14 99 02/22/20 11:40 56 16 144/59 100 Nasal Cannula 3 02/22/20 11:35 55 24 135/61 100 Nasal Cannula 3 02/22/20 11:30 97.7 57 23 127/55 100 Nasal Cannula 3 Height (Feet): 5 Height (Inches): 5.00 Weight (Pounds): 109 Gen: NAD on RA HEENT: NCAT, EOMI Pulm: BL chest rise Abd: Soft, ND Laboratory Tests Test 02/22/20 12:56 02/22/20 16:36 02/22/20 20:19 02/23/20 04:51 POC Whole Blood Glucose 98 MG/DL (74-106) 91 MG/DL (74-106) 89 MG/DL (74-106) White Blood Count 9.2 K/UL (4.8-10.8) Red Blood Count 2.74 M/UL (4.20-5.40) L Hemoglobin 8.7 G/DL (12.0-16.0) L Hematocrit 24.9 % (37.0-47.0) L Mean Corpuscular Volume 91 FL (80-99) Mean Corpuscular Hemoglobin 31.6 PG (27.0-31.0) H Mean Corpuscular Hemoglobin Concent 34.8 G/DL (32.0-36.0) Red Cell Distribution Width 11.6 % (11.6-14.8) Platelet Count 478 K/UL (150-450) H Mean Platelet Volume 5.9 FL (6.5-10.1) L Neutrophils (%) (Auto) 77.6 % (45.0-75.0) H Lymphocytes (%) (Auto) 15.5 % (20.0-45.0) L Monocytes (%) (Auto) 5.9 % (1.0-10.0) Eosinophils (%) (Auto) 0.6 % (0.0-3.0) Basophils (%) (Auto) 0.4 % (0.0-2.0) Sodium Level 137 MMOL/L (136-145) Potassium Level 3.5 MMOL/L (3.5-5.1) Chloride Level 105 MMOL/L (98-107) Carbon Dioxide Level 23 MMOL/L (21-32) Blood Urea Nitrogen 10 mg/dL (7-18) Creatinine 1.0 MG/DL (0.55-1.30) Estimat Glomerular Filtration Rate 53.9 mL/min (>60) Glucose Level 107 MG/DL (74-106) H Calcium Level 8.0 MG/DL (8.5-10.1) L Test 02/23/20 05:57 POC Whole Blood Glucose 109 MG/DL (74-106) H Current Medications Medications (Trade) Dose Ordered Sig/Kannan Route PRN Reason Start Time Stop Time Status Last Admin Dose Admin Acetaminophen (Tylenol) 650 mg Q4H PRN ORAL fever 02/16/20 12:15 03/17/20 12:14 Amlodipine Besylate (Norvasc) 10 mg DAILY ORAL 02/19/20 13:00 03/20/20 12:59 02/23/20 09:33 Clonidine HCl (Catapres Tab) 0.1 mg Q6H PRN ORAL For SBP >160 02/19/20 10:45 05/19/20 10:44 02/23/20 09:33 Dextrose (Dextrose 50%) 25 ml Q30M PRN IV Hypoglycemia 02/16/20 12:15 05/16/20 12:14 Dextrose (Dextrose 50%) 50 ml Q30M PRN IV Hypoglycemia 02/16/20 12:15 05/16/20 12:14 Dextrose/Sodium Chloride 1,000 ml @ 50 mls/hr Q20H IV 02/20/20 08:45 03/21/20 08:44 02/22/20 20:15 Docusate Sodium (Colace) 100 mg TWICE A DAY ORAL 02/20/20 18:00 03/21/20 17:59 02/23/20 09:33 Enalaprilat (Vasotec) 2.5 mg Q6H PRN IV SBP>160 02/19/20 15:00 03/20/20 14:59 Folic Acid (Folate) 2 mg DAILY ORAL 02/17/20 15:45 03/18/20 15:44 02/23/20 09:33 Heparin Sodium (Porcine) (Heparin 5000 units/ml) 5,000 units EVERY 12 HOURS SUBQ 02/16/20 21:00 04/01/20 20:59 02/23/20 09:32 Insulin Aspart (NovoLOG) BEFORE MEALS AND HS SUBQ 02/16/20 16:30 05/16/20 16:29 Lactulose (Cephulac) 20 gm BID ORAL 02/21/20 09:00 03/22/20 08:59 02/23/20 09:32 Nitroglycerin (Ntg) 0.4 mg Q5M PRN SL Prn Chest Pain 02/16/20 12:15 03/17/20 12:14 Ondansetron HCl (Zofran) 4 mg Q6H PRN IVP Nausea & Vomiting 02/16/20 12:15 03/17/20 12:14 02/19/20 11:46 Pantoprazole (Protonix) 40 mg DAILY IVP 02/21/20 09:00 03/22/20 08:59 02/23/20 09:34 Polyethylene Glycol (Miralax) 17 gm DAILYPRN PRN ORAL Constipation 02/16/20 12:15 03/17/20 12:14 Promethazine HCl/ Codeine (Phenergan with Codeine) 5 ml Q4H PRN ORAL For Cough 02/16/20 12:15 03/17/20 12:14 Sucralfate (Carafate) 1 gm FOUR TIMES A DAY ORAL 02/22/20 13:00 05/22/20 12:59 02/23/20 09:33 Temazepam (Restoril) 15 mg HSPRN PRN ORAL Insomnia 02/16/20 12:15 02/23/20 12:14 Ethan Bell MD Feb 23, 2020 11:17
--- NOTE | 2020-02-23 11:56 | Pulmonology Progress Note ---
Subjective ROS Limited/Unobtainable: No Constitutional: Reports: no symptoms HEENT: Repors: no symptoms Allergies: Coded Allergies: NO KNOWN DRUG ALLERGIES (Verified Allergy, Unknown, 06/09/17) Objective Last 24 Hour Vital Signs Date Time Temp Pulse Resp B/P (MAP) Pulse Ox O2 Delivery O2 Flow Rate FiO2 02/23/20 09:33 61 174/76 02/23/20 09:33 174/76 02/23/20 09:30 157/67 (97) 02/23/20 09:00 Room Air 02/23/20 08:00 97.3 61 20 174/76 (108) 97 02/23/20 04:00 98.8 67 18 144/72 (96) 93 02/23/20 00:00 98.5 65 18 135/65 (88) 94 02/22/20 21:00 Room Air 02/22/20 20:00 98.7 65 18 120/69 (86) 94 02/22/20 16:00 97.7 59 19 119/72 (88) 95 02/22/20 13:00 97.7 55 19 132/75 (94) 100 02/22/20 12:39 50 14 98 02/22/20 12:25 97.3 53 19 152/57 98 Room Air 02/22/20 12:15 54 21 148/56 98 Room Air 02/22/20 12:00 54 16 145/55 98 Room Air Intake and Output 02/22/20 02/23/20 19:00 07:00 Intake Total 667.5 ml 362.5 ml Output Total 1900 ml 500 ml Balance -1232.5 ml -137.5 ml IV Total 667.5 ml 362.5 ml Output Urine Total 1900 ml 500 ml # Voids 1 General Appearance: WD/WN HEENT: normocephalic, atraumatic Respiratory: chest wall non-tender, lungs clear Breasts: no masses Cardiovascular: normal peripheral pulses, normal rate, no JVD Abdomen: normal bowel sounds, soft, non tender Genitourinary: normal external genitalia Extremities: no cyanosis Skin: no rash, no lesions Neurologic: zinc plate grainer II-XII grossly normal Lymphatic: no neck adenopathy Laboratory Tests 02/22/20 12:56: POC Whole Blood Glucose 98 02/22/20 16:36: POC Whole Blood Glucose 91 02/22/20 20:19: POC Whole Blood Glucose 89 02/23/20 04:51: White Blood Count 9.2, Red Blood Count 2.74L, Hemoglobin 8.7L, Hematocrit 24.9L, Mean Corpuscular Volume 91, Mean Corpuscular Hemoglobin 31.6H, Mean Corpuscular Hemoglobin Concent 34.8, Red Cell Distribution Width 11.6, Platelet Count 478H, Mean Platelet Volume 5.9L, Neutrophils (%) (Auto) 77.6H, Lymphocytes (%) (Auto) 15.5L, Monocytes (%) (Auto) 5.9, Eosinophils (%) (Auto) 0.6, Basophils (%) (Auto) 0.4, Sodium Level 137, Potassium Level 3.5, Chloride Level 105, Carbon Dioxide Level 23, Blood Urea Nitrogen 10, Creatinine 1.0, Estimat Glomerular Filtration Rate 53.9, Glucose Level 107H, Calcium Level 8.0L 02/23/20 05:57: POC Whole Blood Glucose 109H 02/23/20 11:44: POC Whole Blood Glucose 115H Current Medications Medications (Trade) Dose Ordered Sig/Kannan Route PRN Reason Start Time Stop Time Status Last Admin Dose Admin Acetaminophen (Tylenol) 650 mg Q4H PRN ORAL fever 02/16/20 12:15 03/17/20 12:14 Amlodipine Besylate (Norvasc) 10 mg DAILY ORAL 02/19/20 13:00 03/20/20 12:59 02/23/20 09:33 Clonidine HCl (Catapres Tab) 0.1 mg Q6H PRN ORAL For SBP >160 02/19/20 10:45 05/19/20 10:44 02/23/20 09:33 Dextrose (Dextrose 50%) 25 ml Q30M PRN IV Hypoglycemia 02/16/20 12:15 05/16/20 12:14 Dextrose (Dextrose 50%) 50 ml Q30M PRN IV Hypoglycemia 02/16/20 12:15 05/16/20 12:14 Dextrose/Sodium Chloride 1,000 ml @ 50 mls/hr Q20H IV 02/20/20 08:45 03/21/20 08:44 02/22/20 20:15 Docusate Sodium (Colace) 100 mg TWICE A DAY ORAL 02/20/20 18:00 03/21/20 17:59 02/23/20 09:33 Enalaprilat (Vasotec) 2.5 mg Q6H PRN IV SBP>160 02/19/20 15:00 03/20/20 14:59 Folic Acid (Folate) 2 mg DAILY ORAL 02/17/20 15:45 03/18/20 15:44 02/23/20 09:33 Heparin Sodium (Porcine) (Heparin 5000 units/ml) 5,000 units EVERY 12 HOURS SUBQ 02/16/20 21:00 11 20:59 02/23/20 09:32 Insulin Aspart (NovoLOG) BEFORE MEALS AND HS SUBQ 02/16/20 16:30 05/16/20 16:29 Lactulose (Cephulac) 20 gm BID ORAL 02/21/20 09:00 03/22/20 08:59 02/23/20 09:32 Nitroglycerin (Ntg) 0.4 mg Q5M PRN SL Prn Chest Pain 02/16/20 12:15 03/17/20 12:14 Ondansetron HCl (Zofran) 4 mg Q6H PRN IVP Nausea & Vomiting 02/16/20 12:15 03/17/20 12:14 02/19/20 11:46 Pantoprazole (Protonix) 40 mg DAILY IVP 02/21/20 09:00 03/22/20 08:59 02/23/20 09:34 Polyethylene Glycol (Miralax) 17 gm DAILYPRN PRN ORAL Constipation 02/16/20 12:15 03/17/20 12:14 Promethazine HCl/ Codeine (Phenergan with Codeine) 5 ml Q4H PRN ORAL For Cough 02/16/20 12:15 03/17/20 12:14 Sucralfate (Carafate) 1 gm FOUR TIMES A DAY ORAL 02/22/20 13:00 05/22/20 12:59 02/23/20 09:33 Temazepam (Restoril) 15 mg HSPRN PRN ORAL Insomnia 02/16/20 12:15 02/23/20 12:14 Assessment/Plan Problems: (1) Sepsis (2) Acute metabolic encephalopathy (3) ATN (acute tubular necrosis) (4) Generalized weakness (5) Pneumonia (6) Diabetes mellitus Assessment/Plan wbc decreasing no more vomiting zofran prn Labetotol iv for BPpan culture iv abx iv fluids to correct the hypernatremia slidng scale swallow study when better Oscar Quezada MD Feb 23, 2020 11:56
[2020-02-23 12:00] VITALS: BP 142/67
--- NOTE | 2020-02-23 13:24 | Nephrology Progress Note ---
Assessment/Plan Problem List: (1) ATN (acute tubular necrosis) (2) Diabetes mellitus (3) Hypertension, uncontrolled (4) Anemia (5) Dehydration (6) Electrolyte imbalance Assessment Acute on chronic renal failure, dehydration Mild hypernatremia, free water deficit Anemia Hyperglycemia History of hypertension History of diabetes type 2, diabetic nephropathy Toxic metabolic encephalopathy Plan February 22: Labs reviewed. Stable from renal standpoint of view. February 21: Labs reviewed. Abnormal electrolyte addressed. Continue per consultants. February 20: Patient lethargic. Low potassium replaced. Stable from renal standpoint of view. Continue per consultants. February 19: Patient n.p.o. for CAT scan of the abdomen. Blood pressure better controlled. Low potassium addressed with IV supplements. Continue per consultants. February 18: Blood pressure somewhat elevated, Norvasc for high blood pressure given. Labs reviewed. Renal parameters stable. Continue per consultants. Previously: Hydrate, slow, as needed Monitor renal parameters and electrolytes Keep the blood pressure and blood sugar in check Avoid nephrotoxic's Folic acid supplement p.o. Subjective ROS Limited/Unobtainable: No Constitutional: Reports: malaise Objective Objective Last 24 Hour Vital Signs Date Time Temp Pulse Resp B/P (MAP) Pulse Ox O2 Delivery O2 Flow Rate FiO2 02/23/20 12:00 97.1 60 20 142/67 (92) 98 02/23/20 09:33 61 174/76 02/23/20 09:33 174/76 02/23/20 09:30 157/67 (97) 02/23/20 09:00 Room Air 02/23/20 08:00 97.3 61 20 174/76 (108) 97 02/23/20 04:00 98.8 67 18 144/72 (96) 93 02/23/20 00:00 98.5 65 18 135/65 (88) 94 02/22/20 21:00 Room Air 02/22/20 20:00 98.7 65 18 120/69 (86) 94 02/22/20 16:00 97.7 59 19 119/72 (88) 95 Intake and Output 02/22/20 02/23/20 19:00 07:00 Intake Total 667.5 ml 362.5 ml Output Total 1900 ml 500 ml Balance -1232.5 ml -137.5 ml IV Total 667.5 ml 362.5 ml Output Urine Total 1900 ml 500 ml # Voids 1 Laboratory Tests 02/22/20 16:36: POC Whole Blood Glucose 91 02/22/20 20:19: POC Whole Blood Glucose 89 02/23/20 04:51: White Blood Count 9.2, Red Blood Count 2.74L, Hemoglobin 8.7L, Hematocrit 24.9L, Mean Corpuscular Volume 91, Mean Corpuscular Hemoglobin 31.6H, Mean Corpuscular Hemoglobin Concent 34.8, Red Cell Distribution Width 11.6, Platelet Count 478H, Mean Platelet Volume 5.9L, Neutrophils (%) (Auto) 77.6H, Lymphocytes (%) (Auto) 15.5L, Monocytes (%) (Auto) 5.9, Eosinophils (%) (Auto) 0.6, Basophils (%) (Auto) 0.4, Sodium Level 137, Potassium Level 3.5, Chloride Level 105, Carbon Dioxide Level 23, Blood Urea Nitrogen 10, Creatinine 1.0, Estimat Glomerular Filtration Rate 53.9, Glucose Level 107H, Calcium Level 8.0L 02/23/20 05:57: POC Whole Blood Glucose 109H 02/23/20 11:44: POC Whole Blood Glucose 115H Height (Feet): 5 Height (Inches): 5.00 Weight (Pounds): 109 General Appearance: no apparent distress Cardiovascular: normal rate Respiratory/Chest: lungs clear Abdomen: soft Objective No change Humberto Knight MD Feb 23, 2020 13:24
[2020-02-23] MEDS ORDERED: D5 1/2NS 1000ml IV ONE (15:36)
--- NOTE | 2020-02-23 16:37 | Internal Med Progress Note ---
Subjective Physician Name Ari Mckeon Attending Physician Ari Mckeon MD Allergies: Coded Allergies: NO KNOWN DRUG ALLERGIES (Verified Allergy, Unknown, 06/09/17) Subjective alert, responsive,No acute distress, Hgb: 8.7 Objective Last Vital Signs Date Time Temp Pulse Resp B/P (MAP) Pulse Ox O2 Delivery O2 Flow Rate FiO2 02/23/20 12:00 97.1 60 20 142/67 (92) 98 02/23/20 09:00 Room Air 02/22/20 11:50 3 Laboratory Tests Test 02/22/20 16:36 02/22/20 20:19 02/23/20 04:51 02/23/20 05:57 POC Whole Blood Glucose 91 MG/DL (74-106) 89 MG/DL (74-106) 109 MG/DL (74-106) H White Blood Count 9.2 K/UL (4.8-10.8) Red Blood Count 2.74 M/UL (4.20-5.40) L Hemoglobin 8.7 G/DL (12.0-16.0) L Hematocrit 24.9 % (37.0-47.0) L Mean Corpuscular Volume 91 FL (80-99) Mean Corpuscular Hemoglobin 31.6 PG (27.0-31.0) H Mean Corpuscular Hemoglobin Concent 34.8 G/DL (32.0-36.0) Red Cell Distribution Width 11.6 % (11.6-14.8) Platelet Count 478 K/UL (150-450) H Mean Platelet Volume 5.9 FL (6.5-10.1) L Neutrophils (%) (Auto) 77.6 % (45.0-75.0) H Lymphocytes (%) (Auto) 15.5 % (20.0-45.0) L Monocytes (%) (Auto) 5.9 % (1.0-10.0) Eosinophils (%) (Auto) 0.6 % (0.0-3.0) Basophils (%) (Auto) 0.4 % (0.0-2.0) Sodium Level 137 MMOL/L (136-145) Potassium Level 3.5 MMOL/L (3.5-5.1) Chloride Level 105 MMOL/L (98-107) Carbon Dioxide Level 23 MMOL/L (21-32) Blood Urea Nitrogen 10 mg/dL (7-18) Creatinine 1.0 MG/DL (0.55-1.30) Estimat Glomerular Filtration Rate 53.9 mL/min (>60) Glucose Level 107 MG/DL (74-106) H Calcium Level 8.0 MG/DL (8.5-10.1) L Test 02/23/20 11:44 POC Whole Blood Glucose 115 MG/DL (74-106) H Intake and Output 02/22/20 02/23/20 19:00 07:00 Intake Total 667.5 ml 362.5 ml Output Total 1900 ml 500 ml Balance -1232.5 ml -137.5 ml IV Total 667.5 ml 362.5 ml Output Urine Total 1900 ml 500 ml # Voids 1 Objective GENERAL: awake, responsive, and in no acute distress, chronically ill- appearing. HEAD AND NECK: Pupils are equal and reactive to light. Extraocular movements are intact. Neck was supple. No JVD. LUNGS: Good air entry. No wheezing or rales. Poor inspiratory effort. HEART: S1, S2. Regular rhythm. No murmur or gallops. ABDOMEN: Soft, nondistended, and nontender. Positive bowel sounds. EXTREMITIES: No cyanosis, clubbing or edema. NEUROLOGIC: Cranial nerves II through XII grossly intact. moving all the extremities spontaneously. RECTAL: Refused and deferred. GENITOURINARY: Refused and deferred. PSYCHIATRIC: Mood and affect is intact. Assessment/Plan Assessment/Plan ASSESSMENT: 1. Generalized weakness 2. Acute kidney injury with ATN. 3. Hypernatremia. 4. Dehydration and hypovolemia. 5. Anemia, most likely anemia of chronic disease. 6. Hypertension. 7. Dyslipidemia. 8. Diabetes type 2. 9. Acute metabolic encephalopathy, most likely secondary to infection as well as dehydration. 10. LLL pneumonia 11. Left pleural effusion 12. Esophagitis 13. colitis PLAN: 1. Med/surg 2. antibiotics = S/P vancomycin and cefepime 3. Code status is Full Code. 4. DVT prophylaxis heparin subcutaneous. 5. Dr. Quezada = Pulmonary/Critical Care 6. GI=Dr Snowden. EGD 02/22/20=esophagitis DC to SNF today. Ari Mckeon MD Feb 23, 2020 16:37
--- NOTE | 2020-02-25 12:03 | Discharge Summary ---
Discharge Summary Discharge Summary _ DATE OF ADMISSION: 02/16/2020 DATE OF DISCHARGE: 02/23/2020 DISCHARGED BY: Dr. Ari Mckeon CONSULTANTS: Dr. Humberto Snowden [facility] HOSPITAL COURSE: The patient is a 74-year-old female, with past medical history significant for diabetes type 2, hypertension, dyslipidemia, history of alcohol abuse, residing at [facility], presented to the emergency department due to increased weakness. Upon evaluation at ED, vital signs were stable. She was saturating 94% on 5 L mask. Blood work showed WBC 11.7. Hemoglobin 9.5, hematocrit 29. Potassium 150. Chloride 115. BUN 48 and creatinine 1.8. Lactic acid 1.2. Troponin was negative. proBNP was 9600. Urinalyses showed +1 leukocyte esterase, 0-2 urine RBC, 2-4 urine WBC. EKG was in normal sinus rhythm. Chest x-ray showed left pleural effusion and left consolidation, as read by ED physician. COVID test was negative. He was admitted for evaluation of generalized weakness. Patient was admitted to monitored unit. She was given broad-spectrum IV antibiotics cefepime and vancomycin. She was placed on gentle IV hydration. She was placed on heparin for DVT prophylaxis. Patient had episodes of projectile vomiting. She was given Zofran. CT scan of the abdomen and pelvis showed wall thickening and submucosal edema of the ascending and proximal transverse colon. Thickening of the distal esophagus. Small left and trace right pleural effusion. On 02/22/2020, she underwent EGD. Findings showed evidence of severe erosive distal esophagitis and atrophic gastritis. Advised to continue Protonix. Carafate was added. Patient completed antibiotic treatment. There were no further episodes of vomiting. Patient was cleared for discharge back to shelter. FINAL DIAGNOSES: SIRS Generalized weakness Acute kidney injury with ATN Dehydration and hypovolemia with hypernatremia Anemia, most likely anemia of chronic disease Hypertension Dyslipidemia Diabetes type 2 Acute metabolic encephalopathy Left lower lobe pneumonia Esophagitis Colitis Status post EGD 02/22/2020 DISPOSITION: Patient was discharged back to SNF. DISCHARGE MEDICATIONS: Refer to Discharge Medication List. I have been assigned to complete a discharge summary on this account, I was not involved with the patient's management.--FLOWER Lee Jacqueline Robles NP Feb 25, 2020 12:03
== END 2020-02-23 15:37 | DRG 139 ==
LOC: EDUNIT# 10:29 → EDBD 10:29 → EMR 10:50 → EDBEDREQ 10:55 → 2E 11:17 → EDBEDREQ 11:38 → EDBEDREQSVC 11:38 → EDBEDREQ 14:16 → 2E 22:32 → 4E 02-19 23:23
PROC: 30233N1 Transfusion of Nonautologous Red Blood Cells into Peripheral Vein, Percutaneous Approach (ICD-10-PCS; 2020-02-22)
PROC: 0DB78ZX Excision of Stomach, Pylorus, Via Natural or Artificial Opening Endoscopic, Diagnostic (ICD-10-PCS; principal; 2020-02-22 11:24)
DX: J18.9 Pneumonia, unspecified organism (principal); N17.0 Acute kidney failure with tubular necrosis; E43 Unspecified severe protein-calorie malnutrition; G93.41 Metabolic encephalopathy; R65.10 Systemic inflammatory response syndrome (SIRS) of non-infectious origin without acute organ dysfunction; E87.0 Hyperosmolality and hypernatremia; E11.22 Type 2 diabetes mellitus with diabetic chronic kidney disease; E11.65 Type 2 diabetes mellitus with hyperglycemia; E78.2 Mixed hyperlipidemia; E86.0 Dehydration; D63.8 Anemia in other chronic diseases classified elsewhere; E78.5 Hyperlipidemia, unspecified; I10 Essential (primary) hypertension; E86.1 Hypovolemia; Z79.02 Long term (current) use of antithrombotics/antiplatelets; Z79.82 Long term (current) use of aspirin; K52.9 Noninfective gastroenteritis and colitis, unspecified; K22.11 Ulcer of esophagus with bleeding; D50.0 Iron deficiency anemia secondary to blood loss (chronic); K44.9 Diaphragmatic hernia without obstruction or gangrene; Z22.322 Carrier or suspected carrier of Methicillin resistant Staphylococcus aureus
CPT/HCPCS: 36415; 71045; 74177; 80048; 80053; 80069; 80076; 80202; 81003; 82150; 82378; 82550; 82607; 82728; 82746; 82962; 82977; 83036; 83540; 83550; 83605; 83615; 83690; 83735; 83880; 84100; 84443; 84484; 84550; 85007; 85025; 85044; 85060; 85610; 85651; 85730; 86140; 87040; 93005; 94003; 94150; 96361; 96365; 96367; 99291; J1815; J2405; J7030; U0002